=== PATIENT | female | born 1995 | race Caucasian/White ===

== ENCOUNTER → 2018-01-11 11:43 | Outpatient (CLI) | payer MEDICAID, SELFPAY ==
[2018-01-11 14:11] LABS: Absolute Lymphocyte Count 2.58 X10^3/ul (0.83-4.51); Absolute Neutrophil Count 6.5 X10^3/uL (2.0-7.7); Basophil# 0.07 X10^3/uL; Basophil% 0.7 % (0-1); Eosinophil# 0.19 X10^3/uL; Hematocrit 41.9 % (37-47); Lymphocyte # 2.58 X10^3/ul (4.0); Lymphocyte % 26.5 % (19-41); Mean Corp Hgb Conc 33.4 g/gl (32-36); Mean Corpuscular Hgb 27.6 pg (27.0-32.0); Mean Corpuscular Volume 82.6 fL (81-99); Monocyte# 0.42 X10^3/uL; Monocyte% 4.3 % (0-10); Neutrophil # 6.45 X10^3/uL (2.7-7.7); Neutrophil % 66.3 % (47-70); Platelet Count 297 K/mm3 (150-450); RBC Distribution Width CV 14.2 % (11.6-14.6); RBC Distribution Width SD 42.8 fl (35.1-43.9); Red Blood Count 5.07 M/mm3 (4.2-5.4); White Blood Count 9.7 K/mm3 (4.4-11.0)
[2018-01-11 14:12] LABS: POSITIVE COUNT NO; POSITIVE DIFFERENTIAL NO; POSITIVE MORPHOLOGY NO
[2018-01-11 14:37] LABS: AST(SGOT) 29 U/L (15-37); Alanine Aminotransfer ALT/SGPT 44 U/L (13-56); Albumin, Serum 4.5 g/dL (3.2-5.0); Alkaline Phosphatase 51 U/L (45-117); Anion Gap 9 (5-15); BUN 8 mg/dL (7-18); BUN/Creat Ratio 8.3 RATIO (10-20); Calcium,Total 10.4 mg/dL (8.5-10.1); Chloride 104 mmol/L (98-107); Creatinine, Serum 0.96 mg/dL (0.55-1.02); EST Glomerular Filtration Rate 75 mL/min (>60); Est Glom Filt Rate - Afr Amer 91 mL/min (>60); Globulin 4.3 g/dL (2.2-4.2); Glucose 101 mg/dL (74-106); Lipase 121 U/L (73-393); Potassium 4.3 mmol/L (3.5-5.1); Protein, Total 8.8 g/dL (6.4-8.2); Sodium Level 138 mmol/L (136-145); Thyroid Stim Hormone (TSH) 1.15 uIU/mL (0.358-3.74)
== END ==
PROVIDERS: Family Provider Family Medicine; PCP Family Medicine; Visit Provider Family Medicine
DX: R10.11 Right upper quadrant pain (principal)
CPT/HCPCS: 36415; 80053; 83690; 84443; 85025

== ENCOUNTER → 2018-01-12 08:57 | Outpatient (CLI) | payer MEDICAID, SELFPAY ==
--- NOTE | 2018-01-12 09:01 | US_ITS ---
STUDY: ABDOMINAL ULTRASOUND - RIGHT UPPER QUADRANT REASON FOR VISIT: Female, 22 years old. Right upper quadrant pain after cholecystectomy, October 21, 2017. Nausea and vomiting for 2 months. TECHNIQUE: Ultrasound evaluation of the right upper quadrant was performed with real-time and static dominique-scale imaging. TECHNICAL QUALITY: Adequate. COMPARISON: CT of the abdomen and pelvis, March 19, 2014. FINDINGS: Liver: The liver measures 16.1 cm. There is normal echogenicity of the liver. The bile ducts are within normal limits. There is hepatic color flow. The direction of portal flow is hepatopetal. There is no demonstrated mass lesion. Gallbladder: The patient is status post cholecystectomy. No evidence of fluid collection or mass in the gallbladder fossa. Common Bile Duct (C.B.D.): The common bile duct measures 4.7 mm. Pancreas: Normal size of the head, body and tail of the pancreas. There is normal echogenicity of the pancreas. There is no demonstrated pancreatic mass or cyst. Right Kidney: Normal size of the right kidney. The right kidney measures 10.3 cm. Normal renal cortex. The right cortex measures 1.8 cm. There is no demonstrated renal mass or cyst. There is no right hydronephrosis. US/Abdomen Limited IMPRESSION: Normal postcholecystectomy right upper quadrant ultrasound examination. There is no evidence of abnormal fluid collection or mass. Electronically Signed: Frank Haskins DO at 18:52 EDT Tel [phone], Service support ,
== END ==
PROVIDERS: Family Provider Family Medicine; PCP Family Medicine; Visit Provider Family Medicine
DX: R10.11 Right upper quadrant pain (principal)
CPT/HCPCS: 76705

== ENCOUNTER → 2018-06-19 16:08 | Outpatient (CLI) | payer MEDICAID, SELFPAY ==
[2018-06-27 08:58] LABS: HPV HC, High Risk Negative (Negative)
[2018-06-27 08:59] LABS: HPV Reflexed? YES, CHARGE PATIENT
== END ==
PROVIDERS: Visit Provider Obstetrics & Gynecology
DX: Z12.4 Encounter for screening for malignant neoplasm of cervix (principal)
CPT/HCPCS: 87624; 88175; G0145

== ENCOUNTER 2019-01-09 22:50 | Emergency (ER) | payer OTHER, MEDICAID, SELFPAY ==
[2019-01-09 22:50] VITALS: BP 151/88; PULSE 87; RESP 16; TEMP 36.5; O2SAT 98; BMI 37.2
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
== END 2019-01-09 23:22 | disposition home or self-care (01) ==
LOC: ED 23:17
PROVIDERS: Emergency Provider Emergency Medicine; Family Provider Family Medicine; PCP Family Medicine
DX: S09.90XA Unspecified injury of head, initial encounter (principal); S40.012A Contusion of left shoulder, initial encounter; Y08.09XA Assault by strike by other specified type of sport equipment, initial encounter; Y93.9 Activity, unspecified; Y92.199 Unspecified place in other specified residential institution as the place of occurrence of the external cause; Y99.0 Civilian activity done for income or pay; Z90.49 Acquired absence of other specified parts of digestive tract
CPT/HCPCS: 99282

== ENCOUNTER → 2019-01-30 09:55 | Outpatient (CLI) | payer BC, MEDICAID, SELFPAY ==
[2019-01-09 22:50] VITALS: BMI 37.2
[2019-09-26 12:33] VITALS: BMI 37.2
== END ==
PROVIDERS: Family Provider Family Medicine; PCP Family Medicine; Referring Provider Nurse Practitioner Family; Visit Provider Nurse Practitioner Family
DX: R10.813 Right lower quadrant abdominal tenderness (principal)

== ENCOUNTER → 2019-01-30 09:58 | Outpatient (CLI) | payer BC, MEDICAID, SELFPAY ==
[2019-01-09 22:50] VITALS: BMI 37.2
--- NOTE | 2019-01-30 10:02 | RAD_ITS ---
STUDY: X-RAY - ABDOMEN/PELVIS REASON FOR EXAM: Female, 23 years old. Right lower quadrant pain TECHNIQUE: 4 views COMPARISON: None. FINDINGS: Normal visualized lung bases. There is an unremarkable bowel gas pattern. There is no demonstrated free abdominal air. The visualized liver, spleen and kidneys are grossly normal in size and morphology. Normal soft tissue structures. Minimal scoliosis. RAD/Abd Inc Decub and/or Erect IMPRESSION: Normal x-ray examination of the abdomen and pelvis. Electronically Signed: Adalberto Lerma DO at 23:55 EDT Tel [phone], Service support ,
[2019-01-30 12:20] LABS: Anion Gap 5 (5-15); BUN 6 mg/dL (7-18); BUN/Creat Ratio 7.7 RATIO (10-20); Calcium,Total 9.8 mg/dL (8.5-10.1); Chloride 106 mmol/L (98-107); Creatinine, Serum 0.78 mg/dL (0.55-1.02); EST Glomerular Filtration Rate 96 mL/min (>60); Est Glom Filt Rate - Afr Amer 116 mL/min (>60); Glucose 101 mg/dL (74-106); Sodium Level 137 mmol/L (136-145)
[2019-01-30 12:45] LABS: Absolute Lymphocyte Count 2.57 X10^3/ul (0.83-4.51); Absolute Neutrophil Count 4.8 X10^3/uL (2.0-7.7); Basophil# 0.05 X10^3/uL; Basophil% 0.6 % (0-1); Eosinophil# 0.31 X10^3/uL; Eosinophils% 3.7 % (0-5); Hematocrit 41.1 % (37-47); Hemoglobin 13.4 g/dl (12.0-15.0); Lymphocyte # 2.57 X10^3/ul (4.0); Lymphocyte % 30.5 % (19-41); Mean Corp Hgb Conc 32.6 g/gl (32-36); Mean Corpuscular Hgb 26.3 pg (27.0-32.0); Mean Corpuscular Volume 80.7 fL (81-99); Mean Platelet Vol. 11.8 fl (6.2-12.0); Monocyte# 0.64 X10^3/uL; Monocyte% 7.6 % (0-10); Neutrophil # 4.83 X10^3/uL (2.7-7.7); Neutrophil % 57.4 % (47-70); Platelet Count 244 K/mm3 (150-450); RBC Distribution Width CV 14.3 % (11.6-14.6); RBC Distribution Width SD 41.7 fl (35.1-43.9); Red Blood Count 5.09 M/mm3 (4.2-5.4); White Blood Count 8.4 K/mm3 (4.4-11.0)
[2019-01-30 12:59] LABS: POSITIVE COUNT NO; POSITIVE DIFFERENTIAL NO; POSITIVE MORPHOLOGY NO
== END ==
PROVIDERS: Family Provider Family Medicine; PCP Family Medicine; Referring Provider Nurse Practitioner Family; Visit Provider Nurse Practitioner Family
DX: R10.813 Right lower quadrant abdominal tenderness (principal)
CPT/HCPCS: 36415; 74019; 80048; 85025

== ENCOUNTER → 2019-10-07 08:31 | Outpatient (CLI) | payer BC, SELFPAY ==
[2019-09-26 12:33] VITALS: BMI 37.2
--- NOTE | 2019-10-07 08:42 | US_ITS ---
STUDY: ULTRASOUND OF THE FEMALE PELVIS - COMPLETE REASON FOR EXAM: Female, 24 years old. DUB, ABN MENSES - SKIPPING PERIODS LMP: February 18, 2019 TECHNIQUE: Transabdominal and Transvaginal TECHNICAL QUALITY: Adequate. COMPARISON: None. FINDINGS: The uterus is anteverted and is in a midline position. The uterus measures 7.6 x 5.4 sign by 3.6 cm. There is a Nabothian cyst of the cervix. The endometrium measures 10 mm in thickness, and is hyperechoic. There is a 5 mm x 5 mm x 4 mm hypoechoic nodule within the endometrium. An endometrial polyp should be ruled out. There is no demonstrated myometrial mass. I.U.D. - The patient does not have an I.U.D. The right ovary is visualized. The right ovary measures 2.5 cm x 2.9 cm x 3.1 cm. There is no right ovarian cyst or ovarian mass. There is no visualized right adnexal mass or complex lesion. There is normal arterial and normal venous vascularity. The left ovary is visualized. The left ovary measures 3.2 cm x 3 cm x 2.9 cm. There is no left ovarian cyst or ovarian mass. There is no visualized left adnexal mass or complex lesion. There is normal arterial and normal venous vascularity. There is no fluid in the cul-de-sac. The pre void volume of the bladder was 73 ml. Polycystic ovary disease: No. US/Transvaginal Non- IMPRESSION: Findings suggestive of a 5 mm x 5 mm x 4 mm polyp in the endometrium. Electronically Signed: Valentino Tinoco, at 15:21 EST , Service support ,
--- NOTE | 2019-10-07 08:42 | US_ITS ---
STUDY: ULTRASOUND OF THE FEMALE PELVIS - COMPLETE REASON FOR EXAM: Female, 24 years old. DUB, ABN MENSES - SKIPPING PERIODS LMP: February 18, 2019 TECHNIQUE: Transabdominal and Transvaginal TECHNICAL QUALITY: Adequate. COMPARISON: None. FINDINGS: The uterus is anteverted and is in a midline position. The uterus measures 7.6 x 5.4 sign by 3.6 cm. There is a Nabothian cyst of the cervix. The endometrium measures 10 mm in thickness, and is hyperechoic. There is a 5 mm x 5 mm x 4 mm hypoechoic nodule within the endometrium. An endometrial polyp should be ruled out. There is no demonstrated myometrial mass. I.U.D. - The patient does not have an I.U.D. The right ovary is visualized. The right ovary measures 2.5 cm x 2.9 cm x 3.1 cm. There is no right ovarian cyst or ovarian mass. There is no visualized right adnexal mass or complex lesion. There is normal arterial and normal venous vascularity. The left ovary is visualized. The left ovary measures 3.2 cm x 3 cm x 2.9 cm. There is no left ovarian cyst or ovarian mass. There is no visualized left adnexal mass or complex lesion. There is normal arterial and normal venous vascularity. There is no fluid in the cul-de-sac. The pre void volume of the bladder was 73 ml. Polycystic ovary disease: No. US/Pelvic (Non ) IMPRESSION: Findings suggestive of a 5 mm x 5 mm x 4 mm polyp in the endometrium. Electronically Signed: Valentino Tinoco, at 15:21 EST , Service support ,
== END ==
PROVIDERS: Family Provider Family Medicine; PCP Family Medicine; Referring Provider Nurse Practitioner Women's Health; Visit Provider Nurse Practitioner Women's Health
DX: N91.2 Amenorrhea, unspecified (principal)
CPT/HCPCS: 76830; 76856

== ENCOUNTER → 2019-10-13 11:57 | Outpatient (CLI) | payer BC, SELFPAY ==
[2019-09-26 12:33] VITALS: BMI 37.2
[2019-10-13 12:33] LABS: Estradiol 41.7 pg/mL; Prolactin 5.5 ng/mL; Thyroid Stim Hormone (TSH) 0.71 uIU/mL (0.358-3.74)
[2019-10-15 20:07] LABS: DHEA Sulfate 206.1 ug/dL (84.8-378.0)
[2019-10-15 20:48] LABS: Testosterone Free 3.5 pg/mL (0.0-4.2)
== END ==
LOC: LAB 11:59
PROVIDERS: Family Provider Family Medicine; PCP Family Medicine; Referring Provider Nurse Practitioner Women's Health; Visit Provider Nurse Practitioner Women's Health
DX: N91.2 Amenorrhea, unspecified (principal)
CPT/HCPCS: 36415; 82627; 82670; 84146; 84402; 84443; 82626

== ENCOUNTER 2023-03-28 09:04 | Emergency (ER) | payer SELFPAY ==
[2023-03-28 09:05] VITALS: BP 135/74; PULSE 73; RESP 26; TEMP 36.6; O2SAT 99; BMI 32.3
[2023-03-28] MEDS: LORazepam 2 MG/ML Syringe IM (09:42)
--- NOTE | 2023-03-28 09:57 | ED.RN ---
Dr. James states pt. erika not need a sitter at this time.
[2023-03-28 10:10] LABS: Absolute Lymphocyte Count 2.99 X10^3/uL (0.83-4.51); Absolute Neutrophil Count 9.6 X10^3/uL (2.0-7.7); Basophil# 0.09 X10^3/uL; Basophil% 0.7 % (0-1); Eosinophil# 0.24 X10^3/uL; Eosinophils% 1.8 % (0-5); Hematocrit 45.1 % (37-47); Hemoglobin 15.2 g/dL (12.0-15.0); Lymphocyte # 2.99 X10^3/ul (0.83-4.51); Mean Corp Hgb Conc 33.7 g/dL (32-36); Mean Corpuscular Hgb 28.5 pg (27.0-32.0); Mean Corpuscular Volume 84.5 fL (81-99); Mean Platelet Vol. 11.6 fl (6.2-12.0); Monocyte# 0.58 X10^3/uL; Monocyte% 4.3 % (0-10); NRBC Flagged by Analyzer 0 % (0-5); Neutrophil # 9.56 X10^3/uL (2.7-7.7); Neutrophil % 70.3 % (47-70); Platelet Count 290 K/mm3 (150-450); RBC Distribution Width CV 13.3 % (11.6-14.6); RBC Distribution Width SD 40.6 fl (35.1-43.9); Red Blood Count 5.34 M/mm3 (4.2-5.4); White Blood Count 13.6 K/mm3 (4.4-11.0)
[2023-03-28 10:18] LABS: Internal QC Validated? YES +Cl - CLEAR BKGD; Pregnancy, Serum, hCG Quali. NEGATIVE Negative
[2023-03-28 10:21] LABS: Alcohol, Blood (Medical)-Serum < 3.0 mg/dL
[2023-03-28 10:23] LABS: Anion Gap 12 (5-15); BUN 11 mg/dL (7-18); BUN/Creat Ratio 10.2 RATIO (10-20); Calcium,Total 11.1 mg/dL (8.5-10.1); Chloride 106 mmol/L (98-107); Creatinine, Serum 1.08 mg/dL (0.55-1.02); EST Glomerular Filtration Rate 63 mL/min (>60); Est Glom Filt Rate - Afr Amer 77 mL/min (>60); Glucose 160 mg/dL (74-106); Potassium 3.4 mmol/L (3.5-5.1); Sodium Level 138 mmol/L (136-145)
--- NOTE | 2023-03-28 10:55 | EX.ED.VIS.PS ---
HPI HPI - Psych History of Present Illness Chief Complaint: Suicidal Informant: patient and spouse/S.O. Onset/Context/Timing Onset: Today Context: Sudden Onset Timing: Continuous Worsened by: - (Anxiety) Relieved by: Nothing Associated Symptoms Associated Symptoms - Psych: Positive for Depressed, Suicidal Thoughts and Increased activity; Negative for Paranoia, Visual Hallucinations or Auditory Hallucinations Specific plan (suicidal thought): Cutting her wrists Narrative Narrative: Patient presents with anxiety and suicidal ideations that began today. Patient states she woke up feeling very anxious today. Patient states that it has gotten progressively worse. Patient states it is to the point where she has thought of cutting her wrists. The patient denies any visual or auditory hallucinations. Patient states nothing makes her symptoms better nothing makes them worse. Patient denies any recent trauma or illness. Patient does admit to some subjective chills. Patient admits to some nausea and vomiting due to the anxiety. [facility] Medical History PCOS (polycystic ovarian syndrome) Home Medications metformin 1,000 mg tablet 1,000 mg PO BID 03/28/23 [History Last Taken Unknown] Allergy/AdvReac Type Severity Reaction Status Date / Time No Known Allergies Allergy Verified 09/26/19 12:27 Family History (Updated 06/26/19 @ 14:12 by Angelic Kowalski) Mother Cancer skin Surgical History FH: cholecystectomy right salpingectomy Social History number of children: 0 current occupational status: employed current occupation: [employer] Smoking Status: Never smoker Smokeless tobacco user: chewing tobacco alcohol intake: current alcohol intake frequency: holidays/special occasions only substance use type: marijuana seatbelt use: always do you feel safe at home: Yes additional social history: [employer] ROS ROS ED Constitutional Constitutional ED: Reports chills and subjective; Denies fever(s) Eyes Eyes: Denies blurry vision or change in vision ENT ENT ED: Denies rhinorrhea or sore throat Cardiovascular Cardiovascular: Denies chest pain or palpitations Respiratory/Chest Respiratory/Chest: Denies cough or dyspnea Gastrointestinal Gastrointestinal: Reports nausea and vomiting Genitourinary Genitourinary ED: Denies dysuria or hematuria Musculoskeletal Musculoskeletal: Denies back pain or neck pain Integumentary Denies abscess or rash Neurologic Neurologic: Denies headache(s) or weakness Psychiatric Psychiatric: Reports anxiety, suicidal ideation and suicidal thoughts Allergic/Immunologic Allergic/Immunologic ED: Denies mouth swelling or urticaria EXAM Physical Exam Const Vital Signs: 03/28/23 09:05 Temperature 97.9 F Temperature Source Temporal Pulse Rate 73 Respiratory Rate 26 H Blood Pressure 135/74 H Blood Pressure Mean 94 Pulse Ox 99 Oxygen Delivery Method Room Air Positive well nourished, well developed and obese General Appearance ED: well developed and NAD Nutritional Appearance: obese HEENT Reports moist mucous membranes Neck supple and no JVD Resp normal respiratory effort and clear to auscultation bilaterally Cardio regular rate, regular rhythm and no murmurs GI normal to inspection, nondistended, normoactive bowel sounds and non-tender Palpation: soft Extremity normal to inspection General Extremety ED: Negative for edema or tenderness General Extremity: Negative for edema Neuro oriented x3, CN's II-XII intact bilaterally and no sensory deficits noted Sensorium / Orientation: alert Motor Exam: strength 5/5 throughout Psych mental status grossly normal Appearance: grossly normal Activity / Motor Behavior: appropriate eye contact and restless Speech: normal speech Mood & Affect: anxious Thought Process: normal thought process Thought Content: normal thought content Memory / Cognition: memory grossly intact Skin no rashes or lesions noted MDM MDM MDM Narrative Medical decision making narrative: Basic medical labs will be obtained for medical clearance. CBC will be obtained to assess for leukocytosis and anemia. Basic metabolic profile will be obtained to assess for electrolyte abnormality and renal function. Serum hCG will be obtained to assess for . Urinalysis will be obtained to assess for urinary tract infection and hematuria. Urine tox screen will be obtained to assess for substance abuse. Serum alcohol level will be obtained to assess for alcohol intoxication. Lab Data Attestation: I reviewed the patient's lab results. Lab results narrative: CBC shows a slight leukocytosis of 13.6. Basic metabolic profile was essentially within normal limits. Serum alcohol level was less than 3. Serum hCG was negative. Urinalysis was reviewed. There is no evidence of hematuria or urinary tract infection. Urine tox screen was reviewed and was positive for opiates and cannabinoids. Labs: Laboratory Results - last 24 hr 03/28/23 03/28/23 03/28/23 10:00 10:00 10:00 WBC 13.6 H RBC 5.34 Hgb 15.2 H Hct 45.1 MCV 84.5 MCH 28.5 MCHC 33.7 RDW Std Deviation 40.6 RDW Coeff of Jennifer 13.3 Plt Count 290 MPV 11.6 Immature Gran % (Auto) 0.900 Neut % (Auto) 70.3 H Lymph % (Auto) 22.0 [place] % (Auto) 4.3 Eos % (Auto) 1.8 Baso % (Auto) 0.7 Absolute Neuts (auto) 9.6 H Absolute Lymphs (auto) 2.99 Nucleated RBC % 0 Sodium 138 Potassium 3.4 L Chloride 106 Carbon Dioxide 20.0 L Anion Gap 12 BUN 11 Creatinine 1.08 H Estim Creat Clear Calc 71.30 Est GFR (MDRD) Af Amer 77 Est GFR (MDRD) Non-Af 63 BUN/Creatinine Ratio 10.2 Glucose 160 H Calcium 11.1 H Serum , Qual Urine Color Urine Clarity Urine pH Ur Specific [employer] Mdl Urine Protein Urine Glucose (UA) Urine Ketones Urine Occult Blood Urine Nitrite Urine Bilirubin Urine Urobilinogen Ur Leukocyte Esterase Urine RBC Urine WBC Ur Squamous Epith Cells Urine Bacteria Urine Mucus Urine Opiates Screen Urine Methadone Screen Ur Barbiturates Screen Ur Phencyclidine Scrn Ur Amphetamines Screen MDMA (Ecstasy) Screen U Benzodiazepines Scrn Urine Cocaine Screen U Cannabinoids Screen Ur Drug Screen Comment Ethyl Alcohol < 3.0 03/28/23 03/28/23 03/28/23 10:00 14:15 14:15 WBC RBC Hgb Hct MCV MCH MCHC RDW Std Deviation RDW Coeff of Jennifer Plt Count MPV Immature Gran % (Auto) Neut % (Auto) Lymph % (Auto) [place] % (Auto) Eos % (Auto) Baso % (Auto) Absolute Neuts (auto) Absolute Lymphs (auto) Nucleated RBC % Sodium Potassium Chloride Carbon Dioxide Anion Gap BUN Creatinine Estim Creat Clear Calc Est GFR (MDRD) Af Amer Est GFR (MDRD) Non-Af BUN/Creatinine Ratio Glucose Calcium Serum , Qual NEGATIVE Urine Color Straw Urine Clarity Clear Urine pH 8.0 Ur Specific [employer] Mdl 1.015 Urine Protein 30 H Urine Glucose (UA) Normal Urine Ketones 150 A* Urine Occult Blood Negative Urine Nitrite Negative Urine Bilirubin Negative Urine Urobilinogen Normal Ur Leukocyte Esterase Negative Urine RBC 0 SEEN Urine WBC 0 SEEN Ur Squamous Epith Cells 0 SEEN Urine Bacteria 0 SEEN Urine Mucus 0 SEEN Urine Opiates Screen POSITIVE H Urine Methadone Screen NEGATIVE Ur Barbiturates Screen NEGATIVE Ur Phencyclidine Scrn NEGATIVE Ur Amphetamines Screen NEGATIVE MDMA (Ecstasy) Screen NEGATIVE U Benzodiazepines Scrn NEGATIVE Urine Cocaine Screen NEGATIVE U Cannabinoids Screen POSITIVE H Ur Drug Screen Comment Ethyl Alcohol Management Discussion w/another healthcare provider: production staff worker/Case management Treatment and Re-Evaluation Narrative: Patient was given a dose of Ativan initially. Patient was having more abdominal pain when crisis came to evaluate the patient. Patient was given a dose of morphine for this. Patient was feeling better after this. Crisis was able to evaluate the patient and felt patient would benefit from inpatient treatment for her suicidal ideations. Crisis will attempt to find placement. However, the patient is uninsured and will likely need to be transferred to [facility]. Care of the patient will be turned over to the oncoming physician pending psychiatric placement. Discharge Plan Triage Chief Complaint: Suicidal Other Complaint: Anxiety ED Provider: Omkar James Dx/Rx/DC Orders Clinical Impression: Suicidal ideations, Acute anxiety Prescriptions: No Action metformin 1,000 mg Tablet 1,000 mg PO BID Primary Care Provider: Care Physician,No Primary Referrals: Care Physician,No Primary [Primary Care Provider] - Disposition Disposition: Psychiatric Hospital or Unit
--- NOTE | 2023-03-28 11:33 | CM.ED ---
Social Work SW introduced self and role to patient and spouse. SW conducted a risk assessment which indicated patient has SI with a plan exacerbated by anxiety with current panic attack. Pt has multiple stressors and self-reports a history of untreated mental health concerns. Patient moved from [place] yesterday with spouse for family support and currently has no insurance. Pt believes a psych placement would be helpful and SW is in agreement, especially in light of high risk factors, no insurance and no established services currently. SW explained process to patient and contacted crisis for evaluation. SW faxed chart to crisis. Plan: Crisis to evaluate patient with likely placement that will require indigent funding. Glory Molina PRODUCT TECHNICIAN, ENGINEERING AID
[2023-03-28] MEDS: Morphine 4 MG/ML Syringe IM (13:01)
[2023-03-28 14:24] LABS: Bacteria 0 SEEN /hpf (None Seen); Mucous, Urine 0 SEEN /hpf (<or=2+); Red Blood Cells-Urine 0 SEEN /hpf (0-5); Squamous Epithelial Cells - UA 0 SEEN /hpf (5-10); White Blood Cells 0 SEEN /hpf (0-5)
[2023-03-28 14:33] LABS: Color, Urine Straw (Yellow); Glucose, Dipstick Normal (Normal); Leukocyte Esterase-Dipstick Negative /ul (Negative); Nitrite-Dipstick Negative (Negative); Occult Blood-Urine Negative /ul (Negative); Protein-Dipstick 30 mg/dl (Negative); Specific Gravity, Urine 1.015 (1.002-1.030); Urine Bilirubin Dipstick Negative (Negative); Urine Clarity Clear (Clear); Urine Urobilinogen Normal (Normal)
[2023-03-28 14:40] LABS: Ketone-Dipstick 150 mg/dl (Negative)
[2023-03-28 14:58] LABS: Amphetamine Urine VISTA NEGATIVE (<1000 ng/mL); Barbiturate Urine VISTA NEGATIVE (< 200 ng/mL); Benzodiazepine Urine VISTA NEGATIVE (< 200 ng/mL); Cocaine Urine VISTA NEGATIVE (< 300 ng/mL); Ecstacy Urine VISTA NEGATIVE (< 500 ng/mL); Methadone Urine VISTA NEGATIVE (< 300 ng/mL); PCP Urine VISTA NEGATIVE (< 25 ng/mL); THC Urine VISTA POSITIVE (< 50 ng/mL); Vista UDS pH Range 7
[2023-03-28 16:15] VITALS: BP 117/93; PULSE 90; RESP 18; TEMP 35.9; O2SAT 98
--- NOTE | 2023-03-28 16:26 | EKG12_ITS ---
Test Reason : Blood Pressure : / mmHG Vent. Rate : 063 BPM Atrial Rate : 063 BPM P-R Int : 162 ms QRS Dur : 090 ms QT Int : 416 ms P-R-T Axes : 034 -02 -02 degrees QTc Int : 425 ms Sinus rhythm with marked sinus arrhythmia Nonspecific T wave abnormality Abnormal ECG No previous ECGs available Confirmed by SOL BATISTA, JOANA ([id number]), assistant film editor ARNALDO VAZQUEZ ([id number]) on 03/31/2023 9:26:47 AM Referred By: Confirmed By:JOANA HORTON MD
--- NOTE | 2023-03-28 16:28 | NURSING ---
NO OLD EKGS
[2023-03-28] MEDS: Ondansetron ODT 4 MG Tablet PO (16:43)
--- NOTE | 2023-03-28 20:02 | CM.ED ---
Social Work Crisis called to report patient has been referred to [facility]. [place] CNO reports physician will review tomorrow. Glory Molina FUNDRAISING DIRECTOR, PSYCHIATRIC MENTAL HEALTH NURSE
[2023-03-28 21:36] VITALS: BP 137/84; PULSE 89; RESP 18; TEMP 36.8; O2SAT 98
[2023-03-28 23:00] VITALS: RESP 16
[2023-03-29] VITALS (7 sets, daily range): BP systolic 117–148; BP diastolic 60–83; PULSE 72–78; RESP 16–18; TEMP 36.2–36.4; O2SAT 98–99
[2023-03-29] MEDS: traZODone 100 MG Tablet PO (01:18)
--- NOTE | 2023-03-29 07:24 | ED.RN ---
see patient down time charting from [id number]
--- NOTE | 2023-03-29 07:25 | ED.RN ---
[facility] called for additional information faxed to them. information given to them and faxed to them per their request
[2023-03-29] MEDS: Ondansetron ODT 4 MG Tablet PO ×3 (09:30→21:44)
[2023-03-29] MEDS: LORazepam 1 MG Tablet PO (09:30)
--- NOTE | 2023-03-29 10:54 | CM.ED ---
Social Work SW spoke with [facility] and [place] CNO. [place] reports psychiatrist has medical concerns and is having their packaging design engineer review medical documentation. Requested [facility] to notify hospital if any further tests are needed. Glory Molina PANTS CLOSER, YARD STOCKER
[2023-03-29 12:30] LABS: Absolute Lymphocyte Count 4.08 X10^3/uL (0.83-4.51); Absolute Neutrophil Count 11.2 X10^3/uL (2.0-7.7); Basophil# 0.06 X10^3/uL; Basophil% 0.4 % (0-1); Eosinophil# 0.06 X10^3/uL; Eosinophils% 0.4 % (0-5); Hematocrit 39.9 % (37-47); Hemoglobin 13.7 g/dL (12.0-15.0); Lymphocyte # 4.08 X10^3/ul (0.83-4.51); Lymphocyte % 24.7 % (19-41); Mean Corp Hgb Conc 34.3 g/dL (32-36); Mean Corpuscular Hgb 28.8 pg (27.0-32.0); Mean Corpuscular Volume 83.8 fL (81-99); Mean Platelet Vol. 11.4 fl (6.2-12.0); Monocyte# 1.07 X10^3/uL; Monocyte% 6.5 % (0-10); NRBC Flagged by Analyzer 0 % (0-5); Neutrophil # 11.17 X10^3/uL (2.7-7.7); Neutrophil % 67.3 % (47-70); Platelet Count 308 K/mm3 (150-450); RBC Distribution Width CV 13.7 % (11.6-14.6); RBC Distribution Width SD 41.5 fl (35.1-43.9); Red Blood Count 4.76 M/mm3 (4.2-5.4); White Blood Count 16.6 K/mm3 (4.4-11.0)
--- NOTE | 2023-03-29 12:51 | ED.RN ---
gave patient a menu to look at for lunch order
--- NOTE | 2023-03-29 13:07 | CT_ITS ---
INDICATION: vomiting, leukocytosis EXAMINATION: CT ABDOMEN AND PELVIS WITHOUT CONTRAST - CT Abdomen And Pelvis W/O Contrast Injection TECHNIQUE: Helically acquired images were obtained of the abdomen and pelvis without oral or IV contrast. A radiation dose optimization technique was used for this scan. IV Contrast dosage and agent: None. Oral contrast: None. RADIATION DOSAGE (If Supplied By Facility): CTDIvol = ( 18.50 ) mGy, DLP = ( 1012.25 ) mGycm COMPARISON: Prior study dated: March 19, 2014 FINDINGS: LOWER CHEST: Lung bases are clear. No cardiomegaly or pericardial effusion. The lack of intravenous contrast limits evaluation of solid visceral organs. LIVER: Homogeneous. No focal mass. GALLBLADDER AND BILIARY TREE: There is nonvisualization of the gallbladder. No intra- or extrahepatic biliary ductal dilation. PANCREAS: No focal cystic or solid mass. SPLEEN: Normal size without focal cystic or solid mass. ADRENAL GLANDS: No nodules. KIDNEYS AND URETERS: Normal renal size and position. No hydronephrosis. PERITONEUM: No ascites or free air. No other fluid collection. BOWEL: No evidence of acute appendicitis. No stomach or bowel distension. There are scattered diverticula arising from the colon. No focal inflammatory change. LYMPH NODES: No enlarged mesenteric or retroperitoneal lymph nodes. VESSELS: Aorta is non-dilated. URINARY BLADDER: Unremarkable. REPRODUCTIVE ORGANS: No pelvic masses. There is a surgical clip within the pelvis and midline. ABDOMINAL WALL: There is a small fat-containing umbilical hernia. BONES: No lytic or blastic abnormality. CT/Abdomen/Pelvis without Cont IMPRESSION: No acute intra-abdominal process. Colonic diverticulosis. Small fat-containing umbilical hernia. Electronically Signed: Marjorie Toriibo MD at 13:35 EDT ,
[2023-03-29 13:15] LABS: Bacteria 0 SEEN /hpf (None Seen); Mucous, Urine 0 SEEN /hpf (<or=2+); Red Blood Cells-Urine 0 SEEN /hpf (0-5); Squamous Epithelial Cells - UA 0 SEEN /hpf (5-10); White Blood Cells 0 SEEN /hpf (0-5)
[2023-03-29 13:25] LABS: Color, Urine Yellow (Yellow); Glucose, Dipstick Normal (Normal); Ketone-Dipstick 15 mg/dl (Negative); Leukocyte Esterase-Dipstick 25 /ul (Negative); Nitrite-Dipstick Negative (Negative); Occult Blood-Urine 25 /ul (Negative); Protein-Dipstick 30 mg/dl (Negative); Specific Gravity, Urine 1.025 (1.002-1.030); Urine Bilirubin Dipstick Negative (Negative); Urine Clarity Sl. Cloudy (Clear); Urine Urobilinogen 1 mg/dl (Normal)
[2023-03-29 13:45] LABS: Amorphous Sediment 3+
--- NOTE | 2023-03-29 16:07 | CM.ED ---
Social Work SW notified by crisis that [facility] was requesting more medical clearance. SW spoke with [place] CNO twice and after ammonia still operator reviewed they requested a urinalysis and abd/pelvis CT. Tests completed and faxed to [facility] with updated H&P. Glory Molina MSW, BLACK ASH BURNER OPERATOR
--- NOTE | 2023-03-29 20:16 | NURSING ---
RAMONE FROM CRISIS CALLED STATING [facility] RECEIVED ALL THE INFO BUT WILL HAVE TO WAIT TILL TOMORROW TO REVIEW EVERYTHING.
[2023-03-30] VITALS (7 sets, daily range): BP systolic 141–150; BP diastolic 79–85; PULSE 79–81; RESP 14–18; O2SAT 95–96
[2023-03-30] MEDS: LORazepam 1 MG Tablet PO (05:24)
--- NOTE | 2023-03-30 08:15 | ED.RN ---
pt states that she has not been taking morning dose of Metformin to do lack of eating the last couple of months. pt states she is only taking evening dose.
[2023-03-30 09:26] LABS: Bedside Glucose 121 mg/dL (74-106)
== END 2023-03-30 11:25 ==
PROVIDERS: Emergency Medicine; Emergency Provider Emergency Medicine; Visit Provider Emergency Medicine
DX: F41.9 Anxiety disorder, unspecified (principal); Z59.7 Insufficient social insurance and welfare support; R45.851 Suicidal ideations; R11.2 Nausea with vomiting, unspecified; F32.A Depression, unspecified; E66.9 Obesity, unspecified; D72.829 Elevated white blood cell count, unspecified
CPT/HCPCS: 36415; 74176; 80048; 80307; 81001; 82077; 82962; 84703; 85025; 87428; 93005; 96372; 99281; J7030; A4216

== ENCOUNTER 2024-02-23 04:46 | Emergency (ER) | payer SELFPAY ==
[2024-02-23 04:47] VITALS: BP 131/88; PULSE 67; RESP 18; TEMP 36.3; O2SAT 99
--- NOTE | 2024-02-23 05:06 | EDS_ITS ---
HPI History of Present Illness Chief Complaint: Nausea/Vomiting/Diarrhea Informant: patient and spouse/S.O. Narrative Narrative: Patient is a 29-year-old female with past medical history of PCOS and previous cholelithiasis requiring cholecystectomy. She states beginning afternoon she developed generalized abdominal discomfort with bouts of nausea vomiting and diarrhea. She states she has had subjective fevers and chills with this. She denies any known sick contacts. She denies any travel outside the country or recent antibiotic use. She states has been no new medications. She denies any blood or discoloration in either the emesis or stool. However she has not been able to keep anything down for approximately 24 hours and secondary to his comes to the hospital for evaluation [facility] Medical History PCOS (polycystic ovarian syndrome) Home Medications ?Medication ?Instructions ?Recorded ?Last Taken ?Type metformin 1,000 mg tablet 1,000 mg PO BID 03/28/23 Unknown History duloxetine 30 mg capsule,delayed 30 mg PO DAILY 02/23/24 Unknown History release (Cymbalta) oxycodone-acetaminophen 5 mg-325 1 tab PO Q6H PRN pain 3 days #12 02/23/24 Unknown Rx mg tablet (Percocet) tabs progesterone micronized 200 mg 200 mg PO QHS 02/23/24 Unknown History capsule promethazine 25 mg tablet 25 mg PO TID PRN nausea and 02/23/24 Unknown Rx vomiting 7 days #21 tabs propranolol 80 mg capsule,24 20 mg PO BID PRN anxiety 02/23/24 Unknown History hr,extended release Allergy/AdvReac Type Severity Reaction Status Date / Time No Known Allergies Allergy Verified 02/23/24 04:50 Family History (Updated 06/26/19 @ 14:12 by Angelic Kowalski) Mother Cancer skin Surgical History FH: cholecystectomy right salpingectomy Social History number of children: 0 current occupational status: employed current occupation: [employer] Smoking Status: Current some day smoker tobacco type: cigarettes Smokeless tobacco user: chewing tobacco alcohol intake: current alcohol intake frequency: holidays/special occasions only substance use type: marijuana seatbelt use: always do you feel safe at home: Yes additional social history: [employer] ROS ROS ED Constitutional Constitutional ED: Reports chills, fever(s) and subjective ENT ENT ED: Denies sore throat Cardiovascular Cardiovascular: Denies chest pain, palpitations or racing heartbeat Respiratory/Chest Respiratory/Chest: Denies cough or dyspnea Gastrointestinal Gastrointestinal: Reports abdominal pain, diarrhea, nausea and vomiting; Denies melena Genitourinary Genitourinary ED: Denies dysuria or hematuria Musculoskeletal Musculoskeletal: Reports myalgias Integumentary Denies rash Neurologic Neurologic: Denies headache(s) Hematologic/Lymphatic Hematologic/Lymphatic: Denies easy bleeding or easy bruising EXAM Physical Exam Const Vital Signs: 02/23/24 04:47 Temperature 97.4 F L Temperature Source Temporal Pulse Rate 67 Respiratory Rate 18 Blood Pressure 131/88 H Blood Pressure Mean 102 Pulse Ox 99 Oxygen Delivery Method Room Air Positive well nourished, well developed and obese General Appearance ED: well developed; Negative for pallor Nutritional Appearance: obese HEENT Reports dry mucous membranes HEENT Narrative: Mucous membranes are dry and tacky No tongue or lip swelling no oral lesions no airway edema or compromise No signs of infection noted in the posterior pharynx Mouth ED: Yes dry mucous membranes Mouth: dry mucous membranes Eyes PERRL and EOMs intact bilaterally General Eye ED: Negative for scleral icterus Neck supple Resp normal respiratory effort and clear to auscultation bilaterally Cardio regular rate and regular rhythm Rate: other Other Details: Heart is regular rate and rhythm without murmurs rubs or gallops Radial and carotid pulses are equal and symmetric GI non-distended GI Narrative: Abdomen is soft and nondistended with hyperactive bowel sounds. There is mild diffuse pain on palpation without voluntary guarding or rigidity. No pulsatile mass or fluid wave. Auscultation: hyperactive bowel sounds Palpation: soft Back/Spine no CVA tenderness Extremity normal to inspection Neuro oriented x3, CN's II-XII intact bilaterally and no sensory deficits noted Sensorium / Orientation: alert Motor Exam: strength 5/5 throughout Psych mental status grossly normal Skin no rashes or lesions noted and no wounds Skin Narrative: Skin turgor is slightly increased General Skin Exam: Negative for jaundice or pallor MDM MDM MDM Narrative Medical decision making narrative: Patient arrived to the ER with stable vitals and a soft nonsurgical abdomen. Differential diagnosis for her reports of nausea vomiting diarrhea could be secondary to a viral gastroenteritis such as [place] virus or rotavirus. There is concern for pancreatitis versus diverticulitis versus colitis. With her bouts of vomiting and diarrhea and poor oral intake there is concern for acute kidney injury or electrolyte abnormality. Secondary to his basic labs were obtained. Patient's white count is elevated approximately 22 but otherwise labs revealed no clinically significant findings. I discussed with patient and significant other the potential for a abdominal CT secondary to the leukocytosis. However I do feel this is most likely stress response as her abdomen is soft and nonsurgical. The patient reports that after IV fluids as well as medication in the ER that she is pain-free. On reevaluation her abdomen remains soft and nonsurgical and therefore at this time the patient does not want imaging studies. The patient was given a oral challenge and can tolerate this without difficulty. Therefore at this time as patient's had resolution of symptoms and has been rehydrated and it appears that her leukocytosis is most likely stress response and not infectious related and she is not consenting to a CT scan she will be placed on oral medication to control for further bouts of nausea/vomiting/pain and is otherwise safe for discharge. History & Record Review Discussion w/independent historian: Patient and Significant other Lab Data Attestation: I reviewed the patient's lab results. Labs: Laboratory Results - last 24 hr 02/23/24 04:52 WBC 21.8 H RBC 4.74 Hgb 13.7 Hct 40.0 MCV 84.4 MCH 28.9 MCHC 34.3 RDW Std Deviation 39.8 RDW Coeff of Jennifer 13.0 Plt Count 283 MPV 11.9 Immature Gran % (Auto) 0.800 Neut % (Auto) 84.5 H Lymph % (Auto) 11.6 L [place] % (Auto) 2.7 Eos % (Auto) 0.1 Baso % (Auto) 0.3 Absolute Neuts (auto) 18.4 H Absolute Lymphs (auto) 2.52 Nucleated RBC % 0 Sodium 137 Potassium 4.1 Chloride 103 Carbon Dioxide 21.0 Anion Gap 13 BUN 12 Creatinine 1.03 H Est GFR (MDRD) Af Amer 80 Est GFR (MDRD) Non-Af 66 BUN/Creatinine Ratio 11.7 Glucose 174 H Calcium 11.0 H Magnesium 1.9 Total Bilirubin 1.40 H Direct Bilirubin 0.24 AST 44 H ALT 61 H Alkaline Phosphatase 55 Total Protein 8.4 H Albumin 4.3 Globulin 4.1 Lipase 29 Serum , Qual NEGATIVE Discharge Plan Triage Chief Complaint: Nausea/Vomiting/Diarrhea ED Provider: Nolan Cervantes Dx/Rx/DC Orders Clinical Impression: Nausea vomiting and diarrhea, Dehydration, PCOS (polycystic ovarian syndrome) Instructions: ED Dehydration (Adult), ED Gastroenteritis, Viral (Adult) Prescriptions: New promethazine 25 mg tablet 25 mg PO TID PRN (Reason: nausea and vomiting) 7 Days Qty: 21 0RF oxycodone-acetaminophen [Percocet] 5-325 mg tablet 1 tab PO Q6H PRN (Reason: pain) 3 Days Qty: 12 0RF No Action metformin 1,000 mg Tablet 1,000 mg PO BID progesterone micronized 200 mg capsule 200 mg PO QHS propranolol 80 mg capsule,extended release 24 hr 20 mg PO BID PRN (Reason: anxiety) Rx Instructions: half a tablet to 2 tablets up to twice a day duloxetine [Cymbalta] 30 mg capsule,delayed release(DR/EC) 30 mg PO DAILY Rx Instructions: one capsule for 14 days and then increase to 2capsule Primary Care Provider: Care Physician,No Primary Referrals: Mario Mills MD [Med Staff - Active Staff] - Care Physician,No Primary [Primary Care Provider] - Activity Restrictions/Additional Instructions: Your symptoms and workup is most consistent with a viral stomach infection known as gastroenteritis. This will last anywhere from 1 to 7 days with the average being 3 days. Take the medication as directed to help control symptoms and keep yourself well-hydrated. If you have worsening of symptoms or any further concerns please return to the ER for repeat evaluation Print Language: Bots[place]an Disposition Disposition: Home, Self Care
[2024-02-23] MEDS: DiphenhydrAMINE 50 MG/ML Syringe 12.5 MG IV (05:11)
[2024-02-23] MEDS: Morphine 4 MG/ML Syringe IV (05:12)
[2024-02-23] MEDS: proCHLORPERazine 10 MG/2 ML Vial IV (05:12)
[2024-02-23] MEDS: 0.9% Normal Saline (1000mL) 1,000 ML 999 ML IV ×2 (05:14→05:36)
[2024-02-23 05:20] LABS: Absolute Lymphocyte Count 2.52 X10^3/uL (0.83-4.51); Absolute Neutrophil Count 18.4 X10^3/uL (2.0-7.7); Basophil# 0.07 X10^3/uL; Basophil% 0.3 % (0-1); Eosinophil# 0.02 X10^3/uL; Eosinophils% 0.1 % (0-5); Hemoglobin 13.7 g/dL (12.0-15.0); Lymphocyte # 2.52 X10^3/ul (0.83-4.51); Lymphocyte % 11.6 % (19-41); Mean Corp Hgb Conc 34.3 g/dL (32-36); Mean Corpuscular Hgb 28.9 pg (27.0-32.0); Mean Corpuscular Volume 84.4 fL (81-99); Mean Platelet Vol. 11.9 fl (6.2-12.0); Monocyte# 0.59 X10^3/uL; Monocyte% 2.7 % (0-10); NRBC Flagged by Analyzer 0 % (0-5); Neutrophil # 18.43 X10^3/uL (2.7-7.7); Neutrophil % 84.5 % (47-70); Platelet Count 283 K/mm3 (150-450); RBC Distribution Width SD 39.8 fl (35.1-43.9); Red Blood Count 4.74 M/mm3 (4.2-5.4); White Blood Count 21.8 K/mm3 (4.4-11.0)
[2024-02-23 05:45] LABS: Internal QC Validated? YES +Cl - CLEAR BKGD; Pregnancy, Serum, hCG Quali. NEGATIVE Negative
[2024-02-23 05:53] LABS: AST(SGOT) 44 U/L (15-37); Alanine Aminotransfer ALT/SGPT 61 U/L (13-56); Albumin, Serum 4.3 g/dL (3.2-5.0); Alkaline Phosphatase 55 U/L (45-117); Anion Gap 13 (5-15); BUN 12 mg/dL (7-18); BUN/Creat Ratio 11.7 RATIO (10-20); Bilirubin, Direct 0.24 mg/dL (0.00-0.30); Chloride 103 mmol/L (98-107); Creatinine, Serum 1.03 mg/dL (0.55-1.02); EST Glomerular Filtration Rate 66 mL/min (>60); Est Glom Filt Rate - Afr Amer 80 mL/min (>60); Globulin 4.1 g/dL (2.2-4.2); Glucose 174 mg/dL (74-106); Lipase 29 U/L (13-75); Magnesium 1.9 mg/dL (1.6-2.6); Potassium 4.1 mmol/L (3.5-5.1); Protein, Total 8.4 g/dL (6.4-8.2); Sodium Level 137 mmol/L (136-145)
[2024-02-23 06:44] VITALS: BP 95/55; PULSE 85; RESP 16; TEMP 36.4; O2SAT 95
[2024-02-23 06:46] VITALS: BP 95/55; PULSE 62; RESP 16; O2SAT 97
== END 2024-02-23 06:50 | disposition home or self-care (01) ==
PROVIDERS: Emergency Provider Emergency Medicine; Visit Provider Emergency Medicine
DX: R11.2 Nausea with vomiting, unspecified (principal); E86.0 Dehydration; R19.7 Diarrhea, unspecified; E28.2 Polycystic ovarian syndrome; F17.210 Nicotine dependence, cigarettes, uncomplicated; F17.220 Nicotine dependence, chewing tobacco, uncomplicated; Z90.49 Acquired absence of other specified parts of digestive tract; Z79.84 Long term (current) use of oral hypoglycemic drugs; Z79.899 Other long term (current) drug therapy
CPT/HCPCS: 80048; 80076; 83690; 83735; 84703; 85025; 96361; 96374; 96375; 99282; J7030; A4216

== ENCOUNTER 2024-07-15 15:15 | Emergency (ER) | payer MEDICAID, SELFPAY ==
[2024-07-15 15:15] VITALS: BP 125/71; PULSE 67; RESP 15; TEMP 36; O2SAT 98; BMI 33.1
--- NOTE | 2024-07-15 16:29 | CT_ITS ---
STUDY: CT ABDOMEN AND PELVIS WITH CONTRAST REASON FOR EXAM: Female, 29 years old. abdominal pain RADIATION DOSAGE (If Supplied By Facility): CTDIvol = ( 16.16 ) mGy, DLP = ( 995.46 ) mGycm TECHNIQUE: Transaxial images were obtained from the dome of the diaphragm to the symphysis pubis without oral contrast. IV 100mL Isovue-370 was administered. Sagittal and coronal images were reconstructed. Individualized dose optimization techniques were used for this CT. COMPARISON: March 29, 2023 FINDINGS: The visualized lung bases are unremarkable. The visualized portions of the heart are within normal limits. Normal liver. Gallbladder has been removed surgically . Normal spleen. Normal pancreas. Normal bilateral adrenal glands. Normal right kidney. Normal left kidney. Normal visualized stomach. Normal small intestine. Minor diverticular changes of the colon without evidence for acute diverticulitis. The appendix is visualized and appears normal. Normal abdominal aorta. Normal inferior vena cava. Normal retroperitoneum. Normal urinary bladder. Normal abdominal wall. Normal osseous structures. CT/Abdomen/Pelvis W IV Cont ONLY IMPRESSION: Minor diverticular changes of the colon without evidence for acute diverticulitis. No evidence for small bowel obstruction or other acute abnormality status post cholecystectomy Electronically Signed: Braden Golden MD at 18:39 EDT ,
--- NOTE | 2024-07-15 16:33 | EX.ED.DYSGE1 ---
HPI History of Present Illness Chief Complaint: Nausea/Vomiting Detail of Chief Complaint: Nausea and vomiting Informant: patient Narrative Narrative: Patient presents to the emergency department with complaint of nausea and vomiting. Patient states that she traveled to [facility] 3 days ago and drank heavily that night. The following day she started vomiting and had vomited multiple times and had some bright red blood noted in the vomit. Patient states that she continues to vomit although it has lessened. She describes some upper abdomen discomfort as well. She was seen in urgent care and referred to the emergency department. Patient tells me she has had prior cholecystectomy. Patient tells me she started her menstrual period today but her periods are very irregular and that she has PCOS and sometimes she can go 6 months without a period. Patient also has not had a bowel movement in about 4 days which is unusual for her but she is not eating very much. Patient denies any fevers. Patient has taken Pepto-Bismol at some point she had some black emesis. Patient states that she is a daily marijuana smoker. [facility] Medical History PCOS (polycystic ovarian syndrome) Home Medications ?Medication ?Instructions ?Recorded ?Last Taken ?Type metformin 1,000 mg tablet 1,000 mg PO BID 03/28/23 Unknown History duloxetine 30 mg capsule,delayed 30 mg PO DAILY 02/23/24 Unknown History release (Cymbalta) oxycodone-acetaminophen 5 mg-325 1 tab PO Q6H PRN pain 3 days #12 02/23/24 Unknown Rx mg tablet (Percocet) tabs progesterone micronized 200 mg 200 mg PO QHS 02/23/24 Unknown History capsule promethazine 25 mg tablet 25 mg PO TID PRN nausea and 02/23/24 Unknown Rx vomiting 7 days #21 tabs propranolol 80 mg capsule,24 20 mg PO BID PRN anxiety 02/23/24 Unknown History hr,extended release lansoprazole 30 mg capsule,delayed 30 mg PO DAILY #14 caps 07/15/24 Unknown Rx release (Prevacid) ondansetron 4 mg disintegrating 4 mg PO Q8H PRN PRN Nausea #10 tabs 07/15/24 Unknown Rx tablet Allergy/AdvReac Type Severity Reaction Status Date / Time No Known Allergies Allergy Verified 07/15/24 15:15 Family History (Updated 06/26/19 @ 14:12 by Angelic Kowalski) Mother Cancer skin Surgical History FH: cholecystectomy right salpingectomy Social History number of children: 0 current occupational status: employed current occupation: [employer] Smoking Status: Never smoker Smokeless tobacco user: chewing tobacco alcohol intake: current alcohol intake frequency: holidays/special occasions only substance use type: marijuana seatbelt use: always do you feel safe at home: Yes additional social history: [employer] ROS ROS ED Review of Systems ROS Unobtainable: other Constitutional Constitutional ED: Reports lethargy; Denies chills, fever(s), sweats or weight loss Eyes Eyes: Denies blurry vision, change in vision or diplopia ENT ENT ED: Denies rhinorrhea or sore throat Cardiovascular Cardiovascular: Denies chest pain, orthopnea or racing heartbeat Respiratory/Chest Respiratory/Chest: Denies cough, dyspnea, dyspnea on exertion, orthopnea or sputum Gastrointestinal Gastrointestinal: Reports abdominal pain, constipation, nausea and vomiting; Denies diarrhea Genitourinary Genitourinary ED: Denies dysuria, hematuria or urinary frequency Musculoskeletal Musculoskeletal: Denies arthralgias, back pain, myalgias or neck pain Integumentary Denies abscess, Abrasions or rash Neurologic Neurologic: Denies headache(s) or weakness Psychiatric Psychiatric: Denies anxiety, depression or suicidal thoughts Endocrine Endocrinology: Denies polydipsia, polyphagia or polyuria Hematologic/Lymphatic Hematologic/Lymphatic: Denies easy bleeding, easy bruising or lymphadenopathy Allergic/Immunologic Allergic/Immunologic ED: Denies mouth swelling, tongue swelling or urticaria EXAM Physical Exam Const Vital Signs: 07/15/24 15:15 07/15/24 17:15 Temperature 96.8 F L Temperature Source Temporal Pulse Rate 67 63 Respiratory Rate 15 Blood Pressure 125/71 H 112/64 Blood Pressure Mean 89 80 Pulse Ox 98 Oxygen Delivery Method Room Air Room Air Positive well nourished and well developed General Appearance ED: well developed and NAD HEENT Reports TM's clear and moist mucous membranes normocephalic and atraumatic; Negative for trauma or tenderness Tympanic Membrane ED: Yes TM's clear Eyes PERRL and EOMs intact bilaterally General Eye ED: Negative for pale conjunctiva or scleral icterus Neck no lymphadenopathy, supple and no JVD General: Negative for tenderness Chest Wall inspection of chest normal and palpation of chest normal Chest: Negative for tenderness Resp normal respiratory effort and clear to auscultation bilaterally Effort and Inspection: Negative for respiratory distress or pain with movement Auscultation: Negative for rhonchi, wheezes or diminished lung sounds Cardio regular rate, regular rhythm, S1 normal heart sound, S2 normal heart sound and no murmurs Peripheral Pulses: pulses 2+ throughout GI normal to inspection, nondistended, normoactive bowel sounds, soft to palpation, non-distended and no masses GI Narrative: Patient with mild diffuse tenderness palpation over the epigastric region as well as the right upper quadrant. There are some mild guarding. There is no rebound, rigidity, or peritoneal signs Back/Spine no CVA tenderness and no thoracic nor lumbar tenderness Extremity normal to inspection General Extremety ED: Negative for edema General Extremity: Negative for edema Neuro oriented x3, CN's II-XII intact bilaterally, no sensory deficits noted and gait normal Sensorium / Orientation: awake, alert, oriented to person, oriented to place and oriented to time Motor Exam: strength 5/5 throughout and strength abnormal Psych mental status grossly normal Skin no rashes or lesions noted and no wounds MDM MDM MDM Narrative Medical decision making narrative: Patient presents to the emergency department abdominal pain vomiting related to heavy night of drinking 3 nights ago. Initially she had bright red blood in her emesis that has cleared up. In the differential would be alcoholic gastritis versus Glenna-Robertson tear. Patient has not had a bowel movement in 4 days and entertain possibility of a bowel obstruction. Patient also a chronic marijuana user and also entertain possibility of cannabis hyperemesis as well as pancreatitis. IV line established. CBC with differential obtained showed a white count of 23.5 with hemoglobin of 15.4 and platelet count of 279. Chemistries unremarkable other than a slightly depressed potassium at 3.0. BUN was 19 and creatinine 0.99. LFTs obtained were normal other than she had a slightly elevated bilirubin of 2.2. hCG was negative. Urinalysis normal. CT scan of the abdomen pelvis with IV contrast essentially unremarkable. Patient did not require anything for emesis. I did give her Protonix initially 80 mg IV bolus. At this point I suspect she may have had alcohol induced vomiting as well as a Glenna-Robertson tear. She does have an elevated WBC count which seems to be elevated over the last year and as recently as January of this year her WBC count was 21,000. Etiology of this is unclear. I will refer her to primary care physician for follow-up to have repeat blood work and if does not resolve may need further evaluation by hematology. Patient understands this as well as her significant other who is with her. Lab Data Attestation: I reviewed the patient's lab results. Labs: Laboratory Results - last 24 hr 07/15/24 07/15/24 16:33 17:30 WBC 23.5 H RBC 5.19 Hgb 15.4 H Hct 44.1 MCV 85.0 MCH 29.7 MCHC 34.9 RDW Std Deviation 40.6 RDW Coeff of [place] 13.2 Plt Count 279 MPV 11.9 Immature Gran % (Auto) 0.700 Neut % (Auto) 74.6 H Lymph % (Auto) 17.8 L [place] % (Auto) 6.3 Eos % (Auto) 0.2 Baso % (Auto) 0.4 Absolute Neuts (auto) 17.5 H Absolute Lymphs (auto) 4.18 Nucleated RBC % 0 Sodium 136 Potassium 3.0 L Chloride 101 Carbon Dioxide 29.0 Anion Gap 6 BUN 19 H Creatinine 0.99 Estim Creat Clear Calc 94.64 Est GFR (MDRD) Af Amer 84 Est GFR (MDRD) Non-Af 70 BUN/Creatinine Ratio 19.3 Glucose 119 H Lactic Acid 1.2 Calcium 10.9 H Total Bilirubin 2.20 H AST 31 ALT 47 Alkaline Phosphatase 56 Total Protein 8.2 Albumin 4.4 Globulin 3.8 Albumin/Globulin Ratio 1.2 Lipase 43 Serum , Qual NEGATIVE Urine Color Yellow Urine Clarity Sl. Cloudy Urine pH 6.0 Ur Specific [place] 1.015 Urine Protein 30 H Urine Glucose (UA) Normal Urine Ketones 50 H Urine Occult Blood 150 H Urine Nitrite Negative Urine Bilirubin 1 H Urine Urobilinogen 4 H Ur Leukocyte Esterase 25 H Urine RBC 5-10 SEEN Urine WBC 0-5 SEEN Ur Squamous Epith Cells 0-5 SEEN Amorphous Sediment 1+ URATE Urine Bacteria 0 SEEN Urine Mucus 0 SEEN Radiography Diagnostic Testing: Clinical Impression(s) from Imaging Studies Abdomen/Pelvis CT 07/15/24 16:29 IMPRESSION: Minor diverticular changes of the colon without evidence for acute diverticulitis. No evidence for small bowel obstruction or other acute abnormality status post cholecystectomy Electronically Signed: Braden Golden MD at 18:39 EDT , Discharge Plan Triage Chief Complaint: Nausea/Vomiting ED Provider: Oliver Marley Dx/Rx/DC Orders Clinical Impression: Vomiting, Abdominal pain, Leukocytosis Instructions: ED Abdominal Pain Unkn Cause Fem, ED Vomiting (Adult) Prescriptions: New ondansetron 4 mg tablet,disintegrating 4 mg PO Q8H PRN PRN (Reason: Nausea) Qty: 10 0RF lansoprazole [Prevacid] 30 mg capsule,delayed release(DR/EC) 30 mg PO DAILY Qty: 14 0RF No Action metformin 1,000 mg Tablet 1,000 mg PO BID progesterone micronized 200 mg capsule 200 mg PO QHS propranolol 80 mg capsule,extended release 24 hr 20 mg PO BID PRN (Reason: anxiety) Rx Instructions: half a tablet to 2 tablets up to twice a day duloxetine [Cymbalta] 30 mg capsule,delayed release(DR/EC) 30 mg PO DAILY Rx Instructions: one capsule for 14 days and then increase to 2capsule promethazine 25 mg tablet 25 mg PO TID PRN (Reason: nausea and vomiting) 7 Days Qty: 21 0RF oxycodone-acetaminophen [Percocet] 5-325 mg tablet 1 tab PO Q6H PRN (Reason: pain) 3 Days Qty: 12 0RF Primary Care Provider: Care Physician,No Primary Referrals: Mario Mills MD [Med Staff - Active Staff] - 5-7 Days Care Physician,No Primary [Primary Care Provider] - Print Language: Kinyarwanda Disposition Disposition: Home, Self Care
[2024-07-15] MEDS: 0.9% Normal Saline (1000mL) 1,000 ML 999 ML IV (16:39)
[2024-07-15 16:53] LABS: Absolute Lymphocyte Count 4.18 X10^3/uL (0.83-4.51); Absolute Neutrophil Count 17.5 X10^3/uL (2.0-7.7); Basophil# 0.09 X10^3/uL; Basophil% 0.4 % (0-1); Eosinophil# 0.05 X10^3/uL; Eosinophils% 0.2 % (0-5); Hematocrit 44.1 % (37-47); Hemoglobin 15.4 g/dL (12.0-15.0); Lymphocyte # 4.18 X10^3/ul (0.83-4.51); Lymphocyte % 17.8 % (19-41); Mean Corp Hgb Conc 34.9 g/dL (32-36); Mean Corpuscular Hgb 29.7 pg (27.0-32.0); Mean Platelet Vol. 11.9 fl (6.2-12.0); Monocyte# 1.49 X10^3/uL; Monocyte% 6.3 % (0-10); NRBC Flagged by Analyzer 0 % (0-5); Neutrophil % 74.6 % (47-70); Platelet Count 279 K/mm3 (150-450); RBC Distribution Width CV 13.2 % (11.6-14.6); RBC Distribution Width SD 40.6 fl (35.1-43.9); Red Blood Count 5.19 M/mm3 (4.2-5.4); White Blood Count 23.5 K/mm3 (4.4-11.0)
[2024-07-15 17:05] LABS: ALB/GLOB Ratio 1.2 RATIO (0.9-2.4); AST(SGOT) 31 U/L (15-37); Alanine Aminotransfer ALT/SGPT 47 U/L (13-56); Albumin, Serum 4.4 g/dL (3.2-5.0); Alkaline Phosphatase 56 U/L (45-117); Anion Gap 6 (5-15); BUN 19 mg/dL (7-18); BUN/Creat Ratio 19.3 RATIO (10-20); Calcium,Total 10.9 mg/dL (8.5-10.1); Chloride 101 mmol/L (98-107); Creatinine, Serum 0.99 mg/dL (0.55-1.02); EST Glomerular Filtration Rate 70 mL/min (>60); Est Glom Filt Rate - Afr Amer 84 mL/min (>60); Estimated Creatinine Clearance 94.64 ml/min; Globulin 3.8 g/dL (2.2-4.2); Glucose 119 mg/dL (74-106); Lipase 43 U/L (13-75); Protein, Total 8.2 g/dL (6.4-8.2); Sodium Level 136 mmol/L (136-145)
[2024-07-15 17:07] LABS: Internal QC Validated? YES +Cl - CLEAR BKGD; Pregnancy, Serum, hCG Quali. NEGATIVE Negative
[2024-07-15 17:15] VITALS: BP 112/64; PULSE 63
[2024-07-15 17:30] LABS: Lactic Acid 1.2 mmol/L (0.4-1.9)
[2024-07-15 17:42] LABS: Bacteria 0 SEEN /hpf (None Seen); Mucous, Urine 0 SEEN /hpf (<or=2+)
[2024-07-15 17:48] LABS: Color, Urine Yellow (Yellow); Glucose, Dipstick Normal (Normal); Ketone-Dipstick 50 mg/dl (Negative); Leukocyte Esterase-Dipstick 25 /ul (Negative); Nitrite-Dipstick Negative (Negative); Occult Blood-Urine 150 /ul (Negative); Protein-Dipstick 30 mg/dl (Negative); Specific Gravity, Urine 1.015 (1.002-1.030); Urine Clarity Sl. Cloudy (Clear); Urine Urobilinogen 4 mg/dl (Normal)
[2024-07-15 17:51] LABS: Urine Bilirubin Dipstick 1 mg/dL (Negative)
[2024-07-15] MEDS: Pantoprazole Sodium 80 MG in 0.9% Normal Saline (50mL Bag) 15 ML 420 MG IV BOLUS (17:55)
[2024-07-15 18:29] LABS: Red Blood Cells-Urine 5-10 SEEN /hpf (0-5); Squamous Epithelial Cells - UA 0-5 SEEN /hpf (5-10); White Blood Cells 0-5 SEEN /hpf (0-5)
[2024-07-15 18:30] LABS: Amorphous Sediment 1+ URATE
[2024-07-15] MEDS: Potassium Chloride Oral Tablet 20 MEQ 40 MEQ PO (18:57)
[2024-07-15 19:00] VITALS: BP 143/125; PULSE 56; O2SAT 97
[2024-07-15] MEDS: Ondansetron 4 MG/2 ML Vial IV (19:33)
[2024-07-15 19:34] VITALS: BP 143/125; PULSE 56; RESP 16; TEMP 36.5; O2SAT 95
== END 2024-07-15 19:37 | disposition home or self-care (01) ==
PROVIDERS: Emergency Provider Emergency Medicine; Visit Provider Emergency Medicine
DX: R11.2 Nausea with vomiting, unspecified (principal); D72.829 Elevated white blood cell count, unspecified; E28.2 Polycystic ovarian syndrome; R10.9 Unspecified abdominal pain; F17.220 Nicotine dependence, chewing tobacco, uncomplicated; Z79.82 Long term (current) use of aspirin; Z79.899 Other long term (current) drug therapy; Z90.49 Acquired absence of other specified parts of digestive tract
CPT/HCPCS: 74177; 80053; 81001; 83605; 83690; 84703; 85025; 96361; 96374; 96375; 99282; J7030; Q9967; A4216; J2405; J3490

== ENCOUNTER 2024-09-30 16:47 | Emergency (ER) | payer MEDICAID, SELFPAY ==
[2024-09-30 16:48] VITALS: BP 131/95; PULSE 75; RESP 16; TEMP 36.8; O2SAT 99; BMI 32.0
--- NOTE | 2024-09-30 19:20 | ED.RN ---
PT STATES I HAVE A PANIC DISORDER AND I AM OUT OF MY MEDICATION PATIENT STATE I HAVE BEEN IN PANIC MODE SINCE 0700 AND IS NAUSEOUS/VOMITING, SOB, AND C/O CHEST PAIN. CHEST PAIN STARTED AT THE SAME TIME PANIC ATTACK. DOES NOT RADIATE
[2024-09-30] MEDS: LORazepam 2 MG/ML Syringe 0.5 MG IV (19:50)
[2024-09-30] MEDS: 0.9% Normal Saline (1000mL) 1,000 ML 1000 ML IV (19:51)
[2024-09-30] MEDS: Ondansetron 4 MG/2 ML Vial IV (19:51)
[2024-09-30] MEDS: Famotidine 200 MG/20 ML MDV 20 MG in 0.9% Normal Saline (Pres. free 8 ML 300 MG IV (20:06)
[2024-09-30] MEDS: DiphenhydrAMINE 25 MG, ChlorproMAZINE IM 50 MG in 0.9% Normal Saline (250mL Bag) 250 ML 252.5 MG IV (20:06)
[2024-09-30 20:24] LABS: hCG Titer Quant., Serum < 1 mIU/mL (1-3)
[2024-09-30 20:28] LABS: Anion Gap 10 (5-15); BUN 9 mg/dL (7-18); BUN/Creat Ratio 8.9 RATIO (10-20); Calcium,Total 11.1 mg/dL (8.5-10.1); Chloride 109 mmol/L (98-107); Creatinine, Serum 1.01 mg/dL (0.55-1.02); EST Glomerular Filtration Rate 68 mL/min (>60); Est Glom Filt Rate - Afr Amer 82 mL/min (>60); Estimated Creatinine Clearance 91.22 ml/min; Glucose 167 mg/dL (74-106); Potassium 3.7 mmol/L (3.5-5.1); Sodium Level 140 mmol/L (136-145)
[2024-09-30 20:48] VITALS: BP 125/74; PULSE 85; RESP 16; O2SAT 98
--- NOTE | 2024-09-30 21:03 | EDS_ITS ---
HPI History of Present Illness Chief Complaint: Anxiety Detail of Chief Complaint: Patient believes she is having anxiety reaction with nausea vomiting. Informant: patient Onset/Context/Timing Onset: Today (Earlier this morning.) Context: Onset with activity, Gradual Onset and Sudden Onset Timing: Continuous and Waxes and wanes Quality: Colicky diffuse pain greater upper quadrants with nausea and vomiting Location: GI and patient reports being anxious. Current Severity: Severe Maximum Severity: Severe Worsened by: Patient believes is due to her anxiety. Relieved by: Nothing Associated Symptoms Associated Symptoms: Thirst, dry mouth, decreased urine output and lightheadedness Narrative Narrative: Patient is a 29-year-old woman. She has polycystic ovarian syndrome. She is uncertain when her last menses was. She is sexually active. She denies fever, chills night sweats. Denies headache, visual, ocular auditory symptoms. She denies cardiac or respiratory symptoms. She denies intolerance to greasy or fried foods. She denies diarrhea. She denies black or maroon-colored stool. She has not noted blood in her emesis or the emesis being coffee-ground in appearance. Patient does endorse daily marijuana use. She also has history of cyclic vomiting. Prior similar symptoms: Yes Recent Illness/Hospitalization: Yes (July 15 seen for abdominal pain by Dr. Mendez. January 2024 for dehydration ) [facility] Medical History Anxiety disorder Cannabis use disorder Cyclic vomiting syndrome PCOS (polycystic ovarian syndrome) Home Medications ?Medication ?Instructions ?Recorded ?Last Taken ?Type metformin 1,000 mg tablet 1,000 mg PO BID 03/28/23 Unknown History duloxetine 30 mg capsule,delayed 30 mg PO DAILY 02/23/24 Unknown History release (Cymbalta) oxycodone-acetaminophen 5 mg-325 1 tab PO Q6H PRN pain 3 days #12 02/23/24 Unknown Rx mg tablet (Percocet) tabs progesterone micronized 200 mg 200 mg PO QHS 02/23/24 Unknown History capsule promethazine 25 mg tablet 25 mg PO TID PRN nausea and 02/23/24 Unknown Rx vomiting 7 days #21 tabs propranolol 80 mg capsule,24 20 mg PO BID PRN anxiety 02/23/24 Unknown History hr,extended release lansoprazole 30 mg capsule,delayed 30 mg PO DAILY #14 caps 10/14/24 Unknown Rx release (Prevacid) ondansetron 4 mg disintegrating 4 mg PO Q8H PRN PRN Nausea #10 tabs 07/15/24 Unknown Rx tablet ondansetron 4 mg disintegrating 4 mg PO Q8H PRN PRN Nausea #10 tabs 09/30/24 Unknown Rx tablet Allergy/AdvReac Type Severity Reaction Status Date / Time No Known Allergies Allergy Verified 09/30/24 16:49 Family History Mother Cancer skin Surgical History right salpingectomy FH: cholecystectomy Social History number of children: 0 current occupational status: employed current occupation: [employer] Smoking Status: Never smoker Smokeless tobacco user: chewing tobacco alcohol intake: current alcohol intake frequency: holidays/special occasions only substance use type: marijuana seatbelt use: always do you feel safe at home: Yes additional social history: [employer] [facility] ED Constitutional Constitutional ED: Denies chills, fever(s), subjective or sweats Eyes Eyes: Denies blurry vision or change in vision ENT ENT ED: Denies ear pain or rhinorrhea Cardiovascular Cardiovascular: Denies chest pain or palpitations Respiratory/Chest Respiratory/Chest: Denies cough, dyspnea or dyspnea on exertion Gastrointestinal Gastrointestinal: Reports abdominal pain, nausea and vomiting; Denies constipation, diarrhea or melena Genitourinary Genitourinary ED: Denies dysuria, hematuria or urinary frequency Musculoskeletal Musculoskeletal: Denies arthralgias, back pain or myalgias Integumentary Denies rash Neurologic Neurologic: Reports weakness; Denies headache(s) or paresthesias Hematologic/Lymphatic Hematologic/Lymphatic: Reports systems reviewed and no addt'l complaints, except as documented EXAM Physical Exam Const Vital Signs: 09/30/24 16:48 09/30/24 20:48 Temperature 98.2 F Temperature Source Oral Pulse Rate 75 85 Respiratory Rate 16 16 Blood Pressure 131/95 H 125/74 H Blood Pressure Mean 107 91 Pulse Ox 99 98 Oxygen Delivery Method Room Air Room Air Positive well nourished and well developed Constitutional Narrative: Patient is rocking in the hallway. She is sitting in a chair. Patient became agitated when I attempted to examine her abdomen. Vital signs are remarkable for blood pressure 131/95. General Appearance ED: well developed and pallor; Negative for cyanotic, diaphoretic or NAD HEENT Reports dry mucous membranes HEENT Narrative: Head is atraumatic normocephalic. Ears normal. Nares patent. Posterior pharynx is normal. Mouth ED: Yes dry mucous membranes Mouth: dry mucous membranes Eyes PERRL and EOMs intact bilaterally General Eye ED: Negative for pale conjunctiva or scleral icterus Neck no lymphadenopathy, supple and no JVD General: Negative for tenderness Chest Wall inspection of chest normal and palpation of chest normal Resp normal respiratory effort and clear to auscultation bilaterally Cardio regular rate, regular rhythm, S1 normal heart sound, S2 normal heart sound and no murmurs GI normal to inspection, nondistended, normoactive bowel sounds, non-distended and no masses; Negative for non-tender or hepatosplenomegaly Auscultation: hypoactive bowel sounds Palpation: soft and tender other (Diffusely greater upper quadrant) Back/Spine no CVA tenderness Extremity normal to inspection General Extremety ED: Negative for edema or tenderness General Extremity: Negative for edema Neuro oriented x3 and CN's II-XII intact bilaterally Sensorium / Orientation: alert Psych Psych Narrative: Patient is agitated. She is rocking in the hallway on a chair. Skin no rashes or lesions noted, no wounds and skin turgor normal General Skin Exam: pallor; Negative for jaundice MDM MDM MDM Narrative Medical decision making narrative: Differential diagnosis is anxiety disorder, cannabis hyperemesis syndrome, cyclic vomiting. Patient does not have symptoms consistent with cholelithiasis or cholecystitis. Will obtain BMP to assess electrolytes, CO2 anion gap and renal function and light of the amount of vomiting she has had. She was treated with the cyclic vomiting order set. Since she is in the hallway did not have nurse apply capsaicin cream/ointment. Lab Data Attestation: I reviewed the patient's lab results. Lab results narrative: Electrolyte panel was elevated chloride of 109. CO2 anion gap are normal. BUN and creatinine are normal. Blood sugar slightly over 167. She does have type 2 diabetes on metformin. test was not detected. Labs: Laboratory Results - last 24 hr 09/30/24 19:45 Sodium 140 Potassium 3.7 Chloride 109 H Carbon Dioxide 22.0 Anion Gap 10 BUN 9 Creatinine 1.01 Estim Creat Clear Calc 91.22 Est GFR (MDRD) Af Amer 82 Est GFR (MDRD) Non-Af 68 BUN/Creatinine Ratio 8.9 L Glucose 167 H Calcium 11.1 H HCG, Quant < 1 Treatment and Re-Evaluation :: Patient was reassessed at approximately 2042. She states she felt better. She is no longer rocking back and forth on the chair. She has not vomited. She was reassessed at 2215. Patient states she like to go home. She no longer feels anxious. She Noller has nausea and vomiting. Discharge Plan Triage Chief Complaint: Anxiety ED Provider: Christos Esparza Dx/Rx/DC Orders Clinical Impression: Intractable nausea and vomiting, Cannabis use disorder, Anxiety disorder, Secondary amenorrhea, Acute generalized abdominal pain, Polycystic ovarian disease, BMI 32.0-32.9,adult, Acute dehydration Instructions: ED Vomiting (Adult) Prescriptions: New ondansetron 4 mg tablet,disintegrating 4 mg PO Q8H PRN PRN (Reason: Nausea) Qty: 10 0RF No Action metformin 1,000 mg Tablet 1,000 mg PO BID progesterone micronized 200 mg capsule 200 mg PO QHS propranolol 80 mg capsule,extended release 24 hr 20 mg PO BID PRN (Reason: anxiety) Rx Instructions: half a tablet to 2 tablets up to twice a day duloxetine [Cymbalta] 30 mg capsule,delayed release(DR/EC) 30 mg PO DAILY Rx Instructions: one capsule for 14 days and then increase to 2capsule promethazine 25 mg tablet 25 mg PO TID PRN (Reason: nausea and vomiting) 7 Days Qty: 21 0RF oxycodone-acetaminophen [Percocet] 5-325 mg tablet 1 tab PO Q6H PRN (Reason: pain) 3 Days Qty: 12 0RF ondansetron 4 mg tablet,disintegrating 4 mg PO Q8H PRN PRN (Reason: Nausea) Qty: 10 0RF lansoprazole [Prevacid] 30 mg capsule,delayed release(DR/EC) 30 mg PO DAILY Qty: 14 0RF Primary Care Provider: Joann Matamoros NP Referrals: Joann Matamoros NP, [facility] [Primary Care Provider] - As Needed Print Language: Icelandic Disposition Disposition: Home, Self Care
--- NOTE | 2024-09-30 22:50 | ED.RN ---
THIS RN WENT TO DISCHARGE PATIENT. PATIENT NO LONGER IN ROOM. ANA VALDOVINOS SAW PATIENT LEAVE, BUT WAS UNABLE TO VERIFY IF PATIENT HAD IV REMOVED. THIS RN CALLED PATIENT AND INFORMED PATIENT SHE WOULD NEED TO RETURN TO ER TO VERIFY IV HAS BEEN REMOVED. PT SAID ARE YOU KIDDING ME AND PHONE LINE WAS DISCONNECTED. THIS RN ATTEMPTED TO REACH PATIENT AGAIN VIA PHONE BUT CALL WAS SENT TO STRAIGHT TO [facility]. THIS RN CONTACTED DISPATCH AND OFFICER WILL BE SENT OUT TO RESIDENCE TO VERIFY THAT PATIENT DID REMOVE IV.
--- NOTE | 2024-09-30 23:34 | ED.RN ---
Alejandro Mcdowell with [facility] calls stating after multiple attempts he was unable to make contact with the patient but spoke to patients who stated he helped her take out the IV when she got home.
== END 2024-09-30 22:54 | disposition home or self-care (01) ==
PROVIDERS: Emergency Provider Emergency Medicine; PCP Nurse Practitioner Family; Visit Provider Emergency Medicine
DX: R11.2 Nausea with vomiting, unspecified (principal); E11.65 Type 2 diabetes mellitus with hyperglycemia; E86.0 Dehydration; E28.2 Polycystic ovarian syndrome; R10.84 Generalized abdominal pain; R45.1 Restlessness and agitation; F12.90 Cannabis use, unspecified, uncomplicated; F41.9 Anxiety disorder, unspecified; F17.220 Nicotine dependence, chewing tobacco, uncomplicated; Z79.84 Long term (current) use of oral hypoglycemic drugs; Z79.899 Other long term (current) drug therapy
CPT/HCPCS: 80048; 84702; 96365; 96375; 99282; A4216; J2405

== ENCOUNTER 2025-02-06 09:37 | Emergency (ER) | payer MEDICAID, SELFPAY ==
[2025-02-06 09:37] VITALS: BP 141/76; PULSE 115; PULSE 122; RESP 22; TEMP 36.1; O2SAT 98; BMI 29.4
--- NOTE | 2025-02-06 09:59 | EX.ED.DYSGE1 ---
HPI History of Present Illness Chief Complaint: Anxiety Narrative Narrative: 30-year-old female past medical history of anxiety disorder for which she takes Effexor and Abilify given to her by a psychiatrist presents with panic attack that started around 530 this morning, approximately 4-1/2 hours ago. She states that she feels overwhelmed and started feeling anxious. Her last panic attack was within the last year. She states she had to come to the emergency department for it previously. She states that it is associated with nausea and vomiting. However, this is similar to her previous panic attacks. She feels heart palpitations as well. She states she wants her panic to stop. [facility] Medical History Anxiety disorder Cannabis use disorder Cyclic vomiting syndrome PCOS (polycystic ovarian syndrome) Home Medications ?Medication ?Instructions ?Recorded ?Last Taken ?Type metformin 1,000 mg tablet 1,000 mg PO BID 03/28/23 Unknown History duloxetine 30 mg capsule,delayed 30 mg PO DAILY 02/23/24 Unknown History release (Cymbalta) oxycodone-acetaminophen 5 mg-325 1 tab PO Q6H PRN pain 3 days #12 02/23/24 Unknown Rx mg tablet (Percocet) tabs progesterone micronized 200 mg 200 mg PO QHS 02/23/24 Unknown History capsule promethazine 25 mg tablet 25 mg PO TID PRN nausea and 02/23/24 Unknown Rx vomiting 7 days #21 tabs propranolol 80 mg capsule,24 20 mg PO BID PRN anxiety 02/23/24 Unknown History hr,extended release lansoprazole 30 mg capsule,delayed 30 mg PO DAILY #14 caps 07/15/24 Unknown Rx release (Prevacid) ondansetron 4 mg disintegrating 4 mg PO Q8H PRN PRN Nausea #10 tabs 07/15/24 Unknown Rx tablet ondansetron 4 mg disintegrating 4 mg PO Q8H PRN PRN Nausea #10 tabs 09/30/24 Unknown Rx tablet Allergy/AdvReac Type Severity Reaction Status Date / Time No Known Allergies Allergy Verified 02/06/25 09:39 Family History Mother Cancer skin Surgical History right salpingectomy FH: cholecystectomy Social History housing: apartment number of children: 0 current occupational status: employed current occupation: [employer] Smoking Status: Never smoker Smokeless tobacco user: chewing tobacco alcohol intake: current alcohol intake frequency: holidays/special occasions only substance use type: marijuana seatbelt use: always do you feel safe at home: Yes additional social history: [employer] ED ROS Narrative Positive anxiety. Positive palpitations. Feels heart racing. Denies chest pain or shortness of breath. Positive nausea and vomiting which is associated with her panic attack. No exacerbating or alleviating factors. EXAM Physical Exam Narrative Exam Narrative: Afebrile. Vital signs noted. Nontoxic-appearing. Cardiovascular examination reveals mild tachycardia. Lungs clear to auscultation bilaterally. Abdomen soft and nontender without guarding or rebound. Neurological examination nonfocal nonlateralizing. Positive anxiety on psychiatric examination, no suicidal ideation. Const Vital Signs: 02/06/25 09:37 02/06/25 09:37 02/06/25 11:52 Temperature 97 F L Temperature Source Temporal Pulse Rate 122 H 115 H 119 H Respiratory Rate 22 H 20 H Blood Pressure 141/76 H 140/91 H Blood Pressure Mean 97 107 Pulse Ox 98 Oxygen Delivery Method Room Air 02/06/25 13:00 Temperature Temperature Source Pulse Rate 89 Respiratory Rate 14 Blood Pressure 141/76 H Blood Pressure Mean 97 Pulse Ox 98 Oxygen Delivery Method Room Air MDM MDM MDM Narrative Medical decision making narrative: I reviewed the patient's prior records. While the differential diagnosis does include nausea and vomiting from cannabis use disorder and she has a history of cyclic vomiting, I reviewed her prior ED visit and she did have medical clearance labs drawn previously but did receive Ativan for anxiety. Initially, in discussion with the patient she will be given Ativan 1 mg intramuscularly and reassessed. Should she become suicidal or still have nausea and vomiting, I do feel that laboratory work would be appropriate at that time, but she will be reassessed after Ativan to see if this breaks her anxiety. Upon repeat examination, she states her palpitation and anxiety has improved but she is still nauseated and has abdominal pain. I do not feel that she requires CT imaging currently. I did review her laboratory work she has a leukocytosis of 14.8 but when compared to prior it is much lower than previous. She seems to have a chronic leukocytosis. Hemoglobin 13.5 with hematocrit 40.4. Platelet count normal at 324. Sodium normal at 141 with potassium 4.7. Normal anion gap of 11. BUN normal at 8 with creatinine 0.82, no dehydration. LFTs are grossly unremarkable. Lipase normal at 20. Serum is negative. I did obtain ethyl alcohol level in the event that she would require evaluation by the crisis counselor but she denies any suicidal ideation. As her anxiety has improvded I feel she can be discharged to follow-up. I offered to write her something for nausea, but she declined and would like to be discharged and is motivated for discharge. She can follow-up with her primary care provider and her psychiatrist as needed. Return instructions to the emergency department were reviewed. Disposition is discharged home in stable condition. History & Record Review Discussion w/independent historian: Patient Lab Data Attestation: I reviewed the patient's lab results. Labs: Laboratory Results - last 24 hr 02/06/25 11:44 WBC 14.8 H RBC 4.71 Hgb 13.5 Hct 40.4 MCV 85.8 MCH 28.7 MCHC 33.4 RDW Std Deviation 41.2 RDW Coeff of Jennifer 13.2 Plt Count 324 MPV 11.3 Immature Gran % (Auto) 0.800 Neut % (Auto) 82.8 H Lymph % (Auto) 13.9 L [place] % (Auto) 2.3 Eos % (Auto) 0.0 Baso % (Auto) 0.2 Absolute Neuts (auto) 12.2 H Absolute Lymphs (auto) 2.06 Nucleated RBC % 0 Sodium 141 Potassium 4.7 Chloride 105 Carbon Dioxide 25.0 Anion Gap 11 BUN 8 Creatinine 0.82 Estim Creat Clear Calc 106.76 Est GFR (MDRD) Non-Af 97 BUN/Creatinine Ratio 9.7 L Glucose 177 H Calcium 11.2 H Total Bilirubin 0.41 AST 27 ALT 23 Alkaline Phosphatase 65 Total Protein 7.9 Albumin 4.7 Globulin 3.2 Albumin/Globulin Ratio 1.5 Lipase 20 Serum , Qual NEGATIVE Ethyl Alcohol < 10.1 Discharge Plan Triage Chief Complaint: Anxiety ED Provider: Juan Tapia Dx/Rx/DC Orders Clinical Impression: Anxiety disorder, Panic attack, Abdominal pain Instructions: ED Abdominal Pain Unkn Cause Fem, ED Panic Attack Prescriptions: No Action metformin 1,000 mg Tablet 1,000 mg PO BID ondansetron 4 mg tablet,disintegrating 4 mg PO Q8H PRN PRN (Reason: Nausea) Qty: 10 0RF progesterone micronized 200 mg capsule 200 mg PO QHS propranolol 80 mg capsule,extended release 24 hr 20 mg PO BID PRN (Reason: anxiety) Rx Instructions: half a tablet to 2 tablets up to twice a day duloxetine [Cymbalta] 30 mg capsule,delayed release(DR/EC) 30 mg PO DAILY Rx Instructions: one capsule for 14 days and then increase to 2capsule promethazine 25 mg tablet 25 mg PO TID PRN (Reason: nausea and vomiting) 7 Days Qty: 21 0RF oxycodone-acetaminophen [Percocet] 5-325 mg tablet 1 tab PO Q6H PRN (Reason: pain) 3 Days Qty: 12 0RF ondansetron 4 mg tablet,disintegrating 4 mg PO Q8H PRN PRN (Reason: Nausea) Qty: 10 0RF lansoprazole [Prevacid] 30 mg capsule,delayed release(DR/EC) 30 mg PO DAILY Qty: 14 0RF Primary Care Provider: Joann Matamoros NP Referrals: Joann Matamoros NP, [employer] [employer] [facility] [Primary Care Provider] - 3-5 Days if not improving Activity Restrictions/Additional Instructions: Follow-up with your psychiatrist as well. Return to the emergency department with new or worsening symptoms. Print Language: Slovak Disposition Disposition: Home, Self Care
[2025-02-06] MEDS: Lorazepam 2 MG/ML WCH Syringe 1 MG IM (10:24)
[2025-02-06] MEDS: Ondansetron 4 MG/2 ML Vial IV (11:50)
[2025-02-06] MEDS: 0.9% Normal Saline (1000mL) 1,000 ML 999 ML IV (11:50)
[2025-02-06 11:52] VITALS: BP 140/91; PULSE 119; RESP 20
[2025-02-06 12:03] LABS: Absolute Lymphocyte Count 2.06 X10^3/uL (0.83-4.51); Absolute Neutrophil Count 12.2 X10^3/uL (2.0-7.7); Basophil# 0.03 X10^3/uL; Basophil% 0.2 % (0-1); Hematocrit 40.4 % (37-47); Hemoglobin 13.5 g/dL (12.0-15.0); Lymphocyte # 2.06 X10^3/ul (0.83-4.51); Lymphocyte % 13.9 % (19-41); Mean Corp Hgb Conc 33.4 g/dL (32-36); Mean Corpuscular Hgb 28.7 pg (27.0-32.0); Mean Corpuscular Volume 85.8 fL (81-99); Mean Platelet Vol. 11.3 fl (6.2-12.0); Monocyte# 0.34 X10^3/uL; Monocyte% 2.3 % (0-10); NRBC Flagged by Analyzer 0 % (0-5); Neutrophil # 12.24 X10^3/uL (2.7-7.7); Neutrophil % 82.8 % (47-70); Platelet Count 324 K/mm3 (150-450); RBC Distribution Width CV 13.2 % (11.6-14.6); RBC Distribution Width SD 41.2 fl (35.1-43.9); Red Blood Count 4.71 M/mm3 (4.2-5.4); White Blood Count 14.8 K/mm3 (4.4-11.0)
[2025-02-06 12:29] LABS: Internal QC Validated? YES +Cl - CLEAR BKGD; Pregnancy, Serum, hCG Quali. NEGATIVE Negative
[2025-02-06 12:30] LABS: ALB/GLOB Ratio 1.5 RATIO (0.9-2.4); AST(SGOT) 27 U/L (<=31); Alanine Aminotransfer ALT/SGPT 23 U/L (<=34); Albumin, Serum 4.7 g/dL (3.5-5.0); Alkaline Phosphatase 65 U/L (35-104); Anion Gap 11 (5-15); BUN 8 mg/dL (4-19); BUN/Creat Ratio 9.7 RATIO (10-20); Calcium,Total 11.2 mg/dL (7.6-11.0); Chloride 105 mmol/L (98-108); Creatinine, Serum 0.82 mg/dL (0.70-1.20); EST Glomerular Filtration Rate 97 (>60); Estimated Creatinine Clearance 106.76 ml/min (50-250); Globulin 3.2 g/dL (2.2-4.2); Glucose 177 mg/dL (70-99); Lipase 20 U/L (13-75); Potassium 4.7 mmol/L (3.3-5.1); Protein, Total 7.9 g/dL (5.9-8.4); Sodium Level 141 mmol/L (133-145); Total Bilirubin 0.41 mg/dL (0.00-1.30)
[2025-02-06 12:38] LABS: Alcohol, Blood (Medical)-Serum < 10.1 mg/dL (<=10.0)
[2025-02-06 13:00] VITALS: BP 141/76; PULSE 89; RESP 14; O2SAT 98
[2025-02-06 14:17] LABS: Amphetamine Urine NEGATIVE (<1000 ng/mL); Barbiturate Urine NEGATIVE (< 200 ng/mL); Benzodiazepine Urine NEGATIVE (< 200 ng/mL); Buprenorphine Urine NEGATIVE (< 200 ng/mL); Cocaine Urine NEGATIVE (< 300 ng/mL); Fentanyl, Urine NEGATIVE; Methadone Urine NEGATIVE (< 300 ng/mL); Opiates Urine NEGATIVE (< 300 ng/mL); Oxycodone, Urine NEGATIVE (< 100 ng/mL); PCP Urine NEGATIVE (< 25 ng/mL); THC Urine PRESUMPTIVE POSITIVE (< 50 ng/mL)
[2025-02-06 15:24] VITALS: BP 127/62; PULSE 85; RESP 16; TEMP 36.8; O2SAT 97
== END 2025-02-06 15:31 | disposition home or self-care (01) ==
PROVIDERS: Emergency Provider Emergency Medicine; PCP Nurse Practitioner Family; Visit Provider Emergency Medicine
DX: F41.0 Panic disorder [episodic paroxysmal anxiety] (principal); R10.9 Unspecified abdominal pain; R11.2 Nausea with vomiting, unspecified; F17.220 Nicotine dependence, chewing tobacco, uncomplicated; Z79.84 Long term (current) use of oral hypoglycemic drugs; Z79.899 Other long term (current) drug therapy
CPT/HCPCS: 80053; 80307; 82077; 83690; 84703; 85025; 96361; 96374; 96375; 99283; A4216; J2405

== ENCOUNTER 2025-03-14 19:37 | Emergency (ER) | payer MEDICAID, SELFPAY ==
[2025-03-14 19:38] VITALS: BP 140/74; PULSE 99; RESP 16; TEMP 36.9; O2SAT 100; BMI 28.7
--- NOTE | 2025-03-14 20:26 | EX.ED.DYSGE1 ---
HPI History of Present Illness Chief Complaint: Anxiety Informant: patient Narrative Narrative: Increased anxiety today with vomiting x 6. Bile no hematemesis. No diarrhea. States going through her divorce. Denies suicidal homicidal ideations. Cyclic vomiting history with marijuana use last use this morning. She reports she quit using 1 time for 3 years still had symptoms therefore does not believe it is from marijuana. She reports hot showers does help her. She has been here previously for similar symptoms treated for symptoms with improvement. Last menstrual period a week ago. Denies any allergies. Prior similar symptoms: Yes PFSH PFSH Medical History Anxiety Anxiety disorder Cannabis use disorder Cyclic vomiting syndrome PCOS (polycystic ovarian syndrome) Home Medications ?Medication ?Instructions ?Recorded ?Last Taken ?Type metformin 1,000 mg tablet 1,000 mg PO BID 03/28/23 Unknown History duloxetine 30 mg capsule,delayed 30 mg PO DAILY 02/23/24 Unknown History release (Cymbalta) oxycodone-acetaminophen 5 mg-325 1 tab PO Q6H PRN pain 3 days #12 02/23/24 Unknown Rx mg tablet (Percocet) tabs progesterone micronized 200 mg 200 mg PO QHS 02/23/24 Unknown History capsule promethazine 25 mg tablet 25 mg PO TID PRN nausea and 02/23/24 Unknown Rx vomiting 7 days #21 tabs propranolol 80 mg capsule,24 20 mg PO BID PRN anxiety 02/23/24 Unknown History hr,extended release lansoprazole 30 mg capsule,delayed 30 mg PO DAILY #14 caps 07/15/24 Unknown Rx release (Prevacid) ondansetron 4 mg disintegrating 4 mg PO Q8H PRN PRN Nausea #10 tabs 07/15/24 Unknown Rx tablet ondansetron 4 mg disintegrating 4 mg PO Q8H PRN PRN Nausea #10 tabs 09/30/24 Unknown Rx tablet hydroxyzine pamoate 25 mg capsule 25 mg PO TID PRN PRN Anxiety #10 03/14/25 Unknown Rx CAPSULES ondansetron 4 mg disintegrating 4 mg PO Q8H PRN PRN Nausea #10 tabs 03/14/25 Unknown Rx tablet Allergy/AdvReac Type Severity Reaction Status Date / Time No Known Allergies Allergy Verified 03/14/25 19:40 Family History Mother Cancer skin Surgical History right salpingectomy FH: cholecystectomy Social History housing: apartment number of children: 0 current occupational status: employed current occupation: [employer] Smoking Status: Current every day smoker tobacco type: e-cigarettes Smokeless tobacco user: chewing tobacco alcohol intake: current alcohol intake frequency: holidays/special occasions only substance use type: marijuana seatbelt use: always do you feel safe at home: Yes additional social history: [employer] ROS ROS ED Constitutional Constitutional ED: Denies fever(s) Cardiovascular Cardiovascular: Denies chest pain Respiratory/Chest Respiratory/Chest: Denies cough Gastrointestinal Gastrointestinal: Reports vomiting; Denies abdominal pain or diarrhea Musculoskeletal Musculoskeletal: Denies none Integumentary Denies rash or wounds Neurologic Neurologic: Denies weakness Psychiatric Psychiatric: Reports anxiety; Denies suicidal ideation or suicidal thoughts EXAM Physical Exam Const Vital Signs: 03/14/25 19:38 03/14/25 21:01 03/14/25 22:25 Temperature 98.4 F 98.1 F Temperature Source Oral Pulse Rate 99 58 L 59 L Respiratory Rate 16 16 16 Blood Pressure 140/74 H 122/74 H 125/91 H Blood Pressure Mean 96 90 102 Pulse Ox 100 96 97 Oxygen Delivery Method Room Air Room Air Positive well nourished and well developed General Appearance ED: well developed and NAD HEENT Reports moist mucous membranes normocephalic and atraumatic Eyes General Eye ED: Yes normal appearance of both eyes Neck full ROM Chest Wall Chest: Negative for tenderness Resp normal respiratory effort and normal air movement Effort and Inspection: symmetric chest movement; Negative for respiratory distress Cardio regular rate, regular rhythm and no murmurs Peripheral Pulses: pulses 2+ throughout GI normal to inspection, nondistended, normoactive bowel sounds and non-tender Palpation: Negative for guarding or rebound tenderness present Extremity normal to inspection General Extremety ED: Negative for edema or tenderness General Extremity: Negative for edema Neuro oriented x3 and no sensory deficits noted Sensorium / Orientation: awake and alert Psych Psych Narrative: Denies suicidal or homicidal ideations. Skin no rashes or lesions noted and no wounds MDM MDM MDM Narrative Medical decision making narrative: Interventions / MDM: Differential diagnosis: Anxiety, cyclic vomiting, history of marijuana use Diagnosis considered but do not suspect: Denies suicidal or homicidal ideations. My EKG interpretation: N/A Imaging independently reviewed and interpreted by myself: N/A External documents reviewed: N/A Test considered but not ordered:N/A ED course: The patient declines capsaicin. She states the medicines would work. IV established cyclical vomiting order set Ativan Pepcid and Zofran fluids ordered. BMP and hCG. Will reevaluate. 2131: Electrolytes normal hCG negative. Reevaluation patient resting states symptoms are better. Will p.o. challenge. 2224: Patient tolerated p.o. challenge. She is out of her Zofran. This will be sent to her pharmacy. Hydroxyzine also sent for anxiety. Outpatient follow-up. All questions were answered. Re-evaluation: stable Disposition discussed with patient/family/significant other: Patient Case discussed with consulting clinician: N/A This note was generated with Me[employer] dictation software. It may contain incorrect words, spelling, and punctuation that were not noted in checking the note before signing. Lab Data Attestation: I reviewed the patient's lab results. Labs: Laboratory Results - last 24 hr 03/14/25 20:30 Sodium 140 Potassium 3.8 Chloride 103 Carbon Dioxide 25.3 Anion Gap 12 BUN 10 Creatinine 0.77 Estim Creat Clear Calc 112.39 Est GFR (MDRD) Non-Af 106 BUN/Creatinine Ratio 12.5 Glucose 147 H Calcium 11.1 H Serum , Qual NEGATIVE Discharge Plan Triage Chief Complaint: Anxiety Other Complaint: Nausea/Vomiting ED Provider: Andres Quiroga Dx/Rx/DC Orders Clinical Impression: Cyclic vomiting syndrome, Cannabis use disorder, Anxiety disorder Instructions: ED Cyclic Vomiting Syndrome, ED Anxiety Reaction Prescriptions: New hydroxyzine pamoate 25 mg capsule 25 mg PO TID PRN PRN (Reason: Anxiety) Qty: 10 0RF ondansetron 4 mg tablet,disintegrating 4 mg PO Q8H PRN PRN (Reason: Nausea) Qty: 10 0RF No Action metformin 1,000 mg Tablet 1,000 mg PO BID ondansetron 4 mg tablet,disintegrating 4 mg PO Q8H PRN PRN (Reason: Nausea) Qty: 10 0RF progesterone micronized 200 mg capsule 200 mg PO QHS propranolol 80 mg capsule,extended release 24 hr 20 mg PO BID PRN (Reason: anxiety) Rx Instructions: half a tablet to 2 tablets up to twice a day duloxetine [Cymbalta] 30 mg capsule,delayed release(DR/EC) 30 mg PO DAILY Rx Instructions: one capsule for 14 days and then increase to 2capsule promethazine 25 mg tablet 25 mg PO TID PRN (Reason: nausea and vomiting) 7 Days Qty: 21 0RF oxycodone-acetaminophen [Percocet] 5-325 mg tablet 1 tab PO Q6H PRN (Reason: pain) 3 Days Qty: 12 0RF ondansetron 4 mg tablet,disintegrating 4 mg PO Q8H PRN PRN (Reason: Nausea) Qty: 10 0RF lansoprazole [Prevacid] 30 mg capsule,delayed release(DR/EC) 30 mg PO DAILY Qty: 14 0RF Primary Care Provider: Joann Matamoros NP Referrals: Joann Matamoros NP, [employer] [Primary Care Provider] - 3-5 Days Activity Restrictions/Additional Instructions: test negative. Electrolytes normal. Continue oral fluids for hydration. Take medicines as prescribed. Follow-up with your doctor. Print Language: [place] Disposition Disposition: Home, Self Care Discharge Date/Time: 03/14/25 22:37
--- OUTSIDE RECORDS SUMMARY | 2025-03-14 20:30 | XMS RPT_ITS | CCD ---
Author Organization [facility] Care Team Providers Care Cabinet Installer Name Role Phone ANA Marshall RN, Joshua Jang Unavailable Unavailfranchesca Marshall RN RN, Joshua Jang Unavailable UnavailBASIM Denis Unavailable Unavailable BASIM PRINCE Unavailable Unavailable Veena BATISTA, Collette Hansen Unavailable [phone] Ry Adler MD Primary Care Provider [phone]PAOLA, Lesa C Primary Care Provider RYDER, LESA C Primary Care Unavailable GEMA SMALL Attending Unavailable MARIO MONIQUE Referring Unavailable TRILL, LESA C Primary Care Unavailable MARIO MONIQUE Attending Unavailable RY ADLER Primary Care Unavailable TRILL, LESA Katlyn Referring Unavailable TRILL, LESA C Primary Care Unavailable STACI GIVENS Attending Unavailable TRILL, LESA C Referring Unavailable TRILL, LESA C Primary Care Unavailable STACI GIVENS Attending Unavailable TRILL, LESA C Primary Care Unavailable Trill TIP PRINTER-C, Lesa Primary Care Provider Juan Tapia MD Emergency Provider Oliver Marley Attending Unavailable Care Physician, No Primary Primary Care Unava ilable Triisadora TIP PRINTER, Lesa Primary Care Unavailable Christos Esparza Attending Unavailable Care Physician, No Primary Primary Care Unava ilable Nolan Cervantes Attending Unavailable Triisadora TIP PRINTER, Lesa Primary Care Unavailable Juan Tapia Attending Unavailable NO, PHYSICIAN Primary Care Unavailable WU CRISOSTOMO Attending Unavailable TRILL, LESA C Attending Unavailable TRILL, LESA C Primary Care Unavailable TRILL, LESA C Referring Unavailable TRILL, LESA C Attending Unavailable TRILL, LESA C Primary Care Unavailable Medications Current Medications Medication Drug Class(es) Dates Sig (Normalized) Sig (Original) acetaminophen 325 mg / oxyCODONE hydrochloride 5 mg oral tablet (1 source) Opioid Agonist Start: 02-23-2024 take 1 tablet by mouth every six hours as needed for pain Oxycodone-Acetami nophen (Percocet) 5-325 mg tablet Active 1 {tbl} PO EVERY 6 HOURS as needed for pain 12 3 February 23, 2024 DULoxetine 30 mg delayed release oral capsule (1 source) Serotonin and Norepinephrine Reuptake Inhibitor Start: 02-23-2024 Duloxetine (Cymbalta) 30 mg capsule,delayed release(DR/EC) Active 30 mg PO DAILY February 23, 2024 12:00am one capsule for 14 days and then increase to 2capsule lansoprazole 30 mg delayed release oral capsule (1 source) Proton Pump Inhibitor Start: 07-15-2024 take 1 capsule by mouth once daily Lansoprazole (Prevacid) 30 mg capsule,delayed release(DR/EC) Active 30 mg PO DAILY July 15, 2024 12:00am metFORMIN hydrochloride 1000 mg oral tablet (2 sources) Biguanide Start: 03-28-2023 take 1 tablet by mouth twice daily Metformin 1,000 mg Tablet Active 1000 mg PO TWICE A DAY March 28, 2023 12:00am ondansetron 4 mg disintegrating oral tablet (5 sources) Serotonin-3 Receptor Antagonist Start: 07-15-2024 take 1 tablet by mouth every eight hours as needed for nausea Ondansetron 4 mg tablet,disintegra ting Active 4 mg PO EVERY 8 HOURS NEEDED as needed for Nausea September 30, 2024 1:00am Start: 02-28-2017 take 1 tablet by [facility] three times daily ZOFRAN 4 MG TABS One tablet by mouth three times daily ONDANSETRON HCL [id number] Collette Curiel MD Start: 02-28-2017 take 1 tablet by jluis three times daily ZOFRAN 4 MG TABS One tablet by mouth three times daily ONDANSETRON HCL [id number] Collette Curiel MD progesterone 200 mg oral capsule (1 source) Progesterone Start: 02-23-2024 take 1 capsule by mouth at bedtime Progesterone Micronized 200 mg capsule Active 200 mg PO AT BEDTIME February 23, 2024 12:00am promethazine hydrochloride 25 mg oral tablet (1 source) Phenothiazine Start: 02-23-2024 take 1 tablet by mouth three times daily as needed for nausea and vomiting Promethazine 25 mg tablet Active 25 mg PO THREE TIMES A DAY as needed for nausea and vomiting 21 7 February 23, 2024 6:36am 24 hr propranolol hydrochloride 80 mg extended release oral capsule (1 source) beta-Adrenergic Vasiliy Start: 02-23-2024 Propranolol 80 mg capsule,extended release 24 hr Active 20 mg PO TWICE A DAY as needed for anxiety February 23, 2024 12:00am half a tablet to 2 tablets up to twice a day venlafaxine 75 mg oral tablet (9 sources) Serotonin and Norepinephrine Reuptake Inhibitor venlafaxine (EFFEXOR) 75 mg tablet Take 75 mg by mouth once daily. Taking 112 mg a day Active Completed/Discontinued Medications Medication Drug Class(es) Dates Sig (Normalized) Sig (Original) B INFANTIS/B ANI/B CONSUELO/B BIFID (PROBIOTIC 4X ORAL) (2 sources) End: 09-03-2024 B INFANTIS/B ANI/B CONSUELO/B BIFID (PROBIOTIC 4X ORAL) Take by mouth. 09/03/2024 Discontinued B INFANTIS/B ANI /B CONSUELO/B BIFID (PROBIOTIC 4X ORAL) Take by mouth. Active benzonatate 100 mg oral capsule (2 sources) Non-narcotic Antitussive Start: 10-05-2018 End: 09-03-2024 benzonatate (TESSALON PERLE) 100 mg capsule Indications: URI, acute Take 1-2 capsules tid prn 30 capsule 10/05/2018 09/03/2024 Discontinued dicyclomine hydrochloride 10 mg oral capsule (2 sources) Anticholinergic Start: 06-27-2019 End: 09-03-2024 take 1 capsule by mouth at bedtime dicyclomine (BENTYL) 10 mg capsule Take 1 capsule by mouth before meals and at bedtime. 90 capsule 2 06/27/2019 09/03/2024 Discontinued doxycycline hyclate 100 mg oral capsule (3 sources) Tetracycline-class Drug take 1 tablet by mouth twice daily DOXYCYCLINE HYCLATE 100 MG CAPS One tablet by mouth twice daily DOXYCYCLINE HYCLATE [id number] Collette Curiel MD Norgestrel-Ethinyl Estradiol (4 sources) Estrogen Start: 09-23-2017 End: 09-26-2019 Norgestrel-Ethiny l Estradiol 1 EACH tablet Discontinued 1 {tbl} PO DAILY September 23, 2017 1:00am September 26, 2019 1:27pm Start: 09-23-2017 End: 09-26-2019 take 1 tablet by mouth once daily Norgestrel-Ethinyl Estradiol Discontinued 1 TABLET PO DAILY September 23, 2017 1:00am September 26, 2019 1:27pm Start: 07-13-2017 End: 09-03-2024 CRYSELLE 0.3-30 mg-mcg per t ablet 07/13/2017 09/03/2024 Discontinued Start: 07-13-2017 CRYSELLE 0.3-3 0 mg-mcg per tablet 07/13/2017 Active famotidine 20 mg oral tablet (2 sources) Histamine-2 Receptor Antagonist Start: 02-20-2017 End: 03-03-2017 take 1 tablet by mouth twice daily Famotidine 20 MG tablet Discontinued 20 mg PO TWICE A DAY February 20, 2017 12:00am March 03, 2017 12:16pm 12 hr guaiFENesin 600 mg extended release oral tablet (2 sources) Start: 10-05-2018 End: 09-03-2024 take 2 tablets by mouth twice daily guaiFENesin (MUCINEX) 600 mg 12 hr tablet Indications: URI, acute Take 2 tablets by mouth twice daily. 24 tablet 10/05/2018 09/03/2024 Discontinued metroNIDAZOLE 500 mg oral tablet (3 sources) Nitroimidazole Antimicrobial take 1 tablet by mouth three times daily FLAGYL 500 MG TABS One tablet by mouth three times daily METRONIDAZOLE [id number] Collette Curiel MD Drug Treatment Unknown - unknown (1 source) No information available. VIT/IRON FUM/FOLIC AC ( 10/02 ORAL) (2 sources) End: 09-03-2024 VIT/IRON FUM/FOLIC AC ( 10/02 ORAL) Take by mouth. 09/03/2024 Discontinued VIT/IRO N FUM/FOLIC AC ( 10/02 ORAL) Take by mouth. Active sucralfate 1000 mg oral tablet (3 sources) Aluminum Complex take 1 tablet by mouth four times daily CARAFATE 1 GM TABS One tablet by mouth four times daily SUCRALFATE [id number] Collette Curiel MD take 1 tablet by mouth four time s daily CARAFATE 1 GM TABS One tablet by mouth four times daily SUCRALFATE [id number] Collette Curiel MD Problems Active Problems Problem Classification Problem Date Documented Date Episodic/Chronic Administrative/socia l admission (7 sources) Patient encounter status; Translations: [Dietary counseling and surveillance] 09-11-2024 Episodic Anxiety disorders (16 sources) Anxiety; Translations: [Anxiety disorder, unspecified] Onset: 09-22-2024 03-28-2023 Chronic Diabetes mellitus without complication (17 sources) Type 2 diabetes mellitus without complication; Translations: [Type 2 diabetes mellitus without complications] Onset: 09-03-2024 09-11-2024 Chronic Diseases of white blood cells (1 source) Leukocytosis; Translations: [Elevated white blood cell count, unspecified] 07-23-2024 Chronic Disorders of lipid metabolism (7 sources) Dyslipidemia; Translations: [Hyperlipidemia, unspecified] Onset: 11-08-2024 11-08-2024 Chronic Esophageal disorders (4 sources) Gastroesophageal reflux disease; Translations: [Gastro-esophageal reflux disease without esophagitis] Onset: 02-28-2017 02-28-2017 Chronic Female infertility (3 sources) Primary female infertility; Translations: [Female infertility, unspecified] Onset: 11-18-2024 08-28-2024 Chronic Fluid and electrolyte disorders (2 sources) Dehydration; Translations: [Dehydration] 10-08-2024 Episodic Menstrual disorders (13 sources) Secondary amenorrhea; Translations: [Secondary amenorrhea] Onset: 09-22-2024 09-26-2019 Chronic Other disorders of stomach and duodenum (1 source) Cyclical vomiting syndrome; Translations: [Cyclical vomiting syndrome unrelated to migraine] 09-30-2024 Episodic Other endocrine disorders (3 sources) Polycystic ovaries; Translations: [Polycystic ovarian syndrome] Onset: 02-28-2017 02-28-2017 Chronic Other endocrine disorders (16 sources) Polycystic ovary syndrome; Translations: [Polycystic ovarian syndrome] Onset: 02-28-2017 08-28-2024 Chronic Other endocrine disorders (1 source) Polycystic ovarian syndrome; Translations: [PCOS (polycystic ovarian syndrome)] Onset: 11-18-2024 Chronic Other injuries and conditions due to external causes (2 sources) Closed injury of head; Translations: [Unspecified injury of head, initial encounter] 01-10-2019 Episodic Other nutritional; endocrine; and metabolic disorders (3 sources) Overweight; Translations: [Overweight] Onset: 02-28-2017 02-28-2017 Chronic Other nutritional; endocrine; and metabolic disorders (1 source) Obese class I; Translations: [Obesity, Class I, BMI 30-34.9] 10-30-2024 Chronic Other nutritional; endocrine; and metabolic disorders (1 source) Body mass index 30+ - obesity; Translations: [Body mass index (BMI) 32.0-32.9, adult] 10-08-2024 Chronic Other screening for suspected conditions (not mental disorders or infectious disease) (1 source) Cancer cervix screening status; Translations: [Encounter for screening for malignant neoplasm of cervix] 08-28-2024 Episodic Other skin disorders (4 sources) Hirsutism; Translations: [Hirsutism] Onset: 11-27-2024 11-27-2024 Episodic Other upper respiratory infections (1 source) Acute upper respiratory infection; Translations: [Acute upper respiratory infection, unspecified] 11-03-2024 Episodic Residual codes; unclassified (1 source) Early satiety; Translations: [Early satiety] 09-03-2024 Episodic Residual codes; unclassified (2 sources) H/O: major abdominal surgery; Translations: [Acquired absence of other genital organ(s)] 11-18-2024 Episodic Substance-related disorders (1 source) Cannabis use, unspecified, uncomplicated; Translations: [Cannabis use disorder] 09-30-2024 Episodic Past or Other Problems Problem Classification Problem Date Documented Date Episodic/Chronic Abdominal pain (20 sources) Right upper quadrant pain; Translations: [Epigastric pain] Onset: 05-16-2017 05-16-2017 Episodic Biliary tract disease (13 sources) Calculus of gallbladder without cholecystitis without obstruction; Translations: [Gallstone] Onset: 08-28-2017 08-28-2017 Episodic Inflammatory diseases of female pelvic organs (3 sources) Female pelvic inflammatory disease; Translations: [Female pelvic inflammatory disease, unspecified] Onset: 02-28-2017 03-01-2017 Episodic Nausea and vomiting (7 sources) Nausea; Translations: [Nausea] Onset: 08-07-2024 09-03-2024 Episodic Noninfectious gastroenteritis (11 sources) Chronic diarrhea; Translations: [Noninfective gastroenteritis and colitis, unspecified] Onset: 09-03-2024 09-03-2024 Episodic Other skin disorders (1 source) Hirsutism; Translations: [Hirsutism] Onset: 11-08-2024 Episodic Residual codes; unclassified (2 sources) Early satiety; Translations: [Early satiety] Onset: 09-03-2024 Episodic Suicide and intentional self-inflicted injury (11 sources) Suicidal thoughts; Translations: [Suicidal ideations] Onset: 09-22-2024 03-28-2023 Episodic Unclassified (2 sources) right salpingectomy 04-23-2022 Unclassified (2 sources) Contusion of left shoulder, initial encounter 01-10-2019 Unclassified (2 sources) Patient encounter status 11-18-2024 Results Test Name Value Interpretation Reference Range Facility ED Prov Noteon 02-08-2025 ED Prov Note HPI: 02/08/2025, Time: @MARLYN@ Joshuatd Choudhary is a 30 y.o. female presenting to the ED for panic attack, beginning since this morning ago. The complaint has been constant, moderate in severity, and worsened by nothing. Unsure what triggered it. No fever chills or fatigue and no chest pain or difficulty breathing but just feels very shaky and restless and history of anxiety ROS: Pertinent positives and negatives are stated within HPI, all other systems reviewed and are negative. PAST HISTORY Past Medical History: @[facility]@ Past Surgical History: has no past surgical history on file. Social History: reports that she has never smoked. She has never used smokeless tobacco. She reports current drug use. Drug: Marijuana. Family History: family history is not on file. The patient's home medications have been reviewed. Allergies: Patient has no known allergies. RESULTS All laboratory and radiology results have been personally reviewed by myself LABS: No results found for this or any previous visit. RADIOLOGY: Interpreted by Radiologist. No orders to display NURSING NOTES AND VITALS REVIEWED The nursing notes within the ED encounter and vital signs as below have been reviewed. BP (!) 159/121 (BP Location: Left arm, Patient Position: Sitting) Pulse 92 Temp 97.7 degrees F (36.5 degrees C) (Temporal) Resp 18 Ht 5' 6 Wt 81.6 kg (180 lb) LMP (LMP Unknown) SpO2 100% BMI 29.05 kg/m Oxygen Saturation Interpretation: Normal PHYSI YESSENIA EXAM Constitutional/General: Alert and oriented x3, very anxious but no respiratory distress Head: NC/AT Eyes: PERRL, EOMI Mouth: Oropharynx clear, handling secretions, no trismus Neck: Supple, full ROM, no meningeal signs Pulmonary: Lungs clear to auscultation bilaterally, no wheezes, rales, or rhonchi. Not in respiratory distress Cardiovascular: Regular rate and rhythm, no murmurs, gallops, or rubs. 2+ distal pulses Abdomen: Soft, non tender, non distended, Extremities: Moves all extremities x 4. Warm and well perfused Skin: warm and dry without rash Neurologic: GCS 15, Psych: Very anxious -- ED COURSE/MEDICAL DECISION MAKING Medications LORazepam (ATIVAN) tablet 1 mg (has no administration in time range) Medical Decision Making: Will treat with Ativan Counseling: The emergency provider has spoken with the patient and discussed today's results, in addition to providing specific details for the plan of care and counseling regarding the diagnosis and prognosis. Questions are answered at this time and they are agreeable with the plan. ----- IMPRESSION AND DISPOSITION ----- IMPRESSION 1. Panic attack DISPOSITION Disposition: discharged to home Patient condition is stable Summation Patient Course: Improved ED Medications administered this visit: Medications LORazepam (ATIVAN) tablet 1 mg (has no administration in time range) New Prescriptions from this visit: New Prescriptions hydrOXYzine (VISTARIL) 50 MG capsule Take 1 (one) capsule (50 mg total) by mouth 3 (three) times a day as needed for itching . [place]: [facility] [place] [address] [facility] [address] [facility] [id number] In 3 days Final Impression: 1. Panic attack (Please note that portions of this note were completed with a voice recognition program. Efforts were made to edit the dictations but occasionally words are mis-transcribed.) Wu Crisostomo MD 02/08/25 [id number] AUTHENTICATED BY WU CRISOSTOMO, ON 02/08/2025 08:54:48 [facility] Absolute lymphocyte countOrd ered By: Juan Tapia on 02-06-2025 Lymphocytes Auto (Unsp spec) [#/Vol] 2.06 10*3/uL 0.83-4.[address] [facility] Absolute neutrophil countOrd ered By: Juan Tapia on 02-06-2025 Neutrophils (Bld) [#/Vol] 12.2 10*3/uL High 2.0-7.[address] [facility] Alcohol, Blood (Medical)-Ser umon 02-06-2025 SERUM ETOH < 10.1 Normal <=10.[address] [facility] Comment on above: Result Comment: Hemo lysis Present, Results may be affected. This test is for medical purposes only. The legal definition of intoxication varies according to local law. Performed By: #### L 501.9100, L501.2450, L700.6800, L100.0100, L500.4050, L505.5000 ####[facility] [address] [place], [place], [id number] Amphetamine detection with 1 000 ng/mL as cutoffOrdered By: Juan Tapia on 02-06-2025 Amphetamines Screen method >1000 ng/mL Ql (U) Negative < 200 ng/mL [facility] Anion gap in Serum or Plasma Ordered By: Juan Tapia on 02-06-2025 Anion gap [Moles/Vol] 11 mmol/L 5-15 [facility] Automated lymphocyte count a s percentage of total leukocytesOrdered By: Juan Tapia on 02-06-2025 Lymphocytes/100 WBC Auto (Unsp spec) 13.9 % Low 19-[address] [facility] BUN/creatinine ratioOrdered By: Juan Tapia on 02-06-2025 Urea nitrogen/Creatinine [Mass ratio] 9.7 mg/mg Low 10-[address] [facility] Basophil percentageOrdered B y: Juan Tapia on 02-06-2025 Basophils/100 WBC (Bld) 0.2 % 0-[address] [facility] Bilirubin, totalOrdered By: Juan Tapia on 02-06-2025 Bilirubin [Mass/Vol] 0.41 mg/dL 0.00-1.30 [facility] CBC W/Diff, Automatedon Absolute Lymph 2.06 X10 3/uL Normal 0.83-4.[address] [facility] Comment on above: Performed By: #### L 501.9100, L501.2450, L700.6800, L100.0100, L500.4050, L505.5000 ####[facility] [address] [place], [address] Absolute Neut 12.2 X10 3/uL High 2.0-7.[address] [facility] Comment on above: Performed By: #### L 501.9100, L501.2450, L700.6800, L100.0100, L500.4050, L505.5000 ####[facility] [address] [place], [address] Basophils/100 WBC (Bld) 0.2 % Normal 0-[address] [facility] Comment on above: Performed By: #### L 501.9100, L501.2450, L700.6800, L100.0100, L500.4050, L505.5000 ####[facility] [address] [place], [address] Eosinophils/100 WBC (Bld) 0.0 % Normal 0-[address] [facility] Comment on above: Performed By: #### L 501.9100, L501.2450, L700.6800, L100.0100, L500.4050, L505.5000 ####[facility] [address] [place], [address] Erythrocyte distribution width (RBC) [Ratio] 13.2 % Normal 11.6-14.[address] [facility] Comment on above: Performed By: #### L 501.9100, L501.2450, L700.6800, L100.0100, L500.4050, L505.5000 ####[facility] [address] [place], [address] Hematocrit (Bld) [Volume fraction] 40.4 % Normal 37-[address] [facility] Comment on above: Performed By: #### L 501.9100, L501.2450, L700.6800, L100.0100, L500.4050, L505.5000 ####[facility] [address] [place], [address] Hemoglobin (Bld) [Mass/Vol] 13.5 g/dL Normal 12.0-15.[address] [facility] Comment on above: Performed By: #### L 501.9100, L501.2450, L700.6800, L100.0100, L500.4050, L505.5000 ####[facility] [address] [place], [address] IG% 0.800 Normal 0.0-0.[address] [facility] Comment on above: Result Comment: IG% - Immature Granulocytes (promyelocytes, myelocytes and metamyelocytes) > 1% indicates that a LEFT SHIFT is Present. Performed By: #### L 501.9100, L501.2450, L700.6800, L100.0100, L500.4050, L505.5000 ####[facility] [address] [place], [address] Lymphocytes/100 WBC (Bld) 13.9 % Low 19-[address] [facility] Comment on above: Performed By: #### L 501.9100, L501.2450, L700.6800, L100.0100, L500.4050, L505.5000 ####[facility] [address] [place], [address] MCH (RBC) [Entitic mass] 28.7 pg Normal 27.0-32.[address] [facility] Comment on above: Performed By: #### L 501.9100, L501.2450, L700.6800, L100.0100, L500.4050, L505.5000 ####[facility] [address] [place], [address] MCHC (RBC) [Mass/Vol] 33.4 g/dL Normal 32-36 [facility] Comment on above: Performed By: #### L 501.9100, L501.2450, L700.6800, L100.0100, L500.4050, L505.5000 ####[facility] [address] [place], [address] MCV (RBC) [Entitic vol] 85.8 fL Normal 81-[address] [facility] Comment on above: Performed By: #### L 501.9100, L501.2450, L700.6800, L100.0100, L500.4050, L505.5000 ####[facility] [address] [place], [address] Monocytes/100 WBC (Bld) 2.3 % Normal 0-[address] [facility] Comment on above: Performed By: #### L 501.9100, L501.2450, L700.6800, L100.0100, L500.4050, L505.5000 ####[facility] [address] [place], [address] Neutrophils/100 WBC (Bld) 82.8 % High 47-[address] [facility] Comment on above: Performed By: #### L 501.9100, L501.2450, L700.6800, L100.0100, L500.4050, L505.5000 ####[facility] [address] [place], [address] Nucleated RBC (Bld) [#/Vol] 0 10*3/uL Normal 0-[address] [facility] Comment on above: Performed By: #### L 501.9100, L501.2450, L700.6800, L100.0100, L500.4050, L505.5000 ####[facility] [address] [place], [address] Platelet mean volume (Bld) [Entitic vol] 11.3 fL Normal 6.2-12.[address] [facility] Comment on above: Performed By: #### L 501.9100, L501.2450, L700.6800, L100.0100, L500.4050, L505.5000 ####[facility] [address] [place], [address] Platelets (Bld) [#/Vol] 324 10*3/uL Normal 150-[address] [facility] Comment on above: Performed By: #### L 501.9100, L501.2450, L700.6800, L100.0100, L500.4050, L505.5000 ####[facility] [address] [place], [address] RBC (Bld) [#/Vol] 4.71 10*6/uL Normal 4.2-5.4 [facility] Comment on above: Performed By: #### L 501.9100, L501.2450, L700.6800, L100.0100, L500.4050, L505.5000 ####[facility] [address] [place], [address] RDW SD 41.2 fl Normal 35.1-43.[address] [facility] Comment on above: Performed By: #### L 501.9100, L501.2450, L700.6800, L100.0100, L500.4050, L505.5000 ####[facility] [address] [place], [address] WBC (Bld) [#/Vol] 14.8 10*3/uL High 4.4-11.0 [facility] Comment on above: Performed By: #### L 501.9100, L501.2450, L700.6800, L100.0100, L500.4050, L505.5000 ####[facility] [address] [place], [address] Carbon dioxide, total [Moles /volume] in Central venous bloodOrdered By: Juan Tapia on 02-06-2025 CO2 [Moles/Vol] 25.0 mmol/L 21.0-32.[address] [facility] Chloride assayOrdered By: Luisito Tapia on 02-06-2025 Chloride [Moles/Vol] 105 mmol/L 98-108 [facility] Comprehensive Metabolic Prof ilon 02-06-2025 Albumin [Mass/Vol] 4.7 g/dL Normal 3.5-5.0 [facility] Comment on above: Performed By: #### L 501.9100, L501.2450, L700.6800, L100.0100, L500.4050, L505.5000 ####[facility] [address] [place], [address] Albumin/Globulin [Mass ratio] 1.5 {ratio} Normal 0.9-2.[address] [facility] Comment on above: Performed By: #### L 501.9100, L501.2450, L700.6800, L100.0100, L500.4050, L505.5000 ####[facility] [address] [place], [address] ALK PHOS 65 U/L Normal 35-[address] [facility] Comment on above: Performed By: #### L 501.9100, L501.2450, L700.6800, L100.0100, L500.4050, L505.5000 ####[facility] [address] [place], [address] ALT [Catalytic activity/Vol] 23 U/L Normal <=[address] [facility] Comment on above: Performed By: #### L 501.9100, L501.2450, L700.6800, L100.0100, L500.4050, L505.5000 ####[facility] [address] [place], [address] AST [Catalytic activity/Vol] 27 U/L Normal <=[address] [facility] Comment on above: Performed By: #### L 501.9100, L501.2450, L700.6800, L100.0100, L500.4050, L505.5000 ####[facility] [address] [place], [address] Bilirubin [Mass/Vol] 0.41 mg/dL Normal 0.00-1.30 [facility] Comment on above: Performed By: #### L 501.9100, L501.2450, L700.6800, L100.0100, L500.4050, L505.5000 ####[facility] [address] [place], [address] BUN/CRE 9.7 RATIO Low 10-[address] [facility] Comment on above: Performed By: #### L 501.9100, L501.2450, L700.6800, L100.0100, L500.4050, L505.5000 ####[facility] [address] [place], [address] Calcium [Mass/Vol] 11.2 mg/dL High 7.6-11.0 [facility] Comment on above: Performed By: #### L 501.9100, L501.2450, L700.6800, L100.0100, L500.4050, L505.5000 ####[facility] [address] [place], [address] Chloride [Moles/Vol] 105 mmol/L Normal 98-108 [facility] Comment on above: Performed By: #### L 501.9100, L501.2450, L700.6800, L100.0100, L500.4050, L505.5000 ####[facility] [address] [place], [address] CO2 [Moles/Vol] 25.0 mmol/L Normal 21.0-32.[address] [facility] Comment on above: Performed By: #### L 501.9100, L501.2450, L700.6800, L100.0100, L500.4050, L505.5000 ####[facility] [address] [place], [address] Creatinine [Mass/Vol] 0.82 mg/dL Normal 0.70-1.20 [facility] Comment on above: Performed By: #### L 501.9100, L501.2450, L700.6800, L100.0100, L500.4050, L505.5000 ####[facility] [address] [place], [address] ECRCL 106.76 ml/min Normal 50-[address] [facility] Comment on above: Performed By: #### L 501.9100, L501.2450, L700.6800, L100.0100, L500.4050, L505.5000 ####[facility] [address] [place], [address] GAP 11 Normal 5-[address] [facility] Comment on above: Performed By: #### L 501.9100, L501.2450, L700.6800, L100.0100, L500.4050, L505.5000 ####[facility] [address] [place], [address] GFR/1.73 sq M.predicted among non-blacks MDRD (S/P/Bld) [Vol rate/Area] 97 mL/min/{1.73_m2} Normal >[address] [facility] Comment on above: Result Comment: mL/m in/1.73m2 CKD-EPI Creatinine Equation (2020) Performed By: #### L 501.9100, L501.2450, L700.6800, L100.0100, L500.4050, L505.5000 ####[facility] [address] [place], [address] Globulin (S) [Mass/Vol] 3.2 g/dL Normal 2.2-4.[address] [facility] Comment on above: Performed By: #### L 501.9100, L501.2450, L700.6800, L100.0100, L500.4050, L505.5000 ####[facility] [address] [place], [address] Glucose [Mass/Vol] 177 mg/dL High 70-99 [facility] Comment on above: Performed By: #### L 501.9100, L501.2450, L700.6800, L100.0100, L500.4050, L505.5000 ####[facility] [address] [place], [address] Potassium [Moles/Vol] 4.7 mmol/L Normal 3.3-5.1 [facility] Comment on above: Performed By: #### L 501.9100, L501.2450, L700.6800, L100.0100, L500.4050, L505.5000 ####[facility] [address] [place], [address] Sodium [Moles/Vol] 141 mmol/L Normal 133-145 [facility] Comment on above: Performed By: #### L 501.9100, L501.2450, L700.6800, L100.0100, L500.4050, L505.5000 ####[facility] [address] [place], [address] T PROT 7.9 g/dL Normal 5.9-8.[address] [facility] Comment on above: Performed By: #### L 501.9100, L501.2450, L700.6800, L100.0100, L500.4050, L505.5000 ####[facility] [address] [place], [address] Urea nitrogen [Mass/Vol] 8 mg/dL Normal 4-[address] [facility] Comment on above: Performed By: #### L 501.9100, L501.2450, L700.6800, L100.0100, L500.4050, L505.5000 ####[facility] [address] [place], [address] Emergency Department Summary on 02-06-2025 Emergency Department Summary [facility] Medical Records Department [address] [place] [address] Emergency Department Summary 02/06/25 MR#: [id number] Acct: [id number] Name: JOSHUA CHOUDHARY Rep #: [id number] : 1995 30 From: Juan Tapia MD PCP: Lesa Soler NP-C Status:REG ER Location: ED HPI History of Present Illness Chief Complaint: Anxiety Narrative Narrative: 30-year-old female past medical history of anxiety disorder for which she takes Effexor and Abilify given to her by a psychiatrist presents with panic attack that started around 530 this morning, approximately 4-1/2 hours ago. She states that she feels overwhelmed and started feeling anxious. Her last panic attack was within the last year. She states she had to come to the emergency department for it previously. She states that it is associated with nausea and vomiting. However, this is similar to her previous panic attacks. She feels heart palpitations as well. She states she wants her panic to stop. [facility] Medical History Anxiety disorder Cannabis use disorder Cyclic vomiting syndrome PCOS (polycystic ovarian syndrome) Home Medications ???Medication ???Instructions ???Recorded ???Last Taken ???Type metformin 1,000 mg tablet 1,000 mg PO BID 03/28/23 Unknown H istory duloxetine 30 mg capsule,delayed 30 mg PO DAILY 02/23/24 Unknown Hi story release (Cymbalta) oxycodone-acetaminophen 5 mg-325 1 tab PO Q6H PRN pain 3 days #12 0 02/23/24 Unknown Rx mg tablet (Percocet) tabs progesterone micronized 200 mg 200 mg PO QHS 02/23/24 Unknown His tory capsule promethazine 25 mg tablet 25 mg PO TID PRN nausea and Unknown Rx vomiting 7 days #21 tabs propranolol 80 mg capsule,24 20 mg PO BID PRN anxiety 02/23/24 Unknown History hr,extended release lansoprazole 30 mg capsule,delayed 30 mg PO DAILY #14 caps 07/15/24 Unknown Rx release (Prevacid) ondansetron 4 mg disintegrating 4 mg PO Q8H PRN PRN Nausea #10 tab s 07/15/24 Unknown Rx tablet ondansetron 4 mg disintegrating 4 mg PO Q8H PRN PRN Nausea #10 tab s 09/30/24 Unknown Rx tablet Allergy/AdvReac Type Severity Reaction Status Date / Time No Known Allergies Allergy Verified 02/06/25 09:39 Family History Mother Cancer skin Surgical History right salpingectomy FH: cholecystectomy Social History housing: apartment number of children: 0 current occupational status: employed current occupation: [employer] Smoking Status: Never smoker Smokeless tobacco user: chewing tobacco alcohol intake: current alcohol intake frequency: holidays/special occasions only substance use type: marijuana seatbelt use: always do you feel safe at home: Yes additional social history: [employer] ROS ROS ED ROS Narrative Positive anxiety. Positive palpitations. Feels heart racing. Denies chest pain or shortness of breath. Positive nausea and vomiting which is associated with her panic attack. No exacerbating or alleviating factors. EXAM Physical Exam Narrative Exam Narrative: Afebrile. Vital signs noted. Nontoxic-appearing. Cardiovascular examination reveals mild tachycardia. Lungs clear to auscultation bilaterally. Abdomen soft and nontender without guarding or rebound. Neurological examination nonfocal nonlateralizing. Positive anxiety on psychiatric examination, no suicidal ideation. Const Vital Signs: 02/06/25 09:37 02/06/25 09:37 02/06/25 11:52 Temperature 97 F L Temperature Source Temporal Pulse Rate 122 H 115 H 119 H Respiratory Rate 22 H 20 H Blood Pressure 141/76 H 140/91 H Blood Pressure Mean 97 107 Pulse Ox 98 Oxygen Delivery Method Room Air 02/06/25 13:00 Temperature Temperature Source Pulse Rate 89 Respiratory Rate 14 Blood Pressure 141/76 H Blood Pressure Mean 97 Pulse Ox 98 Oxygen Delivery Method Room Air MDM MDM MDM Narrative Medical decision making narrative: I reviewed the patient's prior records. While the differential diagnosis does include nausea and vomiting from cannabis use disorder and she has a history of cyclic vomiting, I reviewed her prior ED visit and she did have medical clearance labs drawn previously but did receive Ativan for anxiety. Initially, in discussion with the patient she will be given Ativan 1 mg intramuscularly and reassessed. Should she become suicidal or still have nausea and vomiting, I do feel that laboratory work would be appropriate at that time, but she will be reassessed after Ativan to see if this breaks her anxiety. Upon repea (more content not included)... Normal [facility] Eosinophil percentageOrdered By: Juan Tapia on 02-06-2025 Eosinophils/100 WBC (Bld) 0.0 % 0-[address] [facility] Erythrocyte distribution wid th ratioOrdered By: Juan Tapia on 02-06-2025 Erythrocyte distribution width (RBC) [Ratio] 13.2 % 11.6-14.[address] [facility] Erythrocyte distribution wid th standard deviationOrdered By: Juan Tapia on 02-06-2025 Erythrocyte distribution width (RBC) [Ratio] 41.2 fl 35.1-43.[address] [facility] Glomerular filtration rate ( GFR) estimation/1.73 sq m using serum, plasma, or whole bOrdered By: Juan Tapia on 02-06-2025 GFR/1.73 sq M.predicted among non-blacks MDRD (S/P/Bld) [Vol rate/Area] 97 mL/min/{1.73_m2} >[address] [facility] Comment on above: mL/min/1.73m2 CKD-EP I Creatinine Equation (2020) Hematocrit Auto (Bld) [Volum e fraction]Ordered By: Juan Tapia on 02-06-2025 Hematocrit (Bld) [Volume fraction] 40.4 % 37-[address] [facility] Hemoglobin measurementOrdere d By: Juan Tapia on 02-06-2025 Hemoglobin (Bld) [Mass/Vol] 13.5 g/dL 12.0-15.[address] [facility] Immature granulocytes/100 WB C Auto (Bld)Ordered By: Juan Tapia on 02-06-2025 Immature granulocytes/100 WBC (Bld) 0.800 % 0.0-0.[address] [facility] Comment on above: IG% - Immature Granu locytes (promyelocytes, myelocytes and metamyelocytes) > 1% indicates that a LEFT SHIFT is Present. Laboratory - Chemistry and C hemistry - challengeOrdered By: Juan Tapia on 02-06-2025 AST [Catalytic activity/Vol] 27 U/L <[address] [facility] Lipaseon 02-06-2025 Lipase [Catalytic activity/Vol] 20 U/L Normal 13-[address] [facility] Comment on above: Result Comment: Jose porter note: LIPASE revised reference range effective 23. New Lipase methodology. Expected to produce lower values than the previous assay method. NEW Reference Range: 13 - 75 U/L Performed By: #### L 501.9100, L501.2450, L700.6800, L100.0100, L500.4050, L505.5000 ####[facility] [address] [place], [address] Lipase measurementOrdered By : Juan Tapia on 02-06-2025 Lipase [Catalytic activity/Vol] 20 U/L 13-[address] [facility] Comment on above: Please note:LIPASE r evised reference range effective 23. New Lipase methodology. Expected to produce lower values than the previous assay method. NEW Reference Range: 13 - 75 U/L MCV (mean corpuscular volume ) determinationOrdered By: Juan Tapia on 02-06-2025 MCV (RBC) [Entitic vol] 85.8 fL 81-[address] [facility] Mean corpuscular hemoglobin (MCH) determinationOrdered By: Juan Tapia on 02-06-2025 MCH (RBC) [Entitic mass] 28.7 pg 27.0-32.[address] [facility] Mean corpuscular hemoglobin concentration (MCHC) determinationOrdered By: Juan Tapia on 02-06-2025 MCHC (RBC) [Mass/Vol] 33.4 g/dL 32-36 [facility] Mean platelet volume determi nationOrdered By: Juan Tapia on 02-06-2025 Platelet mean volume (Bld) [Entitic vol] 11.3 fL 6.2-12.[address] [facility] Monocyte percentageOrdered B y: Juan Tapia on 02-06-2025 Monocytes/100 WBC (Bld) 2.3 % 0-[address] [facility] Neutrophil percentageOrdered By: Juan Tapia on 02-06-2025 Neutrophils/100 WBC (Bld) 82.8 % High 47-[address] [facility] No Panel InformationOrdered By: Juan Tapia on 02-06-2025 Urine Buprenorphine Qualitative Negative < 200 ng/mL [facility] Urine Oxycodone Screen Negative < 100 ng/mL [facility] Nucleated red blood cell per centageOrdered By: Juan Tapia on 02-06-2025 Nucleated RBC/100 WBC (Bld) [Ratio] 0 % 0-[address] [facility] Platelet countOrdered By: Luisito Tapia on 02-06-2025 Platelets (Bld) [#/Vol] 324 10*3/uL 150-[address] [facility] Potassium measurement (mass/ volume)Ordered By: Juan Tapia on 02-06-2025 Potassium (Unsp spec) [Mass/Vol] 4.7 mmol/L 3.3-5.[address] [facility] ,Serum,hCG Quali.on 02-06-2025 HCG, SERUM QUAL Negative Normal [facility] Comment on above: Performed By: #### L 501.9100, L501.2450, L700.6800, L100.0100, L500.4050, L505.5000 ####[facility] [address] [place], [place], [id number] Quantitative urine opiates m easurementOrdered By: Juan Tapia on 02-06-2025 Opiates Ql (U) Negative < 300 ng/mL [facility] RBC Auto (Bld) [#/Vol]Ordere d By: Juan Tapia on 02-06-2025 RBC (Bld) [#/Vol] 4.71 10*6/uL 4.2-5.4 [facility] Screening urine fentanyl cally surementOrdered By: Juan Tapia on 02-06-2025 fentaNYL Screen Ql (U) Negative [facility] Serum beta-hCG test, qualita tiveOrdered By: Juan Tapia on 02-06-2025 Beta HCG ( test) Ql Negative [facility] Serum creatinine measurement (mass/volume)Ordered By: Juan Tapia on 02-06-2025 Creatinine [Mass/Vol] 0.82 mg/dL 0.70-1.20 [facility] Serum globulin measurementOr dered By: Juan Tapia on 02-06-2025 Globulin (S) [Mass/Vol] 3.2 g/dL 2.2-4.[address] [facility] Serum glucose measurement (m ass/volume)Ordered By: Juan Tapia on 02-06-2025 Glucose [Mass/Vol] 177 mg/dL High 70-99 [facility] Serum or plasma alanine peterson otransferase (ALT) measurementOrdered By: Juan Tapia on 02-06-2025 ALT [Catalytic activity/Vol] 23 U/L <[address] [facility] Serum or plasma albumin prakash urement (mass/volume)Ordered By: Juan Tapia on 02-06-2025 Albumin [Mass/Vol] 4.7 g/dL 3.5-5.0 [facility] Serum or plasma albumin/glob ulin mass ratioOrdered By: Juan Tapia on 02-06-2025 Albumin/Globulin [Mass ratio] 1.5 {ratio} 0.9-2.[address] [facility] Serum or plasma alkaline frandy sphatase measurementOrdered By: Juan Tapia on 02-06-2025 ALP [Catalytic activity/Vol] 65 U/L 35-[address] [facility] Serum or plasma calcium prakash urement (mass/volume)Ordered By: Juan Tapia on 02-06-2025 Calcium [Mass/Vol] 11.2 mg/dL High 7.6-11.0 [facility] Serum or plasma ethanol prakash urement (mass/volume)Ordered By: Juan Tapia on 02-06-2025 Ethanol [Mass/Vol] mg/dL <10.1 [facility] Comment on above: Hemolysis Present, R esults may be affected.This test is for medical purposes only. The legal definition of intoxication varies according to local law. Serum or plasma urea nitroge n measurement (mass/volume)Ordered By: Juan Tapia on 02-06-2025 Urea nitrogen [Mass/Vol] 8 mg/dL 4-[address] [facility] Sodium levelOrdered By: Juan Regina on 02-06-2025 Sodium [Moles/Vol] 141 mmol/L 133-145 [facility] Total proteinOrdered By: Tessy Tapia on 02-06-2025 Protein [Mass/Vol] 7.9 g/dL 5.9-8.4 [facility] Urine Drug Screen (VISTA)on 02-06-2025 AMPHETAMINES Negative Normal <1000 ng/mL [facility] Comment on above: Performed By: #### L 501.9100, L501.2450, L700.6800, L100.0100, L500.4050, L505.5000 ####[facility] [address] [place] [address] BARBITIURATES Negative Normal < 200 ng/mL [facility] Comment on above: Performed By: #### L 501.9100, L501.2450, L700.6800, L100.0100, L500.4050, L505.5000 ####[facility] [address] [place], [address] BENZODIAZIPINE Negative Normal < 200 ng/mL [facility] Comment on above: Performed By: #### L 501.9100, L501.2450, L700.6800, L100.0100, L500.4050, L505.5000 ####[facility] [address] [place], [place], [phone] BUP Ur Drug Scr Negative Normal < 200 ng/mL [facility] Comment on above: Performed By: #### L 501.9100, L501.2450, L700.6800, L100.0100, L500.4050, L505.5000 ####[facility] [address] [place], [address] COCAINE Negative Normal < 300 ng/mL [facility] Comment on above: Performed By: #### L 501.9100, L501.2450, L700.6800, L100.0100, L500.4050, L505.5000 ####[facility] [address] [place], [address] Fentanyl Negative Normal [facility] Comment on above: Performed By: #### L 501.9100, L501.2450, L700.6800, L100.0100, L500.4050, L505.5000 ####[facility] [address] [place], [address] METHADONE Negative Normal < 300 ng/mL [facility] Comment on above: Performed By: #### L 501.9100, L501.2450, L700.6800, L100.0100, L500.4050, L505.5000 ####[facility] [address] [place], [address] OPIATES Negative Normal < 300 ng/mL [facility] Comment on above: Performed By: #### L 501.9100, L501.2450, L700.6800, L100.0100, L500.4050, L505.5000 ####[facility] [address] [place], [address] OXYCODONE Negative Normal < 100 ng/mL [facility] Comment on above: Performed By: #### L 501.9100, L501.2450, L700.6800, L100.0100, L500.4050, L505.5000 ####[facility] [address] [place], [address] PCP Negative Normal < 25 ng/mL [facility] Comment on above: Performed By: #### L 501.9100, L501.2450, L700.6800, L100.0100, L500.4050, L505.5000 ####[facility] [address] [place], [address] THC Positive Normal < 50 ng/mL [facility] Comment on above: Result Comment: If c onfirmation testing is needed, a separate order will be required to send out testing to the reference laboratory. Performed By: #### L 501.9100, L501.2450, L700.6800, L100.0100, L500.4050, L505.5000 ####[facility] [address] [place], [address] Urine benzodiazepine levelOr dered By: Juan Tapia on 02-06-2025 Benzodiazepines Ql (U) Negative < 200 ng/mL [facility] Urine cocaine levelOrdered B y: Juan Tapia on 02-06-2025 Cocaine Ql (U) Negative < 300 ng/mL [facility] Urine wnpew-7-qhbypvrzwpxwlr abinol (THC) measurementOrdered By: Juan Tapia on 02-06-2025 Cannabinoids Screen Ql (U) Positive < 50 ng/mL [facility] Comment on above: If confirmation test ing is needed, a separate order will be required to send out testing to the reference laboratory. Urine phencyclidine (PCP) de tectionOrdered By: Juan Tapia on 02-06-2025 Phencyclidine Ql (U) Negative < 25 ng/mL [facility] White blood cell (WBC) count Ordered By: Juan Tapia on 02-06-2025 WBC (Bld) [#/Vol] 14.8 10*3/uL High 4.4-11.0 [facility] ALBUMIN/CREATININE RATIO, UR INEon 11-09-2024 Albumin Unsp time DL <= 20 mg/L (U) [Mass/Time] 16.8 mg/L [facility] Albumin/Creatinine (U) [Mass ratio] 4 mg/g NINF - 30 mg/g [facility] Comment on above: Adult Male and Femal e Nephrotic Criteria: <30 mg/g is considered normal to mildly increased 30-300 mg/g is considered moderately increased >300 mg/g is considered severely increased KDIGO. (2013). KDIGO 2012 Clinical Practice Guideline for the Evaluation and Management of Chronic Kidney Disease. Official Journal of the International Society of Nephrology, 3(1), 1-150. Creatinine (U) [Mass/Vol] 476.6 mg/dL High 42.2 - 237.9 mg/dL [facility] Interpretation and review of laboratory results Abnormal [facility] ALBUMIN/CREATININE RATIO, UR INEon 11-08-2024 Albumin Unsp time DL <= 20 mg/L (U) [Mass/Time] 16.8 mg/L Normal [facility] Comment on above: Order Comment: Speci men Type: URINE SPECIMEN Ordering Facility: [facility] Address: [address] [place] [address] Performed By: #### U ACR #### [facility] CLIA [id number] [address] Albumin/Creatinine (U) [Mass ratio] 4 mg/g Normal <30 [facility] Comment on above: Order Comment: Speci men Type: URINE SPECIMEN Ordering Facility: [facility] Address: [address] [place] [address] Result Comment: Adul t Male and Female Nephrotic Criteria: <30 mg/g is considered normal to mildly increased 30-300 mg/g is considered moderately increased >300 mg/g is considered severely increased KDIGO. (2013). KDIGO 2012 Clinical Practice Guideline for the Evaluation and Management of Chronic Kidney Disease. Official Journal of the International Society of Nephrology, 3(1), 1-150. Performed By: #### U ACR #### [facility] CLIA [id number] [address] Creatinine (U) [Mass/Vol] 476.6 mg/dL High 42.2-237.9 [facility] Comment on above: Order Comment: Speci men Type: URINE SPECIMEN Ordering Facility: [facility] Address: [address] [place] [address] Performed By: #### U ACR #### [facility] CLIA [id number] [address] [facility] CNOVon 11-08-2024 CNOV Office Visit (TJ LOYOLA) JOSHUA CHOUDHARY ([id number]) 1995 F Date Time Provider Department 11/08/24 1:40 PM LESA SOLER During your visit today, we recorded the following information about you: Temperature Pulse Blood pressure Weight 98.1 degrees 69/minute 112/70 88 kg Height 1.676 m Lesa Soler, ROAD[employer] 11/27/2024 1:47 PM Signed Subjective Joshua Choudhary is a 29 year old female here today for diabetes follow-up. I reviewed past medical, surgical, social, and family histories today and updated chart. Allergies, chronic medications, and supplements were also reviewed. 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 Was able to develop hunger again and more frequently Still losing weight No more diarrhea Increased movement Going to college - [employer] Walking a lot more Doing EMDR therapy around the vomiting Last bad vomiting episode was end of September Did gene testing with her psychiatrist - found out she has condition where body has trouble with folate She started taking methylfolate with methylated B12 After a month she got her first natural period It was a normal period PCOS - still having a lot of facial hair Has had a lot of electrolysis done - not permanent and it caused a lot of scarring PAST MEDICAL HISTORY Diagnosis Date Cholelithiases Depression Panic disorder PCOS (polycystic ovarian syndrome) Type 2 diabetes (HCC) PAST SURGICAL HISTORY Procedure Laterality Date COLONOSCOPY FLX DX W/COLLJ SPEC WHEN PFRMD 07/03/2018 Colonoscopy ESOPHAGOGASTRODUODENOSCOPY TRANSORAL DIAGNOSTIC 07/03/2018 EGD LAPAROSCOPY SURG CHOLECYSTECTOMY 10/04/2017 Cholecystectomy, lap Barbara PAST SURGICAL HISTORY OF Right 2014 rght salpingectomy REMOVAL GALLBLADDER ALLERGIES Patient has no known allergies. MEDICATIONS venlafaxine (EFFEXOR) 75 mg tablet Take 75 mg by mouth once daily. Taking 112 mg a day FAMILY HISTORY Problem Relation Age of Onset Diabetes Maternal Grandfather Social History Tobacco Use Smoking status: Never Smokeless tobacco: Never Vaping Use Vaping status: Never Used Substance Use Topics Alcohol use: Not Currently Drug use: Yes Types: Marijuana Comment: daily Review of Systems Constitutional: Negative for appetite change, chills, fatigue, fever and unexpected weight change. HENT: Negative for congestion, ear pain, rhinorrhea and sore throat. Eyes: Negative for pain, discharge, itching and visual disturbance. Respiratory: Negative for cough, shortness of breath and wheezing. Cardiovascular: Negative for chest pain, palpitations and leg swelling. Gastrointestinal: Negative for abdominal pain, constipation, diarrhea, nausea and vomiting. Genitourinary: Negative for difficulty urinating. Musculoskeletal: Negative for arthralgias. Skin: Negative for rash. Neurological: Negative for dizziness, tremors, weakness and headaches. Psychiatric/Behavioral: Negative for dysphoric mood and sleep disturbance. The patient is not nervous/anxious. Objective BP 112/70 Pulse 69 Temp 98.1 Ht 5' 6 (1.68m) Wt 194 lb (88.0kg) SpO2 98% LMP 06/28/2024 BMI 31.33 kg/(m2). Physical Exam Constitutional: General: She is not in acute distress. Appearance: Normal appearance. HENT: Head: Normocephalic and atraumatic. Mouth/Throat: Lips: [place]. Eyes: General: Lids are normal. Extraocular Movements: Extraocular movements intact. Conjunctiva/sclera: Conjunctivae normal. Pupils: Pupils are equal. Cardiovascular: Rate and Rhythm: Normal rate and regular rhythm. Heart sounds: Normal heart sounds. No murmur heard. Pulmonary: Effort: Pulmonary effort is normal. No respiratory distress. Breath sounds: Normal breath sounds. Musculoskeletal: Cervical back: Normal range of motion. Right lower leg: No edema. Left lower leg: No edema. Skin: General: Skin is warm and dry. Findings: No rash. Neurological: General: No focal deficit present. Mental Status: She is alert and oriented to person, place, and time. Cranial Nerves: No cranial nerve deficit. Motor: Motor function is intact. Coordination: Coordination normal. Gait: Gait is intact. Psychiatric: Attention and Perception: Attention and perception normal. Mood and Affect: Mood and affect normal. Behavior: Behavior normal. Behavior is cooperative. Latest Ref Rng 09/11/2024 Protein, Total 6.3 - 8.0 g/dL 7.2 Albumin 3.9 - 4.9 g/dL 4.5 Calcium 8.5 - 10.2 mg/dL 10.5 (H) Bilirubin, Total 0.2 - 1.3 mg/dL 0.3 Alkaline Phosphatase 34 - 123 U/L 62 AST 13 - 35 U/L 24 ALT 7 - 38 U/L 26 Glucose 74 - 99 mg/dL 86 BUN 7 - 21 mg/dL 5 (L) Creatinine 0.58 - 0.96 mg/dL 0.88 Sodium 136 - 144 mmol/L 142 Potassium 3.7 - 5.1 mmol/L 4.2 Chloride 98 - 107 mmo (more content not included)... Normal [facility] CNPNon 11-08-2024 CNPN Telephone (GIULIANA) JOSHUA CHOUDHARY ([id number]) 1995 F Date Time Provider Department 11/08/24 LESA SOLER During your visit today, we recorded the following information about you: Gloria Evans MA 11/08/2024 2:16 PM Signed Per pt. She is requesting number to apex sent to my chart. Gloria Evans MA Allergies As of Date: 11/08/2024 (No Known Allergies) Date Reviewed: 11/08/2024 Reviewed by: Gloria Evans MA - Fully Assessed Prescriptions as of 11/08/2024 - venlafaxine (EFFEXOR) 75 mg tablet Take 75 mg by mouth once daily. 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] 09/22/2024 Suicidal ideation [R45.851] 09/22/2024 Chronic diarrhea [K52.9] 09/22/2024 Dyslipidemia [E78.5] 11/08/2024 Encounter Status:Closed by GLORIA EVANS on 11/08/24 [facility] CNOVon 11-03-2024 CNOV Office Visit (UCWSTR ) MAHENDRAJOSHUA ALBERT ([id number]) 1995 F Date Time Provider Department 11/03/24 11:00 AM [facility] During your visit today, we recorded the following information about you: Temperature Pulse Respiration Blood pressure 99.6 degrees 77/minute 18/minute 105/71 Weight 90.7 kg Keely Reddy APRN.FRICTION WELDING MACHINE OPERATOR 11/03/2024 11:56 AM Signed This note was created using NoteWriter. Subjective Joshua Choudhary is a 29 year old female. 29 year old female with PMH PCOS and DM presents for illness Acute onset 2 to 3 days +sore throat +body aches +runny nose + congestion +headache +chills +low grade fever +cough Denies N/V/D Denies CP Denies dyspnea +cannabis usage Denies tobacco usage Has used Theraflu with relief of symptoms The history is provided by the patient. No assistant speech language pathologist was used. URI She complains of cough. There is no chest tightness, difficulty breathing, frequent throat clearing, hemoptysis, hoarse voice, shortness of breath, sputum production or wheezing. This is a new problem. Episode onset: 2 to 3 days ago. The problem occurs constantly. The problem has been unchanged. The cough is non-productive. Associated symptoms include a fever, headaches, malaise/fatigue, myalgias, nasal congestion, postnasal drip, rhinorrhea, sneezing and a sore throat. Pertinent negatives include no appetite change, chest pain, dyspnea on exertion, ear congestion, ear pain, heartburn, orthopnea, PND, sweats, trouble swallowing or weight loss. Her symptoms are aggravated by nothing. Her symptoms are alleviated by nothing. She reports no improvement on treatment. There are no known risk factors for lung disease. There is no history of asthma, bronchiectasis, bronchitis, COPD, emphysema or pneumonia. PAST MEDICAL HISTORY Diagnosis Date Cholelithiases Depression Panic disorder PCOS (polycystic ovarian syndrome) Type 2 diabetes (HCC) PAST SURGICAL HISTORY Procedure Laterality Date COLONOSCOPY FLX DX W/COLLJ SPEC WHEN PFRMD 07/03/2018 Colonoscopy ESOPHAGOGASTRODUODENOSCOPY TRANSORAL DIAGNOSTIC 07/03/2018 EGD LAPAROSCOPY SURG CHOLECYSTECTOMY 10/04/2017 Cholecystectomy, lap Jimenez PAST SURGICAL HISTORY OF Right 2014 rght salpingectomy REMOVAL GALLBLADDER ALLERGIES Patient has no known allergies. MEDICATIONS venlafaxine (EFFEXOR) 75 mg tablet Take 75 mg by mouth once daily. FAMILY HISTORY Problem Relation Age of Onset Diabetes Maternal Grandfather Social History Tobacco Use Smoking status: Never Smokeless tobacco: Never Vaping Use Vaping status: Never Used Substance Use Topics Alcohol use: Not Currently Drug use: Yes Types: Marijuana Comment: daily Review of Systems Constitutional: Positive for fever and malaise/fatigue. Negative for appetite change and weight loss. HENT: Positive for congestion, postnasal drip, rhinorrhea, sneezing and sore throat. Negative for ear pain, hoarse voice and trouble swallowing. Eyes: Negative for pain, discharge, redness and itching. Respiratory: Positive for cough. Negative for apnea, hemoptysis, sputum production, shortness of breath and wheezing. Cardiovascular: Negative for chest pain, dyspnea on exertion and PND. Gastrointestinal: Negative for abdominal pain, diarrhea, heartburn, nausea and vomiting. Musculoskeletal: Positive for myalgias. Negative for arthralgias and back pain. Skin: Negative for color change, pallor, rash and wound. Allergic/Immunologic: Negative for environmental allergies, food allergies and immunocompromised state. Neurological: Positive for headaches. Negative for dizziness and facial asymmetry. Hematological: Positive for adenopathy. Does not bruise/bleed easily. Psychiatric/Behavioral: Negative for agitation and behavioral problems. Objective BP 105/71 Pulse 77 Temp 37.6 ?C (99.6 ?F) Resp 18 Wt 90.7 kg (199 lb 15.3 oz) LMP 06/28/2024 SpO2 98% BMI 32.27 kg/m? Physical Exam Vitals and nursing note reviewed. Constitutional: General: She is not in acute distress. Appearance: Normal appearance. She is normal weight. She is not ill-appearing, toxic-appearing or diaphoretic. HENT: Head: Normocephalic and atraumatic. Right Ear: Ear canal and external ear normal. Left Ear: Ear canal and external ear normal. Nose: Congestion present. No rhinorrhea. Mouth/Throat: Mouth: Mucous membranes are moist. Pharynx: Posterior oropharyngeal erythema present. No oropharyngeal exudate. Eyes: General: Right eye: No discharge. Left eye: No discharge. Extraocular Movements: Extraocular movements intact. Conjunctiva/sclera: Conjunctivae normal. Pupils: Pupils are equal, round, and reactive to light. Cardiovascular: Rate and Rhythm: Normal rate and regular rhythm. Pulses: Normal pulses. Heart sounds: Normal heart sounds. No murmur he (more content not included)... Normal [facility] COVID AND INFLUENZA A/B AND RSV PCR, ROUTINEon 11-03-2024 SARS-CoV-2 (COVID-19) RNA MURALI+probe Ql (Unsp spec) SARS-COV-2 (AGENT OF COVID-19) RNA: Not detected INFLUENZA A RNA: Detected INFLUENZA B RNA: Not detected RESPIRATORY SYNCYTIAL VIRUS (RSV) RNA: Not detected Abnormal [facility] Comment on above: Performed By: #### 5 8410-2 #### [facility] CLIA [id number] [address] [place] [address] [place] STREP A MOLECULAR (POC)on Procedural Control Valid [facility] Strep A (POCT) Negative Negative [facility] Basic Metabolic Profile (BMP )on 09-30-2024 BUN/CRE 8.9 RATIO Low 10-[address] [facility] Comment on above: Performed By: #### L 700.8000, L500.2500 #### [facility] [address] [place], [address] CA,Total 11.1 mg/dL High 8.5-10.[address] [facility] Comment on above: Performed By: #### L 700.8000, L500.2500 #### [facility] [address] [place], [address] Chloride [Moles/Vol] 109 mmol/L High 98-107 [facility] Comment on above: Performed By: #### L 700.8000, L500.2500 #### [facility] [address] [place], [address] CO2 [Moles/Vol] 22.0 mmol/L Normal 21.0-32.[address] [facility] Comment on above: Performed By: #### L 700.8000, L500.2500 #### [facility] [address] [place], [address] Creatinine [Mass/Vol] 1.01 mg/dL Normal 0.55-1.02 [facility] Comment on above: Result Comment: The validity of the calculated GFR GFRAA in patients over 70 years has not been determined. Clinical correlation is essential. Performed By: #### L 700.8000, L500.2500 #### [facility] [address] [place], [address] ECRCL 91.22 ml/min Normal [facility] Comment on above: Performed By: #### L 700.8000, L500.2500 #### [facility] [address] [place], [address] EST GFR - AA 82 mL/min Normal >[address] [facility] Comment on above: Result Comment: Afri can [place] GFR Calc Performed By: #### L 700.8000, L500.2500 #### [facility] [address] [place], [address] GAP 10 Normal 5-[address] [facility] Comment on above: Performed By: #### L 700.8000, L500.2500 #### [facility] [address] [place], [address] GFR/1.73 sq M.predicted among non-blacks MDRD (S/P/Bld) [Vol rate/Area] 68 mL/min/{1.73_m2} Normal >[address] [facility] Comment on above: Result Comment: Non- GFR Calc Performed By: #### L 700.8000, L500.2500 #### [facility] [address] [place], [address] Glucose [Mass/Vol] 167 mg/dL High 74-106 [facility] Comment on above: Result Comment: Fast ing Glucose result greater than or equal to 126 mg/dL suggests DIABETES MELLITUS per A.D.A. criteria. Performed By: #### L 700.8000, L500.2500 #### [facility] [address] [place], [address] Potassium [Moles/Vol] 3.7 mmol/L Normal 3.5-5.1 [facility] Comment on above: Result Comment: Slig ht Hemolysis, Result may be falsely increased. Performed By: #### L 700.8000, L500.2500 #### [facility] [address] [place], [address] Sodium [Moles/Vol] 140 mmol/L Normal 136-145 [facility] Comment on above: Performed By: #### L 700.8000, L500.2500 #### [facility] [address] [place] [place], [address] Urea nitrogen [Mass/Vol] 9 mg/dL Normal 7-[address] [facility] Comment on above: Performed By: #### L 700.8000, L500.2500 #### [facility] [address] [place], [address] Emergency Department Summary on 09-30-2024 Emergency Department Summary [facility] Medical Records Department [address] [place] [address] Emergency Department Summary 09/30/24 MR#: [id number] Acct: [id number] Name: JOSHUA CHOUDHARY Rep #: [id number] : 1995 29 From: Christos Esparza MD PCP: Lesa Soler NP-C Status:REG ER Location: ED HPI History of Present Illness Chief Complaint: Anxiety Detail of Chief Complaint: Patient believes she is having anxiety reaction with nausea vomiting. Informant: patient Onset/Context/Timing Onset: Today (Earlier this morning.) Context: Onset with activity, Gradual Onset and Sudden Onset Timing: Continuous and Waxes and wanes Quality: Colicky diffuse pain greater upper quadrants with nausea and vomiting Location: GI and patient reports being anxious. Current Severity: Severe Maximum Severity: Severe Worsened by: Patient believes is due to her anxiety. Relieved by: Nothing Associated Symptoms Associated Symptoms: Thirst, dry mouth, decreased urine output and lightheadedness Narrative Narrative: Patient is a 29-year-old woman. She has polycystic ovarian syndrome. She is uncertain when her last menses was. She is sexually active. She denies fever, chills night sweats. Denies headache, visual, ocular auditory symptoms. She denies cardiac or respiratory symptoms. She denies intolerance to greasy or fried foods. She denies diarrhea. She denies black or maroon- colored stool. She has not noted blood in her emesis or the emesis being coffee-ground in appearance. Patient does endorse daily marijuana use. She also has history of cyclic vomiting. Prior similar symptoms: Yes Recent Illness/Hospitalization: Yes (July 15 seen for abdominal pain by Dr. Mendez. January 2024 for dehydration ) [facility] Medical History Anxiety disorder Cannabis use disorder Cyclic vomiting syndrome PCOS (polycystic ovarian syndrome) Home Medications ???Medication ???Instructions ???Recorded ???Last Taken ???Type metformin 1,000 mg tablet 1,000 mg PO BID 03/28/23 Unknown History duloxetine 30 mg capsule,delayed 30 mg PO DAILY 02/23/24 Unknown History release (Cymbalta) oxycodone-acetaminophen 5 mg-325 1 tab PO Q6H PRN pain 3 days #12 02/23/24 Unknown Rx mg tablet (Percocet) tabs progesterone micronized 200 mg 200 mg PO QHS 02/23/24 Unknown History capsule promethazine 25 mg tablet 25 mg PO TID PRN nausea and 02/23/24 Unknown Rx vomiting 7 days #21 tabs propranolol 80 mg capsule,24 20 mg PO BID PRN anxiety 02/23/24 Unknown History hr,extended release lansoprazole 30 mg capsule,delayed 30 mg PO DAILY #14 caps 07/15/24 Unknown Rx release (Prevacid) ondansetron 4 mg disintegrating 4 mg PO Q8H PRN PRN Nausea #10 tabs 07/15/24 Unknown Rx tablet ondansetron 4 mg disintegrating 4 mg PO Q8H PRN PRN Nausea #10 tabs 09/30/24 Unknown Rx tablet Allergy/AdvReac Type Severity Reaction Status Date / Time No Known Allergies Allergy Verified 09/30/24 16:49 Family History Mother Cancer skin Surgical History right salpingectomy FH: cholecystectomy Social History number of children: 0 current occupational status: employed current occupation: [employer] Smoking Status: Never smoker Smokeless tobacco user: chewing tobacco alcohol intake: current alcohol intake frequency: holidays/special occasions only substance use type: marijuana seatbelt use: always do you feel safe at home: Yes additional social history: [employer] ROS ROS ED Constitutional Constitutional ED: Denies chills, fever(s), subjective or sweats Eyes Eyes: Denies blurry vision or change in vision ENT ENT ED: Denies ear pain or rhinorrhea Cardiovascular Cardiovascular: Denies chest pain or palpitations Respiratory/Chest Respiratory/Chest: Denies cough, dyspnea or dyspnea on exertion Gastrointestinal Gastrointestinal: Reports abdominal pain, nausea and vomiting; Denies constipation, diarrhea or melena Genitourinary Genitourinary ED: Denies dysuria, hematuria or urinary frequency Musculoskeletal Musculoskeletal: Denies arthralgias, back pain or myalgias Integumentary Denies rash Neurologic Neurologic: Reports weakness; Denies headache(s) or paresthesias Hematologic/Lymphatic Hematologic/Lymphatic: Reports systems reviewed and no addt'l complaints, except as documented EXAM Physical Exam Const Vital Signs: 09/30/24 16:48 09/30/24 20:48 Temperature 98.2 F Temperature Source Oral Pulse Rate 75 85 Respiratory Rate 16 16 Blood Pressure 131/95 H 125/74 H Blood Pressure Mean 107 91 Pulse Ox 99 98 Oxygen Deli (more content not included)... Normal [facility] hCG Titer Quant., Serumon HCG QUANT. < 1 Normal 1-[address] [facility] Comment on above: Result Comment: hCG levels with Gestational Age Gestational Age hCG mIU/mL (IU/L) 0.2 - 1 week 5 - 50 1-2 weeks 50 - 500 2-3 weeks 100 - 5000 3-4 weeks 500 - 82234 4-5 weeks 1000 - 69010 5-6 weeks 72004 - 100,000 6-8 weeks 31625 - 200,000 2-3 months 50809 - 100,000 Performed By: #### L 700.8000, L500.2500 #### [facility] [address] [place], [address] [facility] 09-19-2024 [place] Telephone (GIULIANA) JOSHUA CHOUDHARY ([id number]) 1995 F Date Time Provider Department 09/19/24 LESA SOLER During your visit today, we recorded the following information about you: Lesa Soler APRN.CNP 09/19/2024 11:09 PM Signed Please notify patient of lab results. Liver, kidney, pancreas, and thyroid function normal. Blood sugar was normal - 86. A1C normal at 5.5 Blood counts were within normal limits - WBC just slightly high Calcium slightly high Recheck both in 1 month Cholesterol levels were elevated. Total cholesterol was 208. Triglycerides 307. HDL 27. LDL 120. Instruct patient to increase fiber and decrease carbs in their diet. Instruct patient to exercise I recommend walking for 30 minutes 5 days out of the week. No need for cholesterol medication at this time. Patient may choose to take fish oil [id number]. Recheck cholesterol in 6 months. 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 Allergies As of Date: 09/19/2024 (No Known Allergies) Date Reviewed: 09/11/2024 Reviewed by: Staci Givens RD - Fully Assessed Reason for Visit: Results [95] Cmt: labs Problem List As Of Date 09/19/2024 Noted Resolved Abdominal pain, epigastric [R10.13] 05/16/2017 Gallstones [K80.20] 08/28/2017 RUQ pain [R10.11] 09/28/2017 Type 2 diabetes mellitus without complication, *09/03/2024 Encounter Status:Closed by MADELYN DENT on 09/20/24 Normal [facility] CBC panel Auto (Bld)on 09-11 Erythrocyte distribution width (RBC) [Ratio] 13.8 % 11.5 - 15.0 % [facility] Hematocrit (Bld) [Volume fraction] 44.9 % 36.0 - 46.0 % [facility] Hemoglobin (Bld) [Mass/Vol] 14.8 g/dL 11.5 - 15.5 g/dL [facility] Interpretation and review of laboratory results Abnormal [facility] MCH (RBC) [Entitic mass] 29.4 pg 26.0 - 34.0 pg [facility] MCHC (RBC) [Mass/Vol] 33.0 g/dL 30.5 - 36.0 g/dL [facility] MCV (RBC) [Entitic vol] 89.1 fL 80.0 - 100.0 fL [facility] Nucleated RBC (Bld) [#/Vol] NINF [facility] Platelet mean volume (Bld) [Entitic vol] 11.8 fL 9.0 - 12.7 fL [facility] Platelets (Bld) [#/Vol] 243 10*3/uL [facility] RBC (Bld) [#/Vol] 5.04 10*6/uL 3.90 - 5.20 m/uL [facility] WBC (Bld) [#/Vol] 11.48 10*3/uL [facility] Erythrocyte distribution width (RBC) [Ratio] 13.8 % Normal 11.5-15.0 [facility] Comment on above: Order Comment: Speci men Type: BLOOD SPECIMEN Ordering Facility: [facility] Address: [address] [place] [address] Performed By: #### 5 8410-2 #### [facility] CLIA [id number] [address] [place] [address] [place] Hematocrit (Bld) [Volume fraction] 44.9 % Normal 36.0-46.0 [facility] Comment on above: Order Comment: Speci men Type: BLOOD SPECIMEN Ordering Facility: [facility] Address: [address] [place] [address] Performed By: #### 5 8410-2 #### [facility] CLIA [id number] [address] [place] [address] [place] Hemoglobin (Bld) [Mass/Vol] 14.8 g/dL Normal 11.5-15.5 [facility] Comment on above: Order Comment: Speci men Type: BLOOD SPECIMEN Ordering Facility: [facility] Address: [address] [place] [address] Performed By: #### 5 8410-2 #### [facility] CLIA [id number] [address] [place] [address] [place] MCH (RBC) [Entitic mass] 29.4 pg Normal 26.0-34.0 [facility] Comment on above: Order Comment: Speci men Type: BLOOD SPECIMEN Ordering Facility: [facility] Address: [address] [place] [address] Performed By: #### 5 8410-2 #### [facility] CLIA [id number] [address] [place] [address] [place] MCHC (RBC) [Mass/Vol] 33.0 g/dL Normal 30.5-36.0 [facility] Comment on above: Order Comment: Speci men Type: BLOOD SPECIMEN Ordering Facility: [facility] Address: [address] [place] [address] Performed By: #### 5 8410-2 #### [facility] CLIA [id number] [address] [place] [address] [place] MCV (RBC) [Entitic vol] 89.1 fL Normal 80.0-100.0 [facility] Comment on above: Order Comment: Speci men Type: BLOOD SPECIMEN Ordering Facility: [facility] Address: [address] [place] [address] Performed By: #### 5 8410-2 #### [facility] CLIA [id number] [address] [place] [address] [place] Nucleated RBC (Bld) [#/Vol] 10*3/uL Normal <0.01 [facility] Comment on above: Order Comment: Speci men Type: BLOOD SPECIMEN Ordering Facility: [facility] Address: [address] [place] [address] Performed By: #### 5 8410-2 #### [facility] CLIA [id number] [address] [place] [address] [place] Platelet mean volume (Bld) [Entitic vol] 11.8 fL Normal 9.0-12.7 [facility] Comment on above: Order Comment: Speci men Type: BLOOD SPECIMEN Ordering Facility: [facility] Address: [address] [place] [address] Performed By: #### 5 8410-2 #### [facility] CLIA [id number] [address] [place] [address] [place] Platelets (Bld) [#/Vol] 243 10*3/uL Normal 150-400 [facility] Comment on above: Order Comment: Speci men Type: BLOOD SPECIMEN Ordering Facility: [facility] Address: [address] [place] [address] Performed By: #### 5 8410-2 #### [facility] CLIA [id number] [address] [place] [address] [place] RBC (Bld) [#/Vol] 5.04 10*6/uL Normal 3.90-5.20 [facility] Comment on above: Order Comment: Speci men Type: BLOOD SPECIMEN Ordering Facility: [facility] Address: [address] [place] [address] Performed By: #### 5 8410-2 #### [facility] CLIA [id number] [address] [place] [address] [place] WBC (Bld) [#/Vol] 11.48 10*3/uL High 3.70-11.00 [facility] Comment on above: Order Comment: Speci men Type: BLOOD SPECIMEN Ordering Facility: [facility] Address: [address] [place] [address] Performed By: #### 5 8410-2 #### [facility] CLIA [id number] [address] [place] [address] [place] Comprehensive metabolic 2000 panelon 09-11-2024 Albumin [Mass/Vol] 4.5 g/dL 3.9 - 4.9 g/dL [facility] ALP [Catalytic activity/Vol] 62 U/L 34 - 123 U/L [facility] ALT [Catalytic activity/Vol] 26 U/L 7 - 38 U/L [facility] Anion gap [Moles/Vol] 11 mmol/L 8 - 15 mmol/L [facility] AST [Catalytic activity/Vol] 24 U/L 13 - 35 U/L [facility] Bilirubin [Mass/Vol] 0.3 mg/dL 0.2 - 1 .3 mg/dL [facility] Calcium [Mass/Vol] 10.5 mg/dL High 8.5 - 10. 2 mg/dL [facility] Chloride [Moles/Vol] 105 mmol/L 98 - 10 7 mmol/L [facility] CO2 [Moles/Vol] 26 mmol/L 22 - 30 mmol/L [facility] Creatinine [Mass/Vol] 0.88 mg/dL 0.58 - 0.96 mg/dL [facility] GFR/1.73 sq M.predicted among non-blacks MDRD (S/P/Bld) [Vol rate/Area] 90 mL/min/{1.73_m2} - PINF [facility] Comment on above: Estimated Glomerular Filtration Rate (eGFR) is calculated using the 2020 CKD-EPI creatinine equation. This equation utilizes serum creatinine, sex, and age as parameters. The creatinine assay has traceable calibration to isotope dilution-mass spectrometry. Refer to KDIGO guidelines for clinical interpretation. In patients with unstable renal function, e.g. those with acute kidney injury, the eGFR may not accurately reflect actual GFR. Glucose [Mass/Vol] 86 mg/dL 74 - 99 mg/dL [facility] Comment on above: The [place] Diabete s Association (ADA) provides guidance for cutoff values for fasting glucose and random glucose. The ADA defines fasting as no caloric intake for at least 8 hours. Fasting plasma glucose results between 100 to 125 mg/dL indicate increased risk for diabetes (prediabetes). Fasting plasma glucose results greater than or equal to 126 mg/dL meet the criteria for diagnosis of diabetes. In the absence of unequivocal hyperglycemia, results should be confirmed by repeat testing. In a patient with classic symptoms of hyperglycemia or hyperglycemic crisis, random plasma glucose results greater than or equal to 200 mg/dL meet the criteria for diagnosis of diabetes. Reference: Standards of Medical Care in Diabetes 2016, [place] Diabetes Association. Diabetes Care. 2016.39(Suppl 1). Potassium [Moles/Vol] 4.2 mmol/L 3.7 - 5.1 mmol/L [facility] Protein [Mass/Vol] 7.2 g/dL 6.3 - 8.0 g/dL [facility] Sodium [Moles/Vol] 142 mmol/L 136 - 144 mmol/L [facility] Urea nitrogen [Mass/Vol] 5 mg/dL Low 7 - 21 mg/dL [facility] Albumin [Mass/Vol] 4.5 g/dL Normal 3.9-4.9 [facility] Comment on above: Order Comment: Yelena collins Type: BLOOD SPECIMEN Ordering Facility: [facility] Address: [address] [place], [place] [address] Performed By: #### 2 4331-1, 60456-2, 3040-3, 3016-3 #### [facility] CLIA [id number] [address] [place] [address] [place] ALP [Catalytic activity/Vol] 62 U/L Normal 34-123 [facility] Comment on above: Order Comment: Speci men Type: BLOOD SPECIMEN Ordering Facility: [facility] Address: [address] [place] [address] Performed By: #### 2 4331-1, 58886-2, 0-3, 3016-3 #### [facility] CLIA [id number] [address] [place], [place] [address] [place] ALT [Catalytic activity/Vol] 26 U/L Normal 7-38 [facility] Comment on above: Order Comment: Speci men Type: BLOOD SPECIMEN Ordering Facility: [facility] Address: [address] [place] [address] Performed By: #### 2 4331-1, 99639-5, 0-3, 6-3 #### [facility] CLIA [id number] [address] [place], [place] [address] [place] Anion gap [Moles/Vol] 11 mmol/L Normal 8-15 [facility] Comment on above: Order Comment: Speci men Type: BLOOD SPECIMEN Ordering Facility: [facility] Address: [address] [place] [address] Performed By: #### 2 4331-1, 59685-3, 0-3, 3016-3 #### [facility] CLIA [id number] [address] [place] [address] [place] AST [Catalytic activity/Vol] 24 U/L Normal 13-35 [facility] Comment on above: Order Comment: Speci men Type: BLOOD SPECIMEN Ordering Facility: [facility] Address: [address] [place], [place] [address] Performed By: #### 2 4331-1, 34624-5, 3040-3, 3016-3 #### [facility] CLIA [id number] [address] [place], [place] [address] [place] Bilirubin [Mass/Vol] 0.3 mg/dL Normal 0.2-1.3 [facility] Comment on above: Order Comment: Speci men Type: BLOOD SPECIMEN Ordering Facility: [facility] Address: [address] [place] [address] Performed By: #### 2 4331-1, 97140-2, 0-3, 3016-3 #### [facility] CLIA [id number] [address] [place] [address] [place] Calcium [Mass/Vol] 10.5 mg/dL High 8.5-10.2 [facility] Comment on above: Order Comment: Speci men Type: BLOOD SPECIMEN Ordering Facility: [facility] Address: [address] [place] [address] Performed By: #### 2 4331-1, 04484-3, 0-3, 6-3 #### [facility] CLIA [id number] [address] [place] [address] [place] Chloride [Moles/Vol] 105 mmol/L Normal 98-107 [facility] Comment on above: Order Comment: Speci men Type: BLOOD SPECIMEN Ordering Facility: [facility] Address: [address] [place] [address] Performed By: #### 2 4331-1, 82794-1, 0-3, 6-3 #### [facility] CLIA [id number] [address] [place], [place] [address] [place] CO2 [Moles/Vol] 26 mmol/L Normal 22-30 [facility] Comment on above: Order Comment: Speci men Type: BLOOD SPECIMEN Ordering Facility: [facility] Address: [address] [place] [address] Performed By: #### 2 4331-1, 87213-9, 0-3, 3016-3 #### [facility] CLIA [id number] [address] [place] [address] [place] Creatinine [Mass/Vol] 0.88 mg/dL Normal 0.58-0.96 [facility] Comment on above: Order Comment: Yelena collins Type: BLOOD SPECIMEN Ordering Facility: [facility] Address: [address] [place] [address] Performed By: #### 2 4331-1, 89785-3, 3040-3, 3016-3 #### [facility] CLIA [id number] [address] [place] [address] [place] Creatinine and Glomerular filtration rate.predicted panel (S/P/Bld) 90 mL/min/1.73m??? Normal >=60 [facility] Comment on above: Order Comment: Yelena collins Type: BLOOD SPECIMEN Ordering Facility: [facility] Address: [address] [place] [address] Result Comment: Ely mated Glomerular Filtration Rate (eGFR) is calculated using the 2020 CKD-EPI creatinine equation. This equation utilizes serum creatinine, sex, and age as parameters. The creatinine assay has traceable calibration to isotope dilution-mass spectrometry. Refer to KDIGO guidelines for clinical interpretation. In patients with unstable renal function, e.g. those with acute kidney injury, the eGFR may not accurately reflect actual GFR. Performed By: #### 2 4331-1, 39662-7, 3040-3, 3016-3 #### [facility] CLIA [id number] [address] [place] [address] [place] Glucose [Mass/Vol] 86 mg/dL Normal 74-99 [facility] Comment on above: Order Comment: Yelena collins Type: BLOOD SPECIMEN Ordering Facility: [facility] Address: [address] [place] [address] Result Comment: The [place] Diabetes Association (ADA) provides guidance for cutoff values for fasting glucose and random glucose. The ADA defines fasting as no caloric intake for at least 8 hours. Fasting plasma glucose results between 100 to 125 mg/dL indicate increased risk for diabetes (prediabetes). Fasting plasma glucose results greater than or equal to 126 mg/dL meet the criteria for diagnosis of diabetes. In the absence of unequivocal hyperglycemia, results should be confirmed by repeat testing. In a patient with classic symptoms of hyperglycemia or hyperglycemic crisis, random plasma glucose results greater than or equal to 200 mg/dL meet the criteria for diagnosis of diabetes. Reference: Standards of Medical Care in Diabetes 2016, [place] Diabetes Association. Diabetes Care. 2016.39(Suppl 1). Performed By: #### 2 4331-1, 65876-6, 3040-3, 3016-3 #### [facility] CLIA [id number] [address] [place] [address] [place] Potassium [Moles/Vol] 4.2 mmol/L Normal 3.7-5.1 [facility] Comment on above: Order Comment: Speci men Type: BLOOD SPECIMEN Ordering Facility: [facility] Address: [address] [place] [address] Performed By: #### 2 4331-1, 54393-3, 0-3, 3015-3 #### [facility] CLIA [id number] [address] [place] [address] [place] Protein [Mass/Vol] 7.2 g/dL Normal 6.3-8.0 [facility] Comment on above: Order Comment: Speci men Type: BLOOD SPECIMEN Ordering Facility: [facility] Address: [address] [place] [address] Performed By: #### 2 4331-1, 23027-9, 0-3, 6-3 #### [facility] CLIA [id number] [address] [place], [place] [address] [place] Sodium [Moles/Vol] 142 mmol/L Normal 136-144 [facility] Comment on above: Order Comment: Speci men Type: BLOOD SPECIMEN Ordering Facility: [facility] Address: [address] [place] [address] Performed By: #### 2 4331-1, 39205-3, 3040-3, 3016-3 #### [facility] CLIA [id number] [address] [place] [address] [place] Urea nitrogen [Mass/Vol] 5 mg/dL Low 7-21 [facility] Comment on above: Order Comment: Speci men Type: BLOOD SPECIMEN Ordering Facility: [facility] Address: [address] [place] [address] Performed By: #### 2 4331-1, 85107-7, 3040-3, 3016-3 #### [facility] CLIA [id number] [address] [place] [address] [place] HbA1c (Bld)on 09-11-2024 Average glucose Estimated from glycated hemoglobin (Bld) [Mass/Vol] 111 mg/dL [facility] Comment on above: eAG: (Estimated aver age glucose) is a calculated value from HgbA1c and is call center support representative of the average blood glucose level in the last 2-3 month period. HbA1c (Bld) [Mass fraction] 5.5 % 4.3 - 5.6 % [facility] Comment on above: [place] Diabetes As sociation guidelines indicate that patients with HgbA1c in the range 5.7-6.4% are at increased risk for development of diabetes, and intervention by lifestyle modification may be beneficial. HgbA1c greater or equal to 6.5% is considered diagnostic of diabetes. [facility] Average glucose Estimated from glycated hemoglobin (Bld) [Mass/Vol] 111 mg/dL Normal [facility] Comment on above: Order Comment: Yelena men Type: BLOOD SPECIMEN Ordering Facility: [facility] Address: [address] [place] [address] Result Comment: eAG: (Estimated average glucose) is a calculated value from HgbA1c and is call center support representative of the average blood glucose level in the last 2-3 month period. Performed By: #### 5 5454-3 #### [facility] CLIA [id number] [address] [place] [address] [place] HbA1c (Bld) [Mass fraction] 5.5 % Normal 4.3-5.6 [facility] Comment on above: Order Comment: Speci men Type: BLOOD SPECIMEN Ordering Facility: [facility] Address: [address] [place] [address] Result Comment: [place] Diabetes Association guidelines indicate that patients with HgbA1c in the range 5.7-6.4% are at increased risk for development of diabetes, and intervention by lifestyle modification may be beneficial. HgbA1c greater or equal to 6.5% is considered diagnostic of diabetes. Performed By: #### 5 5454-3 #### [facility] CLIA [id number] [address] [place] [address] [place] LIPASEon 09-11-2024 Lipase [Catalytic activity/Vol] 33 U/L 16 - 61 U/L [facility] Lipase SerPl-cCncon 09-11-20 24 Lipase [Catalytic activity/Vol] 33 U/L Normal 16-61 [facility] Comment on above: Order Comment: Yelena dennis Type: BLOOD SPECIMEN Ordering Facility: [facility] Address: [address] [place] [address] Performed By: #### 2 4331-1, 75472-9, 3040-3, 3016-3 #### [facility] CLIA [id number] [address] [place] [address] [place] Lipase [Catalytic activity/V ol]on 09-11-2024 Interpretation and review of laboratory results Normal [facility] Lipid 1996 panelon 4 Cholesterol [Mass/Vol] 208 mg/dL High NINF - 200 mg/dL [facility] Comment on above: <200 mg/dL, Desirabl e 200-239 mg/dL, Borderline high >239 mg/dL, High Cholesterol in HDL [Mass/Vol] 27 mg/dL Low 39 - PINF mg/dL [facility] Comment on above: 40-59 mg/dL, Accepta ble >59 mg/dL, High: Negative risk factor for coronary heart disease <40 mg/dL, Low: Positive risk factor for coronary heart disease Cholesterol in LDL [Mass/Vol] 120 mg/dL High NINF - 100 mg/dL [facility] Comment on above: <100 mg/dL, Optimal 100-129 mg/dL, Near optimal/above optimal 130-159 mg/dL, Borderline high 160-189 mg/dL, High >189 mg/dL, Very high Secondary prevention optimal LDL Cholesterol levels are recommended to be < 70 mg/dL Cholesterol in LDL/Cholesterol in HDL [Mass ratio] 4.44 {ratio} High NINF - 2.54 [facility] Comment on above: Reference: 1. National Cholesterol Education Program ATP III Guideline At-A-Glance Quick Desk Reference: National Heart, Lung, and Blood [place]. National Institutes of Health. 2001: NIH Publication No. 01-3305. 2. An International Atherosclerosis Society position paper: global recommendations for the management of dyslipidemia: executive summary, Atherosclerosis. 2014: 232(2):410-413. Cholesterol in VLDL [Mass/Vol] 61 mg/dL High NINF - 30 mg/dL [facility] Cholesterol non HDL [Mass/Vol] 181 mg/dL High NINF - 130 mg/dL [facility] Comment on above: <130 mg/dL, Optimal 130-159 mg/dL, Near optimal/above optimal 160-189 mg/dL, Borderline high 190-219 mg/dL, High >219 mg/dL, Very high Secondary prevention optimal non HDL Cholesterol levels are recommended to be <100 mg/dL Cholesterol.total/Cho lesterol in HDL [Mass ratio] 7.70 {ratio} High NINF - 5.10 [facility] Fasting Time 12 hrs [facility] Triglyceride [Mass/Vol] 307 mg/dL High NINF - 150 mg/dL [facility] Comment on above: <150 mg/dL, Normal 150-199 mg/dL, Borderline high 200-499 mg/dL, High >499 mg/dL, Very high Cholesterol [Mass/Vol] 208 mg/dL High <200 [facility] Comment on above: Order Comment: Speci men Type: BLOOD SPECIMEN Ordering Facility: [facility] Address: [address] [place] [address] Result Comment: <200 mg/dL, Desirable 200-239 mg/dL, Borderline high >239 mg/dL, High Performed By: #### 2 4331-1, 93423-4, 3040-3, 3016-3 #### [facility] CLIA [id number] [address] [place], [place] [address] [id number], [place] [address] [place] Cholesterol in HDL [Mass/Vol] 27 mg/dL Low >39 [facility] Comment on above: Order Comment: Yelena collins Type: BLOOD SPECIMEN Ordering Facility: [facility] Address: [address] [place] [address] Result Comment: 40-5 9 mg/dL, Acceptable >59 mg/dL, High: Negative risk factor for coronary heart disease <40 mg/dL, Low: Positive risk factor for coronary heart disease Performed By: #### 2 4331-1, 13861-0, 3040-3, 3016-3 #### [facility] CLIA [id number] [address] [place], [place] [address] [address] [place] Cholesterol in LDL [Mass/Vol] 120 mg/dL High <100 [facility] Comment on above: Order Comment: Yelena collins Type: BLOOD SPECIMEN Ordering Facility: [facility] Address: [address] [place] [address] Result Comment: <100 mg/dL, Optimal 100-129 mg/dL, Near optimal/above optimal 130-159 mg/dL, Borderline high 160-189 mg/dL, High >189 mg/dL, Very high Secondary prevention optimal LDL Cholesterol levels are recommended to be < 70 mg/dL Performed By: #### 2 4331-1, 21659-7, 3040-3, 3016-3 #### [facility] CLIA [id number] [address] [place] [address] [place] Cholesterol in LDL/Cholesterol in HDL [Mass ratio] 4.44 {ratio} High <2.54 [facility] Comment on above: Order Comment: Yelena dennis Type: BLOOD SPECIMEN Ordering Facility: [facility] Address: [address] [place] [address] Result Comment: Chanel paulino: 1. National Cholesterol Education Program ATP III Guideline At-A-Glance Quick Desk Reference: National Heart, Lung, and Blood [place]. National Institutes of Health. 2001: NIH Publication No. 01-3305. 2. An International Atherosclerosis Society position paper: global recommendations for the management of dyslipidemia: executive summary, Atherosclerosis. 2014: 232(2):410-413. Performed By: #### 2 4331-1, 08503-4, 3040-3, 3016-3 #### [facility] CLIA [id number] [address] [place] [address] [place] Cholesterol in VLDL [Mass/Vol] 61 mg/dL High <30 [facility] Comment on above: Order Comment: Speci men Type: BLOOD SPECIMEN Ordering Facility: [facility] Address: [address] [place] [address] Performed By: #### 2 4331-1, 79890-8, 3040-3, 3016-3 #### [facility] CLIA [id number] [address] [place] [address] [place] Cholesterol non HDL [Mass/Vol] 181 mg/dL High <130 [facility] Comment on above: Order Comment: Speci men Type: BLOOD SPECIMEN Ordering Facility: [facility] Address: [address] [place] [address] Result Comment: <130 mg/dL, Optimal 130-159 mg/dL, Near optimal/above optimal 160-189 mg/dL, Borderline high 190-219 mg/dL, High >219 mg/dL, Very high Secondary prevention optimal non HDL Cholesterol levels are recommended to be <100 mg/dL Performed By: #### 2 4331-1, 21498-8, 3040-3, 3016-3 #### [facility] CLIA [id number] [address] [place] [address] [place] Cholesterol.total/Cho lesterol in HDL [Mass ratio] 7.70 {ratio} High <5.10 [facility] Comment on above: Order Comment: Speci men Type: BLOOD SPECIMEN Ordering Facility: [facility] Address: [address] [place] [address] Performed By: #### 2 4331-1, 20815-0, 3040-3, 3016-3 #### [facility] CLIA [id number] [address] [place] [address] [place] FASTING TIME 12 hrs Normal [facility] Comment on above: Order Comment: Speci men Type: BLOOD SPECIMEN [facility]ing Facility: [facility] Address: [address] [place] [address] Performed By: #### 2 4331-1, 67864-6, 3040-3, 3016-3 #### [facility] CLIA [id number] [address] [place] [address] [place] Triglyceride [Mass/Vol] 307 mg/dL High <150 [facility] Comment on above: Order Comment: Speci men Type: BLOOD SPECIMEN [facility]ing Facility: [facility] Address: [address] [place] [address] Result Comment: <150 mg/dL, Normal 150-199 mg/dL, Borderline high 200-499 mg/dL, High >499 mg/dL, Very high Performed By: #### 2 4331-1, 49172-3, 3040-3, 3016-3 #### [facility] CLIA [id number] [address] [place] [address] [place] No Panel Informationon 09-11 Interpretation and review of laboratory results Abnormal [facility] THYROID STIMULATING HORMONEo n 09-11-2024 TSH Qn 0.917 m[IU]/L [facility] Comment on above: If the patient is pr egnant, TSH reference range varies by gestational period: First Trimester (weeks 9-12): 0.180-2.990 mIU/L Second Trimester: 0.110-3.980 mIU/L Third Trimester: 0.480-4.710 mIU/L Amadeo Hansen et al. A Practical Approach for the Verifications and Determination of Site- and Trimester-Specific Reference Intervals for Thyroid Function tests in . Thyroid, 2019:29:3:412-420. Jose Antonio Molina, et al. 2017 Guidelines of the [place] Thyroid Association for the Diagnosis and Management of Thyroid Disease during and the . Thyroid, 2017:27:3:315-389. TSH Qnon 09-11-2024 Interpretation and review of laboratory results Normal [facility] TSH SerPl-aCncon 09-11-2024 TSH Qn 0.917 m[IU]/L Normal 0.270-4.20 0 [facility] Comment on above: Order Comment: Speci men Type: BLOOD SPECIMEN [facility]ing Facility: [facility] Address: [address] [place] [address] [place] [address] Result Comment: If t he patient is , TSH reference range varies by gestational period: First Trimester (weeks 9-12): 0.180-2.990 mIU/L Second Trimester: 0.110-3.980 mIU/L Third Trimester: 0.480-4.710 mIU/L Amadeo Hansen et al. A Practical Approach for the Verifications and Determination of Site- and Trimester-Specific Reference Intervals for Thyroid Function tests in . Thyroid, 2019:29:3:412-420. Jose Antonio Molina et al. 2017 Guidelines of the [place] Thyroid Association for the Diagnosis and Management of Thyroid Disease during and the . Thyroid, 2017:27:3:315-389. Performed By: #### 2 4331-1, 46083-1, 3040-3, 3016-3 #### [facility] CLIA [id number] [address] [place] [address] [place] CNOVon 09-03-2024 CNOV Office Visit (TJ LOYOLA) KENRICKJOSHUA ([id number]) 1995 F Date Time Provider Department 09/03/24 1:20 PM LESA SOLER During your visit today, we recorded the following information about you: Temperature Pulse Blood pressure Weight 98.1 degrees 78/minute 108/62 92.1 kg Height 1.676 m Lesa Soler, ROADMASTER.FRICTION WELDING MACHINE OPERATOR 09/22/2024 12:58 AM Signed Subjective Joshua Choudhary is a 29 year old female here today for establish care. I reviewed past medical, surgical, social, and family histories today and updated chart. Allergies, chronic medications, and supplements were also reviewed. HPI Moved back to [place] about 1 year ago Needs PCP Diagnosed with type 2 diabetes about 2-3 years ago Hx PCOS Took metformin for many years - stopped due to wasn't following up with doc Had some GI symptoms with metformin Irregular eating schedule so wasn't being consistent with taking it Got A1C from 9.6 to 6.3 with whole food keto diet Doesn't follow it strictly now but keeping up with it Has a glucometer at home She states she has felt highs and lows with sugars all through her childhood Insatiable hunger for sugar, craves candy Saw YOUTH MINISTER last week - Dr Monique Pap test completed Looking in to fertility treatment for 6 years - tried for good 2 years, still not using BC Right fallopian tube removed age 17 Depression - she is seeing counselor and psychiatrist, Dr Marybel Ortiz 419 Counselor Joshua Zazueta at [facility], will be starting EDMR Hx childhood trauma CPSD responses Having official testing for ADHD Panic disorder Has been focusing on mental health this whole past year Hasn't been able to work this past year She was hospitalized [facility] week Just started new medication 1 week ago - can't recall name of it No family history of thyroid cancer No hx pancreatitis Does not drink alcohol PAST MEDICAL HISTORY Diagnosis Date Cholelithiases PAST SURGICAL HISTORY Procedure Laterality Date COLONOSCOPY FLX DX W/COLLJ SPEC WHEN PFRMD 07/03/2018 Colonoscopy ESOPHAGOGASTRODUODENOSCOPY TRANSORAL DIAGNOSTIC 07/03/2018 EGD LAPAROSCOPY SURG CHOLECYSTECTOMY 10/04/2017 Cholecystectomy, lap Jimenez PAST SURGICAL HISTORY OF Right 2014 rght salpingectomy REMOVAL GALLBLADDER ALLERGIES Patient has no known allergies. MEDICATIONS dicyclomine (BENTYL) 10 mg capsule Take 1 capsule by mouth before meals and at bedtime. (Patient not taking: Reported on 09/03/2024) benzonatate (TESSALON PERLE) 100 mg capsule Take 1-2 capsules tid prn (Patient not taking: Reported on 09/03/2024) guaiFENesin (MUCINEX) 600 mg 12 hr tablet Take 2 tablets by mouth twice daily. (Patient not taking: Reported on 09/03/2024) CRYSELLE 0.3-30 mg-mcg per tablet (Patient not taking: Reported on 09/03/2024) B INFANTIS/B ANI/B CONSUELO/B BIFID (PROBIOTIC 4X ORAL) Take by mouth. (Patient not taking: Reported on 09/03/2024) VIT/IRON FUM/FOLIC AC ( 10/02 ORAL) Take by mouth. (Patient not taking: Reported on 09/03/2024) History reviewed. No pertinent family history. Social History Tobacco Use Smoking status: Never Smokeless tobacco: Never Vaping Use Vaping status: Never Used Substance Use Topics Alcohol use: Not Currently Drug use: Yes Types: Marijuana Comment: daily Review of Systems Constitutional: Positive for diaphoresis and fever. Negative for appetite change, chills, fatigue and unexpected weight change. Couple times over the past year - WBC really high at hospital and had fever Hot at night, sweats a lot at night HENT: Negative for congestion, ear pain, rhinorrhea and sore throat. Eyes: Negative for pain, discharge, itching and visual disturbance. Respiratory: Negative for cough, shortness of breath and wheezing. COPD in her family She does not use tobacco Cardiovascular: Negative for chest pain, palpitations and leg swelling. Gastrointestinal: Positive for diarrhea and nausea. Negative for abdominal pain, constipation and vomiting. Episodes would happen with extreme temperature changes - sudden nausea, red/sweating, hot, then pukes Had 2 severe episodes caused her to go to hospital Has had other more mild episodes Over the past 10 years - it would add up to years out of her life where it would happen every single morning Episodes worse with stress Had gallbladder removed but still having episodes Still felt severely sick/nausea for about 1-2 years after the gallbladder Had EGD in 2018 Stopped smoking cannabis for 3 years - still had symptoms during that time period Tried edibles but it doesn't work at all for her Chronic diarrhea Will see food in her stool Has always had Calibration bite - has to wait because she will get very nausea Genitourinary: Negative for difficulty urinating. Musculoskeletal: Negative for arthralgias. Skin: Negative (more content not included)... Normal [facility] CNOVon 08-28-2024 CNOV Office Visit (OBGYST ) JOSHUA CHOUDHARY ([id number]) 1995 F Date Time Provider Department 08/28/24 9:40 AM MARIO MONIQUE OBGY During your visit today, we recorded the following information about you: Pulse Blood pressure Weight Height 72/minute 108/71 94.3 kg 1.676 m Last Period 06/28/24 Mario Monique MD 08/28/2024 10:27 AM Signed PCOS Joshua is a 29 year old No obstetric history on file. who presents for an annual gynecologic exam without complaints. Patient has history of PCOS. Has been trying to conceive for years without success. Has a history of secondary amenorrhea. Patient is status post salpingectomy. Etiology unclear. OB History No obstetric history on file. PAST MEDICAL HISTORY Diagnosis Date Cholelithiases PAST SURGICAL HISTORY Procedure Laterality Date COLONOSCOPY FLX DX W/COLLJ SPEC WHEN PFRMD 07/03/2018 Colonoscopy ESOPHAGOGASTRODUODENOSCOPY TRANSORAL DIAGNOSTIC 07/03/2018 EGD LAPAROSCOPY SURG CHOLECYSTECTOMY 10/04/2017 Cholecystectomy, lap Jimenez PAST SURGICAL HISTORY OF Right 2014 rght salpingectomy History reviewed. No pertinent family history.SOCIAL HISTORY Social History Tobacco Use Smoking status: Never Smokeless tobacco: Never Vaping Use Vaping status: Never Used Substance Use Topics Alcohol use: Not Currently Drug use: Yes Types: Marijuana Comment: daily REVIEW OF SYSTEMS Abdomen: No bloating, early satiety, indigestion, or increased flatulence. No abdominal pain, nausea, vomiting, diarrhea, or constipation. Bladder: No dysuria, gross hematuria, urinary frequency, urinary urgency, or incontinence. Breast: No breast lumps, nipple d/c, overlying skin changes, redness or skin retraction. Allergies and current medication updated:Yes Field Installer present EXAM: BP 108/71 Pulse 72 Ht 5' 6 (1.68m) Wt 208 lb (94.3kg) LMP 06/28/2024 BMI 33.59 kg/(m2). GENERAL: In no apparent distress HEENT: Normocephalic, BREAST: soft, non-tender, symmetric, no dominant mass, normal nipple-areolar complex, no lymphadenopathy, and no nipple discharge CHEST: Normal inspiratory effort ABDOMEN: soft, non-tender, and no masses PELVIC: external genitalia normal, normal Bartholin's glands, urethra, Belville's glands, no vulvar lesions, no cervical lesions, good vaginal support, normal appearing perineal body and perianal region BIMANUAL: uterus normal size, shape and consistency, no adnexal masses, and non-tender NEURO: alert and oriented x3,exam grossly non-focal PSYCH: Normal mood and judgment ASSESSMENT/PLAN Normal gynecological exam Follow up yearly PCOS. Anovulatory cycles. Rule out tubal factor male factor. Consult placed to RICHELLE Monique MD The sensitive examination was discussed with the Patient or Patient's Authorized Contact Center Consultant. As applicable, any other physician, advance practice provider, medical student, or other health professional student that will be observing or involved in the sensitive examination for educational or training purposes was discussed with the Patient or Authorized Contact Center Consultant. The Patient or Authorized Contact Center Consultant has agreed to proceed with the sensitive examination. (Sensitive examination includes inspection and/or palpation of the breasts, pelvis, prostate and anorectal regions) Allergies As of Date: 08/28/2024 (No Known Allergies) Date Reviewed: 08/28/2024 Reviewed by: Mario Monique MD - Fully Assessed Reason for Visit: Fertility Preservation [4242] Cmt: Wants to talk about fertility Last pap 2 yrs ago, Unsure of period jun or July 2024, first one in a year Primary Visit Diagnosis:Encounter for gynecological examination (general) (routine) without abnormal findings [Z01.419] Other Visit Diagnoses:Screening for malignant neoplasm of cervix [Z12.4] PCOS (polycystic ovarian syndrome) [E28.2] Primary female infertility [N97.9] Order(s):PAP TEST [DNY8858] Order #: [id number]. #:[id number] CONSULT TO INFERTILITY CLINIC [[id number]] Order #: [id number]: 1 FUTURE Prescriptions as of 08/28/2024 - dicyclomine (BENTYL) 10 mg capsule Take 1 capsule by mouth before meals and at bedtime. - benzonatate (TESSALON PERLE) 100 mg capsule Take 1-2 capsules tid prn - guaiFENesin (MUCINEX) 600 mg 12 hr tablet Take 2 tablets by mouth twice daily. - CRYSELLE 0.3-30 mg-mcg per tablet - B INFANTIS/B ANI/B CONSUELO/B BIFID (PROBIOTIC 4X ORAL) Take by mouth. - VIT/IRON FUM/FOLIC AC ( 10/02 ORAL) Take by mouth. Problem List As Of Date 08/28/2024 Noted Resolved Abdominal pain, epigastric [R10.13] 05/16/2017 Gallstones [K80.20] 08/28/2017 RUQ pain [R10.11] 09/28/2017 Disposition: Return in 1 year (on 08/28/2025) for Annual Exam. Follow-up and Disposition History for Encounter Date Provider Department Center 08/28/2024 [id number] MONIQUE Formerly [facility] [place] (more content not included)... Normal [facility] HIGH RISK HUMAN PAPILLOMA WEN (HPV), PCR FOR DETECTION AND GENOTYPINGon 08-28-2024 HPV 16 Ag Ql (Unsp spec) Not detected Normal Not detected [facility] Comment on above: Order Comment: Speci men Type: BLOOD SPECIMEN Ordering Facility: [facility] Address: [address] [place] [address] Performed By: #### 5 8410-2 #### [facility] CLIA [id number] [address] [place] [address] [place] HPV 18 Ag Ql (Unsp spec) Not detected Normal Not detected [facility] Comment on above: Order Comment: Speci men Type: BLOOD SPECIMEN Ordering Facility: [facility] Address: [address] [place] [address] Performed By: #### 5 8410-2 #### [facility] CLIA [id number] [address] [place] [address] [place] HPV 31+33+35+39+45+51+52+ 56+58+59+66+68 DNA MURALI+probe Ql (Cvx) Not detected Normal Not detected [facility] Comment on above: Order Comment: Speci men Type: BLOOD SPECIMEN Ordering Facility: [facility] Address: [address] [place] [address] Result Comment: High Risk HPV Other Type includes HPV types 31, 33, 35, 39, 45, 51, 52, 56, 58, 59, 66 and 68. Performed By: #### 5 8410-2 #### [facility] CLIA [id number] [address] [place] [address] [place] PAP TESTon 08-28-2024 ADEQUACY Satisfactory for interpretation. Normal [facility] Comment on above: Order Comment: Speci men Type: FLUID SPECIMEN Ordering Facility: [facility] Address: [address] [place] [address] Performed By: #### L [id number] #### [facility] CLIA [id number] [address] [place] [address] [place] [facility] CLIA [id number] [address] [place] [address] [place] CASE REPORT Normal [facility] Comment on above: Order Comment: Speci men Type: FLUID SPECIMEN Ordering Facility: [facility] Address: [address] [place] [address] Result Comment: Gyne cologic Cytology Report Case: [id number] Authorizing Provider: Mario Monique MD Collected: 08/28/2024 10:22 AM Ordering Location: OB/Gynecology Received: 08/28/2024 12:10 PM First Screen: Keisha, Keely, CT, ASCP Specimen: Pap Test, ThinPrep, Cervix Performed By: #### L [id number] #### [facility] CLIA [id number] [address] [place] [address] [place] [facility] CLIA [id number] [address] [place] [address] [place] CLINICAL HISTORY, CYTOLOGY, YOUTH MINISTER Routine Exam Normal [facility] Comment on above: Order Comment: Speci men Type: FLUID SPECIMEN Ordering Facility: [facility] Address: [address] [place] [address] Performed By: #### L [id number] #### [facility] CLIA [id number] [address] [place] [address] [place] [facility] CLIA [id number] [address] [place] [address] [place] FINAL PERFORMING LAB Normal [facility] Comment on above: Order Comment: Speci men Type: FLUID SPECIMEN Ordering Facility: [facility] Address: [address] [place] [address] Result Comment: Tech nical component, precision jig grinder screening performed at [facility], [address] [place], [place] [id number] CLIA# [id number] Diagnostic interpretation performed at [facility], [address] [place] [address] CLIA# [id number] Automation Qa Tester: Wu Scott M.D. Performed By: #### L [id number] #### [facility] CLIA [id number] [address] [place] [address] [place] [facility] CLIA [id number] [address] [place] [address] [place] INTERPRETATION, CYTOLOGY, YOUTH MINISTER Normal [facility] Comment on above: Order Comment: Speci men Type: FLUID SPECIMEN Ordering Facility: [facility] Address: [address] [place] [address] Result Comment: Nega tive for intraepithelial lesion or malignancy. Performed By: #### L [id number] #### [facility] CLIA [id number] [address] [place] [address] [place] [facility] CLIA [id number] [address] [place] [address] [place] LMP 06/28/2024 Normal [facility] Comment on above: Order Comment: Speci men Type: FLUID SPECIMEN Ordering Facility: [facility] Address: [address] [place] [address] Performed By: #### L [id number] #### [facility] CLIA [id number] [address] [place] [address] LAB CLIA [id number] [address] [place] [address] [place] PAP DISCLAIMER COMMENT The Pap Smear is a screening test for cervical cancer. False negative results occur with all screening tests, emphasizing the need for rescreening at recommended intervals, and clinical correlation. Normal [facility] Comment on above: Order Comment: Speci men Type: FLUID SPECIMEN Ordering Facility: [facility] Address: [address] [place] [address] Performed By: #### L [id number] #### [facility] CLIA [id number] [address] [place] [address] [place] [facility] CLIA [id number] [address] [place] [address] [place] PAP TRANSPORTATION LEAD COMMENT This specimen has be en analyzed by the ThinPrep Imaging System, an automated imaging and review system, which assists the laboratory in evaluating cells on ThinPrep Pap tests. Following automated imaging, selected zelaya from every slide are reviewed by a precision jig grinder. Normal [facility] Comment on above: Order Comment: Speci men Type: FLUID SPECIMEN Ordering Facility: [facility] Address: [address] [place] [address] Performed By: #### L [id number] #### [facility] CLIA [id number] [address] [place] [address] LAB CLIA [id number] [address] [place] [address] [place] Abdomen/Pelvis W IV Cont ONL Yon 07-15-2024 Abdomen/Pelvis W IV Cont ONLY [facility] Imaging Services [address] [place] [address] Abdomen/Pelvis W IV Cont ONLY MR#: [id number] Acct: [id number] Name: JOSHUA CHOUDHARY Rep #: [id number] : 1995 F 29 From: Braden Golden MD PCP: Care Physician,No Primary Status: REG ER Study: Abdomen/Pelvis W IV Cont ONLY Date of Exam: Exam# [id number] Ordering Dr: Oliver Marley DO :[id number] STUDY: CT ABDOMEN AND PELVIS WITH CONTRAST REASON FOR EXAM: Female, 29 years old. abdominal pain RADIATION DOSAGE (If Supplied By Facility): CTDIvol = ( 16.16 ) mGy, DLP = ( 995.46 ) mGycm TECHNIQUE: Transaxial images were obtained from the dome of the diaphragm to the symphysis pubis without oral contrast. IV 100mL Isovue-370 was administered. Sagittal and coronal images were reconstructed. Individualized dose optimization techniques were used for this CT. COMPARISON: March 29, 2023 FINDINGS: The visualized lung bases are unremarkable. The visualized portions of the heart are within normal limits. Normal liver. Gallbladder has been removed surgically . Normal spleen. Normal pancreas. Normal bilateral adrenal glands. Normal right kidney. Normal left kidney. Normal visualized stomach. Normal small intestine. Minor diverticular changes of the colon without evidence for acute diverticulitis. The appendix is visualized and appears normal. Normal abdominal aorta. Normal inferior vena cava. Normal retroperitoneum. Normal urinary bladder. Normal abdominal wall. Normal osseous structures. CT/Abdomen/Pelvis W IV Cont ONLY IMPRESSION: Minor diverticular changes of the colon without evidence for acute diverticulitis. No evidence for small bowel obstruction or other acute abnormality status post cholecystectomy Electronically Signed: Braden Golden MD at 18:39 EDT , CC: Dr. Oliver Marley DO; No Primary Care Physician Compressor Mechanic Bus: Signed Normal [facility] CBC W/Diff, Automatedon 10-1 4-2024 Absolute Lymph 4.18 X10 3/uL Normal 0.83-4.[address] [facility] Comment on above: Performed By: #### L 100.0100, L503.6005, L700.6800, L501.2450, L500.4050 ####[facility] [address] [place], [address] Absolute Neut 17.5 X10 3/uL High 2.0-7.[address] [facility] Comment on above: Performed By: #### L 100.0100, L503.6005, L700.6800, L501.2450, L500.4050 ####[facility] [address] [place], [address] Basophils/100 WBC (Bld) 0.4 % Normal 0-[address] [facility] Comment on above: Performed By: #### L 100.0100, L503.6005, L700.6800, L501.2450, L500.4050 ####[facility] [address] [place], [address] Eosinophils/100 WBC (Bld) 0.2 % Normal 0-[address] [facility] Comment on above: Performed By: #### L 100.0100, L503.6005, L700.6800, L501.2450, L500.4050 ####[facility] [address] [place], [address] Erythrocyte distribution width (RBC) [Ratio] 13.2 % Normal 11.6-14.[address] [facility] Comment on above: Performed By: #### L 100.0100, L503.6005, L700.6800, L501.2450, L500.4050 ####[facility] [address] [place], [address] Hematocrit (Bld) [Volume fraction] 44.1 % Normal 37-[address] [facility] Comment on above: Performed By: #### L 100.0100, L503.6005, L700.6800, L501.2450, L500.4050 ####[facility] [address] [place], [address] Hemoglobin (Bld) [Mass/Vol] 15.4 g/dL High 12.0-15.[address] [facility] Comment on above: Performed By: #### L 100.0100, L503.6005, L700.6800, L501.2450, L500.4050 ####[facility] [address] [place], [address] IG% 0.700 Normal 0.0-0.[address] [facility] Comment on above: Result Comment: IG% - Immature Granulocytes (promyelocytes, myelocytes and metamyelocytes) > 1% indicates that a LEFT SHIFT is Present. Performed By: #### L 100.0100, L503.6005, L700.6800, L501.2450, L500.4050 ####[facility] [address] [place], [address] Lymphocytes/100 WBC (Bld) 17.8 % Low 19-[address] [facility] Comment on above: Performed By: #### L 100.0100, L503.6005, L700.6800, L501.2450, L500.4050 ####[facility] [address] [place], [address] MCH (RBC) [Entitic mass] 29.7 pg Normal 27.0-32.[address] [facility] Comment on above: Performed By: #### L 100.0100, L503.6005, L700.6800, L501.2450, L500.4050 ####[facility] [address] [place], [address] MCHC (RBC) [Mass/Vol] 34.9 g/dL Normal 32-36 [facility] Comment on above: Performed By: #### L 100.0100, L503.6005, L700.6800, L501.2450, L500.4050 ####[facility] [address] [place], [address] MCV (RBC) [Entitic vol] 85.0 fL Normal 81-[address] [facility] Comment on above: Performed By: #### L 100.0100, L503.6005, L700.6800, L501.2450, L500.4050 ####[facility] [address] [place], [address] Monocytes/100 WBC (Bld) 6.3 % Normal 0-[address] [facility] Comment on above: Performed By: #### L 100.0100, L503.6005, L700.6800, L501.2450, L500.4050 ####[facility] [address] [place], [address] Neutrophils/100 WBC (Bld) 74.6 % High 47-[address] [facility] Comment on above: Performed By: #### L 100.0100, L503.6005, L700.6800, L501.2450, L500.4050 ####[facility] [address] [place], [address] Nucleated RBC (Bld) [#/Vol] 0 10*3/uL Normal 0-[address] [facility] Comment on above: Performed By: #### L 100.0100, L503.6005, L700.6800, L501.2450, L500.4050 ####[facility] [address] [place], [address] Platelet mean volume (Bld) [Entitic vol] 11.9 fL Normal 6.2-12.[address] [facility] Comment on above: Performed By: #### L 100.0100, L503.6005, L700.6800, L501.2450, L500.4050 ####[facility] [address] [place], [address] Platelets (Bld) [#/Vol] 279 10*3/uL Normal 150-[address] [facility] Comment on above: Performed By: #### L 100.0100, L503.6005, L700.6800, L501.2450, L500.4050 ####[facility] [address] [place], [address] RBC (Bld) [#/Vol] 5.19 10*6/uL Normal 4.2-5.4 [facility] Comment on above: Performed By: #### L 100.0100, L503.6005, L700.6800, L501.2450, L500.4050 ####[facility] [address] [place], [address] RDW SD 40.6 fl Normal 35.1-43.[address] [facility] Comment on above: Performed By: #### L 100.0100, L503.6005, L700.6800, L501.2450, L500.4050 ####[facility] [address] [place], [address] WBC (Bld) [#/Vol] 23.5 10*3/uL High 4.4-11.0 [facility] Comment on above: Performed By: #### L 100.0100, L503.6005, L700.6800, L501.2450, L500.4050 ####[facility] [address] [place], [address] Comprehensive Metabolic Prof ilon 07-15-2024 Albumin [Mass/Vol] 4.4 g/dL Normal 3.2-5.0 [facility] Comment on above: Performed By: #### L 100.0100, L503.6005, L700.6800, L501.2450, L500.4050 ####[facility] [address] [place], [address] Albumin/Globulin [Mass ratio] 1.2 {ratio} Normal 0.9-2.[address] [facility] Comment on above: Performed By: #### L 100.0100, L503.6005, L700.6800, L501.2450, L500.4050 ####[facility] [address] [place], [address] ALK P 56 U/L Normal 45-[address] [facility] Comment on above: Performed By: #### L 100.0100, L503.6005, L700.6800, L501.2450, L500.4050 ####[facility] [address] [place], [address] ALT [Catalytic activity/Vol] 47 U/L Normal 13-[address] [facility] Comment on above: Performed By: #### L 100.0100, L503.6005, L700.6800, L501.2450, L500.4050 ####[facility] [address] [place], [address] AST [Catalytic activity/Vol] 31 U/L Normal 15-[address] [facility] Comment on above: Performed By: #### L 100.0100, L503.6005, L700.6800, L501.2450, L500.4050 ####[facility] [address] [place], [address] Bilirubin [Mass/Vol] 2.20 mg/dL High 0.20-1.00 [facility] Comment on above: Result Comment: For patients on eltrombopag therapy, use of Dimension [place] TBIL is not recommended. Performed By: #### L 100.0100, L503.6005, L700.6800, L501.2450, L500.4050 ####[facility] [address] [place], [address] BUN/CRE 19.3 RATIO Normal 10-[address] [facility] Comment on above: Performed By: #### L 100.0100, L503.6005, L700.6800, L501.2450, L500.4050 ####[facility] [address] [place], [address] CA,Total 10.9 mg/dL High 8.5-10.[address] [facility] Comment on above: Performed By: #### L 100.0100, L503.6005, L700.6800, L501.2450, L500.4050 ####[facility] [address] [place], [address] Chloride [Moles/Vol] 101 mmol/L Normal 98-107 [facility] Comment on above: Performed By: #### L 100.0100, L503.6005, L700.6800, L501.2450, L500.4050 ####[facility] [address] [place], [address] CO2 [Moles/Vol] 29.0 mmol/L Normal 21.0-32.[address] [facility] Comment on above: Performed By: #### L 100.0100, L503.6005, L700.6800, L501.2450, L500.4050 ####[facility] [address] [place], [address] Creatinine [Mass/Vol] 0.99 mg/dL Normal 0.55-1.02 [facility] Comment on above: Result Comment: The validity of the calculated GFR GFRAA in patients over 70 years has not been determined. Clinical correlation is essential. Performed By: #### L 100.0100, L503.6005, L700.6800, L501.2450, L500.4050 ####[facility] [address] [place], [address] ECRCL 94.64 ml/min Normal [facility] Comment on above: Performed By: #### L 100.0100, L503.6005, L700.6800, L501.2450, L500.4050 ####[facility] [address] [place], [address] EST GFR - AA 84 mL/min Normal >[address] [facility] Comment on above: Result Comment: Afri can [place] GFR Calc Performed By: #### L 100.0100, L503.6005, L700.6800, L501.2450, L500.4050 ####[facility] [address] [place], [address] GAP 6 Normal 5-[address] [facility] Comment on above: Performed By: #### L 100.0100, L503.6005, L700.6800, L501.2450, L500.4050 ####[facility] [address] [place], [address] GFR/1.73 sq M.predicted among non-blacks MDRD (S/P/Bld) [Vol rate/Area] 70 mL/min/{1.73_m2} Normal >[address] [facility] Comment on above: Result Comment: Non- GFR Calc Performed By: #### L 100.0100, L503.6005, L700.6800, L501.2450, L500.4050 ####[facility] [address] [place], [address] Globulin (S) [Mass/Vol] 3.8 g/dL Normal 2.2-4.[address] [facility] Comment on above: Performed By: #### L 100.0100, L503.6005, L700.6800, L501.2450, L500.4050 ####[facility] [address] [place], [address] Glucose [Mass/Vol] 119 mg/dL High 74-106 [facility] Comment on above: Result Comment: Fast ing Glucose result from 100 to 125 mg/dL suggests IMPAIRED HOMEOSTASIS per A.D.A. criteria. Performed By: #### L 100.0100, L503.6005, L700.6800, L501.2450, L500.4050 ####[facility] [address] [place], [address] Potassium [Moles/Vol] 3.0 mmol/L Low 3.5-5.1 [facility] Comment on above: Performed By: #### L 100.0100, L503.6005, L700.6800, L501.2450, L500.4050 ####[facility] [address] [place], [address] Sodium [Moles/Vol] 136 mmol/L Normal 136-145 [facility] Comment on above: Performed By: #### L 100.0100, L503.6005, L700.6800, L501.2450, L500.4050 ####[facility] [address] [place], [address] T PROT 8.2 g/dL Normal 6.4-8.[address] [facility] Comment on above: Performed By: #### L 100.0100, L503.6005, L700.6800, L501.2450, L500.4050 ####[facility] [address] [place], [address] Urea nitrogen [Mass/Vol] 19 mg/dL High 7-[address] [facility] Comment on above: Performed By: #### L 100.0100, L503.6005, L700.6800, L501.2450, L500.4050 ####[facility] [address] [place], [address] Emergency Department Summary on 07-15-[address] [facility] Medical Records Department [address] [place] [address] Emergency Department Summary 07/15/24 MR#: [id number] Acct: [id number] Name: JOSHUA CHOUDHARY Rep #: [id number] : 1995 29 From: Oliver Marley DO PCP: Care Physician,No Primary Status:DEP ER Location: ED HPI History of Present Illness Chief Complaint: Nausea/Vomiting Detail of Chief Complaint: Nausea and vomiting Informant: patient Narrative Narrative: Patient presents to the emergency department with complaint of nausea and vomiting. Patient states that she traveled to [facility] 3 days ago and drank heavily that night. The following day she started vomiting and had vomited multiple times and had some bright red blood noted in the vomit. Patient states that she continues to vomit although it has lessened. She describes some upper abdomen discomfort as well. She was seen in urgent care and referred to the emergency department. Patient tells me she has had prior cholecystectomy. Patient tells me she started her menstrual period today but her periods are very irregular and that she has PCOS and sometimes she can go 6 months without a period. Patient also has not had a bowel movement in about 4 days which is unusual for her but she is not eating very much. Patient denies any fevers. Patient has taken Pepto-Bismol at some point she had some black emesis. Patient states that she is a daily marijuana smoker. [facility] Medical History PCOS (polycystic ovarian syndrome) Home Medications ???Medication ???Instructions ???Recorded ???Last Taken ???Type metformin 1,000 mg tablet 1,000 mg PO BID 03/28/23 Unknown History duloxetine 30 mg capsule,delayed 30 mg PO DAILY 02/23/24 Unknown History release (Cymbalta) oxycodone-acetaminophen 5 mg-325 1 tab PO Q6H PRN pain 3 days #12 02/23/24 Unknown Rx mg tablet (Percocet) tabs progesterone micronized 200 mg 200 mg PO QHS 02/23/24 Unknown History capsule promethazine 25 mg tablet 25 mg PO TID PRN nausea and 02/23/24 Unknown Rx vomiting 7 days #21 tabs propranolol 80 mg capsule,24 20 mg PO BID PRN anxiety 02/23/24 Unknown History hr,extended release lansoprazole 30 mg capsule,delayed 30 mg PO DAILY #14 caps 07/15/24 Unknown Rx release (Prevacid) ondansetron 4 mg disintegrating 4 mg PO Q8H PRN PRN Nausea #10 tabs 07/15/24 Unknown Rx tablet Allergy/AdvReac Type Severity Reaction Status Date / Time No Known Allergies Allergy Verified 07/15/24 15:15 Family History (Updated 06/26/19 @ 14:12 by Angelic Kowalski) Mother Cancer skin Surgical History FH: cholecystectomy right salpingectomy Social History number of children: 0 current occupational status: employed current occupation: [employer] Smoking Status: Never smoker Smokeless tobacco user: chewing tobacco alcohol intake: current alcohol intake frequency: holidays/special occasions only substance use type: marijuana seatbelt use: always do you feel safe at home: Yes additional social history: [employer] ROS ROS ED Review of Systems ROS Unobtainable: other Constitutional Constitutional ED: Reports lethargy; Denies chills, fever(s), sweats or weight loss Eyes Eyes: Denies blurry vision, change in vision or diplopia ENT ENT ED: Denies rhinorrhea or sore throat Cardiovascular Cardiovascular: Denies chest pain, orthopnea or racing heartbeat Respiratory/Chest Respiratory/Chest: Denies cough, dyspnea, dyspnea on exertion, orthopnea or sputum Gastrointestinal Gastrointestinal: Reports abdominal pain, constipation, nausea and vomiting; Denies diarrhea Genitourinary Genitourinary ED: Denies dysuria, hematuria or urinary frequency Musculoskeletal Musculoskeletal: Denies arthralgias, back pain, myalgias or neck pain Integumentary Denies abscess, Abrasions or rash Neurologic Neurologic: Denies headache(s) or weakness Psychiatric Psychiatric: Denies anxiety, depression or suicidal thoughts Endocrine Endocrinology: Denies polydipsia, polyphagia or polyuria Hematologic/Lymphatic Hematologic/Lymphatic: Denies easy bleeding, easy bruising or lymphadenopathy Allergic/Immunologic Allergic/Immunologic ED: Denies mouth swelling, tongue swelling or urticaria EXAM Physical Exam Const Vital Signs: 07/15/24 15:15 07/15/24 17:15 Temperature 96.8 F L Temperature Source Temporal Pulse Rate 67 63 Respiratory Rate 15 Blood Pressure 125/71 H 112/64 Blood Pressure Mean 89 80 Pulse Ox 98 Oxygen Delivery Method Room Air Room Air Positive well nourished and well developed General Appearance ED: well d (more content not included)... Normal [facility] Lactic Acidon 07-15-2024 Lactate [Moles/Vol] 1.2 mmol/L Normal 0.4-1.9 [facility] Comment on above: Order Comment: Y Performed By: #### L 100.0100, L503.6005, L700.6800, L501.2450, L500.4050 ####[facility] [address] [place], [place], [id number] Lipaseon 07-15-2024 Lipase [Catalytic activity/Vol] 43 U/L Normal 13-[address] [facility] Comment on above: Result Comment: Jose porter note: LIPASE revised reference range effective 23. New Lipase methodology. Expected to produce lower values than the previous assay method. NEW Reference Range: 13 - 75 U/L Performed By: #### L 100.0100, L503.6005, L700.6800, L501.2450, L500.4050 ####[facility] [address] [place], [place], [id number] ,Serum,hCG Quali.on 07-15-2024 HCG, SERUM QUAL Negative Normal [facility] Comment on above: Performed By: #### L 100.0100, L503.6005, L700.6800, L501.2450, L500.4050 ####[facility] [address] [place], [place], [id number] Urinalysis, Completeon 07-15 AMORPHOUS 1+ URATE Normal [facility] Comment on above: Order Comment: COLLE CTOR TO SPECIFY Performed By: #### L 400.0001 ####[facility] [address] [place], [address] EPI,SQUAMOUS 0-5 SEEN Normal 5-[address] [facility] Comment on above: Order Comment: COLLE CTOR TO SPECIFY Performed By: #### L 400.0001 ####[facility] [address] [place], [address] RBC 5-10 SEEN Normal 0-[address] [facility] Comment on above: Order Comment: COLLE CTOR TO SPECIFY Performed By: #### L 400.0001 ####[facility] [address] [place], [address] WBC 0-5 SEEN Normal 0-[address] [facility] Comment on above: Order Comment: XI CTOR TO SPECIFY Performed By: #### L 400.0001 ####[facility] [address] [place], [address] BACTERIA 0 SEEN Normal None Seen [facility] Comment on above: Order Comment: XI CTOR TO SPECIFY Performed By: #### L 400.0001 ####[facility] [address] [place], [address] Mucus Ql (Urine sed) 0 SEEN Normal [facility] Comment on above: Order Comment: XI CTOR TO SPECIFY Performed By: #### L 400.0001 ####[facility] [address] [place], [address] Basic Metabolic Profile (BMP )on 02-23-2024 BUN/CRE 11.7 RATIO Normal 10-[address] [facility] Comment on above: Performed By: #### L 700.6800, L500.2500, L500.3400, L100.0100, L501.2450, L501.5200 #### [facility] [address] [place], [address] CA,Total 11.0 mg/dL High 8.5-10.[address] [facility] Comment on above: Performed By: #### L 700.6800, L500.2500, L500.3400, L100.0100, L501.2450, L501.5200 #### [facility] [address] [place], [address] Chloride [Moles/Vol] 103 mmol/L Normal 98-107 [facility] Comment on above: Performed By: #### L 700.6800, L500.2500, L500.3400, L100.0100, L501.2450, L501.5200 #### [facility] [address] [place], [address] CO2 [Moles/Vol] 21.0 mmol/L Normal 21.0-32.[address] [facility] Comment on above: Performed By: #### L 700.6800, L500.2500, L500.3400, L100.0100, L501.2450, L501.5200 #### [facility] [address] [place], [address] Creatinine [Mass/Vol] 1.03 mg/dL High 0.55-1.02 [facility] Comment on above: Result Comment: The validity of the calculated GFR GFRAA in patients over 70 years has not been determined. Clinical correlation is essential. Performed By: #### L 700.6800, L500.2500, L500.3400, L100.0100, L501.2450, L501.5200 #### [facility] [address] [place], [address] EST GFR - AA 80 mL/min Normal >[address] [facility] Comment on above: Result Comment: Afri can [place] GFR Calc Performed By: #### L 700.6800, L500.2500, L500.3400, L100.0100, L501.2450, L501.5200 #### [facility] [address] [place], [address] GAP 13 Normal 5-[address] [facility] Comment on above: Performed By: #### L 700.6800, L500.2500, L500.3400, L100.0100, L501.2450, L501.5200 #### [facility] [address] [place], [address] GFR/1.73 sq M.predicted among non-blacks MDRD (S/P/Bld) [Vol rate/Area] 66 mL/min/{1.73_m2} Normal >[address] [facility] Comment on above: Result Comment: Non- GFR Calc Performed By: #### L 700.6800, L500.2500, L500.3400, L100.0100, L501.2450, L501.5200 #### [facility] [address] [place], [address] Glucose [Mass/Vol] 174 mg/dL High 74-106 [facility] Comment on above: Result Comment: Fast ing Glucose result greater than or equal to 126 mg/dL suggests DIABETES MELLITUS per A.D.A. criteria. Performed By: #### L 700.6800, L500.2500, L500.3400, L100.0100, L501.2450, L501.5200 #### [facility] [address] [place], [address] Potassium [Moles/Vol] 4.1 mmol/L Normal 3.5-5.1 [facility] Comment on above: Result Comment: Slig ht Hemolysis, Result may be falsely increased. Performed By: #### L 700.6800, L500.2500, L500.3400, L100.0100, L501.2450, L501.5200 #### [facility] [address] [place], [address] Sodium [Moles/Vol] 137 mmol/L Normal 136-145 [facility] Comment on above: Performed By: #### L 700.6800, L500.2500, L500.3400, L100.0100, L501.2450, L501.5200 #### [facility] [address] [place], [address] Urea nitrogen [Mass/Vol] 12 mg/dL Normal 7-[address] [facility] Comment on above: Performed By: #### L 700.6800, L500.2500, L500.3400, L100.0100, L501.2450, L501.5200 #### [facility] [address] [place], [address] CBC W/Diff, Automatedon 05-2 -2023 Absolute Lymph 2.52 X10 3/uL Normal 0.83-4.[address] [facility] Comment on above: Performed By: #### L 700.6800, L500.2500, L500.3400, L100.0100, L501.2450, L501.5200 #### [facility] [address] [place], [address] Absolute Neut 18.4 X10 3/uL High 2.0-7.[address] [facility] Comment on above: Performed By: #### L 700.6800, L500.2500, L500.3400, L100.0100, L501.2450, L501.5200 #### [facility] [address] [place], [address] Basophils/100 WBC (Bld) 0.3 % Normal 0-[address] [facility] Comment on above: Performed By: #### L 700.6800, L500.2500, L500.3400, L100.0100, L501.2450, L501.5200 #### [facility] [address] [place], [address] Eosinophils/100 WBC (Bld) 0.1 % Normal 0-[address] [facility] Comment on above: Performed By: #### L 700.6800, L500.2500, L500.3400, L100.0100, L501.2450, L501.5200 #### [facility] [address] [place], [address] Erythrocyte distribution width (RBC) [Ratio] 13.0 % Normal 11.6-14.[address] [facility] Comment on above: Performed By: #### L 700.6800, L500.2500, L500.3400, L100.0100, L501.2450, L501.5200 #### [facility] [address] [place], [address] Hematocrit (Bld) [Volume fraction] 40.0 % Normal 37-[address] [facility] Comment on above: Performed By: #### L 700.6800, L500.2500, L500.3400, L100.0100, L501.2450, L501.5200 #### [facility] [address] [place], [address] Hemoglobin (Bld) [Mass/Vol] 13.7 g/dL Normal 12.0-15.[address] [facility] Comment on above: Performed By: #### L 700.6800, L500.2500, L500.3400, L100.0100, L501.2450, L501.5200 #### [facility] [address] [place], [address] IG% 0.800 Normal 0.0-0.[address] [facility] Comment on above: Result Comment: IG% - Immature Granulocytes (promyelocytes, myelocytes and metamyelocytes) > 1% indicates that a LEFT SHIFT is Present. Performed By: #### L 700.6800, L500.2500, L500.3400, L100.0100, L501.2450, L501.5200 #### [facility] [address] [place], [address] Lymphocytes/100 WBC (Bld) 11.6 % Low 19-[address] [facility] Comment on above: Performed By: #### L 700.6800, L500.2500, L500.3400, L100.0100, L501.2450, L501.5200 #### [facility] [address] [place], [address] MCH (RBC) [Entitic mass] 28.9 pg Normal 27.0-32.[address] [facility] Comment on above: Performed By: #### L 700.6800, L500.2500, L500.3400, L100.0100, L501.2450, L501.5200 #### [facility] [address] [place], [address] MCHC (RBC) [Mass/Vol] 34.3 g/dL Normal 32-36 [facility] Comment on above: Performed By: #### L 700.6800, L500.2500, L500.3400, L100.0100, L501.2450, L501.5200 #### [facility] [address] [place], [address] MCV (RBC) [Entitic vol] 84.4 fL Normal 81-[address] [facility] Comment on above: Performed By: #### L 700.6800, L500.2500, L500.3400, L100.0100, L501.2450, L501.5200 #### [facility] [address] [place], [address] Monocytes/100 WBC (Bld) 2.7 % Normal 0-[address] [facility] Comment on above: Performed By: #### L 700.6800, L500.2500, L500.3400, L100.0100, L501.2450, L501.5200 #### [facility] [address] [place], [address] Neutrophils/100 WBC (Bld) 84.5 % High 47-[address] [facility] Comment on above: Performed By: #### L 700.6800, L500.2500, L500.3400, L100.0100, L501.2450, L501.5200 #### [facility] [address] [place], [address] Nucleated RBC (Bld) [#/Vol] 0 10*3/uL Normal 0-[address] [facility] Comment on above: Performed By: #### L 700.6800, L500.2500, L500.3400, L100.0100, L501.2450, L501.5200 #### [facility] [address] [place], [address] Platelet mean volume (Bld) [Entitic vol] 11.9 fL Normal 6.2-12.[address] [facility] Comment on above: Performed By: #### L 700.6800, L500.2500, L500.3400, L100.0100, L501.2450, L501.5200 #### [facility] [address] [place], [address] Platelets (Bld) [#/Vol] 283 10*3/uL Normal 150-[address] [facility] Comment on above: Performed By: #### L 700.6800, L500.2500, L500.3400, L100.0100, L501.2450, L501.5200 #### [facility] [address] [place], [address] RBC (Bld) [#/Vol] 4.74 10*6/uL Normal 4.2-5.4 [facility] Comment on above: Performed By: #### L 700.6800, L500.2500, L500.3400, L100.0100, L501.2450, L501.5200 #### [facility] [address] [place], [address] RDW SD 39.8 fl Normal 35.1-43.[address] [facility] Comment on above: Performed By: #### L 700.6800, L500.2500, L500.3400, L100.0100, L501.2450, L501.5200 #### [facility] [address] [place], [address] WBC (Bld) [#/Vol] 21.8 10*3/uL High 4.4-11.0 [facility] Comment on above: Performed By: #### L 700.6800, L500.2500, L500.3400, L100.0100, L501.2450, L501.5200 #### [facility] [address] [place], [address] Emergency Department Summary on 02-23-[address] [facility] Medical Records Department [address] [place] [address] Emergency Department Summary 02/23/24 MR#: [id number] Acct: [id number] Name: JOSHUA CHOUDHARY Rep #: [id number] : 1995 29 From: Nolan Cervantes DO PCP: Care Physician,No Primary Status:REG ER Location: ED HPI History of Present Illness Chief Complaint: Nausea/Vomiting/Diarrhea Informant: patient and spouse/S.O. Narrative Narrative: Patient is a 29-year-old female with past medical history of PCOS and previous cholelithiasis requiring cholecystectomy. She states beginning afternoon she developed generalized abdominal discomfort with bouts of nausea vomiting and diarrhea. She states she has had subjective fevers and chills with this. She denies any known sick contacts. She denies any travel outside the country or recent antibiotic use. She states has been no new medications. She denies any blood or discoloration in either the emesis or stool. However she has not been able to keep anything down for approximately 24 hours and secondary to his comes to the hospital for evaluation [facility] Medical History PCOS (polycystic ovarian syndrome) Home Medications ???Medication ???Instructions ???Recorded ???Last Taken ???Type metformin 1,000 mg tablet 1,000 mg PO BID 03/28/23 Unknown History duloxetine 30 mg capsule,delayed 30 mg PO DAILY 02/23/24 Unknown History release (Cymbalta) oxycodone-acetaminophen 5 mg-325 1 tab PO Q6H PRN pain 3 days #12 02/23/24 Unknown Rx mg tablet (Percocet) tabs progesterone micronized 200 mg 200 mg PO QHS 02/23/24 Unknown History capsule promethazine 25 mg tablet 25 mg PO TID PRN nausea and 02/23/24 Unknown Rx vomiting 7 days #21 tabs propranolol 80 mg capsule,24 20 mg PO BID PRN anxiety 02/23/24 Unknown History hr,extended release Allergy/AdvReac Type Severity Reaction Status Date / Time No Known Allergies Allergy Verified 02/23/24 04:50 Family History (Updated 06/26/19 @ 14:12 by Angelic Kowalski) Mother Cancer skin Surgical History FH: cholecystectomy right salpingectomy Social History number of children: 0 current occupational status: employed current occupation: [employer] Smoking Status: Current some day smoker tobacco type: cigarettes Smokeless tobacco user: chewing tobacco alcohol intake: current alcohol intake frequency: holidays/special occasions only substance use type: marijuana seatbelt use: always do you feel safe at home: Yes additional social history: [employer] ROS ROS ED Constitutional Constitutional ED: Reports chills, fever(s) and subjective ENT ENT ED: Denies sore throat Cardiovascular Cardiovascular: Denies chest pain, palpitations or racing heartbeat Respiratory/Chest Respiratory/Chest: Denies cough or dyspnea Gastrointestinal Gastrointestinal: Reports abdominal pain, diarrhea, nausea and vomiting; Denies melena Genitourinary Genitourinary ED: Denies dysuria or hematuria Musculoskeletal Musculoskeletal: Reports myalgias Integumentary Denies rash Neurologic Neurologic: Denies headache(s) Hematologic/Lymphatic Hematologic/Lymphatic: Denies easy bleeding or easy bruising EXAM Physical Exam Const Vital Signs: 02/23/24 04:47 Temperature 97.4 F L Temperature Source Temporal Pulse Rate 67 Respiratory Rate 18 Blood Pressure 131/88 H Blood Pressure Mean 102 Pulse Ox 99 Oxygen Delivery Method Room Air Positive well nourished, well developed and obese General Appearance ED: well developed; Negative for pallor Nutritional Appearance: obese HEENT Reports dry mucous membranes HEENT Narrative: Mucous membranes are dry and tacky No tongue or lip swelling no oral lesions no airway edema or compromise No signs of infection noted in the posterior pharynx Mouth ED: Yes dry mucous membranes Mouth: dry mucous membranes Eyes PERRL and EOMs intact bilaterally General Eye ED: Negative for scleral icterus Neck supple Resp normal respiratory effort and clear to auscultation bilaterally Cardio regular rate and regular rhythm Rate: other Other Details: Heart is regular rate and rhythm without murmurs rubs or gallops Radial and carotid pulses are equal and symmetric GI non-distended GI Narrative: Abdomen is soft and nondistended with hyperactive bowel sounds. There is mild diffuse pain on palpation without voluntary guarding or rigidity. No pulsatile mass or fluid wave. Auscultation: hyperactive bowel sounds Palpation: soft Back/Spine no CVA tenderness Extremity normal to inspection Neuro oriented x3, CN' (more content not included)... Normal [facility] Lipaseon 02-23-2024 Lipase [Catalytic activity/Vol] 29 U/L Normal 13-[address] [facility] Comment on above: Result Comment: Jose porter note: LIPASE revised reference range effective 23. New Lipase methodology. Expected to produce lower values than the previous assay method. NEW Reference Range: 13 - 75 U/L Performed By: #### L 700.6800, L500.2500, L500.3400, L100.0100, L501.2450, L501.5200 ####[facility] [id number] [place], [place], [id number] Liver Profileon 02-23-2024 Albumin [Mass/Vol] 4.3 g/dL Normal 3.2-5.0 [facility] Comment on above: Performed By: #### L 700.6800, L500.2500, L500.3400, L100.0100, L501.2450, L501.5200 #### [facility] [address] [place], [place], [id number] ALK P 55 U/L Normal 45-[address] [facility] Comment on above: Performed By: #### L 700.6800, L500.2500, L500.3400, L100.0100, L501.2450, L501.5200 #### [facility] [address] [place], [address] ALT [Catalytic activity/Vol] 61 U/L High 13-[address] [facility] Comment on above: Performed By: #### L 700.6800, L500.2500, L500.3400, L100.0100, L501.2450, L501.5200 #### [facility] [address] [place], [address] AST [Catalytic activity/Vol] 44 U/L High 15-[address] [facility] Comment on above: Result Comment: Slig ht Hemolysis, Result may be falsely increased. Performed By: #### L 700.6800, L500.2500, L500.3400, L100.0100, L501.2450, L501.5200 #### [facility] [address] [place], [address] Bilirubin [Mass/Vol] 1.40 mg/dL High 0.20-1.00 [facility] Comment on above: Result Comment: For patients on eltrombopag therapy, use of Dimension [place] TBIL is not recommended. Performed By: #### L 700.6800, L500.2500, L500.3400, L100.0100, L501.2450, L501.5200 #### [facility] [address] [place], [address] Bilirubin.direct [Mass/Vol] 0.24 mg/dL Normal 0.00-0.[address] [facility] Comment on above: Performed By: #### L 700.6800, L500.2500, L500.3400, L100.0100, L501.2450, L501.5200 #### [facility] [address] [place], [address] Globulin (S) [Mass/Vol] 4.1 g/dL Normal 2.2-4.[address] [facility] Comment on above: Performed By: #### L 700.6800, L500.2500, L500.3400, L100.0100, L501.2450, L501.5200 #### [facility] [address] [place], [address] T PROT 8.4 g/dL High 6.4-8.[address] [facility] Comment on above: Performed By: #### L 700.6800, L500.2500, L500.3400, L100.0100, L501.2450, L501.5200 #### [facility] [address] [place], [address] Magnesiumon 02-23-2024 Magnesium [Mass/Vol] 1.9 mg/dL Normal 1.6-2.6 [facility] Comment on above: Result Comment: Slig ht Hemolysis, Result may be falsely increased. Performed By: #### L 700.6800, L500.2500, L500.3400, L100.0100, L501.2450, L501.5200 ####[facility] [address] [place], [address] ,Serum,hCG Quali.on 02-23-2024 HCG, SERUM QUAL Negative Normal [facility] Comment on above: Performed By: #### L 700.6800, L500.2500, L500.3400, L100.0100, L501.2450, L501.5200 #### [facility] [address] [place], [address] Glucose Glucometer (BldC) [M ass/Vol]Ordered By: Ry James on 03-30-2023 Glucose [Mass/Vol] 121 mg/dL 74-106 [facility] Comment on above: MANAGEMENT OF PATIEN T CARE PER NURSING PROTOCOL Absolute lymphocyte countOrd ered By: Andres Loyola on 03-29-2023 Lymphocytes Auto (Unsp spec) [#/Vol] 4.08 10*3/uL 0.83-4.[address] [facility] Amorphous sediment detection in urine sediment by light microscopyOrdered By: Andres Loyola on 03-29-2023 Amorphous sediment LM Ql (Urine sed) 3+ [facility] Basophil percentageOrdered B y: Andres Loyola on 03-29-2023 Basophil percentage 0 SEEN /hpf 0-5 [facility] Basophils/100 WBC (Bld) 0.4 % 0-[address] [facility] Eosinophils/100 WBC (Bld) 0.4 % 0-[address] [facility] Neutrophils (Bld) [#/Vol] 11.2 10*3/uL 2.0-7.[address] [facility] Neutrophils/100 WBC (Bld) 67.3 % 47-[address] [facility] WBC (Bld) [#/Vol] 16.6 10*3/uL 4.4-11.0 [facility] Bilirubin Test strip Ql (U)O rdered By: Andres Loyola on 03-29-2023 Bilirubin Ql (U) Negative Negative [facility] Blood erythrocytes count (nu mber/volume)Ordered By: Andres Loyola on 03-29-2023 RBC (Bld) [#/Vol] 4.76 10*6/uL 4.2-5.4 [facility] Blood hemoglobin measurement (mass/volume)Ordered By: Andres Loyola on 03-29-2023 Hemoglobin (Bld) [Mass/Vol] 13.7 g/dL 12.0-15.[address] [facility] Blood lymphocytes/100 leukoc ytesOrdered By: Andres Loyola on 03-29-2023 Lymphocytes/100 WBC (Bld) 24.7 % 19-[address] [facility] Blood monocytes/100 leukocyt esOrdered By: Andres Loyola on 03-29-2023 Monocytes/100 WBC (Bld) 6.5 % 0-[address] [facility] Blood platelet mean volumeOr dered By: Andres Loyola on 03-29-2023 Platelet mean volume (Bld) [Entitic vol] 11.4 fL 6.2-12.[address] [facility] Determination of erythrocyte mean corpuscular volume (MCV)Ordered By: Andres Loyola on 03-29-2023 MCV (RBC) [Entitic vol] 83.8 fL 81-[address] [facility] Hematocrit Auto (Bld) [Volum e fraction]Ordered By: Andres Loyola on 03-29-2023 Hematocrit (Bld) [Volume fraction] 39.9 % 37-[address] [facility] Ketones Test strip Ql (U)Ord ered By: Andres Loyola on 03-29-2023 Ketones Ql (U) 15 mg/dl Negative [facility] - Hematology and Cell countsOrdered By: Andres Loyola on 03-29-2023 Erythrocyte distribution width (RBC) [Entitic vol] 41.5 fL 35.1-43.[address] [facility] Erythrocyte distribution width (RBC) [Ratio] 13.7 % 11.6-14.[address] [facility] Immature granulocytes/100 WBC (Bld) 0.700 % 0.0-0.[address] [facility] Comment on above: IG% - Immature Granu locytes (promyelocytes, myelocytes and metamyelocytes) > 1% indicates that a LEFT SHIFT is Present. MCH (RBC) [Entitic mass] 28.8 pg 27.0-32.[address] [facility] Nucleated RBC/100 WBC (Bld) [Ratio] 0 % 0-[address] [facility] MCHC Auto (RBC) [Mass/Vol]Or dered By: Andres Loyola on 03-29-2023 MCHC (RBC) [Mass/Vol] 34.3 g/dL 32-36 [facility] Mucus LM Ql (Urine sed)Order ed By: Andres Loyola on 03-29-2023 Mucus Ql (Urine sed) 0 SEEN /hpf [facility] Nitrite Test strip Ql (U)Ord ered By: Andres Loyola on 03-29-2023 Nitrite Ql (U) Negative Negative [facility] Platelets bldOrdered By: Rufino Loyola on 03-29-2023 Platelets (Bld) [#/Vol] 308 10*3/uL 150-[address] [facility] Protein Test strip Ql (U)Ord ered By: Andres Loyola on 03-29-2023 Protein Ql (U) 30 mg/dl Negative [facility] Squamous epithelial cells de tection in urine sediment by light microscopyOrdered By: Andres Loyola on 03-29-2023 Epithelial cells.squamous LM Ql (Urine sed) 0 SEEN /hpf 5-[address] [facility] Urine blood detectionOrdered By: Andres Loyola on 03-29-2023 RBC Ql (U) 25 /ul Negative [facility] RBC Ql (U) 0 SEEN /hpf 0-[address] [facility] Urine clarityOrdered By: Rufino Loyola on 03-29-2023 Clarity (U) Sl. Cloudy Clear [facility] Urine color determinationOrd ered By: Andres Loyola on 03-29-2023 Color (U) Yellow Yellow [facility] Urine glucose detectionOrder ed By: Andres Loyola on 03-29-2023 Glucose Ql (U) Normal mg/dl Normal [facility] Urine leukocyte esterase det ection by dipstickOrdered By: Andres Loyola on 03-29-2023 Leukocyte esterase Test strip Ql (U) 25 /ul Negative [facility] Urine pHOrdered By: Andres Loyola on 03-29-2023 pH (U) 5.0 [pH] 5.0 - 8.[address] [facility] Urine sediment bacteria coun t by microscopy (number/high power field)Ordered By: Andres Loyola on 03-29-2023 Bacteria LM.HPF (Urine sed) [#/Area] 0 /[HPF] None Seen [facility] Urine specific gravity measu rementOrdered By: Andres Loyola on 03-29-2023 Specific gravity (U) [Rel density] 1.025 1.002-1.[address] [facility] Urobilinogen Auto test strip Ql (U)Ordered By: Andres Loyola on 03-29-2023 Urobilinogen Ql (U) 1 mg/dl Normal [facility] Basophil percentageOrdered B y: Rycarmina James on 03-28-2023 Chloride [Moles/Vol] 106 mmol/L 98-107 [facility] Glucose [Mass/Vol] 160 mg/dL 74-106 [facility] Comment on above: Fasting Glucose resu lt greater than or equal to 126 mg/dL suggests DIABETES MELLITUS per A.D.A. criteria. Potassium [Moles/Vol] 3.4 mmol/L 3.5-5.1 [facility] Sodium [Moles/Vol] 138 mmol/L 136-145 [facility] Beta hCG serum qualOrdered B y: Ry James on 03-28-2023 Beta HCG ( test) Ql Negative [facility] Influenza virus A and B and SARS-CoV-2 (COVID-19) Ag panel - Upper respiratory specimOrdered By: Ry James on 03-28-2023 SARS-CoV-2 (COVID-19) RNA MURALI+probe Ql (Resp) [facility] Laboratory - Chemistry and C hemistry - challengeOrdered By: Ry James on 03-28-2023 CO2 [Moles/Vol] 20.0 mmol/L 21.0-32.[address] [facility] Urea nitrogen/Creatinine [Mass ratio] 10.2 mg/mg 10-[address] [facility] - Drug toxicology Ordered By: Ry James on 03-28-2023 Amphetamines Ql (U) Negative <1000 ng/mL [facility] Benzodiazepines Ql (U) Negative < 200 ng/mL [facility] Cannabinoids Screen Ql (U) Positive < 50 ng/mL [facility] Cocaine Ql (U) Negative < 300 ng/mL [facility] Opiates Ql (U) Positive < 300 ng/mL [facility] No Panel InformationOrdered By: Ry James on 03-28-2023 MDMA (Ecstasy) Screen Negative < 500 ng/mL [facility] Urine Barbiturates Screen Negative < 200 ng/mL [facility] Urine Drug Screen Comment [facility] Comment on above: CONFIRMATORY TESTING FOR ALL POSITIVE URINE DRUG SCREENRESULTS WILL ONLY BE SENT OUT UPON PHYSICIAN ORDER. VISTA Urine Drug Screen methods provide only preliminaryanalytical test results. A more specific alternate chemicalmethod must be used in order to obtain a confirmedanalytical result. Gas chromatography/mass spectrometery(GC/MS) is the preferred confirmatory method. Clinicalconsideration and professional judgement should be appliedto any drug of abuse test result, particularly whenpreliminary positive results are used. URINE TCA TESTING MUST BE ORDERED SEPARATELY. USE TESTMNEMONIC: [facility] Urine Methadone Screen Negative < 300 ng/mL [facility] Estimated Creatinine Clearance Calc 71.30 ml/min [facility] Estimated GFR (MDRD) Amer 77 mL/min >[address] [facility] Comment on above: GFR Calc Estimated GFR (MDRD) Non-Af Amer 63 mL/min >[address] [facility] Comment on above: Non- GFR Calc Ethyl Alcohol Level < 3.0 mg/dL [facility] Comment on above: The serum:whole bloo d ethanol ratio is approximately 1.14and varies slightly with hematocrit. Medical Alcohol reference interval and critical value innon-tolerant individuals; 50 - 100 Impairment 100 Intoxication 100 - 250 Severe Poisoning 250 - 400 Deep/possible fatal coma Serum or plasma calcium prakash urement (mass/volume)Ordered By: Ry James on 03-28-2023 Calcium [Mass/Vol] 11.1 mg/dL 8.5-10.1 [facility] Serum or plasma creatinine m easurement (mass/volume)Ordered By: Ry James on 03-28-2023 Creatinine [Mass/Vol] 1.08 mg/dL 0.55-1.02 [facility] Comment on above: The validity of the calculated GFR & GFRAA in patients over 70 years has not been determined. Clinical correlation is essential. Serum or plasma urea nitroge n measurement (mass/volume)Ordered By: Ry James on 03-28-2023 Urea nitrogen [Mass/Vol] 11 mg/dL 7-[address] [facility] Thin prep Papanicolaou smear with manual screeningOrdered By: Ry James on 03-28-2023 Thin prep Papanicolaou smear with manual screening 12 5-[address] [facility] Urine phencyclidine (PCP) de tectionOrdered By: Ry James on 03-28-2023 Phencyclidine Ql (U) Negative < 25 ng/mL [facility] ANES Shey 10-04-2017 ANES POST HNO ID: [id number] thor: Miguel Andradeervice: AnesthesiologyAuthor Type: AnesthesiologistType: Anesthesia PostOpFiled: 10/04/2017 4:42 PMNote Text:POST ANESTHESIA EVALUATION NOTESERVICE DATE: 10/04/2017SERVICE TIME: 4.30DOB: 1995Vitals: 10/04/1813Temp: 36.6 ?C (97.9 ?F) 36.6 ?C (97.9 ?F) 01/03/10/04/1814P: 126/66 120/64 118/58 119/64 10/04/1814Pulse: 71 76 71 76 10/04/1814Resp: 16 16 16 16 10/04/1814SpO2: 95% 96% 96% 96%Validated Vital Signs: YesPOST ANES STATUS: No apparent anesthetic complications. The patient isappropriately hydrated with stable respiratory and cardiovascular status.Patient has safe and adequate airway control. The patient has appropriatepain relief and no significant post operative nausea or vomiting. Thepatient has achieved baseline mental status.Further assessment by Anesthesia Service: NoneOther Remarks:SIGNATURE: Miguel Dash MD PATIENT NAME: Joshua BassATE: October 04, 2017 : 4:42 PM PAGER/CONTACT #: anesthesia Normal [facility] ANES PREOPon 10-04-2017 ANES PREOP HNO ID: [id number] thor: Miguel Andradeervice: AnesthesiologyAuthor Type: AnesthesiologistType: Anesthesia PreOpFiled: 10/04/2017 12:21 PMNote Text: ANESTHESIOLOGY DAY OF SURGERY NOTESERVICE DATE: 10/04/2017SERVICE TIME:1221DOB: 1995Procedure(s) (LRB):LAPAROSCOPIC CHOLECYSTECTOMY (N/A)Surgeon(s):Basim SloananEstimcarlyle body mass index is 34.06 kg/(m2) as calculated from thefollowing: Height as of this encounter: 167.6 cm (5' 6). Weight as of this encounter: 95.7 kg (211 lb).Most recent hematocrit and potassium results:No results found for this basename: HCT,HEMATOCRIT,K,POTASSIUMAN ES DOS/PREOP NOTE:Vitals: BP: 116/70Pulse: 79Resp: 16Temp: 36.6 ?C (97.9 ?F)TempSrc: Temporal ArterySpO2: 98%Weight: 95.7 kg (211 lb)Height: 167.6 cm (5' 6)ACTIVE PROBLEM LISTAbdominal Pain, EpigastricGallstonesRuq PainPAST MEDICAL HISTORYDiagnosis Date- CholelithiasesPAST SURGICAL HISTORYProcedure Laterality Date- PAST SURGICAL HISTORY OF Right 2014 rght salpingectomyNo family history on file.Social History:Social HistorySubstance Use Topics- Smoking status: Never Smoker- Smokeless tobacco: Never Used- Alcohol use Not on fileNo current facility-administered medications on file prior to encounter.Current Outpatient Prescriptions on File Prior to Encounter:CRYSELLE 0.3-30 mg-mcg per tabletB INFANTIS/B ANI/B CONSUELO/B BIFID (PROBIOTIC 4X ORAL) Take by mouth. VIT/IRON FUM/FOLIC AC ( 10/02 ORAL) Take by mouth.omeprazole (PRILOSEC) 20 mg capsule Take 1 capsule by mouth twice daily.ondansetron orally disintegrating (ZOFRAN ODT) 4 mg disintegrating tabletCurrent Facility-Administered Medications:lactated ringers infusion 30 mL/hr INTRAVENOUS CONTINUOUS Basim TGutroman Last Rate: 30 mL/hr at 10/04/17 1023 30 mL/hr at 10/04/17 1023ceFAZolin 2 g in dextrose (iso-osmotic) 100 mL (ANCEF, KEFZOL) 2 gINTRAVENOUS Pre-Op Once Basim SloananAllergies: ALLERGIESNo Known AllergiesDOS EXAM: Adequate NPO status: YesAnesthetic risks, benefits, alternatives, personnel and consent discussed:YesPatient agrees to proceed: YesPrevious Anesthesia: No history of adverse event.Airway Assessment: MP 2; Neck ROM: Full ROM without neurologic symptoms;Airway Evaluation: No significant abnormalitiesSymptoms of Sleep Apnea: NoneDentition: Teeth intactAdditional Physical Exam:Lungs: Patient health status unchanged since recent history and physical.See history and physical for exam findings.Lungs clear to auscultation. Good diaphragmatic excursion.Cardiac: Patient health status unchanged since recent history andphysical. See history and physical for exam findings.normal S1 and S2; no rubs, no murmurs, and no gallopsAdditional Pertinent Findings: N/ABlood Products: Not anticipated for this procedure.Anesthetic Plan: General, Standard ASA MonitorsPain Management Plan: Parenteral or OralASA Class: 2Other Medical Problems: NoneChronic Beta Vasiliy medication administered within 24 hours: N/AI have interviewed and examined the patient. I have reviewed the medicalrecord and/or the pre-anesthesia evaluation, pertinent labs, and testresults.Significant changes in the patient's condition since the History andPhysical, not otherwise documented in primary service progress notes: NoThis contains updated information obtained within 48 hours ofSurgery/Procedure.SIGNATUR E: Miguel Dash MD PATIENT NAME: Joshua BassATE: October 04, 2017 : 12:21 PM CSN: [id number] [facility] BRIEF OP NOTon 10-04-2017 BRIEF OP NOT HNO ID: [id number] thor: Basim Sheridanervice: General SurgeryAuthor Type: PhysicianType: Brief Op NoteFiled: 10/04/2017 2:09 PMNote Text:BRIEF OPERATIVE NOTATION FOR SURGICAL PROCEDURE.Joshua Moscoso 1995 [id number] femaleLOG ID: [id number]/Procedure Date: 10/04/2017Incision/Procedure Start Time: 1:06 PMIncision Close/Procedure End Time: 2:02 PMSurgeon(s)/Proceduralist(s ) and Operations And Maintenance Technician(s):Surgeon(s) and Role: * Basim Prince - PrimaryPhysician Operations And Maintenance Technician: Pamela SanchezERRVIRGIE PHYSICIAN:OutpatientDEPT: JUDITH PROVIDER: [facility] POS:[id number] : GeneralASA CLASS: 2 - mildDIAGNOSIS: biliary colic, cholelithiasisPROCEDURE: LAPAROSCOPIC CHOLECYSTECTOMY WITH INTRAOPERATIVE CHOLEANGIOGRAM- 35549-326OCJ: 1000EBL: 10Specimens: gtallbladderADDITIONAL DIAGNOSES:FINDINGS: normal IOCCOMPLICATIONS: NonePMHx -PAST MEDICAL HISTORYDiagnosis Date- CholelithiasesCOMORBIDITIES - ObesityPost Op Occurrences - NoneWound Classification - Clean ContaminatedOperative note dictated in the dictation system. - [id number] Prince MD [facility] HISTORY PHYSICALon 201 8 HISTORY PHYSICAL HNO ID: [id number] thor: Basim T GuttmanService: General SurgeryAuthor Type: PhysicianType: HANDPFiled: 10/04/2017 9:57 AMNote Text:HISTORY AND PHYSICAL?Joshua Zavala Bess1995?REFERRING PHYSICIAN: Yousif Houser MD?CHIEF COMPLAINT: New Patient?HPI: Joshua is a 22 year old female with a complaint of right upperquadrant pain. The patient has had symptoms of nausea and vomiting withright upper quadrant pain for sometime. The symptoms have increased, overthe past few months. The pain does radiate to the back. Food doesaggravate her symptoms. Alleviating factors include: none.?The patient was seen by Dr. Houser 1 month ago. Joshua underwent anultrasound. These tests demonstrated cholelithiasis. She has hadendoscopy which demonstrated some gastritis but proton pump inhibitors andCarafate did not help her symptoms. She has had peptic ulcers in the pastand had different symptoms, then these current symptoms.?The patient is referred for evaluation and treatment.?The patient is being seen by me today at the request of Dr. Houser for myopinion and advice regarding symptomatic cholelithiasis.??SIGNIFICANT MEDICAL PROBLEMS: PAST?MEDICAL?HISTORY No past medical history on file.??OPERATIONS: PAST?SURGICAL?HISTORY No past surgical history on file.??CURRENT MEDICATIONS: CURRENT?MEDICATIONS Current Outpatient Prescriptions:CRYSELLE 0.3-30 mg-mcg per tablet ? Disp: Rfl:B INFANTIS/B ANI/B CONSUELO/B BIFID (PROBIOTIC 4X ORAL) Take by mouth. Disp:Rfl:omeprazole (PRILOSEC) 20 mg capsule Take 1 capsule by mouth twice daily.Disp: 200 capsule Rfl: 5ondansetron orally disintegrating (ZOFRAN ODT) 4 mg disintegrating tablet? Disp: Rfl: VIT/IRON FUM/FOLIC AC ( 10/02 ORAL) Take by mouth. Disp:Rfl:metroNIDAZOLE (FLAGYL) 500 mg tablet Take 1 tablet by mouth twice daily.Disp: 28 tablet Rfl: 2miconazole nitrate (MONISTAT) 200 mg vaginal suppository Use 1 Suppositoryvaginally daily at bedtime. Disp: 14 Suppository Rfl: 0JUNEL FE 10/21, 28, 1 mg-20 mcg (21)/75 mg (7) per tablet ? Disp: Rfl:pantoprazole DR (PROTONIX) 40 mg tablet ? Disp: Rfl:sucralfate (CARAFATE) 1 gram tablet ? Disp: Rfl:promethazine (PHENERGAN) 25 mg tablet ? Disp: Rfl:triamcinolone acetonide (KENALOG) 0.1 % ointment ? Disp: Rfl:?No current facility-administered medications for this visit.?ALLERGIES: Review of patient's allergies indicates no known allergies.?PERSONAL HISTORY: SOCIAL?HISTORY Social History Marital status: Single Spouse name: Years of education: Number of children:?Social History Main Topics Smoking status: Never Smoker? Smokeless status: Never Used?FAMILY HISTORY: FAMILY?HISTORY No family history on file.?REVIEW OF SYMPTOMS: The review of systems data was entered by the nurse and reviewed by me?Nursing Notes:Teresa Sorto MA 09/28/2017 3:21 PM SignedREVIEW OF SYSTEMS: General: The patient NOTES fatigue, denies weight loss, deniesweight gain, denies feeling hot, and denies feelings of cold. Eyes: The patient denies glaucoma, denies eye injury/surgery, wearsglasses or contacts. Ear/Nose/Throat: The patient denies allergies, denies hayfever,denies ear infections, and denies bloody noses. Cardiovascular: The patient denies chest pain, denies heart disease,denies high blood pressure,denies cardiac stent, denies prior heartattack, denies irregular heart beat, denies high cholesterol, denies poorcirculation, denies heart failure, other cardiac issues, deniesclaudication, denies cold feet, denies peripheral arterial stent. Respiratory: The patient denies tuberculosis, denies pneumonia,denies frequent cough, denies pulmonary embolism, denies shortness ofbreath, and denies coughing up blood. Gastrointestinal: The patient denies difficulty swallowing, NOTESacid reflux, NOTES ulcers, NOTES vomiting, denies jaundice/hepatitis,denies gallbladder problems, denies black or tarry stools, denieshemorrhoids, denies bleeding from rectum, denies diverticulitis, deniesconstipation, denies diarrhea, denies loss of stool control, and denieshernias. Kidney/Bladder: The patient denies kidney stones, denies urineinfections, and denies bloody urine. Skin: The patient denies a history of skin cancer, deniesbleeding/changing moles, and denies a history of skin rash. Neurologic: The patient denies a history of epilepsy/convulsions,denies headaches, denies head/spinal injuries, and denies stroke/TIA. Psychiatric: The patient denies psychiatric medications, deniesdepression, and denies voices, denies substance abuse. Endocrine: The patient denies thyroid disorders, denies diabetes,and denies hormonal problems. Hematologic: The patient denies a history of bruising, deniesbleeding, and denies anemia, denies blood clots. Infections: The patient denies a history of measles and mumps,denies rheumatic fever, and denies sexually transmitted diseases. Musculoskeletal: The patient denies back pain/injury, denies backproblems, denies sciatica, denies knee/foot trouble, denies arthritis, ordenies gout.??When was patient's last Mammogram screening? N/A? Last Colonoscopy: n/a?Teresa Sorto MA??PHYSICAL EXAMINATION:?General: The patient is 22 year old female, well nourished, well hydratedin no acute distress. The patient is oriented to time, place, and person.?VITALS: Blood pressure 120/72, pulse 76, height 167.6 cm (5' 6), jpeofp47.4 kg (206 lb). Body mass index is 33.25 kg/(m2).?HEENT: Normal cephalic, ataumatic, pupils are equally round, sclera areanicteric, mucous membranes are moist, oropharynx is clear. Neck has nomasses, asymmetry or lymphadenopathy. Thyroid is unremarkable.?Respiratory: Clear to auscultation and percussion. Normal respiratoryexcursion and pattern.?Cardiac: Examination is regular rate and rhythm.?Abdominal exam: Normoactive bowel sounds, Soft, tender in the right upperquadrantnegative Abrams's sign, with no palpable masses. No hepatosplenomegaly.No palpable hernias.?Rectal exam: exam deferred?Extremities: no clubbing, cyanosis or edema. No adenopathy.?Other:?LABORATOR Y VALUES: As Noted?RADIOLOGIC STUDIES: As Noted Above?AssessmentIMPRESSION: RUQ Pain, Cholelithiasis?PLAN: My plan is to perform a laparoscopic cholecystectomy withintraoperative choleangiogram. The planned surgical procedure wasdiscussed extensively with the patient. The risks, benefits, anticipatedoutcomes and possible complications were mentioned. My staff has alsoexplained the procedure in understandable terms and the patient was giventhe option to take printed material concerning the planned procedure. Thepatient had the opportunity to ask questions concerning the plannedprocedure. The patient freely consents to the planned procedure.?Planned Procedure: LAPAROSCOPIC CHOLECYSTECTOMY WITH INTRAOPERATIVECHOLEANGIOGRAM - [id number]?Planned antibiotic: Ancef 2gm IVPB operations representative to OR?SCDs needed - Yes?Operations And Maintenance Technician Needed - No?Diagnoses: (R10.11) RUQ pain (primary encounter diagnosis)? Basim Prince MD [facility] NURSING PROGon 10-04-2017 NURSING PROG HNO ID: [id number] thor: [place]) Katie, Dinaice: (none)Author Type: Registered NurseType: Nursing Progress NoteFiled: 10/04/2017 6:57 PMNote Text: Nursing Progress NotePatient Name: Joshua DiazRN: [id number] Location: [facility] Daily Note:Pt. States her nausea is gone and feels much better. Pain tolerable menezes/c home and wants to be d/c home.This note was completed by: Jennie Wilson RN [facility] NURSING PROG HNO ID: [id number] thor: [place]) Suzan Wilson: (none)Author Type: Registered NurseType: Nursing Progress NoteFiled: 10/04/2017 5:00 PMNote Text: Nursing Progress NotePatient Name: Joshua DiazRN: [id number] Location: [facility] Surgery/[facility] Surgery Daily Note:Pt up to BR with assist. Pt. Able to urinate without difficulty. Smallemesis prior to getting up. States nausea feels better.This note was completed by: Jennie Wilson RN [facility] [id number] thor: Yamilet (Rn) Dina Hortaice: (none)Author Type: Registered NurseType: Nursing Progress NoteFiled: 10/04/2017 2:05 PMNote Text: Nursing Progress NotePatient Name: Joshua TrotterSeunN: [id number] Location[facility] Report off to ANA Egan for lunch coverage. IV site withoutcomplications. Pt smiling, pleasant and in NAD. Care relinquished.This note was completed by: Yamilet Horta RN [facility] ID: [id number] thor: Yamilet (Rn) Dina Hortaice: (none)Author Type: Registered NurseType: Nursing Progress NoteFiled: 10/04/2017 11:08 AMNote Text: Nursing Progress NotePatient Name: Joshua TrotterSeunN: [id number] Location: [facility] OR notified RN of possible 30-40 minute delay. Pt/family aware. Ptcontinues to laugh and denies pain or concerns. IV site withoutcomplications, NPO maintained. Warm blanket applied.This note was completed by: Yamilet Horta RN [facility] NURSING PROG HNO ID: [id number] thor: Yamilet (Rn) DAYANA Hortaervice: (none)Author Type: Registered NurseType: Nursing Progress NoteFiled: 10/04/2017 10:36 AMNote Text: Nursing Progress NotePatient Name: Joshua TrotterRN: [id number] Location: [facility] Family at bedside. IV infusing and site without complications. Ptlaughing and refuses warm blanket. Ready for OR.This note was completed by: Yamilet Horta RN [facility] OPERATIVE NOon 10-04-2017 OPERATIVE NO HNO ID: [id number] thor: Basim Sheridanervice: General SurgeryAuthor Type: PhysicianType: Operative ReportFiled: 10/05/2017 8:02 AMNote Text:[facility]- Operative ReportBEJOSHUA DE LA GARZA MDOB: 1995 AGE: 22 SEX: FMRN: [id number] ACCTNUM: [id number] SVC: GEN LOCATION: [address] PHYSICIAN: BASIM BHANDARITE OF PROCEDURE: 10/04/2017SURGEON: Basim Prince M.D.SHEET METAL FABRICATOR: NONEANESTHESIA: General endotracheal.PREOPERATIVE DIAGNOSIS(ES): Symptomatic cholelithiasis, biliary colic.POSTOPERATIVE DIAGNOSIS(ES): Symptomatic cholelithiasis, biliary colic,normal cholangiogram.NAME OF OPERATION: Laparoscopic cholecystectomy with cholangiogram.INDICATIONS:ES TIMATED BLOOD LOSS: 10 mL.COMPLICATIONS: None.SPECIMENS: Gallbladder.DRAINS: None.URINE OUTPUT: No catheter.LOG ID: [id number].START TIME: 1:06 p.m.END TIME: 2:02 p.m.ASA: 2.IV FLUIDS: 1000 cc.DISPOSITION: The patient was taken to PACU in stable condition.FINDINGS: Normal cholangiogram.PROCEDURE: The patient was brought to the operating suite. Sign-in wasperformed verifying patient, site of procedure, position. She received 2g of Ancef and sequential compression device was placed. Upon inductionof general anesthetic, patient was prepped and draped in a standardfashion. Time-out was performed verifying patient, site, procedure,position. An elective incision was made dissecting the fascia. Theincision was made to fascia of the peritoneum under visualization.Simran trocar was inserted through a stay suture and pneumoperitoneum to15 mm was inflated through 5 mm ports placed in position. Visualinspection revealed a mildly edematous gallbladder, otherwise normalizedvisualized intraabdominal structures. Gallbladder was retracted upwardand outward. Dissection was carried out in Calot's triangle. Thisdissection was continued. A critical view of the neck of the gallbladderfinding the cystic duct with no signs of aberrant ductal structures wasseen. Cystic artery was also dissected and noted to have a normalanatomy. A clip was placed on the neck of the gallbladder and a partialductotomy was made. Percutaneous cholangiocath was inserted through theclip. Intraoperative cholangiogram showed filling of the cystic duct,filling of the common bile duct, filling of the secondary to radicals andemptying into the duodenum without obstruction. Clip and catheter wereremoved from the cystic duct. Cystic duct was divided. The cystic arterywas identified, doubly clipped proximally, singly clipped distally, anddivided.. Following this, the gallbladder was resected from thegallbladder fossa with electrocautery, placed in the Endobag and removedthrough the umbilical port site. 0 Maxon rudhsa-ez-xwbnz suture wasplaced into the defect. The gallbladder fossa was checked forhemostasis. With good hemostasis, the area was irrigated and aspiratedclear. Five ports were removed under direct visualization without signsof bleeding. The pneumoperitoneum was released. The umbilical trocar was removed. The umbilical fascia was secured. The skin was closed with 4-0Biosyn subcuticular sutures. Steri-Strips and dressing were applied.The patient tolerated the procedure well.I was present for the entire case. Pamela Welsh, physician'jeromesiselainet, provided skin closure.Basim Prince M.D.General SurgeryRG:[id number]: 10/04/2017 14:09:38T: 10/04/2017 22:16:14Job #: [id number] [facility] PLAN OF CAREon 10-04-2017 PLAN OF CARE HNO ID: [id number] thor: Kathrine Alarcon ([employer])Service: (none)Author Type: TechnicianType: Plan of CareFiled: 10/04/2017 3:36 PMNote Text:PATENT PROSECUTION PARALEGAL BEDSIDE DELIVERY SURVEY1. Patient to use [facility] Bedside Delivery - YES2. If fax, patient would like us to fax prescriptions to [facility]. Pharmacy: b. Location: c. Phone:3. Insurance card on file - YES4. Credit card for [facility] B[facility]IDE DELIVERY SERVICEPatient Name: Joshua DiazRN: [id number] marked outpatient medications were Filled at: [facility] and delivered tothe patient's bedside to pharm p/uMedication ListSTART taking these medicationsX * oxyCODONE-acetaminophen 5-325 mg tabletCommonly known as: PERCOCETTake 1 tablet by mouth one time only for 1 dose. * oxyCODONE-acetaminophen 5-325 mg tabletCommonly known as: PERCOCETTake 1 tablet by mouth every 6 hours as needed for Pain for up to 7 days. * Notice: This list has 2 medication(s) that are the same as othermedications prescribed for you. Read the directions carefully, and askyour doctor or other care provider to review them with you.CONTINUE taking these medications Cryselle 0.3-30 mg-mcg per tabletGeneric drug: Norgestrel-Ethinyl Estradiol omeprazole 20 mg capsuleCommonly known as: PriLOSECTake 1 capsule by mouth twice daily. ondansetron orally disintegrating 4 mg disintegrating tabletCommonly known as: ZOFRAN ODT 10/02 ORAL PROBIOTIC 4X ORALDigiuseppe Alarcon (Laundromat Worker)PAGER: [phone] 2017 3:36 PM [facility] PT EDon 10-04-2017 PT ED HNO ID: [id number] thor: Yamilet (Rn) DAYANA Hortaervice: (none)Author Type: Registered NurseType: Patient EducationFiled: 10/04/2017 10:35 AMNote Text:PRE OP LEARNING ASSESSMENTPROCEDURE/SURGERY: Lap cholecystectomyREADINESS TO LEARN eagerCOGNITIVE ABILITY: Alert and orientedMOTIVATION TO LEARN: EagerFAMILY SUPPORT: High - Very involved in pt carePATIENT LEARNS BEST BY: Individual InstructionFACTORS AFFECTING LEARNING: NonePHYSICAL LIMITATIONS AFFECTING LEARNING: NoneElectronically Signed By: Yamilet Horta RN In Department: [facility] SURGERY Normal [facility] SURGICAL PATHOLOGYon 018 SURGICAL PATHOLOGY [facility]: [id number] Physician: BASIM PRINCE MD FINAL DIAGNOSISGallbladder, cholecystectomy - Chronic cholecystitis with cholelithiasis. DTP/glw 10/06/2017 Jennifer Carr M.D.(Electronic Signature) SPECIME N SUBMITTEDA: GALLBLADDER CLINICAL DATARUQ PAIN, LMP: HCG NEGATIVELAPAROSCOPIC CHOLECYSTECTOMY WITH INTRAOPERATIVE CHOLANGIOGRAMS GROSS DESCRIPTIONA. Received in formalin labeled gallbladder is a specimen consisting of agallbladder measuring 11.9 x 3.4 x 2.6 cm. A perforation is not present.The lumen contains bile. The serosal surface is purple-espinosa, smooth andglistening. The wall of the specimen measures 0.1 cm in thickness. Multiplecalculi are present of the admixed nature and range in size from 1.9 to 3.5cm in greatest dimension. A calculus is not impacted in the cystic duct.The mucosal surface is henry-pink and displays normal mucosal ridges.Contact Center Consultant sections are submitted in formalin in one cassette.KVB/brice 10/05/2017Gross examination performed at [facility], [address] [place] [address].[place] [address] of Report: 10/06/2017Date of Procedure: 10/04/2017Date of Receipt: 10/04/2017Submitted by: BASIM PRINCE MDLocation: MEORDiagnostic interpretation performed at [facility], [address] [place], [place] [id number]. [facility] Comment on above: Performed By: #### P ATHS ####[facility] [address]CGraham, [place] [phone] XR CHOLANGIOGRAM INTRAOPon 0 10-04-2017 Cholesterol * * *Final Report* * *DATE OF EXAM: Oct 04 2017 1:35PM MDX 5421 - XR CHOLANGIOGRAM INTRAOP / REASON: EPIGASTRIC PAIN, CHOLELITHIASIS * * * * Physician Interpretation * * * * HISTORY: Cholelithiasis, epigastric painTECHNIQUE: Fluoroscopic intraoperative intensifier screen images were done.Fluoroscopic Radiation Summary:Plane A, Air Kerma: 2.5 mGyDose Area Product (DAP): 780.9 mGy*erR7Nezazy time: 0:12 min:secRESULT: Contrast is shown in the biliary tree and flowing into the duodenum. No dilatation or obvious filling defect is seen.IMPRESSION: As in results.Compressor Mechanic Bus: FRANK Transcribe Date/Time: Oct 04 2017 2:19PDictated by : CLOVER SHARMA MDThicynthia examination was interpreted and the report reviewed and electronically signed by: CLOVER SHARMA MD on Oct 04 2017 2:19PM [id number] [facility] NURSING PROGon 10-03-2017 NURSING PROG HNO ID: [id number] thor: Gloria Amado (Rn) DAYANA Mcdanielservice: (none)Author Type: Registered NurseType: Nursing Progress NoteFiled: 10/03/2017 3:45 PMNote Text:PACC Nurse Progress NoteHistory AND Physical:PACC Visit Date: 10/03/2017Labs Within Last 6 Months:N/AImaging Within Last 12 Months:See chartCardiac Testing:N/ALast Menstrual Period:LMP Date: 09/12/2017Risk Assessment:N/AAnesthesia Review:DOSNarrative:No new consults or testing ordered.Pre-op Considerations:N/AChart Check:Maurisio Mcdaniels, ANAJanuary 2017 3:44 PM [facility] HOSPon 09-28-2017 HOSP Patient:Joshua Moscoso MRN: Height:5' 6(1.676 m)Weight:211 lb 8 oz (95.936 kg)Outpatient Medications as of 10/04/17:CRYSELLE 0.3-30 mg-mcg per tabletB INFANTIS/B ANI/B CONSUELO/B BIFID (PROBIOTIC 4X ORAL) VIT/IRON FUM/FOLIC AC ( 10/02 ORAL)omeprazole (PRILOSEC) 20 mg capsuleondansetron orally disintegrating (ZOFRAN ODT) 4 mg disintegrating tabletAdmission/Clinic Administered Medications as of 10/04/17:lactated ringers infusionceFAZolin 2 g in dextrose (iso-osmotic) 100 mL (ANCKEISHA KECeciZOJade)Problem List:Abdominal pain, epigastric [R10.13]Gallstones [K80.20]RUQ pain [R10.11]Allergies:No Known AllergiesDate Verified:10/04/17Lab ValuesNo results within the last 30 days for the following basenames: K,HCTProgress Notes ([facility]):Teresa Sorto MA 09/28/2017 3:21 PM SignedREVIEW OF SYSTEMS: General: The patient NOTES fatigue, denies weight loss, denies weightgain, denies feeling hot, and denies feelings of cold. Eyes: The patient denies glaucoma, denies eye injury/surgery, wearsglasses or contacts. Ear/Nose/Throat: The patient denies allergies, denies hayfever, denies earinfections, and denies bloody noses. Cardiovascular: The patient denies chest pain, denies heart disease,denies high blood pressure,denies cardiac stent, denies prior heart attack,denies irregular heart beat, denies high cholesterol, denies poor circulation,denies heart failure, other cardiac issues, denies claudication, denies coldfeet, denies peripheral arterial stent. Respiratory: The patient denies tuberculosis, denies pneumonia, deniesfrequent cough, denies pulmonary embolism, denies shortness of breath, anddenies coughing up blood. Gastrointestinal: The patient denies difficulty swallowing, NOTES acidreflux, NOTES ulcers, NOTES vomiting, denies jaundice/hepatitis, deniesgallbladder problems, denies black or tarry stools, denies hemorrhoids, deniesbleeding from rectum, denies diverticulitis, denies constipation, deniesdiarrhea, denies loss of stool control, and denies hernias. Kidney/Bladder: The patient denies kidney stones, denies urine infections,and denies bloody urine. Skin: The patient denies a history of skin cancer, deniesbleeding/changing moles, and denies a history of skin rash. Neurologic: The patient denies a history of epilepsy/convulsions, deniesheadaches, denies head/spinal injuries, and denies stroke/TIA. Psychiatric: The patient denies psychiatric medications, deniesdepression, and denies voices, denies substance abuse. Endocrine: The patient denies thyroid disorders, denies diabetes, anddenies hormonal problems. Hematologic: The patient denies a history of bruising, denies bleeding,and denies anemia, denies blood clots. Infections: The patient denies a history of measles and mumps, deniesrheumatic fever, and denies sexually transmitted diseases. Musculoskeletal: The patient denies back pain/injury, denies backproblems, denies sciatica, denies knee/foot trouble, denies arthritis, or deniesgout.When was patient's last Mammogram screening? N/A Last Colonoscopy: n/aAAddie Narvaez MD 09/28/2017 3:39 PM SignedHISTORY AND PHYSICALEmtd Zavala Bess1995REFERRING PHYSICIAN: Yousif Houser, [facility] COMPLAINT: New PatientHPI: Joshua is a 22 year old female with a complaint of right upper quadrantpain. The patient has had symptoms of nausea and vomiting with right upperquadrant pain for sometime. The symptoms have increased, over the past fewmonths. The pain does radiate to the back. Food does aggravate her symptoms.Alleviating factors include: none.The patient was seen by Dr. Houser 1 month ago. Joshua underwent an ultrasound.These tests demonstrated cholelithiasis. She has had endoscopy whichdemonstrated some gastritis but proton pump inhibitors and Carafate did not helpher symptoms. She has had peptic ulcers in the past and had different symptoms,then these current symptoms.The patient is referred for evaluation and treatment.The patient is being seen by me today at the request of Dr. Houser for myopinion and advice regarding symptomatic cholelithiasis.SIGNIFICANT MEDICAL PROBLEMS: No past medical history on file.OPERATIONS: No past surgical history on file.CURRENT MEDICATIONS:Current Outpatient Prescriptions:CRYSELLE 0.3-30 mg-mcg per tablet Disp: Rfl:B INFANTIS/B ANI/B CONSUELO/B BIFID (PROBIOTIC 4X ORAL) Take by mouth. Disp: Rfl:omeprazole (PRILOSEC) 20 mg capsule Take 1 capsule by mouth twice daily. Disp:200 capsule Rfl: 5ondansetron orally disintegrating (ZOFRAN ODT) 4 mg disintegrating tablet Disp:Rfl: VIT/IRON FUM/FOLIC AC ( 10/02 ORAL) Take by mouth. Disp: Rfl:metroNIDAZOLE (FLAGYL) 500 mg tablet Take 1 tablet by mouth twice daily. Disp:28 tablet Rfl: 2miconazole nitrate (MONISTAT) 200 mg vaginal suppository Use 1 Suppositoryvaginally daily at bedtime. Disp: 14 Suppository Rfl: 0JUNEL FE 10/21, 28, 1 mg-20 mcg (21)/75 mg (7) per tablet Disp: Rfl:pantoprazole DR (PROTONIX) 40 mg tablet Disp: Rfl:sucralfate (CARAFATE) 1 gram tablet Disp: Rfl:promethazine (PHENERGAN) 25 mg tablet Disp: Rfl:triamcinolone acetonide (KENALOG) 0.1 % ointment Disp: Rfl:No current facility-administered medications for this visit.ALLERGIES: Review of patient's allergies indicates no known allergies.PERSONAL HISTORY: Social History Marital status: Single Spouse name: Years of education: Number of children:Social History Main Topics Smoking status: Never Smoker Smokeless status: Never UsedFAMILY HISTORY: No family history on file.REVIEW OF SYMPTOMS: The review of systems data was entered by the nurse and reviewed by Jessica Notes:Teresa Sorto MA 09/28/2017 3:21 PM SignedREVIEW OF SYSTEMS: General: The patient NOTES fatigue, denies weight loss, denies weightgain, denies feeling hot, and denies feelings of cold. Eyes: The patient denies glaucoma, denies eye injury/surgery, wearsglasses or contacts. Ear/Nose/Throat: The patient denies allergies, denies hayfever, denies earinfections, and denies bloody noses. Cardiovascular: The patient denies chest pain, denies heart disease,denies high blood pressure,denies cardiac stent, denies prior heart attack,denies irregular heart beat, denies high cholesterol, denies poor circulation,denies heart failure, other cardiac issues, denies claudication, denies coldfeet, denies peripheral arterial stent. Respiratory: The patient denies tuberculosis, denies pneumonia, deniesfrequent cough, denies pulmonary embolism, denies shortness of breath, anddenies coughing up blood. Gastrointestinal: The patient denies difficulty swallowing, NOTES acidreflux, NOTES ulcers, NOTES vomiting, denies jaundice/hepatitis, deniesgallbladder problems, denies black or tarry stools, denies hemorrhoids, deniesbleeding from rectum, denies diverticulitis, denies constipation, deniesdiarrhea, denies loss of stool control, and denies hernias. Kidney/Bladder: The patient denies kidney stones, denies urine infections,and denies bloody urine. Skin: The patient denies a history of skin cancer, deniesbleeding/changing moles, and denies a history of skin rash. Neurologic: The patient denies a history of epilepsy/convulsions, deniesheadaches, denies head/spinal injuries, and denies stroke/TIA. Psychiatric: The patient denies psychiatric medications, deniesdepression, and denies voices, denies substance abuse. Endocrine: The patient denies thyroid disorders, denies diabetes, anddenies hormonal problems. Hematologic: The patient denies a history of bruising, denies bleeding,and denies anemia, denies blood clots. Infections: The patient denies a history of measles and mumps, deniesrheumatic fever, and denies sexually transmitted diseases. Musculoskeletal: The patient denies back pain/injury, denies backproblems, denies sciatica, denies knee/foot trouble, denies arthritis, or deniesgout.When was patient's last Mammogram screening? N/A Last Colonoscopy: n/COURT MarceloHYBASSEM EXAMINATION:General: The patient is 22 year old female, well nourished, well hydrated in noacute distress. The patient is oriented to time, place, and person.VITALS: Blood pressure 120/72, pulse 76, height 167.6 cm (5' 6), weight 93.4kg (206 lb). Body mass index is 33.25 kg/(m2).HEENT: Normal cephalic, ataumatic, pupils are equally round, sclera areanicteric, mucous membranes are moist, oropharynx is clear. Neck has no masses,asymmetry or lymphadenopathy. Thyroid is unremarkable.Respiratory: Clear to auscultation and percussion. Normal respiratoryexcursion and pattern.Cardiac: Examination is regular rate and rhythm.Abdominal exam: Normoactive bowel sounds, Soft, tender in the right upperquadrantnegative Abrams's sign, with no palpable masses. No hepatosplenomegaly. Nopalpable hernias.Rectal exam: exam deferredExtremities: no clubbing, cyanosis or edema. No adenopathy.Other:LABORATORY VALUES: As NotedRADIOLOGIC STUDIES: As Noted AboveAssessmentIMPRESSION: RUQ Pain, CholelithiasisPLAN: My plan is to perform a laparoscopic cholecystectomy with intraoperativecholeangiogram . The planned surgical procedure was discussed extensively withthe patient. The risks, benefits, anticipated outcomes and possiblecomplications were mentioned. My staff has also explained the procedure inunderstandable terms and the patient was given the option to take printedmaterial concerning the planned procedure. The patient had the opportunity toask questions concerning the planned procedure. The patient freely consents tothe planned procedure.Planned Procedure: LAPAROSCOPIC CHOLECYSTECTOMY WITH INTRAOPERATIVECHOLEANGIOGRAM - [id number] antibiotic: Ancef 2gm IVPB operations representative to ORSCDs needed - YesAssistant Needed - NoDiagnoses: (R10.11) RUQ pain (primary encounter diagnosis) Basim Prince MD [facility] Lab Report: ,Urineo n 03-07-2017 Beta HCG ( test) Ql (U) Negative [facility] [employer] Work Phone: Office Visit: GERDon 017 Dietary management education, guidance, and counseling (procedure) yes Invalid Interpretation Code [facility] [employer] Work Phone: Documentation of current medications (procedure) Done Invalid Interpretation Code [facility] [employer] Work Phone: Fall risk assessment No [facility] [employer] Work Phone: Tobacco smoking status NHIS Never [facility] [employer] Work Phone: Tobacco smoking status NHIS Former smoker [facility] [employer] Work Phone: Tobacco use HS Former smoker Invalid Interpretation Code [facility] [employer] Work Phone: Office Visit: GERDon 017 General categories [interpretation] of Cervical or vaginal smear or scraping by Cyto stain Unknown [facility] [employer] Work Phone: Vital Signs Date Time Vital Sign Value Performing Clinician Facility 02-06-2025 15:24-0400 Body temperature 98.2 [degF] Lesa Trill TIP PRINTER-C Work Phone: [facility] 02-06-2025 15:24-0400 Diastolic blood pressure 62 mm[Hg] Lesa Trill TIP PRINTER-C Work Phone: [facility] 02-06-2025 15:24-0400 Heart rate 85 /min Lesa Trill TIP PRINTER-C Work Phone: [facility] 02-06-2025 15:24-0400 Respiratory rate 16 /min Lesa Trill TIP PRINTER-C Work Phone: [facility] 02-06-2025 15:24-0400 SaO2% (BldA) [Mass fraction] 97 % Lesa Trill TIP PRINTER-C Work Phone: [facility] 02-06-2025 15:24-0400 Systolic blood pressure 127 mm[Hg] Lesa Trill TIP PRINTER-C Work Phone: [facility] 02-06-2025 09:37-0400 Body height 167.64 cm Lesa Trill TIP PRINTER-C Work Phone: [facility] 02-06-2025 09:37-0400 Body mass index (BMI) [Ratio] 29.4 kg/m2 Lesa Trill TIP PRINTER-C Work Phone: [facility] 02-06-2025 09:37-0400 Body weight 82.7 kg Lesa Trill TIP PRINTER-C Work Phone: [facility] 11-08-2024 13:29-0500 Body height 167.6 cm [address]a Triisadora ROADMASTER.FRICTION WELDING MACHINE OPERATOR Work Phone: [facility] 11-08-2024 13:29-0500 Body mass index (BMI) [Ratio] 31.31 kg/m2 Lesa Triisadora ROADMASTER.FRICTION WELDING MACHINE OPERATOR Work Phone: [facility] 11-08-2024 13:29-0500 Body temperature 98.1 [degF] Lesa Triisadora ROADMASTER.FRICTION WELDING MACHINE OPERATOR Work Phone: [facility] 11-08-2024 13:29-0500 Body weight 88 kg Lesa Triisadora ROADMASTER.FRICTION WELDING MACHINE OPERATOR Work Phone: [facility] 11-08-2024 13:29-0500 Diastolic blood pressure 70 mm[Hg] Lesa Triisadora ROADMASTER.FRICTION WELDING MACHINE OPERATOR Work Phone: [facility] 11-08-2024 13:29-0500 Heart rate 69 /min Lesa Triisadora ROADMASTER.FRICTION WELDING MACHINE OPERATOR Work Phone: [facility] 11-08-2024 13:29-0500 SaO2% (BldA) [Mass fraction] 98 % Lesa Triisadora ROADMASTER.FRICTION WELDING MACHINE OPERATOR Work Phone: [facility] 11-08-2024 13:29-0500 Systolic blood pressure 112 mm[Hg] Lesa Triisadora ROADMASTER.FRICTION WELDING MACHINE OPERATOR Work Phone: [facility] 11-03-2024 10:57-0500 Body mass index (BMI) [Ratio] 32.27 kg/m2 Keely Reddy ROADMASTER.FRICTION WELDING MACHINE OPERATOR Work Phone: [facility] 11-03-2024 10:57-0500 Body temperature 99.61 [degF] Keely Reddy ROADMASTER.FRICTION WELDING MACHINE OPERATOR Work Phone: [facility] 11-03-2024 10:57-0500 Body weight 90.7 kg Keely Reddy ROADMASTER.FRICTION WELDING MACHINE OPERATOR Work Phone: [facility] 11-03-2024 10:57-0500 Diastolic blood pressure 71 mm[Hg] Keely Reddy ROADMASTER.FRICTION WELDING MACHINE OPERATOR Work Phone: [facility] 11-03-2024 10:57-0500 Heart rate 77 /min Keely Reddy ROADMASTER.FRICTION WELDING MACHINE OPERATOR Work Phone: [facility] 11-03-2024 10:57-0500 Respiratory rate 18 /min Keely Reddy ROADMASTER.FRICTION WELDING MACHINE OPERATOR Work Phone: [facility] 11-03-2024 10:57-0500 SaO2% (BldA) [Mass fraction] 98 % Keely Reddy ROADMASTER.FRICTION WELDING MACHINE OPERATOR Work Phone: [facility] 11-03-2024 10:57-0500 Systolic blood pressure 105 mm[Hg] Keely Reddy ROADMASTER.FRICTION WELDING MACHINE OPERATOR Work Phone: [facility] 10-30-2024 08:01-0500 Body height 167.[address] [facility] 10-30-2024 08:01-0500 Body mass index (BMI) [Ratio] 31.47 kg/m2 Staci Givens RD [facility] 10-30-2024 08:01-0500 Body weight 88.[address] [facility] Comment on above: 1 mo ago at last Dr dias 09-11-2024 13:44-0500 Body height 167.[address] [facility] 09-11-2024 13:44-0500 Body mass index (BMI) [Ratio] 32.77 kg/m2 Staci Givens RD [facility] 09-11-2024 13:44-0500 Body weight 92.08 kg Staci Givens [facility] 09-03-2024 13:25-0500 Body height 167.6 cm Lesa Soler APRN.FRICTION WELDING MACHINE OPERATOR Work Phone: [facility] 09-03-2024 13:25-0500 Body mass index (BMI) [Ratio] 32.77 kg/m2 Lesa Soler ROADMASTER.FRICTION WELDING MACHINE OPERATOR Work Phone: [facility] 09-03-2024 13:25-0500 Body temperature 98.1 [degF] Lesa Soler APRN.FRICTION WELDING MACHINE OPERATOR Work Phone: [facility] 09-03-2024 13:25-0500 Body weight 92.08 kg Lesa Soler APRN.FRICTION WELDING MACHINE OPERATOR Work Phone: [facility] 09-03-2024 13:25-0500 Diastolic blood pressure 62 mm[Hg] Lesa Soler APRN.FRICTION WELDING MACHINE OPERATOR Work Phone: [facility] 09-03-2024 13:25-0500 Heart rate 78 /min Lesa Soler APRN.FRICTION WELDING MACHINE OPERATOR Work Phone: [facility] 09-03-2024 13:25-0500 SaO2% (BldA) [Mass fraction] 97 % Lesa Soler APRN.FRICTION WELDING MACHINE OPERATOR Work Phone: [facility] 09-03-2024 13:25-0500 Systolic blood pressure 108 mm[Hg] Lesa Soler APRN.FRICTION WELDING MACHINE OPERATOR Work Phone: [facility] 08-28-2024 09:55-0500 Body height 167.6 cm Mario Monique MD Work Phone: [facility] 08-28-2024 09:55-0500 Body mass index (BMI) [Ratio] 33.57 kg/m2 Mario Monique MD Work Phone: [facility] 08-28-2024 09:55-0500 Body weight 94.35 kg Mario Monique MD Work Phone: [facility] 08-28-2024 09:55-0500 Diastolic blood pressure 71 mm[Hg] Mario Monique MD Work Phone: [facility] 08-28-2024 09:55-0500 Heart rate 72 /min Mario Monique MD Work Phone: [facility] 08-28-2024 09:55-0500 Systolic blood pressure 108 mm[Hg] Mario Monique MD Work Phone: [facility] 03-30-2023 09:14-0400 Respiratory rate 14 /min [facility] 03-30-2023 07:47-0400 Diastolic blood pressure 79 mm[Hg] [facility] 03-30-2023 07:47-0400 Heart rate 81 /min [facility] 03-30-2023 07:47-0400 SaO2% (BldA) [Mass fraction] 96 % [facility] 03-30-2023 07:47-0400 Systolic blood pressure 141 mm[Hg] [facility] 03-29-2023 21:44-0400 Body temperature 97.2 [degF] [facility] 03-28-2023 09:05-0400 Body height 167.64 cm [facility] 03-28-2023 09:05-0400 Body mass index (BMI) [Ratio] 32.3 kg/m2 [facility] 03-28-2023 09:05-0400 Body weight 90.71 kg [facility] 02-28-2017 14:13-0400 BMI (Body Mass Index) 31.79 kg/m2 Joshua Marshall RN RN [facility] Work Phone: 02-28-2017 14:13-0400 Body Temperature 98.1 [degF] Joshua Marshall RN RN [facility] Work Phone: 02-28-2017 14:13-0400 Body weight 89.36 kg Collette Curiel MD [facility] Work Phone: 02-28-2017 14:13-0400 BP Diastolic 88 mm[Hg] Joshua Marshall RN RN [facility] Work Phone: 02-28-2017 14:13-0400 BP Systolic 120 mm[Hg] Joshua Marshall RN RN [facility] Work Phone: 02-28-2017 14:13-0400 BSA (Body Surface Area) 1.99 m2 Joshua Marshall RN RN [facility] Work Phone: 02-28-2017 14:13-0400 Height 167.64 cm Joshua Marshall RN RN [facility] Work Phone: 02-28-2017 14:13-0400 Pulse (Heart Rate) 58 /min Joshua Marshall RN RN [facility] Work Phone: 02-28-2017 14:13-0400 Pulse Oximetry 98 % Joshua Marshall RN RN [facility] Work Phone: 02-28-2017 14:13-0400 Respiratory Rate 16 /min Joshua Marshall RN RN [facility] [employer] Work Phone: 02-28-2017 14:13-0400 Weight 89.36 kg Joshua Marshall RN RN [facility] Work Phone: Encounters Encounter Date Encounter Type Care Provider Facility Start: 02-14-2025 End: 02-14-2025 ambulatory Lesa Soler APRN.CNP Work Phone: [facility] Start: 02-14-2025 End: 02-14-2025 Follow-up encounter Lesa Soler APRN.CNP Work Phone: [facility] Comment on above: ED Follow-up ([facility] ED 02/06/2025 and [facility] ED 02/08/2025) Start: 02-08-2025 End: 02-08-2025 Emergency department patient visit PHYSICIAN [facility] Start: 02-06-2025 End: 02-06-2025 Emergency department patient visit Lesa DANIEL Work Phone: -Emergency Department Work Phone: Start: 11-18-2024 End: 11-18-2024 ambulatory GEMA GEOVANNY Facility:[facility] Comment on above: Procreative manageme nt (Primary Dx); PCOS (polycystic ovarian syndrome); Primary female infertility; Encounter for fertility testing; Screening examination for STD (sexually transmitted disease); Screen for STD (sexually transmitted disease); Screening for STD (sexually transmitted disease); Irregular bleeding; H/O unilateral salpingectomy Start: 11-18-2024 End: 11-18-2024 Telemedicine consultation with patient Gema Geovanny NICOLE Work Phone: [facility] Start: 11-12-2024 End: 11-12-2024 Follow-up encounter Lesa Soler APRN.FRICTION WELDING MACHINE OPERATOR Work Phone: [facility] Start: 11-08-2024 End: 11-08-2024 Telephone encounter Lesa Soler APRN.CNP Work Phone: [facility] Start: 11-08-2024 End: 11-08-2024 Patient encounter procedure Lesa Soler APRN.FRICTION WELDING MACHINE OPERATOR Work Phone: [facility] Comment on above: Type 2 diabetes kamlesh itus without complication, without long- term current use of insulin (HCC) (Primary Dx); Dyslipidemia; Hirsutism Start: 11-08-2024 End: 11-08-2024 ambulatory LESA SOLER [facility] Start: 11-03-2024 End: 11-03-2024 ambulatory LESA SOLER Facility:[facility] Start: 11-03-2024 End: 11-03-2024 Patient encounter procedure Keely Reddy APRN.FRICTION WELDING MACHINE OPERATOR Work Phone: [facility] Comment on above: URI, acute (Primary Dx) Start: 10-30-2024 End: 10-30-[address] [facility] Start: 10-30-2024 End: 10-30-2024 Nutrition therapy Staci Givens RD [facility] Comment on above: Reassessment; Patien t Education Start: 10-13-2024 End: 10-17-2024 ambulatory Mario Monique MD Work Phone: OB/Gynecology Comment on above: Menstruation questio n Start: 09-30-2024 End: 09-30-2024 Emergency department patient visit Lesa Soler NP Facility:[facility] Start: 09-19-2024 End: 09-20-2024 Telephone encounter Lesa Soler APRN.CNP Work Phone: [facility] Comment on above: Results (labs) Start: 09-11-2024 End: 09-11-2024 ambulatory STACI GIVENS Facility:[facility] Start: 09-11-2024 End: 09-11-2024 Nutrition therapy Staci Givens RD [facility] Comment on above: Dietary counseling ( Primary Dx); Type 2 diabetes mellitus without complication, without long-term current use of insulin (HCC); PCOS (polycystic ovarian syndrome) Start: 09-11-2024 End: 09-11-2024 Telemedicine consultation with patient Staci Givens RD [facility] Start: 09-11-2024 End: 09-11-2024 ambulatory LSEA SOLER Facility:[facility] Start: 09-03-2024 End: 09-03-2024 ambulatory LESA SOLER Facility[facility] Start: 09-03-2024 End: 09-03-2024 Patient encounter procedure Lesa Soler APRN.CNP Work Phone: [facility] Comment on above: Type 2 diabetes kamlesh itus without complication, without long- term current use of insulin (HCC) (Primary Dx); Chronic diarrhea; Early satiety; Chronic nausea Start: 08-28-2024 End: 08-28-2024 ambulatory MARIO MONIQUE Facility:[facility] Start: 08-28-2024 End: 08-28-2024 Patient encounter procedure Mario Monique MD Work Phone: OB/Gynecology Comment on above: Encounter for gyneco logical examination (general) (routine) without abnormal findings (Primary Dx); Screening for malignant neoplasm of cervix; PCOS (polycystic ovarian syndrome); Primary female infertility Start: 08-28-2024 End: 08-28-2024 Patient encounter status Mario Monique MD Work Phone: [facility] Work Phone: Start: 07-15-2024 End: 07-15-2024 Emergency department patient visit Oliver Marley Facility:[facility] Start: 02-23-2024 End: 02-23-2024 Emergency department patient visit No Primary Care Physician Facility:[facility] Start: 03-28-2023 End: 03-30-2023 Emergency department patient visit [facility]-Emergency Department Work Phone: Start: 10-04-2017 End: 10-04-2017 Ambulatory [facility] Procedures Date Procedure Procedure Detail Performing Clinician Start: 02-06-2025 Methadone measuremen t, urine Lesa Soler TIP PRINTER-C Work Phone: Start: 02-06-2025 Estimated creatinine clearance Lesa Soler TIP PRINTER-C Work Phone: Start: 11-08-2024 Urine albumin quantitative Lesa Soler ROADMASTER.FRICTION WELDING MACHINE OPERATOR Work Phone: Start: 11-03-2024 STREP A MOLECULAR (POC) Keely Reddy ROADMASTER.FRICTION WELDING MACHINE OPERATOR Work Phone: Start: 03-29-2023 CT of abdomen and pe lvis without contrast Start: 03-28-2023 SARS-CoV-2 & FLU Ant igen (Rapid) Start: 02-28-2017 End: 02-28-2017 Dietary management education, guidance, and counseling Collette Curiel MD Start: 02-28-2017 End: 02-28-2017 Documentation of current medications Collette Curiel MD Plan of Treatment Date Care Activity Detail Author Start: 08-28-2029 Screening for malignant neoplasm of cervix Cervical Cancer Screening [facility] Start: 11-08-2025 Annual PCP Team Chronic Disease Visit Annual PCP Team Chronic Disease Visit [facility] Start: 11-08-2025 Hepatitis B screening Urine Albumin:Creatinine Ratio [facility] Start: 11-08-2025 Pneumococcal vaccination Pneumococcal Vaccine (1 of 2 - PCV) [facility] Comment on above: Postponed from 02/06/2012 (Declined at t his time) Start: 09-11-2025 Hepatitis B surface antibody level LDL Cholesterol [facility] Start: 09-03-2025 Annual PCP Team Chronic Disease Visit Annual PCP Team Chronic Disease Visit [facility] Start: 09-03-2025 Anxiety Screening Anxiety Screening [facility] Comment on above: Postponed from 2011 (Declined at t his time) Start: 09-03-2025 Covid-19 Vaccine ( season) Covid-19 Vaccine ( season) [facility] Comment on above: Postponed from 06/02/2024 (Declined at t his time) Start: 09-03-2025 Urine microalbumin profile DTaP,Tdap,Td Vaccine (1 - Tdap) [facility] Comment on above: Postponed from 02/06/2012 (Declined at t his time) Start: 08-29-2025 End: 08-29-2025 Patient encounter procedure 08/29/2025 8:45 AM EST Office Visit OB/Gynecology [address] [place] [address] [place] [id number] [facility] [address] [place], [place] [id number] annual OB/Gynecology Comment on above: annual Start: 06-02-2025 Influenza vaccination Influenza Vaccine (Season Ended) [facility] Start: 03-31-2025 [facility] Comment on above: Postponed from 06/02/2024 (Declined at t his time) Start: 03-12-2025 Hemoglobin A1c measurement HbA1C [facility] Start: 02-06-[address] [facility] Start: 11-18-2024 End: 02-17-2025 25-hydroxyvitamin D3 [Mass/volume] in Serum or Plasma VITAMIN D 25 HYDROXY Lab Routine Procreative management Expected: 11/18/2024, Expires: 02/17/2025 [facility] Comment on above: Expected: 11/18/2024, Expires: Start: 11-18-2024 End: 02-17-2025 ANTI MULLERIAN HORMONE ANTI MULLERIAN HORMONE Lab Routine Encounter for fertility testing Expected: 11/18/2024, Expires: 02/17/2025 [facility] Comment on above: Expected: 11/18/2024, Expires: Start: 11-18-2024 End: 02-17-2025 CBC panel - Blood by Automated count COMPLETE BLOOD COUNT Lab Routine PCOS (polycystic ovarian syndrome) Irregular bleeding Expected: 11/18/2024, Expires: 02/17/2025 [facility] Comment on above: Expected: 11/18/2024, Expires: Start: 11-18-2024 End: 02-17-2025 Chlamydia trachomatis+Neisseria gonorrhoeae DNA [Presence] in Unspecified specimen by MURALI with probe detection GONORRHEA/CHLAMYDIA NAAT Lab Routine Screen for STD (sexually transmitted disease) Expected: 11/18/2024, Expires: 02/17/2025 [facility] Comment on above: Expected: 11/18/2024, Expires: Start: 11-18-2024 End: 02-17-2025 Choriogonadotropin.bet a subunit [Units/volume] in Serum or Plasma HCG QUANTITATIVE Lab Routine PCOS (polycystic ovarian syndrome) Expected: 11/18/2024, Expires: 02/17/2025 [facility] Comment on above: Expected: 11/18/2024, Expires: Start: 11-18-2024 End: 02-17-2025 DHEA-S BLD DHEA-S BLD Lab Routine Encounter for fertility testing Expected: 11/18/2024, Expires: 02/17/2025 [facility] Comment on above: Expected: 11/18/2024, Expires: Start: 11-18-2024 End: 02-17-2025 Estradiol (E2) [Mass/volume] in Serum or Plasma ESTRADIOL-17B BLD Lab Routine Encounter for fertility testing Expected: 11/18/2024, Expires: 02/17/2025 [facility] Comment on above: Expected: 11/18/2024, Expires: Start: 11-18-2024 End: 02-17-2025 Hemoglobin A1c in Blood HEMOGLOBIN A1C Lab Routine Procreative management Expected: 11/18/2024, Expires: 02/17/2025 [facility] Comment on above: Expected: 11/18/2024, Expires: Start: 11-18-2024 End: 02-17-2025 Hepatitis B virus core Ab [Presence] in Serum HEPATITIS B CORE ANTIBODY TOTAL Lab Routine Screening for STD (sexually transmitted disease) Expected: 11/18/2024, Expires: 02/17/2025 [facility] Comment on above: Expected: 11/18/2024, Expires: Start: 11-18-2024 End: 02-17-2025 Hepatitis B virus surface Ag [Presence] in Serum HEPATITIS B SURFACE ANTIGEN Lab Routine Screening examination for STD (sexually transmitted disease) Expected: 11/18/2024, Expires: 02/17/2025 [facility] Comment on above: Expected: 11/18/2024, Expires: Start: 11-18-2024 End: 02-17-2025 Hepatitis C virus Ab [Presence] in Serum HEPATITIS C ANTIBODY IA WITH CONFIRMATION Lab Routine Screening examination for STD (sexually transmitted disease) Expected: 11/18/2024, Expires: 02/17/2025 [facility] Comment on above: Expected: 11/18/2024, Expires: Start: 11-18-2024 End: 02-17-2025 HIV 1+2 Ab [Presence] in Serum or Plasma by Immunoassay HIV 1/2 COMBO WITH REFLEX TO DIFFERENTIATION Lab Routine Screening examination for STD (sexually transmitted disease) Expected: 11/18/2024, Expires: 02/17/2025 [facility] Comment on above: Expected: 11/18/2024, Expires: Start: 11-18-2024 End: 02-17-2025 Progesterone [Mass/volume] in Serum or Plasma PROGESTERONE Lab Routine Encounter for fertility testing Expected: 11/18/2024, Expires: 02/17/2025 [facility] Comment on above: Expected: 11/18/2024, Expires: Start: 11-18-2024 End: 02-17-2025 Prolactin [Mass/volume] in Serum or Plasma PROLACTIN Lab Routine Encounter for fertility testing Expected: 11/18/2024, Expires: 02/17/2025 [facility] Comment on above: Expected: 11/18/2024, Expires: Start: 11-18-2024 End: 02-17-2025 RUBELLA IGG ANTIBODY RUBELLA IGG ANTIBODY Lab Routine Procreative management Expected: 11/18/2024, Expires: 02/17/2025 [facility] Comment on above: Expected: 11/18/2024, Expires: Start: 11-18-2024 End: 02-17-2025 SYPHILIS TREPONEMAL W/REFLEX SYPHILIS TREPONEMAL W/REFLEX Lab Routine Screening examination for STD (sexually transmitted disease) Expected: 11/18/2024, Expires: 02/17/2025 [facility] Comment on above: Expected: 11/18/2024, Expires: Start: 11-18-2024 End: 02-17-2025 Testosterone [Mass/volume] in Serum or Plasma TESTOSTERONE, TOTAL BY IMMUNOASSAY (ADULT MALES, OR INDIVIDUALS ON TESTOSTERONE THERAPY) Lab Routine Encounter for fertility testing Expected: 11/18/2024, Expires: 02/17/2025 [facility] Comment on above: Expected: 11/18/2024, Expires: Start: 11-18-2024 End: 02-17-2025 Thyrotropin [Units/volume] in Serum or Plasma THYROID STIMULATING HORMONE Lab Routine Encounter for fertility testing Expected: 11/18/2024, Expires: 02/17/2025 [facility] Comment on above: Expected: 11/18/2024, Expires: Start: 11-18-2024 End: 02-17-2025 TYPE + SCREEN TYPE + SCREEN Blood Bank Routine Procreative management Expected: 11/18/2024, Expires: 02/17/2025 [facility] Work Phone: Comment on above: Expected: 11/18/2024, Expires: Start: 11-18-2024 End: 11-18-2025 US Uterus and Fallopian tubes W saline IU SONOHYSTEROGRAPHY (SIS) US [facility] Imaging Routine PCOS (polycystic ovarian syndrome) Encounter for fertility testing Irregular bleeding Expected: 11/18/2024, Expires: 11/18/2025 [facility] Comment on above: Expected: 11/18/2024, Expires: Start: 11-18-2024 End: 02-17-2025 VARICELLA ZOSTER IGG VARICELLA ZOSTER IGG Lab Routine Procreative management Expected: 11/18/2024, Expires: 02/17/2025 [facility] Comment on above: Expected: 11/18/2024, Expires: Start: 11-18-2024 End: 11-18-2024 Patient encounter procedure 11/18/2024 1:00 PM EST Office Visit [facility] [address] [place] [address] Gema Small PA-C [address] [place] [address] PCOS (polycystic ovarian syndrome) [E28.2] [facility] Comment on above: PCOS (polycystic ovarian syndrome) [E28. 2] Start: 11-08-2024 Depression Screening Depression Screening [facility] Comment on above: Postponed from 2011 (Declined at t his time) Start: 11-08-2024 End: 11-08-2024 Patient encounter procedure 11/08/2024 1:40 PM EST Office Visit [facility] [address] [place] [address] Lesa Soler APRN.FRICTION WELDING MACHINE OPERATOR [address] [place] [address] 6-8 WK F/U DM [facility] Comment on above: 6-8 WK F/U DM Start: 10-30-2024 End: 10-30-2024 Follow-up encounter 10/30/2024 8:00 AM EST [facility] [address] [address] Staci Givens, CARLOS [address] [place] [address] follow up [facility] Comment on above: follow up Start: 10-22-2024 End: 10-22-2024 Patient encounter procedure 10/22/2024 1:00 PM EST Office Visit [facility] [address] [place], [place] [id number] Lesa Soler, ROADMASTER.FRICTION WELDING MACHINE OPERATOR [address] [place] [address] 6-8 WK F/U DM [facility] Comment on above: 6-8 WK F/U DM Start: 10-22-2024 End: 10-22-2024 Follow-up encounter 10/22/2024 8:00 AM EST [facility] [address] [address] Staci Givens, RD [address] [place] [address] follow up [facility] Comment on above: follow up Start: 09-03-2024 End: 09-03-2024 Patient encounter procedure 09/03/2024 1:20 PM EST Office Visit [facility] [address] [place] [address] Lesa Soler APRN.FRICTION WELDING MACHINE OPERATOR [address] [place] [address] WebAppointment Request #[id number] [facility] Comment on above: WebAppointment Request #[id number] Start: 06-02-2024 Covid-19 Vaccine ( season) Covid-19 Vaccine ( season) [facility] Start: 06-02-2024 Influenza vaccination Influenza Vaccine (#1) [facility] Start: 03-28-2023 Referral to service [facility] Start: 03-28-2023 End: 03-28-2023 Suicide precautions [facility] Start: 03-07-2017 End: 03-07-2017 Appointment Appointment [facility] [employer] Work Phone: Start: 02-28-2017 End: 02-28-2017 Appointment Appointment [facility] [employer] Work Phone: Start: 02-28-2017 End: 03-01-2017 Follow Up Appt Other Follow Up Appt Other [facility] [employer] Work Phone: Start: 02-28-2017 End: 02-28-2017 Uppr gi endoscopy, diagnosis Upper gastrointestinal endoscopy [facility] [employer] Work Phone: Start: 2014 Screening for malignant neoplasm of cervix Cervical Cancer Screening [facility] Start: 02-06-2012 Hepatitis B Vaccine (1 of 3 - 19+ 3-dose series) Hepatitis B Vaccine (1 of 3 - 19+ 3-dose series) [facility] Start: 02-06-2012 Pneumococcal vaccination Pneumococcal Vaccine (1 of 2 - PCV) [facility] Start: 02-06-2012 Urine microalbumin profile DTaP,Tdap,Td Vaccine (1 - Tdap) [facility] Start: 2011 Anxiety Screening Anxiety Screening [facility] Start: 2011 Depression Screening Depression Screening [facility] Start: 2011 Hepatitis C screening Hepatitis C Screening [facility] Start: 2011 HIV screening HIV Screening [facility] Start: 2003 Diabetic foot examination Diabetic Foot Exam [facility] Start: 2003 Glaucoma screening Dilated Retinal Exam [facility] Start: 2003 Hepatitis B screening Urine Albumin:Creatinine Ratio [facility] Start: 1999 Pneumococcal vaccination Pneumococcal Vaccine (1 of 2 - PCV) [facility] COVID & INFLUENZA A/ B & RSV PCR, ROUTINE COVID & INFLUENZA A/B & RSV PCR, ROUTINE Microbiology Routine URI, acute Ordered: 11/03/2024 [facility] Work Phone: Comment on above: Ordered: 11/03/2024 PAP TEST PAP TEST Lab Rou vi Screening for malignant neoplasm of cervix 08/28/2024 10:22 AM EST [facility] Work Phone: Patient Education [facility] Work Phone: Patient referral [facility] Work Phone: End: 12-16-2025 RF Uterus and Fallopian tubes Views W contrast IU XR HYSTEROSALPINGOGRAM Radiology Routine Encounter for fertility testing H/O unilateral salpingectomy 1 Occurrences starting 11/18/2024 until 12/16/2025 [facility] Comment on above: 1 Occurrences starting 11/18/2024 until 12/16/2025 Payers Date Payer Category Payer Medicaid [employer] Member [place] bscriber Plan / Payer (Effective 2024-Present) Name: Joshua Choudhary Relation to Subscriber: Self Name: Joshua Choudhary Payer ID: [id number] (NAIC) Group ID: Not on file Type: Medicaid Address: [address] [place] [address] [id number] 2024 Private Health Insurance [employer]NA HU[employer]NA MEDICAID [facility] [id number] 2024-Present [address] [place] [address] Medicaid [id number] 2024 Medicaid [id number] 2024 Self-pay [id number] 2016 Unknown [facility] COMM[employer] [facility]AN [id number] 1993 Unknown [id number] Unknown KURT [id number] Unknown [facility] [id number] Unknown [id number] Unknown [id number] Unknown [id number] Unknown [id number] Social History Date Type Detail Facility Start: 03-28-2023 Tobacco smoking status NHIS Unknown if ever smoked [facility] Start: 01-09-2019 Alone [facility] Start: 1995 Sex Assigned At Female W [facility] Start: 08-28-2024 End: 02-06-2025 Tobacco smoking status NHIS Never smoked tobacco [facility] Start: 08-28-2024 Tobacco use and exposure Smokeless tobacco non-user [facility] Start: 08-28-2024 End: 11-27-2024 Alcoholic beverage intake Ex-drinker (finding) [facility] Start: 08-28-2024 End: 09-11-2024 History of Social function [facility] Start: 08-28-2024 End: 09-11-2024 Tobacco use panel [facility] National Score (1-100), lower number is lower risk 66 [facility] Start: 1995 Sex assigned at Not on file [facility] NEGATED: Highlighted row [facility] Functional Status Date Assessment Result Facility 11-08-2014 Are you deaf, or do you have serious difficulty hearing No 11/08/2014 11:42 AM Charlene Rodas MA No [facility] 11-08-2014 Are you blind, or do you have serious difficulty seeing, even when wearing glasses No 11/08/2014 11:42 AM Charlene Rodas MA No [facility] 11-08-2014 Do you have serious difficulty walking or climbing stairs No 11/08/2014 11:42 AM Charlene Rodas MA No [facility] 11-08-2014 Do you have difficul ty dressing or bathing No 11/08/2014 11:42 AM Charlene Rodas MA No [facility] 11-08-2014 Because of a physica l, mental, or emotional condition, do you have difficulty doing errands alone such as visiting a physician's office or shopping No 11/08/2014 11:42 AM Charlene Rodas MA [facility] Mental Status Date Assessment Result Facility 11-08-2014 Because of a physica l, mental, or emotional condition, do you have serious difficulty concentrating, remembering, or making decisions No 11/08/2014 11:42 AM Charlene Rodas MA No [facility] Clinical Notes 03-28-2023 to 02-14-2025 Naomie Mcguire LPN - 02/14/2025 10:59 AM EDT Note Date & Type Note Facility 02-14-2025 Note HNO ID: [id number] Author: NAOMIE MCGUIRE LPN Service: ? Author Type: LICENSED NURSE Type: Progress Notes Filed: 02/14/2025 11:01 Note Text: ED Follow-Up Note Provider Action / FYI: Call completed by: SHAISTA Patient seen in ED: Out of Network ED Contact made with Patient: No, left message. Naomie Mcguire LPN February 14, 2025 11:00 AM [facility] 02-14-2025 History of Present illness Narrative ED Follow-Up Note Provider Action / FYI: Call completed by: SHAISTA Patient seen in ED: Out of Network ED Contact made with Patient: No, left message. Naomie Mcguire LPN February 14, 2025 11:00 AM documented in this encounter [facility] 02-14-2025 Note Patient Outreach (AG FAMPLE) JOSHUA CHOUDHARY ([id number]) 1995 F Date Time Provider Department 02/14/25 LESA SOLER During your visit today, we recorded the following information about you: Naomie Mcguire LPN 02/14/2025 11:01 AM Signed ED Follow-Up Note Provider Action / FYI: Call completed by: SHAISTA Patient seen in ED: Out of Network ED Contact made with Patient: No, left message. Naomie Mcguire LPN February 14, 2025 11:00 AM Allergies As of Date: 02/14/2025 (No Known Allergies) Date Reviewed: 11/27/2024 Reviewed by: Lesa Soler APRN.FRICTION WELDING MACHINE OPERATOR - Fully Assessed Reason for Visit: ED Follow-up [821] Cmt: [place] [facility] 02/06/2025 and [facility] ED 02/08/2025 Prescriptions as of 02/14/2025 - venlafaxine (EFFEXOR) 75 mg tablet Take 75 mg by mouth once daily. Taking 112 mg a day Problem List As Of Date 02/14/2025 Noted Resolved Abdominal pain, epigastric [R10.13] 05/16/2017 Gallstones [K80.20] 08/28/2017 RUQ pain [R10.11] 09/28/2017 Type 2 diabetes mellitus without complication, *09/03/2024 Anxiety [F41.9] 09/22/2024 Polycystic ovarian syndrome [E28.2] 02/28/2017 Secondary amenorrhea [N91.1] 09/22/2024 Suicidal ideation [R45.851] 09/22/2024 Chronic diarrhea [K52.9] 09/22/2024 Dyslipidemia [E78.5] 11/08/2024 Hirsutism [L68.0] 11/27/2024 Encounter Status:Closed by NAOMIE MCGUIRE on 02/14/25 [facility] 02-06-2025 Discharge summary Note Date/Time February 06, 2025 1:47pm [facility] Medical Records Department [address] [place] [address] Emergency Department Summary 02/06/25 MR#: [id number] Acct: [id number] Name: JOSHUA CHOUDHARY Rep #:[id number] : 1995 30 From: Juan Tapia MD PCP: Lesa Soler NP-Katlyn Status:REG ER Location: ED HPI History of Present Illness Chief Complaint: Anxiety Narrative Narrative: 30-year-old female past medical history of anxiety disorder for which she takes Effexor and Abilify given to her by a psychiatrist presents with panic attack that started around 530 this morning, approximately 4-1/2 hours ago. She statesthat she feels overwhelmed and started feeling anxious. Her last panic attack was within the last year. She states she had to come to the emergency department for it previously. She states that it is associated with nausea and vomiting. However, this is similar to her previous panic attacks. She feels heart palpitations as well. She states she wants her panic to stop. [facility] Medical History Anxiety disorder Cannabis use disorder Cyclic vomiting syndrome PCOS (polycystic ovarian syndrome) Home Medications ?Medication ?Instructions ?Recorded ?Last Taken ?Type metformin 1,000 mg tablet 1,000 mg PO BID 03/28/23 Unk nown History duloxetine 30 mg capsule,delayed 30 mg PO DAILY Unknown History release (Cymbalta) oxycodone-acetaminophen 5 mg-325 1 tab PO Q6H PRN pain 3 days #12 02/23/24 Unknown Rx mg tablet (Percocet) tabs progesterone micronized 200 mg 200 mg PO QHS 02/23/24 Unknown History capsule promethazine 25 mg tablet 25 mg PO TID PRN nausea and 02/23/24 Unknown Rx vomiting 7 days #21 tabs propranolol 80 mg capsule,24 20 mg PO BID PRN anxiety 02/23/24 Unknown History hr,extended release lansoprazole 30 mg capsule,delayed 30 mg PO DAILY #14 caps 07/15/24 Unknown Rx release (Prevacid) ondansetron 4 mg disintegrating 4 mg PO Q8H PRN PRN Na usea #10 tabs 07/15/24 Unknown Rx tablet ondansetron 4 mg disintegrating 4 mg PO Q8H PRN PRN Na usea #10 tabs 09/30/24 Unknown Rx tablet Allergy/AdvReac Type Severity Reaction Status Date / Time No Known Allergies Allergy Verified 02/06/25 09:39 Family History Mother Cancer skin Surgical History right salpingectomy FH: cholecystectomy Social History housing: apartment number of children: 0 current occupational status: employed current occupation: [employer] Smoking Status: Never smoker Smokeless tobacco user: chewing tobacco alcohol intake: current alcohol intake frequency: holidays/special occasions only substance use type: marijuana seatbelt use: always do you feel safe at home: Yes additional social history: [employer] ROS ROS ED ROS Narrative Positive anxiety. Positive palpitations. Feels heart racing. Denies chest pain or shortness of breath. Positive nausea and vomiting which is associated with her panic attack. No exacerbating or alleviating factors. EXAM Physical Exam Narrative Exam Narrative: Afebrile. Vital signs noted. Nontoxic-appearing. Cardiovascular examination reveals mild tachycardia. Lungs clear to auscultation bilaterally. Abdomen soft and nontender without guarding or rebound. Neurological examination nonfocal nonlateralizing. Positive anxiety on psychiatric examination, no suicidal ideation. Const Vital Signs: 02/06/25 09:37 02/06/25 09:37 02/06/25 11:52 Temperature 97 F L Temperature Source Temporal Pulse Rate 122 H 115 H 119 H Respiratory Rate 22 H 20 H Blood Pressure 141/76 H 140/91 H Blood Pressure Mean 97 107 Pulse Ox 98 Oxygen Delivery Method Room Air 02/06/25 13:00 Temperature Temperature Source Pulse Rate 89 Respiratory Rate 14 Blood Pressure 141/76 H Blood Pressure Mean 97 Pulse Ox 98 Oxygen Delivery Method Room Air MDM MDM MDM Narrative Medical decision making narrative: I reviewed the patient's prior records. While the differential diagnosis does include nausea and vomiting from cannabis use disorder and she has a history of cyclic vomiting, I reviewed her prior ED visit and she did have medical clearance labs drawn previously but did receive Ativan for anxiety. Initially, in discussion with the patient she will be given Ativan 1 mg intramuscularly andreassessed. Should she become suicidal or still have nausea and vomiting, I do feel that laboratory work would be appropriate at that time, but she will be reassessed after Ativan to see if this breaks her anxiety. Upon repeat examination, she states her palpitation and anxiety has improved butshe is still nauseated and has abdominal pain. I do not feel that she requires CT imaging currently. I did review her laboratory work she has a leukocytosis of 14.8 but when compared to prior it is much lower than previous. She seems tohave a chronic leukocytosis. Hemoglobin 13.5 with hematocrit 40.4. Platelet count normal at 324. Sodium normal at 141 with potassium 4.7. Normal anion gapof 11. BUN normal at 8 with creatinine 0.82, no dehydration. LFTs are grossly unremarkable. Lipase normal at 20. Serum is negative. I did obtain ethyl alcohol level in the event that she would require evaluation by the crisiscounselor but she denies any suicidal ideation. As her anxiety has improvded I feel she can be discharged to follow-up. I offered to write her something for nausea, but she declined and would like to be discharged and is motivated for discharge. She can follow-up with her primary care provider and her psychiatrist as needed. Return instructions to the emergency department were reviewed. Disposition is discharged home in stable condition. History & Record Review Discussion w/independent historian: Patient Lab Data Attestation: I reviewed the patient's lab results. Labs: Laboratory Results - last 24 hr 02/06/25 11:44 WBC 14.8 H RBC 4.71 Hgb 13.5 Hct 40.4 MCV 85.8 MCH 28.7 MCHC 33.4 RDW Std Deviation 41.2 RDW Coeff of Jennifer 13.2 Plt Count 324 MPV 11.3 Immature Gran % (Auto) 0.800 Neut % (Auto) 82.8 H Lymph % (Auto) 13.9 L [place] % (Auto) 2.3 Eos % (Auto) 0.0 Baso % (Auto) 0.2 Absolute Neuts (auto) 12.2 H Absolute Lymphs (auto) 2.06 Nucleated RBC % 0 Sodium 141 Potassium 4.7 Chloride 105 Carbon Dioxide 25.0 Anion Gap 11 BUN 8 Creatinine 0.82 Estim Creat Clear Calc 106.76 Est GFR (MDRD) Non-Af 97 BUN/Creatinine Ratio 9.7 L Glucose 177 H Calcium 11.2 H Total Bilirubin 0.41 AST 27 ALT 23 Alkaline Phosphatase 65 Total Protein 7.9 Albumin 4.7 Globulin 3.2 Albumin/Globulin Ratio 1.5 Lipase 20 Serum , Qual NEGATIVE Ethyl Alcohol < 10.1 Discharge Plan Triage Chief Complaint: Anxiety ED Provider: Juan Tapia Dx/Rx/DC Orders Clinical Impression: Anxiety disorder, Panic attack, Abdominal pain Instructions: ED Abdominal Pain Unkn Cause Fem, ED Panic Attack Prescriptions: No Action metformin 1,000 mg Tablet 1,000 mg PO BID ondansetron 4 mg tablet,disintegrating 4 mg PO Q8H PRN PRN (Reason: Nausea) Qty: 10 0RF progesterone micronized 200 mg capsule 200 mg PO QHS propranolol 80 mg capsule,extended release 24 hr 20 mg PO BID PRN (Reason: anxiety) Rx Instructions: half a tablet to 2 tablets up to twice a day duloxetine [Cymbalta] 30 mg capsule,delayed release(DR/EC) 30 mg PO DAILY Rx Instructions: one capsule for 14 days and then increase to 2capsule promethazine 25 mg tablet 25 mg PO TID PRN (Reason: nausea and vomiting) 7 Days Qty: 21 0RF oxycodone-acetaminophen [Percocet] 5-325 mg tablet 1 tab PO Q6H PRN (Reason: pain) 3 Days Qty: 12 0RF ondansetron 4 mg tablet,disintegrating 4 mg PO Q8H PRN PRN (Reason: Nausea) Qty: 10 0RF lansoprazole [Prevacid] 30 mg capsule,delayed release(DR/EC) 30 mg PO DAILY Qty: 14 0RF Primary Care Provider: Lesa Soler NP Referrals: Lesa Soler NP, [employer]C [Primary Care Provider] - 3-5 Days if not improving Activity Restrictions/Additional Instructions: Follow-up with your psychiatrist as well. Return to the emergency department with new or worsening symptoms. Print Language: Tongan Disposition Disposition: Home, Self Care What to do if you have Problems For any increased pain, shortness of breath, bleeding, nausea or vomiting, chestpain, or any unexpected problems, contact your Primary Care Provider. Call [facility] ([phone]) or report to the closest Emergency Room. Call 911 if necessary. 02/06/25 1347 <Electronically signed by Juan Tapia MD> Cosigner Signature (if applicable): CC: FREDY Soler ~ Signed [facility] Work Phone: [phone]) 207-948205-08-2025 Discharge summary [facility] Medical Records Department [address] [place] [address] Emergency Department Summary 02/06/25 MR#: [id number] Acct: [id number] Name: JOSHUA CHOUDHARY Rep #:[id number] : 1995 30 From: Juan Tapia MD PCP: FREDY Darden Status:REG ER Location: ED HPI History of Present Illness Chief Complaint: Anxiety Narrative Narrative: 30-year-old female past medical history of anxiety disorder for which she takes Effexor and Abilifygiven to her by a psychiatrist presents with panic attack that started around 530 this morning, approximately 4-1/2 hours ago. She statesthat she feels overwhelmed and started feeling anxious. Her last panic attack was within the last year. She states she had to come to the emergency department forit previously. She states that it is associated with nausea and vomiting. However, this is similar to her previous panic attacks. She feels heart palpitations as well. She states she wants her panic to stop. [facility] Medical History Anxiety disorder Cannabis use disorder Cyclic vomiting syndrome PCOS (polycystic ovarian syndrome) Home Medications ?Medication ?Instructions ?Recorded ?Last Taken ?Type metformin 1,000 mg tablet 1,000 mg PO BID 03/28/23 Unk nown History duloxetine 30 mg capsule,delayed 30 mg PO DAILY Unknown History release (Cymbalta) oxycodone-acetaminophen 5 mg-325 1 tab PO Q6H PRN pain 3 days #12 02/23/24 Unknown Rx mg tablet (Percocet) tabs progesterone micronized 200 mg 200 mg PO QHS 02/23/24 Unknown History capsule promethazine 25 mg tablet 25 mg PO TID PRN nausea and 02/23/24 Unknown Rx vomiting 7 days #21 tabs propranolol 80 mg capsule,24 20 mg PO BID PRN anxiety 02/23/24 Unknown History hr,extended release lansoprazole 30 mg capsule,delayed 30 mg PO DAILY #14 caps 07/15/24 Unknown Rx release (Prevacid) ondansetron 4 mg disintegrating 4 mg PO Q8H PRN PRN Na usea #10 tabs 07/15/24 Unknown Rx tablet ondansetron 4 mg disintegrating 4 mg PO Q8H PRN PRN Na usea #10 tabs 09/30/24 Unknown Rx tablet Allergy/AdvReac Type Severity Reaction Status Date / Time No Known Allergies Allergy Verified 02/06/25 09:39 Family History Mother Cancer skin Surgical History right salpingectomy FH: cholecystectomy Social History housing: apartment number of children: 0 current occupational status: employed current occupation: [employer] Smoking Status: Never smoker Smokeless tobacco user: chewing tobacco alcohol intake: current alcohol intake frequency: holidays/special occasions only substance use type: marijuana seatbelt use: always do you feel safe at home: Yes additional social history: [employer] ROS ROS ED ROS Narrative Positive anxiety. Positive palpitations. Feels heart racing. Denies chest pain or shortness of breath. Positive nausea and vomiting which is associated with her panic attack. No exacerbating or alleviating factors. EXAM Physical Exam Narrative Exam Narrative: Afebrile. Vital signs noted. Nontoxic-appearing. Cardiovascular examination reveals mild tachycardia. Lungs clear to auscultation bilaterally. Abdomen soft and nontender without guarding or rebound. Neurological examination nonfocal nonlateralizing. Positive anxiety on psychiatric examination, no suicidal ideation. Const Vital Signs: 02/06/25 09:37 02/06/25 09:37 02/06/25 11:52 Temperature 97 F L Temperature Source Temporal Pulse Rate 122 H 115 H 119 H Respiratory Rate 22 H 20 H Blood Pressure 141/76 H 140/91 H Blood Pressure Mean 97 107 Pulse Ox 98 Oxygen Delivery Method Room Air 02/06/25 13:00 Temperature Temperature Source Pulse Rate 89 Respiratory Rate 14 Blood Pressure 141/76 H Blood Pressure Mean 97 Pulse Ox 98 Oxygen Delivery Method Room Air MDM MDM MDM Narrative Medical decision making narrative: I reviewed the patient's prior records. While the differential diagnosis does include nausea and vomiting from cannabis use disorder and she has a history of cyclic vomiting, I reviewed her prior ED visit and she did have medical clearance labs drawn previously but did receive Ativan for anxiety. Initially, in discussion with the patient she will be given Ativan 1 mg intramuscularly andreassessed. Should she become suicidal or still have nausea and vomiting, I do feel that laboratory work wouldbe appropriate at that time, but she will be reassessed after Ativan to see if this breaks her anxiety. Upon repeat examination, she states her palpitation and anxiety has improved butshe is still nauseated and has abdominal pain. I do not feel that she requires CT imaging currently. I did review her laboratory work she has a leukocytosis of 14.8 but when compared to prior it is much lower than previous. She seems tohave a chronic leukocytosis. Hemoglobin 13.5 with hematocrit 40.4. Platelet count normal at 324. Sodium normal at 141 with potassium 4.7. Normal anion gapof 11. BUN normal at 8 with creatinine 0.82, no dehydration. LFTs are grossly unremarkable. Lipase normal at 20. Serum is negative. I did obtain ethyl alcohol level in the event that she would require evaluation by the crisiscounselor but she denies any suicidal ideation. As her anxiety has improvded I feel she can bedischarged to follow-up. I offered to write her something for nausea, but she declined and would like to be discharged and is motivated for discharge. She can follow-up with her primary care providerand her psychiatrist as needed. Return instructions to the emergency department were reviewed. Disposition is discharged home in stable condition. History & Record Review Discussion w/independent historian: Patient Lab Data Attestation: I reviewed the patient's lab results. Labs: Laboratory Results - last 24 hr 02/06/25 11:44 WBC 14.8 H RBC 4.71 Hgb 13.5 Hct 40.4 MCV 85.8 MCH 28.7 MCHC 33.4 RDW Std Deviation 41.2 RDW Coeff of Jennifer 13.2 Plt Count 324 MPV 11.3 Immature Gran % (Auto) 0.800 Neut % (Auto) 82.8 H Lymph % (Auto) 13.9 L [place] % (Auto) 2.3 Eos % (Auto) 0.0 Baso % (Auto) 0.2 Absolute Neuts (auto) 12.2 H Absolute Lymphs (auto) 2.06 Nucleated RBC % 0 Sodium 141 Potassium 4.7 Chloride 105 Carbon Dioxide 25.0 Anion Gap 11 BUN 8 Creatinine 0.82 Estim Creat Clear Calc 106.76 Est GFR (MDRD) Non-Af 97 BUN/Creatinine Ratio 9.7 L Glucose 177 H Calcium 11.2 H Total Bilirubin 0.41 AST 27 ALT 23 Alkaline Phosphatase 65 Total Protein 7.9 Albumin 4.7 Globulin 3.2 Albumin/Globulin Ratio 1.5 Lipase 20 Serum , Qual NEGATIVE Ethyl Alcohol < 10.1 Discharge Plan Triage Chief Complaint: Anxiety ED Provider: Juan Tapia Dx/Rx/DC Orders Clinical Impression: Anxiety disorder, Panic attack, Abdominal pain Instructions: ED Abdominal Pain Unkn Cause Fem, ED Panic Attack Prescriptions: No Action metformin 1,000 mg Tablet 1,000 mg PO BID ondansetron 4 mg tablet,disintegrating 4 mg PO Q8H PRN PRN (Reason: Nausea) Qty: 10 0RF progesterone micronized 200 mg capsule 200 mg PO QHS propranolol 80 mg capsule,extended release 24 hr 20 mg PO BID PRN (Reason: anxiety) Rx Instructions: half a tablet to 2 tablets up to twice a day duloxetine [Cymbalta] 30 mg capsule,delayed release(DR/EC) 30 mg PO DAILY Rx Instructions: one capsule for 14 days and then increase to 2capsule promethazine 25 mg tablet 25 mg PO TID PRN (Reason: nausea and vomiting) 7 Days Qty: 21 0RF oxycodone-acetaminophen [Percocet] 5-325 mg tablet 1 tab PO Q6H PRN (Reason: pain) 3 Days Qty: 12 0RF ondansetron 4 mg tablet,disintegrating 4 mg PO Q8H PRN PRN (Reason: Nausea) Qty: 10 0RF lansoprazole [Prevacid] 30 mg capsule,delayed release(DR/EC) 30 mg PO DAILY Qty: 14 0RF Primary Care Provider: Lesa Soler NP Referrals: Lesa Soler NP, TIP PRINTER-C [Primary Care Provider] - 3-5 Days if not improving Activity Restrictions/Additional Instructions: Follow-up with your psychiatrist as well. Return to the emergency department with new or worsening symptoms. Print Language: Tongan Disposition Disposition: Home, Self Care What to do if you have Problems For any increased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 Psychiatric: Attention and Perception: Attention and perception normal. Mood and Affect: Mood and affect normal. Behavior: Behavior normal. Behavior is cooperative. Latest Ref [facility] 09/11/2024 Protein, Total 6.3 - 8.0 g/dL 7.2 Albumin 3.9 - 4.9 g/dL 4.5 Calcium 8.5 - 10.2 mg/dL 10.5 (H) Bilirubin, Total 0.2 - 1.3 mg/dL 0.3 Alkaline Phosphatase 34 - 123 U/L 62 AST 13 - 35 U/L 24 ALT 7 - 38 U/L 26 Glucose 74 - 99 mg/dL 86 BUN 7 - 21 mg/dL 5 (L) Creatinine 0.58 - 0.96 mg/dL 0.88 Sodium 136 - 144 mmol/L 142 Potassium 3.7 - 5.1 mmol/L 4.2 Chloride 98 - 107 mmol/L 105 CO2 22 - 30 mmol/L 26 Anion Gap 8 - 15 mmol/L 11 eGFR >=60 mL/min/1.73m 90 WBC 3.70 - 11.00 k/uL 11.48 (H) RBC 3.90 - 5.20 m/uL 5.04 Hemoglobin 11.5 - 15.5 g/dL 14.8 Hematocrit 36.0 - 46.0 % 44.9 MCV 80.0 - 100.0 fL 89.1 MCH 26.0 - 34.0 pg 29.4 MCHC 30.5 - 36.0 g/dL 33.0 RDW-CV 11.5 - 15.0 % 13.8 Platelet Count 150 - 400 k/uL 243 MPV 9.0 - 12.7 fL 11.8 Absolute nRBC <0.01 k/uL <0.01 Cholesterol, Total <200 mg/dL 208 (H) Triglyceride <150 mg/dL 307 (H) HDL Cholesterol >39 mg/dL 27 (L) Non HDL Cholesterol <130 mg/dL 181 (H) Fasting Time hrs 12 VLDL Cholesterol <30 mg/dL 61 (H) TC:HDL Ratio <5.10 7.70 (H) LDL Cholesterol <100 mg/dL 120 (H) LDL:HDL Ratio <2.54 4.44 (H) Hemoglobin A1C 4.3 - 5.6 % 5.5 Estimated Average Glucose mg/dL 111 TSH 0.270 - 4.200 mIU/L 0.917 Lipase 16 - 61 U/L 33 ASSESSMENT/PLAN: 1. Type 2 diabetes mellitus without complication, without long-term current use of insulin (HCC) - ICD9: 250.00, ICD10: E11.9 (primary diagnosis) - Controlled - Counseled on healthy diet and regular exercise - Follow up in March sooner should any other issues arise. - ALBUMIN/CREATININE RATIO, URINE 2. Dyslipidemia - ICD9: 272.4, ICD10: E78.5 - Controlled - Counseled on healthy diet and regular exercise 3. Hirsutism - ICD9: 704.1, ICD10: L68.0 Wants to avoid oral medications if possible Referral placed to dermatology - CONSULT TO DERMATOLOGY Lesa Soler APRN.CNP [facility] History of Present illness Narrative* Keely Reddy APRN.CNP - 11/03/2024 11:03 AM EST This note was created using NoteWriter. Subjective Joshua Choudhary is a 29 year old female. 29 year old female with PMH PCOS and DM presents for illness Acute onset 2 to 3 days +sore throat +body aches +runny nose + congestion +headache +chills +low grade fever +cough Denies N/V/D Denies CP Denies dyspnea +cannabis usage Denies tobacco usage Has used Theraflu with relief of symptoms The history is provided by the patient. No assistant speech language pathologist was used. URI She complains of cough. There is no chest tightness, difficulty breathing, frequent throat clearing, hemoptysis, hoarse voice, shortness of breath, sputum production or wheezing. This is a new problem. Episode onset: 2 to 3 days ago. The problem occurs constantly. The problem has been unchanged. The cough is non- productive. Associated symptoms include a fever, headaches, malaise/fatigue, myalgias, nasal congestion, postnasal drip, rhinorrhea, sneezing and a sore throat. Pertinent negatives include no appetite change, chest pain, dyspnea on exertion, ear congestion, ear pain, heartburn, orthopnea, PND, sweats, trouble swallowing or weight loss. Her symptoms are aggravated by nothing. Her symptoms are alleviated by nothing. She reports no improvement on treatment. There are no known risk factors for lung disease. There is no history of asthma, bronchiectasis, bronchitis, COPD, emphysema or pneumonia. PAST MEDICAL HISTORY Diagnosis Date Cholelithiases Depression Panic disorder PCOS (polycystic ovarian syndrome) Type 2 diabetes (HCC) PAST SURGICAL HISTORY Procedure Laterality Date COLONOSCOPY FLX DX W/COLLJ SPEC WHEN PFRMD 07/03/2018 Colonoscopy ESOPHAGOGASTRODUODENOSCOPY TRANSORAL DIAGNOSTIC 07/03/2018 EGD LAPAROSCOPY SURG CHOLECYSTECTOMY 10/04/2017 Cholecystectomy, lap Jimenez PAST SURGICAL HISTORY OF Right 2014 rght salpingectomy REMOVAL GALLBLADDER ALLERGIES Patient has no known allergies. MEDICATIONS venlafaxine (EFFEXOR) 75 mg tablet Take 75 mg by mouth once daily. FAMILY HISTORY Problem Relation Age of Onset Diabetes Maternal Grandfather Social History Tobacco Use Smoking status: Never Smokeless tobacco: Never Vaping Use Vaping status: Never Used Substance Use Topics Alcohol use: Not Currently Drug use: Yes Types: Marijuana Comment: daily Review of Systems Constitutional: Positive for fever and malaise/fatigue. Negative for appetite change and weight loss. HENT: Positive for congestion, postnasal drip, rhinorrhea, sneezing and sore throat. Negative for ear pain, hoarse voice and trouble swallowing. Eyes: Negative for pain, discharge, redness and itching. Respiratory: Positive for cough. Negative for apnea, hemoptysis, sputum production, shortness of breath and wheezing. Cardiovascular: Negative for chest pain, dyspnea on exertion and PND. Gastrointestinal: Negative for abdominal pain, diarrhea, heartburn, nausea and vomiting. Musculoskeletal: Positive for myalgias. Negative for arthralgias and back pain. Skin: Negative for color change, pallor, rash and wound. Allergic/Immunologic: Negative for environmental allergies, food allergies and immunocompromised state. Neurological: Positive for headaches. Negative for dizziness and facial asymmetry. Hematological: Positive for adenopathy. Does not bruise/bleed easily. Psychiatric/Behavioral: Negative for agitation and behavioral problems. Objective BP 105/71 Pulse 77 Temp 37.6 C (99.6 F) Resp 18 Wt 90.7 kg (199 lb 15.3 oz) LMP 06/28/2024 SpO2 98% BMI 32.27 kg/m Physical Exam Vitals and nursing note reviewed. Constitutional: General: She is not in acute distress. Appearance: Normal appearance. She is normal weight. She is not ill-appearing, toxic-appearing or diaphoretic. HENT: Head: Normocephalic and atraumatic. Right Ear: Ear canal and external ear normal. Left Ear: Ear canal and external ear normal. Nose: Congestion present. No rhinorrhea. Mouth/Throat: Mouth: Mucous membranes are moist. Pharynx: Posterior oropharyngeal erythema present. No oropharyngeal exudate. Eyes: General: Right eye: No discharge. Left eye: No discharge. Extraocular Movements: Extraocular movements intact. Conjunctiva/sclera: Conjunctivae normal. Pupils: Pupils are equal, round, and reactive to light. Cardiovascular: Rate and Rhythm: Normal rate and regular rhythm. Pulses: Normal pulses. Heart sounds: Normal heart sounds. No murmur heard. No friction rub. Pulmonary: Effort: Pulmonary effort is normal. No respiratory distress. Breath sounds: Normal breath sounds. No stridor. No wheezing, rhonchi or rales. Chest: Chest wall: No tenderness. Abdominal: General: Abdomen is flat. There is no distension. Palpations: Abdomen is soft. There is no mass. Tenderness: There is no abdominal tenderness. There is no right CVA tenderness, left CVA tenderness, guarding or rebound. Hernia: No hernia is present. Musculoskeletal: General: No swelling, tenderness, deformity or signs of injury. Normal range of motion. Cervical back: Normal range of motion and neck supple. No rigidity. Right lower leg: No edema. Left lower leg: No edema. Lymphadenopathy: Cervical: Cervical adenopathy present. Skin: General: Skin is warm and dry. Coloration: Skin is not jaundiced or pale. Findings: No bruising, erythema, lesion or rash. Neurological: General: No focal deficit present. Mental Status: She is alert and oriented to person, place, and time. Cranial Nerves: No cranial nerve deficit. Sensory: No sensory deficit. Motor: No weakness. Coordination: Coordination normal. Gait: Gait normal. Psychiatric: Mood and Affect: Mood normal. Behavior: Behavior normal. Thought Content: Thought content normal. Judgment: Judgment normal. Assessment and Plan ASSESSMENT/PLAN: 1. URI, acute - ICD9: 465.9, ICD10: J06.9 X 3 days - Discussed viral etiology and rationale for treatment. - Group A strep molecular testing negative - Symptomatic treatment with prn analgesia - Supportive care with fluids and rest - The patient may also use OTC cough and cold meds as needed and warm salt water gargles, throat lozenges and/or OTC throat spray as needed. - Follow up in 3-5 days if symptoms persist or sooner if worsening of symptoms - STREP A MOLECULAR (POC) - COVID & INFLUENZA A/B & RSV PCR, ROUTINE Keely Reddy APRN.FRICTION WELDING MACHINE OPERATOR documented [facility] NoteHNO ID: [id number] Author: KEELY REDDY APRN.FRICTION WELDING MACHINE OPERATOR Service: ? Author Type: Nurse Practitioner Type: Progress Notes Filed: 11/03/2024 11:56 Note Text: This note was created using NoteWriter. Subjective Joshua Choudhary is a 29 year old female. 29 year old female with PMH PCOS and DM presents for illness Acute onset 2 to 3 days +sore throat +body aches +runny nose + congestion +headache +chills +low grade fever +cough Denies N/V/D Denies CP Denies dyspnea +cannabis usage Denies tobacco usage Has used Theraflu with relief of symptoms The history is provided by the patient. No assistant speech language pathologist was used. URI She complains of cough. There is no chest tightness, difficulty breathing, frequent throat clearing, hemoptysis, hoarse voice, shortness of breath, sputum production or wheezing. This is a new problem. Episode onset: 2 to 3 days ago. The problem occurs constantly. The problem has been unchanged. The cough is non-productive. Associated symptoms include a fever, headaches, malaise/fatigue, myalgias, nasal congestion, postnasal drip, rhinorrhea, sneezing and a sore throat. Pertinent negatives include no appetite change, chest pain, dyspnea on exertion, ear congestion, ear pain, heartburn, orthopnea, PND, sweats, trouble swallowing or weight loss. Her symptoms are aggravated by nothing. Her symptoms are alleviated by nothing. She reports no improvement on treatment. There are no known risk factors for lung disease. There is no history of asthma, bronchiectasis, bronchitis, COPD, emphysema or pneumonia. PAST MEDICAL HISTORY Diagnosis Date Cholelithiases Depression Panic disorder PCOS (polycystic ovarian syndrome) Type 2 diabetes (HCC) PAST SURGICAL HISTORY Procedure Laterality Date COLONOSCOPY FLX DX W/COLLJ SPEC WHEN PFRMD 07/03/2018 Colonoscopy ESOPHAGOGASTRODUODENOSCOPY TRANSORAL DIAGNOSTIC 07/03/2018 EGD LAPAROSCOPY SURG CHOLECYSTECTOMY 10/04/2017 Cholecystectomy, lap Jimenez PAST SURGICAL HISTORY OF Right 2014 rght salpingectomy REMOVAL GALLBLADDER ALLERGIES Patient has no known allergies. MEDICATIONS venlafaxine (EFFEXOR) 75 mg tablet Take 75 mg by mouth once daily. FAMILY HISTORY Problem Relation Age of Onset Diabetes Maternal Grandfather Social History Tobacco Use Smoking status: Never Smokeless tobacco: Never Vaping Use Vaping status: Never Used Substance Use Topics Alcohol use: Not Currently Drug use: Yes Types: Marijuana Comment: daily Review of Systems Constitutional: Positive for fever and malaise/fatigue. Negative for appetite change and weight loss. HENT: Positive for congestion, postnasal drip, rhinorrhea, sneezing and sore throat. Negative for ear pain, hoarse voice and trouble swallowing. Eyes: Negative for pain, discharge, redness and itching. Respiratory: Positive for cough. Negative for apnea, hemoptysis, sputum production, shortness of breath and wheezing. Cardiovascular: Negative for chest pain, dyspnea on exertion and PND. Gastrointestinal: Negative for abdominal pain, diarrhea, heartburn, nausea and vomiting. Musculoskeletal: Positive for myalgias. Negative for arthralgias and back pain. Skin: Negative for color change, pallor, rash and wound. Allergic/Immunologic: Negative for environmental allergies, food allergies and immunocompromised state. Neurological: Positive for headaches. Negative for dizziness and facial asymmetry. Hematological: Positive for adenopathy. Does not bruise/bleed easily. Psychiatric/Behavioral: Negative for agitation and behavioral problems. Objective BP 105/71 Pulse 77 Temp 37.6 ?C (99.6 ?F) Resp 18 Wt 90.7 kg (199 lb 15.3 oz) LMP 06/28/2024 SpO2 98% BMI 32.27 kg/m? Physical Exam Vitals and nursing note reviewed. Constitutional: General: She is not in acute distress. Appearance: Normal appearance. She is normal weight. She is not ill-appearing, toxic-appearing or diaphoretic. HENT: Head: Normocephalic and atraumatic. Right Ear: Ear canal and external ear normal. Left Ear: Ear canal and external ear normal. Nose: Congestion present. No rhinorrhea. Mouth/Throat: Mouth: Mucous membranes are moist. Pharynx: Posterior oropharyngeal erythema present. No oropharyngeal exudate. Eyes: General: Right eye: No discharge. Left eye: No discharge. Extraocular Movements: Extraocular movements intact. Conjunctiva/sclera: Conjunctivae normal. Pupils: Pupils are equal, round, and reactive to light. Cardiovascular: Rate and Rhythm: Normal rate and regular rhythm. Pulses: Normal pulses. Heart sounds: Normal heart sounds. No murmur heard. No friction rub. Pulmonary: Effort: Pulmonary effort is normal. No respiratory distress. Breath sounds: Normal breath sounds. No stridor. No wheezing, rhonchi or rales. Chest: Chest wall: No tenderness. Abdominal: General: Abdomen is flat. There is no distension. Palpatio (more content not included)...[facility] Instructions* Patient Instructions* Staci Givens RD - 10/30/2024 8:21 AM EST Continuous previous recommendations AND Ensure protein at breakfast Try sliced chicken breast instead of wings, don't eat chicken skin Add in regular exercise, add 30 min 4 days per week documented in [facility] encounterThe [facility]25 NoteHNO ID: [id number] Author: STACI GIVENS RD Service: ? Author Type: Registered Dietitian Type: Progress Notes Filed: 10/30/2024 08:26 Note Text: [facility]: Virtual Consult - Re-assessment I have communicated my name and active licensure. The patient?s identity and physical location were verified at the time of this visit. Either the patient or their legal call center support representative has been informed of the risks and benefits of -- and alternatives to -- treatment through a remote evaluation and consents to proceed with the evaluation remotely. Nutrition Diagnosis: Behavioral-Environmental: Food and nutrition related knowledge deficit, related to, lack of prior exposure to information , as evidenced by change in existing diagnosis or condition RECOMMENDED MALNUTRITION DIAGNOSIS: NO MALNUTRITION IDENTIFIED NUTRITION CARE PLAN: Nutrition Intervention 10/30/2024: modify type and amount of food or beverage Continuous previous recommendations AND Ensure protein at breakfast Try sliced chicken breast instead of wings, don't eat chicken skin Add in regular exercise, add 30 min 4 days per week Nutrition Monitoring AND Evaluation: balanced diet and meal patterns Need for Follow up: 6-8 weeks PROGRESS: Interval History: following as relates to diabetes , PCOS. Diabetes well controlled, last HgA1c 5.5. Is now eating regular meals throughout the day, better choices, less fast foods and sweets. Focusing on whole grains and produce. Beverages appropriate. Has been more active now that is in school but no regular exercise. . Nutrition Intervention 09/11/24 Actions to implement interventions: More fresh fruits, and veg Packing at school Better Less beef Diet History: Breakfast - smoothie with greens, may have coconut yogurt; avocado toast Snack - occ may have slim jims, nut bar Lunch - WG bread with pnb and a seed blend and honey and fruit and veg; cheese and meats Snack - as above Dinner - chicken wings in air fryer or chicken nuggets; rice pockets with fish like sushi; tacos; veg Snack - less candy, less often, may have fruit Beverages - water, zero vitamin water, Alcohol - no Vitamins/Supplements - no change Activity: Activities of Daily Living: varies Additional Activity: Sedentary (Little or no exercise: <1x/week) More active, walking around campus yoga Anthropometrics: Height: Last Ht 10/30/24 : 167.6 cm (5' 6) Current weight: Last Wt 10/30/24 : 88.5 kg (195 lb) Body mass index is 31.47 kg/m?. Resting Metabolic Rate: 1617 Malnutrition Screening Significant unintentional weight loss? No Eating less than 75% of usual intake for more than 2 weeks? No Potential Signs of Inflammation: no identifiable sources Nutritional status: Education Materials Provided: None this visit READINESS TO LEARN Cognitive ability: Alert and oriented Motivation to learn: Interested Family support: Unable to assess - Family not present Instruction provided to: Patient Patient learns best by: Individual Instruction Factors affecting learning: None Physical limitations affecting learning: None Likelihood of Adherence: High Referred by: Ryder FERMIN Billing Type: Re-assess/15 min 2 units SIGNATURE: Staci Givens RD PATIENT NAME: Joshua Choudhary DATE: October 30, 2024 TIME: 8:00 [facility]01-29-2025 History of Present illness Narrative* Staci Givens RD - 10/30/2024 8:01 AM EST [facility] Nutrition Therapy: Virtual Consult - Re-assessment I have communicated my name and active licensure. The patient s identity and physical location wereverified at the time of this visit. Either the patient or their legal call center support representative has been informed of the risks and benefits of -- and alternatives to -- treatment through a remote evaluation andconsents to proceed with the evaluation remotely. Nutrition Diagnosis: Behavioral-Environmental: Food and nutrition related knowledge deficit, related to, lack of prior exposure to information , as evidenced by change in existing diagnosis or condition RECOMMENDED MALNUTRITION DIAGNOSIS: NO MALNUTRITION IDENTIFIED NUTRITION CARE PLAN: Nutrition Intervention 10/30/2024: modify type and amount of food or beverage Continuous previous recommendations AND Ensure protein at breakfast Try sliced chicken breast instead of wings, don't eat chicken skin Add in regular exercise, add 30 min 4 days per week Nutrition Monitoring & Evaluation: balanced diet and meal patterns Need for Follow up: 6-8 weeks PROGRESS: Interval History: following as relates to diabetes , PCOS. Diabetes well controlled, last HgA1c 5.5. Is now eating regular meals throughout the day, better choices, less fast foods and sweets. Focusing on whole grains and produce. Beverages appropriate. Has been more active now that is in school but no regular exercise. . Nutrition Intervention 09/11/24 Actions to implement interventions: More fresh fruits, and veg Packing at school Better Less beef Diet History: Breakfast - smoothie with greens, may have coconut yogurt; avocado toast Snack - occ may have slim jims, nut bar Lunch - WG bread with pnb and a seed blend and honey and fruit and veg; cheese and meats Snack - as above Dinner - chicken wings in air fryer or chicken nuggets; rice pockets with fish like sushi; tacos; veg Snack - less candy, less often, may have fruit Beverages - water, zero vitamin water, Alcohol - no Vitamins/Supplements - no change Activity: Activities of Daily Living: varies Additional Activity: Sedentary (Little or no exercise: <1x/week) More active, walking around campus yoga Anthropometrics: Height: Last Ht 10/30/24 : 167.6 cm (5' 6) Current weight: Last Wt 10/30/24 : 88.5 kg (195 lb) Body mass index is 31.47 kg/m . Resting Metabolic Rate: 1617 Malnutrition Screening Significant unintentional weight loss? No Eating less than 75% of usual intake for more than 2 weeks? No Potential Signs of Inflammation: no identifiable sources Nutritional status: Education Materials Provided: None this visit READINESS TO LEARN Cognitive ability: Alert and oriented Motivation to learn: Interested Family support: Unable to assess - Family not present Instruction provided to: Patient Patient learns best by: Individual Instruction Factors affecting learning: None Physical limitations affecting learning: None Likelihood of Adherence: High Referred by: Ryder FERMIN Billing Type: Re-assess/15 min 2 units SIGNATURE: Staci Givens RD PATIENT NAME: Joshua Choudhary DATE: October 30, 2024 TIME: 8:00 AM documented [facility]The [facility] NoteEducation (NUTRMM) JOSHUA CHOUDHARY ([id number]) 1995 F Date Time Provider Department 10/30/24 8:00 AM STACI GIVENS NUTRMM Reason for Visit: Reassessment [674] Patient Education [91] Primary Visit Diagnosis:Type 2 diabetes mellitus without complication, without long-term current use of insulin (HCC) [E11.9] Other Visit Diagnoses:Dietary counseling [Z71.3] PCOS (polycystic ovarian syndrome) [E28.2] Obesity, Class I, BMI 30-34.9 [E66.811] During your visit today, we recorded the following information about you: Weight Height 88.5 kg 1.676 m Allergies As of Date: 10/30/2024 (No Known Allergies) Date Reviewed: 10/30/2024 Reviewed by: Staci Givens RD - Fully Assessed Prescriptions as of 10/30/2024 - venlafaxine (EFFEXOR) 75 mg tablet Take 75 mg by mouth once daily. Encounter Status:Closed by STACI GIVENS on 10/30/24[facility] Telephone encounter Note* Telephone Encounter - Lesa Soler APRN.CNP - 09/19/2024 11:06 PM EST Please notify patient of lab results. Liver, kidney, pancreas, and thyroid function normal. Blood sugar was normal - 86. A1C normal at 5.5 Blood counts were within normal limits - WBC just slightly high Calcium slightly high Recheck both in 1 month Cholesterol levels were elevated. Total cholesterol was 208. Triglycerides 307. HDL 27. LDL 120. Instruct patient to increase fiber and decrease carbs in their diet. Instruct patient to exercise Irecommend walking for 30 minutes 5 days out of the week. No need for cholesterol medication at this time. Patient may choose to take fish oil [id number]. Recheck cholesterol in 6 months. 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 [facility]12-19-2024 Miscellaneous Notes* Telephone Encounter - Lesa Soler APRN.CNP - 09/19/2024 11:06 PM EST Please notify patient of lab results. Liver, kidney, pancreas, and thyroid function normal. Blood sugar was normal - 86. A1C normal at 5.5 Blood counts were within normal limits - WBC just slightly high Calcium slightly high Recheck both in 1 month Cholesterol levels were elevated. Total cholesterol was 208. Triglycerides 307. HDL 27. LDL 120. Instruct patient to increase fiber and decrease carbs in their diet. Instruct patient to exercise Irecommend walking for 30 minutes 5 days out of the week. No need for cholesterol medication at this time. Patient may choose to take fish oil [id number]. Recheck cholesterol in 6 months. 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 [facility] Instructions* Patient Instructions* Staci Givens RD - 09/11/2024 2:16 PM EST 1. Follow partial liquid protein diet; have a nutrition drink 160-250 calories and 20-30 grams protein for breakfast and supper and a fresh fruit 2. Have healthy balance dinner of 4 oz lean protein, 2 whole grain starches such as brown rice, whole grain pasta, beans/lesgumes; vegetables as desired and one fresh fruit; add one 100 yessenia snack, look for protein and fiber; use the plate method as a guide Add in a healthy snack around 1-2 p.m of healthy carb and lean protein - snacks should be 100-150 calories 2. Keep protein lean, 93% lean ground beef, chicken, turkey, fish. Bake broil roast and grill 4. Try a whey protein shake mixed with skim milk or 1% milk; can use frozen fruit to make a smoothie, if desired add in daphne/flax seeds, spinach or kale 5. Non starchy vegetables unlimited, veggie soups 6. Calorie free beverages only such as Crystal Light , flavored water, Ecptv3Y , Minute Maid light lemonade, Propel ) 5. Increase exercise to at least 30 min cardio 5 days per week or as tolerated; add in weight resistance exercise, preferably 2-3 days per week Consider a B complex and a vit D supplement [facility]The [facility] NoteHNO ID: [id number] Author: STACI GIVENS RD Service: ? Author Type: Registered Dietitian Type: Progress Notes Filed: 09/11/2024 14:22 Note Text: [facility] Nutrition Therapy: Virtual Consult - Initial Assessment I have communicated my name and active licensure. The patient?s identity and physical location were verified at the time of this visit. Either the patient or their legal call center support representative has been informed of the risks and benefits of -- and alternatives to -- treatment through a remote evaluation and consents to proceed with the evaluation remotely. Nutrition Diagnosis: Behavioral-Environmental: Food and nutrition related knowledge deficit, related to, lack of prior exposure to information , as evidenced by change in existing diagnosis or condition. RECOMMENDED MALNUTRITION DIAGNOSIS: NO MALNUTRITION IDENTIFIED NUTRITION CARE PLAN Nutrition Intervention 09/11/2024: modify type and amount of food or beverage 1. Follow partial liquid protein diet; have a nutrition drink 160-250 calories and 20-30 grams protein for breakfast and supper and a fresh fruit 2. Have healthy balance dinner of 4 oz lean protein, 2 whole grain starches such as brown rice, whole grain pasta, beans/lesgumes; vegetables as desired and one fresh fruit; add one 100 yessenia snack, look for protein and fiber; use the plate method as a guide Add in a healthy snack around 1-2 p.m of healthy carb and lean protein - snacks should be 100-150 calories 2. Keep protein lean, 93% lean ground beef, chicken, turkey, fish. Bake broil roast and grill 4. Try a whey protein shake mixed with skim milk or 1% milk; can use frozen fruit to make a smoothie, if desired add in daphne/flax seeds, spinach or kale 5. Non starchy vegetables unlimited, veggie soups 6. Calorie free beverages only such as Crystal Light?, flavored water, [id number]?, Minute Maid? light lemonade, Propel?) 5. Increase exercise to at least 30 min cardio 5 days per week or as tolerated; add in weight resistance exercise, preferably 2-3 days per week Consider a B complex and a vit D supplement Nutrition Monitoring AND Evaluation: balanced nutrition and healthy meal patterns Need for Follow up: - weeks Patient presents for initial MNT as relates to diabetes, has and for about 2 years ago, limited MNT as time of daignosis, had controlled with keto diet and Metformin for PCOS for a while but stopped when prescription , off now for about 9 months ago. Other rmedical issues PCOS. Limited appetite with current medication, tends to skip meals, take small portions. Usuallyi eats one main mael later in the day followed by snacking on candy/sweets through the evening. Beverages mostly appropriate. No regular exercise and tends to be sedentary during the day. 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 Resting Metabolic Rate: 1653 Malnutrition Screening Significant unintentional weight loss? No Eating less than 75% of usual intake for more than 2 weeks? No Potential Signs of Inflammation: no identifiable sources Education Materials Provided: Healthy Lunch/Dinner Plate and 2355-4621 Calorie Partial Liquid Protein Diet READINESS TO LEARN Cognitive ability: Alert and oriented Motivation to learn: Interested Family support: Unable to assess - Family not present Instruction provided to: Patient Patient learns best by: Individual Instruction Factors affecting learning: None Physical limitations affecting learning: None Referred by: Ryder FERMIN Billing Type: Initial Assess/15 min 2 units SIGNATURE: Staci Givens RD PATIENT NAME: Johsua Choudhary DATE: September 11, 2024 TIME: 1:46 [facility]12-11-2024 History of Present illness Narrative* Staci Givens RD - 09/11/2024 1:43 PM EST [facility] Nutrition Therapy: Virtual Consult - Initial Assessment I have communicated my name and active licensure. The patient s identity and physical location wereverified at the time of this visit. Either the patient or their legal call center support representative has been informed of the risks and benefits of -- and alternatives to -- treatment through a remote evaluation andconsents to proceed with the evaluation remotely. Nutrition Diagnosis: Behavioral-Environmental: Food and nutrition related knowledge deficit, related to, lack of prior exposure to information , as evidenced by change in existing diagnosis or condition. RECOMMENDED MALNUTRITION DIAGNOSIS: NO MALNUTRITION IDENTIFIED NUTRITION CARE PLAN Nutrition Intervention 09/11/2024: modify type and amount of food or beverage 1. Follow partial liquid protein diet; have a nutrition drink 160-250 calories and 20-30 grams protein for breakfast and supper and a fresh fruit 2. Have healthy balance dinner of 4 oz lean protein, 2 whole grain starches such as brown rice, whole grain pasta, beans/lesgumes; vegetables as desired and one fresh fruit; add one 100 yessenia snack, look for protein and fiber; use the plate method as a guide Add in a healthy snack around 1-2 p.m of healthy carb and lean protein - snacks should be 100-150 calories 2. Keep protein lean, 93% lean ground beef, chicken, turkey, fish. Bake broil roast and grill 4. Try a whey protein shake mixed with skim milk or 1% milk; can use frozen fruit to make a smoothie, if desired add in daphne/flax seeds, spinach or kale 5. Non starchy vegetables unlimited, veggie soups 6. Calorie free beverages only such as Crystal Light , flavored water, Hqzgh3M , Minute Maid light lemonade, Propel ) 5. Increase exercise to at least 30 min cardio 5 days per week or as tolerated; add in weight resistance exercise, preferably 2-3 days per week Consider a B complex and a vit D supplement Nutrition Monitoring & Evaluation: balanced nutrition and healthy meal patterns Need for Follow up: - weeks Patient presents for initial MNT as relates to diabetes, has and for about 2 years ago, limited MNTas time of daignosis, had controlled with keto diet and Metformin for PCOS for a while but stopped when prescription , off now for about 9 months ago. Other rmedical issues PCOS. Limited appetite with current medication, tends to skip meals, take small portions. Usuallyi eats one main mael later in the day followed by snacking on candy/sweets through the evening. Beverages mostly appropriate. No regular exercise and tends to be sedentary during the day. 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 Resting Metabolic Rate: 1653 Malnutrition Screening Significant unintentional weight loss? No Eating less than 75% of usual intake for more than 2 weeks? No Potential Signs of Inflammation: no identifiable sources Education Materials Provided: Healthy Lunch/Dinner Plate and 8350-0167 Calorie Partial Liquid Protein Diet READINESS TO LEARN Cognitive ability: Alert and oriented Motivation to learn: Interested Family support: Unable to assess - Family not present Instruction provided to: Patient Patient learns best by: Individual Instruction Factors affecting learning: None Physical limitations affecting learning: None Referred by: Trill MNT Billing Type: Initial Assess/15 min 2 units SIGNATURE: Staci Givens RD PATIENT NAME: Joshua Choudhary DATE: September 11, 2024 TIME: 1:46 PM [facility]The [facility]12-[facility]24 NoteHNO ID: [id number] Author: LESA SOLER APRN.PAOLA Service: ? Author Type: Nurse Practitioner Type: Progress Notes Filed: 09/22/2024 00:58 Note Text: Subjective Joshua Choudhary is a 29 year old female here today for establish care. I reviewed past medical, surgical, social, and family histories today and updated chart. Allergies, chronic medications, and supplements were also reviewed. HPI Moved back to [place] about 1 year ago Needs PCP Diagnosed with type 2 diabetes about 2-3 years ago Hx PCOS Took metformin for many years - stopped due to wasn't following up with doc Had some GI symptoms with metformin Irregular eating schedule so wasn't being consistent with taking it Got A1C from 9.6 to 6.3 with whole food keto diet Doesn't follow it strictly now but keeping up with it Has a glucometer at home She states she has felt highs and lows with sugars all through her childhood Insatiable hunger for sugar, craves candy Saw [facility] last week - Dr Monique Pap test completed Looking in to fertility treatment for 6 years - tried for good 2 years, still not using BC Right fallopian tube removed age 17 Depression - she is seeing counselor and psychiatrist, Dr Marybel Ortiz [facility] Counselor Joshua Zazueta at [facility], will be starting EDMR Hx childhood trauma CPSD responses Having official testing for ADHD Panic disorder Has been focusing on mental health this whole past year Hasn't been able to work this past year She was hospitalized - [facility] x 1 week Just started new medication 1 week ago - can't recall name of it No family history of thyroid cancer No hx pancreatitis Does not drink alcohol PAST MEDICAL HISTORY Diagnosis Date Cholelithiases PAST SURGICAL HISTORY Procedure Laterality Date COLONOSCOPY FLX DX W/COLLJ SPEC WHEN PFRMD 07/03/2018 Colonoscopy ESOPHAGOGASTRODUODENOSCOPY TRANSORAL DIAGNOSTIC 07/03/2018 EGD LAPAROSCOPY SURG CHOLECYSTECTOMY 10/04/2017 Cholecystectomy, lap Jimenez PAST SURGICAL HISTORY OF Right 2014 rght salpingectomy REMOVAL GALLBLADDER ALLERGIES Patient has no known allergies. MEDICATIONS dicyclomine (BENTYL) 10 mg capsule Take 1 capsule by mouth before meals and at bedtime. (Patient not taking: Reported on 09/03/2024) benzonatate (TESSALON PERLE) 100 mg capsule Take 1-2 capsules tid prn (Patient not taking: Reported on 09/03/2024) guaiFENesin (MUCINEX) 600 mg 12 hr tablet Take 2 tablets by mouth twice daily. (Patient not taking: Reported on 09/03/2024) CRYSELLE 0.3-30 mg-mcg per tablet (Patient not taking: Reported on 09/03/2024) B INFANTIS/B ANI/B CONSUELO/B BIFID (PROBIOTIC 4X ORAL) Take by mouth. (Patient not taking: Reported on 09/03/2024) VIT/IRON FUM/FOLIC AC ( 10/02 ORAL) Take by mouth. (Patient not taking: Reported on 09/03/2024) History reviewed. No pertinent family history. Social History Tobacco Use Smoking status: Never Smokeless tobacco: Never Vaping Use Vaping status: Never Used Substance Use Topics Alcohol use: Not Currently Drug use: Yes Types: Marijuana Comment: daily Review of Systems Constitutional: Positive for diaphoresis and fever. Negative for appetite change, chills, fatigue and unexpected weight change. Couple times over the past year - WBC really high at hospital and had fever Hot at night, sweats a lot at night HENT: Negative for congestion, ear pain, rhinorrhea and sore throat. Eyes: Negative for pain, discharge, itching and visual disturbance. Respiratory: Negative for cough, shortness of breath and wheezing. COPD in her family She does not use tobacco Cardiovascular: Negative for chest pain, palpitations and leg swelling. Gastrointestinal: Positive for diarrhea and nausea. Negative for abdominal pain, constipation and vomiting. Episodes would happen with extreme temperature changes - sudden nausea, red/sweating, hot, then pukes Had 2 severe episodes caused her to go to hospital Has had other more mild episodes Over the past 10 years - it would add up to years out of her life where it would happen every single morning Episodes worse with stress Had gallbladder removed but still having episodes Still felt severely sick/nausea for about 1-2 years after the gallbladder Had EGD in 2018 Stopped smoking cannabis for 3 years - still had symptoms during that time period Tried edibles but it doesn't work at all for her Chronic diarrhea Will see food in her stool Has always had Calibration bite - has to wait because she will get very nausea Genitourinary: Negative for difficulty urinating. Musculoskeletal: Negative for arthralgias. Skin: Negative for rash. Allergic/Immunologic: Negative for environmental allergies. Neurological: Negative for dizziness, tremors, weakness and headaches. Psychiatric/Behavioral: Positive for dysphoric mood. Negative for sleep disturbance. The patient is not nervous/anxious. Objective BP 108/62 Pu (more content not included)...[facility] 09-03-2024 History of Present illness Narrative* Lesa Soler, TRINI.FRICTION WELDING MACHINE OPERATOR - 09/03/2024 1:41 PM EST Subjective Joshua Choudhary is a 29 year old female here today for establish care. I reviewed past medical, surgical, social, and family histories today and updated chart. Allergies, chronic medications, and supplements were also reviewed. HPI Moved back to [place] about 1 year ago Needs PCP Diagnosed with type 2 diabetes about 2-3 years ago Hx PCOS Took metformin for many years - stopped due to wasn't following up with doc Had some GI symptoms with metformin Irregular eating schedule so wasn't being consistent with taking it Got A1C from 9.6 to 6.3 with whole food keto diet Doesn't follow it strictly now but keeping up with it Has a glucometer at home She states she has felt highs and lows with sugars all through her childhood Insatiable hunger for sugar, craves candy Saw [facility] [facility] last week - Dr Monique Pap test completed Looking in to fertility treatment for 6 years - tried for good 2 years, still not using BC Right fallopian tube removed age 17 Depression - she is seeing counselor and psychiatrist, Dr Marybel Ortiz [facility] Counselor Joshua Zazueta at [facility], will be starting EDMR Hx childhood trauma CPSD responses Having official testing for ADHD Panic disorder Has been focusing on mental health this whole past year Hasn't been able to work this past year She was hospitalized - [facility] x 1 week Just started new medication 1 week ago - can't recall name of it No family history of thyroid cancer No hx pancreatitis Does not drink alcohol PAST MEDICAL HISTORY Diagnosis Date Cholelithiases PAST SURGICAL HISTORY Procedure Laterality Date COLONOSCOPY FLX DX W/COLLJ SPEC WHEN PFRMD 07/03/2018 Colonoscopy ESOPHAGOGASTRODUODENOSCOPY TRANSORAL DIAGNOSTIC 07/03/2018 EGD LAPAROSCOPY SURG CHOLECYSTECTOMY 10/04/2017 Cholecystectomy, lap Jimenez PAST SURGICAL HISTORY OF Right 2014 rght salpingectomy REMOVAL GALLBLADDER ALLERGIES Patient has no known allergies. MEDICATIONS dicyclomine (BENTYL) 10 mg capsule Take 1 capsule by mouth before meals and at bedtime. (Patient not taking: Reported on 09/03/2024) benzonatate (TESSALON PERLE) 100 mg capsule Take 1-2 capsules tid prn (Patient not taking: Reportedon 09/03/2024) guaiFENesin (MUCINEX) 600 mg 12 hr tablet Take 2 tablets by mouth twice daily. (Patient not taking:Reported on 09/03/2024) CRYSELLE 0.3-30 mg-mcg per tablet (Patient not taking: Reported on 09/03/2024) B INFANTIS/B ANI/B CONSUELO/B BIFID (PROBIOTIC 4X ORAL) Take by mouth. (Patient not taking: Reported on 09/03/2024) VIT/IRON FUM/FOLIC AC ( 10/02 ORAL) Take by mouth. (Patient not taking: Reported on 09/03/2024) History reviewed. No pertinent family history. Social History Tobacco Use Smoking status: Never Smokeless tobacco: Never Vaping Use Vaping status: Never Used Substance Use Topics Alcohol use: Not Currently Drug use: Yes Types: Marijuana Comment: daily Review of Systems Constitutional: Positive for diaphoresis and fever. Negative for appetite change, chills, fatigue and unexpected weight change. Couple times over the past year - WBC really high at hospital and had fever Hot at night, sweats a lot at night HENT: Negative for congestion, ear pain, rhinorrhea and sore throat. Eyes: Negative for pain, discharge, itching and visual disturbance. Respiratory: Negative for cough, shortness of breath and wheezing. COPD in her family She does not use tobacco Cardiovascular: Negative for chest pain, palpitations and leg swelling. Gastrointestinal: Positive for diarrhea and nausea. Negative for abdominal pain, constipation and vomiting. Episodes would happen with extreme temperature changes - sudden nausea, red/sweating, hot, then pukes Had 2 severe episodes caused her to go to hospital Has had other more mild episodes Over the past 10 years - it would add up to years out of her life where it would happen every single morning Episodes worse with stress Had gallbladder removed but still having episodes Still felt severely sick/nausea for about 1-2 years after the gallbladder Had EGD in 2018 Stopped smoking cannabis for 3 years - still had symptoms during that time period Tried edibles but it doesn't work at all for her Chronic diarrhea Will see food in her stool Has always had Calibration bite - has to wait because she will get very nausea Genitourinary: Negative for difficulty urinating. Musculoskeletal: Negative for arthralgias. Skin: Negative for rash. Allergic/Immunologic: Negative for environmental allergies. Neurological: Negative for dizziness, tremors, weakness and headaches. Psychiatric/Behavioral: Positive for dysphoric mood. Negative for sleep disturbance. The patient isnot nervous/anxious. Objective BP 108/62 Pulse 78 Temp 98.1 Ht 5' 6 (1.68m) Wt 203 lb (92.1kg) SpO2 97% LMP 06/28/2024 BMI 32.78 kg/(m^2). Physical Exam Constitutional: General: She is not in acute distress. Appearance: Normal appearance. HENT: Head: Normocephalic and atraumatic. Mouth/Throat: Lips: [place]. Eyes: General: Lids are normal. Extraocular Movements: Extraocular movements intact. Conjunctiva/sclera: Conjunctivae normal. Pupils: Pupils are equal. Cardiovascular: Rate and Rhythm: Normal rate and regular rhythm. Heart sounds: Normal heart sounds. No murmur heard. Pulmonary: Effort: Pulmonary effort is normal. No respiratory distress. Breath sounds: Normal breath sounds. Musculoskeletal: Cervical back: Normal range of motion. Right lower leg: No edema. Left lower leg: No edema. Skin: General: Skin is warm and dry. Findings: No rash. Neurological: General: No focal deficit present. Mental Status: She is alert and oriented to person, place, and time. Cranial Nerves: No cranial nerve deficit. Motor: Motor function is intact. Coordination: Coordination normal. Gait: Gait is intact. Psychiatric: Attention and Perception: Attention and perception normal. Mood and Affect: Mood and affect normal. Behavior: Behavior normal. Behavior is cooperative. ASSESSMENT/PLAN: 1. Type 2 diabetes mellitus without complication, without long-term current use of insulin (HCC) - ICD9: 250.00, ICD10: E11.9 (primary diagnosis) - Control undetermined, due for labs - Counseled on healthy diet and regular exercise - Follow up in 6-8 weeks sooner should any other issues arise. - LIPID PANEL BASIC - COMPLETE BLOOD COUNT - COMPREHENSIVE METABOLIC PANEL - HEMOGLOBIN A1C - THYROID STIMULATING HORMONE - CONSULT TO NUTRITION THERAPY 2. Chronic diarrhea - ICD9: 787.91, ICD10: K52.9 - CONSULT TO GASTROENTEROLOGY 3. Early satiety - ICD9: 780.94, ICD10: R68.81 - LIPASE 4. Chronic nausea - ICD9: 787.02, ICD10: R11.0 - LIPASE Lesa Soler APRN.FRICTION WELDING MACHINE OPERATOR [facility] NoteHNO ID: [id number] Author: MARIO MONIQUE MD Service: ? Author Type: Physician Type: Progress Notes Filed: 08/28/2024 10:27 Note Text: PCOS Joshua is a 29 year old No obstetric history on file. who presents for an annual gynecologic exam without complaints. Patient has history of PCOS. Has been trying to conceive for years without success. Has a history of secondary amenorrhea. Patient is status post salpingectomy. Etiology unclear. OB History No obstetric history on file. PAST MEDICAL HISTORY Diagnosis Date Cholelithiases PAST SURGICAL HISTORY Procedure Laterality Date COLONOSCOPY FLX DX W/COLLJ SPEC WHEN PFRMD 07/03/2018 Colonoscopy ESOPHAGOGASTRODUODENOSCOPY TRANSORAL DIAGNOSTIC 07/03/2018 EGD LAPAROSCOPY SURG CHOLECYSTECTOMY 10/04/2017 Cholecystectomy, lap Jimenez PAST SURGICAL HISTORY OF Right 2014 rght salpingectomy History reviewed. No pertinent family history.SOCIAL HISTORY Social History Tobacco Use Smoking status: Never Smokeless tobacco: Never Vaping Use Vaping status: Never Used Substance Use Topics Alcohol use: Not Currently Drug use: Yes Types: Marijuana Comment: daily REVIEW OF SYSTEMS Abdomen: No bloating, early satiety, indigestion, or increased flatulence. No abdominal pain, nausea, vomiting, diarrhea, or constipation. Bladder: No dysuria, gross hematuria, urinary frequency, urinary urgency, or incontinence. Breast: No breast lumps, nipple d/c, overlying skin changes, redness or skin retraction. Allergies and current medication updated:Yes Field Installer present EXAM: BP 108/71 Pulse 72 Ht 5' 6 (1.68m) Wt 208 lb (94.3kg) LMP 06/28/2024 BMI 33.59 kg/(m2). GENERAL: In no apparent distress HEENT: Normocephalic, BREAST: soft, non-tender, symmetric, no dominant mass, normal nipple-areolar complex, no lymphadenopathy, and no nipple discharge CHEST: Normal inspiratory effort ABDOMEN: soft, non-tender, and no masses PELVIC: external genitalia normal, normal Bartholin's glands, urethra, [place]'s glands, no vulvar lesions, no cervical lesions, good vaginal support, normal appearing perineal body and perianal region BIMANUAL: uterus normal size, shape and consistency, no adnexal masses, and non-tender NEURO: alert and oriented x3,exam grossly non-focal PSYCH: Normal mood and judgment ASSESSMENT/PLAN Normal gynecological exam Follow up yearly PCOS. Anovulatory cycles. Rule out tubal factor male factor. Consult placed to RICHELLE Monique MD The sensitive examination was discussed with the Patient or Patient's Authorized Contact Center Consultant. As applicable, any other physician, advance practice provider, medical student, or other health professional student that will be observing or involved in the sensitive examination for educational or training purposes was discussed with the Patient or Authorized Contact Center Consultant. The Patient or Authorized Contact Center Consultant has agreed to proceed with the sensitive examination. (Sensitive examination includes inspection and/or palpation of the breasts, pelvis, prostate and anorectal regions)[facility] History of Present illness Narrative* Mario Monique MD - 08/28/2024 10:03 AM EST PCOS Joshua is a 29 year old No obstetric history on file. who presents for an annual gynecologic exam without complaints. Patient has history of PCOS. Has been trying to conceive for years without success. Has a history of secondary amenorrhea. Patient is status post salpingectomy. Etiology unclear. OB History No obstetric history on file. PAST MEDICAL HISTORY Diagnosis Date Cholelithiases PAST SURGICAL HISTORY Procedure Laterality Date COLONOSCOPY FLX DX W/COLLJ SPEC WHEN PFRMD 07/03/2018 Colonoscopy ESOPHAGOGASTRODUODENOSCOPY TRANSORAL DIAGNOSTIC 07/03/2018 EGD LAPAROSCOPY SURG CHOLECYSTECTOMY 10/04/2017 Cholecystectomy, lap Jimenez PAST SURGICAL HISTORY OF Right 2014 rght salpingectomy History reviewed. No pertinent family history.SOCIAL HISTORY Social History Tobacco Use Smoking status: Never Smokeless tobacco: Never Vaping Use Vaping status: Never Used Substance Use Topics Alcohol use: Not Currently Drug use: Yes Types: Marijuana Comment: daily REVIEW OF SYSTEMS Abdomen: No bloating, early satiety, indigestion, or increased flatulence. No abdominal pain, nausea, vomiting, diarrhea, or constipation. Bladder: No dysuria, gross hematuria, urinary frequency, urinary urgency, or incontinence. Breast: No breast lumps, nipple d/c, overlying skin changes, redness or skin retraction. Allergies and current medication updated:Yes Field Installer present EXAM: BP 108/71 Pulse 72 Ht 5' 6 (1.68m) Wt 208 lb (94.3kg) LMP 06/28/2024 BMI 33.59 kg/(m^2). GENERAL: In no apparent distress HEENT: Normocephalic, BREAST: soft, non-tender, symmetric, no dominant mass, normal nipple-areolar complex, no lymphadenopathy, and no nipple discharge CHEST: Normal inspiratory effort ABDOMEN: soft, non-tender, and no masses PELVIC: external genitalia normal, normal Bartholin's glands, urethra, Belville's glands, no vulvar lesions, no cervical lesions, good vaginal support, normal appearing perineal body and perianal region BIMANUAL: uterus normal size, shape and consistency, no adnexal masses, and non-tender NEURO: alert and oriented x3,exam grossly non-focal PSYCH: Normal mood and judgment ASSESSMENT/PLAN Normal gynecological exam Follow up yearly PCOS. Anovulatory cycles. Rule out tubal factor male factor. Consult placed to RICHELLE Monique MD The sensitive examination was discussed with the Patient or Patient's Authorized Contact Center Consultant. Asapplicable, any other physician, advance practice provider, medical student, or other health professional student that will be observing or involved in the sensitive examination for educational or training purposes was discussed with the Patient or Authorized Contact Center Consultant. The Patient or Authorized Contact Center Consultant has agreed to proceed with the sensitive examination. (Sensitive examination includes inspection and/or palpation of the breasts, pelvis, prostate and anorectal regions) [facility] Dis[facility] summary Author Andres Loyola [facility] March 30, 2023 10:03am Note Date/Time March 28, 2023 11:0 1am [facility] Medical Records Department [address] [place] [address] Emergency Department Summary 03/28/23 MR#: [id number] Acct: [id number] Name: JOSHUA CHOUDHARY Rep #:[id number] : 1995 28 From: Ry Hernandez PCP: Care Physician,No Primary Status :REG ER Location: ED ADDENDUM by Dr. Andres Loyola DO on 03/30/23 at 1003 Patient accepted to [facility] under service Dr. Price. Awaiting transfer. Noissues on morning shift. [facility] from a crying baby in the department. 03/30/23 1003<Electronically signed by Andres Pedroza> Cosigner Signature (if applicable): cc: No Primary Care Physician ~* Signed ADDENDUM by Dr. Corky Bowman MD on 03/30/23 at 0601 28-year-old female awaiting psychiatric placement. She has been in the emergency department now 44+ hours. She is resting comfortably all evening. There was a baby crying which made our patient nervous and she was given a dose of p.o. Ativan. On repeat exam she is doing well at 5:56 AM. Sitting upright in bed resting comfortably. 03/30/23 0601<Electronically signed by Corky Bowman MD> Cosigner Signature (if applicable): cc: No Primary Care Physician ~* Signed ADDENDUM by Dr. Christos Esparza MD on 03/29/23 at 2307 Patient care was transferred to ms at the beginning of my shift, 1400. Patient is awaiting bed assignment at [facility]. There was concern because of leukocytosis. The care management coordinator at [facility] demanded a CAT scan of the abdomen. CAT scan of the abdomen was performed and was negative. Patient's history and physicals consistent with a viral illness. Patient received multiple doses of Zofran for recurrent nausea. She has had no recurrent vomiting. Patient was moved from room 4 to room 5 for comfort. Patient required no intervention regarding her psychiatric illness during my shift. [facility] 03/29/23 2307<Electronically signed by Christos Esparza MD> Cosigner Signature (if applicable): cc: No Primary Care Physician ~* Signed ADDENDUM by Dr. Andres Loyola DO on 03/29/23 at 1527 He received callback from psychiatric facility who requested a CT scan abdomen pelvis after discussing with her care management coordinator due to her leukocytosis. Also requested urinary analysis again. She denies any urine symptoms she denies any cough. She has soft abdomen. With her concerns CT scan was obtained, shows no acute process. Urine negative for infection. She is clinically stable and medically cleared. Will send results to psychiatric facility for reevaluation. 03/29/23 1527<Electronically signed by Andres Pedroza> Cosigner Signature (if applicable): cc: No Primary Care Physician ~* Signed ADDENDUM by Dr. Andres Loyola DO on 03/29/23 at 1105 Patient signed out to me, she had increasing anxiety was given 1 mg p.o. Ativan and Zofran. She required reported 2 mg IM Ativan yesterday due to pacing around. She is more calm per nursing. She has been medically cleared. [place] slip was filled out by myself as requested by evaluating facility. Awaiting disposition. 03/29/23 1105<Electronically signed by Andres Pedroza> Cosigner Signature (if applicable): cc: No Primary Care Physician ~* Signed ADDENDUM by Dr. Ry James DO on 03/28/23 at 1640 EKG was ordered to assess for QT prolongation. On my independent interpretation, it shows a normal sinus rhythm with a rate of 63. ND interval was 162 ms. QRS interval was 90 ms. QTc interval was normal at 425 ms. [place] was normal. There are no acute ST or T wave changes noted. 03/28/23 1640<Electronically signed by Ry James DO> Cosigner Signature (if applicable): cc: No Primary Care Physician ~* Signed HPI HPI - Psych History of Present Illness Chief Complaint: Suicidal Informant: patient and spouse/S.O. Onset/Context/Timing Onset: Today Context: Sudden Onset Timing: Continuous Worsened by: - (Anxiety) Relieved by: Nothing Associated Symptoms Associated Symptoms - Psych: Positive for Depressed, Suicidal Thoughts and Increased activity; Negative for Paranoia, Visual Hallucinations or Auditory Hallucinations Specific plan (suicidal thought): Cutting her wrists Narrative Narrative: Patient presents with anxiety and suicidal ideations that began today. Patient states she woke up feeling very anxious today. Patient states that it has gotten progressively worse. Patient states it is to the point where she has thought of cutting her wrists. The patient denies any visual or auditory hallucinations. Patient states nothing makes her symptoms better nothing makes them worse. Patient denies any recent trauma or illness. Patient does admit tosome subjective chills. Patient admits to some nausea and vomiting due to the anxiety. [facility] Medical History PCOS (polycystic ovarian syndrome) Home Medications metformin 1,000 mg tablet 1,000 mg PO BID 03/28/23 [History Last Taken Unknown] Allergy/AdvReac Type Severity Reaction Status Date / Time No Known Allergies Allergy Verified 09/26/19 12:27 Family History (Updated 06/26/19 @ 14:12 by Angelic Kowalski) Mother Cancer skin Surgical History FH: cholecystectomy right salpingectomy Social History number of children: 0 current occupational status: employed current occupation: [employer] Smoking Status: Never smoker Smokeless tobacco user: chewing tobacco alcohol intake: current alcohol intake frequency: holidays/special occasions only substance use type: marijuana seatbelt use: always do you feel safe at home: Yes additional social history: [employer] ROS ROS ED Constitutional Constitutional ED: Reports chills and subjective; Denies fever(s) Eyes Eyes: Denies blurry vision or change in vision ENT ENT ED: Denies rhinorrhea or sore throat Cardiovascular Cardiovascular: Denies chest pain or palpitations Respiratory/Chest Respiratory/Chest: Denies cough or dyspnea Gastrointestinal Gastrointestinal: Reports nausea and vomiting Genitourinary Genitourinary ED: Denies dysuria or hematuria Musculoskeletal Musculoskeletal: Denies back pain or neck pain Integumentary Denies abscess or rash Neurologic Neurologic: Denies headache(s) or weakness Psychiatric Psychiatric: Reports anxiety, suicidal ideation and suicidal thoughts Allergic/Immunologic Allergic/Immunologic ED: Denies mouth swelling or urticaria EXAM Physical Exam Const Vital Signs: 03/28/23 09:05 Temperature 97.9 F Temperature Source Temporal Pulse Rate 73 Respiratory Rate 26 H Blood Pressure 135/74 H Blood Pressure Mean 94 Pulse Ox 99 Oxygen Delivery Method Room Air Positive well nourished, well developed and obese General Appearance ED: well developed and NAD Nutritional Appearance: obese HEENT Reports moist mucous membranes Neck supple and no JVD Resp normal respiratory effort and clear to auscultation bilaterally Cardio regular rate, regular rhythm and no murmurs GI normal to inspection, nondistended, normoactive bowel sounds and non-tender Palpation: soft Extremity normal to inspection General Extremety ED: Negative for edema or tenderness General Extremity: Negative for edema Neuro oriented x3, CN's II-XII intact bilaterally and no sensory deficits noted Sensorium / Orientation: alert Motor Exam: strength 5/5 throughout Psych mental status grossly normal Appearance: grossly normal Activity / Motor Behavior: appropriate eye contact and restless Speech: normal speech Mood & Affect: anxious Thought Process: normal thought process Thought Content: normal thought content Memory / Cognition: memory grossly intact Skin no rashes or lesions noted MDM MDM MDM Narrative Medical decision making narrative: Basic medical labs will be obtained for medical clearance. CBC will be obtainedto assess for leukocytosis and anemia. Basic metabolic profile will be obtainedto assess for electrolyte abnormality and renal function. Serum hCG will be obtained to assess for . Urinalysis will be obtained to assess for urinary tract infection and hematuria. Urine tox screen will be obtained to assess for substance abuse. Serum alcohol level will be obtained to assess for alcohol intoxication. Lab Data Attestation: I reviewed the patient's lab results. Lab results narrative: CBC shows a slight leukocytosis of 13.6. Basic metabolic profile was essentially within normal limits. Serum alcohol level was less than 3. Serum hCG was negative. Urinalysis was reviewed. There is no evidence of hematuria or urinary tract infection. Urine tox screen was reviewed and was positive for opiates and cannabinoids. Labs: Laboratory Results - last 24 hr 03/28/23 03/28/23 03/28/23 10:00 10:00 10:00 WBC 13.6 H RBC 5.34 Hgb 15.2 H Hct 45.1 MCV 84.5 MCH 28.5 MCHC 33.7 RDW Std Deviation 40.6 RDW Coeff of Jennifer 13.3 Plt Count 290 MPV 11.6 Immature Gran % (Auto) 0.900 Neut % (Auto) 70.3 H Lymph % (Auto) 22.0 [place] % (Auto) 4.3 Eos % (Auto) 1.8 Baso % (Auto) 0.7 Absolute Neuts (auto) 9.6 H Absolute Lymphs (auto) 2.99 Nucleated RBC % 0 Sodium 138 Potassium 3.4 L Chloride 106 Carbon Dioxide 20.0 L Anion Gap 12 BUN 11 Creatinine 1.08 H Estim Creat Clear Calc 71.30 Est GFR (MDRD) Af Amer 77 Est GFR (MDRD) Non-Af 63 BUN/Creatinine Ratio 10.2 Glucose 160 H Calcium 11.1 H Serum , Qual Urine Color Urine Clarity Urine pH Ur Specific [place] Urine Protein Urine Glucose (UA) Urine Ketones Urine Occult Blood Urine Nitrite Urine Bilirubin Urine Urobilinogen Ur Leukocyte Esterase Urine RBC Urine WBC Ur Squamous Epith Cells Urine Bacteria Urine Mucus Urine Opiates Screen Urine Methadone Screen Ur Barbiturates Screen Ur Phencyclidine Scrn Ur Amphetamines Screen MDMA (Ecstasy) Screen U Benzodiazepines Scrn Urine Cocaine Screen U Cannabinoids Screen Ur Drug Screen Comment Ethyl Alcohol < 3.0 03/28/23 03/28/23 03/28/23 10:00 14:15 14:15 WBC RBC Hgb Hct MCV MCH MCHC RDW Std Deviation RDW Coeff of Jennifer Plt Count MPV Immature Gran % (Auto) Neut % (Auto) Lymph % (Auto) [place] % (Auto) Eos % (Auto) Baso % (Auto) Absolute Neuts (auto) Absolute Lymphs (auto) Nucleated RBC % Sodium Potassium Chloride Carbon Dioxide Anion Gap BUN Creatinine Estim Creat Clear Calc Est GFR (MDRD) Af Amer Est GFR (MDRD) Non-Af BUN/Creatinine Ratio Glucose Calcium Serum , Qual NEGATIVE Urine Color Straw Urine Clarity Clear Urine pH 8.0 Ur Specific [place] 1.015 Urine Protein 30 H Urine Glucose (UA) Normal Urine Ketones 150 A* Urine Occult Blood Negative Urine Nitrite Negative Urine Bilirubin Negative Urine Urobilinogen Normal Ur Leukocyte Esterase Negative Urine RBC 0 SEEN Urine WBC 0 SEEN Ur Squamous Epith Cells 0 SEEN Urine Bacteria 0 SEEN Urine Mucus 0 SEEN Urine Opiates Screen POSITIVE H Urine Methadone Screen NEGATIVE Ur Barbiturates Screen NEGATIVE Ur Phencyclidine Scrn NEGATIVE Ur Amphetamines Screen NEGATIVE MDMA (Ecstasy) Screen NEGATIVE U Benzodiazepines Scrn NEGATIVE Urine Cocaine Screen NEGATIVE U Cannabinoids Screen POSITIVE H Ur Drug Screen Comment Ethyl Alcohol Management Discussion w/another healthcare provider: dock worker/Case management Treatment and Re-Evaluation Narrative: Patient was given a dose of Ativan initially. Patient was having more abdominalpain when crisis came to evaluate the patient. Patient was given a dose of morphine for this. Patient was feeling better after this. Crisis was able to evaluate the patient and felt patient would benefit from inpatient treatment forher suicidal ideations. Crisis will attempt to find placement. However, the patient is uninsured and will likely need to be transferred to [facility]. Care of the patient will be turned over to the oncoming physician pending psychiatric placement. Discharge Plan Triage Chief Complaint: Suicidal Other Complaint: Anxiety ED Provider: Ry James Dx/Rx/DC Orders Clinical Impression: Suicidal ideations, Acute anxiety Prescriptions: No Action metformin 1,000 mg Tablet 1,000 mg PO BID Primary Care Provider: Care Physician,No Primary Referrals: Care Physician,No Primary [Primary Care Provider] - Disposition Disposition: Psychiatric Hospital or Unit What to do if you have Problems For any increased pain, shortness of breath, bleeding, nausea or vomiting, chestpain, or any unexpected problems, contact your Primary Care Provider. Call [facility] ([phone]) or report to the closest Emergency Room. Call 911 if necessary. 03/28/23 5660 <Electronically signed by Ry James DO> Cosigner Signature (if applicable): CC: No Primary Care Physician ~ Signed [facility] Work Phone: Evaluation noteNo assessment information available [facility] Work Phone: Evaluation note* Diagnosis Encounter for gynecological examination (general) (routine) without abnormal findings- Primary Screening for malignant neoplasm of cervix Screening for malignant neoplasm of the cervix PCOS (polycystic ovarian syndrome) Polycystic ovaries Primary female infertility Female infertility of unspecified origin [facility] Diagnosis Dietary counseling- Primary Dietary surveillance and counseling Type 2 diabetes mellitus without complication, without long-term current use of insulin (HCC) PCOS (polycystic ovarian syndrome) Polycystic ovaries [facility]* Diagnosis Type 2 diabetes mellitus without complication, without long-term current use of insulin (HCC)- Primary Chronic diarrhea Diarrhea Early satiety Chronic nausea Nausea alone documented in this encounter [facility] note* Diagnosis Type 2 diabetes mellitus without complication, without long-term current use of insulin (HCC)- Primary Dietary counseling Dietary surveillance and counseling PCOS (polycystic ovarian syndrome) Polycystic ovaries Obesity, Class I, BMI 30-34.9 Obesity, unspecified documented in this encounter [facility] note* Diagnosis URI, acute- Primary Acute upper respiratory infections of unspecified site documented in this encounter [facility] note* Diagnosis Procreative management- Primary Unspecified procreative management PCOS (polycystic ovarian syndrome) Polycystic ovaries Primary female infertility Female infertility of unspecified origin Encounter for fertility testing Fertility testing Screening examination for STD (sexually transmitted disease) Screening examination for venereal disease Screen for STD (sexually transmitted disease) Screening examination for venereal disease Screening for STD (sexually transmitted disease) Screening examination for venereal disease Irregular bleeding Irregular menstrual cycle H/O unilateral salpingectomy Personal history of surgery to other organs documented in this encounter [facility] note* Diagnosis Type 2 diabetes mellitus without complication, without long-term current use of insulin ([facility])- Primary Dyslipidemia Other and unspecified hyperlipidemia Hirsutism [facility] Discharge instructions Additional Instructions Follow-up with your psychiatrist as well. Return to the emergency department with new or worsening symptoms.[facility] Work Phone: Reason for referral (narrative)No reason for referral information availableWMercy Health [facility] Work Phone: Summary Purpose Family History No Family History Records Found Relationship Condition Age at Onset Recorded Date/T tegan mother Malignant neoplasm Unknown Advance Directives No Advanced Directives Records Found Advance Directive Response Recorded Date/ Time Advance Directives No March 20 14 11:23am Living Will No March 28, 2023 9:13am Power of Director [employer] No March 28 9:13am Advance Directive Response Recorded Date/ Time Do you have a Healthcare Power of Director [employer]? No February 06, 2025 9:45am Advance Directives No March 20 11:23am Chief Complaint and Reason for Visit Chief Complaint PANIC ATTACK Chief Complaint Admit Date panic attack May 8th, 2025 9:37am Reason for Referral Specialty Diagnoses / Procedures Referred By Contac t Referred To Contact Diagnoses PCOS (polycystic ovarian syndrome) Primary female infertility Procedures CONSULT TO INFERTILITY CLINIC OFFICE/OUTPATIENT [facility] [address] [place] [address] [place] [address] Referral ID Status Reason Start Date Expiration Date Visits Requested Visits Authorized [id number] Authorized PCP Requested Referral Auto-Generate d Referral 08/28/2025 1 1 Specialty Diagnoses / Procedures Referred By Contact Referred To Contact Gastroenterology / [facility] DEPARTMENT Diagnoses Chronic diarrhea Procedures CONSULT TO GASTROENTEROLOGY OFFICE/OUTPATIENT [facility] 60 MINUTES Lesa Soler, ROADMASTER.FRICTION WELDING MACHINE OPERATOR [address] [place] [address] [facility] GASTROENTEROLOGY [address] [place] [address] Referral ID Status Reason Start Date Expiration Date Visits Requested Visits Authorized [id number] Authorized PCP Requested Referral 09/03/2024 09/03/2025 1 1 Specialty Diagnoses / Procedures Referred By Contac t Referred To Contact Nutrition / [facility] [place] [facility] Diagnoses Type 2 diabetes mellitus without complication, without long-term current use of insulin (HCC) Procedures CONSULT TO NUTRITION THERAPY MEDICAL NUTRITION ASSMT&IVNTJ INDIV EACH 15 CO Lesa Soler, ROADMASTER.FRICTION WELDING MACHINE OPERATOR [address] [place] [address] [facility] [place] [address] [place] [address] Referral ID Status Reason Start Date Expiration Date Visits Requested Visits Authorized [id number] Authorized PCP Requested Referral 09/03/2024 09/03/2025 1 4 Additional Source Comments INFORMATION SOURCE (unrecogn ized section and content) DATE CREATED AUTHOR 03/27/2018 [facility] DATE CREATED AUTHOR AUTHOR'S ORGANIZ ATION 11/19/2024 [facility] DATE CREATED AUTHOR AUTHOR'S ORGANIZ ATION 02/12/2025 [facility] DATE CREATED AUTHOR AUTHOR'S ORGANIZ ATION 02/15/2025 [facility] DATE CREATED AUTHOR AUTHOR'S ORGANIZ ATION 02/15/2025 [facility] Care Teams (unrecognized sec tion and content) Team Status: Active Member Role Status Dates Dr. Ry Adler MD Family Provider Active No Primary Care Physician Primary Care Provider Active Team Status: Inactive Member Role Status Dates Dr. Ry James , DO Emergency Provider Active No Primary Care Physician Primary Care Provider Active Cabinet Installer Relationship Specialty Start Date End Date Ry Adler MD [address] [place] [address], [place] [address] PCP - General Family Medicine 07/03/18 Cabinet Installer Relationship Specialty Start Date End Date Lesa Soler ROADMASTER.FRICTION WELDING MACHINE OPERATOR [address] [place] [address] PCP - General Family Medicine 09/03/24 Cabinet Installer Relationship Specialty Start Date End Date Lesa Soler, ROADMASTER.FRICTION WELDING MACHINE OPERATOR [address] [place] [address] PCP - General Family Medicine 09/03/24 Cabinet Installer Relationship Specialty Start Date End Date Lesa Soler, ROADMASTER.FRICTION WELDING MACHINE OPERATOR [address] [place] [address] PCP - General Family Medicine 09/03/24 Cabinet Installer Relationship Specialty Start Date End Date Lesa Soler, ROADMASTER.FRICTION WELDING MACHINE OPERATOR [address] [place] [address] PCP - General Family Medicine 09/03/24 Cabinet Installer Relationship Specialty Start Date End Date Lesa Soler, ROADMASTER.FRICTION WELDING MACHINE OPERATOR [address] [place] [address] PCP - General Family Medicine 09/03/24 Cabinet Installer Relationship Specialty Start Date End Date Lesa Soler, ROADMASTER.FRICTION WELDING MACHINE OPERATOR [address] [place], [place] [id number] PCP - General Family Medicine 09/03/24 Cabinet Installer Relationship Specialty Start Date End Date Lesa Soler ROADMASTER.FRICTION WELDING MACHINE OPERATOR [address] [place], [place] [phone] PCP - General Family Medicine 09/03/24 Cabinet Installer Relationship Specialty Start Date End Date eLsa Soler ROADMASTER.FRICTION WELDING MACHINE OPERATOR [address] [place], [place] [phone] PCP - General Family Medicine 09/03/24 Cabinet Installer Relationship Specialty Start Date End Date Lesa Soler ROADMASTER.FRICTION WELDING MACHINE OPERATOR [address] [place], [place] [phone] PCP - General Family Medicine 09/03/24 Team Status: Active Member Role Status Dates Lesa Soler NP TIP PRINTER-C Primary Care Provider Active Team Status: Inactive Member Role Status Dates Lesa Soler NP TIP PRINTER-C Primary Care Provider Active Start: February 06, 2025 End: February 06, 2025 Juan Tapia MD Emergency Provider Active Star t: February 06, 2025 End: February 06, 2025 Cabinet Installer Relationship Specialty Start Date End Date Lesa Soler, ROADMASTER.FRICTION WELDING MACHINE OPERATOR [address] [facility] [address] [place], [place] [phone] PCP - General Family Medicine 09/03/24 Goals (unrecognized section and content) Goals may be documented in a n alternate sectionGoals may be documented in an alternate section Source Comments (unrecognize d section and content) In the event this informatio n is protected by the Federal Confidentiality of Alcohol and Drug Abuse Patient Records regulations: The Federal rules restrict any use of the information to criminally investigate or prosecute any alcohol or drug abuse patient.[facility] the event this information is protected by the Federal Confidentiality of Alcohol and Drug Abuse Patient Records regulations: The Federal rules restrict any use of the information to criminally investigate or prosecute any alcohol or drug abuse patient.[facility] the event this information is protected by the Federal Confidentiality of Alcohol and Drug Abuse Patient Records regulations: The Federal rules restrict any use of the information to criminally investigate or prosecute any alcohol or drug abuse patient.[facility] the event this information is protected by the Federal Confidentiality of Alcohol and Drug Abuse Patient Records regulations: The Federal rules restrict any use of the information to criminally investigate or prosecute any alcohol or drug abuse patient.[facility] the event this information is protected by the Federal Confidentiality of Alcohol and Drug Abuse Patient Records regulations: The Federal rules restrict any use of the information to criminally investigate or prosecute any alcohol or drug abuse patient.[facility] the event this information is protected by the Federal Confidentiality of Alcohol and Drug Abuse Patient Records regulations: The Federal rules restrict any use of the information to criminally investigate or prosecute any alcohol or drug abuse patient.[facility] the event this information is protected by the Federal Confidentiality of Alcohol and Drug Abuse Patient Records regulations: The Federal rules restrict any use of the information to criminally investigate or prosecute any alcohol or drug abuse patient.[facility] the event this information is protected by the Federal Confidentiality of Alcohol and Drug Abuse Patient Records regulations: The Federal rules restrict any use of the information to criminally investigate or prosecute any alcohol or drug abuse patient.[facility] the event this information is protected by the Federal Confidentiality of Alcohol and Drug Abuse Patient Records regulations: The Federal rules restrict any use of the information to criminally investigate or prosecute any alcohol or drug abuse patient.[facility] the event this information is protected by the Federal Confidentiality of Alcohol and Drug Abuse Patient Records regulations: The Federal rules restrict any use of the information to criminally investigate or prosecute any alcohol or drug abuse patient.[facility] the event this information is protected by the Federal Confidentiality of Alcohol and Drug Abuse Patient Records regulations: The Federal rules restrict any use of the information to criminally investigate or prosecute any alcohol or drug abuse patient.[facility] the event this information is protected by the Federal Confidentiality of Alcohol and Drug Abuse Patient Records regulations: The Federal rules restrict any use of the information to criminally investigate or prosecute any alcohol or drug abuse patient.[facility] Reason for Visit (unrecogniz ed section and content) Reason Comments Fertility Preservation Wants to talk abo ut fertility Last pap 2 yrs ago,Unsure of period jun or July 2024, first one in a year Reason Comments Assessment Patient Education Specialty Diagnoses / Procedures Referred By Contac t Referred To Contact Nutrition / [facility] [place] [facility] Diagnoses Type 2 diabetes mellitus without complication, without long-term current use of insulin (HCC) Procedures CONSULT TO NUTRITION THERAPY MEDICAL NUTRITION ASSMT&IVNTJ INDIV EACH 15 CO Lesa Soler, ROADMASTER.FRICTION WELDING MACHINE OPERATOR [address] [place] [address] [facility] [place] [address] [place] [address] Referral ID Status Reason Start Date Expiration Date Visits Requested Visits Authorized [id number] Authorized PCP Requested Referral 09/03/2024 09/03/2025 1 4 Reason Comments Results labs Reason Comments Establish Care No concerns on depre ssion meds, does not remember the name of medication Sees psychiatrist Dr. Tamia No.for this medication. [facility] Reason Comments Reassessment Patient Education Reason Comments Head Congestion ST, [place], cough, sinus congestion x2 days Reason Onset Date Comments Results 11/12/2024 Reason Comments Infertility Specialty Diagnoses / Procedures Referred By Contac t Referred To Contact Diagnoses PCOS (polycystic ovarian syndrome) Primary female infertility Procedures CONSULT TO INFERTILITY CLINIC OFFICE/OUTPATIENT [facility] [address] [place] [address] [place] [address] Phone: tel: Referral ID Status Reason Start Date Expiration Date V isits Requested Visits Authorized [id number] Closed PCP Requested Referral Auto-Generated Referral 08/28/2024 08/28/2025 1 1 Reason Comments Diabetes Patient is going to make appointment to see eye doctor Reason Onset Date Comments ED Follow-up 02/06/2025 [place] [facility] 025 and [facility] ED 02/08/2025 FOR RECORDS PERTAINING TO PATIENTS WHO ARE OR HAVE BEEN ENROLLED IN A CHEMICAL DEPENDENCY/SUBSTANCEABUSE PROGRAM, SOME INFORMATION MAY BE OMITTED. This clinical summary was aggregated from multiple sources. Caution should be exercised in using it in the provision of clinical care. This summary normalizes information from multiple sources, and as a consequence, information in this document may materially change the coding, format and clinical context of patient data. In addition, data may be omitted in some cases. CLINICAL DECISIONS SHOULD BE BASED ON THE PRIMARY CLINICAL RECORDS. [facility] provides no warranty or guarantee of the accuracy or completeness of information in this document.
[2025-03-14] MEDS: Ondansetron 4 MG/2 ML Vial IV (20:54)
[2025-03-14] MEDS: Famotidine 200 MG/20 ML MDV 20 MG in 0.9% Normal Saline (Pres. free 8 ML 300 MG IV (20:55)
[2025-03-14] MEDS: Lorazepam 2 MG/ML WCH Syringe 1 MG IV (20:55)
[2025-03-14 21:01] VITALS: BP 122/74; PULSE 58; RESP 16; O2SAT 96
[2025-03-14 21:13] LABS: Internal QC Validated? YES +Cl - CLEAR BKGD; Pregnancy, Serum, hCG Quali. NEGATIVE Negative
[2025-03-14 21:20] LABS: Anion Gap 12 (5-15); BUN 10 mg/dL (4-19); BUN/Creat Ratio 12.5 RATIO (10-20); Calcium,Total 11.1 mg/dL (7.6-11.0); Carbon Dioxide 25.3 mmol/L (21.0-32.0); Chloride 103 mmol/L (98-108); Creatinine, Serum 0.77 mg/dL (0.70-1.20); EST Glomerular Filtration Rate 106 (>60); Estimated Creatinine Clearance 112.39 ml/min (50-250); Glucose 147 mg/dL (70-99); Potassium 3.8 mmol/L (3.3-5.1); Sodium Level 140 mmol/L (133-145)
[2025-03-14 22:25] VITALS: BP 125/91; PULSE 59; RESP 16; TEMP 36.7; O2SAT 97
== END 2025-03-14 22:37 | disposition home or self-care (01) ==
PROVIDERS: Emergency Provider Emergency Medicine; PCP Nurse Practitioner Family; Visit Provider Emergency Medicine
DX: R11.15 Cyclical vomiting syndrome unrelated to migraine (principal); F12.90 Cannabis use, unspecified, uncomplicated; F41.9 Anxiety disorder, unspecified; F17.220 Nicotine dependence, chewing tobacco, uncomplicated; F17.290 Nicotine dependence, other tobacco product, uncomplicated
CPT/HCPCS: 80048; 84703; 96374; 96375; 99285; J2405

== ENCOUNTER 2025-03-30 09:50 | Emergency (ER) | payer MEDICAID, SELFPAY ==
[2025-03-30 09:52] VITALS: BP 122/73; PULSE 70; RESP 20; TEMP 36.6; O2SAT 100; BMI 29.6
--- NOTE | 2025-03-30 10:01 | EDS_ITS ---
HPI HPI - GI History of Present Illness Chief Complaint: Nausea/Vomiting Informant: patient Abdominal Pain/Flank Pain Onset: Today Context: Sudden Onset Timing: Intermittent Quality: - (Vibrating) Location: Diffuse Worsened by: - (Certain positions) Relieved by: - (Certain positions) Nausea/Vomiting/Emesis GI Symptom: Positive for Nausea and Vomiting Quality: Positive for Nonbilious; Negative for Blood streaks, Coffee ground or H ematemesis Diarrhea/Melena/Hematochezia GI Symptom: Negative for Diarrhea, Melena or Hematochezia Associated Symptoms Associated Symptoms: Negative for Dysuria, Frequency or Hematuria Narrative Narrative: Patient presents with nausea and vomiting that began today. Patient states she woke up and felt like she was having a panic attack. Patient states that her panic attacks usually triggered nausea and vomiting. Patient states she has had multiple episodes of vomiting this morning. Patient states that it is mostly stomach contents. Patient denies any hematemesis or coffee-ground emesis. Patient admits to some diffuse abdominal pain. Patient describes it as vibrating in her abdomen. Patient states that it is worse with certain positions and better with other positions. Patient states it comes and goes. Patient denies any diarrhea, melena, or hematochezia. Patient denies any urinary complaints. Prior similar symptoms: Yes PFSH PFSH Medical History Anxiety Anxiety disorder Cannabis use disorder Cyclic vomiting syndrome PCOS (polycystic ovarian syndrome) Home Medications ?Medication ?Instructions ?Recorded ?Last Taken ?Type propranolol 80 mg capsule,24 20 mg PO BID PRN anxiety 02/23/24 Unknown History hr,extended release hydroxyzine pamoate 25 mg capsule 25 mg PO TID PRN PRN Anxiety #10 03/14/25 Unknown Rx CAPSULES ondansetron 4 mg disintegrating 4 mg PO Q8H PRN PRN Na usea #10 tabs 03/30/25 Unknown Rx tablet venlafaxine 150 mg 150 mg PO DAILY 03/30/25 Unk nown History capsule,extended release 24 hr (Effexor XR) Allergy/AdvReac Type Severity Reaction Status Date / Time No Known Allergies Allergy Verified 03/30/25 09:53 Family History Mother Cancer skin Surgical History right salpingectomy FH: cholecystectomy Social History housing: apartment number of children: 0 current occupational status: employed current occupation: [employer] Smoking Status: Current every day smoker tobacco type: e-cigarettes Smokeless tobacco user: chewing tobacco alcohol intake: current alcohol intake frequency: holidays/special occasions only substance use type: marijuana seatbelt use: always do you feel safe at home: Yes additional social history: [employer] ROS ROS ED Constitutional Constitutional ED: Reports chills, subjective and sweats; Denies fever(s) Eyes Eyes: Denies blurry vision or change in vision ENT ENT ED: Denies rhinorrhea or sore throat Cardiovascular Cardiovascular: Denies chest pain or palpitations Respiratory/Chest Respiratory/Chest: Denies cough or dyspnea Gastrointestinal Gastrointestinal: Reports abdominal pain, nausea and vomiting; Denies diarrhea or melena Genitourinary Genitourinary ED: Denies dysuria or hematuria Musculoskeletal Musculoskeletal: Denies back pain or neck pain Integumentary Denies abscess or rash Neurologic Neurologic: Denies headache(s) or weakness Psychiatric Psychiatric: Reports anxiety; Denies suicidal thoughts Allergic/Immunologic Allergic/Immunologic ED: Denies mouth swelling or urticaria EXAM Physical Exam Const Vital Signs: 03/30/25 09:52 Temperature 97.8 F Temperature Source Temporal Pulse Rate 70 Respiratory Rate 20 H Blood Pressure 122/73 H Blood Pressure Mean 89 Pulse Ox 100 Oxygen Delivery Method Room Air Positive well nourished and well developed General Appearance ED: well developed and NAD HEENT Reports moist mucous membranes Neck supple and no JVD Resp normal respiratory effort and clear to auscultation bilaterally Cardio regular rate and regular rhythm GI non-distended Palpation: soft and tender epigastric, LLQ, RLQ, LUQ, RUQ, periumbilical and suprapubic; Negative for guarding or rebound tenderness present Neuro CN's II-XII intact bilaterally, moves all extremities and no sensory deficits noted Sensorium / Orientation: alert Motor Exam: strength 5/5 throughout Psych mental status grossly normal MDM MDM MDM Narrative Medical decision making narrative: Differential diagnosis includes gastroenteritis, gastritis, peptic ulcer disease, duodenal ulcer, pancreatitis, urinary tract infection, and dehydration. CBC will be obtained to assess for leukocytosis and anemia. Comprehensive metabolic profile will be obtained to assess for hepatic function, renal function, and electrolyte abnormality. Lipase will be obtained to assess for pancreatitis. Urinalysis will be obtained to assess for urinary tract infection. Lab Data Attestation: I reviewed the patient's lab results. Lab results narrative: CBC was reviewed and was within normal limits. Comprehensive metabolic profile was reviewed and was essentially within normal limits. Lipase was reviewed and was normal at 32. Urinalysis was reviewed. There is no evidence of urinary tract infection or hematuria. Serum hCG was reviewed and was negative. Labs: Laboratory Results - last 24 hr 03/30/25 10:27 WBC 10.7 RBC 4.74 Hgb 13.0 Hct 40.3 MCV 85.0 MCH 27.4 MCHC 32.3 RDW Std Deviation 42.8 RDW Coeff of Jennifer 13.8 Plt Count 259 MPV 10.8 Immature Gran % (Auto) 0.400 Neut % (Auto) 84.0 H Lymph % (Auto) 12.9 L Warrick % (Auto) 2.3 Eos % (Auto) 0.0 Baso % (Auto) 0.4 Absolute Neuts (auto) 9.0 H Absolute Lymphs (auto) 1.38 Nucleated RBC % 0 Sodium 139 Potassium 4.1 Chloride 104 Carbon Dioxide 25.4 Anion Gap 10 BUN 7 Creatinine 0.80 Estim Creat Clear Calc 109.80 Est GFR (MDRD) Non-Af 101 BUN/Creatinine Ratio 9.3 L Glucose 129 H Calcium 10.7 Total Bilirubin 0.44 AST 26 ALT 29 Alkaline Phosphatase 63 Total Protein 7.7 Albumin 4.6 Globulin 3.1 Albumin/Globulin Ratio 1.5 Lipase 32 Serum , Qual NEGATIVE Urine Color Yellow Urine Clarity Clear Urine pH 6.5 Ur Specific Humphreys 1.015 Urine Protein 15 H Urine Glucose (UA) Normal Urine Ketones Negative Urine Occult Blood Negative Urine Nitrite Negative Urine Bilirubin Negative Urine Urobilinogen Normal Ur Leukocyte Esterase 25 H Urine RBC 0 SEEN Urine WBC 0-5 SEEN Ur Squamous Epith Cells 0-5 SEEN Urine Bacteria RARE Urine Mucus 1+ Treatment and Re-Evaluation :: Patient was given IV fluids, Ativan, and Zofran. Patient was sleeping and resting comfortably on reevaluation. Patient was feeling better. Patient was given a prescription for Zofran. Patient was instructed to follow-up with her primary care physician in 5 to 7 days. Patient was instructed to return if worse in any way. Patient understood and was agreeable with the plan. All questions were answered. Discharge Plan Triage Chief Complaint: Nausea/Vomiting Other Complaint: Anxiety ED Provider: Omkar James Dx/Rx/DC Orders Clinical Impression: Nausea and vomiting, Anxiety disorder Instructions: ED Panic Attack, ED Vomiting (Adult) Prescriptions: New ondansetron 4 mg tablet,disintegrating 4 mg PO Q8H PRN PRN (Reason: Nausea) Qty: 10 0RF No Action venlafaxine [Effexor XR] 150 mg capsule,extended release 24hr 150 mg PO DAILY propranolol 80 mg capsule,extended release 24 hr 20 mg PO BID PRN (Reason: anxiety) Rx Instructions: half a tablet to 2 tablets up to twice a day hydroxyzine pamoate 25 mg capsule 25 mg PO TID PRN PRN (Reason: Anxiety) Qty: 10 0RF Primary Care Provider: Joann Matamoros NP Referrals: Joann Matamoros NP, MEDICAL RESEARCH SCIENTIST-C [Primary Care Provider] - 5-7 Days Print Language: Upper Sorbian Disposition Disposition: Home, Self Care
--- OUTSIDE RECORDS SUMMARY | 2025-03-30 10:19 | XMS RPT_ITS | CCD ---
Author Organization [facility] Care Team Providers Care Liner Checker Name Role Phone ANA Marshall RN, Joshua Jang Unavailable Unavailfranchesca Marshall RN RN, Joshua Jang Unavailable UnavailBASIM Denis Unavailable Unavailable BASIM PRINCE Unavailable Unavailable Veena BATISTA, Collette Hansen Unavailable [phone] Ry Adler MD Primary Care Provider Ryder MAGNETIC GRINDER OPERATOR.Lesa GUEVARA Primary Care Provider LESA SOLER Primary Care Unavailable GEMA SMALL Attending Unavailable MARIO MONIQUE Referring Unavailable RYDER LESA Katlyn Primary Care Unavailable MARIO MONIQUE Attending Unavailable RY ADLER Primary Care Unavailable LESA SOLER Referring Unavailable RYDER LESA C Primary Care Unavailable STACI GIVENS Attending Unavailable RYDER, LESA Katlyn Referring Unavailable RYDER LESA C Primary Care Unavailable STACI GIVENS Attending Unavailable LESA SOLER Primary Care Unavailable [place] REGIONAL ACCOUNT DIRECTOR-CLesa Primary Care Provider Juan Tapia MD Emergency Provider [phone] NO, PHYSICIAN Primary Care Unavailable WU CRISOSTOMO Attending Unavailable Juan Tapia MD Attending Provider Dr. Andres Loyola DO Emergency Provider [facility] REGIONAL ACCOUNT DIRECTOR, Lesa Primary Care Unavailable Juan Tapia Attending Unavailable Christos Esparza Attending Unavailable [facility] REGIONAL ACCOUNT DIRECTOR, Lesa Primary Care Unavailable Care Physician, No Primary Primary Care Unava ilable Donell, Remus Attending Unavailable [facility] REGIONAL ACCOUNT DIRECTOR, Lesa Primary Care Unavailable Andres Loyola Attending Unavailable LESA SOLER Attending Unavailable TRIISADORA LESA C Primary Care Unavailable TRILL LESA C Referring Unavailable TRIISADORA, LESA C Attending Unavailable LESA SOLER Primary Care Unavailable Medications Current Medications Medication Drug Class(es) Dates Sig (Normalized) Sig (Original) acetaminophen 325 mg / oxyCODONE hydrochloride 5 mg oral tablet (2 sources) Opioid Agonist Start: 02-23-2024 take 1 tablet by mouth every six hours as needed for pain Oxycodone-Acetami nophen (Percocet) 5-325 mg tablet Active 1 {tbl} PO EVERY 6 HOURS as needed for pain 12 February 23, 2024 DULoxetine 30 mg delayed release oral capsule (2 sources) Serotonin and Norepinephrine Reuptake Inhibitor Start: 02-23-2024 Duloxetine (Cymbalta) 30 mg capsule,delayed release(DR/EC) Active 30 mg PO DAILY February 23, 2024 12:00am one capsule for 14 days and then increase to 2capsule hydrOXYzine pamoate 25 mg oral capsule (1 source) Antihistamine Start: 03-14-2025 take 1 capsule by mouth three times daily as needed for anxiety Hydroxyzine Pamoate 25 mg capsule Active 25 mg PO 3 TIMES DAILY NEEDED as needed for Anxiety March 14, 2025 12:00am lansoprazole 30 mg delayed release oral capsule (2 sources) Proton Pump Inhibitor Start: 07-15-2024 take 1 capsule by mouth once daily Lansoprazole (Prevacid) 30 mg capsule,delayed release(DR/EC) Active 30 mg PO DAILY July 15, 2024 12:00am metFORMIN hydrochloride 1000 mg oral tablet (3 sources) Biguanide Start: 03-28-2023 take 1 tablet by mouth twice daily Metformin 1,000 mg Tablet Active 1000 mg PO TWICE A DAY March 28, 2023 12:00am ondansetron 4 mg disintegrating oral tablet (8 sources) Serotonin-3 Receptor Antagonist Start: 07-15-2024 take 1 tablet by mouth every eight hours as needed for nausea Ondansetron 4 mg tablet,disintegra ting Active 4 mg PO EVERY 8 HOURS NEEDED as needed for Nausea March 14, 2025 12:00am Start: 02-28-2017 take 1 tablet by jluis three times daily ZOFRAN 4 MG TABS One tablet by mouth three times daily ONDANSETRON HCL [id number] Collette Curiel MD Start: 02-28-2017 take 1 tablet by jluis three times daily ZOFRAN 4 MG TABS One tablet by mouth three times daily ONDANSETRON HCL [id number] Collette Curiel MD progesterone 200 mg oral capsule (2 sources) Progesterone Start: 02-23-2024 take 1 capsule by mouth at bedtime Progesterone Micronized 200 mg capsule Active 200 mg PO AT BEDTIME February 23, 2024 12:00am promethazine hydrochloride 25 mg oral tablet (2 sources) Phenothiazine Start: 02-23-2024 take 1 tablet by mouth three times daily as needed for nausea and vomiting Promethazine 25 mg tablet Active 25 mg PO THREE TIMES A DAY as needed for nausea and vomiting 7 February 23, 2024 6:36am 24 hr propranolol hydrochloride 80 mg extended release oral capsule (2 sources) beta-Adrenergic Vasiliy Start: 02-23-2024 Propranolol 80 mg capsule,extended release 24 hr Active 20 mg PO TWICE A DAY as needed for anxiety February 23, 2024 12:00am half a tablet to 2 tablets up to twice a day venlafaxine 75 mg oral tablet (11 sources) Serotonin and Norepinephrine Reuptake Inhibitor venlafaxine [...] tablet by mouth twice daily DOXYCYCLINE HYCLATE [id number] Collette Curiel MD Norgestrel-Ethinyl Estradiol (5 sources) Estrogen Start: 09-23-2017 End: 09-26-2019 Norgestrel-Ethiny [...] 07/13/2017 Active famotidine 20 mg oral tablet (3 sources) Histamine-2 Receptor Antagonist Start: 02-20-2017 End: [...] tablet by mouth three times daily METRONIDAZOLE [id number] Collette Curiel MD Drug Treatment Unknown - [...] tablet by mouth four times daily SUCRALFATE [id number] Collette Curiel MD take 1 tablet by mouth four time s daily CARAFATE 1 GM TABS One tablet by mouth four times daily SUCRALFATE [id number] Collette Curiel MD Problems Active Problems Problem Classification Problem Date Documented Date Episodic/Chronic Administrative/socia l admission (7 sources) Patient encounter status; Translations: [Dietary counseling and surveillance] 09-11-2024 Episodic Anxiety disorders (20 sources) Anxiety; Translations: [Anxiety disorder, unspecified] Onset: 09-22-2024 03-28-2023 Chronic Diabetes mellitus without complication (19 sources) Type 2 diabetes mellitus without complication; Translations: [Type 2 diabetes mellitus without complications] Onset: 09-03-2024 09-11-2024 Chronic Diseases of white blood cells (2 sources) Leukocytosis; Translations: [Elevated white blood cell count, unspecified] 07-23-2024 Chronic Disorders of lipid metabolism (10 sources) Dyslipidemia; Translations: [Hyperlipidemia, unspecified] Onset: 11-08-2024 11-08-2024 Chronic Esophageal disorders (4 sources) Gastroesophageal reflux disease; Translations: [Gastro-esophageal reflux disease without esophagitis] Onset: 02-28-2017 02-28-2017 Chronic Female infertility (3 sources) Primary female infertility; Translations: [Female infertility, unspecified] Onset: 11-18-2024 08-28-2024 Chronic Fluid and electrolyte disorders (4 sources) Dehydration; Translations: [Dehydration] 10-08-2024 Episodic Menstrual disorders (16 sources) Secondary amenorrhea; Translations: [Secondary amenorrhea] Onset: 09-22-2024 09-26-2019 Chronic Other disorders of stomach and duodenum (2 sources) Cyclical vomiting syndrome; Translations: [Cyclical vomiting syndrome unrelated to migraine] 09-30-2024 Episodic Other endocrine disorders (3 sources) Polycystic ovaries; Translations: [Polycystic ovarian syndrome] Onset: 02-28-2017 02-28-2017 Chronic Other endocrine disorders (20 sources) Polycystic ovary syndrome; Translations: [Polycystic ovarian syndrome] Onset: 02-28-2017 08-28-2024 Chronic Other endocrine disorders (1 source) Polycystic ovarian syndrome; Translations: [PCOS (polycystic ovarian syndrome)] Onset: 11-18-2024 Chronic Other injuries and conditions due to external causes (3 sources) Closed injury of head; Translations: [Unspecified injury of head, initial encounter] 01-10-2019 Episodic Other nutritional; endocrine; and metabolic disorders (3 sources) Overweight; Translations: [Overweight] Onset: 02-28-2017 02-28-2017 Chronic Other nutritional; endocrine; and metabolic disorders (1 source) Obese class I; Translations: [Obesity, Class I, BMI 30-34.9] 10-30-2024 Chronic Other nutritional; endocrine; and metabolic disorders (2 sources) Body mass index 30+ - obesity; Translations: [Body mass index (BMI) 32.0-32.9, adult] 10-08-2024 Chronic Other screening for suspected conditions (not mental disorders or infectious disease) (1 source) Cancer cervix screening status; Translations: [Encounter for screening for malignant neoplasm of cervix] 08-28-2024 Episodic Other upper respiratory infections (1 source) Acute upper respiratory infection; Translations: [Acute upper respiratory infection, unspecified] 11-03-2024 Episodic Residual codes; unclassified (1 source) Early satiety; Translations: [Early satiety] 09-03-2024 Episodic Residual codes; unclassified (2 sources) H/O: major abdominal surgery; Translations: [Acquired absence of other genital organ(s)] 11-18-2024 Episodic Substance-related disorders (2 sources) Cannabis use, unspecified, uncomplicated; Translations: [Cannabis use disorder] 09-30-2024 Episodic Past or Other Problems Problem Classification Problem Date Documented Date Episodic/Chronic Abdominal pain (20 sources) Right upper quadrant pain; Translations: [Epigastric pain] Onset: 05-16-2017 05-16-2017 Episodic Biliary tract disease (15 sources) Calculus of gallbladder without cholecystitis without obstruction; Translations: [Gallstone] Onset: 08-28-2017 08-28-2017 Episodic Inflammatory diseases of female pelvic organs (3 sources) Female pelvic inflammatory disease; Translations: [Female pelvic inflammatory disease, unspecified] Onset: 02-28-2017 03-01-2017 Episodic Nausea and vomiting (10 sources) Nausea; Translations: [Nausea] Onset: 09-03-2024 09-03-2024 Episodic Noninfectious gastroenteritis (13 sources) Chronic diarrhea; Translations: [Noninfective gastroenteritis and colitis, unspecified] Onset: 09-03-2024 09-03-2024 Episodic Other skin disorders (6 sources) Hirsutism; Translations: [Hirsutism] Onset: 11-27-2024 11-27-2024 Episodic Other skin disorders (1 source) Hirsutism; Translations: [Hirsutism] Onset: 11-08-2024 Episodic Residual codes; unclassified (2 sources) Early satiety; Translations: [Early satiety] Onset: 09-03-2024 Episodic Suicide and intentional self-inflicted injury (14 sources) Suicidal thoughts; Translations: [Suicidal ideations] Onset: 09-22-2024 03-28-2023 Episodic Unclassified (3 sources) right salpingectomy 04-23-2022 Unclassified (3 sources) Contusion of left shoulder, initial encounter 01-10-2019 Unclassified (2 sources) Patient encounter status 11-18-2024 Results Test Name Value Interpretation Reference Range Facility [facility] 03-21-2025 CONNOR Telephone (GIULIANA) JOSHUA CHOUDHARY ([id number]) 1995 F Date Time Provider Department 03/21/25 LESA SOLER During your visit today, we recorded the following information about you: Myra Duran MA 03/21/2025 8:32 AM Signed MARIBELL Ruiz Kristin C, APRN.CNP 03/21/2025 10:13 AM Signed Thank you. Please see orders. Lesa Soler APRN.Lesa Priest APRN.PAOLA 03/21/2025 10:13 AM Signed Addended by: LESA SOLER on: 03/21/2025 10:13 AM Modules accepted: Myra Carr MA 03/21/2025 11:06 AM Signed Left message informing patient, phone number to reach the office was left for any questions or concerns. Myra Duran MA Allergies As of Date: 03/21/2025 (No Known Allergies) Date Reviewed: 11/27/2024 Reviewed by: Lesa Soler APRN.DE ICER KIT ASSEMBLER - Fully Assessed Reason for Visit: Lab Orders [1688] Primary Visit Diagnosis:Dyslipidemia [E78.5] Order(s):COMPLETE BLOOD COUNT [SQCBC] Order #: [id number] FUTURE COMPREHENSIVE METABOLIC PANEL [SQCMP] Order #: [id number] FUTURE LIPID PANEL, FASTING [SQLIPB] Order #: [id number] FUTURE Prescriptions as of 03/21/2025 - venlafaxine (EFFEXOR) 75 mg tablet Take 75 mg by mouth once daily. Taking 112 mg a day Problem List As Of Date 03/21/2025 Noted Resolved Abdominal pain, epigastric [R10.13] 05/16/2017 Gallstones [K80.20] 08/28/2017 RUQ pain [R10.11] 09/28/2017 Type 2 diabetes mellitus without complication, *09/03/2024 Anxiety [F41.9] 09/22/2024 Polycystic ovarian syndrome [E28.2] 02/28/2017 Secondary amenorrhea [N91.1] 09/22/2024 Suicidal ideation [R45.851] 09/22/2024 Chronic diarrhea [K52.9] 09/22/2024 Dyslipidemia [E78.5] 11/08/2024 Hirsutism [L68.0] 11/27/2024 Encounter Status:Closed by MYRA DURAN on 03/21/25 [facility] Anion gap in Serum or Plasma Ordered By: Andres Loyola on 03-14-2025 Anion gap [Moles/Vol] 12 mmol/L 5-15 [facility] BUN/creatinine ratioOrdered By: Andres Loyola on 03-14-2025 Urea nitrogen/Creatinine [Mass ratio] 12.5 mg/mg 10- [facility] Basic Metabolic Profile (BMP )on 03-14-2025 BUN/CRE 12.5 RATIO Normal - [facility] Comment on above: Performed By: #### L 700.6800, L500.2500 #### [facility] [address] [place], [address] Calcium [Mass/Vol] 11.1 mg/dL High 7.6-11.0 [facility] Comment on above: Performed By: #### L 700.6800, L500.2500 #### [facility] [address] [place], [address] Chloride [Moles/Vol] 103 mmol/L Normal 98-108 [facility] Comment on above: Performed By: #### L 700.6800, L500.2500 #### [facility] [address] [place], [address] CO2 [Moles/Vol] 25.3 mmol/L Normal 21.0-32.0 [facility] Comment on above: Performed By: #### L 700.6800, L500.2500 #### [facility] [address] [place], [address] Creatinine [Mass/Vol] 0.77 mg/dL Normal 0.70-1.20 [facility] Comment on above: Performed By: #### L 700.6800, L500.2500 #### [facility] [address] [place], [address] ECRCL 112.39 ml/min Normal 50-250 [facility] Comment on above: Performed By: #### L 700.6800, L500.2500 #### [facility] [address] [place], [address] GAP 12 Normal 5-15 [facility] Comment on above: Performed By: #### L 700.6800, L500.2500 #### [facility] [address] [place], [address] GFR/1.73 sq M.predicted among non-blacks MDRD (S/P/Bld) [Vol rate/Area] 106 mL/min/{1.73_m2} Normal >60 [facility] Comment on above: Result Comment: mL/m in/1.73m2 CKD-EPI Creatinine Equation (2020) Performed By: #### L 700.6800, L500.2500 #### [facility] [address] [place], [address] Glucose [Mass/Vol] 147 mg/dL High 70-99 [facility] Comment on above: Performed By: #### L 700.6800, L500.2500 #### [facility] [address] [place], [address] Potassium [Moles/Vol] 3.8 mmol/L Normal 3.3-5.1 [facility] Comment on above: Performed By: #### L 700.6800, L500.2500 #### [facility] [address] [place], [address] Sodium [Moles/Vol] 140 mmol/L Normal 133-145 [facility] Comment on above: Performed By: #### L 700.6800, L500.2500 #### [facility] [address] [place], [address] Urea nitrogen [Mass/Vol] 10 mg/dL Normal 4-19 [facility] Comment on above: Performed By: #### L 700.6800, L500.2500 #### [facility] [address] [place], [address] Carbon dioxide, total [Moles /volume] in Central venous bloodOrdered By: Andres Mcmahon 03-14-2025 CO2 [Moles/Vol] 25.3 mmol/L 21.0-32.0 [facility] Chloride assayOrdered By: Jonathon Loyola on 03-14-2025 Chloride [Moles/Vol] 103 mmol/L 98-108 [facility] Emergency Department Summary on 03-14-2025 Emergency Department Summary [facility] Medical Records Department [address] [place] [address] Emergency Department Summary 03/14/25 MR#: [id number] Acct: [id number] Name: JOSHUA CHOUDHARY Rep #: [id number] : 1995 30 From: Andres Pedroza PCP: Lesa Soler NP-C Status:DEP ER Location: ED HPI History of Present Illness Chief Complaint: Anxiety Informant: patient Narrative Narrative: Increased anxiety today with vomiting x 6. Bile no hematemesis. No diarrhea. States going through her divorce. Denies suicidal homicidal ideations. Cyclic vomiting history with marijuana use last use this morning. She reports she quit using 1 time for 3 years still had symptoms therefore does not believe it is from marijuana. She reports hot showers does help her. She has been here previously for similar symptoms treated for symptoms with improvement. Last menstrual period a week ago. Denies any allergies. Prior similar symptoms: Yes PFSH PFSH Medical History Anxiety Anxiety disorder Cannabis use disorder Cyclic vomiting [...] #10 tab s 09/30/24 Unknown Rx tablet hydroxyzine pamoate 25 mg capsule 25 mg PO TID PRN PRN Anxiety #10 03/14/25 Unknown Rx CAPSULES ondansetron 4 mg disintegrating 4 mg PO Q8H PRN PRN Nausea #10 tab s 03/14/25 Unknown Rx tablet Allergy/AdvReac Type Severity Reaction Status Date / Time No Known Allergies Allergy Verified 03/14/25 19:40 Family History Mother Cancer skin Surgical History right salpingectomy FH: cholecystectomy Social History housing: apartment number of children: 0 current occupational status: employed current occupation: [employer] Smoking Status: Current every day smoker tobacco type: e-cigarettes Smokeless tobacco user: chewing tobacco alcohol intake: current alcohol intake frequency: holidays/special occasions only substance use type: marijuana seatbelt use: always do you feel safe at home: Yes additional social history: [employer] ROS ROS ED Constitutional Constitutional ED: Denies fever(s) Cardiovascular Cardiovascular: Denies chest pain Respiratory/Chest Respiratory/Chest: Denies cough Gastrointestinal Gastrointestinal: Reports vomiting; Denies abdominal pain or diarrhea Musculoskeletal Musculoskeletal: Denies none Integumentary Denies rash or wounds Neurologic Neurologic: Denies weakness Psychiatric Psychiatric: Reports anxiety; Denies suicidal ideation or suicidal thoughts EXAM Physical Exam Const Vital Signs: 03/14/25 19:38 03/14/25 21:01 03/14/25 22:25 Temperature 98.4 F 98.1 F Temperature Source Oral Pulse Rate 99 58 L 59 L Respiratory Rate 16 16 16 Blood Pressure 140/74 H 122/74 H 125/91 H Blood Pressure Mean 96 90 102 Pulse Ox 100 96 97 Oxygen Delivery Method Room Air Room Air Positive well nourished and well developed General Appearance ED: well developed and NAD HEENT Reports moist mucous membranes normocephalic and atraumatic Eyes General Eye ED: Yes normal appearance of both eyes Neck full ROM Chest Wall Chest: Negative for tenderness Resp normal respiratory effort and normal air movement Effort and Inspection: symmetric chest movement; Negative for respiratory distress Cardio regular rate, regular rhythm and no murmurs Peripheral Pulses: pulses 2+ throughout GI normal to inspection, nondistended, normoactive bowel sounds and non-tender Palpation: Negative for guarding or rebound tenderness present Extremity normal to inspection General Extremety ED: Negative for edema or tenderness General Extremity: Negative fo (more content not included)... Normal [facility] Glomerular filtration rate ( GFR) estimation/1.73 sq m using serum, plasma, or whole bOrdered By: Andres Loyola on 03-14-2025 GFR/1.73 sq M.predicted among non-blacks MDRD (S/P/Bld) [Vol rate/Area] 106 mL/min/{1.73_m2} >60 [facility] Comment on above: mL/min/1.73m2 CKD-EP I Creatinine Equation (2020) Potassium measurement (mass/ volume)Ordered By: Andres Loyola on 03-14-2025 Potassium (Unsp spec) [Mass/Vol] 3.8 mmol/L 3.3-5.1 [facility] ,Serum,hCG Quali.on 03-14-2025 HCG, SERUM QUAL Negative Normal [facility] Comment on above: Performed By: #### L 700.6800, L500.2500 #### [facility] [address] [place] [address], [address] Serum beta-hCG test, qualita tiveOrdered By: Andres Loyola on 03-14-2025 Beta HCG ( test) Ql Negative [facility] Serum creatinine measurement (mass/volume)Ordered By: Andres Loyola on 03-14-2025 Creatinine [Mass/Vol] 0.77 mg/dL 0.70-1.20 [facility] Serum glucose measurement (m ass/volume)Ordered By: Andres Loyola on 03-14-2025 Glucose [Mass/Vol] 147 mg/dL High 70-99 [facility] Serum or plasma calcium prakash urement (mass/volume)Ordered By: Andres Loyola on 03-14-2025 Calcium [Mass/Vol] 11.1 mg/dL High 7.6-11.0 [facility] Serum or plasma urea nitroge n measurement (mass/volume)Ordered By: Andres Loyola on 03-14-2025 Urea nitrogen [Mass/Vol] 10 mg/dL 4-19 [facility] Sodium levelOrdered By: Andres Loyola on 03-14-2025 Sodium [Moles/Vol] 140 mmol/L 133-145 [facility] ED Prov Noteon 02-08-2025 ED Prov Note HPI: 02/08/2025, Time: @NOWNR@ Joshuatd Choudhary is a 30 y.o. female [...] are negative. PAST HISTORY Past Medical History: @[facility] Past Surgical History: has no past [...] day as needed for itching . Follow-up: [facility] [address] [facility] [address] [facility] [id number] In 3 days Final Impression: 1. Panic attack (Please note that portions of this note were completed with a voice recognition program. Efforts were made to edit the dictations but occasionally words are mis-transcribed.) Wu Crisostomo MD 02/08/25 0854 AUTHENTICATED BY WU CRISOSTOMO, ON 02/08/2025 08:54:[address] [facility] Absolute lymphocyte countOrd ered By: Juan Tapia on 02-06-2025 Lymphocytes Auto (Unsp spec) [#/Vol] 2.06 10*3/uL 0.83-4.51 [facility] Absolute neutrophil countOrd ered By: Juan Tapia on 02-06-2025 Neutrophils (Bld) [#/Vol] 12.2 10*3/uL High 2.0-7.7 [facility] Alcohol, Blood (Medical)-Ser umon 02-06-2025 SERUM ETOH < 10.1 Normal <=10.0 [facility] Comment on above: Result Comment: Hemo lysis Present, Results may be affected. This test is for medical purposes only. The legal definition of intoxication varies according to local law. Performed By: #### L 501.2450, L700.6800, L100.0100, L500.4050, L505.5000, L501.9100 ####[facility] [id number] [place], [address] Amphetamine detection with 1 000 ng/mL as cutoffOrdered By: Juan Tapia on 02-06-2025 Amphetamines Screen method >1000 ng/mL Ql (U) Negative < 200 ng/mL [facility] Anion gap in Serum or Plasma Ordered By: Juan Tapia on 02-06-2025 Anion gap [Moles/Vol] 11 mmol/L 5-15 [facility] Automated lymphocyte count a s percentage of total leukocytesOrdered By: Juan Tapia on 02-06-2025 Lymphocytes/100 WBC Auto (Unsp spec) 13.9 % Low 19-41 [facility] BUN/creatinine ratioOrdered By: Juan Tapia on 02-06-2025 Urea nitrogen/Creatinine [Mass ratio] 9.7 mg/mg Low 10-20 [facility] Basophil percentageOrdered B y: Juan Tapia on 02-06-2025 Basophils/100 WBC (Bld) 0.2 % 0-1 [facility] Bilirubin, totalOrdered By: Juan Tapia on 02-06-2025 Bilirubin [Mass/Vol] 0.41 mg/dL 0.00-1.30 [facility] CBC W/Diff, Automatedon Absolute Lymph 2.06 X10 3/uL Normal 0.83-4.51 [facility] Comment on above: Performed By: #### L 501.2450, L700.6800, L100.0100, L500.4050, L505.5000, L501.9100 #### [facility] [address] [place], [place], [address] Absolute Neut 12.2 X10 3/uL High 2.0-7.7 [facility] Comment on above: Performed By: #### L 501.2450, L700.6800, L100.0100, L500.4050, L505.5000, L501.9100 #### [facility] [address] [place], [address] Basophils/100 WBC (Bld) 0.2 % Normal 0-1 [facility] Comment on above: Performed By: #### L 501.2450, L700.6800, L100.0100, L500.4050, L505.5000, L501.9100 #### [facility] [address] [place], [address] Eosinophils/100 WBC (Bld) 0.0 % Normal 0-5 [facility] Comment on above: Performed By: #### L 501.2450, L700.6800, L100.0100, L500.4050, L505.5000, L501.9100 #### [facility] [address] [place], [address] Erythrocyte distribution width (RBC) [Ratio] 13.2 % Normal 11.6-14.6 [facility] Comment on above: Performed By: #### L 501.2450, L700.6800, L100.0100, L500.4050, L505.5000, L501.9100 #### [facility] [address] [place], [address] Hematocrit (Bld) [Volume fraction] 40.4 % Normal 37-47 [facility] Comment on above: Performed By: #### L 501.2450, L700.6800, L100.0100, L500.4050, L505.5000, L501.9100 #### [facility] [address] [place], [address] Hemoglobin (Bld) [Mass/Vol] 13.5 g/dL Normal 12.0-15.0 [facility] Comment on above: Performed By: #### L 501.2450, L700.6800, L100.0100, L500.4050, L505.5000, L501.9100 #### [facility] [address] [place], [address] IG% 0.800 Normal 0.0-0.9 [facility] Comment on above: Result Comment: IG% - Immature Granulocytes (promyelocytes, myelocytes and metamyelocytes) > 1% indicates that a LEFT SHIFT is Present. Performed By: #### L 501.2450, L700.6800, L100.0100, L500.4050, L505.5000, L501.9100 #### [facility] [address] [place], [address] Lymphocytes/100 WBC (Bld) 13.9 % Low 19-41 [facility] Comment on above: Performed By: #### L 501.2450, L700.6800, L100.0100, L500.4050, L505.5000, L501.9100 #### [facility] [address] [place], [address] MCH (RBC) [Entitic mass] 28.7 pg Normal 27.0-32.0 [facility] Comment on above: Performed By: #### L 501.2450, L700.6800, L100.0100, L500.4050, L505.5000, L501.9100 #### [facility] [address] [place], [address] MCHC (RBC) [Mass/Vol] 33.4 g/dL Normal 32-36 [facility] Comment on above: Performed By: #### L 501.2450, L700.6800, L100.0100, L500.4050, L505.5000, L501.9100 #### [facility] [address] [place], [address] MCV (RBC) [Entitic vol] 85.8 fL Normal 81-99 [facility] Comment on above: Performed By: #### L 501.2450, L700.6800, L100.0100, L500.4050, L505.5000, L501.9100 #### [facility] [address] [place], [address] Monocytes/100 WBC (Bld) 2.3 % Normal 0-10 [facility] Comment on above: Performed By: #### L 501.2450, L700.6800, L100.0100, L500.4050, L505.5000, L501.9100 #### [facility] [address] [place], [address] Neutrophils/100 WBC (Bld) 82.8 % High 47-70 [facility] Comment on above: Performed By: #### L 501.2450, L700.6800, L100.0100, L500.4050, L505.5000, L501.9100 #### [facility] [address] [place], [address] Nucleated RBC (Bld) [#/Vol] 0 10*3/uL Normal 0-5 [facility] Comment on above: Performed By: #### L 501.2450, L700.6800, L100.0100, L500.4050, L505.5000, L501.9100 #### [facility] [address] [place], [address] Platelet mean volume (Bld) [Entitic vol] 11.3 fL Normal 6.2-12.0 [facility] Comment on above: Performed By: #### L 501.2450, L700.6800, L100.0100, L500.4050, L505.5000, L501.9100 #### [facility] [address] [place], [address] Platelets (Bld) [#/Vol] 324 10*3/uL Normal 150-450 [facility] Comment on above: Performed By: #### L 501.2450, L700.6800, L100.0100, L500.4050, L505.5000, L501.9100 #### [facility] [address] [place], [address] RBC (Bld) [#/Vol] 4.71 10*6/uL Normal 4.2-5.4 [facility] Comment on above: Performed By: #### L 501.2450, L700.6800, L100.0100, L500.4050, L505.5000, L501.9100 #### [facility] [address] [place], [place], [id number] ([address] RDW SD 41.2 fl Normal 35.1-43.9 [facility] Comment on above: Performed By: #### L 501.2450, L700.6800, L100.0100, L500.4050, L505.5000, L501.9100 #### [facility] [address] [place], [place], [id number] ([address] WBC (Bld) [#/Vol] 14.8 10*3/uL High 4.4-11.0 [facility] Comment on above: Performed By: #### L 501.2450, L700.6800, L100.0100, L500.4050, L505.5000, L501.9100 #### [facility] [address] [place], [place], [id number] Carbon dioxide, total [Moles /volume] in Central venous bloodOrdered By: Juan Tapia on 02-06-2025 CO2 [Moles/Vol] 25.0 mmol/L 21.0-32.0 [facility] Chloride assayOrdered By: Luisito Tapia on 02-06-2025 Chloride [Moles/Vol] 105 mmol/L 98-108 [facility] Comprehensive Metabolic Prof ilon 02-06-2025 Albumin [Mass/Vol] 4.7 g/dL Normal 3.5-5.0 [facility] Comment on above: Performed By: #### L 501.2450, L700.6800, L100.0100, L500.4050, L505.5000, L501.9100 ####[facility] [address] [place], [address] Albumin/Globulin [Mass ratio] 1.5 {ratio} Normal 0.9-2.4 [facility] Comment on above: Performed By: #### L 501.2450, L700.6800, L100.0100, L500.4050, L505.5000, L501.9100 ####[facility] [address] [place], [address] ALK PHOS 65 U/L Normal 35-104 [facility] Comment on above: Performed By: #### L 501.2450, L700.6800, L100.0100, L500.4050, L505.5000, L501.9100 ####[facility] [address] [place], [address] ALT [Catalytic activity/Vol] 23 U/L Normal <=34 [facility] Comment on above: Performed By: #### L 501.2450, L700.6800, L100.0100, L500.4050, L505.5000, L501.9100 ####[facility] [address] [place], [address] AST [Catalytic activity/Vol] 27 U/L Normal <=31 [facility] Comment on above: Performed By: #### L 501.2450, L700.6800, L100.0100, L500.4050, L505.5000, L501.9100 ####[facility] [address] [place], [address] Bilirubin [Mass/Vol] 0.41 mg/dL Normal 0.00-1.30 [facility] Comment on above: Performed By: #### L 501.2450, L700.6800, L100.0100, L500.4050, L505.5000, L501.9100 ####[facility] [address] [place], [address] BUN/CRE 9.7 RATIO Low 10-20 [facility] Comment on above: Performed By: #### L 501.2450, L700.6800, L100.0100, L500.4050, L505.5000, L501.9100 ####[facility] [address] [place], [address] Calcium [Mass/Vol] 11.2 mg/dL High 7.6-11.0 [facility] Comment on above: Performed By: #### L 501.2450, L700.6800, L100.0100, L500.4050, L505.5000, L501.9100 ####[facility] [address] [place], [address] Chloride [Moles/Vol] 105 mmol/L Normal 98-108 [facility] Comment on above: Performed By: #### L 501.2450, L700.6800, L100.0100, L500.4050, L505.5000, L501.9100 ####[facility] [address] [place], [address] CO2 [Moles/Vol] 25.0 mmol/L Normal 21.0-32.0 [facility] Comment on above: Performed By: #### L 501.2450, L700.6800, L100.0100, L500.4050, L505.5000, L501.9100 ####[facility] [address] [place], [address] Creatinine [Mass/Vol] 0.82 mg/dL Normal 0.70-1.20 [facility] Comment on above: Performed By: #### L 501.2450, L700.6800, L100.0100, L500.4050, L505.5000, L501.9100 ####[facility] [address] [place], [address] ECRCL 106.76 ml/min Normal 50-250 [facility] Comment on above: Performed By: #### L 501.2450, L700.6800, L100.0100, L500.4050, L505.5000, L501.9100 ####[facility] [address] [place], [address] GAP 11 Normal 5-15 [facility] Comment on above: Performed By: #### L 501.2450, L700.6800, L100.0100, L500.4050, L505.5000, L501.9100 ####[facility] [address] [place], [address] GFR/1.73 sq M.predicted among non-blacks MDRD (S/P/Bld) [Vol rate/Area] 97 mL/min/{1.73_m2} Normal >60 [facility] Comment on above: Result Comment: mL/m in/1.73m2 CKD-EPI Creatinine Equation (2020) Performed By: #### L 501.2450, L700.6800, L100.0100, L500.4050, L505.5000, L501.9100 ####[facility] [address] [place], [address] Globulin (S) [Mass/Vol] 3.2 g/dL Normal 2.2-4.2 [facility] Comment on above: Performed By: #### L 501.2450, L700.6800, L100.0100, L500.4050, L505.5000, L501.9100 ####[facility] [address] [place], [address] Glucose [Mass/Vol] 177 mg/dL High 70-99 [facility] Comment on above: Performed By: #### L 501.2450, L700.6800, L100.0100, L500.4050, L505.5000, L501.9100 ####[facility] [address] [place], [address] Potassium [Moles/Vol] 4.7 mmol/L Normal 3.3-5.1 [facility] Comment on above: Performed By: #### L 501.2450, L700.6800, L100.0100, L500.4050, L505.5000, L501.9100 ####[facility] [address] [place], [address] Sodium [Moles/Vol] 141 mmol/L Normal 133-145 [facility] Comment on above: Performed By: #### L 501.2450, L700.6800, L100.0100, L500.4050, L505.5000, L501.9100 ####[facility] [address] [place], [address] T PROT 7.9 g/dL Normal 5.9-8.4 [facility] Comment on above: Performed By: #### L 501.2450, L700.6800, L100.0100, L500.4050, L505.5000, L501.9100 ####[facility] [address] [place], [address] Urea nitrogen [Mass/Vol] 8 mg/dL Normal 4-19 [facility] Comment on above: Performed By: #### L 501.2450, L700.6800, L100.0100, L500.4050, L505.5000, L501.9100 ####[facility] [address] [place], [address] Emergency Department Summary on 02-06-2025 Emergency Department Summary [facility] Medical Records Department [address] [place] [address] Emergency Department Summary 02/06/25 MR#: [id number] Acct: [id number] Name: JOSHUA CHOUDHARY Rep #: [id number] : 1995 30 From: Juan Tapia MD [...] states she wants her panic to stop. [facility] Medical History Anxiety disorder Cannabis use disorder [...] 0 current occupational status: employed current occupation: [employer] Smoking Status: Never smoker Smokeless tobacco [...] Upon repea (more content not included)... Normal [facility] Eosinophil percentageOrdered By: Juan Tapia on 02-06-2025 Eosinophils/100 WBC (Bld) 0.0 % 0-5 [facility] Erythrocyte distribution wid th ratioOrdered By: Juan Tapia on 02-06-2025 Erythrocyte distribution width (RBC) [Ratio] 13.2 % 11.6-14.6 [facility] Erythrocyte distribution wid th standard deviationOrdered By: Juan Tapia on 02-06-2025 Erythrocyte distribution width (RBC) [Ratio] 41.2 fl 35.1-43.9 [facility] Glomerular filtration rate ( GFR) estimation/1.73 sq m using serum, plasma, or whole bOrdered By: Juan Tapia on 02-06-2025 GFR/1.73 sq M.predicted among non-blacks MDRD (S/P/Bld) [Vol rate/Area] 97 mL/min/{1.73_m2} >60 [facility] Comment on above: mL/min/1.73m2 CKD-EP I Creatinine Equation (2020) Hematocrit Auto (Bld) [Volum e fraction]Ordered By: Juan Tapia on 02-06-2025 Hematocrit (Bld) [Volume fraction] 40.4 % 37-47 [facility] Hemoglobin measurementOrdere d By: Juan Tapia on 02-06-2025 Hemoglobin (Bld) [Mass/Vol] 13.5 g/dL 12.0-15.0 [facility] Immature granulocytes/100 WB C Auto (Bld)Ordered By: Juan Tapia on 02-06-2025 Immature granulocytes/100 WBC (Bld) 0.800 % 0.0-0.9 [facility] Comment on above: IG% - Immature Granu locytes (promyelocytes, myelocytes and metamyelocytes) > 1% indicates that a LEFT SHIFT is Present. Laboratory - Chemistry and C hemistry - challengeOrdered By: Juan Tapia on 02-06-2025 AST [Catalytic activity/Vol] 27 U/L <32 [facility] Lipaseon 02-06-2025 Lipase [Catalytic activity/Vol] 20 U/L Normal 13-75 [facility] Comment on above: Result Comment: Jose porter note: LIPASE revised reference range effective 23. New Lipase methodology. Expected to produce lower values than the previous assay method. NEW Reference Range: 13 - 75 U/L Performed By: #### L 501.2450, L700.6800, L100.0100, L500.4050, L505.5000, L501.9100 ####[facility] [address] [place], [address] Lipase measurementOrdered By : Juan Tapia on 02-06-2025 Lipase [Catalytic activity/Vol] 20 U/L 13-75 [facility] Comment on above: Please note:LIPASE r evised reference range effective 23. New Lipase methodology. Expected to produce lower values than the previous assay method. NEW Reference Range: 13 - 75 U/L MCV (mean corpuscular volume ) determinationOrdered By: Juan Tapia on 02-06-2025 MCV (RBC) [Entitic vol] 85.8 fL 81-99 [facility] Mean corpuscular hemoglobin (MCH) determinationOrdered By: Juan Tapia on 02-06-2025 MCH (RBC) [Entitic mass] 28.7 pg 27.0-32.0 [facility] Mean corpuscular hemoglobin concentration (MCHC) determinationOrdered By: Juan Tapia on 02-06-2025 MCHC (RBC) [Mass/Vol] 33.4 g/dL 32-36 [facility] Mean platelet volume determi nationOrdered By: Juan Tapia on 02-06-2025 Platelet mean volume (Bld) [Entitic vol] 11.3 fL 6.2-12.0 [facility] Monocyte percentageOrdered B y: Juan Tapia on 02-06-2025 Monocytes/100 WBC (Bld) 2.3 % 0-10 [facility] Neutrophil percentageOrdered By: Juan Tapia on 02-06-2025 Neutrophils/100 WBC (Bld) 82.8 % High 47-70 [facility] No Panel InformationOrdered By: Juan Tapia on 02-06-2025 Urine Buprenorphine Qualitative Negative < 200 ng/mL [facility] Urine Oxycodone Screen Negative < 100 ng/mL [facility] Nucleated red blood cell per centageOrdered By: Juan Tpaia on 02-06-2025 Nucleated RBC/100 WBC (Bld) [Ratio] 0 % 0-5 [facility] Platelet countOrdered By: Luisito Tapia on 02-06-2025 Platelets (Bld) [#/Vol] 324 10*3/uL 150-450 [facility] Potassium measurement (mass/ volume)Ordered By: Juan Tapia on 02-06-2025 Potassium (Unsp spec) [Mass/Vol] 4.7 mmol/L 3.3-5.1 [facility] ,Serum,hCG Quali.on 02-06-2025 HCG, SERUM QUAL Negative Normal [facility] Comment on above: Performed By: #### L 501.2450, L700.6800, L100.0100, L500.4050, L505.5000, L501.9100 ####[facility] [address] [place], [place], [id number] Quantitative urine opiates m easurementOrdered By: Juan Tapia on 02-06-2025 Opiates Ql (U) Negative < 300 ng/mL [facility] RBC Auto (Bld) [#/Vol]Ordere d By: Juan Tapia on 02-06-2025 RBC (Bld) [#/Vol] 4.71 10*6/uL 4.2-5.4 [facility] Screening urine fentanyl cally surementOrdered By: Juan Tapia on 02-06-2025 fentaNYL Screen Ql (U) Negative [facility] Serum beta-hCG test, qualita tiveOrdered By: Juan Tapia on 02-06-2025 Beta HCG ( test) Ql Negative [facility] Serum creatinine measurement (mass/volume)Ordered By: Juan Tapia on 02-06-2025 Creatinine [Mass/Vol] 0.82 mg/dL 0.70-1.20 [facility] Serum globulin measurementOr dered By: Juan Tapia on 02-06-2025 Globulin (S) [Mass/Vol] 3.2 g/dL 2.2-4.2 [facility] Serum glucose measurement (m ass/volume)Ordered By: Juan Tapia on 02-06-2025 Glucose [Mass/Vol] 177 mg/dL High 70-99 [facility] Serum or plasma alanine peterson otransferase (ALT) measurementOrdered By: Juan Tapia on 02-06-2025 ALT [Catalytic activity/Vol] 23 U/L <35 [facility] Serum or plasma albumin prakash urement (mass/volume)Ordered By: Juan Tapia on 02-06-2025 Albumin [Mass/Vol] 4.7 g/dL 3.5-5.0 [facility] Serum or plasma albumin/glob ulin mass ratioOrdered By: Juan Tapia on 02-06-2025 Albumin/Globulin [Mass ratio] 1.5 {ratio} 0.9-2.4 [facility] Serum or plasma alkaline frandy sphatase measurementOrdered By: Juan Tapia on 02-06-2025 ALP [Catalytic activity/Vol] 65 U/L 35-104 [facility] Serum or plasma calcium prakash urement (mass/volume)Ordered By: Juan Tapia on 02-06-2025 Calcium [Mass/Vol] 11.2 mg/dL High 7.6-11.0 [facility] Serum or plasma ethanol prakash urement (mass/volume)Ordered By: Juan Tapia on 02-06-2025 Ethanol [Mass/Vol] mg/dL <10.1 [facility] Comment on above: Hemolysis Present, R esults may be affected.This test is for medical purposes only. The legal definition of intoxication varies according to local law. Serum or plasma urea nitroge n measurement (mass/volume)Ordered By: Juan Tapia on 02-06-2025 Urea nitrogen [Mass/Vol] 8 mg/dL 4-19 [facility] Sodium levelOrdered By: Juan Tapia on 02-06-2025 Sodium [Moles/Vol] 141 mmol/L 133-145 [facility] Total proteinOrdered By: Tessy Tapia on 02-06-2025 Protein [Mass/Vol] 7.9 g/dL 5.9-8.4 [facility] Urine Drug Screen (VISTA)on 02-06-2025 AMPHETAMINES Negative Normal <1000 ng/mL [facility] Comment on above: Performed By: #### L 501.2450, L700.6800, L100.0100, L500.4050, L505.5000, L501.9100 ####[facility] [address] [place], [address] BARBITIURATES Negative Normal < 200 ng/mL [facility] Comment on above: Performed By: #### L 501.2450, L700.6800, L100.0100, L500.4050, L505.5000, L501.9100 ####[facility] [address] [place], [address] BENZODIAZIPINE Negative Normal < 200 ng/mL [facility] Comment on above: Performed By: #### L 501.2450, L700.6800, L100.0100, L500.4050, L505.5000, L501.9100 ####[facility] [address] [place], [address] BUP Ur Drug Scr Negative Normal < 200 ng/mL [facility] Comment on above: Performed By: #### L 501.2450, L700.6800, L100.0100, L500.4050, L505.5000, L501.9100 ####[facility] [address] [place], [place], [id number] COCAINE Negative Normal < 300 ng/mL [facility] Comment on above: Performed By: #### L 501.2450, L700.6800, L100.0100, L500.4050, L505.5000, L501.9100 ####[facility] [address] [place], [address] Fentanyl Negative Normal [facility] Comment on above: Performed By: #### L 501.2450, L700.6800, L100.0100, L500.4050, L505.5000, L501.9100 ####[facility] [address] [place], [address] METHADONE Negative Normal < 300 ng/mL [facility] Comment on above: Performed By: #### L 501.2450, L700.6800, L100.0100, L500.4050, L505.5000, L501.9100 ####[facility] [address] [place], [place], [phone] OPIATES Negative Normal < 300 ng/mL [facility] Comment on above: Performed By: #### L 501.2450, L700.6800, L100.0100, L500.4050, L505.5000, L501.9100 ####[facility] [address] [place], [address] OXYCODONE Negative Normal < 100 ng/mL [facility] Comment on above: Performed By: #### L 501.2450, L700.6800, L100.0100, L500.4050, L505.5000, L501.9100 ####[facility] [address] [place], [place], [phone] PCP Negative Normal < 25 ng/mL [facility] Comment on above: Performed By: #### L 501.2450, L700.6800, L100.0100, L500.4050, L505.5000, L501.9100 ####[facility] [address] [place], [address] THC Positive Normal < 50 ng/mL [facility] Comment on above: Result Comment: If c onfirmation testing is needed, a separate order will be required to send out testing to the reference laboratory. Performed By: #### L 501.2450, L700.6800, L100.0100, L500.4050, L505.5000, L501.9100 ####[facility] [address] [place], [address] Urine benzodiazepine levelOr dered By: Juan Tapia on 02-06-2025 Benzodiazepines Ql (U) Negative < 200 ng/mL [facility] Urine cocaine levelOrdered B y: Juan Tapia on 02-06-2025 Cocaine Ql (U) Negative < 300 ng/mL [facility] Urine azrbf-1-ivnmlwcgutqyfo abinol (THC) measurementOrdered By: Juan Tapia on 02-06-2025 Cannabinoids Screen Ql (U) Positive < 50 ng/mL [facility] Comment on above: If confirmation test ing is needed, a separate order will be required to send out testing to the reference laboratory. Urine phencyclidine (PCP) de tectionOrdered By: Juan Tapia on 02-06-2025 Phencyclidine Ql (U) Negative < 25 ng/mL [facility] White blood cell (WBC) count Ordered By: Juan Tapia on 02-06-2025 WBC (Bld) [#/Vol] 14.8 10*3/uL High 4.4-11.0 [facility] ALBUMIN/CREATININE RATIO, UR INEon 11-09-2024 Albumin Unsp time DL <= 20 mg/L (U) [Mass/Time] 16.8 mg/L [facility] Albumin/Creatinine (U) [Mass ratio] 4 mg/g NINF - 30 mg/g [facility] Comment on above: Adult Male and [...] 476.6 mg/dL High 42.2 - 237.9 mg/dL [facility] Interpretation and review of laboratory results Abnormal [facility] ALBUMIN/CREATININE RATIO, UR INEon 11-08-2024 Albumin Unsp time DL <= 20 mg/L (U) [Mass/Time] 16.8 mg/L Normal [facility] Comment on above: Order Comment: Speci men Type: URINE SPECIMENOrdering Facility: [facility] Address: [address] [place] [address] Performed By: #### U ACR ####[facility] [id number] [address] Albumin/Creatinine (U) [Mass ratio] 4 mg/g Normal <30 [facility] Comment on above: Order Comment: Speci men Type: URINE SPECIMENOrdering Facility: [facility] Address: [address] [place] [address] Result Comment: Adul t Male and Female Nephrotic Criteria: <30 mg/g is considered normal to mildly increased 30-300 mg/g is considered moderately increased >300 mg/g is considered severely increased KDIGO. (2013). KDIGO 2012 Clinical Practice Guideline for the Evaluation and Management of Chronic Kidney Disease. Official Journal of the International Society of Nephrology, 3(1), 1-150. Performed By: #### U ACR ####[facility]ORYCLIA [id number] [address] STATES OF [facility] Creatinine (U) [Mass/Vol] 476.6 mg/dL High 42.2-237.9 [facility] Comment on above: Order Comment: Speci men Type: URINE SPECIMENOrdering Facility: [facility] Address: [address] [place] [address] Performed By: #### U ACR ####[facility]ATORYCLIA [id number] [address] OF [facility] CNOVon 11-08-2024 CNOV Office Visit (TJ LOYOLA) JOSHUA CHOUDHARY ([id number]) 1995 F Date Time Provider Department 11/08/24 1:40 PM LESA SOLER During your visit today, we recorded the following information about you: Temperature Pulse Blood pressure Weight 98.1 degrees 69/minute 112/70 88 kg Height 1.676 m Lesa Soler, TRINI.DE ICER KIT ASSEMBLER 11/27/2024 1:47 PM Signed Subjective Joshua Choudhary is a 29 year old female here today for diabetes follow-up. I reviewed past medical, surgical, social, and family histories today and updated chart. Allergies, chronic medications, and supplements were also reviewed. HPI Patient has type 2 diabetes, well controlled with diet She has changed her diet a lot Saw the grips Made a big difference Was able to develop hunger again and more frequently Still losing weight No more diarrhea Increased movement Going to college - [employer] Walking a lot more Doing EMDR therapy [...] EGD LAPAROSCOPY SURG CHOLECYSTECTOMY 10/04/2017 Cholecystectomy, lap Mckenzie PAST SURGICAL HISTORY OF Right 2014 rght [...] HENT: Head: Normocephalic and atraumatic. Mouth/Throat: Lips: [place]. Eyes: General: Lids are normal. Extraocular Movements: [...] 107 mmo (more content not included)... Normal [facility] CNPNon 11-08-2024 CNPN Telephone (GIULIANA) JOSHUA CHOUDHARY ([id number]) 1995 F Date Time Provider Department 11/08/24 [...] Encounter Status:Closed by GLORIA EVANS on 11/08/24 [facility] KULDEEPOVon 11-03-2024 CN Office Visit (UCWSTR ) JOSHUA CHOUDHARY ([id number]) 1995 F Date Time Provider Department 11/03/24 11:00 AM [facility] REDDY [facility] During your visit today, we recorded the following information about you: Temperature Pulse Respiration Blood pressure 99.6 degrees 77/minute 18/minute 105/71 Weight 90.7 kg Keely Reddy APRN.DE ICER KIT ASSEMBLER 11/03/2024 11:56 AM Signed This note was [...] history is provided by the patient. No full time staff interpreter was used. URI She complains of cough. [...] EGD LAPAROSCOPY SURG CHOLECYSTECTOMY 10/04/2017 Cholecystectomy, lap Mckenzie PAST SURGICAL HISTORY OF Right 2014 rght [...] murmur he (more content not included)... Normal [facility] COVID AND INFLUENZA A/B AND RSV PCR, ROUTINEon 11-03-2024 SARS-CoV-2 (COVID-19) RNA MURALI+probe Ql (Unsp spec) SARS-COV-2 (AGENT OF COVID-19) RNA: Not detected INFLUENZA A RNA: Detected INFLUENZA B RNA: Not detected RESPIRATORY SYNCYTIAL VIRUS (RSV) RNA: Not detected Abnormal [facility] Comment on above: Performed By: #### 5 8410-2 #### [facility] CLIA [id number] [address] [place] [address] [place] STREP A MOLECULAR (POC)on Procedural Control Valid [facility] Strep A (POCT) Negative Negative [facility] Basic Metabolic Profile (BMP )on 09-30-2024 BUN/CRE 8.9 RATIO Low 10-20 [facility] Comment on above: Performed By: #### L 700.8000, L500.2500 #### [facility] [address] [place], [address] CA,Total 11.1 mg/dL High 8.5-10.1 [facility] Comment on above: Performed By: #### L 700.8000, L500.2500 #### [facility] [address] [place], [address] Chloride [Moles/Vol] 109 mmol/L High 98-107 [facility] Comment on above: Performed By: #### L 700.8000, L500.2500 #### [facility] [address] [place], [address] CO2 [Moles/Vol] 22.0 mmol/L Normal 21.0-32.0 [facility] Comment on above: Performed By: #### L 700.8000, L500.2500 #### [facility] [address] [place], [address] Creatinine [Mass/Vol] 1.01 mg/dL Normal 0.55-1.02 [facility] Comment on above: Result Comment: The validity of the calculated GFR GFRAA in patients over 70 years has not been determined. Clinical correlation is essential. Performed By: #### L 700.8000, L500.2500 #### [facility] [address] [place], [address] ECRCL 91.22 ml/min Normal [facility] Comment on above: Performed By: #### L 700.8000, L500.2500 #### [facility] [address] [place], [address] EST GFR - AA 82 mL/min Normal >60 [facility] Comment on above: Result Comment: Afri can Dominican GFR Calc Performed By: #### L 700.8000, L500.2500 #### [facility] [address] [place], [address] GAP 10 Normal 5-15 [facility] Comment on above: Performed By: #### L 700.8000, L500.2500 #### [facility] [address] [place], [address] GFR/1.73 sq M.predicted among non-blacks MDRD (S/P/Bld) [Vol rate/Area] 68 mL/min/{1.73_m2} Normal >60 [facility] Comment on above: Result Comment: Non- GFR Calc Performed By: #### L 700.8000, L500.2500 #### [facility] [address] [place], [address] Glucose [Mass/Vol] 167 mg/dL High 74-106 [facility] Comment on above: Result Comment: Fast ing Glucose result greater than or equal to 126 mg/dL suggests DIABETES MELLITUS per A.D.A. criteria. Performed By: #### L 700.8000, L500.2500 #### [facility] [address] [place], [address] Potassium [Moles/Vol] 3.7 mmol/L Normal 3.5-5.1 [facility] Comment on above: Result Comment: Slig ht Hemolysis, Result may be falsely increased. Performed By: #### L 700.8000, L500.2500 #### [facility] [address] [place], [address] Sodium [Moles/Vol] 140 mmol/L Normal 136-145 [facility] Comment on above: Performed By: #### L 700.8000, L500.2500 #### [facility] [address] [place], [address] Urea nitrogen [Mass/Vol] 9 mg/dL Normal 7-18 [facility] Comment on above: Performed By: #### L 700.8000, L500.2500 #### [facility] [address] [place], [address] Emergency Department Summary on 09-30-2024 Emergency Department Summary [facility] Medical Records Department [address] [place] [address] Emergency Department Summary 09/30/24 MR#: [id number] Acct: [id number] Name: JOSHUA CHOUDHARY Rep #: [id number] : 1995 29 From: Christos Esparza MD PCP: Lesa Trill, REGIONAL ACCOUNT DIRECTOR-C Status:REG ER Location: ED HPI History of [...] Dr. Mendez. 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 Normal [facility] hCG Titer Quant., Serumon HCG QUANT. < 1 Normal 1-3 [facility] Comment on above: Result Comment: hCG levels with Gestational Age Gestational Age hCG mIU/mL (IU/L) 0.2 - 1 week 5 - 50 1-2 weeks 50 - 500 2-3 weeks 100 - 5000 3-4 weeks 500 - 35636 4-5 weeks 1000 - 49276 5-6 weeks 76932 - 100,000 6-8 weeks 40312 - 200,000 2-3 months 44658 - 100,000 Performed By: #### L 700.8000, L500.2500 #### [facility] [address] [place], [address] CNPZhane 09-19-2024 CONNOR Telephone (AGFAMPLE) JOSHUA CHOUDHARY ([id number]) 1995 F Date Time Provider Department 09/19/24 [...] Patient may choose to take fish oil uijz-aiz-gakenoy. Recheck cholesterol in 6 months. 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 As of Date: 09/19/2024 (No Known Allergies) Date Reviewed: 09/11/2024 Reviewed by: Staci Givens RD - Fully Assessed Reason for Visit: Results [95] Cmt: labs Problem List As Of Date 09/19/2024 Noted Resolved Abdominal pain, epigastric [R10.13] 05/16/2017 Gallstones [K80.20] 08/28/2017 RUQ pain [R10.11] 09/28/2017 Type 2 diabetes mellitus without complication, *09/03/2024 Encounter Status:Closed by MADELYN DENT on 09/20/24 Normal [facility] CBC panel Auto (Bld)on 09-11 Erythrocyte distribution width (RBC) [Ratio] 13.8 % 11.5 - 15.0 % [facility] Hematocrit (Bld) [Volume fraction] 44.9 % 36.0 - 46.0 % [facility] Hemoglobin (Bld) [Mass/Vol] 14.8 g/dL 11.5 - 15.5 g/dL [facility] Interpretation and review of laboratory results Abnormal [facility] MCH (RBC) [Entitic mass] 29.4 pg 26.0 - 34.0 pg [facility] MCHC (RBC) [Mass/Vol] 33.0 g/dL 30.5 - 36.0 g/dL [facility] MCV (RBC) [Entitic vol] 89.1 fL 80.0 - 100.0 fL [facility] Nucleated RBC (Bld) [#/Vol] NINF [facility] Platelet mean volume (Bld) [Entitic vol] 11.8 fL 9.0 - 12.7 fL [facility] Platelets (Bld) [#/Vol] 243 10*3/uL [facility] RBC (Bld) [#/Vol] 5.04 10*6/uL 3.90 - 5.20 m/uL [facility] WBC (Bld) [#/Vol] 11.48 10*3/uL High [facility] Erythrocyte distribution width (RBC) [Ratio] 13.8 % Normal 11.5-15.0 [facility] Comment on above: Order Comment: Speci men Type: BLOOD SPECIMEN [facility] Address: [address] [place] [address] Performed By: #### 5 8410-2 #### [facility] CLIA [id number] [address] [place] [address] [place] Hematocrit (Bld) [Volume fraction] 44.9 % Normal 36.0-46.0 [facility] Comment on above: Order Comment: Speci men Type: BLOOD SPECIMEN [facility] Address: [address] [place] [address] Performed By: #### 5 8410-2 #### [facility] CLIA [id number] [address] [place] [address] [place] Hemoglobin (Bld) [Mass/Vol] 14.8 g/dL Normal 11.5-15.5 [facility] Comment on above: Order Comment: Speci men Type: BLOOD SPECIMEN [facility] Address: [address] [place] [address] Performed By: #### 5 8410-2 #### [facility] CLIA [id number] [address] [place] [address] [place] MCH (RBC) [Entitic mass] 29.4 pg Normal 26.0-34.0 [facility] Comment on above: Order Comment: Speci men Type: BLOOD SPECIMEN [facility] Address: [address] [place] [address] Performed By: #### 5 8410-2 #### [facility] CLIA [id number] [address] [place] [address] [place] MCHC (RBC) [Mass/Vol] 33.0 g/dL Normal 30.5-36.0 [facility] Comment on above: Order Comment: Speci men Type: BLOOD SPECIMEN [facility] Address: [address] [place] [address] Performed By: #### 5 8410-2 #### [facility] CLIA [id number] [address] [place] [address] [place] MCV (RBC) [Entitic vol] 89.1 fL Normal 80.0-100.0 [facility] Comment on above: Order Comment: Speci men Type: BLOOD SPECIMEN [facility] Address: [address] [place] [address] Performed By: #### 5 8410-2 #### [facility] CLIA [id number] [address] [place] [address] [place] Nucleated RBC (Bld) [#/Vol] 10*3/uL Normal <0.01 [facility] Comment on above: Order Comment: Speci men Type: BLOOD SPECIMEN [facility] Address: [address] [place] [address] Performed By: #### 5 8410-2 #### [facility] CLIA [id number] [address] [place] [address] [place] Platelet mean volume (Bld) [Entitic vol] 11.8 fL Normal 9.0-12.7 [facility] Comment on above: Order Comment: Speci men Type: BLOOD SPECIMEN [facility] Address: [address] [place] [address] Performed By: #### 5 8410-2 #### [facility] CLIA [id number] [address] [place] [address] [place] Platelets (Bld) [#/Vol] 243 10*3/uL Normal 150-400 [facility] Comment on above: Order Comment: Speci men Type: BLOOD SPECIMEN [facility] Address: [address] [place] [address] Performed By: #### 5 8410-2 #### [facility] CLIA [id number] [address] [place] [address] [place] RBC (Bld) [#/Vol] 5.04 10*6/uL Normal 3.90-5.20 [facility] Comment on above: Order Comment: Speci men Type: BLOOD SPECIMEN [facility] Address: [address] [place] [address] Performed By: #### 5 8410-2 #### [facility] CLIA [id number] [address] [place] [address] [place] WBC (Bld) [#/Vol] 11.48 10*3/uL High 3.70-11.00 [facility] Comment on above: Order Comment: Speci men Type: BLOOD SPECIMEN [facility] Address: [address] [place] [address] Performed By: #### 5 8410-2 #### [facility] CLIA [id number] [address] [place] [address] [place] Comprehensive metabolic 2000 panelon 09-11-2024 Albumin [Mass/Vol] 4.5 g/dL 3.9 - 4.9 g/dL [facility] ALP [Catalytic activity/Vol] 62 U/L 34 - 123 U/L [facility] ALT [Catalytic activity/Vol] 26 U/L 7 - 38 U/L [facility] Anion gap [Moles/Vol] 11 mmol/L 8 - 15 mmol/L [facility] AST [Catalytic activity/Vol] 24 U/L 13 - 35 U/L [facility] Bilirubin [Mass/Vol] 0.3 mg/dL 0.2 - 1 .3 mg/dL [facility] Calcium [Mass/Vol] 10.5 mg/dL High 8.5 - 10. 2 mg/dL [facility] Chloride [Moles/Vol] 105 mmol/L 98 - 10 7 mmol/L [facility] CO2 [Moles/Vol] 26 mmol/L 22 - 30 mmol/L [facility] Creatinine [Mass/Vol] 0.88 mg/dL 0.58 - 0.96 mg/dL [facility] GFR/1.73 sq M.predicted among non-blacks MDRD (S/P/Bld) [Vol rate/Area] 90 mL/min/{1.73_m2} - PINF [facility] Comment on above: Estimated Glomerular Filtration [...] [Mass/Vol] 86 mg/dL 74 - 99 mg/dL [facility] Comment on above: The [place] Diabete s Association (ADA) provides guidance for [...] Standards of Medical Care in Diabetes 2016, [place] Diabetes Association. Diabetes Care. 2016.39(Suppl 1). Potassium [Moles/Vol] 4.2 mmol/L 3.7 - 5.1 mmol/L [facility] Protein [Mass/Vol] 7.2 g/dL 6.3 - 8.0 g/dL [facility] Sodium [Moles/Vol] 142 mmol/L 136 - 144 mmol/L [facility] Urea nitrogen [Mass/Vol] 5 mg/dL Low 7 - 21 mg/dL [facility] Albumin [Mass/Vol] 4.5 g/dL Normal 3.9-4.9 [facility] Comment on above: Order Comment: Speci men Type: BLOOD SPECIMEN [facility] Address: [address] [place] [address] Performed By: #### 2 4331-1, 65382-2, 3040-3, 3016-3 #### [facility] CLIA [id number] [address] [place] [address] [place] ALP [Catalytic activity/Vol] 62 U/L Normal 34-123 [facility] Comment on above: Order Comment: Speci men Type: BLOOD SPECIMEN [facility] Address: [address] [place] [address] Performed By: #### 2 4331-1, 93084-0, 3040-3, 3016-3 #### [facility] CLIA [id number] [address] [place] [address] [place] ALT [Catalytic activity/Vol] 26 U/L Normal 7-38 [facility] Comment on above: Order Comment: Speci men Type: BLOOD SPECIMEN [facility] Address: [address] [place] [address] Performed By: #### 2 4331-1, 31944-1, 0-3, 3016-3 #### [facility] CLIA [id number] [address] [place] [address] [place] Anion gap [Moles/Vol] 11 mmol/L Normal 8-15 [facility] Comment on above: Order Comment: Speci men Type: BLOOD SPECIMEN [facility] Address: [address] [place] [address] Performed By: #### 2 4331-1, 21226-4, 0-3, 3016-3 #### [facility] CLIA [id number] [address] [place] [address] [place] AST [Catalytic activity/Vol] 24 U/L Normal 13-35 [facility] Comment on above: Order Comment: Speci men Type: BLOOD SPECIMEN [facility] Address: [address] [place] [address] Performed By: #### 2 4331-1, 69960-6, 3040-3, 3016-3 #### [facility] CLIA [id number] [address] [place], [place] [address] [place] Bilirubin [Mass/Vol] 0.3 mg/dL Normal 0.2-1.3 [facility] Comment on above: Order Comment: Speci men Type: BLOOD SPECIMEN [facility] Address: [address] [place], [place] [address] Performed By: #### 2 4331-1, 51417-9, 3040-3, 3016-3 #### [facility] CLIA [id number] [address] [place], [place] [address] [place] Calcium [Mass/Vol] 10.5 mg/dL High 8.5-10.2 [facility] Comment on above: Order Comment: Speci men Type: BLOOD SPECIMEN [facility] Address: [address] [place] [address] Performed By: #### 2 4331-1, 29344-9, 0-3, 6-3 #### [facility] CLIA [id number] [address] [place] [address] [place] Chloride [Moles/Vol] 105 mmol/L Normal 98-107 [facility] Comment on above: Order Comment: Speci men Type: BLOOD SPECIMEN [facility] Address: [address] [place] [address] Performed By: #### 2 4331-1, 50059-3, 0-3, 6-3 #### [facility] CLIA [id number] [address] [place], [place] [address] [place] CO2 [Moles/Vol] 26 mmol/L Normal 22-30 [facility] Comment on above: Order Comment: Speci men Type: BLOOD SPECIMEN [facility] Address: [address] [place], [place] [address] Performed By: #### 2 4331-1, 34426-0, 3040-3, 3016-3 #### [facility] CLIA [id number] [address] [place], [place] [address] [place] Creatinine [Mass/Vol] 0.88 mg/dL Normal 0.58-0.96 [facility] Comment on above: Order Comment: Speci men Type: BLOOD SPECIMEN [facility] Address: [address] [place] [address] Performed By: #### 2 4331-1, 19776-5, 3040-3, 3016-3 #### [facility] CLIA [id number] [address] [place] [address] [place] Creatinine and Glomerular filtration rate.predicted panel (S/P/Bld) 90 mL/min/1.73m??? Normal >=60 [facility] Comment on above: Order Comment: Yelena collins Type: BLOOD SPECIMEN [facility] Address: [address] [place] [address] Result Comment: Ely mated Glomerular Filtration Rate [...] actual GFR. Performed By: #### 2 4331-1, 03658-2, 3040-3, 3016-3 #### [facility] CLIA [id number] [address] [place] [address] [place] Glucose [Mass/Vol] 86 mg/dL Normal 74-99 [facility] Comment on above: Order Comment: Yelena collnis Type: BLOOD SPECIMEN [facility] Address: [address] [place] [address] Result Comment: The [place] Diabetes Association (ADA) provides guidance for cutoff [...] Standards of Medical Care in Diabetes 2016, [place] Diabetes Association. Diabetes Care. 2016.39(Suppl 1). Performed By: #### 2 4331-1, 31979-2, 0-3, 6-3 #### [facility] CLIA [id number] [address] [place] [address] [place] Potassium [Moles/Vol] 4.2 mmol/L Normal 3.7-5.1 [facility] Comment on above: Order Comment: Speci men Type: BLOOD SPECIMEN [facility] Address: [address] [place] [address] Performed By: #### 2 4331-1, 91536-9, 0-3, 3015-3 #### [facility] CLIA [id number] [address] [place] [address] [place] Protein [Mass/Vol] 7.2 g/dL Normal 6.3-8.0 [facility] Comment on above: Order Comment: Speci men Type: BLOOD SPECIMEN [facility] Address: [address] [place] [address] Performed By: #### 2 4331-1, 53797-7, 0-3, 3015-3 #### [facility] CLIA [id number] [address] [place], [place] [address] [place] Sodium [Moles/Vol] 142 mmol/L Normal 136-144 [facility] Comment on above: Order Comment: Speci men Type: BLOOD SPECIMEN [facility] Address: [address] [place] [address] Performed By: #### 2 4331-1, 70962-8, 0-3, 6-3 #### [facility] CLIA [id number] [address] [place] [address] [place] Urea nitrogen [Mass/Vol] 5 mg/dL Low 7-21 [facility] Comment on above: Order Comment: Speci men Type: BLOOD SPECIMEN [facility] Address: [address] [place] [address] Performed By: #### 2 4331-1, 57624-3, 3040-3, 3016-3 #### [facility] CLIA [id number] [address] [place] [address] [place] HbA1c (Bld)on 09-11-2024 Average glucose Estimated from glycated hemoglobin (Bld) [Mass/Vol] 111 mg/dL [facility] Comment on above: eAG: (Estimated aver age glucose) is a calculated value from HgbA1c and is treasury representative of the average blood glucose level in the last 2-3 month period. HbA1c (Bld) [Mass fraction] 5.5 % 4.3 - 5.6 % [facility] Comment on above: [place] Diabetes As sociation guidelines indicate that patients with HgbA1c in the range 5.7-6.4% are at increased risk for development of diabetes, and intervention by lifestyle modification may be beneficial. HgbA1c greater or equal to 6.5% is considered diagnostic of diabetes. [facility] Average glucose Estimated from glycated hemoglobin (Bld) [Mass/Vol] 111 mg/dL Normal [facility] Comment on above: Order Comment: Yelena collins Type: BLOOD SPECIMEN Ordering Facility: [facility] Address: [address] [place] [address] Result Comment: eAG: (Estimated average glucose) is a calculated value from HgbA1c and is treasury representative of the average blood glucose level in the last 2-3 month period. Performed By: #### 5 5454-3 #### [facility] CLIA [id number] [address] [place] [address] [place] HbA1c (Bld) [Mass fraction] 5.5 % Normal 4.3-5.6 [facility] Comment on above: Order Comment: Yelena collins Type: BLOOD SPECIMEN Ordering Facility: [facility] Address: [address] [place] [address] Result Comment: Amer [place] Diabetes Association guidelines indicate that patients with HgbA1c in the range 5.7-6.4% are at increased risk for development of diabetes, and intervention by lifestyle modification may be beneficial. HgbA1c greater or equal to 6.5% is considered diagnostic of diabetes. Performed By: #### 5 5454-3 #### [facility] CLIA [id number] [address] [place] [address] [place] LIPASEon 09-11-2024 Lipase [Catalytic activity/Vol] 33 U/L 16 - 61 U/L [facility] Lipase SerPl-cCncon 09-11-20 24 Lipase [Catalytic activity/Vol] 33 U/L Normal 16-61 [facility] Comment on above: Order Comment: Speci men Type: BLOOD SPECIMEN Ordering Facility: [facility] Address: [address] [place] [address] Performed By: #### 2 4331-1, 01823-9, 3040-3, 3016-3 #### [facility] CLIA [id number] [address] [place] [address] [place] Lipase [Catalytic activity/V ol]on 09-11-2024 Interpretation and review of laboratory results Normal [facility] Lipid 1996 panelon 4 Cholesterol [Mass/Vol] 208 mg/dL High NINF - 200 mg/dL [facility] Comment on above: <200 mg/dL, Desirabl e 200-239 mg/dL, Borderline high >239 mg/dL, High Cholesterol in HDL [Mass/Vol] 27 mg/dL Low 39 - PINF mg/dL [facility] Comment on above: 40-59 mg/dL, Accepta ble >59 mg/dL, High: Negative risk factor for coronary heart disease <40 mg/dL, Low: Positive risk factor for coronary heart disease Cholesterol in LDL [Mass/Vol] 120 mg/dL High NINF - 100 mg/dL [facility] Comment on above: <100 mg/dL, Optimal 100-129 mg/dL, Near optimal/above optimal 130-159 mg/dL, Borderline high 160-189 mg/dL, High >189 mg/dL, Very high Secondary prevention optimal LDL Cholesterol levels are recommended to be < 70 mg/dL Cholesterol in LDL/Cholesterol in HDL [Mass ratio] 4.44 {ratio} High NINF - 2.54 [facility] Comment on above: Reference: 1. National Cholesterol Education Program ATP III Guideline At-A-Glance Quick Desk Reference: National Heart, Lung, and Blood [place]. National Institutes of Health. 2001: NIH Publication No. 01-3305. 2. An International Atherosclerosis Society position paper: global recommendations for the management of dyslipidemia: executive summary, Atherosclerosis. 2014: 232(2):410-413. Cholesterol in VLDL [Mass/Vol] 61 mg/dL High NINF - 30 mg/dL [facility] Cholesterol non HDL [Mass/Vol] 181 mg/dL High NINF - 130 mg/dL [facility] Comment on above: <130 mg/dL, Optimal 130-159 mg/dL, Near optimal/above optimal 160-189 mg/dL, Borderline high 190-219 mg/dL, High >219 mg/dL, Very high Secondary prevention optimal non HDL Cholesterol levels are recommended to be <100 mg/dL Cholesterol.total/Cho lesterol in HDL [Mass ratio] 7.70 {ratio} High NINF - 5.10 [facility] Fasting Time 12 hrs [facility] Triglyceride [Mass/Vol] 307 mg/dL High NINF - 150 mg/dL [facility] Comment on above: <150 mg/dL, Normal 150-199 mg/dL, Borderline high 200-499 mg/dL, High >499 mg/dL, Very high Cholesterol [Mass/Vol] 208 mg/dL High <200 [facility] Comment on above: Order Comment: Yelena collins Type: BLOOD SPECIMEN Ordering Facility: [facility] Address: [address] [place] [address] Result Comment: <200 mg/dL, Desirable 200-239 mg/dL, Borderline high >239 mg/dL, High Performed By: #### 2 4331-1, 87048-4, 3040-3, 3016-3 #### [facility] CLIA [id number] [address] [place] [address] [place] Cholesterol in HDL [Mass/Vol] 27 mg/dL Low >39 [facility] Comment on above: Order Comment: Yelena collins Type: BLOOD SPECIMEN Ordering Facility: [facility] Address: [address] [place] [address] Result Comment: 40-5 9 mg/dL, Acceptable >59 mg/dL, High: Negative risk factor for coronary heart disease <40 mg/dL, Low: Positive risk factor for coronary heart disease Performed By: #### 2 4331-1, 70959-2, 3040-3, 3016-3 #### [facility] CLIA [id number] [address] [facility] [place] [address] [place] Cholesterol in LDL [Mass/Vol] 120 mg/dL High <100 [facility] Comment on above: Order Comment: Speci men Type: BLOOD SPECIMEN Ordering Facility: [facility] Address: [address] [place] [address] Result Comment: <100 mg/dL, Optimal 100-129 mg/dL, Near optimal/above optimal 130-159 mg/dL, Borderline high 160-189 mg/dL, High >189 mg/dL, Very high Secondary prevention optimal LDL Cholesterol levels are recommended to be < 70 mg/dL Performed By: #### 2 4331-1, 02224-1, 0-3, 6-3 #### [facility] CLIA [id number] [address] [place] [address] [place] Cholesterol in LDL/Cholesterol in HDL [Mass ratio] 4.44 {ratio} High <2.54 [facility] Comment on above: Order Comment: Speci men Type: BLOOD SPECIMEN Ordering Facility: [facility] Address: [address] [place] [address] Result Comment: Refe rence: 1. National Cholesterol Education Program ATP III Guideline At-A-Glance Quick Desk Reference: National Heart, Lung, and Blood [place]. National Institutes of Health. 2001: NIH Publication No. 01-3305. 2. An International Atherosclerosis Society position paper: global recommendations for the management of dyslipidemia: executive summary, Atherosclerosis. 2014: 232(2):410-413. Performed By: #### 2 4331-1, 57306-6, 3040-3, 6-3 #### [facility] CLIA [id number] [address] [place], [place] [address] [place] [address] [place] Cholesterol in VLDL [Mass/Vol] 61 mg/dL High <30 [facility] Comment on above: Order Comment: Speci men Type: BLOOD SPECIMEN Ordering Facility: [facility] Address: [address] [place] [address] Performed By: #### 2 4331-1, 79138-7, 3040-3, 3016-3 #### [facility] CLIA [id number] [address] [place] [address] [place] Cholesterol non HDL [Mass/Vol] 181 mg/dL High <130 [facility] Comment on above: Order Comment: Speci men Type: BLOOD SPECIMEN Ordering Facility: [facility] Address: [address] [place] [address] Result Comment: <130 mg/dL, Optimal 130-159 mg/dL, Near optimal/above optimal 160-189 mg/dL, Borderline high 190-219 mg/dL, High >219 mg/dL, Very high Secondary prevention optimal non HDL Cholesterol levels are recommended to be <100 mg/dL Performed By: #### 2 4331-1, 82985-1, 3040-3, 3016-3 #### [facility] CLIA [id number] [address] [place] [address] [place] Cholesterol.total/Cho lesterol in HDL [Mass ratio] 7.70 {ratio} High <5.10 [facility] Comment on above: Order Comment: Speci men Type: BLOOD SPECIMEN Ordering Facility: [facility] Address: [address] [place] [address] Performed By: #### 2 4331-1, 00838-9, 3040-3, 3016-3 #### [facility] CLIA [id number] [address] [place] [address] [place] FASTING TIME [address] [facility] Comment on above: Order Comment: Speci men Type: BLOOD SPECIMEN Ordering Facility: [facility] Address: [address] [place] [address] Performed By: #### 2 4331-1, 95120-1, 3040-3, 3016-3 #### [facility] CLIA [id number] [address] [place] [address] [place] Triglyceride [Mass/Vol] 307 mg/dL High <150 [facility] Comment on above: Order Comment: Speci men Type: BLOOD SPECIMEN Ordering Facility: [facility] Address: [address] [place] [address] Result Comment: <150 mg/dL, Normal 150-199 mg/dL, Borderline high 200-499 mg/dL, High >499 mg/dL, Very high Performed By: #### 2 4331-1, 41541-7, 3040-3, 3016-3 #### [facility] CLIA [id number] [address] [place] [address] [place] No Panel Informationon 09-11 Interpretation and review of laboratory results Abnormal [facility] THYROID STIMULATING HORMONEo n 09-11-2024 TSH Qn 0.917 m[IU]/L [facility] Comment on above: If the patient [...] Molina, et al. 2017 Guidelines of the [place] Thyroid Association for the Diagnosis and Management of Thyroid Disease during and the . Thyroid, 2017:27:3:315-389. TSH Qnon 09-11-2024 Interpretation and review of laboratory results Normal [facility] TSH SerPl-aCncon 09-11-2024 TSH Qn 0.917 m[IU]/L Normal 0.270-4.[address] [facility] Comment on above: Order Comment: Speci men Type: BLOOD SPECIMEN Ordering Facility: [facility] Address: [address] [place] [address] Result Comment: If t he patient is [...] Molina, et al. 2017 Guidelines of the [place] Thyroid Association for the Diagnosis and Management of Thyroid Disease during and the . Thyroid, 2017:27:3:315-389. Performed By: #### 2 4331-1, 96507-3, 3040-3, 3016-3 #### [facility] CLIA [id number] [address] [place] [address] OF [facility] CNOVon 09-03-2024 CNOV Office Visit (TJ LOYOLA) KENRICKJOSHUA ([id number]) 1995 F Date Time Provider Department 09/03/24 1:20 PM LESA SOLER During your visit today, we recorded the following information about you: Temperature Pulse Blood pressure Weight 98.1 degrees 78/minute 108/62 92.1 kg Height 1.676 m Lesa Soler, TRINI.DE ICER KIT ASSEMBLER 09/22/2024 12:58 AM Signed Subjective Joshua Choudhary is a 29 year old female here today for establish care. I reviewed past medical, surgical, social, and family histories today and updated chart. Allergies, chronic medications, and supplements were also reviewed. 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 - Dr Monique Pap test completed Looking in to fertility treatment for 6 years - tried for good 2 years, still not using BC Right fallopian tube removed age 17 Depression - she is seeing counselor and psychiatrist, Dr Marybel Ortiz 419 Counselor Joshua Zazueta at [facility], will be starting EDMR Hx childhood trauma CPSD responses Having official testing for ADHD Panic disorder Has been focusing on mental health this whole past year Hasn't been able to work this past year She was hospitalized - [facility] x 1 week Just started new medication 1 week ago - can't recall name of it No family history of thyroid cancer No hx pancreatitis Does not drink alcohol PAST MEDICAL HISTORY Diagnosis Date Cholelithiases PAST SURGICAL HISTORY Procedure Laterality Date COLONOSCOPY FLX DX W/COLLJ SPEC WHEN PFRMD 07/03/2018 Colonoscopy ESOPHAGOGASTRODUODENOSCOPY TRANSORAL DIAGNOSTIC 07/03/2018 EGD LAPAROSCOPY SURG CHOLECYSTECTOMY 10/04/2017 Cholecystectomy, lap Mckenzie PAST SURGICAL HISTORY OF Right 2014 rght [...] Skin: Negative (more content not included)... Normal [facility] CNOVon 08-28-2024 CNOV Office Visit (OBGYST ) JOSHUA CHOUDHARY ([id number]) 1995 F Date Time Provider Department 08/28/24 [...] EGD LAPAROSCOPY SURG CHOLECYSTECTOMY 10/04/2017 Cholecystectomy, lap Mckenzie PAST SURGICAL HISTORY OF Right 2014 rght [...] skin retraction. Allergies and current medication updated:Yes Routeman present EXAM: BP 108/71 Pulse 72 Ht 5' 6 (1.68m) Wt 208 lb (94.3kg) LMP 06/28/2024 BMI 33.59 kg/(m2). GENERAL: In no apparent distress HEENT: Normocephalic, BREAST: soft, non-tender, symmetric, no dominant mass, normal nipple-areolar complex, no lymphadenopathy, and no nipple discharge CHEST: Normal inspiratory effort ABDOMEN: soft, non-tender, and no masses PELVIC: external genitalia normal, normal Bartholin's glands, urethra, Thayne's glands, no vulvar lesions, no cervical lesions, [...] discussed with the Patient or Patient's Authorized Electronic Scale Tester. As applicable, any other physician, advance practice provider, medical student, or other health professional student that will be observing or involved in the sensitive examination for educational or training purposes was discussed with the Patient or Authorized Electronic Scale Tester. The Patient or Authorized Electronic Scale Tester has agreed to proceed with the sensitive [...] [E28.2] Primary female infertility [N97.9] Order(s):PAP TEST [BVF5644] Order #: [id number]. #:[id number] CONSULT TO INFERTILITY CLINIC [[id number]] Order #: [id number]: 1 FUTURE Prescriptions as of 08/28/2024 - [...] for Encounter Date Provider Department Center 08/28/2024 [id number] MONIQUE [facility] Shaggy Apple (more content not included)... Normal [facility] HIGH RISK HUMAN PAPILLOMA WEN (HPV), PCR FOR DETECTION AND GENOTYPINGon 08-28-2024 HPV 16 Ag Ql (Unsp spec) Not detected Normal Not detected [facility] Comment on above: Order Comment: Speci men Type: BLOOD SPECIMEN [facility] Facility: [facility] Address: [address] [place] [address] Performed By: #### 5 8410-2 #### [facility] CLIA [id number] [address] [place] [address] [place] HPV 18 Ag Ql (Unsp spec) Not detected Normal Not detected [facility] Comment on above: Order Comment: Speci men Type: BLOOD SPECIMEN Ordering Facility: [facility] Address: [address] [place] [address] Performed By: #### 5 8410-2 #### [facility] CLIA [id number] [address] [place] [address] [place] HPV 31+33+35+39+45+51+52+ 56+58+59+66+68 DNA MURALI+probe Ql (Cvx) Not detected Normal Not detected [facility] Comment on above: Order Comment: Speci men Type: BLOOD SPECIMEN Ordering Facility: [facility] Address: [address] [place] [address] Result Comment: High Risk HPV Other Type includes HPV types 31, 33, 35, 39, 45, 51, 52, 56, 58, 59, 66 and 68. Performed By: #### 5 8410-2 #### [facility] CLIA [id number] [address] [place] [id number] [place] PAP TESTon 08-28-2024 ADEQUACY Satisfactory for interpretation. Normal [facility] Comment on above: Order Comment: Speci men Type: FLUID SPECIMEN Ordering Facility: [facility] Address: [address] [place] [address] Performed By: #### L [id number] #### [facility] CLIA [id number] [address] [place] [address] [place] [facility] CLIA [id number] [address] [place] [address] [place] CASE REPORT Normal [facility] Comment on above: Order Comment: Speci men Type: FLUID SPECIMEN Ordering Facility: [facility] Address: [address] [place] [address] Result Comment: Gyne cologic Cytology Report Case: [id number] Authorizing Provider: Mario Monique MD Collected: 08/28/2024 10:22 AM Ordering Location: OB/Gynecology Received: 08/28/2024 12:10 PM First Screen: Keisha, Keely, CT, ASCP Specimen: Pap Test, ThinPrep, Cervix Performed By: #### L [id number] #### [facility] CLIA [id number] [address] [place] [address] [place] [facility] CLIA [id number] [address] [place] [address] [place] CLINICAL HISTORY, CYTOLOGY, FILLER SHREDDER HELPER Routine Exam Normal [facility] Comment on above: Order Comment: Speci men Type: FLUID SPECIMEN Ordering Facility: [facility] Address: [address] [place] [address] Performed By: #### L [id number] #### [facility] CLIA [id number] [address] [place], [place] [id number] [place] [facility] CLIA [id number] [address] [place] [address] [place] FINAL PERFORMING LAB Normal [facility] Comment on above: Order Comment: Speci men Type: FLUID SPECIMEN Ordering Facility: [facility] Address: [address] [place], [place] [address] Result Comment: Tech nical component, child welfare assistant screening performed at [facility], [address] [place] [address] CLIA# [id number] Diagnostic interpretation performed at [facility], [address] [place] [address] CLIA# [id number] Quirk Sander: Wu Scott M.D. Performed By: #### L [id number] #### [facility] CLIA [id number] [address] [place] [address] [place] [facility] CLIA [id number] [address] [place] [address] [place] INTERPRETATION, CYTOLOGY, FILLER SHREDDER HELPER Normal [facility] Comment on above: Order Comment: Speci men Type: FLUID SPECIMEN Ordering Facility: [facility] Address: [address] [place] [address] Result Comment: Nega tive for intraepithelial lesion or malignancy. Performed By: #### L [id number] #### [facility] CLIA [id number] [address] [place] [address] [place] [facility] CLIA [id number] [address] [place], [place] [address] [place] LMP 06/28/[address] [facility] Comment on above: Order Comment: Speci men Type: FLUID SPECIMEN Ordering Facility: [facility] Address: [address] [place] [address] Performed By: #### L [id number] #### [facility] CLIA [id number] [address] [place], [place] [id number] [place] [facility] CLIA [id number] [address] [place], [place] [id number] [place] PAP DISCLAIMER COMMENT The Pap Smear is a screening test for cervical cancer. False negative results occur with all screening tests, emphasizing the need for rescreening at recommended intervals, and clinical correlation. Normal [facility] Comment on above: Order Comment: Speci men Type: FLUID SPECIMEN Ordering Facility: [facility] Address: [address] [place] [address] Performed By: #### L [id number] #### [facility] CLIA [id number] [address] [place] [address] STATES [facility] CLIA [id number] [address] [place] [address] [place] PAP FIELD MARKETING DIRECTOR COMMENT This specimen has be en analyzed by the ThinPrep Imaging System, an automated imaging and review system, which assists the laboratory in evaluating cells on ThinPrep Pap tests. Following automated imaging, selected zelaya from every slide are reviewed by a child welfare assistant. Normal [facility] Comment on above: Order Comment: Speci men Type: FLUID SPECIMEN Ordering Facility: [facility] Address: [address] [place] [address] Performed By: #### L [id number] #### [facility] CLIA [id number] [address] [place] [address] LAB CLIA [id number] [address] [place] [address] [place] Abdomen/Pelvis W IV Cont ONL Yon 07-15-2024 Abdomen/Pelvis W IV Cont ONLY [facility] Imaging Services [address] [place], [place] [address] Abdomen/Pelvis W IV Cont ONLY MR#: [id number] Acct: [id number] Name: JOSHUA CHOUDHARY Rep #: [id number] : 1995 F 29 From: Braden Golden MD PCP: Care Physician,No Primary Status: REG ER Study: Abdomen/Pelvis W IV Cont ONLY Date of Exam: Exam# [id number] Ordering Dr: Oliver Marley DO :[id number] STUDY: CT ABDOMEN AND PELVIS WITH CONTRAST [...] at 18:39 EDT , CC: Dr. Oliver Marley, DO; No Primary Care Physician Senior Instructional Designer: Signed Normal [facility] CBC W/Diff, Automatedon 07-02 Absolute Lymph 4.18 X10 3/uL Normal 0.83-4.51 [facility] Comment on above: Performed By: #### L 100.0100, L503.6005, L700.6800, L501.2450, L500.4050 ####[facility] [address] [place], [address] Absolute Neut 17.5 X10 3/uL High 2.0-7.7 [facility] Comment on above: Performed By: #### L 100.0100, L503.6005, L700.6800, L501.2450, L500.4050 ####[facility] [address] [place], [address] Basophils/100 WBC (Bld) 0.4 % Normal 0-1 [facility] Comment on above: Performed By: #### L 100.0100, L503.6005, L700.6800, L501.2450, L500.4050 ####[facility] [address] [place], [address] Eosinophils/100 WBC (Bld) 0.2 % Normal 0-5 [facility] Comment on above: Performed By: #### L 100.0100, L503.6005, L700.6800, L501.2450, L500.4050 ####[facility] [address] [place], [address] Erythrocyte distribution width (RBC) [Ratio] 13.2 % Normal 11.6-14.6 [facility] Comment on above: Performed By: #### L 100.0100, L503.6005, L700.6800, L501.2450, L500.4050 ####[facility] [address] [place], [address] Hematocrit (Bld) [Volume fraction] 44.1 % Normal 37-47 [facility] Comment on above: Performed By: #### L 100.0100, L503.6005, L700.6800, L501.2450, L500.4050 ####[facility] [address] [place], [address] Hemoglobin (Bld) [Mass/Vol] 15.4 g/dL High 12.0-15.0 [facility] Comment on above: Performed By: #### L 100.0100, L503.6005, L700.6800, L501.2450, L500.4050 ####[facility] [address] [place], [address] IG% 0.700 Normal 0.0-0.9 [facility] Comment on above: Result Comment: IG% - Immature Granulocytes (promyelocytes, myelocytes and metamyelocytes) > 1% indicates that a LEFT SHIFT is Present. Performed By: #### L 100.0100, L503.6005, L700.6800, L501.2450, L500.4050 ####[facility] [address] [place], [address] Lymphocytes/100 WBC (Bld) 17.8 % Low 19-41 [facility] Comment on above: Performed By: #### L 100.0100, L503.6005, L700.6800, L501.2450, L500.4050 ####[facility] [address] [place], [address] MCH (RBC) [Entitic mass] 29.7 pg Normal 27.0-32.0 [facility] Comment on above: Performed By: #### L 100.0100, L503.6005, L700.6800, L501.2450, L500.4050 ####[facility] [address] [place], [address] MCHC (RBC) [Mass/Vol] 34.9 g/dL Normal 32-36 [facility] Comment on above: Performed By: #### L 100.0100, L503.6005, L700.6800, L501.2450, L500.4050 ####[facility] [address] [place], [address] MCV (RBC) [Entitic vol] 85.0 fL Normal 81-99 [facility] Comment on above: Performed By: #### L 100.0100, L503.6005, L700.6800, L501.2450, L500.4050 ####[facility] [address] [place], [address] Monocytes/100 WBC (Bld) 6.3 % Normal 0-10 [facility] Comment on above: Performed By: #### L 100.0100, L503.6005, L700.6800, L501.2450, L500.4050 ####[facility] [address] [place], [address] Neutrophils/100 WBC (Bld) 74.6 % High 47-70 [facility] Comment on above: Performed By: #### L 100.0100, L503.6005, L700.6800, L501.2450, L500.4050 ####[facility] [address] [place], [address] Nucleated RBC (Bld) [#/Vol] 0 10*3/uL Normal 0-5 [facility] Comment on above: Performed By: #### L 100.0100, L503.6005, L700.6800, L501.2450, L500.4050 ####[facility] [address] [place], [address] Platelet mean volume (Bld) [Entitic vol] 11.9 fL Normal 6.2-12.0 [facility] Comment on above: Performed By: #### L 100.0100, L503.6005, L700.6800, L501.2450, L500.4050 ####[facility] [address] [place], [address] Platelets (Bld) [#/Vol] 279 10*3/uL Normal 150-450 [facility] Comment on above: Performed By: #### L 100.0100, L503.6005, L700.6800, L501.2450, L500.4050 ####[facility] [address] [place], [address] RBC (Bld) [#/Vol] 5.19 10*6/uL Normal 4.2-5.4 [facility] Comment on above: Performed By: #### L 100.0100, L503.6005, L700.6800, L501.2450, L500.4050 ####[facility] [address] [place], [address] RDW SD 40.6 fl Normal 35.1-43.9 [facility] Comment on above: Performed By: #### L 100.0100, L503.6005, L700.6800, L501.2450, L500.4050 ####[facility] [address] [place], [address] WBC (Bld) [#/Vol] 23.5 10*3/uL High 4.4-11.0 [facility] Comment on above: Performed By: #### L 100.0100, L503.6005, L700.6800, L501.2450, L500.4050 ####[facility] [address] [place], [address] Comprehensive [facility] 07-15-2024 Albumin [Mass/Vol] 4.4 g/dL Normal 3.2-5.0 [facility] Comment on above: Performed By: #### L 100.0100, L503.6005, L700.6800, L501.2450, L500.4050 ####[facility] [address] [place], [address] Albumin/Globulin [Mass ratio] 1.2 {ratio} Normal 0.9-2.4 [facility] Comment on above: Performed By: #### L 100.0100, L503.6005, L700.6800, L501.2450, L500.4050 ####[facility] [address] [place], [address] ALK P 56 U/L Normal 45-117 [facility] Comment on above: Performed By: #### L 100.0100, L503.6005, L700.6800, L501.2450, L500.4050 ####[facility] [address] [place], [address] ALT [Catalytic activity/Vol] 47 U/L Normal 13-56 [facility] Comment on above: Performed By: #### L 100.0100, L503.6005, L700.6800, L501.2450, L500.4050 ####[facility] [address] [place], [address] AST [Catalytic activity/Vol] 31 U/L Normal 15-37 [facility] Comment on above: Performed By: #### L 100.0100, L503.6005, L700.6800, L501.2450, L500.4050 ####[facility] [address] [place], [address] Bilirubin [Mass/Vol] 2.20 mg/dL High 0.20-1.00 [facility] Comment on above: Result Comment: For patients on eltrombopag therapy, use of Dimension [place] TBIL is not recommended. Performed By: #### L 100.0100, L503.6005, L700.6800, L501.2450, L500.4050 ####[facility] [address] [place], [address] BUN/CRE 19.3 RATIO Normal 10-20 [facility] Comment on above: Performed By: #### L 100.0100, L503.6005, L700.6800, L501.2450, L500.4050 ####[facility] [address] [place], [address] CA,Total 10.9 mg/dL High 8.5-10.1 [facility] Comment on above: Performed By: #### L 100.0100, L503.6005, L700.6800, L501.2450, L500.4050 ####[facility] [address] [place], [address] Chloride [Moles/Vol] 101 mmol/L Normal 98-107 [facility] Comment on above: Performed By: #### L 100.0100, L503.6005, L700.6800, L501.2450, L500.4050 ####[facility] [address] [place], [address] CO2 [Moles/Vol] 29.0 mmol/L Normal 21.0-32.0 [facility] Comment on above: Performed By: #### L 100.0100, L503.6005, L700.6800, L501.2450, L500.4050 ####[facility] [address] [place], [address] Creatinine [Mass/Vol] 0.99 mg/dL Normal 0.55-1.02 [facility] Comment on above: Result Comment: The validity of the calculated GFR GFRAA in patients over 70 years has not been determined. Clinical correlation is essential. Performed By: #### L 100.0100, L503.6005, L700.6800, L501.2450, L500.4050 ####[facility] [address] [place], [address] ECRCL 94.64 ml/min Normal [facility] Comment on above: Performed By: #### L 100.0100, L503.6005, L700.6800, L501.2450, L500.4050 ####[facility] [address] [place], [address] EST GFR - AA 84 mL/min Normal >60 [facility] Comment on above: Result Comment: Afri can Dominican GFR Calc Performed By: #### L 100.0100, L503.6005, L700.6800, L501.2450, L500.4050 ####[facility] [address] [place], [address] GAP 6 Normal 5-15 [facility] Comment on above: Performed By: #### L 100.0100, L503.6005, L700.6800, L501.2450, L500.4050 ####[facility] [address] [place], [address] GFR/1.73 sq M.predicted among non-blacks MDRD (S/P/Bld) [Vol rate/Area] 70 mL/min/{1.73_m2} Normal >60 [facility] Comment on above: Result Comment: Non- GFR Calc Performed By: #### L 100.0100, L503.6005, L700.6800, L501.2450, L500.4050 ####[facility] [address] [place], [address] Globulin (S) [Mass/Vol] 3.8 g/dL Normal 2.2-4.2 [facility] Comment on above: Performed By: #### L 100.0100, L503.6005, L700.6800, L501.2450, L500.4050 ####[facility] [address] [place], [address] Glucose [Mass/Vol] 119 mg/dL High 74-106 [facility] Comment on above: Result Comment: Fast ing Glucose result from 100 to 125 mg/dL suggests IMPAIRED HOMEOSTASIS per A.D.A. criteria. Performed By: #### L 100.0100, L503.6005, L700.6800, L501.2450, L500.4050 ####[facility] [address] [place], [address] Potassium [Moles/Vol] 3.0 mmol/L Low 3.5-5.1 [facility] Comment on above: Performed By: #### L 100.0100, L503.6005, L700.6800, L501.2450, L500.4050 ####[facility] [address] [place], [address] Sodium [Moles/Vol] 136 mmol/L Normal 136-145 [facility] Comment on above: Performed By: #### L 100.0100, L503.6005, L700.6800, L501.2450, L500.4050 ####[facility] [address] [place], [address] T PROT 8.2 g/dL Normal 6.4-8.2 [facility] Comment on above: Performed By: #### L 100.0100, L503.6005, L700.6800, L501.2450, L500.4050 ####[facility] [address] [place], [address] Urea nitrogen [Mass/Vol] 19 mg/dL High 7-18 [facility] Comment on above: Performed By: #### L 100.0100, L503.6005, L700.6800, L501.2450, L500.4050 ####[facility] [address] [place], [address] Emergency Department Summary on 07-15-2024 Emergency Department Summary [facility] Medical Records Department [address] [place] [address] Emergency Department Summary 07/15/24 MR#: [id number] Acct: [id number] Name: JOSHUA CHOUDHARY Rep #: [id number] : 1995 29 From: Oliver Marley DO PCP: Care Physician,No Primary Status:DEP ER Location: ED HPI History of Present Illness Chief Complaint: Nausea/Vomiting Detail of Chief Complaint: Nausea and vomiting Informant: patient Narrative Narrative: Patient presents to the emergency department with complaint of nausea and vomiting. Patient states that she traveled to [facility] 3 days ago and drank heavily [...] that she is a daily marijuana smoker. [facility] Medical History PCOS (polycystic ovarian syndrome) Home [...] 0 current occupational status: employed current occupation: [employer] Smoking Status: Never smoker Smokeless [...] well d (more content not included)... Normal [facility] Lactic Acidon 07-15-2024 Lactate [Moles/Vol] 1.2 mmol/L Normal 0.4-1.9 [facility] Comment on above: Order Comment: Y Performed By: #### L 100.0100, L503.6005, L700.6800, L501.2450, L500.4050 ####[facility] [address] [place], [address] Lipaseon 07-15-2024 Lipase [Catalytic activity/Vol] 43 U/L Normal 13-75 [facility] Comment on above: Result Comment: Jose porter note: LIPASE revised reference range effective 23. New Lipase methodology. Expected to produce lower values than the previous assay method. NEW Reference Range: 13 - 75 U/L Performed By: #### L 100.0100, L503.6005, L700.6800, L501.2450, L500.4050 ####[facility] [address] [place], [place], [id number] ,Serum,hCG Quali.on 07-15-2024 HCG, SERUM QUAL Negative Normal [facility] Comment on above: Performed By: #### L 100.0100, L503.6005, L700.6800, L501.2450, L500.4050 ####[facility] [address] [place], [address] Urinalysis, Completeon 07-15 AMORPHOUS 1+ URATE Normal [facility] Comment on above: Order Comment: COLLE CTOR TO SPECIFY Performed By: #### L 400.0001 #### [facility] [address] [place], [address] EPI,SQUAMOUS 0-5 SEEN Normal 5-10 [facility] Comment on above: Order Comment: COLLE CTOR TO SPECIFY Performed By: #### L 400.0001 #### [facility] [address] [place], [address] RBC 5-10 SEEN Normal 0-5 [facility] Comment on above: Order Comment: COLLE CTOR TO SPECIFY Performed By: #### L 400.0001 #### [facility] [address] [place], [address] WBC 0-5 SEEN Normal 0-5 [facility] Comment on above: Order Comment: COLLE CTOR TO SPECIFY Performed By: #### L 400.0001 #### [facility] [address] [place], [address] BACTERIA 0 SEEN Normal None Seen [facility] Comment on above: Order Comment: COLLE CTOR TO SPECIFY Performed By: #### L 400.0001 #### [facility] [address] [place], [address] Mucus Ql (Urine sed) 0 SEEN Normal [facility] Comment on above: Order Comment: XI CTOR TO SPECIFY Performed By: #### L 400.0001 #### [facility] [address] [place], [address] Glucose Glucometer (BldC) [M ass/Vol]Ordered By: Ry James on 03-30-2023 Glucose [Mass/Vol] 121 mg/dL 74-106 [facility] Comment on above: MANAGEMENT OF PATIEN T CARE PER NURSING PROTOCOL Absolute lymphocyte countOrd ered By: Andres Loyola on 03-29-2023 Lymphocytes Auto (Unsp spec) [#/Vol] 4.08 10*3/uL 0.83-4.51 [facility] Amorphous sediment detection in urine sediment by light microscopyOrdered By: Andres Loyola on 03-29-2023 Amorphous sediment LM Ql (Urine sed) 3+ [facility] Basophil percentageOrdered B y: Andres Loyola on 03-29-2023 Basophil percentage 0 SEEN /hpf 0-5 [facility] Basophils/100 WBC (Bld) 0.4 % 0-1 [facility] Eosinophils/100 WBC (Bld) 0.4 % 0-5 [facility] Neutrophils (Bld) [#/Vol] 11.2 10*3/uL 2.0-7.7 [facility] Neutrophils/100 WBC (Bld) 67.3 % 47-70 [facility] WBC (Bld) [#/Vol] 16.6 10*3/uL 4.4-11.0 [facility] Bilirubin Test strip Ql (U)O rdered By: Andres Loyola on 03-29-2023 Bilirubin Ql (U) Negative Negative [facility] Blood erythrocytes count (nu mber/volume)Ordered By: Andres Loyola on 03-29-2023 RBC (Bld) [#/Vol] 4.76 10*6/uL 4.2-5.4 [facility] Blood hemoglobin measurement (mass/volume)Ordered By: Andres Loyola on 03-29-2023 Hemoglobin (Bld) [Mass/Vol] 13.7 g/dL 12.0-15.0 [facility] Blood lymphocytes/100 leukoc ytesOrdered By: Andres Loyola on 03-29-2023 Lymphocytes/100 WBC (Bld) 24.7 % 19-41 [facility] Blood monocytes/100 leukocyt esOrdered By: Andres Loyola on 03-29-2023 Monocytes/100 WBC (Bld) 6.5 % 0-10 [facility] Blood platelet mean volumeOr dered By: nAdres Loyola on 03-29-2023 Platelet mean volume (Bld) [Entitic vol] 11.4 fL 6.2-12.0 [facility] Determination of erythrocyte mean corpuscular volume (MCV)Ordered By: Andres Loyola on 03-29-2023 MCV (RBC) [Entitic vol] 83.8 fL 81-99 [facility] Hematocrit Auto (Bld) [Volum e fraction]Ordered By: Andres Loyola on 03-29-2023 Hematocrit (Bld) [Volume fraction] 39.9 % 37-47 [facility] Ketones Test strip Ql (U)Ord ered By: Andres Loyola on 03-29-2023 Ketones Ql (U) 15 mg/dl Negative [facility] Laboratory - Hematology and Cell countsOrdered By: Andres Loyola on 03-29-2023 Erythrocyte distribution width (RBC) [Entitic vol] 41.5 fL 35.1-43.9 [facility] Erythrocyte distribution width (RBC) [Ratio] 13.7 % 11.6-14.6 [facility] Immature granulocytes/100 WBC (Bld) 0.700 % 0.0-0.9 [facility] Comment on above: IG% - Immature Granu locytes (promyelocytes, myelocytes and metamyelocytes) > 1% indicates that a LEFT SHIFT is Present. MCH (RBC) [Entitic mass] 28.8 pg 27.0-32.0 [facility] Nucleated RBC/100 WBC (Bld) [Ratio] 0 % 0-5 [facility] MCHC Auto (RBC) [Mass/Vol]Or dered By: Andres Loyola on 03-29-2023 MCHC (RBC) [Mass/Vol] 34.3 g/dL 32-36 [facility] Mucus LM Ql (Urine sed)Order ed By: Andres Loyola on 03-29-2023 Mucus Ql (Urine sed) 0 SEEN /hpf [facility] Nitrite Test strip Ql (U)Ord ered By: Andres Loyola on 03-29-2023 Nitrite Ql (U) Negative Negative [facility] Platelets bldOrdered By: Rufino Lyoola on 03-29-2023 Platelets (Bld) [#/Vol] 308 10*3/uL 150-450 [facility] Protein Test strip Ql (U)Ord ered By: Andres Loyola on 03-29-2023 Protein Ql (U) 30 mg/dl Negative [facility] Squamous epithelial cells de tection in urine sediment by light microscopyOrdered By: Andres Loyola on 03-29-2023 Epithelial cells.squamous LM Ql (Urine sed) 0 SEEN /hpf 5-10 [facility] Urine blood detectionOrdered By: Andres Loyola on 03-29-2023 RBC Ql (U) 25 /ul Negative [facility] RBC Ql (U) 0 SEEN /hpf 0-5 [facility] Urine clarityOrdered By: Rufino Loyola on 03-29-2023 Clarity (U) Sl. Cloudy Clear [facility] Urine color determinationOrd ered By: Andres Loyola on 03-29-2023 Color (U) Yellow Yellow [facility] Urine glucose detectionOrder ed By: Andres Loyola on 03-29-2023 Glucose Ql (U) Normal mg/dl Normal [facility] Urine leukocyte esterase det ection by dipstickOrdered By: Andres Loyola on 03-29-2023 Leukocyte esterase Test strip Ql (U) 25 /ul Negative [facility] Urine pHOrdered By: Andres Loyola on 03-29-2023 pH (U) 5.0 [pH] 5.0 - 8.0 [facility] Urine sediment bacteria coun t by microscopy (number/high power field)Ordered By: Andres Loyola on 03-29-2023 Bacteria LM.HPF (Urine sed) [#/Area] 0 /[HPF] None Seen [facility] Urine specific gravity measu rementOrdered By: Andres Loyola on 03-29-2023 Specific gravity (U) [Rel density] 1.025 1.002-1.03 0 [facility] Urobilinogen Auto test strip Ql (U)Ordered By: Andres Loyola on 03-29-2023 Urobilinogen Ql (U) 1 mg/dl Normal [facility] Basophil percentageOrdered B y: Ry James on 03-28-2023 Chloride [Moles/Vol] 106 mmol/L 98-107 [facility] Glucose [Mass/Vol] 160 mg/dL 74-106 [facility] Comment on above: Fasting Glucose resu lt greater than or equal to 126 mg/dL suggests DIABETES MELLITUS per A.D.A. criteria. Potassium [Moles/Vol] 3.4 mmol/L 3.5-5.1 [facility] Sodium [Moles/Vol] 138 mmol/L 136-145 [facility] Beta hCG serum qualOrdered B y: Ry James on 03-28-2023 Beta HCG ( test) Ql Negative [facility] Influenza virus A and B and SARS-CoV-2 (COVID-19) Ag panel - Upper respiratory specimOrdered By: Ry James on 03-28-2023 SARS-CoV-2 (COVID-19) RNA MURALI+probe Ql (Resp) [facility] Laboratory - Chemistry and C hemistry - challengeOrdered By: Ry James on 03-28-2023 CO2 [Moles/Vol] 20.0 mmol/L 21.0-32.0 [facility] Urea nitrogen/Creatinine [Mass ratio] 10.2 mg/mg 10-20 [facility] Laboratory - Drug toxicology Ordered By: Ry James on 03-28-2023 Amphetamines Ql (U) Negative <1000 ng/mL [facility] Benzodiazepines Ql (U) Negative < 200 ng/mL [facility] Cannabinoids Screen Ql (U) Positive < 50 ng/mL [facility] Cocaine Ql (U) Negative < 300 ng/mL [facility] Opiates Ql (U) Positive < 300 ng/mL [facility] No Panel InformationOrdered By: Ry James on 03-28-2023 MDMA (Ecstasy) Screen Negative < 500 ng/mL [facility] Urine Barbiturates Screen Negative < 200 ng/mL [facility] Urine Drug Screen Comment [facility] Comment on above: CONFIRMATORY TESTING FOR ALL [...] Urine Methadone Screen Negative < 300 ng/mL [facility] Estimated Creatinine Clearance Calc 71.30 ml/min [facility] Estimated GFR (MDRD) Amer 77 mL/min >60 [facility] Comment on above: GFR Calc Estimated GFR (MDRD) Non-Af Amer 63 mL/min >60 [facility] Comment on above: Non- GFR Calc Ethyl Alcohol Level < 3.0 mg/dL [facility] Comment on above: The serum:whole bloo d ethanol ratio is approximately 1.14and varies slightly with hematocrit. Medical Alcohol reference interval and critical value innon-tolerant individuals; 50 - 100 Impairment 100 Intoxication 100 - 250 Severe Poisoning 250 - 400 Deep/possible fatal coma Serum or plasma calcium prakash urement (mass/volume)Ordered By: Ry James on 03-28-2023 Calcium [Mass/Vol] 11.1 mg/dL 8.5-10.1 [facility] Serum or plasma creatinine m easurement (mass/volume)Ordered By: Ry James on 03-28-2023 Creatinine [Mass/Vol] 1.08 mg/dL 0.55-1.02 [facility] Comment on above: The validity of the calculated GFR & GFRAA in patients over 70 years has not been determined. Clinical correlation is essential. Serum or plasma urea nitroge n measurement (mass/volume)Ordered By: Ry James on 03-28-2023 Urea nitrogen [Mass/Vol] 11 mg/dL 7-18 [facility] Thin prep Papanicolaou smear with manual screeningOrdered By: Ry James on 03-28-2023 Thin prep Papanicolaou smear with manual screening 12 5-15 [facility] Urine phencyclidine (PCP) de tectionOrdered By: Ry James on 03-28-2023 Phencyclidine Ql (U) Negative < 25 ng/mL [facility] ANES Shey 10-04-2017 ANES POST HNO ID: [id number] thor: Miguel Andradeervice: AnesthesiologyAuthor Type: AnesthesiologistType: Anesthesia PostOpFiled: 10/04/2017 4:42 PMNote Text:POST ANESTHESIA EVALUATION NOTESERVICE DATE: 10/04/2017SERVICE TIME: 4.30DOB: 1995Vitals: 10/04/1813Temp: 36.6 ?C (97.9 ?F) 36.6 ?C (97.9 ?F) 10/04/1814P: 126/66 120/64 118/58 119/64 10/04/1814Pulse: 71 76 71 76 10/04/1814Resp: 16 16 16 16 01/03/264932 01/03/104445 01/03/385285 01/03/717218FnA5: 95% 96% 96% 96%Validated Vital Signs: YesPOST [...] : 4:42 PM PAGER/CONTACT #: anesthesia Normal [facility] ANES PREOPon 10-04-2017 ANES PREOP HNO ID: [id number] thor: Miguel Andradeervice: AnesthesiologyAuthor Type: AnesthesiologistType: Anesthesia PreOpFiled: 10/04/2017 12:21 PMNote Text: ANESTHESIOLOGY DAY OF SURGERY NOTESERVICE DATE: 10/04/2017SERVICE TIME:1221DOB: 1995Procedure(s) (LRB):LAPAROSCOPIC CHOLECYSTECTOMY (N/A)Surgeon(s):Basim SloananEstimated body mass index is 34.06 kg/(m2) as calculated from thefollowing: Height as of this encounter: 167.6 cm (5' 6). Weight as of this encounter: 95.7 kg (211 lb).Most recent hematocrit and potassium results:No results found for this basename: HCT,HEMATOCRIT,K,POTASSIUMAN ES DOS/PREOP NOTE:Vitals: 019BP: 116/70Pulse: 79Resp: 16Temp: 36.6 ?C (97.9 ?F)TempSrc: [...] October 04, 2017 : 12:21 PM CSN: [id number] [facility] BRIEF OP NOTon 10-04-2017 BRIEF OP NOT HNO ID: [id number] thor: Basim Vargheseice: General SurgeryAuthor Type: PhysicianType: Brief Op NoteFiled: 10/04/2017 2:09 PMNote Text:BRIEF OPERATIVE NOTATION FOR SURGICAL PROCEDURE.Joshua Zavala Blanka 1995 [id number] femaleLOG ID: [id number]/Procedure Date: 10/04/2017Incision/Procedure Start Time: 1:06 PMIncision Close/Procedure End Time: 2:02 PMSurgeon(s)/Proceduralist(s ) and Desktop Publisher(s):Surgeon(s) and Role: * Basim Prince - PrimaryPhysician Desktop Publisher: Pamela SanchezERRVIRGIE PHYSICIAN:OutpatientDEPT: JUDITH PROVIDER: [facility] POS:[id number] : GeneralASA CLASS: 2 - mildDIAGNOSIS: biliary colic, cholelithiasisPROCEDURE: LAPAROSCOPIC CHOLECYSTECTOMY WITH INTRAOPERATIVE CHOLEANGIOGRAM- 16618-017CPU: 1000EBL: 10Specimens: gtallbladderADDITIONAL DIAGNOSES:FINDINGS: normal IOCCOMPLICATIONS: NonePMHx -PAST MEDICAL HISTORYDiagnosis Date- CholelithiasesCOMORBIDITIES - ObesityPost Op Occurrences - NoneWound Classification - Clean ContaminatedOperative note dictated in the dictation system. - [id number] Prince MD [facility] HISTORY PHYSICALon 201 8 HISTORY PHYSICAL HNO ID: [id number] thor: Basim Vargheseice: General SurgeryAuthor Type: PhysicianType: HANDPFiled: 10/04/2017 9:57 AMNote Text:HISTORY AND PHYSICAL?Joshua Moscoso1995?REFERRING PHYSICIAN: Yousif Houser MD?CHIEF COMPLAINT: New Patient?HPI: [...] pulse 76, height 167.6 cm (5' 6), dkwnxo90.4 kg (206 lb). Body mass index is [...] procedure.?Planned Procedure: LAPAROSCOPIC CHOLECYSTECTOMY WITH INTRAOPERATIVECHOLEANGIOGRAM - 22704-327?Planned antibiotic: Ancef 2gm IVPB outreach liaison to OR?SCDs needed - Yes?Desktop Publisher Needed - No?Diagnoses: (R10.11) RUQ pain (primary encounter diagnosis)? Basim Prince MD [facility] NURSING PROGon 10-04-2017 NURSING PROG HNO ID: [id number] thor: [place]) Dina Wilsonice: (none)Author Type: Registered NurseType: Nursing Progress NoteFiled: 10/04/2017 6:57 PMNote Text: Nursing Progress NotePatient Name: Joshua DiazRN: [id number] Location: MA Surgery/MA Surgery Daily Note:Pt. States her nausea is gone and feels much better. Pain tolerable menezes/c home and wants to be d/c home.This note was completed by: Jennie Wilson RN [facility] NURSING PROG HNO ID: [id number] thor: [place]) DAYANA Wilsonervice: (none)Author Type: Registered NurseType: Nursing Progress NoteFiled: 10/04/2017 5:00 PMNote Text: Nursing Progress NotePatient Name: Joshua DiazRN: [id number] Location: MA Surgery/ME Surgery Daily Note:Pt up to BR with assist. Pt. Able to urinate without difficulty. Smallemesis prior to getting up. States nausea feels better.This note was completed by: Jennie Wilson RN [facility] NURSING PROG HNO ID: [id number] thor: Yamilet LuqueRn) Suzan Horta: (none)Author Type: Registered NurseType: Nursing Progress NoteFiled: 10/04/2017 2:05 PMNote Text: Nursing Progress NotePatient Name: Joshua DiazRN: [id number] Location: ME Surgery/ME Surgery Report off to ANA Egan for lunch coverage. IV site withoutcomplications. Pt smiling, pleasant and in NAD. Care relinquished.This note was completed by: Yamilet Horta RN [facility] NURSING PROG HNO ID: [id number] thor: Yamilet LuqueRn) Suzan Horta: (none)Author Type: Registered NurseType: Nursing Progress NoteFiled: 10/04/2017 11:08 AMNote Text: Nursing Progress NotePatient Name: Joshua DiazRN: [id number] Location: ME Surgery/ME Surgery OR notified RN of possible 30-40 minute delay. Pt/family aware. Ptcontinues to laugh and denies pain or concerns. IV site withoutcomplications, NPO maintained. Warm blanket applied.This note was completed by: Yamilet Horta RN [facility] NURSING PROG HNO ID: [id number] thor: Yamilet (Rn) Suzan Horta: (none)Author Type: Registered NurseType: Nursing Progress NoteFiled: 10/04/2017 10:36 AMNote Text: Nursing Progress NotePatient Name: Joshua DiazRN: [id number] Location: ME Surgery/ME Surgery Family at bedside. IV infusing and site without complications. Ptlaughing and refuses warm blanket. Ready for OR.This note was completed by: Yamilet Horta RN Normal [facility] OPERATIVE NOon 10-04-2017 OPERATIVE NO HNO ID: [id number] thor: Basim Sheridanervice: General SurgeryAuthor Type: PhysicianType: Operative ReportFiled: 10/05/2017 8:02 AMNote Text:[facility]- Operative ReportBESSJOSHUA MDOB: 1995 AGE: 22 SEX: FMRN: [id number] ACCTNUM: [id number] SVC: GEN LOCATION: [address] PHYSICIAN: BASIM SLOANANDATE OF PROCEDURE: 10/04/2017SURGEON: Basim Prince M.D.JOB CHECKER: NONEANESTHESIA: General endotracheal.PREOPERATIVE DIAGNOSIS(ES): Symptomatic cholelithiasis, biliary colic.POSTOPERATIVE DIAGNOSIS(ES): Symptomatic cholelithiasis, biliary colic,normal cholangiogram.NAME OF OPERATION: Laparoscopic cholecystectomy with cholangiogram.INDICATIONS:ES TIMATED BLOOD LOSS: 10 mL.COMPLICATIONS: None.SPECIMENS: Gallbladder.DRAINS: None.URINE OUTPUT: No catheter.LOG ID: [id number].START TIME: 1:06 p.m.END TIME: 2:02 p.m.ASA: 2.IV [...] removedthrough the umbilical port site. 0 Maxon ebluux-ig-zkqst suture wasplaced into the defect. The gallbladder [...] present for the entire case. Pamela Welsh, physicianmaxt, provided skin closure.Basim Prince M.D.General SurgeryRG:[id number]: 10/04/2017 14:09:38T: 10/04/2017 22:16:14Job #: [id number] [facility] PLAN OF CAREon 10-04-2017 PLAN OF CARE HNO ID: [id number] thor: Kathrine Alarcon (Heat Treater)Service: (none)Author Type: TechnicianType: Plan of CareFiled: 10/04/2017 3:36 PMNote Text:[employer]OMIST BEDSIDE DELIVERY SURVEY1. Patient to use [facility] Bedside Delivery - YES2. If fax, patient would like us to fax prescriptions to [facility]. Pharmacy: b. Location: c. Phone:3. Insurance card on file - YES4. Credit card for payment - [employer] B[facility] DELIV[facility] SERVICEPatient Name: Joshua DiazRN: [id number] marked outpatient medications were Filled at: [place] and delivered tothe patient's bedside to pharm [...] as: ZOFRAN ODT 10/02 ORAL PROBIOTIC 4X ORALDiana Dorian (Heat Treater)PAGER: [id number] 2017 3:36 PM [facility] PT EDon 10-04-2017 PT ED HNO ID: [id number] thor: Yamilet (Rn) DAYANA Hortaervice: (none)Author Type: Registered NurseType: Patient EducationFiled: 10/04/2017 10:35 AMNote Text:PRE OP LEARNING ASSESSMENTPROCEDURE/SURGERY: Lap cholecystectomyREADINESS TO LEARN eagerCOGNITIVE ABILITY: Alert and orientedMOTIVATION TO LEARN: EagerFAMILY SUPPORT: High - Very involved in pt carePATIENT LEARNS BEST BY: Individual InstructionFACTORS AFFECTING LEARNING: NonePHYSICAL LIMITATIONS AFFECTING LEARNING: NoneElectronically Signed By: Yamilet Horta RN [facility] SURGICAL PATHOLOGYon 018 SURGICAL PATHOLOGY [facility]: [id number] Physician: BASIM PRINCE MD FINAL DIAGNOSISGallbladder, cholecystectomy [...] surface is henry-pink and displays normal mucosal ridges.Electronic Scale Tester sections are submitted in formalin in one cassette.KVB/dss 10/05/2017Gross examination performed at [facility], [facility] [place] [address] of Report: 10/06/2017Date of Procedure: 10/04/2017Date of Receipt: 10/04/2017Submitted by: BASIM PRINCE MDLocation: MEORDiagnostic interpretation performed at [facility], [facility] [place] [address]. [facility] Comment on above: Performed By: #### P ATHS ####[facility] [place] [address] [place], [place] [phone] XR CHOLANGIOGRAM INTRAOPon 0 10-04-2017 Cholesterol * * *Final Report* * *DATE OF EXAM: Oct 04 2017 1:35PM MDX 5421 - XR CHOLANGIOGRAM INTRAOP / REASON: EPIGASTRIC PAIN, CHOLELITHIASIS * * * * Physician Interpretation * * * * HISTORY: Cholelithiasis, epigastric painTECHNIQUE: Fluoroscopic intraoperative intensifier screen images were done.Fluoroscopic Radiation Summary:Plane A, Air Kerma: 2.5 mGyDose Area Product (DAP): 780.9 mGy*tgA9Inqpjr time: 0:12 min:secRESULT: Contrast is shown in the biliary tree and flowing into the duodenum. No dilatation or obvious filling defect is seen.IMPRESSION: As in results.Senior Instructional Designer: FRANK Transcribe Date/Time: Oct 04 2017 2:19PDictated by : CLOVER SHARMA MDThicynthia examination was interpreted and the report reviewed and electronically signed by: CLOVER SHARMA MD on Oct 04 2017 2:19PM [id number] [facility] NURSING PROGon 10-03-2017 NURSING PROG HNO ID: [id number] thor: Gloria Amado (Rn) DAYANA Mcdanielservice: (none)Author Type: Registered NurseType: Nursing Progress NoteFiled: 10/03/2017 3:45 PMNote Text:PACC Nurse Progress NoteHistory AND Physical:PACC Visit Date: 10/03/2017Labs Within Last 6 Months:N/AImaging Within Last 12 Months:See chartCardiac Testing:N/ALast Menstrual Period:LMP Date: 09/12/2017Risk Assessment:N/AAnesthesia Review:DOSNarrative:No new consults or testing ordered.Pre-op Considerations:N/AChart Check:Maurisio Mcdaniels RNJanuary 2017 3:44 PM [facility] HOSPon 09-28-2017 HOSP Patient:Joshua Moscoso MRN: Height:5' 6(1.676 m)Weight:211 lb 8 oz (95.936 kg)Outpatient Medications as of 10/04/17:CRYSELLE 0.3-30 mg-mcg per tabletB INFANTIS/B ANI/B CONSUELO/B BIFID (PROBIOTIC 4X ORAL) VIT/IRON FUM/FOLIC AC ( 10/02 ORAL)omeprazole (PRILOSEC) 20 mg capsuleondansetron orally disintegrating (ZOFRAN ODT) 4 mg disintegrating tabletAdmission/Clinic Administered Medications as of 10/04/17:lactated ringers infusionceFAZolin 2 g in dextrose (iso-osmotic) 100 mL (ANCEF, KEFZOL)Problem List:Abdominal pain, epigastric [R10.13]Gallstones [K80.20]RUQ pain [R10.11]Allergies:No Known AllergiesDate Verified:10/04/17Lab ValuesNo results within the last 30 days for the following basenames: K,HCTProgress Notes ([facility]):Teresa Sorto MA 09/28/2017 3:21 PM SignedREVIEW [...] MD 09/28/2017 3:39 PM SignedHISTORY AND PHYSICALEmtd Lucas [facility]1995REFERRING PHYSICIAN: Yousif Houser [facility] COMPLAINT: New PatientHPI: Joshua is a 22 [...] procedure.Planned Procedure: LAPAROSCOPIC CHOLECYSTECTOMY WITH INTRAOPERATIVECHOLEANGIOGRAM - 57110-323Arhijgk antibiotic: Ancef 2gm IVPB outreach liaison to ORSCDs needed - YesAssistant Needed - NoDiagnoses: (R10.11) RUQ pain (primary encounter diagnosis) Basim Prince MD [facility] Lab Report: ,Urineo n 03-07-2017 Beta HCG ( test) Ql (U) Negative [employer] Work Phone: Office Visit: Mar[place]ruz Dietary management education, guidance, and counseling (procedure) yes Invalid Interpretation Code [facility] [employer] [employer] Work Phone: Documentation of current medications (procedure) Done Invalid Interpretation Code [facility] [employer] [employer] Work Phone: Fall risk assessment No [employer] [employer] Work Phone: Tobacco smoking status NHIS Never [facility] Work Phone: Tobacco smoking status NHIS Former smoker [facility] Work Phone: Tobacco use [facility] Former smoker Invalid Interpretation Code [facility] Work Phone: Office Visit: GERDon General categories [interpretation] of Cervical or vaginal smear or scraping by Cyto stain Unknown [facility] Work Phone: Vital Signs Date Time Vital Sign Value Performing Clinician Facility 03-14-2025 22:25-0400 Body temperature 98.1 [degF] Lesa Trill REGIONAL ACCOUNT DIRECTOR-C Work Phone: [facility] 03-14-2025 22:25-0400 Diastolic blood pressure 91 mm[Hg] Lesa Trill REGIONAL ACCOUNT DIRECTOR-C Work Phone: [facility] 03-14-2025 22:25-0400 Heart rate 59 /min Lesa Trill REGIONAL ACCOUNT DIRECTOR-C Work Phone: [facility] 03-14-2025 22:25-0400 Respiratory rate 16 /min Lesa Trill REGIONAL ACCOUNT DIRECTOR-C Work Phone: [facility] 03-14-2025 22:25-0400 SaO2% (BldA) [Mass fraction] 97 % Lesa Trill REGIONAL ACCOUNT DIRECTOR-C Work Phone: [facility] 03-14-2025 22:25-0400 Systolic blood pressure 125 mm[Hg] Lesa Trill REGIONAL ACCOUNT DIRECTOR-C Work Phone: [facility] 03-14-2025 19:38-0400 Body height 167.64 cm Lesa Trill REGIONAL ACCOUNT DIRECTOR-C Work Phone: [facility] 03-14-2025 19:38-0400 Body mass index (BMI) [Ratio] 28.7 kg/m2 Lesa Trill REGIONAL ACCOUNT DIRECTOR-C Work Phone: [facility] 03-14-2025 19:38-0400 Body weight 80.73 kg Lesa Trill REGIONAL ACCOUNT DIRECTOR-C Work Phone: [facility] 02-06-2025 15:24-0400 Body temperature 98.2 [degF] Lesa Trill REGIONAL ACCOUNT DIRECTOR-C Work Phone: [facility] 02-06-2025 15:24-0400 Diastolic blood pressure 62 mm[Hg] Lesa Trill REGIONAL ACCOUNT DIRECTOR-C Work Phone: [facility] 02-06-2025 15:24-0400 Heart rate 85 /min Lesa Trill REGIONAL ACCOUNT DIRECTOR-C Work Phone: [facility] 02-06-2025 15:24-0400 Respiratory rate 16 /min Lesa Trill REGIONAL ACCOUNT DIRECTOR-C Work Phone: [facility] 02-06-2025 15:24-0400 SaO2% (BldA) [Mass fraction] 97 % Lesa Trill REGIONAL ACCOUNT DIRECTOR-C Work Phone: [facility] 02-06-2025 15:24-0400 Systolic blood pressure 127 mm[Hg] Lesa Trill REGIONAL ACCOUNT DIRECTOR-C Work Phone: [facility] 02-06-2025 09:37-0400 Body height 167.64 cm Lesa Trill REGIONAL ACCOUNT DIRECTOR-C Work Phone: [facility] 02-06-2025 09:37-0400 Body mass index (BMI) [Ratio] 29.4 kg/m2 Lesa Trill REGIONAL ACCOUNT DIRECTOR-C Work Phone: [facility] 02-06-2025 09:37-0400 Body weight 82.7 kg Lesa Trill REGIONAL ACCOUNT DIRECTOR-C Work Phone: [facility] 11-08-2024 13:29-0500 Body height 167.6 cm Lesa Soler MAGNETIC GRINDER OPERATOR.DE ICER KIT ASSEMBLER Work Phone: [facility] 11-08-2024 13:29-0500 Body mass index (BMI) [Ratio] 31.31 kg/m2 Lesa Soler MAGNETIC GRINDER OPERATOR.DE ICER KIT ASSEMBLER Work Phone: [facility] 11-08-2024 13:29-0500 Body temperature 98.1 [degF] Lesa Soler MAGNETIC GRINDER OPERATOR.DE ICER KIT ASSEMBLER Work Phone: [facility] 11-08-2024 13:29-0500 Body weight 88 kg Lesa Soler MAGNETIC GRINDER OPERATOR.DE ICER KIT ASSEMBLER Work Phone: [facility] 11-08-2024 13:29-0500 Diastolic blood pressure 70 mm[Hg] Lesa Soler MAGNETIC GRINDER OPERATOR.DE ICER KIT ASSEMBLER Work Phone: [facility] 11-08-2024 13:29-0500 Heart rate 69 /min Lesa Soler MAGNETIC GRINDER OPERATOR.DE ICER KIT ASSEMBLER Work Phone: [facility] 11-08-2024 13:29-0500 SaO2% (BldA) [Mass fraction] 98 % Lesa Soler MAGNETIC GRINDER OPERATOR.DE ICER KIT ASSEMBLER Work Phone: [facility] 11-08-2024 13:29-0500 Systolic blood pressure 112 mm[Hg] Lesa Soler MAGNETIC GRINDER OPERATOR.DE ICER KIT ASSEMBLER Work Phone: [facility] 11-03-2024 10:57-0500 Body mass index (BMI) [Ratio] 32.27 kg/m2 Keely Reddy MAGNETIC GRINDER OPERATOR.DE ICER KIT ASSEMBLER Work Phone: [facility] 11-03-2024 10:57-0500 Body temperature 99.61 [degF] Keely Reddy MAGNETIC GRINDER OPERATOR.DE ICER KIT ASSEMBLER Work Phone: [facility] 11-03-2024 10:57-0500 Body weight 90.7 kg Keely Reddy MAGNETIC GRINDER OPERATOR.DE ICER KIT ASSEMBLER Work Phone: [facility] 11-03-2024 10:57-0500 Diastolic blood pressure 71 mm[Hg] Keely Reddy MAGNETIC GRINDER OPERATOR.DE ICER KIT ASSEMBLER Work Phone: [facility] 11-03-2024 10:57-0500 Heart rate 77 /min Keely Reddy MAGNETIC GRINDER OPERATOR.DE ICER KIT ASSEMBLER Work Phone: [facility] 11-03-2024 10:57-0500 Respiratory rate 18 /min Keely Reddy MAGNETIC GRINDER OPERATOR.DE ICER KIT ASSEMBLER Work Phone: [facility] 11-03-2024 10:57-0500 SaO2% (BldA) [Mass fraction] 98 % Keely Reddy APRN.DE ICER KIT ASSEMBLER Work Phone: [facility] 11-03-2024 10:57-0500 Systolic blood pressure 105 mm[Hg] Keely Reddy APRN.DE ICER KIT ASSEMBLER Work Phone: [facility] 10-30-2024 08:01-0500 Body height 167.[address] [facility] 10-30-2024 08:01-0500 Body mass index (BMI) [Ratio] 31.47 kg/m2 Staci Givens RD [facility] 10-30-2024 08:01-0500 Body weight 88.[address] [facility] Comment on above: 1 mo ago at last Dr dias 09-11-2024 13:44-0500 Body height 167.[address] [facility] 09-11-2024 13:44-0500 Body mass index (BMI) [Ratio] 32.77 kg/m2 Staci Givens RD [facility] 09-11-2024 13:44-0500 Body weight 92.[address] [facility] 09-03-2024 13:25-0500 Body height 167.6 cm Lesa Soler APRN.DE ICER KIT ASSEMBLER Work Phone: [facility] 09-03-2024 13:25-0500 Body mass index (BMI) [Ratio] 32.77 kg/m2 Lesa Soler MAGNETIC GRINDER OPERATOR.DE ICER KIT ASSEMBLER Work Phone: [facility] 09-03-2024 13:25-0500 Body temperature 98.1 [degF] Lesa Soler APRN.DE ICER KIT ASSEMBLER Work Phone: [facility] 09-03-2024 13:25-0500 Body weight 92.08 kg Lesa Soler MAGNETIC GRINDER OPERATOR.DE ICER KIT ASSEMBLER Work Phone: [facility] 09-03-2024 13:25-0500 Diastolic blood pressure 62 mm[Hg] Lesa Soler APRN.DE ICER KIT ASSEMBLER Work Phone: [facility] 09-03-2024 13:25-0500 Heart rate 78 /min Lesa Soler APRN.DE ICER KIT ASSEMBLER Work Phone: [facility] 09-03-2024 13:25-0500 SaO2% (BldA) [Mass fraction] 97 % Lesa Soler APRN.DE ICER KIT ASSEMBLER Work Phone: [facility] 09-03-2024 13:25-0500 Systolic blood pressure 108 mm[Hg] Lesa Soler APRN.DE ICER KIT ASSEMBLER Work Phone: [facility] 08-28-2024 09:55-0500 Body height 167.6 cm Mario Monique MD Work Phone: [facility] 08-28-2024 09:55-0500 Body mass index (BMI) [Ratio] 33.57 kg/m2 Mario Monique MD Work Phone: [facility] 08-28-2024 09:55-0500 Body weight 94.35 kg Mario Monique MD Work Phone: [facility] 08-28-2024 09:55-0500 Diastolic blood pressure 71 mm[Hg] Mario Monique MD Work Phone: [facility] 08-28-2024 09:55-0500 Heart rate 72 /min Mario Monique MD Work Phone: [facility] 08-28-2024 09:55-0500 Systolic blood pressure 108 mm[Hg] Mario Monique MD Work Phone: [facility] 03-30-2023 09:14-0400 Respiratory rate 14 /min [facility] 03-30-2023 07:47-0400 Diastolic blood pressure 79 mm[Hg] [facility] 03-30-2023 07:47-0400 Heart rate 81 /min [facility] 03-30-2023 07:47-0400 SaO2% (BldA) [Mass fraction] 96 % [facility] 03-30-2023 07:47-0400 Systolic blood pressure 141 mm[Hg] [facility] 03-29-2023 21:44-0400 Body temperature 97.2 [degF] [facility] 03-28-2023 09:050400 Body height 167.64 cm [facility] 03-28-2023 09:050400 Body mass index (BMI) [Ratio] 32.3 kg/m2 [facility] 03-28-2023 09:050400 Body weight 90.71 kg [facility] 02-28-2017 14:13-0400 BMI (Body Mass Index) 31.79 kg/m2 Joshua Marshall RN RN [facility] Work Phone: 02-28-2017 14:13-0400 Body Temperature 98.1 [degF] Joshua Marshall RN RN [facility] Work Phone: 02-28-2017 14:13-0400 Body weight 89.36 kg Collette Curiel MD [facility] Work Phone: 02-28-2017 14:13-0400 BP Diastolic 88 mm[Hg] Joshua Marshall RN RN [facility] Work Phone: 02-28-2017 14:13-0400 BP Systolic 120 mm[Hg] Joshua Marshall RN RN [facility] Work Phone: 02-28-2017 14:13-0400 BSA (Body Surface Area) 1.99 m2 Joshua Marshall RN RN [facility] Work Phone: 02-28-2017 14:130400 Height 167.64 cm Joshua Marshall RN RN [facility] Work Phone: 02-28-2017 14:13-0400 Pulse (Heart Rate) 58 /min Joshua Marshall RN RN [facility] Work Phone: 02-28-2017 14:13-0400 Pulse Oximetry 98 % Joshua Marshall RN RN [facility] Work Phone: 02-28-2017 14:13-0400 Respiratory Rate 16 /min Joshua Marshall RN RN [facility] Work Phone: 02-28-2017 14:13-0400 Weight 89.36 kg Joshua Marshall RN RN [facility] Work Phone: Encounters Encounter Date Encounter Type Care Provider Facility Start: 03-21-2025 End: 03-21-2025 Telephone encounter Lesa Soler APRN.DE ICER KIT ASSEMBLER Work Phone: [facility] Comment on above: Lab Orders Start: 03-18-2025 End: 03-18-2025 ambulatory Lesa Soler MAGNETIC GRINDER OPERATOR.DE ICER KIT ASSEMBLER Work Phone: [facility] Start: 03-18-2025 End: 03-18-2025 Follow-up encounter Lesa Soler APRN.DE ICER KIT ASSEMBLER Work Phone: [facility] Comment on above: ED Follow-up ([place] [facility] 03/14/2025) Start: 03-14-2025 End: 03-14-2025 Emergency department patient visit Lesa Soler NP-Katlyn Work Phone: -Emergency Department Work Phone: Start: 02-14-2025 End: 02-14-2025 ambulatory Lesa Soler MAGNETIC GRINDER OPERATOR.DE ICER KIT ASSEMBLER Work Phone: [facility] Start: 02-14-2025 End: 02-14-2025 Follow-up encounter Lesa Soler APRN.DE ICER KIT ASSEMBLER Work Phone: [facility] Comment on above: ED Follow-up ([place] [facility] 02/06/2025 and [facility] ED 02/08/2025) Start: 02-08-2025 End: 02-08-2025 Emergency department patient visit PHYSICIAN [facility] Start: 02-06-2025 End: 02-06-2025 Emergency department patient visit Lesa Soler NP-C Work Phone: -Emergency Department Work Phone: Start: 11-18-2024 End: 11-18-2024 ambulatory GEMA SMALL Facility:[facility] Comment on above: Procreative manageme nt (Primary [...] 11-12-2024 End: 11-12-2024 Follow-up encounter Lesa Soler APRN.CNP Work Phone: [facility] Start: 11-08-2024 End: 11-08-2024 Telephone encounter Lesa Soler APRN.CNP Work Phone: [facility] Start: 11-08-2024 End: 11-08-2024 Patient encounter procedure Lesa Soler APRN.DE ICER KIT ASSEMBLER Work Phone: [facility] Comment on above: Type 2 diabetes kamlesh itus without complication, without long- term current use of insulin (HCC) (Primary Dx); Dyslipidemia; Hirsutism Start: 11-08-2024 End: 11-08-2024 ambulatory LESA SOLER Facility:[facility] Start: 11-03-2024 End: 11-03-2024 ambulatory LESA SOLER Facility:[facility] Start: 11-03-2024 End: 11-03-2024 Patient encounter procedure Keely Reddy APRN.DE ICER KIT ASSEMBLER Work Phone: [facility] Comment on above: URI, acute (Primary Dx) Start: 10-30-2024 End: 10-30-2024 ambulatory Staci Givens RD Nutrition Therapy Start: 10-30-2024 End: 10-30-2024 Nutrition therapy Staci Givens RD Nutrition Therapy Comment on above: Reassessment; Patien t Education Start: 10-13-2024 End: 10-17-2024 ambulatory Mario Monique MD Work Phone: OB/Gynecology Comment on above: Menstruation questio n Start: 09-30-2024 End: 09-30-2024 Emergency department patient visit Christos Esparza Facility:[facility] Start: 09-19-2024 End: 09-20-2024 Telephone encounter Lesa Soler APRN.CNP Work Phone: [facility] Comment on above: Results (labs) Start: 09-11-2024 End: 09-11-2024 ambulatory STACI GIVENS Facility:[facility] Start: 09-11-2024 End: 09-11-2024 Nutrition therapy Staci Givens RD Nutrition Therapy Comment on above: Dietary counseling ( Primary Dx); Type 2 diabetes mellitus without complication, without long-term current use of insulin (HCC); PCOS (polycystic ovarian syndrome) Start: 09-11-2024 End: 09-11-2024 Telemedicine consultation with patient Staci Tosha RD Nutrition Therapy Start: 09-11-2024 End: 09-11-2024 ambulatory LESA SOLER Facility:[facility] Start: 09-03-2024 End: 09-03-2024 ambulatory LESA SOLER Facility:[facility] Start: 09-03-2024 End: 09-03-2024 Patient encounter procedure Lesa Soler APRN.CNP Work Phone: [facility] Comment on above: Type 2 diabetes kamlesh itus without complication, without long- term current use of insulin (HCC) (Primary Dx); Chronic diarrhea; Early satiety; Chronic nausea Start: 08-28-2024 End: 08-28-2024 ambulatory MARIO MONIQUE Facility:[facility] Start: 08-28-2024 End: 08-28-2024 Patient encounter procedure Mario Monique MD Work Phone: OB/Gynecology Comment on above: Encounter for gyneco logical examination (general) (routine) without abnormal findings (Primary Dx); Screening for malignant neoplasm of cervix; PCOS (polycystic ovarian syndrome); Primary female infertility Start: 08-28-2024 End: 08-28-2024 Patient encounter status Mario Monique MD Work Phone: [facility] Work Phone: Start: 07-15-2024 End: 07-15-2024 Emergency department patient visit No Primary Care Physician Facility:[facility] Start: 03-28-2023 End: 03-30-2023 Emergency department patient visit [facility] Work Phone: Start: 10-04-2017 End: 10-04-2017 Ambulatory [facility] Procedures Date Procedure Procedure Detail Performing Clinician Start: 03-14-2025 Estimated creatinine clearance Lesa Soler REGIONAL ACCOUNT DIRECTOR-C Work Phone: Start: 02-06-2025 Methadone measuremen t, urine Lesa Trill REGIONAL ACCOUNT DIRECTOR-C Work Phone: Start: 02-06-2025 Estimated creatinine clearance Lesa Soler REGIONAL ACCOUNT DIRECTOR-C Work Phone: Start: 11-08-2024 Urine albumin quantitative Lesa Soler MAGNETIC GRINDER OPERATOR.DE ICER KIT ASSEMBLER Work Phone: Start: 11-03-2024 STREP A MOLECULAR (POC) Keely Reddy MAGNETIC GRINDER OPERATOR.DE ICER KIT ASSEMBLER Work Phone: Start: 03-29-2023 CT of abdomen and pe lvis without contrast Start: 03-28-2023 SARS-CoV-2 & FLU Ant igen (Rapid) Start: 02-28-2017 End: 02-28-2017 Dietary management education, guidance, and counseling Collette Curiel MD Start: 02-28-2017 End: 02-28-2017 Documentation of current medications Collette Curiel MD Plan of Treatment Date Care Activity Detail Author Start: 08-28-2029 Screening for malignant neoplasm of cervix Cervical Cancer Screening [facility] Start: 11-08-2025 Annual PCP Team Chronic Disease Visit Annual PCP Team Chronic Disease Visit [facility] Start: 11-08-2025 Hepatitis B screening Urine Albumin:Creatinine Ratio [facility] Start: 11-08-2025 Pneumococcal vaccination Pneumococcal Vaccine (1 of 2 - PCV) [facility] Comment on above: Postponed from 02/06/2012 (Declined at t his time) Start: 09-11-2025 Hepatitis B surface antibody level LDL Cholesterol [facility] Start: 09-03-2025 Annual PCP Team Chronic Disease Visit Annual PCP Team Chronic Disease Visit [facility] Start: 09-03-2025 Anxiety Screening Anxiety Screening [facility] Comment on above: Postponed from 2011 (Declined at t his time) Start: 09-03-2025 Covid-19 Vaccine ( season) Covid-19 Vaccine ( season) [facility] Comment on above: Postponed from 06/02/2024 (Declined at t his time) Start: 09-03-2025 Urine microalbumin profile DTaP,Tdap,Td Vaccine (1 - Tdap) [facility] Comment on above: Postponed from 02/06/2012 (Declined at t his time) Start: 08-29-2025 End: 08-29-2025 Patient encounter procedure 08/29/2025 8:45 AM EST Office Visit OB/Gynecology [address] [place], [place] [id number] [place] [address] [facility] [address] [place], [place] [id number] annual OB/Gynecology Comment on above: annual Start: 06-02-2025 Influenza vaccination Influenza Vaccine (Season Ended) [facility] Start: 03-31-2025 Influ[facility] Comment on above: Postponed from 06/02/2024 (Declined at t his time) Start: 03-21-2025 End: 10-17-2025 CBC panel - Blood by Automated count COMPLETE BLOOD COUNT Lab Routine Dyslipidemia Expected: 03/21/2025, Expires: 10/17/2025 [facility] Work Phone: Comment on above: Expected: 03/21/2025, Expires: Start: 03-21-2025 End: 10-17-2025 Comprehensive metabolic 2000 panel - Serum or Plasma COMPREHENSIVE METABOLIC PANEL Lab Routine Dyslipidemia Expected: 03/21/2025, Expires: 10/17/2025 [facility] Comment on above: Expected: 03/21/2025, Expires: Start: 03-21-2025 End: 06-20-2025 Lipid 1996 panel - Serum or Plasma LIPID PANEL, FASTING Lab Routine Dyslipidemia Expected: 03/21/2025, Expires: 06/20/2025 [facility] Comment on above: Expected: 03/21/2025, Expires: Start: 03-14-2025 [facility] Start: 03-12-2025 Hemoglobin A1c measurement HbA1C [facility] Start: 02-06-2025 [facility] Start: 11-18-2024 End: 02-17-2025 25-hydroxyvitamin D3 [Mass/volume] in Serum or Plasma VITAMIN D 25 HYDROXY Lab Routine Procreative management Expected: 11/18/2024, Expires: 02/17/2025 [facility] Comment on above: Expected: 11/18/2024, Expires: Start: 11-18-2024 End: 02-17-2025 ANTI MULLERIAN HORMONE ANTI MULLERIAN HORMONE Lab Routine Encounter for fertility testing Expected: 11/18/2024, Expires: 02/17/2025 [facility] Comment on above: Expected: 11/18/2024, Expires: Start: 11-18-2024 End: 02-17-2025 CBC panel - Blood by Automated count COMPLETE BLOOD COUNT Lab Routine PCOS (polycystic ovarian syndrome) Irregular bleeding Expected: 11/18/2024, Expires: 02/17/2025 [facility] Comment on above: Expected: 11/18/2024, Expires: Start: 11-18-2024 End: 02-17-2025 Chlamydia trachomatis+Neisseria gonorrhoeae DNA [Presence] in Unspecified specimen by MURALI with probe detection GONORRHEA/CHLAMYDIA NAAT Lab Routine Screen for STD (sexually transmitted disease) Expected: 11/18/2024, Expires: 02/17/2025 [facility] Comment on above: Expected: 11/18/2024, Expires: Start: 11-18-2024 End: 02-17-2025 Choriogonadotropin.bet a subunit [Units/volume] in Serum or Plasma HCG QUANTITATIVE Lab Routine PCOS (polycystic ovarian syndrome) Expected: 11/18/2024, Expires: 02/17/2025 [facility] Comment on above: Expected: 11/18/2024, Expires: Start: 11-18-2024 End: 02-17-2025 DHEA-S BLD DHEA-S BLD Lab Routine Encounter for fertility testing Expected: 11/18/2024, Expires: 02/17/2025 [facility] Comment on above: Expected: 11/18/2024, Expires: Start: 11-18-2024 End: 02-17-2025 Estradiol (E2) [Mass/volume] in Serum or Plasma ESTRADIOL-17B BLD Lab Routine Encounter for fertility testing Expected: 11/18/2024, Expires: 02/17/2025 [facility] Comment on above: Expected: 11/18/2024, Expires: Start: 11-18-2024 End: 02-17-2025 Hemoglobin A1c in Blood HEMOGLOBIN A1C Lab Routine Procreative management Expected: 11/18/2024, Expires: 02/17/2025 [facility] Comment on above: Expected: 11/18/2024, Expires: Start: 11-18-2024 End: 02-17-2025 Hepatitis B virus core Ab [Presence] in Serum HEPATITIS B CORE ANTIBODY TOTAL Lab Routine Screening for STD (sexually transmitted disease) Expected: 11/18/2024, Expires: 02/17/2025 [facility] Comment on above: Expected: 11/18/2024, Expires: Start: 11-18-2024 End: 02-17-2025 Hepatitis B virus surface Ag [Presence] in Serum HEPATITIS B SURFACE ANTIGEN Lab Routine Screening examination for STD (sexually transmitted disease) Expected: 11/18/2024, Expires: 02/17/2025 [facility] Comment on above: Expected: 11/18/2024, Expires: Start: 11-18-2024 End: 02-17-2025 Hepatitis C virus Ab [Presence] in Serum HEPATITIS C ANTIBODY IA WITH CONFIRMATION Lab Routine Screening examination for STD (sexually transmitted disease) Expected: 11/18/2024, Expires: 02/17/2025 [facility] Comment on above: Expected: 11/18/2024, Expires: Start: 11-18-2024 End: 02-17-2025 HIV 1+2 Ab [Presence] in Serum or Plasma by Immunoassay HIV 1/2 COMBO WITH REFLEX TO DIFFERENTIATION Lab Routine Screening examination for STD (sexually transmitted disease) Expected: 11/18/2024, Expires: 02/17/2025 [facility] Comment on above: Expected: 11/18/2024, Expires: Start: 11-18-2024 End: 02-17-2025 Progesterone [Mass/volume] in Serum or Plasma PROGESTERONE Lab Routine Encounter for fertility testing Expected: 11/18/2024, Expires: 02/17/2025 [facility] Comment on above: Expected: 11/18/2024, Expires: Start: 11-18-2024 End: 02-17-2025 Prolactin [Mass/volume] in Serum or Plasma PROLACTIN Lab Routine Encounter for fertility testing Expected: 11/18/2024, Expires: 02/17/2025 [facility] Comment on above: Expected: 11/18/2024, Expires: Start: 11-18-2024 End: 02-17-2025 RUBELLA IGG ANTIBODY RUBELLA IGG ANTIBODY Lab Routine Procreative management Expected: 11/18/2024, Expires: 02/17/2025 [facility] Comment on above: Expected: 11/18/2024, Expires: Start: 11-18-2024 End: 02-17-2025 SYPHILIS TREPONEMAL W/REFLEX SYPHILIS TREPONEMAL W/REFLEX Lab Routine Screening examination for STD (sexually transmitted disease) Expected: 11/18/2024, Expires: 02/17/2025 [facility] Comment on above: Expected: 11/18/2024, Expires: Start: 11-18-2024 End: 02-17-2025 Testosterone [Mass/volume] in Serum or Plasma TESTOSTERONE, TOTAL BY IMMUNOASSAY (ADULT MALES, OR INDIVIDUALS ON TESTOSTERONE THERAPY) Lab Routine Encounter for fertility testing Expected: 11/18/2024, Expires: 02/17/2025 [facility] Comment on above: Expected: 11/18/2024, Expires: Start: 11-18-2024 End: 02-17-2025 Thyrotropin [Units/volume] in Serum or Plasma THYROID STIMULATING HORMONE Lab Routine Encounter for fertility testing Expected: 11/18/2024, Expires: 02/17/2025 [facility] Comment on above: Expected: 11/18/2024, Expires: 5 Start: 11-18-2024 End: 02-17-2025 TYPE + SCREEN TYPE + SCREEN Blood Bank Routine Procreative management Expected: 11/18/2024, Expires: 02/17/2025 [facility] Work Phone: Comment on above: Expected: 11/18/2024, Expires: 5 Start: 11-18-2024 End: 11-18-2025 US Uterus and Fallopian tubes W saline IU SONOHYSTEROGRAPHY (SIS) US [facility] Anc Imaging Routine PCOS (polycystic ovarian syndrome) Encounter for fertility testing Irregular bleeding Expected: 11/18/2024, Expires: 11/18/2025 [facility] Comment on above: Expected: 11/18/2024, Expires: Start: 11-18-2024 End: 02-17-2025 VARICELLA ZOSTER IGG VARICELLA ZOSTER IGG Lab Routine Procreative management Expected: 11/18/2024, Expires: 02/17/2025 [facility] Comment on above: Expected: 11/18/2024, Expires: Start: 11-18-2024 End: 11-18-2024 Patient encounter procedure 11/18/2024 1:00 PM EST Office Visit [facility] [address] [place] [address] Gema Small PA-C [address] [place], [place] [id number] PCOS (polycystic ovarian syndrome) [E28.2] [facility] Comment on above: PCOS (polycystic ovarian syndrome) [E28. 2] Start: 11-08-2024 Depression Screening Depression Screening [facility] Comment on above: Postponed from 2011 (Declined at t his time) Start: 11-08-2024 End: 11-08-2024 Patient encounter procedure 11/08/2024 1:40 PM EST Office Visit [address] [address] Lesa Soler MAGNETIC GRINDER OPERATOR.DE ICER KIT ASSEMBLER [address] [place] [address] 6-8 WK F/U DM [facility] Comment on above: 6-8 WK F/U DM Start: 10-30-2024 End: 10-30-2024 Follow-up encounter 10/30/2024 8:00 AM EST Education Nutrition Therapy [address] [address] Staci Givens, RD [address] [place] [address] follow up Nutrition Therapy Comment on above: follow up Start: 10-22-2024 End: 10-22-2024 Patient encounter procedure 10/22/2024 1:00 PM EST Office Visit [facility] [address] [place] [address] Lesa Soler, MAGNETIC GRINDER OPERATOR.DE ICER KIT ASSEMBLER [address] [place] [address] 6-8 WK F/U DM [facility] Comment on above: 6-8 WK F/U DM Start: 10-22-2024 End: 10-22-2024 Follow-up encounter 10/22/2024 8:00 AM EST Education Nutrition Therapy [address] [address] Staci Givens, RD [address] [place] [address] follow up Nutrition Therapy Comment on above: follow up Start: 09-03-2024 End: 09-03-2024 Patient encounter procedure 09/03/2024 1:20 PM EST Office Visit [facility] [address] [place] [address] Lesa Soler, MAGNETIC GRINDER OPERATOR.DE ICER KIT ASSEMBLER [address] [place] [address] WebAppointment Request #[id number] [facility] Comment on above: WebAppointment Request #[id number] Start: 06-02-2024 Covid-19 Vaccine ( season) Covid-19 Vaccine ( season) [facility] Start: 06-02-2024 [facility]enza [facility] Start: 03-28-2023 Referral to service [facility] Start: 03-28-2023 End: 03-28-2023 Suicide precautions [facility] Start: 03-07-2017 End: 03-07-2017 Appointment Appointment [facility] [employer] Work Phone: Start: 02-28-2017 End: 02-28-2017 Appointment Appointment [facility] Work Phone: Start: 02-28-2017 End: 03-01-2017 Follow Up Appt Other Follow Up Appt Other [facility] Work Phone: Start: 02-28-2017 End: 02-28-2017 Uppr gi endoscopy, diagnosis Upper gastrointestinal endoscopy [facility] Work Phone: Start: 2014 Screening for malignant neoplasm of cervix Cervical Cancer Screening [facility] Start: 02-06-2012 Hepatitis B Vaccine (1 of 3 - 19+ 3-dose series) Hepatitis B Vaccine (1 of 3 - 19+ 3-dose series) [facility] Start: 02-06-2012 Pneumococcal vaccination Pneumococcal Vaccine (1 of 2 - PCV) [facility] Start: 02-06-2012 Urine microalbumin profile DTaP,Tdap,Td Vaccine (1 - Tdap) [facility] Start: 2011 Anxiety Screening Anxiety Screening [facility] Start: 2011 Depression Screening Depression Screening [facility] Start: 2011 Hepatitis C screening Hepatitis C Screening [facility] Start: 2011 HIV screening HIV Screening [facility] Start: 2003 Diabetic foot examination Diabetic Foot Exam [facility] Start: 2003 Glaucoma screening Dilated Retinal Exam [facility] Start: 2003 Hepatitis B screening Urine Albumin:Creatinine Ratio [facility] Start: 1999 Pneumococcal vaccination Pneumococcal Vaccine (1 of 2 - PCV) [facility] COVID & INFLUENZA A/ B & RSV PCR, ROUTINE COVID & INFLUENZA A/B & RSV PCR, ROUTINE Microbiology Routine URI, acute Ordered: 11/03/2024 [facility] Work Phone: Comment on above: Ordered: 11/03/2024 PAP TEST PAP TEST Lab Rou vi Screening for malignant neoplasm of cervix 08/28/2024 10:22 AM EST [facility] Work Phone: Patient Education [facility] Eddie Faulkner Work Phone: Patient referral [facility] Work Phone: End: 12-16-2025 RF Uterus and Fallopian tubes Views W contrast IU XR HYSTEROSALPINGOGRAM Radiology Routine Encounter for fertility testing H/O unilateral salpingectomy 1 Occurrences starting 11/18/2024 until 12/16/2025 [facility] Comment on above: 1 Occurrences starting 11/18/2024 until 12/16/2025 Payers Date Payer Category Payer Self-pay [id number] 2024 Medicaid [employer] Member [place] bscriber Plan / Payer (Effective 2024-Present) Name: Joshua Choudhary Relation to Subscriber: Self Name: Joshua Choudhary Payer ID: [id number] (NAIC) Group ID: Not on file Type: Medicaid Address: [address] [place] [address] [id number] 2024 Private Health Insurance [employer] MEDICAID [facility] [id number] 2024-Present [address] [place] [address] Medicaid [id number] 2024 Medicaid [id number] 2016 Unknown [facility] [id number] 1993 Unknown [id number] Unknown [facility] [id number] Unknown [facility] [id number] Unknown [id number] Unknown [id number] Unknown [id number] Unknown [id number] Social History Date Type Detail Facility Start: 03-28-2023 Tobacco smoking status TNIS Unknown if ever smoked [facility] Start: 01-09-2019 Alone [facility] Start: 1995 Sex Assigned At Female W [facility] Start: 08-28-2024 End: 02-06-2025 Tobacco smoking status NHIS Never smoked tobacco [facility] Start: 08-28-2024 Tobacco use and exposure Smokeless tobacco non-user [facility] Start: 08-28-2024 End: 11-27-2024 Alcoholic beverage intake Ex-drinker (finding) [facility] Start: 08-28-2024 End: 09-11-2024 History of Social function [facility] Start: 08-28-2024 End: 09-11-2024 Tobacco use panel [facility] National Score (1-100), lower number is lower risk 66 [facility] Start: 1995 Sex assigned at Not on file C [facility] Start: 03-14-2025 Tobacco smoking status TNIS Smokes tobacco daily (finding) [facility] NEGATED: Highlighted row [facility] Functional Status Date Assessment Result Facility 11-08-2014 Are you deaf, or do you have serious difficulty hearing No 11/08/2014 11:42 AM Charlene Rodas MA No [facility] 11-08-2014 Are you blind, or do you have serious difficulty seeing, even when wearing glasses No 11/08/2014 11:42 AM Charlene Rodas MA No [facility] 11-08-2014 Do you have serious difficulty walking or climbing stairs No 11/08/2014 11:42 AM Charlene Rodas MA No [facility] 11-08-2014 Do you have difficul ty dressing or bathing No 11/08/2014 11:42 AM Charlene Rodas MA No [facility] 11-08-2014 Because of a physica l, mental, or emotional condition, do you have difficulty doing errands alone such as visiting a physician's office or shopping No 11/08/2014 11:42 AM Charlene Rodas MA No [facility] Mental Status Date Assessment Result Facility 11-08-2014 Because of a physica l, mental, or emotional condition, do you have serious difficulty concentrating, remembering, or making decisions No 11/08/2014 11:42 AM Charlene Rodas MA No [facility] Clinical Notes 03-28-2023 to 03-21-2025 Telephone Encounter - Myra Duran MA - 03/21/2025 11:06 AM EDTTelephone Encounter - Myra Duran MA - 03/21/2025 11:06 AM EDTTelephone Encounter - Myra Duran MA - 03/21/2025 8:32 AM EDT Note Date & Type Note Facility 03-21-2025 Telephone encount er Note Left message informing patient, phone number to reach the office was left for any questions or concerns. Myra Duran MA [facility] 03-21-2025 Miscellaneous Notes Formattin g of this note might be different from the original. Left message informing patient, phone number to reach the office was left for any questions or concerns. Myra Duran MA Addended by: LESA SOLER on: 03/21/2025 10:13 AM Modules accepted: Orders Thank you. Please see orders. Lesa Soler APRN.PAOLA Nitza Duran MA documented in this encounter [facility] 03-21-2025 Note Addended by: LESA SOLER on: 03/21/2025 10:13 AM Modules accepted: Orders [facility] 03-21-2025 Telephone encount er Note Thank you. Please see orders. Lesa Soler APRN.DE ICER KIT ASSEMBLER [facility] 03-21-2025 Telephone encount er Note Nitza Duran MA [facility] 03-18-2025 Note HNO ID: [id number] Author: NAMOIE MCGUIRE LPN Service: ? Author Type: LICENSED NURSE Type: Progress Notes Filed: 03/18/2025 10:35 Note Text: ED Follow-Up Note Provider Action / FYI: Call completed by: SHAISTA Patient seen in ED: Out of Network ED Contact made with Patient: No, left message. Naomie Mcguire LPN March 18, 2025 10:35 AM [facility] 03-18-2025 History of Presen t illness Narrative ED Follow-Up Note Provider Action / FYI: Call completed by: SHAISTA Patient seen in ED: Out of Network ED Contact made with Patient: No, left message. Naomie Mcguire LPN March 18, 2025 10:35 AM documented in this encounter [facility] 03-18-2025 Note Patient Outreach (AG FAMPLE) KENRICKJOSHUA Zavala ([id number]) 1995 F Date Time Provider Department 03/18/25 LESA SOLER During your visit today, we recorded the following information about you: Naomie Mcguire LPN 03/18/2025 10:35 AM Signed ED Follow-Up Note Provider Action / FYI: Call completed by: SHAISTA Patient seen in ED: Out of Network ED Contact made with Patient: No, left message. Naomie Mcguire LPN March 18, 2025 10:35 AM Allergies As of Date: 03/18/2025 (No Known Allergies) Date Reviewed: 11/27/2024 Reviewed by: Lesa Soler APRN.DE ICER KIT ASSEMBLER - Fully Assessed Reason for Visit: ED Follow-up [821] Cmt: [facility] 03/14/2025 Prescriptions as of 03/18/2025 - venlafaxine (EFFEXOR) 75 mg tablet Take 75 mg by mouth once daily. Taking 112 mg a day Problem List As Of Date 03/18/2025 Noted Resolved Abdominal pain, epigastric [R10.13] 05/16/2017 Gallstones [K80.20] 08/28/2017 RUQ pain [R10.11] 09/28/2017 Type 2 diabetes mellitus without complication, *09/03/2024 Anxiety [F41.9] 09/22/2024 Polycystic ovarian syndrome [E28.2] 02/28/2017 Secondary amenorrhea [N91.1] 09/22/2024 Suicidal ideation [R45.851] 09/22/2024 Chronic diarrhea [K52.9] 09/22/2024 Dyslipidemia [E78.5] 11/08/2024 Hirsutism [L68.0] 11/27/2024 Encounter Status:Closed by NAOMIE MCGUIRE on 03/18/25 [facility] 02-14-2025 Note HNO ID: [id number] Author: NAOMIE MCGUIRE LPN Service: ? Author Type: LICENSED NURSE Type: Progress Notes Filed: 02/14/2025 11:01 Note Text: ED Follow-Up Note Provider Action / FYI: Call completed by: SHAISTA Patient seen in ED: Out of Network ED Contact made with Patient: No, left message. Naomie Mcguire LPN February 14, 2025 11:00 AM [facility] 02-14-2025 History of Presen t illness Narrative ED Follow-Up Note Provider Action / FYI: Call completed by: SHAISTA Patient seen in ED: Out of Network ED Contact made with Patient: No, left message. Naomie Mcguire LPN February 14, 2025 11:00 AM documented in this encounter [facility] 02-14-2025 Note Patient Outreach (AG FAMPLE) JOSHUA CHOUDHARY ([id number]) 1995 F Date Time Provider Department 02/14/25 [...] Allergies) Date Reviewed: 11/27/2024 Reviewed by: Lesa Soler, MAGNETIC GRINDER OPERATOR.DE ICER KIT ASSEMBLER - Fully Assessed Reason for Visit: ED Follow-up [821] Cmt: [facility] 02/06/2025 and [facility] ED 02/08/2025 Prescriptions as of 02/14/2025 [...] Encounter Status:Closed by NAOMIE MCGUIRE on 02/14/25 [facility] 02-06-2025 Discharge summary Note Date/Time February 06, 2025 1:47pm [facility] Medical Records Department [address] [place] [address] Emergency Department Summary 02/06/25 MR#: [id number] Acct: [id number] Name: JOSHUA CHOUDHARY Rep #:[id number] : 1995 30 From: Juan Tapia MD [...] states she wants her panic to stop. [facility] Medical History Anxiety disorder Cannabis use disorder [...] 0 current occupational status: employed current occupation: [employer] Smoking Status: Never smoker Smokeless [...] 82.8 H Lymph % (Auto) 13.9 L [place] % (Auto) 2.3 Eos % (Auto) 0.0 [...] Lesa Soler NP Referrals: Lesa Soler NP, REGIONAL ACCOUNT DIRECTOR-C [Primary Care Provider] - 3-5 Days if not improving Activity Restrictions/Additional Instructions: Follow-up with your psychiatrist as well. Return to the emergency department with new or worsening symptoms. Print Language: Bahamian Disposition Disposition: Home, Self Care What to do if you have Problems For any increased pain, shortness of breath, bleeding, nausea or vomiting, chestpain, or any unexpected problems, contact your Primary Care Provider. Call [facility] ([phone]) or report to the closest Emergency Room. Call 911 if necessary. 02/06/25 1347 <Electronically signed by Juan Tapia MD> Cosigner Signature (if applicable): CC: FREDY Soler ~ Signed [facility] Work Phone: 1(496) 442-897505-08-2025 Discharge summary [facility] Medical Records Department [address] [place] [address] Emergency Department Summary 02/06/25 MR#: [id number] Acct: [id number] Name: JOSHUA CHOUDHARY Rep #:[id number] : 1995 30 From: Juan Tapia MD [...] states she wants her panic to stop. [facility] Medical History Anxiety disorder Cannabis use disorder [...] 0 current occupational status: employed current occupation: [employer] Smoking Status: Never smoker Smokeless [...] 82.8 H Lymph % (Auto) 13.9 L [place] % (Auto) 2.3 Eos % (Auto) 0.0 [...] Lesa Soler NP Referrals: Lesa Soler NP, REGIONAL ACCOUNT DIRECTOR-C [Primary Care Provider] - 3-5 Days if not improving Activity Restrictions/Additional Instructions: Follow-up with your psychiatrist as well. Return to the emergency department with new or worsening symptoms. Print Language: Bahamian Disposition Disposition: Home, Self Care What to do if you have Problems For any increased pain, shortness of breath, bleeding, nausea or vomiting, chestpain, or any unexpected problems, contact your Primary Care Provider. Call [facility] ([phone]) or report tothe closest Emergency Room. Call 911 if necessary. 02/06/25 5632 Cosigner Signature (if applicable): CC: FREDY Soler ~ Signed [facility]02-17-2025 NoteHNO ID: [id number] Author: GEMA SMALL PA-C Service: ? Author Type: Physician Desktop Publisher Type: Progress Notes Filed: 11/18/2024 14:42 Note [...] visit. Either the patient or their legal treasury representative has been informed of the risks [...] requesting physician via US mail. Mario Monique [id number] [facility] [id number] CHIEF COMPLAINT: Procreative management and counseling HISTORY OF PRESENT ILLNESS Joshua Choudhary is a 29 year old female for 5-6 years.Together for 10. Little protection for 10 years, actively TTC for 2-3 years. Not sure if she wants a child at this time. Would like to conceive in 2 years. 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 Mainly wishes to investigate the PCOS [...] methods. Would like to have one child. 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 11-18-2024 History of Present illness Narrative* [...] requesting physician via US mail. Mario Monique [id number] [facility] [address] CHIEF COMPLAINT: Procreative management and counseling HISTORY OF PRESENT ILLNESS Joshua Choudhary is a 29 year old female for 5-6 years.Together for 10. Little protection for 10 years, actively TTC for 2-3 years. Not sure if she wants a child at this time. Would like to conceive in 2 years. 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 Mainly wishes to investigate the PCOS [...] methods. Would like to have one child. 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 documented [facility] encounter[facility] Telephone encounter Note * Telephone Encounter - Gloria Evans MA - 11/12/2024 10:27 AM EST Lm on pt. Vm with results. Gloria Evans MA [facility]02-11-2025 Telephone encounter Note* Telephone Encounter - Gloria Evans MA - 11/12/2024 10:27 AM EST ----- Message from Lesa Soler APRN.DE ICER KIT ASSEMBLER sent at 11/12/2024 8:57 AM EST ----- Please notify patient results are normal. Thank you. Lesa Soler APRN.DE ICER KIT ASSEMBLER [facility]02-11-2025 Miscellaneous Notes* Telephone Encounter - Gloria Evans MA - 11/12/2024 10:27 AM EST Lm on pt. Vm with results. Gloria Evans MA * Telephone Encounter - Gloria Evans MA - 11/12/2024 10:27 AM EST ----- Message from Lesa Soler APRN.DE ICER KIT ASSEMBLER sent at 11/12/2024 8:57 AM EST ----- Please notify patient results are normal. Thank you. Lesa Soler APRN.DE ICER KIT ASSEMBLER documented in this encounterC[facility] Telephone encounter Note * Telephone Encounter - Gloria Evans MA - 11/08/2024 2:15 PM EST Per pt. She is requesting number to glenmora sent to my chart. Gloira Evans MA [facility]02-07-2025 Miscellaneous Notes* Telephone Encounter - Gloria Evans MA - 11/08/2024 2:15 PM EST Per pt. She is requesting number to apex sent to my chart. Gloria Evans MA documented in this encounterCleveland [facility]02-[facility]-2025 NoteHNO ID: [id number] Author: LESA SOLER APRN.DE ICER KIT ASSEMBLER Service: ? Author Type: Nurse Practitioner Type: [...] changed her diet a lot Saw the grips Made a big difference Was able to develop hunger again and more frequently Still losing weight No more diarrhea Increased movement Going to college - [employer] Walking a lot more Doing EMDR therapy [...] EGD LAPAROSCOPY SURG CHOLECYSTECTOMY 10/04/2017 Cholecystectomy, lap Mckenzie PAST SURGICAL HISTORY OF Right 2014 rght [...] HENT: Head: Normocephalic and atraumatic. Mouth/Throat: Lips: [place]. Eyes: General: Lids are normal. Extraocular Movements: [...] 30.5 - 36.0 g/d (more content not included)...[facility] 11-08-2024 History of Present illness Narrative* Lesa Soler APRN.DE ICER KIT ASSEMBLER - 11/08/2024 1:41 PM EST Subjective Joshua Choudhary is a 29 year old female here today for diabetes follow-up. I reviewed past medical, surgical, social, and family histories today and updated chart. Allergies, chronic medications, and supplements were also reviewed. HPI Patient has type 2 diabetes, well controlled with diet She has changed her diet a lot Saw the grips Made a big difference Was able to develop hunger again and more frequently Still losing weight No more diarrhea Increased movement Going to college - [employer] Walking a lot more Doing EMDR therapy [...] EGD LAPAROSCOPY SURG CHOLECYSTECTOMY 10/04/2017 Cholecystectomy, lap Mckenzie PAST SURGICAL HISTORY OF Right 2014 rght [...] HENT: Head: Normocephalic and atraumatic. Mouth/Throat: Lips: [place]. Eyes: General: Lids are normal. Extraocular Movements: [...] dermatology - CONSULT TO DERMATOLOGY Lesa Soler APRN.PAOLA documented in this encounterC[facility] History of Present illness Narrative* Keely [...] history is provided by the patient. No full time staff interpreter was used. URI She complains of cough. [...] EGD LAPAROSCOPY SURG CHOLECYSTECTOMY 10/04/2017 Cholecystectomy, lap Mckenzie PAST SURGICAL HISTORY OF Right 2014 rght [...] A/B & RSV PCR, ROUTINE Keely Reddy APRN.DE ICER KIT ASSEMBLER documented in this encounterCleveland [facility]02-02-2025 NoteHNO ID: [id number] Author: KEELY REDDY APRN.PAOLA Service: ? Author Type: Nurse Practitioner [...] history is provided by the patient. No full time staff interpreter was used. URI She complains of cough. [...] EGD LAPAROSCOPY SURG CHOLECYSTECTOMY 10/04/2017 Cholecystectomy, lap Mckenzie PAST SURGICAL HISTORY OF Right 2014 rght [...] is no distension. Palpatio (more content not included)...[facility]01-29-2025 Instructions* Patient Instructions* Staci Givens RD - 10/30/2024 8:21 AM EST Continuous previous recommendations AND Ensure protein at breakfast Try sliced chicken breast instead of wings, don't eat chicken skin Add in regular exercise, add 30 min 4 days per week documented in this encounterCleveland Clinic [facility]01-29-2025 NoteHNO ID: [id number] Author: STACI GIVENS RD Service: ? Author Type: Registered Dietitian Type: Progress Notes Filed: 10/30/2024 08:26 Note Text: [facility] Nutrition Therapy: Virtual Consult - Re-assessment I have communicated my name and active licensure. The patient?s identity and physical location were verified at the time of this visit. Either the patient or their legal treasury representative has been informed of the risks [...] Choudhary DATE: October 30, 2024 TIME: 8:00 [facility]01-29-2025 History of Present illness Narrative* Staci Givens RD - 10/30/2024 8:01 AM EST [facility] Nutrition Therapy: Virtual Consult - Re-assessment I have communicated my name and active licensure. The patient s identity and physical location wereverified at the time of this visit. Either the patient or their legal treasury representative has been informed of the risks [...] 2024 TIME: 8:00 AM documented in this encounterCleveland [facility]01-29-[facility]25 NoteEducation (NUTRMM) KENRICKJOSHUA ([id number]) 1995 F Date Time Provider Department 10/30/24 [...] Allergies) Date Reviewed: 10/30/2024 Reviewed by: Staci Givens, RD - Fully Assessed Prescriptions as of 10/30/2024 - venlafaxine (EFFEXOR) 75 mg tablet Take 75 mg by mouth once daily. Encounter Status:Closed by STACI GIVENS on 10/30/24[facility]12-19-2024 Telephone encounter Note* Telephone Encounter - Lesa Soler APRN.DE ICER KIT ASSEMBLER - 09/19/2024 11:06 PM EST Please notify [...] Patient may choose to take fish oil [id number]. Recheck cholesterol in 6 months. Thank you Lesa Soler APRN.DE ICER KIT ASSEMBLER [facility]12-19-2024 Miscellaneous Notes* Telephone Encounter - Lesa [...] Patient may choose to take fish oil [id number]-[id number]. Recheck cholesterol in 6 months. Thank you Lesa Soler APRN.PAOLA documented in this encounterCleveland Clinic [facility]12-11-2024 Instructions* Patient Instructions* Staci Givens, CARLOS - 09/11/2024 2:16 PM EST 1. Follow [...] such as Crystal Light , flavored water, Ghmep4X , Minute [place]id light lemonade, Propel ) 5. Increase exercise to at least 30 min cardio 5 days per week or as tolerated; add in weight resistance exercise, preferably 2-3 days per week Consider a B complex and a vit D supplement documented in this encounterCleveland Clinic [facility]12-11-2024 NoteHNO ID: [id number] Author: STACI GIVENS RD Service: ? Author Type: Registered Dietitian Type: Progress Notes Filed: 09/11/2024 14:22 Note Text: [facility] Nutrition Therapy: Virtual Consult - Initial Assessment I have communicated my name and active licensure. The patient?s identity and physical location were verified at the time of this visit. Either the patient or their legal treasury representative has been informed of the risks [...] only such as Crystal Light?, flavored water, Ylbqe1F?, Minute Maid? light lemonade, Propel?) 5. Increase [...] Education Materials Provided: Healthy Lunch/Dinner Plate and 5423-8291 Calorie Partial Liquid Protein Diet READINESS TO [...] Choudhary DATE: September 11, 2024 TIME: 1:46 [facility]12-11-2024 History of Present illness Narrative* Staci Givens RD - 09/11/2024 1:43 PM EST [facility] Nutrition Therapy: Virtual Consult - Initial Assessment I have communicated my name and active licensure. The patient s identity and physical location wereverified at the time of this visit. Either the patient or their legal treasury representative has been informed of the risks [...] such as Crystal Light , flavored water, Clxxb3N , [place] light lemonade, Propel ) [...] Education Materials Provided: Healthy Lunch/Dinner Plate and 7604-9804 Calorie Partial Liquid Protein Diet READINESS TO [...] 2024 TIME: 1:46 PM documented in this encounterCleveland [facility]12-03-2024 NoteHNO ID: [id number] Author: LESA SOLER APRN.DE ICER KIT ASSEMBLER Service: ? Author Type: Nurse Practitioner Type: Progress Notes Filed: 09/22/2024 00:58 Note Text: Subjective Joshua Choudhary is a 29 year old female here today for establish care. I reviewed past medical, surgical, social, and family histories today and updated chart. Allergies, chronic medications, and supplements were also reviewed. 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 - Dr Monique Pap test completed Looking in to fertility treatment for 6 years - tried for good 2 years, still not using BC Right fallopian tube removed age 17 Depression - she is seeing counselor and psychiatrist, Dr Marybel Ortiz [facility] Counselor Joshua Zazueta at [facility], will be starting EDMR Hx childhood trauma [...] EGD LAPAROSCOPY SURG CHOLECYSTECTOMY 10/04/2017 Cholecystectomy, lap Mckenzie PAST SURGICAL HISTORY OF Right 2014 rght [...] Objective BP 108/62 Pu (more content not included)...[facility] 09-03-2024 History of Present illness Narrative* Lesa Soler, [facility] - 09/03/2024 1:41 PM EST Subjective Joshua Choudhary is a 29 year old female here today for establish care. I reviewed past medical, surgical, social, and family histories today and updated chart. Allergies, chronic medications, and supplements were also reviewed. 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 - Dr Monique Pap test completed Looking in to fertility treatment for 6 years - tried for good 2 years, still not using BC Right fallopian tube removed age 17 Depression - she is seeing counselor and psychiatrist, Dr Marybel Ortiz [address] Counselor Joshua Zazueta at [facility], will be starting EDMR Hx childhood trauma CPSD responses Having official testing for ADHD Panic disorder Has been focusing on mental health this whole past year Hasn't been able to work this past year She was hospitalized - [facility] x 1 week Just started new medication 1 week ago - can't recall name of it No family history of thyroid cancer No hx pancreatitis Does not drink alcohol PAST MEDICAL HISTORY Diagnosis Date Cholelithiases PAST SURGICAL HISTORY Procedure Laterality Date COLONOSCOPY FLX DX W/COLLJ SPEC WHEN PFRMD 07/03/2018 Colonoscopy ESOPHAGOGASTRODUODENOSCOPY TRANSORAL DIAGNOSTIC 07/03/2018 EGD LAPAROSCOPY SURG CHOLECYSTECTOMY 10/04/2017 Cholecystectomy, lap Mckenzie PAST SURGICAL HISTORY OF Right 2014 rght [...] HENT: Head: Normocephalic and atraumatic. Mouth/Throat: Lips: [place]. Eyes: General: Lids are normal. Extraocular Movements: [...] 787.02, ICD10: R11.0 - LIPASE Lesa Soler APRN.DE ICER KIT ASSEMBLER documented in this encounterCleveland Clinic [facility]11-27-2024 NoteHNO ID: [id number] Author: MARIO MONIQUE MD Service: ? Author [...] EGD LAPAROSCOPY SURG CHOLECYSTECTOMY 10/04/2017 Cholecystectomy, lap Mckenzie PAST SURGICAL HISTORY OF Right 2014 rght [...] skin retraction. Allergies and current medication updated:Yes Routeman present EXAM: BP 108/71 Pulse 72 Ht 5' 6 (1.68m) Wt 208 lb (94.3kg) LMP 06/28/2024 BMI 33.59 kg/(m2). GENERAL: In no apparent distress HEENT: Normocephalic, BREAST: soft, non-tender, symmetric, no dominant mass, normal nipple-areolar complex, no lymphadenopathy, and no nipple discharge CHEST: Normal inspiratory effort ABDOMEN: soft, non-tender, and no masses PELVIC: external genitalia normal, normal Bartholin's glands, urethra, Thayne's glands, no vulvar lesions, no cervical lesions, [...] discussed with the Patient or Patient's Authorized Electronic Scale Tester. As applicable, any other physician, advance practice provider, medical student, or other health professional student that will be observing or involved in the sensitive examination for educational or training purposes was discussed with the Patient or Authorized Electronic Scale Tester. The Patient or Authorized Electronic Scale Tester has agreed to proceed with the sensitive examination. (Sensitive examination includes inspection and/or palpation of the breasts, pelvis, prostate and anorectal regions)[facility]11-27-2024 History of Present illness Narrative* Mario [...] EGD LAPAROSCOPY SURG CHOLECYSTECTOMY 10/04/2017 Cholecystectomy, lap Mckenzie PAST SURGICAL HISTORY OF Right 2014 rght [...] skin retraction. Allergies and current medication updated:Yes Routeman present EXAM: BP 108/71 Pulse 72 Ht 5' 6 (1.68m) Wt 208 lb (94.3kg) LMP 06/28/2024 BMI 33.59 kg/(m^2). GENERAL: In no apparent distress HEENT: Normocephalic, BREAST: soft, non-tender, symmetric, no dominant mass, normal nipple-areolar complex, no lymphadenopathy, and no nipple discharge CHEST: Normal inspiratory effort ABDOMEN: soft, non-tender, and no masses PELVIC: external genitalia normal, normal Bartholin's glands, urethra, Thayne's glands, no vulvar lesions, no cervical lesions, [...] discussed with the Patient or Patient's Authorized Electronic Scale Tester. Asapplicable, any other physician, advance practice provider, medical student, or other health professional student that will be observing or involved in the sensitive examination for educational or training purposes was discussed with the Patient or Authorized Electronic Scale Tester. The Patient or Authorized Electronic Scale Tester has agreed to proceed with the sensitive examination. (Sensitive examination includes inspection and/or palpation of the breasts, pelvis, prostate and anorectal regions) documented in this encounterCleveland Clinic [facility]06-27-2023 Discharge summary Author Andres Loyola [facility] March 30, 2023 10:03am Note Date/Time March 28, 2023 11:0 1am [facility] Medical Records Department [address] [place] [address] Emergency Department Summary 03/28/23 MR#: [id number] Acct: [id number] Name: JOSHUA CHOUDHARY Rep #:[id number] : 1995 28 From: Ry Hernandez PCP: Care Physician,No Primary Status :REG ER Location: ED ADDENDUM by Dr. Andres Loyola DO on 03/30/23 at 1003 Patient accepted to [facility] under service Dr. Price. Awaiting transfer. Noissues on morning shift. Patient was status post Ativan early this morning due to anxiety from [...] at 2307 Patient care was transferred to ne at the beginning of my shift, 1400. Patient is awaiting bed assignment at [facility]. There was concern because of leukocytosis. The experimental flight test mechanic at [facility] demanded a CAT scan of the abdomen. [...] [facility] shift. [facility] 03/29/23 2307<Electronically signed by Christos Esparza MD> Cosigner Signature (if applicable): cc: No Primary Care Physician ~* Signed ADDENDUM by Dr. Andres Loyola DO on 03/29/23 at 1527 He received callback from psychiatric facility who requested a CT scan abdomen pelvis after discussing with her experimental flight test mechanic due to her leukocytosis. Also requested urinary [...] per nursing. She has been medically cleared. [place] slip was filled out by myself as requested by evaluating facility. Awaiting disposition. 03/29/23 1105<Electronically signed by Andres Pedroza> Cosigner Signature (if applicable): cc: No Primary Care Physician ~* Signed ADDENDUM by Dr. Ry James DO on 03/28/23 at 1640 EKG was ordered to assess for QT prolongation. On my independent interpretation, it shows a normal sinus rhythm with a rate of 63. [place] interval was 162 ms. QRS interval was 90 ms. QTc interval was normal at 425 ms. [place] was normal. There are no acute ST [...] nausea and vomiting due to the anxiety. [facility] Medical History PCOS (polycystic ovarian syndrome) Home [...] 0 current occupational status: employed current occupation: [employer] Smoking Status: Never smoker Smokeless [...] (Auto) 70.3 H Lymph % (Auto) 22.0 [place] % (Auto) 4.3 Eos % (Auto) 1.8 [...] Color Urine Clarity Urine pH Ur Specific [place] Urine Protein Urine Glucose (UA) Urine Ketones [...] (Auto) Neut % (Auto) Lymph % (Auto) [place] % (Auto) Eos % (Auto) Baso % (Auto) Absolute Neuts (auto) Absolute Lymphs (auto) Nucleated RBC % Sodium Potassium Chloride Carbon Dioxide Anion Gap BUN Creatinine Estim Creat Clear Calc Est GFR (MDRD) Af Amer Est GFR (MDRD) Non-Af BUN/Creatinine Ratio Glucose Calcium Serum , Qual NEGATIVE Urine Color Straw Urine Clarity Clear Urine pH 8.0 Ur Specific [place] 1.015 Urine Protein 30 H Urine Glucose [...] Ethyl Alcohol Management Discussion w/another healthcare provider: derrick worker/Case management Treatment and Re-Evaluation Narrative: Patient [...] will likely need to be transferred to [facility]. Care of the patient will be turned [...] your Primary Care Provider. Call [facility] ([phone]) or report to the closest Emergency Room. Call 911 if necessary. 03/28/23 9462 <Electronically signed by Ry James DO> Cosigner Signature (if applicable): CC: No Primary Care Physician ~ Signed [facility] Work Phone: Evaluation noteNo assessment information available [facility] Work Phone: Evaluation note* Diagnosis Encounter for gynecological examination (general) (routine) without abnormal findings- Primary Screening for malignant neoplasm of cervix Screening for malignant neoplasm of the cervix PCOS (polycystic ovarian syndrome) Polycystic ovaries Primary female infertility Female infertility of unspecified origin [facility] Diagnosis Dietary counseling- Primary Dietary surveillance and counseling Type 2 diabetes mellitus without complication, without long-term current use of insulin (HCC) PCOS (polycystic ovarian syndrome) Polycystic ovaries documented in this encounter [facility] note* Diagnosis Type 2 diabetes mellitus without complication, without long-term current use of insulin (HCC)- Primary Chronic diarrhea Diarrhea Early satiety Chronic nausea Nausea alone documented in this encounter [facility] note* Diagnosis Type 2 diabetes mellitus without complication, without long-term current use of insulin ([facility])- Primary Dietary counseling Dietary surveillance and counseling PCOS (polycystic ovarian syndrome) Polycystic ovaries Obesity, Class I, BMI 30-34.9 Obesity, unspecified documented in this encounter [facility] note* Diagnosis URI, acute- Primary Acute upper respiratory infections of unspecified site documented in this encounter [facility] note* Diagnosis Procreative management- Primary Unspecified procreative [...] to other organs documented in this encounter [facility] note* Diagnosis Type 2 diabetes mellitus without complication, without long-term current use of insulin ([facility])- Primary Dyslipidemia Other and unspecified hyperlipidemia Hirsutism documented in this encounter [facility] note* Diagnosis Dyslipidemia- Primary Other and unspecified hyperlipidemia [facility] Additional Instructions Follow-up with your psychiatrist as well. Return to the emergency department with new or worsening symptoms.[facility] Work Phone: Hospital Discharge instructions Additional Instructions test negative. Electrolytes normal. Continue oral fluids for hydration. Take medicines as prescribed. Follow-up with your doctor.[facility] Work Phone: Reason for referral (narrative)No reason for referral information availableWMercy Health St. [facility] Work Phone: Summary Purpose Family History No Family History Records Found Relationship Condition Age at Onset Recorded Date/T tegan mother Malignant neoplasm Unknown Advance Directives No Advanced Directives Records Found Advance Directive Response Recorded Date/ Time Advance Directives No March 20 14 11:23am Living Will No March 28, 2023 9:13am Power of Accounts Payable Specialist No March 28 9:13am Advance Directive Response Recorded Date/ Time Do you have a Healthcare Power of Accounts Payable Specialist? No February 06, 2025 9:45am Advance Directives No March 20 14 11:23am Advance Directive Response Recorded Date/ Time Do you have a Healthcare Power of Accounts Payable Specialist? No February 06, 2025 9:45am Do you have a Healthcare Power of Accounts Payable Specialist? No March 14, 2025 8:06pm Advance Directives No March 20 11:23am Chief Complaint and Reason for Visit Chief Complaint PANIC ATTACK Chief Complaint Admit Date panic attack February 06, 2025 9:37am Chief Complaint Admit Date panic attack February 06, 2025 9:37am anxiety March 14, 2025 7:37 pm Reason for Referral Specialty Diagnoses / Procedures Referred By Contac t Referred To Contact Diagnoses PCOS (polycystic ovarian syndrome) Primary female infertility Procedures CONSULT TO INFERTILITY CLINIC OFFICE/OUTPATIENT [facility] [address] [place] [address] [place] [address] Referral ID Status Reason Start Date Expiration Date Visits Requested Visits Authorized [id number] Authorized PCP Requested Referral Auto-Generate d Referral 08/28/2025 1 1 Specialty Diagnoses / Procedures Referred By Contact Referred To Contact Gastroenterology / [facility] DEPARTMENT Diagnoses Chronic diarrhea Procedures CONSULT TO GASTROENTEROLOGY OFFICE/OUTPATIENT [facility] 60 MINUTES Lesa Soler, MAGNETIC GRINDER OPERATOR.DE ICER KIT ASSEMBLER [address] [place] [address] [facility] [address] [place] [address] Referral ID Status Reason Start Date Expiration Date Visits Requested Visits Authorized [id number] Authorized PCP Requested Referral 09/03/2024 09/03/2025 1 1 Specialty Diagnoses / Procedures Referred By Contac t Referred To Contact [facility] / [facility] [place] [facility] Diagnoses Type 2 diabetes mellitus without complication, without long-term current use of insulin (HCC) Procedures CONSULT TO NUTRITION THERAPY MEDICAL NUTRITION ASSMT&IVNTJ INDIV EACH 15 HI Lesa Soler APRN.DE ICER KIT ASSEMBLER [address] [place] [address] [facility] [address] [place] [address] Referral ID Status Reason Start Date Expiration Date Visits Requested Visits Authorized [id number] Authorized PCP Requested Referral 09/03/2024 09/03/2025 1 4 Additional Source Comments INFORMATION SOURCE (unrecogn ized section and content) DATE CREATED AUTHOR 03/27/2018 [facility] DATE CREATED AUTHOR AUTHOR'S ORGANIZ ATION 11/19/2024 [facility] DATE CREATED AUTHOR AUTHOR'S ORGANIZ ATION 02/15/2025 [facility] DATE CREATED AUTHOR AUTHOR'S ORGANIZ ATION 03/23/2025 [facility] DATE CREATED AUTHOR AUTHOR'S ORGANIZ ATION 03/24/2025 [facility] Care Teams (unrecognized sec tion and content) Team Status: Active Member Role Status Dates Dr. Ry Adler MD Family Provider Active No Primary Care Physician Primary Care Provider Active Team Status: Inactive Member Role Status Dates Dr. Ry James DO Emergency Provider Active No Primary Care Physician Primary Care Provider Active Liner Checker Relationship Specialty Start Date End Date Ry Adler MD [address] [place] [id number] PCP - General Family Medicine 07/03/18 Liner Checker Relationship Specialty Start Date End Date Lesa Soler APRN.DE ICER KIT ASSEMBLER [address] [place] [id number] PCP - General Family Medicine 09/03/24 Liner Checker Relationship Specialty Start Date End Date Lesa Soler APRN.DE ICER KIT ASSEMBLER [address] [place] [address] PCP - General Family Medicine 09/03/24 Liner Checker Relationship Specialty Start Date End Date Lesa Soler MAGNETIC GRINDER OPERATOR.DE ICER KIT ASSEMBLER [address] [place] [address] PCP - General Family Medicine 09/03/24 Liner Checker Relationship Specialty Start Date End Date Lesa Soler MAGNETIC GRINDER OPERATOR.DE ICER KIT ASSEMBLER [address] [place] [address] PCP - General Family Medicine 09/03/24 Liner Checker Relationship Specialty Start Date End Date Lesa Soler MAGNETIC GRINDER OPERATOR.DE ICER KIT ASSEMBLER [address] [place] [address] PCP - General Family Medicine 09/03/24 Liner Checker Relationship Specialty Start Date End Date Lesa Soler MAGNETIC GRINDER OPERATOR.DE ICER KIT ASSEMBLER [address] [place] [address] PCP - General Family Medicine 09/03/24 Liner Checker Relationship Specialty Start Date End Date Lesa Soler APRN.DE ICER KIT ASSEMBLER [address] [place] [address] PCP - General Family Medicine 09/03/24 Liner Checker Relationship Specialty Start Date End Date Lesa Soler MAGNETIC GRINDER OPERATOR.DE ICER KIT ASSEMBLER [address] [place] [address] PCP - General Family Medicine 09/03/24 Liner Checker Relationship Specialty Start Date End Date Lesa Soler MAGNETIC GRINDER OPERATOR.DE ICER KIT ASSEMBLER [address] [place] [address] PCP - General Family Medicine 09/03/24 Team Status: Active Member Role Status Dates Lesa Soler REGIONAL ACCOUNT DIRECTOR, REGIONAL ACCOUNT DIRECTOR-C Primary Care Provider Active Team Status: Inactive Member Role Status Dates Lesa Soler NP, TAMIE-C Primary Care Provider Active Start: February 06, 2025 End: February 06, 2025 Juan Tapia MD Emergency Provider Active Star t: February 06, 2025 End: February 06, 2025 Liner Checker Relationship Specialty Start Date End Date Lesa Soler, MAGNETIC GRINDER OPERATOR.DE ICER KIT ASSEMBLER [address] [place] [address] PCP - General Family Medicine 09/03/24 Team Status: Inactive Member Role Status Dates Lesa Soler NP, TAMIE-C Primary Care Provider Active Start: February 06, 2025 End: February 06, 2025 Juan Tapia MD Attending Provider Active Star t: February 06, 2025 End: February 06, 2025 Juan Tapia MD Emergency Provider Active Star t: February 06, 2025 End: February 06, 2025 Team Status: Inactive Member Role Status Dates Lesa Soler NP, NP-Katlyn Primary Care Provider Active Start: March 14, 2025 End: March 14, 2025 Dr. Andres Loyola , Emergency Provider Active Start : March 14, 2025 End: March 14, 2025 Goals (unrecognized section and content) Goals may be documented in a n alternate sectionGoals may be documented in an alternate sectionGoals may be documented in an alternate section Source Comments (unrecognize d section and content) In the event this informatio n is protected by the Federal Confidentiality of Alcohol and Drug Abuse Patient Records regulations: The Federal rules restrict any use of the information to criminally investigate or prosecute any alcohol or drug abuse patient.[facility] the event this information is protected by the Federal Confidentiality of Alcohol and Drug Abuse Patient Records regulations: The Federal rules restrict any use of the information to criminally investigate or prosecute any alcohol or drug abuse patient.[facility] the event this information is protected by the Federal Confidentiality of Alcohol and Drug Abuse Patient Records regulations: The Federal rules restrict any use of the information to criminally investigate or prosecute any alcohol or drug abuse patient.[facility] the event this information is protected by the Federal Confidentiality of Alcohol and Drug Abuse Patient Records regulations: The Federal rules restrict any use of the information to criminally investigate or prosecute any alcohol or drug abuse patient.[facility] Hospital[facility] the event this information is protected by the Federal Confidentiality of Alcohol and Drug Abuse Patient Records regulations: The Federal rules restrict any use of the information to criminally investigate or prosecute any alcohol or drug abuse patient.[facility] Hospital[facility] the event this information is protected by the Federal Confidentiality of Alcohol and Drug Abuse Patient Records regulations: The Federal rules restrict any use of the information to criminally investigate or prosecute any alcohol or drug abuse patient.[facility] Hospital[facility] the event this information is protected by the Federal Confidentiality of Alcohol and Drug Abuse Patient Records regulations: The Federal rules restrict any use of the information to criminally investigate or prosecute any alcohol or drug abuse patient.[facility] Hospital[facility] the event this information is protected by the Federal Confidentiality of Alcohol and Drug Abuse Patient Records regulations: The Federal rules restrict any use of the information to criminally investigate or prosecute any alcohol or drug abuse patient.[facility] Hospital[facility] the event this information is protected by the Federal Confidentiality of Alcohol and Drug Abuse Patient Records regulations: The Federal rules restrict any use of the information to criminally investigate or prosecute any alcohol or drug abuse patient.[facility] Hospital[facility] the event this information is protected by the Federal Confidentiality of Alcohol and Drug Abuse Patient Records regulations: The Federal rules restrict any use of the information to criminally investigate or prosecute any alcohol or drug abuse patient.[facility] Hospital[facility] the event this information is protected by the Federal Confidentiality of Alcohol and Drug Abuse Patient Records regulations: The Federal rules restrict any use of the information to criminally investigate or prosecute any alcohol or drug abuse patient.[facility] Hospital[facility] the event this information is protected by the Federal Confidentiality of Alcohol and Drug Abuse Patient Records regulations: The Federal rules restrict any use of the information to criminally investigate or prosecute any alcohol or drug abuse patient.[facility] Hospital[facility] the event this information is protected by the Federal Confidentiality of Alcohol and Drug Abuse Patient Records regulations: The Federal rules restrict any use of the information to criminally investigate or prosecute any alcohol or drug abuse patient.[facility] Hospital[facility] the event this information is protected by the Federal Confidentiality of Alcohol and Drug Abuse Patient Records regulations: The Federal rules restrict any use of the information to criminally investigate or prosecute any alcohol or drug abuse patient.[facility] Reason for Visit (unrecogniz ed section and content) Reason Comments Fertility Preservation Wants to talk abo ut fertility Last pap 2 yrs ago,Unsure of period jun or July 2024, first one in a year Reason Comments Assessment Patient Education Specialty Diagnoses / Procedures Referred By Megan dumont Referred To Contact [facility] [place] [facility] Diagnoses Type 2 diabetes mellitus without complication, without long-term current use of insulin (HCC) Procedures CONSULT TO NUTRITION THERAPY MEDICAL NUTRITION ASSMT&IVNTJ INDIV EACH 15 HI Lesa Soler, TRINI.DE ICER KIT ASSEMBLER [address] [place] [address] [facility] [address] [place] [address] Referral ID Status Reason Start Date Expiration Date Visits Requested Visits Authorized [id number] Authorized PCP Requested Referral 09/03/2024 09/03/2025 1 4 Reason Comments Results labs Reason Comments Establish Care No concerns on depre ssion meds, does not remember the name of medication Sees psychiatrist Dr. Tamia No.for this medication. Moved her from [facility] Reason Comments Reassessment Patient Education Reason Comments Head Congestion ST, [place], cough, sinus congestion x2 days Reason Onset Date Comments Results 11/12/2024 Reason Comments Infertility Specialty Diagnoses / Procedures Referred By Megan dumont Referred To Contact Diagnoses PCOS (polycystic ovarian syndrome) Primary female infertility Procedures CONSULT TO INFERTILITY CLINIC OFFICE/OUTPATIENT [facility] [address] [place] [address] [place] [address] Phone: tel: Referral ID Status Reason Start Date Expiration Date V isits Requested Visits Authorized [id number] Closed PCP Requested Referral Auto-Generated Referral 08/28/2024 08/28/2025 1 1 Reason Comments Diabetes Patient is going to make appointment to see eye doctor Reason Onset Date Comments ED Follow-up 02/06/2025 [facility] 025 and [facility] ED 02/08/2025 Reason Onset Date Comments ED Follow-up 03/14/2025 [facility] 2024 Reason Comments Lab Orders FOR RECORDS PERTAINING TO PATIENTS WHO ARE [...] BE BASED ON THE PRIMARY CLINICAL RECORDS. [employer] [facility]. provides no warranty or guarantee of the accuracy or completeness of information in this document.
[2025-03-30] MEDS: 0.9% Normal Saline (1000mL) 1,000 ML 999 ML IV (10:30)
[2025-03-30] MEDS: Ondansetron 4 MG/2 ML Vial IV (10:30)
[2025-03-30] MEDS: Lorazepam 2 MG/ML WCH Syringe 1 MG IV (10:31)
[2025-03-30 10:34] LABS: Red Blood Cells-Urine 0 SEEN /hpf (0-5)
[2025-03-30 10:37] LABS: Absolute Lymphocyte Count 1.38 X10^3/uL (0.83-4.51); Basophil# 0.04 X10^3/uL; Basophil% 0.4 % (0-1); Color, Urine Yellow (Yellow); Glucose, Dipstick Normal (Normal); Hematocrit 40.3 % (37-47); Ketone-Dipstick Negative (Negative); Leukocyte Esterase-Dipstick 25 /ul (Negative); Lymphocyte # 1.38 X10^3/ul (0.83-4.51); Lymphocyte % 12.9 % (19-41); Mean Corp Hgb Conc 32.3 g/dL (32-36); Mean Corpuscular Hgb 27.4 pg (27.0-32.0); Mean Platelet Vol. 10.8 fl (6.2-12.0); Monocyte# 0.25 X10^3/uL; Monocyte% 2.3 % (0-10); NRBC Flagged by Analyzer 0 % (0-5); Neutrophil # 9.01 X10^3/uL (2.7-7.7); Nitrite-Dipstick Negative (Negative); Occult Blood-Urine Negative /ul (Negative); Platelet Count 259 K/mm3 (150-450); Protein-Dipstick 15 mg/dl (Negative); RBC Distribution Width CV 13.8 % (11.6-14.6); RBC Distribution Width SD 42.8 fl (35.1-43.9); Red Blood Count 4.74 M/mm3 (4.2-5.4); Specific Gravity, Urine 1.015 (1.002-1.030); Urine Bilirubin Dipstick Negative (Negative); Urine Clarity Clear (Clear); Urine Urobilinogen Normal (Normal); Urine pH 6.5 (5.0 - 8.0); White Blood Count 10.7 K/mm3 (4.4-11.0)
[2025-03-30 10:54] LABS: White Blood Cells 0-5 SEEN /hpf (0-5)
[2025-03-30 10:55] LABS: Bacteria RARE /hpf (None Seen); Mucous, Urine 1+ /hpf (<or=2+); Squamous Epithelial Cells - UA 0-5 SEEN /hpf (5-10)
[2025-03-30 11:05] LABS: Internal QC Validated? YES +Cl - CLEAR BKGD; Pregnancy, Serum, hCG Quali. NEGATIVE Negative
[2025-03-30 11:10] LABS: ALB/GLOB Ratio 1.5 RATIO (0.9-2.4); AST(SGOT) 26 U/L (<=31); Alanine Aminotransfer ALT/SGPT 29 U/L (<=34); Albumin, Serum 4.6 g/dL (3.5-5.0); Alkaline Phosphatase 63 U/L (35-104); Anion Gap 10 (5-15); BUN 7 mg/dL (4-19); BUN/Creat Ratio 9.3 RATIO (10-20); Calcium,Total 10.7 mg/dL (7.6-11.0); Carbon Dioxide 25.4 mmol/L (21.0-32.0); Chloride 104 mmol/L (98-108); EST Glomerular Filtration Rate 101 (>60); Globulin 3.1 g/dL (2.2-4.2); Glucose 129 mg/dL (70-99); Lipase 32 U/L (13-75); Potassium 4.1 mmol/L (3.3-5.1); Protein, Total 7.7 g/dL (5.9-8.4); Sodium Level 139 mmol/L (133-145); Total Bilirubin 0.44 mg/dL (0.00-1.30)
[2025-03-30 11:51] VITALS: BP 120/74; PULSE 70; RESP 14; O2SAT 100
[2025-03-30 11:56] VITALS: BP 120/74; PULSE 70; RESP 14; TEMP 36.6; O2SAT 100
== END 2025-03-30 11:56 | disposition home or self-care (01) ==
PROVIDERS: Emergency Provider Emergency Medicine; PCP Nurse Practitioner Family; Visit Provider Emergency Medicine
DX: R11.2 Nausea with vomiting, unspecified (principal); R10.84 Generalized abdominal pain; F41.9 Anxiety disorder, unspecified; F17.290 Nicotine dependence, other tobacco product, uncomplicated
CPT/HCPCS: 80053; 81001; 83690; 84703; 85025; 96361; 96374; 96375; 99284; A4216; J2405

== ENCOUNTER 2025-03-30 18:15 | Emergency (ER) | payer SELFPAY ==
[2025-03-30 18:15] VITALS: BP 155/67; PULSE 112; RESP 20; TEMP 36.6; O2SAT 99; BMI 29.4
--- NOTE | 2025-03-30 18:29 | EDS_ITS ---
HPI History of Present Illness Chief Complaint: Anxiety Informant: patient Onset/Context/Timing Onset: Today Context: Gradual Onset Timing: Continuous Quality: Anxiety Location: Generalized Worsened by: Nothing Relieved by: Nothing Narrative Narrative: Patient presents with nausea and vomiting, sweats, and shortness of breath that became worse again today. Patient was seen here earlier today. Patient states she was feeling better when she was discharged. Patient states she has a history of panic disorder and states this feels similar to prior panic attacks. Patient states she is unable to keep anything down. Patient admits to some sweats. Patient admits to subjective fevers and chills. Patient denies any chest pain. Patient admits to some shortness of breath. Patient denies any neck or back pain. [facility] Medical History Anxiety Anxiety disorder Cannabis use disorder Cyclic vomiting syndrome PCOS (polycystic ovarian syndrome) Home Medications ?Medication ?Instructions ?Recorded ?Last Taken ?Type propranolol 80 mg capsule,24 20 mg PO BID PRN anxiety 02/23/24 Unknown History hr,extended release hydroxyzine pamoate 25 mg capsule 25 mg PO TID PRN PRN Anxiety #10 03/30/25 Unknown Rx CAPSULES ondansetron 4 mg disintegrating 4 mg PO Q8H PRN PRN Na usea #10 tabs 03/30/25 Unknown Rx tablet venlafaxine 150 mg 150 mg PO DAILY 03/30/25 Unk nown History capsule,extended release 24 hr (Effexor XR) Allergy/AdvReac Type Severity Reaction Status Date / Time No Known Allergies Allergy Verified 03/30/25 18:16 Family History Mother Cancer skin Surgical History right salpingectomy FH: cholecystectomy Social History housing: apartment number of children: 0 current occupational status: employed current occupation: [employer] Smoking Status: Current every day smoker tobacco type: e-cigarettes Smokeless tobacco user: chewing tobacco alcohol intake: current alcohol intake frequency: holidays/special occasions only substance use type: marijuana seatbelt use: always do you feel safe at home: Yes additional social history: [employer] ROS ROS ED Constitutional Constitutional ED: Reports chills, fever(s), subjective and sweats Eyes Eyes: Denies blurry vision or change in vision ENT ENT ED: Denies rhinorrhea or sore throat Cardiovascular Cardiovascular: Denies chest pain or palpitations Respiratory/Chest Respiratory/Chest: Reports dyspnea; Denies cough Gastrointestinal Gastrointestinal: Reports abdominal pain, nausea and vomiting Genitourinary Genitourinary ED: Denies dysuria or hematuria Musculoskeletal Musculoskeletal: Denies back pain or neck pain Integumentary Denies abscess or rash Neurologic Neurologic: Denies headache(s) or weakness Psychiatric Psychiatric: Reports anxiety Allergic/Immunologic Allergic/Immunologic ED: Denies mouth swelling or urticaria EXAM Physical Exam Const Vital Signs: 03/30/25 18:15 03/30/25 20:15 Temperature 97.8 F Temperature Source Oral Pulse Rate 112 H Respiratory Rate 20 H Blood Pressure 155/67 H 138/88 H Blood Pressure Mean 96 104 Pulse Ox 99 Oxygen Delivery Method Room Air Positive well nourished and well developed Constitutional Narrative: BMI is 29.4. General Appearance ED: well developed and NAD HEENT Reports moist mucous membranes Neck supple and no JVD Resp normal respiratory effort and clear to auscultation bilaterally Cardio regular rhythm Rate: tachycardic GI non-distended Palpation: soft Neuro oriented x3, CN's II-XII intact bilaterally and no sensory deficits noted Sensorium / Orientation: alert Motor Exam: strength 5/5 throughout Psych Mood & Affect: anxious MDM MDM MDM Narrative Medical decision making narrative: Differential diagnosis includes gastroenteritis, cannabis hyperemesis syndrome, gastritis, anxiety, and dehydration. Patient will be given IV fluids. Cyclic vomiting orders will be placed. History & Record Review Additional record(s) reviewed:: Prior ED visit and Prior labs Treatment and Re-Evaluation :: Patient is an IV fluids, Ativan, Zofran, and Pepcid. Patient was also given capsaicin cream. Patient had minimal relief with this. Patient was given a dose of Compazine and Benadryl. Patient was sleeping on reevaluation. Patient stated she was feeling better. Patient was instructed to continue her Zofran as previously prescribed. Patient was instructed to start with liquids and advance her diet as tolerated. Patient was given a prescription for hydroxyzine. Patient was instructed to follow-up with her primary care physician in 3 to 5 days. Instructed to return if worse in any way. Patient understood and was agreeable with plan. All questions were answered. Discharge Plan Triage Chief Complaint: Anxiety ED Provider: Omkar James Dx/Rx/DC Orders Clinical Impression: Anxiety disorder, Cyclic vomiting syndrome Instructions: ED Cyclic Vomiting Syndrome, ED Anxiety Reaction Prescriptions: Continued hydroxyzine pamoate 25 mg capsule 25 mg PO TID PRN PRN (Reason: Anxiety) Qty: 10 0RF No Action venlafaxine [Effexor XR] 150 mg capsule,extended release 24hr 150 mg PO DAILY ondansetron 4 mg tablet,disintegrating 4 mg PO Q8H PRN PRN (Reason: Nausea) Qty: 10 0RF propranolol 80 mg capsule,extended release 24 hr 20 mg PO BID PRN (Reason: anxiety) Rx Instructions: half a tablet to 2 tablets up to twice a day Primary Care Provider: Joann Matamoros NP Referrals: Joann Matamoros NP, ELIGIBILITY CONSULTANT-C [Primary Care Provider] - 3-5 Days Print Language: Palauan Disposition Disposition: Home, Self Care
--- OUTSIDE RECORDS SUMMARY | 2025-03-30 18:37 | XMS RPT_ITS | CCD ---
Author Organization [facility] Care Team Providers Care Operations Advisor Name Role Phone ANA Marshall RN, Joshua Jang Unavailable Unavailfranchesca Marshall RN RN, Joshua Jang Unavailable Unavailabl e PAGE, BASIM T Unavailable Unavailable APGE, BASIM T Unavailable Unavailable Veena BATISTA, Collette Hansen Unavailable [phone] Ry Adler MD Primary Care Provider Triisadora BAGGAGE PORTER HEAD.PAOLA, Lesa C Primary Care Provider TRILL, LESA C Primary Care Unavailable GEMA SMALL Attending Unavailable MARIO MONIQUE Referring Unavailable TRILL, LESA C Primary Care Unavailable MARIO MONIQUE Attending Unavailable RY ADLER Primary Care Unavailable TRILL, LESA C Referring Unavailable TRILL, LESA C Primary Care Unavailable STACI GIVENS Attending Unavailable TRILL, LESA C Referring Unavailable TRILL, LESA C Primary Care Unavailable STACI GIVENS Attending Unavailable TRILL, LESA C Primary Care Unavailable Trill UPSTREAM BIOMANUFACTURING TECHNICIAN-C, Lesa Primary Care Provider Juan Tapia MD Emergency Provider NO, PHYSICIAN Primary Care Unavailable WU CRISOSTOMO Attending Unavailable Juan Tapia MD Attending Provider [phone] Andres Loyola DO Emergency Provider TRILL LESA C Attending Unavailable TRILL, LESA C Primary Care Unavailable TRILL, LESA C Referring Unavailable TRILL, LESA C Attending Unavailable TRILL, LESA C Primary Care Unavailable Dr. Andres Loyola DO Attending Provider Dr. Ry James DO Emergency Provider Ry James Attending Unavailable Trill UPSTREAM BIOMANUFACTURING TECHNICIAN, Lesa Primary Care Unavailable Oliver Marley Attending Unavailable Care Physician, No Primary Primary Care Unava ilable Saturnino UPSTREAM BIOMANUFACTURING TECHNICIAN, Lesa Primary Care Unavailable Christos Esparza Attending Unavailable Saturnino UPSTREAM BIOMANUFACTURING TECHNICIAN, Lesa Primary Care Unavailable Juan Tapia Attending Unavailable Saturnino UPSTREAM BIOMANUFACTURING TECHNICIAN, Lesa Primary Care Unavailable Andres Loyola Attending Unavailable Medications Current Medications Medication Drug Class(es) Dates Sig (Normalized) Sig (Original) hydrOXYzine pamoate 25 mg oral capsule (2 sources) Antihistamine Start: 03-14-2025 take 1 capsule by mouth three times daily as needed for anxiety Hydroxyzine Pamoate 25 mg capsule Active 25 mg PO 3 TIMES DAILY NEEDED as needed for Anxiety 10 0 March 14, 2025 12:00am 24 hr propranolol hydrochloride 80 mg extended release oral capsule (3 sources) beta-Adrenergic Vasiliy Start: 02-23-2024 Propranolol 80 mg capsule,extended release 24 hr Active 20 mg PO TWICE A DAY as needed for anxiety February 23, 2024 12:00am half a tablet to 2 tablets up to twice a day 24 hr venlafaxine 150 mg extended release oral capsule (12 sources) Serotonin and Norepinephrine Reuptake Inhibitor Start: 03-30-2025 take 1 capsule by mouth once daily Venlafaxine (Effexor Xr) 150 mg capsule,extended release 24hr Active 150 mg PO DAILY March 30, 2025 12:00am venlafaxine (EFF EXOR) 75 mg tablet Take 75 mg by mouth once daily. Taking 112 mg a day Active Completed/Discontinued Medications Medication Drug Class(es) Dates Sig (Normalized) Sig (Original) acetaminophen 325 mg / oxyCODONE hydrochloride 5 mg oral tablet (3 sources) Opioid Agonist Start: 02-23-2024 End: 03-30-2025 Oxycodone-Acetamino phen (Percocet) 5-325 mg tablet Discontinued 1 {tbl} PO EVERY 6 HOURS as needed for pain 12 3 0 February 23, 2024 March 30, 2025 10:35am Abdominal pain Unspecified abdominal pain B INFANTIS/B ANI/B CONSUELO/B BIFID (PROBIOTIC 4X [...] tablet by mouth twice daily DOXYCYCLINE HYCLATE [id number] Collette Curiel MD DULoxetine 30 mg delayed release oral capsule (3 sources) Serotonin and Norepinephrine Reuptake Inhibitor Start: 02-23-2024 End: 03-30-2025 Duloxetine (Cymbalta) 30 mg capsule,delayed release(DR/EC) Discontinued 30 mg PO DAILY February 23, 2024 12:00am March 30, 2025 10:36am one capsule for 14 days and then increase to 2capsule Norgestrel-Ethinyl Estradiol (6 sources) Estrogen Start: 09-23-2017 End: 09-26-2019 Norgestrel-Ethiny [...] 07/13/2017 Active famotidine 20 mg oral tablet (4 sources) Histamine-2 Receptor Antagonist Start: 02-20-2017 End: [...] twice daily. 24 tablet 10/05/2018 09/03/2024 Discontinued lansoprazole 30 mg delayed release oral capsule (3 sources) Proton Pump Inhibitor Start: 07-15-2024 End: 03-30-2025 take 1 capsule by mouth once daily Lansoprazole (Prevacid) 30 mg capsule,delayed release(DR/EC) Discontinued 30 mg PO DAILY 14 July 15, 2024 12:00am March 30, 2025 10:35am metFORMIN hydrochloride 1000 mg oral tablet (4 sources) Biguanide Start: 03-28-2023 End: 03-30-2025 take 1 tablet by mouth twice daily Metformin 1,000 mg Tablet Discontinued 1000 mg PO TWICE A DAY March 28, 2023 12:00am March 30, 2025 10:35am metroNIDAZOLE 500 mg oral tablet (3 sources) Nitroimidazole Antimicrobial take 1 tablet by mouth three times daily FLAGYL 500 MG TABS One tablet by mouth three times daily METRONIDAZOLE [id number] Collette Curiel MD Drug Treatment Unknown - unknown (1 source) No information available. ondansetron 4 mg disintegrating oral tablet (12 sources) Serotonin-3 Receptor Antagonist Start: 07-15-2024 End: 03-30-2025 take 1 tablet by mouth every eight hours as needed for nausea Ondansetron 4 mg tablet,disintegrat ing Discontinued 4 mg PO EVERY 8 HOURS NEEDED as needed for Nausea March 14, 2025 12:00am March 30, 2025 10:35am Start: 02-28-2017 take 1 tablet by jluis three times daily ZOFRAN 4 MG TABS One tablet by mouth three times daily ONDANSETRON HCL [id number] Collette Curiel MD Start: 02-28-2017 take 1 tablet by jluis th three times daily ZOFRAN 4 MG TABS One tablet by mouth three times daily ONDANSETRON HCL [id number] Collette Curiel MD VIT/IRON FUM/FOLIC AC ( 10/02 ORAL) (2 sources) End: 09-03-2024 VIT/IRON FUM/FOLIC AC ( 10/02 ORAL) Take by mouth. 09/03/2024 Discontinued VIT/IRO N FUM/FOLIC AC ( 10/02 ORAL) Take by mouth. Active progesterone 200 mg oral capsule (3 sources) Progesterone Start: 02-23-2024 End: 03-30-2025 take 1 capsule by mouth at bedtime Progesterone Micronized 200 mg capsule Discontinued 200 mg PO AT BEDTIME February 23, 2024 12:00am March 30, 2025 10:35am promethazine hydrochloride 25 mg oral tablet (3 sources) Phenothiazine Start: 02-23-2024 End: 03-30-2025 take 1 tablet by mouth three times daily as needed for nausea and vomiting Promethazine 25 mg tablet Discontinued 25 mg PO THREE TIMES A DAY as needed for nausea and vomiting 21 7 0 February 23, 2024 6:36am March 30, 2025 10:35am sucralfate 1000 mg oral tablet (3 sources) Aluminum Complex take 1 tablet by mouth four times daily CARAFATE 1 GM TABS One tablet by mouth four times daily SUCRALFATE [id number] Collette Curiel MD take 1 tablet by mouth four time s daily CARAFATE 1 GM TABS One tablet by mouth four times daily DATRALFATE [id number] Collette Curiel MD Problems Active Problems Problem Classification Problem Date Documented Date Episodic/Chronic Abdominal pain (20 sources) Right upper quadrant pain; Translations: [Epigastric pain] Onset: 05-16-2017 05-16-2017 Episodic Administrative/socia l admission (7 sources) Patient encounter status; Translations: [Dietary counseling and surveillance] 09-11-2024 Episodic Anxiety disorders (20 sources) Anxiety; Translations: [Anxiety disorder, unspecified] Onset: 09-22-2024 03-28-2023 Chronic Diabetes mellitus without complication (19 sources) Type 2 diabetes mellitus without complication; Translations: [Type 2 diabetes mellitus without complications] Onset: 09-03-2024 09-11-2024 Chronic Diseases of white blood cells (3 sources) Leukocytosis; Translations: [Elevated white blood cell count, unspecified] 07-23-2024 Chronic Disorders of lipid metabolism (10 sources) Dyslipidemia; Translations: [Hyperlipidemia, unspecified] Onset: 11-08-2024 11-08-2024 Chronic Esophageal disorders (4 sources) Gastroesophageal reflux disease; Translations: [Gastro-esophageal reflux disease without esophagitis] Onset: 02-28-2017 02-28-2017 Chronic Female infertility (3 sources) Primary female infertility; Translations: [Female infertility, unspecified] Onset: 11-18-2024 08-28-2024 Chronic Fluid and electrolyte disorders (6 sources) Dehydration; Translations: [Dehydration] 10-08-2024 Episodic Menstrual disorders (17 sources) Secondary amenorrhea; Translations: [Secondary amenorrhea] Onset: 09-22-2024 09-26-2019 Chronic Nausea and vomiting (14 sources) Nausea; Translations: [Nausea] Onset: 09-03-2024 09-03-2024 Episodic Other disorders of stomach and duodenum (3 sources) Cyclical vomiting syndrome; Translations: [Cyclical vomiting [...] injuries and conditions due to external causes (4 sources) Closed injury of head; Translations: [Unspecified injury of head, initial encounter] 01-10-2019 Episodic Other nutritional; endocrine; and metabolic disorders (3 sources) Overweight; Translations: [Overweight] Onset: 02-28-2017 02-28-2017 Chronic Other nutritional; endocrine; and metabolic disorders (1 source) Obese class I; Translations: [Obesity, Class I, BMI 30-34.9] 10-30-2024 Chronic Other nutritional; endocrine; and metabolic disorders (3 sources) Body mass index 30+ - obesity; [...] other genital organ(s)] 11-18-2024 Episodic Substance-related disorders (3 sources) Cannabis use, unspecified, uncomplicated; Translations: [Cannabis use disorder] 09-30-2024 Episodic Suicide and intentional self-inflicted injury (15 sources) Suicidal thoughts; Translations: [Suicidal ideations] Onset: 09-22-2024 03-28-2023 Episodic Past or Other Problems Problem Classification Problem Date Documented Date Episodic/Chronic Biliary tract disease (15 sources) Calculus of gallbladder without cholecystitis without obstruction; Translations: [Gallstone] Onset: 08-28-2017 08-28-2017 Episodic Inflammatory diseases of female pelvic organs (3 sources) Female pelvic inflammatory disease; Translations: [Female pelvic inflammatory disease, unspecified] Onset: 02-28-2017 03-01-2017 Episodic Noninfectious gastroenteritis (13 sources) Chronic diarrhea; Translations: [Noninfective gastroenteritis and colitis, unspecified] Onset: 09-03-2024 09-03-2024 Episodic Other skin disorders (6 sources) Hirsutism; Translations: [Hirsutism] Onset: 11-27-2024 11-27-2024 Episodic Other skin disorders (1 source) Hirsutism; Translations: [Hirsutism] Onset: 11-08-2024 Episodic Residual codes; unclassified (2 sources) Early satiety; Translations: [Early satiety] Onset: 09-03-2024 Episodic Unclassified (4 sources) right salpingectomy 04-23-2022 Unclassified (4 sources) Contusion of left shoulder, initial encounter 01-10-2019 Unclassified (2 sources) Patient encounter status 11-18-2024 Results Test Name Value Interpretation Reference Range Facility Absolute lymphocyte countOrd ered By: Ry James on 03-30-2025 Lymphocytes Auto (Unsp spec) [#/Vol] 1.38 10*3/uL 0.83-4.51 [facility] Absolute neutrophil countOrd ered By: Ry James on 03-30-2025 Neutrophils (Bld) [#/Vol] 9.0 10*3/uL High 2.0-7.7 [facility] Anion gap in Serum or Plasma Ordered By: Ry James on 03-30-2025 Anion gap [Moles/Vol] 10 mmol/L 5-15 [facility] Automated lymphocyte count a s percentage of total leukocytesOrdered By: Ry James on 03-30-2025 Lymphocytes/100 WBC Auto (Unsp spec) 12.9 % Low 19-41 [facility] BUN/creatinine ratioOrdered By: Ry James on 03-30-2025 Urea nitrogen/Creatinine [Mass ratio] 9.3 mg/mg Low 10-20 [facility] Basophil percentageOrdered B y: Ry James on 03-30-2025 Basophils/100 WBC (Bld) 0.4 % 0-1 [facility] Bilirubin Test strip Ql (U)O rdered By: Ry James on 03-30-2025 Bilirubin Ql (U) Negative Negative [facility] Bilirubin, totalOrdered By: Ry James on 03-30-2025 Bilirubin [Mass/Vol] 0.44 mg/dL 0.00-1.30 [facility] CBC W/Diff, Automatedon 03-03 Absolute Lymph 1.38 X10 3/uL Normal 0.83-4.51 [facility] Comment on above: Performed By: #### L 501.2450, L700.6800, L100.0100, L500.4050 ####[facility] [address] [place], [place], [id number] Absolute Neut 9.0 X10 3/uL High 2.0-7.7 [facility] Comment on above: Performed By: #### L 501.2450, L700.6800, L100.0100, L500.4050 ####[facility] [address] [place], [address] Basophils/100 WBC (Bld) 0.4 % Normal 0-1 [facility] Comment on above: Performed By: #### L 501.2450, L700.6800, L100.0100, L500.4050 ####[facility] [address] [place], [address] Eosinophils/100 WBC (Bld) 0.0 % Normal 0-5 [facility] Comment on above: Performed By: #### L 501.2450, L700.6800, L100.0100, L500.4050 ####[facility] [address] [place], [address] Erythrocyte distribution width (RBC) [Ratio] 13.8 % Normal 11.6-14.6 [facility] Comment on above: Performed By: #### L 501.2450, L700.6800, L100.0100, L500.4050 ####[facility] [address] [place], [address] Hematocrit (Bld) [Volume fraction] 40.3 % Normal 37-47 [facility] Comment on above: Performed By: #### L 501.2450, L700.6800, L100.0100, L500.4050 ####[facility] [address] [place], [address] Hemoglobin (Bld) [Mass/Vol] 13.0 g/dL Normal 12.0-15.0 [facility] Comment on above: Performed By: #### L 501.2450, L700.6800, L100.0100, L500.4050 ####[facility] [address] [place], [address] IG% 0.400 Normal 0.0-0.9 [facility] Comment on above: Result Comment: IG% - Immature Granulocytes (promyelocytes, myelocytes and metamyelocytes) > 1% indicates that a LEFT SHIFT is Present. Performed By: #### L 501.2450, L700.6800, L100.0100, L500.4050 ####[facility] [address] [place], [address] Lymphocytes/100 WBC (Bld) 12.9 % Low 19-41 [facility] Comment on above: Performed By: #### L 501.2450, L700.6800, L100.0100, L500.4050 ####[facility] [address] [place], [address] MCH (RBC) [Entitic mass] 27.4 pg Normal 27.0-32.0 [facility] Comment on above: Performed By: #### L 501.2450, L700.6800, L100.0100, L500.4050 ####[facility] [address] [place], [address] MCHC (RBC) [Mass/Vol] 32.3 g/dL Normal 32-36 [facility] Comment on above: Performed By: #### L 501.2450, L700.6800, L100.0100, L500.4050 ####[facility] [address] [place], [address] MCV (RBC) [Entitic vol] 85.0 fL Normal 81-99 [facility] Comment on above: Performed By: #### L 501.2450, L700.6800, L100.0100, L500.4050 ####[facility] [address] [place], [address] Monocytes/100 WBC (Bld) 2.3 % Normal 0-10 [facility] Comment on above: Performed By: #### L 501.2450, L700.6800, L100.0100, L500.4050 ####[facility] [address] [place], [address] Neutrophils/100 WBC (Bld) 84.0 % High 47-70 [facility] Comment on above: Performed By: #### L 501.2450, L700.6800, L100.0100, L500.4050 ####[facility] [address] [place], [address] Nucleated RBC (Bld) [#/Vol] 0 10*3/uL Normal 0-5 [facility] Comment on above: Performed By: #### L 501.2450, L700.6800, L100.0100, L500.4050 ####[facility] [address] [place], [address] Platelet mean volume (Bld) [Entitic vol] 10.8 fL Normal 6.2-12.0 [facility] Comment on above: Performed By: #### L 501.2450, L700.6800, L100.0100, L500.4050 ####[facility] [address] [place], [address] Platelets (Bld) [#/Vol] 259 10*3/uL Normal 150-450 [facility] Comment on above: Performed By: #### L 501.2450, L700.6800, L100.0100, L500.4050 ####[facility] [address] [place], [address] RBC (Bld) [#/Vol] 4.74 10*6/uL Normal 4.2-5.4 [facility] Comment on above: Performed By: #### L 501.2450, L700.6800, L100.0100, L500.4050 ####[facility] [address] [place], [address] RDW SD 42.8 fl Normal 35.1-43.9 [facility] Comment on above: Performed By: #### L 501.2450, L700.6800, L100.0100, L500.4050 ####[facility] [address] [place], [address] WBC (Bld) [#/Vol] 10.7 10*3/uL Normal 4.4-11.0 [facility] Comment on above: Performed By: #### L 501.2450, L700.6800, L100.0100, L500.4050 ####[facility] [address] [place], [address] Carbon dioxide, total [Moles /volume] in Central venous bloodOrdered By: Ry James on 03-30-2025 CO2 [Moles/Vol] 25.4 mmol/L 21.0-32.0 [facility] Chloride assayOrdered By: Damian James on 03-30-2025 Chloride [Moles/Vol] 104 mmol/L 98-108 [facility] Comprehensive Metabolic Prof ilon 03-30-2025 Albumin [Mass/Vol] 4.6 g/dL Normal 3.5-5.0 [facility] Comment on above: Performed By: #### L 501.2450, L700.6800, L100.0100, L500.4050 ####[facility] [address] [place], [address] Albumin/Globulin [Mass ratio] 1.5 {ratio} Normal 0.9-2.4 [facility] Comment on above: Performed By: #### L 501.2450, L700.6800, L100.0100, L500.4050 ####[facility] [address] [place], [address] ALK PHOS 63 U/L Normal 35-104 [facility] Comment on above: Performed By: #### L 501.2450, L700.6800, L100.0100, L500.4050 ####[facility] [address] [place], [address] ALT [Catalytic activity/Vol] 29 U/L Normal <=34 [facility] Comment on above: Performed By: #### L 501.2450, L700.6800, L100.0100, L500.4050 ####[facility] [address] [place], [address] AST [Catalytic activity/Vol] 26 U/L Normal <=31 [facility] Comment on above: Performed By: #### L 501.2450, L700.6800, L100.0100, L500.4050 ####[facility] [address] [place], [address] Bilirubin [Mass/Vol] 0.44 mg/dL Normal 0.00-1.30 [facility] Comment on above: Performed By: #### L 501.2450, L700.6800, L100.0100, L500.4050 ####[facility] [address] [place], [address] BUN/CRE 9.3 RATIO Low 10-20 [facility] Comment on above: Performed By: #### L 501.2450, L700.6800, L100.0100, L500.4050 ####[facility] [address] [place], [address] Calcium [Mass/Vol] 10.7 mg/dL Normal 7.6-11.0 [facility] Comment on above: Performed By: #### L 501.2450, L700.6800, L100.0100, L500.4050 ####[facility] [address] [place], [address] Chloride [Moles/Vol] 104 mmol/L Normal 98-108 [facility] Comment on above: Performed By: #### L 501.2450, L700.6800, L100.0100, L500.4050 ####[facility] [address] [place], [address] CO2 [Moles/Vol] 25.4 mmol/L Normal 21.0-32.0 [facility] Comment on above: Performed By: #### L 501.2450, L700.6800, L100.0100, L500.4050 ####[facility] [address] [place], [address] Creatinine [Mass/Vol] 0.80 mg/dL Normal 0.70-1.20 [facility] Comment on above: Performed By: #### L 501.2450, L700.6800, L100.0100, L500.4050 ####[facility] [address] [place], [address] ECRCL 109.80 ml/min Normal 50-250 [facility] Comment on above: Performed By: #### L 501.2450, L700.6800, L100.0100, L500.4050 ####[facility] [address] [place], [address] GAP 10 Normal 5-15 [facility] Comment on above: Performed By: #### L 501.2450, L700.6800, L100.0100, L500.4050 ####[facility] [address] [place], [address] GFR/1.73 sq M.predicted among non-blacks MDRD (S/P/Bld) [Vol rate/Area] 101 mL/min/{1.73_m2} Normal >60 [facility] Comment on above: Result Comment: mL/m in/1.73m2 CKD-EPI Creatinine Equation (2020) Performed By: #### L 501.2450, L700.6800, L100.0100, L500.4050 ####[facility] [address] [place], [address] Globulin (S) [Mass/Vol] 3.1 g/dL Normal 2.2-4.2 [facility] Comment on above: Performed By: #### L 501.2450, L700.6800, L100.0100, L500.4050 ####[facility] [address] [place], [address] Glucose [Mass/Vol] 129 mg/dL High 70-99 [facility] Comment on above: Performed By: #### L 501.2450, L700.6800, L100.0100, L500.4050 ####[facility] [address] [place], [address] Potassium [Moles/Vol] 4.1 mmol/L Normal 3.3-5.1 [facility] Comment on above: Performed By: #### L 501.2450, L700.6800, L100.0100, L500.4050 ####[facility] [address] [place], [address] Sodium [Moles/Vol] 139 mmol/L Normal 133-145 [facility] Comment on above: Performed By: #### L 501.2450, L700.6800, L100.0100, L500.4050 ####[facility] [address] [place], [address] T PROT 7.7 g/dL Normal 5.9-8.4 [facility] Comment on above: Performed By: #### L 501.2450, L700.6800, L100.0100, L500.4050 ####[facility] [address] [place], [address] Urea nitrogen [Mass/Vol] 7 mg/dL Normal 4-19 [facility] Comment on above: Performed By: #### L 501.2450, L700.6800, L100.0100, L500.4050 ####[facility] [address] [place], [address] Eosinophil percentageOrdered By: Ry James on 03-30-2025 Eosinophils/100 WBC (Bld) 0.0 % 0-5 [facility] Erythrocyte distribution wid th ratioOrdered By: Ry James on 03-30-2025 Erythrocyte distribution width (RBC) [Ratio] 13.8 % 11.6-14.6 [facility] Erythrocyte distribution wid th standard deviationOrdered By: Ry James on 03-30-2025 Erythrocyte distribution width (RBC) [Ratio] 42.8 fl 35.1-43.9 [facility] Glomerular filtration rate ( GFR) estimation/1.73 sq m using serum, plasma, or whole bOrdered By: Ry James on 03-30-2025 GFR/1.73 sq M.predicted among non-blacks MDRD (S/P/Bld) [Vol rate/Area] 101 mL/min/{1.73_m2} >60 [facility] Comment on above: mL/min/1.73m2 CKD-EP I Creatinine Equation (2020) Hematocrit Auto (Bld) [Volum e fraction]Ordered By: Ry James on 03-30-2025 Hematocrit (Bld) [Volume fraction] 40.3 % 37-47 [facility] Hemoglobin measurementOrdere d By: Ry James on 03-30-2025 Hemoglobin (Bld) [Mass/Vol] 13.0 g/dL 12.0-15.0 [facility] Immature granulocytes/100 WB C Auto (Bld)Ordered By: Ry James on 03-30-2025 Immature granulocytes/100 WBC (Bld) 0.400 % 0.0-0.9 [facility] Comment on above: IG% - Immature Granu locytes (promyelocytes, myelocytes and metamyelocytes) > 1% indicates that a LEFT SHIFT is Present. Ketones Test strip Ql (U)Ord ered By: Ry James on 03-30-2025 Ketones Ql (U) Negative Negative [facility] Laboratory - Chemistry and C hemistry - challengeOrdered By: Ry James on 03-30-2025 AST [Catalytic activity/Vol] 26 U/L <32 [facility] Lipaseon 03-30-2025 Lipase [Catalytic activity/Vol] 32 U/L Normal 13-75 [facility] Comment on above: Result Comment: oJse porter note: LIPASE revised reference range effective 23. New Lipase methodology. Expected to produce lower values than the previous assay method. NEW Reference Range: 13 - 75 U/L Performed By: #### L 501.2450, L700.6800, L100.0100, L500.4050 ####[facility] [address] [place], [address] Lipase measurementOrdered By : Ry James on 03-30-2025 Lipase [Catalytic activity/Vol] 32 U/L 13-75 [facility] Comment on above: Please note:LIPASE r evised reference range effective 23. New Lipase methodology. Expected to produce lower values than the previous assay method. NEW Reference Range: 13 - 75 U/L MCV (mean corpuscular volume ) determinationOrdered By: Ry James on 03-30-2025 MCV (RBC) [Entitic vol] 85.0 fL 81-99 [facility] Mean corpuscular hemoglobin (MCH) determinationOrdered By: Ry James on 03-30-2025 MCH (RBC) [Entitic mass] 27.4 pg 27.0-32.0 [facility] Mean corpuscular hemoglobin concentration (MCHC) determinationOrdered By: Ry James on 03-30-2025 MCHC (RBC) [Mass/Vol] 32.3 g/dL 32-36 [facility] Mean platelet volume determi nationOrdered By: Ry James on 03-30-2025 Platelet mean volume (Bld) [Entitic vol] 10.8 fL 6.2-12.0 [facility] Microscopic analysis of urin e for red blood cells (RBC)Ordered By: Ry James on 03-30-2025 Microscopic analysis of urine for red blood cells (RBC) 0 SEEN /hpf 0-5 [facility] Monocyte percentageOrdered B y: Ry James on 03-30-2025 Monocytes/100 WBC (Bld) 2.3 % 0-10 [facility] Mucus LM Ql (Urine sed)Order ed By: Ry James on 03-30-2025 Mucus Ql (Urine sed) 1+ /hpf [facility] Neutrophil percentageOrdered By: Ry James on 03-30-2025 Neutrophils/100 WBC (Bld) 84.0 % High 47-70 [facility] Nitrite Test strip Ql (U)Ord ered By: Ry James on 03-30-2025 Nitrite Ql (U) Negative Negative [facility] Nucleated red blood cell per centageOrdered By: Ry James on 03-30-2025 Nucleated RBC/100 WBC (Bld) [Ratio] 0 % 0-5 [facility] Platelet countOrdered By: Damian James on 03-30-2025 Platelets (Bld) [#/Vol] 259 10*3/uL 150-450 [facility] Potassium measurement (mass/ volume)Ordered By: Ry James on 03-30-2025 Potassium (Unsp spec) [Mass/Vol] 4.1 mmol/L 3.3-5.1 [facility] ,Serum,hCG Quali.on 03-30-2025 HCG, SERUM QUAL Negative Normal [facility] Comment on above: Performed By: #### L 501.2450, L700.6800, L100.0100, L500.4050 ####[facility] [address] [place], [address] Protein Test strip Ql (U)Ord ered By: Ry James on 03-30-2025 Protein Ql (U) 15 mg/dl High Negative [facility] RBC Auto (Bld) [#/Vol]Ordere d By: Ry James on 03-30-2025 RBC (Bld) [#/Vol] 4.74 10*6/uL 4.2-5.4 [facility] Serum beta-hCG test, qualita tiveOrdered By: Ry James on 03-30-2025 Beta HCG ( test) Ql Negative [facility] Serum creatinine measurement (mass/volume)Ordered By: Ry James on 03-30-2025 Creatinine [Mass/Vol] 0.80 mg/dL 0.70-1.20 [facility] Serum globulin measurementOr dered By: Ry James on 03-30-2025 Globulin (S) [Mass/Vol] 3.1 g/dL 2.2-4.2 [facility] Serum glucose measurement (m ass/volume)Ordered By: Ry James on 03-30-2025 Glucose [Mass/Vol] 129 mg/dL High 70-99 [facility] Serum or plasma alanine peterson otransferase (ALT) measurementOrdered By: Ry James on 03-30-2025 ALT [Catalytic activity/Vol] 29 U/L <35 [facility] Serum or plasma albumin prakash urement (mass/volume)Ordered By: Ry James on 03-30-2025 Albumin [Mass/Vol] 4.6 g/dL 3.5-5.0 [facility] Serum or plasma albumin/glob ulin mass ratioOrdered By: Ry James on 03-30-2025 Albumin/Globulin [Mass ratio] 1.5 {ratio} 0.9-2.4 [facility] Serum or plasma alkaline frandy sphatase measurementOrdered By: Ry James on 03-30-2025 ALP [Catalytic activity/Vol] 63 U/L 35-104 [facility] Serum or plasma calcium prakash urement (mass/volume)Ordered By: Ry James on 03-30-2025 Calcium [Mass/Vol] 10.7 mg/dL 7.6-11.0 [facility] Serum or plasma urea nitroge n measurement (mass/volume)Ordered By: Ry James on 03-30-2025 Urea nitrogen [Mass/Vol] 7 mg/dL 4-19 [facility] Sodium levelOrdered By: Ry James on 03-30-2025 Sodium [Moles/Vol] 139 mmol/L 133-145 [facility] Squamous epithelial cells de tection in urine sediment by light microscopyOrdered By: Ry James on 03-30-2025 Epithelial cells.squamous LM Ql (Urine sed) 0-5 SEEN /hpf 5-10 [facility] Total proteinOrdered By: Marina James on 03-30-2025 Protein [Mass/Vol] 7.7 g/dL 5.9-8.4 [facility] Urinalysis, Completeon 03-30 BACTERIA RARE Normal None Seen [facility] Comment on above: Order Comment: CLEAN CATCH Performed By: #### L 400.0001 ####[facility] [address] [place], [address] EPI,SQUAMOUS 0-5 SEEN Normal 5-10 [facility] Comment on above: Order Comment: CLEAN CATCH Performed By: #### L 400.0001 ####[facility] [address] [place], [address] Mucus Ql (Urine sed) 1+ /hpf Normal [facility] Comment on above: Order Comment: CLEAN CATCH Performed By: #### L 400.0001 ####[facility] [address] [place], [address] WBC 0-5 SEEN Normal 0-5 [facility] Comment on above: Order Comment: CLEAN CATCH Performed By: #### L 400.0001 ####[facility] [address] [place], [address] RBC 0 SEEN Normal 0-5 [facility] Comment on above: Order Comment: CLEAN CATCH Performed By: #### L 400.0001 ####[facility] [address] [place], [address] Urine clarityOrdered By: Marina James on 03-30-2025 Clarity (U) Clear Clear [facility] Urine color determinationOrd ered By: Ry James on 03-30-2025 Color (U) Yellow Yellow [facility] Urine glucose detectionOrder ed By: Ry James on 03-30-2025 Glucose Ql (U) Normal mg/dl Normal [facility] Urine leukocyte esterase det ection by dipstickOrdered By: Ry James on 03-30-2025 Leukocyte esterase Test strip Ql (U) 25 /ul High Negative [facility] Urine pHOrdered By: Ry giraldo on 03-30-2025 pH (U) 6.5 [pH] 5.0 - 8.0 [facility] Urine sediment bacteria coun t by microscopy (number/high power field)Ordered By: Ry James on 03-30-2025 Bacteria LM.HPF (Urine sed) [#/Area] RARE /hpf None Seen [facility] Urine specific gravity measu rementOrdered By: Ry James on 03-30-2025 Specific gravity (U) [Rel density] 1.015 1.002-1.03 0 [facility] Urine urobilinogen measureme ntOrdered By: Ry James on 03-30-2025 Urobilinogen Ql (U) Normal mg/dl Normal [facility] White blood cell (WBC) count Ordered By: Ry James on 03-30-2025 WBC (Bld) [#/Vol] 10.7 10*3/uL 4.4-11.0 [facility] White blood cell countOrdere d By: Ry James on 03-30-2025 White blood cell count 0-5 SEEN /hpf 0-5 [facility] CNPNon 03-21-2025 CNPN Telephone (YULYFAMPLE) JOSHUA CHOUDHARY ([id number]) 1995 F Date Time Provider Department 03/21/25 LESA SOLER During your visit today, we recorded the following information about you: Myra Duran MA 03/21/2025 8:32 AM Signed MARIBELL Ruiz Kristin C, APRN.CNP 03/21/2025 10:13 AM Signed Thank you. Please see orders. JAMILA Kwok Kristin C, APRN.CNP 03/21/2025 10:13 AM Signed Addended by: LESA SOLER on: 03/21/2025 10:13 AM Modules accepted: Orders Myra Duran MA 03/21/2025 11:06 AM Signed Left message informing patient, phone number to reach the office was left for any questions or concerns. Myra Duran MA Allergies As of Date: 03/21/2025 (No Known Allergies) Date Reviewed: 11/27/2024 Reviewed by: Lesa Soler APRN.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 - Fully Assessed Reason for Visit: Lab Orders [1688] Primary Visit Diagnosis:Dyslipidemia [E78.5] Order(s):COMPLETE BLOOD COUNT [SQCBC] Order #: [id number] FUTURE COMPREHENSIVE METABOLIC PANEL [SQCMP] Order #: [id number] FUTURE LIPID PANEL, FASTING [SQLIPB] Order #: [id number] FUTURE Prescriptions as of 03/21/2025 - venlafaxine [...] Encounter Status:Closed by MYRA DURAN on 03/21/25 Normal [facility] Anion gap in Serum or Plasma Ordered By: Andres Loyola on 03-14-2025 Anion gap [Moles/Vol] 12 mmol/L 02-13 [facility] BUN/creatinine ratioOrdered By: Andres Loyola on 03-14-2025 Urea nitrogen/Creatinine [Mass ratio] 12.5 mg/mg 07-21 [facility] Basic Metabolic Profile (BMP )on 03-14-2025 BUN/CRE 12.5 RATIO Normal 10-20 [facility] Comment on above: Performed By: #### L 700.6800, L500.2500 ####[facility] [address] [place], [address] Calcium [Mass/Vol] 11.1 mg/dL High 7.6-11.0 [facility] Comment on above: Performed By: #### L 700.6800, L500.2500 ####[facility] [address] [place], [address] Chloride [Moles/Vol] 103 mmol/L Normal 98-108 [facility] Comment on above: Performed By: #### L 700.6800, L500.2500 ####[facility] [address] [place], [address] CO2 [Moles/Vol] 25.3 mmol/L Normal 21.0-32.0 [facility] Comment on above: Performed By: #### L 700.6800, L500.2500 ####[facility] [address] [place], [address] Creatinine [Mass/Vol] 0.77 mg/dL Normal 0.70-1.20 [facility] Comment on above: Performed By: #### L 700.6800, L500.2500 ####[facility] [address] [place], [address] ECRCL 112.39 ml/min Normal 50-250 [facility] Comment on above: Performed By: #### L 700.6800, L500.2500 ####[facility] [address] [place], [address] GAP 12 Normal 5-15 [facility] Comment on above: Performed By: #### L 700.6800, L500.2500 ####[facility] [address] [place], [address] GFR/1.73 sq M.predicted among non-blacks MDRD (S/P/Bld) [Vol rate/Area] 106 mL/min/{1.73_m2} Normal >60 [facility] Comment on above: Result Comment: mL/m in/1.73m2 CKD-EPI Creatinine Equation (2020) Performed By: #### L 700.6800, L500.2500 ####[facility] [address] [place], [address] Glucose [Mass/Vol] 147 mg/dL High 70-99 [facility] Comment on above: Performed By: #### L 700.6800, L500.2500 ####[facility] [address] [place], [address] Potassium [Moles/Vol] 3.8 mmol/L Normal 3.3-5.1 [facility] Comment on above: Performed By: #### L 700.6800, L500.2500 ####[facility] [address] [place], [address] Sodium [Moles/Vol] 140 mmol/L Normal 133-145 [facility] Comment on above: Performed By: #### L 700.6800, L500.2500 ####[facility] [address] [place], [address] Urea nitrogen [Mass/Vol] 10 mg/dL Normal 4-19 [facility] Comment on above: Performed By: #### L 700.6800, L500.2500 ####[facility] [address] [place], [address] Carbon dioxide, total [Moles /volume] in Central venous bloodOrdered By: Andres Loyola on 03-14-2025 CO2 [Moles/Vol] 25.3 mmol/L 21.0-32.0 [facility] Chloride assayOrdered By: Jonathon Loyola on 03-14-2025 Chloride [Moles/Vol] 103 mmol/L 98-108 [facility] Emergency Department Summary on 03-14-2025 Emergency Department Summary [facility] Medical Records Department [address] [place] [address] Emergency Department Summary 03/14/25 MR#: [id number] Acct: [id number] Name: JOSHUA CHOUDHARY Rep #: [id number] : 1995 30 From: Andres Pedroza PCP: [...] 0 current occupational status: employed current occupation: [employer] Smoking Status: Current every day smoker tobacco [...] Negative fo (more content not included)... Normal [facility] Glomerular filtration rate ( GFR) estimation/1.73 sq m using serum, plasma, or whole bOrdered By: Andres Loyola on 03-14-2025 GFR/1.73 sq M.predicted among non-blacks MDRD (S/P/Bld) [Vol rate/Area] 106 mL/min/{1.73_m2} >60 [facility] Comment on above: mL/min/1.73m2 CKD-EP I Creatinine Equation (2020) Potassium measurement (mass/ volume)Ordered By: Andres Loyola on 03-14-2025 Potassium (Unsp spec) [Mass/Vol] 3.8 mmol/L 3.3-5.1 [facility] ,Serum,hCG Quali.on 03-14-2025 HCG, SERUM QUAL Negative Normal [facility] Comment on above: Performed By: #### L 700.6800, L500.2500 ####[facility] [address] [place], [place], [address] Serum beta-hCG test, qualita tiveOrdered By: Andres Loyola on 03-14-2025 Beta HCG ( test) Ql Negative [facility] Serum creatinine measurement (mass/volume)Ordered By: Andres Loyola on 03-14-2025 Creatinine [Mass/Vol] 0.77 mg/dL 0.70-1.20 [facility] Serum glucose measurement (m ass/volume)Ordered By: Andres Loyola on 03-14-2025 Glucose [Mass/Vol] 147 mg/dL High 70-99 [facility] Serum or plasma calcium prakash urement (mass/volume)Ordered By: Andres Loyola on 03-14-2025 Calcium [Mass/Vol] 11.1 mg/dL High 7.6-11.0 [facility] Serum or plasma urea nitroge n measurement (mass/volume)Ordered By: Andres Loyola on 03-14-2025 Urea nitrogen [Mass/Vol] 10 mg/dL 4-19 [facility] Sodium levelOrdered By: Andres Loyola on 03-14-2025 Sodium [Moles/Vol] 140 mmol/L 133-145 [facility] ED Prov Noteon 02-08-2025 ED Prov [...] are negative. PAST HISTORY Past Medical History: @[facility] Past Surgical History: has no past surgical [...] day as needed for itching . Follow-up: [facility] [address] [facility] [address] [facility] [id number] In 3 days Final Impression: 1. Panic attack (Please note that portions of this note were completed with a voice recognition program. Efforts were made to edit the dictations but occasionally words are mis-transcribed.) Wu Crisostomo MD 02/08/25 0854 AUTHENTICATED BY WU CRISOSTOMO, ON 02/08/2025 08:54:48 Normal [facility] Absolute lymphocyte countOrd ered By: Juan Tapia on 02-06-2025 Lymphocytes Auto (Unsp spec) [#/Vol] 2.06 10*3/uL 0.83-4.51 [facility] Absolute neutrophil countOrd ered By: Juan Tapia on 02-06-2025 Neutrophils (Bld) [#/Vol] 12.2 10*3/uL High 2.0-7.7 [facility] Alcohol, Blood (Medical)-Ser umon 02-06-2025 SERUM ETOH < 10.1 Normal <=10.0 [facility] Comment on above: Result Comment: Hemo lysis Present, Results may be affected. This test is for medical purposes only. The legal definition of intoxication varies according to local law. Performed By: #### L 505.5000, L501.9100, L501.2450, L700.6800, L100.0100, L500.4050 #### [facility] [address] [place], [place], [address] Amphetamine detection with 1 000 ng/mL as cutoffOrdered By: Juan Tapia on 02-06-2025 Amphetamines Screen method >1000 ng/mL Ql (U) Negative < 200 ng/mL [facility] Anion gap in Serum or Plasma Ordered By: Juan Tapia on 02-06-2025 Anion gap [Moles/Vol] 11 mmol/L 5-15 [facility] Automated lymphocyte count a s percentage of total leukocytesOrdered By: Juan Tapia on 02-06-2025 Lymphocytes/100 WBC Auto (Unsp spec) 13.9 % Low 19-41 [facility] BUN/creatinine ratioOrdered By: Juan Tapia on 02-06-2025 Urea nitrogen/Creatinine [Mass ratio] 9.7 mg/mg Low 10-20 [facility] Basophil percentageOrdered B y: Juan Tapia on 02-06-2025 Basophils/100 WBC (Bld) 0.2 % 0-1 [facility] Bilirubin, totalOrdered By: Juan Tapia on 02-06-2025 Bilirubin [Mass/Vol] 0.41 mg/dL 0.00-1.30 [facility] CBC W/Diff, Automatedon Absolute Lymph 2.06 X10 3/uL Normal 0.83-4.51 [facility] Comment on above: Performed By: #### L 505.5000, L501.9100, L501.2450, L700.6800, L100.0100, L500.4050 #### [facility] [address] [place], [address] Absolute Neut 12.2 X10 3/uL High 2.0-7.7 [facility] Comment on above: Performed By: #### L 505.5000, L501.9100, L501.2450, L700.6800, L100.0100, L500.4050 #### [facility] [address] [place], [address] Basophils/100 WBC (Bld) 0.2 % Normal 0-1 [facility] Comment on above: Performed By: #### L 505.5000, L501.9100, L501.2450, L700.6800, L100.0100, L500.4050 #### [facility] [address] [place], [address] Eosinophils/100 WBC (Bld) 0.0 % Normal 0-5 [facility] Comment on above: Performed By: #### L 505.5000, L501.9100, L501.2450, L700.6800, L100.0100, L500.4050 #### [facility] [address] [place], [address] Erythrocyte distribution width (RBC) [Ratio] 13.2 % Normal 11.6-14.6 [facility] Comment on above: Performed By: #### L 505.5000, L501.9100, L501.2450, L700.6800, L100.0100, L500.4050 #### [facility] [address] [place], [address] Hematocrit (Bld) [Volume fraction] 40.4 % Normal 37-47 [facility] Comment on above: Performed By: #### L 505.5000, L501.9100, L501.2450, L700.6800, L100.0100, L500.4050 #### [facility] [address] [place], [address] Hemoglobin (Bld) [Mass/Vol] 13.5 g/dL Normal 12.0-15.0 [facility] Comment on above: Performed By: #### L 505.5000, L501.9100, L501.2450, L700.6800, L100.0100, L500.4050 #### [facility] [address] [place], [address] IG% 0.800 Normal 0.0-0.9 [facility] Comment on above: Result Comment: IG% - Immature Granulocytes (promyelocytes, myelocytes and metamyelocytes) > 1% indicates that a LEFT SHIFT is Present. Performed By: #### L 505.5000, L501.9100, L501.2450, L700.6800, L100.0100, L500.4050 #### [facility] [address] [place], [address] Lymphocytes/100 WBC (Bld) 13.9 % Low 19-41 [facility] Comment on above: Performed By: #### L 505.5000, L501.9100, L501.2450, L700.6800, L100.0100, L500.4050 #### [facility] [address] [place], [address] MCH (RBC) [Entitic mass] 28.7 pg Normal 27.0-32.0 [facility] Comment on above: Performed By: #### L 505.5000, L501.9100, L501.2450, L700.6800, L100.0100, L500.4050 #### [facility] [address] [place], [address] MCHC (RBC) [Mass/Vol] 33.4 g/dL Normal 32-36 [facility] Comment on above: Performed By: #### L 505.5000, L501.9100, L501.2450, L700.6800, L100.0100, L500.4050 #### [facility] [address] [place], [address] MCV (RBC) [Entitic vol] 85.8 fL Normal 81-99 [facility] Comment on above: Performed By: #### L 505.5000, L501.9100, L501.2450, L700.6800, L100.0100, L500.4050 #### [facility] [address] [place], [address] Monocytes/100 WBC (Bld) 2.3 % Normal 0-10 [facility] Comment on above: Performed By: #### L 505.5000, L501.9100, L501.2450, L700.6800, L100.0100, L500.4050 #### [facility] [address] [place], [address] Neutrophils/100 WBC (Bld) 82.8 % High 47-70 [facility] Comment on above: Performed By: #### L 505.5000, L501.9100, L501.2450, L700.6800, L100.0100, L500.4050 #### [facility] [address] [place], [address] Nucleated RBC (Bld) [#/Vol] 0 10*3/uL Normal 0-5 [facility] Comment on above: Performed By: #### L 505.5000, L501.9100, L501.2450, L700.6800, L100.0100, L500.4050 #### [facility] [address] [place], [address] Platelet mean volume (Bld) [Entitic vol] 11.3 fL Normal 6.2-12.0 [facility] Comment on above: Performed By: #### L 505.5000, L501.9100, L501.2450, L700.6800, L100.0100, L500.4050 #### [facility] [address] [place], [address] Platelets (Bld) [#/Vol] 324 10*3/uL Normal 150-450 [facility] Comment on above: Performed By: #### L 505.5000, L501.9100, L501.2450, L700.6800, L100.0100, L500.4050 #### [facility] [address] [place], [address] RBC (Bld) [#/Vol] 4.71 10*6/uL Normal 4.2-5.4 [facility] Comment on above: Performed By: #### L 505.5000, L501.9100, L501.2450, L700.6800, L100.0100, L500.4050 #### [facility] [address] [place], [address] RDW SD 41.2 fl Normal 35.1-43.9 [facility] Comment on above: Performed By: #### L 505.5000, L501.9100, L501.2450, L700.6800, L100.0100, L500.4050 #### [facility] [address] [place], [address] WBC (Bld) [#/Vol] 14.8 10*3/uL High 4.4-11.0 [facility] Comment on above: Performed By: #### L 505.5000, L501.9100, L501.2450, L700.6800, L100.0100, L500.4050 #### [facility] [address] [place], [address] Carbon dioxide, total [Moles /volume] in Central venous bloodOrdered By: Juan Tapia on 02-06-2025 CO2 [Moles/Vol] 25.0 mmol/L 21.0-32.0 [facility] Chloride assayOrdered By: Luisito Tapia on 02-06-2025 Chloride [Moles/Vol] 105 mmol/L 98-108 [facility] Comprehensive Metabolic Prof ilon 02-06-2025 Albumin [Mass/Vol] 4.7 g/dL Normal 3.5-5.0 [facility] Comment on above: Performed By: #### L 505.5000, L501.9100, L501.2450, L700.6800, L100.0100, L500.4050 #### [facility] [address] [place], [address] Albumin/Globulin [Mass ratio] 1.5 {ratio} Normal 0.9-2.4 [facility] Comment on above: Performed By: #### L 505.5000, L501.9100, L501.2450, L700.6800, L100.0100, L500.4050 #### [facility] [address] [place], [address] ALK PHOS 65 U/L Normal 35-104 [facility] Comment on above: Performed By: #### L 505.5000, L501.9100, L501.2450, L700.6800, L100.0100, L500.4050 #### [facility] [address] [place], [address] ALT [Catalytic activity/Vol] 23 U/L Normal <=34 [facility] Comment on above: Performed By: #### L 505.5000, L501.9100, L501.2450, L700.6800, L100.0100, L500.4050 #### [facility] [address] [place], [address] AST [Catalytic activity/Vol] 27 U/L Normal <=31 [facility] Comment on above: Performed By: #### L 505.5000, L501.9100, L501.2450, L700.6800, L100.0100, L500.4050 #### [facility] [address] [place], [address] Bilirubin [Mass/Vol] 0.41 mg/dL Normal 0.00-1.30 [facility] Comment on above: Performed By: #### L 505.5000, L501.9100, L501.2450, L700.6800, L100.0100, L500.4050 #### [facility] [address] [place], [address] BUN/CRE 9.7 RATIO Low 10-20 [facility] Comment on above: Performed By: #### L 505.5000, L501.9100, L501.2450, L700.6800, L100.0100, L500.4050 #### [facility] [address] [place], [address] Calcium [Mass/Vol] 11.2 mg/dL High 7.6-11.0 [facility] Comment on above: Performed By: #### L 505.5000, L501.9100, L501.2450, L700.6800, L100.0100, L500.4050 #### [facility] [address] [place], [address] Chloride [Moles/Vol] 105 mmol/L Normal 98-108 [facility] Comment on above: Performed By: #### L 505.5000, L501.9100, L501.2450, L700.6800, L100.0100, L500.4050 #### [facility] [address] [place], [address] CO2 [Moles/Vol] 25.0 mmol/L Normal 21.0-32.0 [facility] Comment on above: Performed By: #### L 505.5000, L501.9100, L501.2450, L700.6800, L100.0100, L500.4050 #### [facility] [address] [place], [address] Creatinine [Mass/Vol] 0.82 mg/dL Normal 0.70-1.20 [facility] Comment on above: Performed By: #### L 505.5000, L501.9100, L501.2450, L700.6800, L100.0100, L500.4050 #### [facility] [address] [place], [address] ECRCL 106.76 ml/min Normal 50-250 [facility] Comment on above: Performed By: #### L 505.5000, L501.9100, L501.2450, L700.6800, L100.0100, L500.4050 #### [facility] [address] [place], [address] GAP 11 Normal 5-15 [facility] Comment on above: Performed By: #### L 505.5000, L501.9100, L501.2450, L700.6800, L100.0100, L500.4050 #### [facility] [address] [place], [address] GFR/1.73 sq M.predicted among non-blacks MDRD (S/P/Bld) [Vol rate/Area] 97 mL/min/{1.73_m2} Normal >60 [facility] Comment on above: Result Comment: mL/m in/1.73m2 CKD-EPI Creatinine Equation (2020) Performed By: #### L 505.5000, L501.9100, L501.2450, L700.6800, L100.0100, L500.4050 #### [facility] [address] [place], [address] Globulin (S) [Mass/Vol] 3.2 g/dL Normal 2.2-4.2 [facility] Comment on above: Performed By: #### L 505.5000, L501.9100, L501.2450, L700.6800, L100.0100, L500.4050 #### [facility] [address] [place], [address] Glucose [Mass/Vol] 177 mg/dL High 70-99 [facility] Comment on above: Performed By: #### L 505.5000, L501.9100, L501.2450, L700.6800, L100.0100, L500.4050 #### [facility] [address] [place], [address] Potassium [Moles/Vol] 4.7 mmol/L Normal 3.3-5.1 [facility] Comment on above: Performed By: #### L 505.5000, L501.9100, L501.2450, L700.6800, L100.0100, L500.4050 #### [facility] [address] [place] [place], [address] Sodium [Moles/Vol] 141 mmol/L Normal 133-145 [facility] Comment on above: Performed By: #### L 505.5000, L501.9100, L501.2450, L700.6800, L100.0100, L500.4050 #### [facility] [address] [place], [address] T PROT 7.9 g/dL Normal 5.9-8.4 [facility] Comment on above: Performed By: #### L 505.5000, L501.9100, L501.2450, L700.6800, L100.0100, L500.4050 #### [facility] [address] [place] [place], [address] Urea nitrogen [Mass/Vol] 8 mg/dL Normal 4-19 [facility] Comment on above: Performed By: #### L 505.5000, L501.9100, L501.2450, L700.6800, L100.0100, L500.4050 #### [facility] [address] [place], [address] Emergency Department Summary on 02-06-2025 Emergency Department Summary [facility] Medical Records Department [address] [place] [address] Emergency Department Summary 02/06/25 MR#: [id number] Acct: [id number] Name: JOSHUA CHOUDHARY Rep #: [id number] : 1995 30 From: Juan Tapia MD [...] states she wants her panic to stop. [facility] Medical History Anxiety disorder [...] 0 current occupational status: employed current occupation: [employer] Smoking Status: Never smoker Smokeless tobacco [...] Upon repea (more content not included)... Normal [facility] Eosinophil percentageOrdered By: Juan Tapia on 02-06-2025 Eosinophils/100 WBC (Bld) 0.0 % 0-5 [facility] Erythrocyte distribution wid th ratioOrdered By: Juan Tapia on 02-06-2025 Erythrocyte distribution width (RBC) [Ratio] 13.2 % 11.6-14.6 [facility] Erythrocyte distribution wid th standard deviationOrdered By: Juan Tapia on 02-06-2025 Erythrocyte distribution width (RBC) [Ratio] 41.2 fl 35.1-43.9 [facility] Glomerular filtration rate ( GFR) estimation/1.73 sq m using serum, plasma, or whole bOrdered By: Juan Tapia on 02-06-2025 GFR/1.73 sq M.predicted among non-blacks MDRD (S/P/Bld) [Vol rate/Area] 97 mL/min/{1.73_m2} >60 [facility] Comment on above: mL/min/1.73m2 CKD-EP I Creatinine Equation (2020) Hematocrit Auto (Bld) [Volum e fraction]Ordered By: Juan Tapia on 02-06-2025 Hematocrit (Bld) [Volume fraction] 40.4 % 37-47 [facility] Hemoglobin measurementOrdere d By: Juan Tapia on 02-06-2025 Hemoglobin (Bld) [Mass/Vol] 13.5 g/dL 12.0-15.0 [facility] Immature granulocytes/100 WB C Auto (Bld)Ordered By: Juan Tapia on 02-06-2025 Immature granulocytes/100 WBC (Bld) 0.800 % 0.0-0.9 [facility] Comment on above: IG% - Immature Granu locytes (promyelocytes, myelocytes and metamyelocytes) > 1% indicates that a LEFT SHIFT is Present. Laboratory - Chemistry and C hemistry - challengeOrdered By: Juan Tapia on 02-06-2025 AST [Catalytic activity/Vol] 27 U/L <32 [facility] Lipaseon 05-08-2025 Lipase [Catalytic activity/Vol] 20 U/L Normal 13-75 [facility] Comment on above: Result Comment: Jose porter note: LIPASE revised reference range effective 23. New Lipase methodology. Expected to produce lower values than the previous assay method. NEW Reference Range: 13 - 75 U/L Performed By: #### L 505.5000, L501.9100, L501.2450, L700.6800, L100.0100, L500.4050 #### [facility] [address] [place], [address] Lipase measurementOrdered By : Juan Tapia on 02-06-2025 Lipase [Catalytic activity/Vol] 20 U/L 13-75 [facility] Comment on above: Please note:LIPASE r evised reference range effective 23. New Lipase methodology. Expected to produce lower values than the previous assay method. NEW Reference Range: 13 - 75 U/L MCV (mean corpuscular volume ) determinationOrdered By: Juan Tapia on 02-06-2025 MCV (RBC) [Entitic vol] 85.8 fL 81-99 [facility] Mean corpuscular hemoglobin (MCH) determinationOrdered By: Juan Tapia on 02-06-2025 MCH (RBC) [Entitic mass] 28.7 pg 27.0-32.0 [facility] Mean corpuscular hemoglobin concentration (MCHC) determinationOrdered By: Juan Tapia on 02-06-2025 MCHC (RBC) [Mass/Vol] 33.4 g/dL 32-36 [facility] Mean platelet volume determi nationOrdered By: Juan Tapia on 02-06-2025 Platelet mean volume (Bld) [Entitic vol] 11.3 fL 6.2-12.0 [facility] Monocyte percentageOrdered B y: Juan Tapia on 02-06-2025 Monocytes/100 WBC (Bld) 2.3 % 0-10 [facility] Neutrophil percentageOrdered By: Juan Tapia on 02-06-2025 Neutrophils/100 WBC (Bld) 82.8 % High 47-70 [facility] No Panel InformationOrdered By: Juan Tapia on 02-06-2025 Urine Buprenorphine Qualitative Negative < 200 ng/mL [facility] Urine Oxycodone Screen Negative < 100 ng/mL [facility] Nucleated red blood cell per centageOrdered By: Juan Tapia on 02-06-2025 Nucleated RBC/100 WBC (Bld) [Ratio] 0 % 0-5 [facility] Platelet countOrdered By: Luisito Tapia on 02-06-2025 Platelets (Bld) [#/Vol] 324 10*3/uL 150-450 [facility] Potassium measurement (mass/ volume)Ordered By: Juan Tapia on 02-06-2025 Potassium (Unsp spec) [Mass/Vol] 4.7 mmol/L 3.3-5.1 [facility] ,Serum,hCG Quali.on 02-06-2025 HCG, SERUM QUAL Negative Normal [facility] Comment on above: Performed By: #### L 505.5000, L501.9100, L501.2450, L700.6800, L100.0100, L500.4050 #### [facility] [address] [place], [place], [id number] Quantitative urine opiates m easurementOrdered By: Juan Tapia on 02-06-2025 Opiates Ql (U) Negative < 300 ng/mL [facility] RBC Auto (Bld) [#/Vol]Ordere d By: Juan Tapia on 02-06-2025 RBC (Bld) [#/Vol] 4.71 10*6/uL 4.2-5.4 [facility] Screening urine fentanyl cally surementOrdered By: Juan Tapia on 02-06-2025 fentaNYL Screen Ql (U) Negative [facility] Serum beta-hCG test, qualita tiveOrdered By: Juan Tapia on 02-06-2025 Beta HCG ( test) Ql Negative [facility] Serum creatinine measurement (mass/volume)Ordered By: Juan Tapia on 02-06-2025 Creatinine [Mass/Vol] 0.82 mg/dL 0.70-1.20 [facility] Serum globulin measurementOr dered By: Juan Tapia on 02-06-2025 Globulin (S) [Mass/Vol] 3.2 g/dL 2.2-4.2 [facility] Serum glucose measurement (m ass/volume)Ordered By: Juan Tapia on 02-06-2025 Glucose [Mass/Vol] 177 mg/dL High 70-99 [facility] Serum or plasma alanine peterson otransferase (ALT) measurementOrdered By: Juan Tapia on 02-06-2025 ALT [Catalytic activity/Vol] 23 U/L <35 [facility] Serum or plasma albumin prakash urement (mass/volume)Ordered By: Juan Tapia on 02-06-2025 Albumin [Mass/Vol] 4.7 g/dL 3.5-5.0 [facility] Serum or plasma albumin/glob ulin mass ratioOrdered By: Juan Tapia on 02-06-2025 Albumin/Globulin [Mass ratio] 1.5 {ratio} 0.9-2.4 [facility] Serum or plasma alkaline frandy sphatase measurementOrdered By: Juan Tapia on 02-06-2025 ALP [Catalytic activity/Vol] 65 U/L 35-104 [facility] Serum or plasma calcium prakash urement (mass/volume)Ordered By: Juan Tapia on 02-06-2025 Calcium [Mass/Vol] 11.2 mg/dL High 7.6-11.0 [facility] Serum or plasma ethanol prakash urement (mass/volume)Ordered By: Juan Tapia on 02-06-2025 Ethanol [Mass/Vol] mg/dL <10.1 [facility] Comment on above: Hemolysis Present, R esults may be affected.This test is for medical purposes only. The legal definition of intoxication varies according to local law. Serum or plasma urea nitroge n measurement (mass/volume)Ordered By: Juan Tapia on 02-06-2025 Urea nitrogen [Mass/Vol] 8 mg/dL 4-19 [facility] Sodium levelOrdered By: Juan Tapia on 02-06-2025 Sodium [Moles/Vol] 141 mmol/L 133-145 [facility] Total proteinOrdered By: Tessy Tapia on 02-06-2025 Protein [Mass/Vol] 7.9 g/dL 5.9-8.4 [facility] Urine Drug Screen (VISTA)on 02-06-2025 AMPHETAMINES Negative Normal <1000 ng/mL [facility] Comment on above: Performed By: #### L 505.5000, L501.9100, L501.2450, L700.6800, L100.0100, L500.4050 ####[facility] [address] [place], [address] BARBITIURATES Negative Normal < 200 ng/mL [facility] Comment on above: Performed By: #### L 505.5000, L501.9100, L501.2450, L700.6800, L100.0100, L500.4050 ####[facility] [address] [place], [address] BENZODIAZIPINE Negative Normal < 200 ng/mL [facility] Comment on above: Performed By: #### L 505.5000, L501.9100, L501.2450, L700.6800, L100.0100, L500.4050 ####[facility] [address] [place], [address] BUP Ur Drug Scr Negative Normal < 200 ng/mL [facility] Comment on above: Performed By: #### L 505.5000, L501.9100, L501.2450, L700.6800, L100.0100, L500.4050 ####[facility] [address] [place], [address] COCAINE Negative Normal < 300 ng/mL [facility] Comment on above: Performed By: #### L 505.5000, L501.9100, L501.2450, L700.6800, L100.0100, L500.4050 ####[facility] [address] [place], [address] Fentanyl Negative Normal [facility] Comment on above: Performed By: #### L 505.5000, L501.9100, L501.2450, L700.6800, L100.0100, L500.4050 ####[facility] [address] [place], [place], [phone] METHADONE Negative Normal < 300 ng/mL [facility] Comment on above: Performed By: #### L 505.5000, L501.9100, L501.2450, L700.6800, L100.0100, L500.4050 ####[facility] [address] [place], [address] OPIATES Negative Normal < 300 ng/mL [facility] Comment on above: Performed By: #### L 505.5000, L501.9100, L501.2450, L700.6800, L100.0100, L500.4050 ####[facility] [address] [place], [place], [phone] OXYCODONE Negative Normal < 100 ng/mL [facility] Comment on above: Performed By: #### L 505.5000, L501.9100, L501.2450, L700.6800, L100.0100, L500.4050 ####[facility] [address] [place], [place], [phone] PCP Negative Normal < 25 ng/mL [facility] Comment on above: Performed By: #### L 505.5000, L501.9100, L501.2450, L700.6800, L100.0100, L500.4050 ####[facility] [address] [place], [place], [phone] THC Positive Normal < 50 ng/mL [facility] Comment on above: Result Comment: If c onfirmation testing is needed, a separate order will be required to send out testing to the reference laboratory. Performed By: #### L 505.5000, L501.9100, L501.2450, L700.6800, L100.0100, L500.4050 ####[facility] [address] [place], [address] Urine benzodiazepine levelOr dered By: Juan Tapia on 02-06-2025 Benzodiazepines Ql (U) Negative < 200 ng/mL [facility] Urine cocaine levelOrdered B y: Juan Tapia on 02-06-2025 Cocaine Ql (U) Negative < 300 ng/mL [facility] Urine hzzuh-9-wiorjphfkguold abinol (THC) measurementOrdered By: Juan Tapia on 02-06-2025 Cannabinoids Screen Ql (U) Positive < 50 ng/mL [facility] Comment on above: If confirmation test ing is needed, a separate order will be required to send out testing to the reference laboratory. Urine phencyclidine (PCP) de tectionOrdered By: Juan Tapia on 02-06-2025 Phencyclidine Ql (U) Negative < 25 ng/mL [facility] White blood cell (WBC) count Ordered By: Juan Tapia on 02-06-2025 WBC (Bld) [#/Vol] 14.8 10*3/uL High 4.4-11.0 [facility] ALBUMIN/CREATININE RATIO, UR INEon 11-09-2024 Albumin Unsp time DL <= 20 mg/L (U) [Mass/Time] 16.8 mg/L [facility] Albumin/Creatinine (U) [Mass ratio] 4 mg/g NINF - 30 mg/g [facility] Comment on above: Adult Male and [...] 476.6 mg/dL High 42.2 - 237.9 mg/dL [facility] Interpretation and review of laboratory results Abnormal [facility] ALBUMIN/CREATININE RATIO, UR INEon 11-08-2024 Albumin Unsp time DL <= 20 mg/L (U) [Mass/Time] 16.8 mg/L Normal [facility] Comment on above: Order Comment: Speci men Type: URINE SPECIMENOrdering Facility: [facility] Address: [address] [place] [address] Performed By: #### U ACR ####[facility] LABORATORYCLIA [id number] [address] [place] Albumin/Creatinine (U) [Mass ratio] 4 mg/g Normal <30 [facility] Comment on above: Order Comment: Speci men Type: URINE SPECIMENOrdering Facility: [facility] Address: [address] [place] [address] Result Comment: Adul t Male and Female Nephrotic Criteria: <30 mg/g is considered normal to mildly increased 30-300 mg/g is considered moderately increased >300 mg/g is considered severely increased KDIGO. (2013). KDIGO 2012 Clinical Practice Guideline for the Evaluation and Management of Chronic Kidney Disease. Official Journal of the International Society of Nephrology, 3(1), 1-150. Performed By: #### U ACR ####[facility] LABORATORYCLIA [id number] [address] [place] Creatinine (U) [Mass/Vol] 476.6 mg/dL High 42.2-237.9 [facility] Comment on above: Order Comment: Speci men Type: URINE SPECIMENOrdering Facility: [facility] Address: [address] [id number] Performed By: #### U ACR ####[facility] LABORATORYCLIA [id number] [address] [place] CNOVon 11-08-2024 CNOV Office Visit (AGEDGARDO LOYOLA) JOSHUA CHOUDHARY ([id number]) 1995 F Date Time Provider Department 2/7/25 1:40 PM LESA SOLER During your visit today, we recorded the following information about you: Temperature Pulse Blood pressure Weight 98.1 degrees 69/minute 112/70 88 kg Height 1.676 m Lesa Soler, [employer].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 11/27/2024 1:47 PM Signed Subjective Joshua Choudhary is a 29 year old female here today for diabetes follow-up. I reviewed past medical, surgical, social, and family histories today and updated chart. Allergies, chronic medications, and supplements were also reviewed. 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 Mouth/Throat: Lips: [place]. Eyes: General: Lids are normal. Extraocular Movements: [...] 107 mmo (more content not included)... Normal [facility] CNPNon 11-08-2024 CNPN Telephone (AGFAMPLE) JOSHUA CHOUDHARY ([id number]) 1995 F Date Time Provider Department 11/08/24 [...] Encounter Status:Closed by GLORIA EVANS on 11/08/24 [facility] CNOVon 11-03-2024 CNOV Office Visit (UCWSTR ) JOSHUA CHOUDHARY ([id number]) 1995 F Date Time Provider Department 11/03/24 11:00 AM KEELY REDDY [facility] During your visit today, we recorded the following information about you: Temperature Pulse Respiration Blood pressure 99.6 degrees 77/minute 18/minute 105/71 Weight 90.7 kg Keely Reddy APRN.CNP 11/03/2024 11:56 AM Signed This note was [...] history is provided by the patient. No high school foreign language tutor was used. URI She complains of cough. [...] murmur he (more content not included)... Normal [facility] COVID AND INFLUENZA A/B AND RSV PCR, ROUTINEon 11-03-2024 SARS-CoV-2 (COVID-19) RNA MURALI+probe Ql (Unsp spec) SARS-COV-2 (AGENT OF COVID-19) RNA: Not detected INFLUENZA A RNA: Detected INFLUENZA B RNA: Not detected RESPIRATORY SYNCYTIAL VIRUS (RSV) RNA: Not detected Abnormal [facility] Comment on above: Performed By: #### 5 8410-2 #### [facility] CLIA [id number] [address] [place] [address] [place] STREP A MOLECULAR (POC)on Procedural Control Valid [facility] Strep A (POCT) Negative Negative [facility] Basic Metabolic Profile (BMP )on 09-30-2024 BUN/CRE 8.9 RATIO Low 10-20 [facility] Comment on above: Performed By: #### L 700.8000, L500.2500 ####[facility] [address] [place], [address] CA,Total 11.1 mg/dL High 8.5-10.1 [facility] Comment on above: Performed By: #### L 700.8000, L500.2500 ####[facility] [address] [place], [address] Chloride [Moles/Vol] 109 mmol/L High 98-107 [facility] Comment on above: Performed By: #### L 700.8000, L500.2500 ####[facility] [address] [place], [address] CO2 [Moles/Vol] 22.0 mmol/L Normal 21.0-32.0 [facility] Comment on above: Performed By: #### L 700.8000, L500.2500 ####[facility] [address] [place], [address] Creatinine [Mass/Vol] 1.01 mg/dL Normal 0.55-1.02 [facility] Comment on above: Result Comment: The validity of the calculated GFR GFRAA in patients over 70 years has not been determined. Clinical correlation is essential. Performed By: #### L 700.8000, L500.2500 ####[facility] [address] [place], [address] ECRCL 91.22 ml/min Normal [facility] Comment on above: Performed By: #### L 700.8000, L500.2500 ####[facility] [address] [place], [address] EST GFR - AA 82 mL/min Normal >60 [facility] Comment on above: Result Comment: Afri can Stateless GFR Calc Performed By: #### L 700.8000, L500.2500 ####[facility] [address] [place], [address] GAP 10 Normal 5-15 [facility] Comment on above: Performed By: #### L 700.8000, L500.2500 ####[facility] [address] [place], [address] GFR/1.73 sq M.predicted among non-blacks MDRD (S/P/Bld) [Vol rate/Area] 68 mL/min/{1.73_m2} Normal >60 [facility] Comment on above: Result Comment: Non- GFR Calc Performed By: #### L 700.8000, L500.2500 ####[facility] [address] [place], [address] Glucose [Mass/Vol] 167 mg/dL High 74-106 [facility] Comment on above: Result Comment: Fast ing Glucose result greater than or equal to 126 mg/dL suggests DIABETES MELLITUS per A.D.A. criteria. Performed By: #### L 700.8000, L500.2500 ####[facility] [address] [place], [address] Potassium [Moles/Vol] 3.7 mmol/L Normal 3.5-5.1 [facility] Comment on above: Result Comment: Slig ht Hemolysis, Result may be falsely increased. Performed By: #### L 700.8000, L500.2500 ####[facility] [address] [place], [address] Sodium [Moles/Vol] 140 mmol/L Normal 136-145 [facility] Comment on above: Performed By: #### L 700.8000, L500.2500 ####[facility] [address] [place], [address] Urea nitrogen [Mass/Vol] 9 mg/dL Normal 7-18 [facility] Comment on above: Performed By: #### L 700.8000, L500.2500 ####[facility] [address] [place], [address] Emergency Department Summary on 09-30-2024 Emergency Department Summary [facility] Medical Records Department [address] [place] [address] Emergency Department Summary 09/30/24 MR#: [id number] Acct: [id number] Name: JOSHUA CHOUDHARY Rep #: [id number] : 1995 29 From: Christos Esparza MD PCP: MONICA DardenC Status:REG ER Location: ED HPI History of [...] Dr. Mendez. January 2024 for dehydration ) [facility] Medical History Anxiety disorder [...] capsule,delayed 30 mg PO DAILY #14 caps 10/14/24 Unknown Rx release (Prevacid) ondansetron 4 mg [...] 0 current occupational status: employed current occupation: [employer] Smoking Status: Never smoker Smokeless [...] [employer] (more content not included)... Normal [facility] hCG Titer Quant., Serumon HCG QUANT. < 1 Normal 1-3 [facility] Comment on above: Result Comment: hCG levels with Gestational Age Gestational Age hCG mIU/mL (IU/L) 0.2 - 1 week 5 - 50 1-2 weeks 50 - 500 2-3 weeks 100 - 5000 3-4 weeks 500 - 96440 4-5 weeks 1000 - 20414 5-6 weeks 32802 - 100,000 6-8 weeks 66674 - 200,000 2-3 months 36327 - 100,000 Performed By: #### L 700.8000, L500.2500 ####[facility] [address] [place], [address] Brooks 09-19-2024 [place] Telephone (GIULIANA) JOSHUA CHOUDHARY ([id number]) 1995 F Date Time Provider Department 09/19/24 [...] Patient may choose to take fish oil rnfc-drp-apmdcyj. Recheck cholesterol in 6 months. Thank you Lesa Soler APRN.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 Allergies As of Date: 09/19/2024 (No Known Allergies) Date Reviewed: 09/11/2024 Reviewed by: Staci Givens RD - Fully Assessed Reason for Visit: Results [95] Cmt: labs Problem List As Of Date 09/19/2024 Noted Resolved Abdominal pain, epigastric [R10.13] 05/16/2017 Gallstones [K80.20] 08/28/2017 RUQ pain [R10.11] 09/28/2017 Type 2 diabetes mellitus without complication, *09/03/2024 Encounter Status:Closed by MADELYN DENT on 09/20/24 Normal [facility] CBC panel Auto (Bld)on 09-11 Erythrocyte distribution width (RBC) [Ratio] 13.8 % 11.5 - 15.0 % [facility] Hematocrit (Bld) [Volume fraction] 44.9 % 36.0 - 46.0 % [facility] Hemoglobin (Bld) [Mass/Vol] 14.8 g/dL 11.5 - 15.5 g/dL [facility] Interpretation and review of laboratory results Abnormal [facility] MCH (RBC) [Entitic mass] 29.4 pg 26.0 - 34.0 pg [facility] MCHC (RBC) [Mass/Vol] 33.0 g/dL 30.5 - 36.0 g/dL [facility] MCV (RBC) [Entitic vol] 89.1 fL 80.0 - 100.0 fL [facility] Nucleated RBC (Bld) [#/Vol] NINF [facility] Platelet mean volume (Bld) [Entitic vol] 11.8 fL 9.0 - 12.7 fL [facility] Platelets (Bld) [#/Vol] 243 10*3/uL [facility] RBC (Bld) [#/Vol] 5.04 10*6/uL 3.90 - 5.20 m/uL [facility] WBC (Bld) [#/Vol] 11.48 10*3/uL [facility] Erythrocyte distribution width (RBC) [Ratio] 13.8 % Normal 11.5-15.0 [facility] Comment on above: Order Comment: Speci men Type: BLOOD SPECIMEN [facility] Address: [address] [place], [place] [id number] Performed By: #### 5 8410-2 #### [facility] CLIA [id number] [address] [place], [place] [address] [place] Hematocrit (Bld) [Volume fraction] 44.9 % Normal 36.0-46.0 [facility] Comment on above: Order Comment: Speci men Type: BLOOD SPECIMEN Ordering Facility: [facility] Address: [address] [place] [address] Performed By: #### 5 8410-2 #### [facility] CLIA [id number] [address] [place] [address] [place] Hemoglobin (Bld) [Mass/Vol] 14.8 g/dL Normal 11.5-15.5 [facility] Comment on above: Order Comment: Speci men Type: BLOOD SPECIMEN Ordering Facility: [facility] Address: [address] [place] [address] Performed By: #### 5 8410-2 #### [facility] CLIA [id number] [address] [place] [address] [place] MCH (RBC) [Entitic mass] 29.4 pg Normal 26.0-34.0 [facility] Comment on above: Order Comment: Speci men Type: BLOOD SPECIMEN Ordering Facility: [facility] Address: [address] [place] [address] Performed By: #### 5 8410-2 #### [facility] CLIA [id number] [address] [place] [address] [place] MCHC (RBC) [Mass/Vol] 33.0 g/dL Normal 30.5-36.0 [facility] Comment on above: Order Comment: Speci men Type: BLOOD SPECIMEN Ordering Facility: [facility] Address: [address] [place] [address] Performed By: #### 5 8410-2 #### [facility] CLIA [id number] [address] [place] [address] [place] MCV (RBC) [Entitic vol] 89.1 fL Normal 80.0-100.0 [facility] Comment on above: Order Comment: Speci men Type: BLOOD SPECIMEN Ordering Facility: [facility] Address: [address] [place] [address] Performed By: #### 5 8410-2 #### [facility] CLIA [id number] [address] [place] [address] [place] Nucleated RBC (Bld) [#/Vol] 10*3/uL Normal <0.01 [facility] Comment on above: Order Comment: Speci men Type: BLOOD SPECIMEN Ordering Facility: [facility] Address: [address] [place] [address] Performed By: #### 5 8410-2 #### [facility] CLIA [id number] [address] [place] [address] [place] Platelet mean volume (Bld) [Entitic vol] 11.8 fL Normal 9.0-12.7 [facility] Comment on above: Order Comment: Speci men Type: BLOOD SPECIMEN Ordering Facility: [facility] Address: [address] [place] [address] Performed By: #### 5 8410-2 #### [facility] CLIA [id number] [address] [place] [address] [place] Platelets (Bld) [#/Vol] 243 10*3/uL Normal 150-400 [facility] Comment on above: Order Comment: Speci men Type: BLOOD SPECIMEN Ordering Facility: [facility] Address: [address] [place] [address] Performed By: #### 5 8410-2 #### [facility] CLIA [id number] [address] [place] [address] [place] RBC (Bld) [#/Vol] 5.04 10*6/uL Normal 3.90-5.20 [facility] Comment on above: Order Comment: Speci men Type: BLOOD SPECIMEN Ordering Facility: [facility] Address: [address] [place] [address] Performed By: #### 5 8410-2 #### [facility] CLIA [id number] [address] [place] [address] [place] WBC (Bld) [#/Vol] 11.48 10*3/uL High 3.70-11.00 [facility] Comment on above: Order Comment: Speci men Type: BLOOD SPECIMEN Ordering Facility: [facility] Address: [address] [place] [address] Performed By: #### 5 8410-2 #### [facility] CLIA [id number] [address] [place] [address] [place] Comprehensive metabolic 2000 panelon 09-11-2024 Albumin [Mass/Vol] 4.5 g/dL 3.9 - 4.9 g/dL [facility] ALP [Catalytic activity/Vol] 62 U/L 34 - 123 U/L [facility] ALT [Catalytic activity/Vol] 26 U/L 7 - 38 U/L [facility] Anion gap [Moles/Vol] 11 mmol/L 8 - 15 mmol/L [facility] AST [Catalytic activity/Vol] 24 U/L 13 - 35 U/L [facility] Bilirubin [Mass/Vol] 0.3 mg/dL 0.2 - 1 .3 mg/dL [facility] Calcium [Mass/Vol] 10.5 mg/dL High 8.5 - 10. 2 mg/dL [facility] Chloride [Moles/Vol] 105 mmol/L 98 - 10 7 mmol/L [facility] CO2 [Moles/Vol] 26 mmol/L 22 - 30 mmol/L [facility] Creatinine [Mass/Vol] 0.88 mg/dL 0.58 - 0.96 mg/dL [facility] GFR/1.73 sq M.predicted among non-blacks MDRD (S/P/Bld) [Vol rate/Area] 90 mL/min/{1.73_m2} - PINF [facility] Comment on above: Estimated Glomerular Filtration [...] [Mass/Vol] 86 mg/dL 74 - 99 mg/dL [facility] Comment on above: The Stateless Diabete s Association (ADA) provides guidance for [...] Standards of Medical Care in Diabetes 2016, Stateless Diabetes Association. Diabetes Care. 2016.39(Suppl 1). Potassium [Moles/Vol] 4.2 mmol/L 3.7 - 5.1 mmol/L [facility] Protein [Mass/Vol] 7.2 g/dL 6.3 - 8.0 g/dL [facility] Sodium [Moles/Vol] 142 mmol/L 136 - 144 mmol/L [facility] Urea nitrogen [Mass/Vol] 5 mg/dL Low 7 - 21 mg/dL [facility] Albumin [Mass/Vol] 4.5 g/dL Normal 3.9-4.9 [facility] Comment on above: Order Comment: Yelena collins Type: BLOOD SPECIMEN Ordering Facility: [facility] Address: [address] [place] [address] Performed By: #### 2 4331-1, 28946-9, 3040-3, 3016-3 #### [facility] CLIA [id number] [address] [place] [address] [place] ALP [Catalytic activity/Vol] 62 U/L Normal 34-123 [facility] Comment on above: Order Comment: Yelena collins Type: BLOOD SPECIMEN Ordering Facility: [facility] Address: [address] [place] [address] Performed By: #### 2 4331-1, 38057-6, 3040-3, 3016-3 #### [facility] CLIA [id number] [address] [place] [address] [place] ALT [Catalytic activity/Vol] 26 U/L Normal 7-38 [facility] Comment on above: Order Comment: Speci men Type: BLOOD SPECIMEN Ordering Facility: [facility] Address: [address] [place] [address] Performed By: #### 2 4331-1, 31304-1, 3040-3, 3016-3 #### [facility] CLIA [id number] [address] [place] [address] [place] Anion gap [Moles/Vol] 11 mmol/L Normal 8-15 [facility] Comment on above: Order Comment: Speci men Type: BLOOD SPECIMEN Ordering Facility: [facility] Address: [address] [place] [address] Performed By: #### 2 4331-1, 85322-4, 3040-3, 3016-3 #### [facility] CLIA [id number] [address] [place] [address] [place] AST [Catalytic activity/Vol] 24 U/L Normal 13-35 [facility] Comment on above: Order Comment: Speci men Type: BLOOD SPECIMEN Ordering Facility: [facility] Address: [address] [place] [address] Performed By: #### 2 4331-1, 10526-5, 3040-3, 3016-3 #### [facility] CLIA [id number] [address] [place] [address] [place] Bilirubin [Mass/Vol] 0.3 mg/dL Normal 0.2-1.3 [facility] Comment on above: Order Comment: Speci men Type: BLOOD SPECIMEN Ordering Facility: [facility] Address: [address] [place] [address] Performed By: #### 2 4331-1, 47856-5, 3040-3, 3016-3 #### [facility] CLIA [id number] [address] [place] [address] [place] Calcium [Mass/Vol] 10.5 mg/dL High 8.5-10.2 [facility] Comment on above: Order Comment: Speci men Type: BLOOD SPECIMEN Ordering Facility: [facility] Address: [address] [place] [address] Performed By: #### 2 4331-1, 27938-1, 3040-3, 3016-3 #### [facility] CLIA [id number] [address] [place] [address] [place] Chloride [Moles/Vol] 105 mmol/L Normal 98-107 [facility] Comment on above: Order Comment: Speci men Type: BLOOD SPECIMEN Ordering Facility: [facility] Address: [address] [place] [address] Performed By: #### 2 4331-1, 16804-4, 3040-3, 3016-3 #### [facility] CLIA [id number] [address] [place] [address] [place] CO2 [Moles/Vol] 26 mmol/L Normal 22-30 [facility] Comment on above: Order Comment: Speci men Type: BLOOD SPECIMEN Ordering Facility: [facility] Address: [address] [place] [address] Performed By: #### 2 4331-1, 05844-8, 3040-3, 3016-3 #### [facility] CLIA [id number] [address] [place] [address] [place] Creatinine [Mass/Vol] 0.88 mg/dL Normal 0.58-0.96 [facility] Comment on above: Order Comment: Speci men Type: BLOOD SPECIMEN Ordering Facility: [facility] Address: [address] [place] [address] Performed By: #### 2 4331-1, 64080-8, 3040-3, 3016-3 #### [facility] CLIA [id number] [address] [place] [address] [place] Creatinine and Glomerular filtration rate.predicted panel (S/P/Bld) 90 mL/min/1.73m??? Normal >=60 [facility] Comment on above: Order Comment: Yelena collins Type: BLOOD SPECIMEN Ordering Facility: [facility] Address: [address] [place] [address] Result Comment: Ely mated Glomerular Filtration Rate [...] actual GFR. Performed By: #### 2 4331-1, 08570-1, 3040-3, 3016-3 #### [facility] CLIA [id number] [address] [place] [address] [place] Glucose [Mass/Vol] 86 mg/dL Normal 74-99 [facility] Comment on above: Order Comment: Yelena collins Type: BLOOD SPECIMEN Ordering Facility: [facility] Address: [address] [place] [address] Result Comment: The Stateless Diabetes Association (ADA) provides guidance for cutoff [...] Standards of Medical Care in Diabetes 2016, Stateless Diabetes Association. Diabetes Care. 2016.39(Suppl 1). Performed By: #### 2 4331-1, 30962-8, 3040-3, 3016-3 #### [facility] CLIA [id number] [address] [place] [address] [place] Potassium [Moles/Vol] 4.2 mmol/L Normal 3.7-5.1 [facility] Comment on above: Order Comment: Speci men Type: BLOOD SPECIMEN Ordering Facility: [facility] Address: [address] [place] [address] Performed By: #### 2 4331-1, 29959-9, 3040-3, 3016-3 #### [facility] CLIA [id number] [address] [place] [address] [place] Protein [Mass/Vol] 7.2 g/dL Normal 6.3-8.0 [facility] Comment on above: Order Comment: Speci men Type: BLOOD SPECIMEN Ordering Facility: [facility] Address: [address] [place] [address] Performed By: #### 2 4331-1, 26700-1, 3040-3, 3016-3 #### [facility] CLIA [id number] [address] [place] [address] [place] Sodium [Moles/Vol] 142 mmol/L Normal 136-144 [facility] Comment on above: Order Comment: Speci men Type: BLOOD SPECIMEN Ordering Facility: [facility] Address: [address] [place], [place] [address] Performed By: #### 2 4331-1, 18245-0, 3040-3, 3016-3 #### [facility] CLIA [id number] [address] [place] [address] [place] Urea nitrogen [Mass/Vol] 5 mg/dL Low 7-21 [facility] Comment on above: Order Comment: Speci men Type: BLOOD SPECIMEN Ordering Facility: [facility] Address: [address] [place] [address] Performed By: #### 2 4331-1, 52442-5, 3040-3, 3016-3 #### [facility] CLIA [id number] [address] [place] [address] [place] HbA1c (Bld)on 09-11-2024 Average glucose Estimated from glycated hemoglobin (Bld) [Mass/Vol] 111 mg/dL [facility] Comment on above: eAG: (Estimated aver age glucose) is a calculated value from HgbA1c and is charter representative of the average blood glucose level in the last 2-3 month period. HbA1c (Bld) [Mass fraction] 5.5 % 4.3 - 5.6 % [facility] Comment on above: Stateless Diabetes As sociation guidelines indicate that patients with HgbA1c in the range 5.7-6.4% are at increased risk for development of diabetes, and intervention by lifestyle modification may be beneficial. HgbA1c greater or equal to 6.5% is considered diagnostic of diabetes. [facility] Average glucose Estimated from glycated hemoglobin (Bld) [Mass/Vol] 111 mg/dL Normal [facility] Comment on above: Order Comment: Yelena collins Type: BLOOD SPECIMEN Ordering Facility: [facility] Address: [address] [place] [address] Result Comment: eAG: (Estimated average glucose) is a calculated value from HgbA1c and is charter representative of the average blood glucose level in the last 2-3 month period. Performed By: #### 5 5454-3 #### [facility] CLIA [id number] [address] [place] [address] [place] HbA1c (Bld) [Mass fraction] 5.5 % Normal 4.3-5.6 [facility] Comment on above: Order Comment: Yelena collins Type: BLOOD SPECIMEN Ordering Facility: [facility] Address: [address] [place] [address] Result Comment: Amer ican Diabetes Association guidelines indicate that patients with HgbA1c in the range 5.7-6.4% are at increased risk for development of diabetes, and intervention by lifestyle modification may be beneficial. HgbA1c greater or equal to 6.5% is considered diagnostic of diabetes. Performed By: #### 5 5454-3 #### [facility] CLIA [id number] [address] [place], [place] [id number] [place] LIPASEon 09-11-2024 Lipase [Catalytic activity/Vol] 33 U/L 16 - 61 U/L [facility] Lipase SerPl-cCncon 09-11-20 24 Lipase [Catalytic activity/Vol] 33 U/L Normal 16-61 [facility] Comment on above: Order Comment: Speci men Type: BLOOD SPECIMEN Ordering Facility: [facility] Address: [address] [place] [address] Performed By: #### 2 4331-1, 91667-8, 3040-3, 3016-3 #### [facility] CLIA [id number] [address] [place] [address] [place] Lipase [Catalytic activity/V ol]on 09-11-2024 Interpretation and review of laboratory results Normal [facility] Lipid 1996 panelon 4 Cholesterol [Mass/Vol] 208 mg/dL High NINF - 200 mg/dL [facility] Comment on above: <200 mg/dL, Desirabl e 200-239 mg/dL, Borderline high >239 mg/dL, High Cholesterol in HDL [Mass/Vol] 27 mg/dL Low 39 - PINF mg/dL [facility] Comment on above: 40-59 mg/dL, Accepta ble >59 mg/dL, High: Negative risk factor for coronary heart disease <40 mg/dL, Low: Positive risk factor for coronary heart disease Cholesterol in LDL [Mass/Vol] 120 mg/dL High NINF - 100 mg/dL [facility] Comment on above: <100 mg/dL, Optimal 100-129 mg/dL, Near optimal/above optimal 130-159 mg/dL, Borderline high 160-189 mg/dL, High >189 mg/dL, Very high Secondary prevention optimal LDL Cholesterol levels are recommended to be < 70 mg/dL Cholesterol in LDL/Cholesterol in HDL [Mass ratio] 4.44 {ratio} High NINF - 2.54 [facility] Comment on above: Reference: 1. National Cholesterol Education Program ATP III Guideline At-A-Glance Quick Desk Reference: National Heart, Lung, and Blood [place]. National Institutes of Health. 2001: NIH Publication No. 01-3305. 2. An International Atherosclerosis Society position paper: global recommendations for the management of dyslipidemia: executive summary, Atherosclerosis. 2014: 232(2):410-413. Cholesterol in VLDL [Mass/Vol] 61 mg/dL High NINF - 30 mg/dL [facility] Cholesterol non HDL [Mass/Vol] 181 mg/dL High NINF - 130 mg/dL [facility] Comment on above: <130 mg/dL, Optimal 130-159 mg/dL, Near optimal/above optimal 160-189 mg/dL, Borderline high 190-219 mg/dL, High >219 mg/dL, Very high Secondary prevention optimal non HDL Cholesterol levels are recommended to be <100 mg/dL Cholesterol.total/Cho lesterol in HDL [Mass ratio] 7.70 {ratio} High NINF - 5.10 [facility] Fasting Time 12 hrs [facility] Triglyceride [Mass/Vol] 307 mg/dL High NINF - 150 mg/dL [facility] Comment on above: <150 mg/dL, Normal 150-199 mg/dL, Borderline high 200-499 mg/dL, High >499 mg/dL, Very high Cholesterol [Mass/Vol] 208 mg/dL High <200 [facility] Comment on above: Order Comment: Yelena collins Type: BLOOD SPECIMEN Ordering Facility: [facility] Address: [address] [place] [address] Result Comment: <200 mg/dL, Desirable 200-239 mg/dL, Borderline high >239 mg/dL, High Performed By: #### 2 4331-1, 60317-9, 3040-3, 3016-3 #### [facility] CLIA [id number] [address] [place], [place] [address] [id number] [address] [place] Cholesterol in HDL [Mass/Vol] 27 mg/dL Low >39 [facility] Comment on above: Order Comment: Yelena collins Type: BLOOD SPECIMEN Ordering Facility: [facility] Address: [address] [place] [address] Result Comment: 40-5 9 mg/dL, Acceptable >59 mg/dL, High: Negative risk factor for coronary heart disease <40 mg/dL, Low: Positive risk factor for coronary heart disease Performed By: #### 2 4331-1, 25542-1, 0-3, 6-3 #### [facility] CLIA [id number] [address] [place], [place] [address] [place] [address] [place] Cholesterol in LDL [Mass/Vol] 120 mg/dL High <100 [facility] Comment on above: Order Comment: Jarethi men Type: BLOOD SPECIMEN Ordering Facility: [facility] Address: [address] [place] [address] Result Comment: <100 mg/dL, Optimal 100-129 mg/dL, Near optimal/above optimal 130-159 mg/dL, Borderline high 160-189 mg/dL, High >189 mg/dL, Very high Secondary prevention optimal LDL Cholesterol levels are recommended to be < 70 mg/dL Performed By: #### 2 4331-1, 10916-4, 3039-3, 3015-3 #### [facility] CLIA [id number] [address] [place] [address] [place] Cholesterol in LDL/Cholesterol in HDL [Mass ratio] 4.44 {ratio} High <2.54 [facility] Comment on above: Order Comment: Yelena dennis Type: BLOOD SPECIMEN Ordering Facility: [facility] Address: [address] [place] [address] Result Comment: Refe rence: 1. National Cholesterol Education Program ATP III Guideline At-A-Glance Quick Desk Reference: National Heart, Lung, and Blood [place]. National Institutes of Health. 2001: NIH Publication No. 01-3305. 2. An International Atherosclerosis Society position paper: global recommendations for the management of dyslipidemia: executive summary, Atherosclerosis. 2014: 232(2):410-413. Performed By: #### 2 4331-1, 99965-2, 0-3, 6-3 #### [facility] CLIA [id number] [facility] [place] [id number] [place] Cholesterol in VLDL [Mass/Vol] 61 mg/dL High <30 [facility] Comment on above: Order Comment: Speci men Type: BLOOD SPECIMEN Ordering Facility: [facility] Address: [address] [place] [address] Performed By: #### 2 4331-1, 54160-0, 0-3, 6-3 #### [facility] CLIA [id number] [address] [place] [address] [place] Cholesterol non HDL [Mass/Vol] 181 mg/dL High <130 [facility] Comment on above: Order Comment: Speci men Type: BLOOD SPECIMEN Ordering Facility: [facility] Address: [address] [place] [address] Result Comment: <130 mg/dL, Optimal 130-159 mg/dL, Near optimal/above optimal 160-189 mg/dL, Borderline high 190-219 mg/dL, High >219 mg/dL, Very high Secondary prevention optimal non HDL Cholesterol levels are recommended to be <100 mg/dL Performed By: #### 2 4331-1, 65439-8, 3039-3, 3015-3 #### [facility] CLIA [id number] [address] [place] [address] [place] Cholesterol.total/Cho lesterol in HDL [Mass ratio] 7.70 {ratio} High <5.10 [facility] Comment on above: Order Comment: Speci men Type: BLOOD SPECIMEN Ordering Facility: [facility] Address: [address] [place] [address] Performed By: #### 2 4331-1, 18785-5, 0-3, 3015-3 #### [facility] CLIA [id number] [address] [place], [place] [id number] [place] FASTING TIME 12 hrs Normal [facility] Comment on above: Order Comment: Speci men Type: BLOOD SPECIMEN Ordering Facility: [facility] Address: [address] [place] [address] Performed By: #### 2 4331-1, 76239-4, 0-3, 3015-3 #### [facility] CLIA [id number] [address] [place] [address] [place] Triglyceride [Mass/Vol] 307 mg/dL High <150 [facility] Comment on above: Order Comment: Speci men Type: BLOOD SPECIMEN Ordering Facility: [facility] Address: [address] [place] [address] Result Comment: <150 mg/dL, Normal 150-199 mg/dL, Borderline high 200-499 mg/dL, High >499 mg/dL, Very high Performed By: #### 2 4331-1, 99448-4, 3040-3, 3016-3 #### [facility] CLIA [id number] [address] [place] [address] [place] No Panel Informationon 09-11 Interpretation and review of laboratory results Abnormal [facility] THYROID STIMULATING HORMONEo n 09-11-2024 TSH Qn 0.917 m[IU]/L [facility] Comment on above: If the patient [...] Molina, et al. 2017 Guidelines of the Stateless Thyroid Association for the Diagnosis and Management of Thyroid Disease during and the . Thyroid, 2017:27:3:315-389. TSH Qnon 09-11-2024 Interpretation and review of laboratory results Normal [facility] TSH SerPl-aCncon 09-11-2024 TSH Qn 0.917 m[IU]/L Normal 0.270-4.20 0 [facility] Comment on above: Order Comment: Speci men Type: BLOOD SPECIMEN Ordering Facility: [facility] Address: [address] [place] [address] Result Comment: If t he patient is [...] Molina, et al. 2017 Guidelines of the Stateless Thyroid Association for the Diagnosis and Management of Thyroid Disease during and the . Thyroid, 2017:27:3:315-389. Performed By: #### 2 4331-1, 39516-8, 3040-3, 3016-3 #### [facility] CLIA [id number] [address] [place] [address] [facility] CNOVon 09-03-2024 CNOV Office Visit (TJ LOYOLA) JOSHUA CHOUDHARY ([id number]) 1995 F Date Time Provider Department 09/03/24 1:20 PM LESA SOLER During your visit today, we recorded the following information about you: Temperature Pulse Blood pressure Weight 98.1 degrees 78/minute 108/62 92.1 kg Height 1.676 m Lesa Soler, 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 09/22/2024 12:58 AM Signed Subjective Joshuatd Choudhary is a 29 year old female here today for establish care. I reviewed past medical, surgical, social, and family histories today and updated chart. Allergies, chronic medications, and supplements were also reviewed. HPI Moved back to [place] about 1 year ago Needs PCP Diagnosed [...] Insatiable hunger for sugar, craves candy Saw [facility] last week - Dr Monique Pap test completed Looking in to fertility treatment for 6 years - tried for good 2 years, still not using BC Right fallopian tube removed age 17 Depression - she is seeing counselor and psychiatrist, Dr Marybel Ortiz [address] Counselor Joshua Zazueta at [facility], will be starting EDMR Hx childhood trauma CPSD responses Having official testing for ADHD Panic disorder Has been focusing on mental health this whole past year Hasn't been able to work this past year She was hospitalized - [facility] x 1 week Just started new medication [...] Skin: Negative (more content not included)... Normal [facility] CNOVon 08-28-2024 CNOV Office Visit (OBGYST ) JOSHUA CHOUDHARY ([id number]) 1995 F Date Time Provider Department 08/28/24 9:40 AM HUDOCK, MARIO OBGYST During your visit today, we recorded the [...] skin retraction. Allergies and current medication updated:Yes Public Health Service Officer present EXAM: BP 108/71 Pulse 72 Ht 5' 6 (1.68m) Wt 208 lb (94.3kg) LMP 06/28/2024 BMI 33.59 kg/(m2). GENERAL: In no apparent distress HEENT: Normocephalic, BREAST: soft, non-tender, symmetric, no dominant mass, normal nipple-areolar complex, no lymphadenopathy, and no nipple discharge CHEST: Normal inspiratory effort ABDOMEN: soft, non-tender, and no masses PELVIC: external genitalia normal, normal Bartholin's glands, urethra, Pepeekeo's glands, no vulvar lesions, no cervical lesions, [...] discussed with the Patient or Patient's Authorized Job Honer. As applicable, any other physician, advance practice provider, medical student, or other health professional student that will be observing or involved in the sensitive examination for educational or training purposes was discussed with the Patient or Authorized Job Honer. The Patient or Authorized Job Honer has agreed to proceed with the sensitive [...] [E28.2] Primary female infertility [N97.9] Order(s):PAP TEST [WEV3279] Order #: [id number]. #:[id number] CONSULT TO INFERTILITY CLINIC [2476505] Order #: [id number]: 1 FUTURE Prescriptions as of 08/28/2024 - [...] for Encounter Date Provider Department Center 08/28/2024 [id number] MONIQUE [facility] Shaggy Apple (more content not included)... Normal [facility] HIGH RISK HUMAN PAPILLOMA WEN (HPV), PCR FOR DETECTION AND GENOTYPINGon 08-28-2024 HPV 16 Ag Ql (Unsp spec) Not detected Normal Not detected [facility] Comment on above: Order Comment: Speci men Type: BLOOD SPECIMEN Ordering Facility: [facility] Address: [address] [place] [address] Performed By: #### 5 8410-2 #### [facility] CLIA [id number] [address] [place] [address] [place] HPV 18 Ag Ql (Unsp spec) Not detected Normal Not detected [facility] Comment on above: Order Comment: Speci men Type: BLOOD SPECIMEN Ordering Facility: [facility] Address: [address] [place] [address] Performed By: #### 5 8410-2 #### [facility] CLIA [id number] [address] [place] [address] [place] HPV 31+33+35+39+45+51+52+ 56+58+59+66+68 DNA MURALI+probe Ql (Cvx) Not detected Normal Not detected [facility] Comment on above: Order Comment: Speci men Type: BLOOD SPECIMEN Ordering Facility: [facility] Address: [address] [place] [address] Result Comment: High Risk HPV Other Type includes HPV types 31, 33, 35, 39, 45, 51, 52, 56, 58, 59, 66 and 68. Performed By: #### 5 8410-2 #### [facility] CLIA [id number] [address] [place], [place] [id number] [place] PAP TESTon 08-28-2024 ADEQUACY Satisfactory for interpretation. Normal [facility] Comment on above: Order Comment: Speci men Type: FLUID SPECIMEN Ordering Facility: [facility] Address: [address] [place] [address] Performed By: #### L [id number] #### [facility] CLIA [id number] [address] [place] [address] [place] [facility] CLIA [id number] [address] [place] [address] [place] CASE REPORT Normal [facility] Comment on above: Order Comment: Speci men Type: FLUID SPECIMEN Ordering Facility: [facility] Address: [address] [place] [address] Result Comment: Gyne cologic Cytology Report Case: [id number] Authorizing Provider: Mario Monique MD Collected: 08/28/2024 10:22 AM Ordering Location: OB/Gynecology Received: 08/28/2024 12:10 PM First Screen: Keisha, Keely, CT, ASCP Specimen: Pap Test, ThinPrep, Cervix Performed By: #### L [id number] #### [facility] CLIA [id number] [address] [place] [address] [place] [facility] CLIA [id number] [address] [place] [address] [place] CLINICAL HISTORY, CYTOLOGY, SYSTEMS SPEC Routine Exam Normal [facility] Comment on above: Order Comment: Speci men Type: FLUID SPECIMEN Ordering Facility: [facility] Address: [address] [place] [address] Performed By: #### L [id number] #### [facility] CLIA [id number] [address] [place] [address] [place] [facility] CLIA [id number] [address] [place] [address] [place] FIN[facility]FORMING LAB Normal [facility] Comment on above: Order Comment: Speci men Type: FLUID SPECIMEN Ordering Facility: [facility] Address: [address] [place] [address] Result Comment: Tech nical component, winch derrick operator screening performed at [facility], [address] [place] [address] CLIA# [id number] Diagnostic interpretation performed at [facility], [address] [place] [address] CLIA# [id number] Tele Grout Sewer Line Repairer: Wu Scott M.D. Performed By: #### L [id number] #### [facility] CLIA [id number] [address] [place] [address] [place] [facility] CLIA [id number] [address] [place] [address] [place] INTERPRETATION, CYTOLOGY, SYSTEMS SPEC Normal [facility] Comment on above: Order Comment: Speci men Type: FLUID SPECIMEN Ordering Facility: [facility] Address: [address] [place] [address] Result Comment: Nega tive for intraepithelial lesion or malignancy. Performed By: #### L [id number] #### [facility] CLIA [id number] [address] [place] [address] [place] [facility] CLIA [id number] [address] [place] [address] [place] LMP 06/28/2024 Normal [facility] Comment on above: Order Comment: Speci men Type: FLUID SPECIMEN Ordering Facility: [facility] Address: [address] [place] [address] Performed By: #### L [id number] #### [facility] CLIA [id number] [address] [place], [place] [address] [place] [facility] CLIA [id number] [address] [place], [place] [address] [place] PAP DISCLAIMER COMMENT The Pap Smear is a screening test for cervical cancer. False negative results occur with all screening tests, emphasizing the need for rescreening at recommended intervals, and clinical correlation. Normal [facility] Comment on above: Order Comment: Speci men Type: FLUID SPECIMEN Ordering Facility: [facility] Address: [address] [place] [address] Performed By: #### L [id number] #### [facility] CLIA [id number] [address] [place] [address] LAB CLIA [id number] [address] [place] [address] OF [facility] PAP WASTE SPECIALIST COMMENT This specimen has be en analyzed by the ThinPrep Imaging System, an automated imaging and review system, which assists the laboratory in evaluating cells on ThinPrep Pap tests. Following automated imaging, selected zelaya from every slide are reviewed by a winch derrick operator. Normal [facility] Comment on above: Order Comment: Speci men Type: FLUID SPECIMEN Ordering Facility: [facility] Address: [address] [place] [address] Performed By: #### L [id number] #### [facility] CLIA [id number] [address] [place] [address] LAB CLIA [id number] [address] [place] [address] [place] Abdomen/Pelvis W IV Cont ONL Yon 07-15-2024 Abdomen/Pelvis W IV Cont ONLY [facility] [address] [place] [id number] Abdomen/Pelvis W IV Cont ONLY MR#: [id number] Acct: [id number] Name: JOSHUA CHOUDHARY Rep #: [id number] : 1995 F 29 From: Braden Golden MD PCP: Care Physician,No Primary Status: REG ER Study: Abdomen/Pelvis W IV Cont ONLY Date of Exam: Exam# [id number] Ordering Dr: Oliver Marley DO :[id number] STUDY: CT ABDOMEN AND PELVIS WITH CONTRAST [...] Signed: Braden Golden MD at 18:39 EDT Reading Location ID and State: [place] / [place] Tel , Service support , CC: Dr. Oliver Marley, DO; No Primary Care Physician Referral Nurse: Signed Normal [facility] CBC W/Diff, Automatedon - Absolute Lymph 4.18 X10 3/uL Normal 0.83-4.51 [facility] Comment on above: Performed By: #### L 100.0100, L503.6005, L700.6800, L501.2450, L500.4050 ####[facility] [address] [place], [address] Absolute Neut 17.5 X10 3/uL High 2.0-7.7 [facility] Comment on above: Performed By: #### L 100.0100, L503.6005, L700.6800, L501.2450, L500.4050 ####[facility] [address] [place], [address] Basophils/100 WBC (Bld) 0.4 % Normal 0-1 [facility] Comment on above: Performed By: #### L 100.0100, L503.6005, L700.6800, L501.2450, L500.4050 ####[facility] [address] [place], [address] Eosinophils/100 WBC (Bld) 0.2 % Normal 0-5 [facility] Comment on above: Performed By: #### L 100.0100, L503.6005, L700.6800, L501.2450, L500.4050 ####[facility] [address] [place], [address] Erythrocyte distribution width (RBC) [Ratio] 13.2 % Normal 11.6-14.6 [facility] Comment on above: Performed By: #### L 100.0100, L503.6005, L700.6800, L501.2450, L500.4050 ####[facility] [address] [place], [address] Hematocrit (Bld) [Volume fraction] 44.1 % Normal 37-47 [facility] Comment on above: Performed By: #### L 100.0100, L503.6005, L700.6800, L501.2450, L500.4050 ####[facility] [address] [place], [address] Hemoglobin (Bld) [Mass/Vol] 15.4 g/dL High 12.0-15.0 [facility] Comment on above: Performed By: #### L 100.0100, L503.6005, L700.6800, L501.2450, L500.4050 ####[facility] [address] [place], [address] IG% 0.700 Normal 0.0-0.9 [facility] Comment on above: Result Comment: IG% - Immature Granulocytes (promyelocytes, myelocytes and metamyelocytes) > 1% indicates that a LEFT SHIFT is Present. Performed By: #### L 100.0100, L503.6005, L700.6800, L501.2450, L500.4050 ####[facility] [address] [place], [address] Lymphocytes/100 WBC (Bld) 17.8 % Low 19-41 [facility] Comment on above: Performed By: #### L 100.0100, L503.6005, L700.6800, L501.2450, L500.4050 ####[facility] [address] [place], [address] MCH (RBC) [Entitic mass] 29.7 pg Normal 27.0-32.0 [facility] Comment on above: Performed By: #### L 100.0100, L503.6005, L700.6800, L501.2450, L500.4050 ####[facility] [address] [place], [address] MCHC (RBC) [Mass/Vol] 34.9 g/dL Normal 32-36 [facility] Comment on above: Performed By: #### L 100.0100, L503.6005, L700.6800, L501.2450, L500.4050 ####[facility] [address] [place], [address] MCV (RBC) [Entitic vol] 85.0 fL Normal 81-99 [facility] Comment on above: Performed By: #### L 100.0100, L503.6005, L700.6800, L501.2450, L500.4050 ####[facility] [address] [place], [address] Monocytes/100 WBC (Bld) 6.3 % Normal 0-10 [facility] Comment on above: Performed By: #### L 100.0100, L503.6005, L700.6800, L501.2450, L500.4050 ####[facility] [address] [place], [address] Neutrophils/100 WBC (Bld) 74.6 % High 47-70 [facility] Comment on above: Performed By: #### L 100.0100, L503.6005, L700.6800, L501.2450, L500.4050 ####[facility] [address] [place], [address] Nucleated RBC (Bld) [#/Vol] 0 10*3/uL Normal 0-5 [facility] Comment on above: Performed By: #### L 100.0100, L503.6005, L700.6800, L501.2450, L500.4050 ####[facility] [address] [place], [address] Platelet mean volume (Bld) [Entitic vol] 11.9 fL Normal 6.2-12.0 [facility] Comment on above: Performed By: #### L 100.0100, L503.6005, L700.6800, L501.2450, L500.4050 ####[facility] [address] [place], [address] Platelets (Bld) [#/Vol] 279 10*3/uL Normal 150-450 [facility] Comment on above: Performed By: #### L 100.0100, L503.6005, L700.6800, L501.2450, L500.4050 ####[facility] [address] [place], [address] RBC (Bld) [#/Vol] 5.19 10*6/uL Normal 4.2-5.4 [facility] Comment on above: Performed By: #### L 100.0100, L503.6005, L700.6800, L501.2450, L500.4050 ####[facility] [address] [place], [address] RDW SD 40.6 fl Normal 35.1-43.9 [facility] Comment on above: Performed By: #### L 100.0100, L503.6005, L700.6800, L501.2450, L500.4050 ####[facility] [address] [place], [address] WBC (Bld) [#/Vol] 23.5 10*3/uL High 4.4-11.0 [facility] Comment on above: Performed By: #### L 100.0100, L503.6005, L700.6800, L501.2450, L500.4050 ####[facility] [address] [place], [address] Comprehensive Metabolic Prof [facility] 07-15-2024 Albumin [Mass/Vol] 4.4 g/dL Normal 3.2-5.0 [facility] Comment on above: Performed By: #### L 100.0100, L503.6005, L700.6800, L501.2450, L500.4050 ####[facility] [address] [place], [address] Albumin/Globulin [Mass ratio] 1.2 {ratio} Normal 0.9-2.4 [facility] Comment on above: Performed By: #### L 100.0100, L503.6005, L700.6800, L501.2450, L500.4050 ####[facility] [address] [place], [address] ALK P 56 U/L Normal 45-117 [facility] Comment on above: Performed By: #### L 100.0100, L503.6005, L700.6800, L501.2450, L500.4050 ####[facility] [address] [place], [address] ALT [Catalytic activity/Vol] 47 U/L Normal 13-56 [facility] Comment on above: Performed By: #### L 100.0100, L503.6005, L700.6800, L501.2450, L500.4050 ####[facility] [address] [place], [address] AST [Catalytic activity/Vol] 31 U/L Normal 15-37 [facility] Comment on above: Performed By: #### L 100.0100, L503.6005, L700.6800, L501.2450, L500.4050 ####[facility] [address] [place], [address] Bilirubin [Mass/Vol] 2.20 mg/dL High 0.20-1.00 [facility] Comment on above: Result Comment: For patients on eltrombopag therapy, use of Dimension Dyer TBIL is not recommended. Performed By: #### L 100.0100, L503.6005, L700.6800, L501.2450, L500.4050 ####[facility] [address] [place], [address] BUN/CRE 19.3 RATIO Normal 10-20 [facility] Comment on above: Performed By: #### L 100.0100, L503.6005, L700.6800, L501.2450, L500.4050 ####[facility] [address] [place], [address] CA,Total 10.9 mg/dL High 8.5-10.1 [facility] Comment on above: Performed By: #### L 100.0100, L503.6005, L700.6800, L501.2450, L500.4050 ####[facility] [address] [place], [address] Chloride [Moles/Vol] 101 mmol/L Normal 98-107 [facility] Comment on above: Performed By: #### L 100.0100, L503.6005, L700.6800, L501.2450, L500.4050 ####[facility] [address] [place], [address] CO2 [Moles/Vol] 29.0 mmol/L Normal 21.0-32.0 [facility] Comment on above: Performed By: #### L 100.0100, L503.6005, L700.6800, L501.2450, L500.4050 ####[facility] [address] [place], [address] Creatinine [Mass/Vol] 0.99 mg/dL Normal 0.55-1.02 [facility] Comment on above: Result Comment: The validity of the calculated GFR GFRAA in patients over 70 years has not been determined. Clinical correlation is essential. Performed By: #### L 100.0100, L503.6005, L700.6800, L501.2450, L500.4050 ####[facility] [address] [place], [address] ECRCL 94.64 ml/min Normal [facility] Comment on above: Performed By: #### L 100.0100, L503.6005, L700.6800, L501.2450, L500.4050 ####[facility] [address] [place], [address] EST GFR - AA 84 mL/min Normal >60 [facility] Comment on above: Result Comment: Afri can Stateless GFR Calc Performed By: #### L 100.0100, L503.6005, L700.6800, L501.2450, L500.4050 ####[facility] [address] [place], [address] GAP 6 Normal 5-15 [facility] Comment on above: Performed By: #### L 100.0100, L503.6005, L700.6800, L501.2450, L500.4050 ####[facility] [address] [place], [address] GFR/1.73 sq M.predicted among non-blacks MDRD (S/P/Bld) [Vol rate/Area] 70 mL/min/{1.73_m2} Normal >60 [facility] Comment on above: Result Comment: Non- GFR Calc Performed By: #### L 100.0100, L503.6005, L700.6800, L501.2450, L500.4050 ####[facility] [address] [place], [address] Globulin (S) [Mass/Vol] 3.8 g/dL Normal 2.2-4.2 [facility] Comment on above: Performed By: #### L 100.0100, L503.6005, L700.6800, L501.2450, L500.4050 ####[facility] [address] [place], [address] Glucose [Mass/Vol] 119 mg/dL High 74-106 [facility] Comment on above: Result Comment: Fast ing Glucose result from 100 to 125 mg/dL suggests IMPAIRED HOMEOSTASIS per A.D.A. criteria. Performed By: #### L 100.0100, L503.6005, L700.6800, L501.2450, L500.4050 ####[facility] [address] [place], [address] Potassium [Moles/Vol] 3.0 mmol/L Low 3.5-5.1 [facility] Comment on above: Performed By: #### L 100.0100, L503.6005, L700.6800, L501.2450, L500.4050 ####[facility] [address] [place], [address] Sodium [Moles/Vol] 136 mmol/L Normal 136-145 [facility] Comment on above: Performed By: #### L 100.0100, L503.6005, L700.6800, L501.2450, L500.4050 ####[facility] [address] [place], [address] T PROT 8.2 g/dL Normal 6.4-8.2 [facility] Comment on above: Performed By: #### L 100.0100, L503.6005, L700.6800, L501.2450, L500.4050 ####[facility] [address] [place], [address] Urea nitrogen [Mass/Vol] 19 mg/dL High 7-18 [facility] Comment on above: Performed By: #### L 100.0100, L503.6005, L700.6800, L501.2450, L500.4050 ####[facility] [address] [place], [address] Emergency Department Summary on 07-15-2024 Emergency Department Summary [facility] Medical Records Department [address] [place] [address] Emergency Department Summary 07/15/24 MR#: [id number] Acct: [id number] Name: JOSHUA CHOUDHARY Rep #: [id number] : 1995 29 From: Oliver Marley DO PCP: Care Physician,No Primary Status:DEP ER Location: ED HPI History of Present Illness Chief Complaint: Nausea/Vomiting Detail of Chief Complaint: Nausea and vomiting Informant: patient Narrative Narrative: Patient presents to the emergency department with complaint of nausea and vomiting. Patient states that she traveled to [facility] 3 days ago and drank heavily that [...] that she is a daily marijuana smoker. [facility] Medical History PCOS (polycystic [...] 0 current occupational status: employed current occupation: [employer] Smoking Status: Never smoker Smokeless tobacco user: [...] well d (more content not included)... Normal [facility] Lactic Acidon 07-15-2024 Lactate [Moles/Vol] 1.2 mmol/L Normal 0.4-1.9 [facility] Comment on above: Order Comment: Y Performed By: #### L 100.0100, L503.6005, L700.6800, L501.2450, L500.4050 ####[facility] [address] [place], [address] Lipaseon 07-15-2024 Lipase [Catalytic activity/Vol] 43 U/L Normal 13-75 [facility] Comment on above: Result Comment: Jose porter note: LIPASE revised reference range effective 23. New Lipase methodology. Expected to produce lower values than the previous assay method. NEW Reference Range: 13 - 75 U/L Performed By: #### L 100.0100, L503.6005, L700.6800, L501.2450, L500.4050 ####[facility] [address] [place], [address] ,Serum,hCG Quali.on 07-15-2024 HCG, SERUM QUAL Negative Normal [facility] Comment on above: Performed By: #### L 100.0100, L503.6005, L700.6800, L501.2450, L500.4050 ####[facility] [address] [place], [address] Urinalysis, Completeon 07-15 AMORPHOUS 1+ URATE Normal [facility] Comment on above: Order Comment: COLLE CTOR TO SPECIFY Performed By: #### L 400.0001 ####[facility] [address] [place], [address] EPI,SQUAMOUS 0-5 SEEN Normal 5-10 [facility] Comment on above: Order Comment: COLLE CTOR TO SPECIFY Performed By: #### L 400.0001 ####[facility] [address] [place], [address] RBC 5-10 SEEN Normal 0-5 [facility] Comment on above: Order Comment: XI CTOR TO SPECIFY Performed By: #### L 400.0001 ####[facility] [address] [place], [address] WBC 0-5 SEEN Normal 0-5 [facility] Comment on above: Order Comment: XI CTOR TO SPECIFY Performed By: #### L 400.0001 ####[facility] [address] [place], [address] BACTERIA 0 SEEN Normal None Seen [facility] Comment on above: Order Comment: XI CTOR TO SPECIFY Performed By: #### L 400.0001 ####[facility] [address] [place], [address] Mucus Ql (Urine sed) 0 SEEN Normal [facility] Comment on above: Order Comment: XI CTOR TO SPECIFY Performed By: #### L 400.0001 ####[facility] [address] [place], [address] Glucose Glucometer (dC) [M ass/Vol]Ordered By: Ry James on 03-30-2023 Glucose [Mass/Vol] 121 mg/dL 74-106 [facility] Comment on above: MANAGEMENT OF PATIEN T CARE PER NURSING PROTOCOL Absolute lymphocyte countOrd ered By: Andres Loyola on 03-29-2023 Lymphocytes Auto (Unsp spec) [#/Vol] 4.08 10*3/uL 0.83-4.51 [facility] Amorphous sediment detection in urine sediment by light microscopyOrdered By: Andres Loyola on 03-29-2023 Amorphous sediment LM Ql (Urine sed) 3+ [facility] Basophil percentageOrdered B y: Andres Loyola on 03-29-2023 Basophil percentage 0 SEEN /hpf 0-5 [facility] Basophils/100 WBC (Bld) 0.4 % 0-1 [facility] Eosinophils/100 WBC (Bld) 0.4 % 0-5 [facility] Neutrophils (Bld) [#/Vol] 11.2 10*3/uL 2.0-7.7 [facility] Neutrophils/100 WBC (Bld) 67.3 % 47-70 [facility] WBC (Bld) [#/Vol] 16.6 10*3/uL 4.4-11.0 [facility] Bilirubin Test strip Ql (U)O rdered By: Andres Loyola on 03-29-2023 Bilirubin Ql (U) Negative Negative [facility] Blood erythrocytes count (nu mber/volume)Ordered By: Andres Loyola on 03-29-2023 RBC (Bld) [#/Vol] 4.76 10*6/uL 4.2-5.4 [facility] Blood hemoglobin measurement (mass/volume)Ordered By: Andres Loyola on 03-29-2023 Hemoglobin (Bld) [Mass/Vol] 13.7 g/dL 12.0-15.0 [facility] Blood lymphocytes/100 leukoc ytesOrdered By: Andres Loyola on 03-29-2023 Lymphocytes/100 WBC (Bld) 24.7 % 19-41 [facility] Blood monocytes/100 leukocyt esOrdered By: Andres Loyola on 03-29-2023 Monocytes/100 WBC (Bld) 6.5 % 0-10 [facility] Blood platelet mean volumeOr dered By: Andres Loyola on 03-29-2023 Platelet mean volume (Bld) [Entitic vol] 11.4 fL 6.2-12.0 [facility] Determination of erythrocyte mean corpuscular volume (MCV)Ordered By: Andres Loyola on 03-29-2023 MCV (RBC) [Entitic vol] 83.8 fL 81-99 [facility] Hematocrit Auto (Bld) [Volum e fraction]Ordered By: Andres Loyola on 03-29-2023 Hematocrit (Bld) [Volume fraction] 39.9 % 37-47 [facility] Ketones Test strip Ql (U)Ord ered By: Andres Loyola on 03-29-2023 Ketones Ql (U) 15 mg/dl Negative [facility] Laboratory - Hematology and Cell countsOrdered By: Andres Loyola on 03-29-2023 Erythrocyte distribution width (RBC) [Entitic vol] 41.5 fL 35.1-43.9 [facility] Erythrocyte distribution width (RBC) [Ratio] 13.7 % 11.6-14.6 [facility] Immature granulocytes/100 WBC (Bld) 0.700 % 0.0-0.9 [facility] Comment on above: IG% - Immature Granu locytes (promyelocytes, myelocytes and metamyelocytes) > 1% indicates that a LEFT SHIFT is Present. MCH (RBC) [Entitic mass] 28.8 pg 27.0-32.0 [facility] Nucleated RBC/100 WBC (Bld) [Ratio] 0 % 0-5 [facility] MCHC Auto (RBC) [Mass/Vol]Or dered By: Andres Loyola on 03-29-2023 MCHC (RBC) [Mass/Vol] 34.3 g/dL 32-36 [facility] Mucus LM Ql (Urine sed)Order ed By: Andres Loyola on 03-29-2023 Mucus Ql (Urine sed) 0 SEEN /hpf [facility] Nitrite Test strip Ql (U)Ord ered By: Andres Loyola on 03-29-2023 Nitrite Ql (U) Negative Negative [facility] Platelets bldOrdered By: Rufino Loyola on 03-29-2023 Platelets (Bld) [#/Vol] 308 10*3/uL 150-450 [facility] Protein Test strip Ql (U)Ord ered By: Andres Loyola on 03-29-2023 Protein Ql (U) 30 mg/dl Negative [facility] Squamous epithelial cells de tection in urine sediment by light microscopyOrdered By: Andres Loyola on 03-29-2023 Epithelial cells.squamous LM Ql (Urine sed) 0 SEEN /hpf 5-10 [facility] Urine blood detectionOrdered By: Andres Loyola on 03-29-2023 RBC Ql (U) 25 /ul Negative [facility] RBC Ql (U) 0 SEEN /hpf 0-5 [facility] Urine clarityOrdered By: Rufino Loyola on 03-29-2023 Clarity (U) Sl. Cloudy Clear [facility] Urine color determinationOrd ered By: Andres Loyola on 03-29-2023 Color (U) Yellow Yellow [facility] Urine glucose detectionOrder ed By: Andres Loyola on 03-29-2023 Glucose Ql (U) Normal mg/dl Normal [facility] Urine leukocyte esterase det ection by dipstickOrdered By: Andres Loyola on 03-29-2023 Leukocyte esterase Test strip Ql (U) 25 /ul Negative [facility] Urine pHOrdered By: Andres Loyola on 03-29-2023 pH (U) 5.0 [pH] 5.0 - 8.0 [facility] Urine sediment bacteria coun t by microscopy (number/high power field)Ordered By: Andres Loyola on 03-29-2023 Bacteria LM.HPF (Urine sed) [#/Area] 0 /[HPF] None Seen [facility] Urine specific gravity measu rementOrdered By: Andres Loyola on 03-29-2023 Specific gravity (U) [Rel density] 1.025 1.002-1.03 0 [facility] Urobilinogen Auto test strip Ql (U)Ordered By: Andres Loyola on 03-29-2023 Urobilinogen Ql (U) 1 mg/dl Normal [facility] Basophil percentageOrdered B y: Ry James on 03-28-2023 Chloride [Moles/Vol] 106 mmol/L 98-107 [facility] Glucose [Mass/Vol] 160 mg/dL 74-106 [facility] Comment on above: Fasting Glucose resu lt greater than or equal to 126 mg/dL suggests DIABETES MELLITUS per A.D.A. criteria. Potassium [Moles/Vol] 3.4 mmol/L 3.5-5.1 [facility] Sodium [Moles/Vol] 138 mmol/L 136-145 [facility] Beta hCG serum qualOrdered B y: Ry James on 03-28-2023 Beta HCG ( test) Ql Negative [facility] Influenza virus A and B and SARS-CoV-2 (COVID-19) Ag panel - Upper respiratory specimOrdered By: Ry James on 03-28-2023 SARS-CoV-2 (COVID-19) RNA MURALI+probe Ql (Resp) [facility] Laboratory - Chemistry and C hemistry - challengeOrdered By: Ry James on 03-28-2023 CO2 [Moles/Vol] 20.0 mmol/L 21.0-32.0 [facility] Urea nitrogen/Creatinine [Mass ratio] 10.2 mg/mg 10-20 [facility] Laboratory - Drug toxicology Ordered By: Ry James on 03-28-2023 Amphetamines Ql (U) Negative <1000 ng/mL [facility] Benzodiazepines Ql (U) Negative < 200 ng/mL [facility] Cannabinoids Screen Ql (U) Positive < 50 ng/mL [facility] Cocaine Ql (U) Negative < 300 ng/mL [facility] Opiates Ql (U) Positive < 300 ng/mL [facility] No Panel InformationOrdered By: Ry James on 03-28-2023 MDMA (Ecstasy) Screen Negative < 500 ng/mL [facility] Urine Barbiturates Screen Negative < 200 ng/mL [facility] Urine Drug Screen Comment [facility] Comment on above: CONFIRMATORY TESTING FOR [...] Urine Methadone Screen Negative < 300 ng/mL [facility] Estimated Creatinine Clearance Calc 71.30 ml/min [facility] Estimated GFR (MDRD) Amer 77 mL/min >60 [facility] Comment on above: GFR Calc Estimated GFR (MDRD) Non-Af Amer 63 mL/min >60 [facility] Comment on above: Non- GFR Calc Ethyl Alcohol Level < 3.0 mg/dL [facility] Comment on above: The serum:whole bloo d ethanol ratio is approximately 1.14and varies slightly with hematocrit. Medical Alcohol reference interval and critical value innon-tolerant individuals; 50 - 100 Impairment 100 Intoxication 100 - 250 Severe Poisoning 250 - 400 Deep/possible fatal coma Serum or plasma calcium prakash urement (mass/volume)Ordered By: yR James on 03-28-2023 Calcium [Mass/Vol] 11.1 mg/dL 8.5-10.1 [facility] Serum or plasma creatinine m easurement (mass/volume)Ordered By: Ry James on 03-28-2023 Creatinine [Mass/Vol] 1.08 mg/dL 0.55-1.02 [facility] Comment on above: The validity of the calculated GFR & GFRAA in patients over 70 years has not been determined. Clinical correlation is essential. Serum or plasma urea nitroge n measurement (mass/volume)Ordered By: Ry James on 03-28-2023 Urea nitrogen [Mass/Vol] 11 mg/dL 7-18 [facility] Thin prep Papanicolaou smear with manual screeningOrdered By: Ry James on 03-28-2023 Thin prep Papanicolaou smear with manual screening 12 5-15 [facility] Urine phencyclidine (PCP) de tectionOrdered By: Ry aJmes on 03-28-2023 Phencyclidine Ql (U) Negative < 25 ng/mL [facility] ANES Shey 10-04-2017 ANES POST HNO ID: [id number] thor: Miguel Andradeervice: AnesthesiologyAuthor Type: AnesthesiologistType: Anesthesia PostOpFiled: 10/04/2017 4:42 PMNote Text:POST ANESTHESIA EVALUATION NOTESERVICE DATE: 10/04/2017SERVICE TIME: 4.30DOB: 1995Vitals: 10/04/1813Temp: 36.6 ?C (97.9 ?F) 36.6 ?C (97.9 ?F) 10/04/18145BP: 126/66 120/64 118/58 119/64 10/04/1814Pulse: 71 76 [...] : 4:42 PM PAGER/CONTACT #: anesthesia [facility] ANES PREOPon 10-04-2017 ANES PREOP HNO ID: [id number] thor: Miguel Andradeervice: AnesthesiologyAuthor Type: AnesthesiologistType: Anesthesia PreOpFiled: 10/04/2017 12:21 PMNote Text: ANESTHESIOLOGY DAY OF SURGERY NOTESERVICE DATE: 10/04/2017SERVICE TIME:09.21DOB: 1995Procedure(s) (LRB):LAPAROSCOPIC CHOLECYSTECTOMY (N/A)Surgeon(s):Basim KayetmanEstimated body mass index is 34.06 kg/(m2) as calculated from thefollowing: Height as of this encounter: 167.6 cm (5' 6). Weight as of this encounter: 95.7 kg (211 lb).Most recent hematocrit and potassium results:No results found for this basename: HCT,HEMATOCRIT,K,POTASSIUMAN ES DOS/PREOP NOTE:Vitals: 9BP: 116/70Pulse: 79Resp: 16Temp: 36.6 ?C (97.9 ?F)TempSrc: [...] ringers infusion 30 mL/hr INTRAVENOUS CONTINUOUS Basim Hanson Last Rate: 30 mL/hr at 10/04/17 1023 [...] E: Miguel Dash MD PATIENT NAME: Joshua TrottersDATE: October 04, 2017 : 12:21 PM CSN: [id number] [facility] BRIEF OP NOTon 10-04-2017 BRIEF OP NOT HNO ID: [id number] thor: Basim Vargheseice: General SurgeryAuthor Type: PhysicianType: Brief Op NoteFiled: 10/04/2017 2:09 PMNote Text:BRIEF OPERATIVE NOTATION FOR SURGICAL PROCEDURE.Joshua Moscoso 1995 [id number] femaleLOG ID: [id number]/Procedure Date: 10/04/2017Incision/Procedure Start Time: 1:06 PMIncision Close/Procedure End Time: 2:02 PMSurgeon(s)/Proceduralist(s ) and Chain Saw Driver(s):Surgeon(s) and Role: * Basim Prince - PrimaryPhysician Chain Saw Driver: Pamela SanchezERRVIRGIE PHYSICIAN:OutpatientDEPT: JUDITH PROVIDER: James POS:[id number] : GeneralASA CLASS: 2 - mildDIAGNOSIS: biliary colic, cholelithiasisPROCEDURE: LAPAROSCOPIC CHOLECYSTECTOMY WITH INTRAOPERATIVE CHOLEANGIOGRAM- 88372-262TGF: 1000EBL: 10Specimens: gtallbladderADDITIONAL DIAGNOSES:FINDINGS: normal IOCCOMPLICATIONS: NonePMHx -PAST MEDICAL HISTORYDiagnosis Date- CholelithiasesCOMORBIDITIES - ObesityPost Op Occurrences - NoneWound Classification - Clean ContaminatedOperative note dictated in the dictation system. - [id number] Prince MD [facility] HISTORY PHYSICALon 201 8 HISTORY PHYSICAL HNO ID: [id number] thor: Basim Vargheseice: General SurgeryAuthor Type: PhysicianType: [...] pulse 76, height 167.6 cm (5' 6), dlndip91.4 kg (206 lb). Body mass index is [...] procedure.?Planned Procedure: LAPAROSCOPIC CHOLECYSTECTOMY WITH INTRAOPERATIVECHOLEANGIOGRAM - 18244-900?Planned antibiotic: Ancef 2gm IVPB online producer to OR?SCDs needed - Yes?Chain Saw Driver Needed - No?Diagnoses: (R10.11) RUQ pain (primary encounter diagnosis)? Basim Prince MD [facility] NURSING PROGon 10-04-2017 NURSING PROG HNO ID: [id number] thor: [place]) Suzan Wilson: (none)Author Type: Registered NurseType: Nursing Progress NoteFiled: 10/04/2017 6:57 PMNote Text: Nursing Progress NotePatient Name: Joshua DiazRN: [id number] Location: [place] Surgery/[place] Surgery Daily Note:Pt. States her nausea is gone and feels much better. Pain tolerable menezes/c home and wants to be d/c home.This note was completed by: Jennie Wilson RN [facility] NURSING PROG HNO ID: [id number] thor: [place]) Suzan Wilson: (none)Author Type: Registered NurseType: Nursing Progress NoteFiled: 10/04/2017 5:00 PMNote Text: Nursing Progress NotePatient Name: Joshua DiazRN: [id number] Location: [place] Surgery/ME Surgery Daily Note:Pt up to BR with assist. Pt. Able to urinate without difficulty. Smallemesis prior to getting up. States nausea feels better.This note was completed by: Jennie Wilson RN [facility] NURSING PROG HNO ID: [id number] thor: Yamilet (Rn) Horta, RNService: (none)Author Type: Registered NurseType: Nursing Progress NoteFiled: 10/04/2017 2:05 PMNote Text: Nursing Progress NotePatient Name: Joshua DiazRN: [id number] Location: [place] Surgery/ME Surgery Report off to ANA Egan for lunch coverage. IV site withoutcomplications. Pt smiling, pleasant and in NAD. Care relinquished.This note was completed by: Yamilet Horta RN [facility] NURSING PROG HNO ID: [id number] thor: Yamilet (Rn) Dina Hortaice: (none)Author Type: Registered NurseType: Nursing Progress NoteFiled: 10/04/2017 11:08 AMNote Text: Nursing Progress NotePatient Name: Joshua DiazRN: [id number] Location: [place] Surgery/[place] Surgery OR notified RN of possible 30-40 minute delay. Pt/family aware. Ptcontinues to laugh and denies pain or concerns. IV site withoutcomplications, NPO maintained. Warm blanket applied.This note was completed by: Yamilet Horta RN [facility] NURSING PROG HNO ID: [id number] thor: Yamilet (Rn) Dina Hortaice: (none)Author Type: Registered NurseType: Nursing Progress NoteFiled: 10/04/2017 10:36 AMNote Text: Nursing Progress NotePatient Name: Joshua RodriguezN: [id number] Location: [place] Surgery/[place] Surgery Family at bedside. IV infusing and site without complications. Ptlaughing and refuses warm blanket. Ready for OR.This note was completed by: Yamilet Horta RN [facility] OPERATIVE NOon 10-04-2017 OPERATIVE NO HNO ID: [id number] thor: Basim Sheridanervice: General SurgeryAuthor Type: PhysicianType: Operative ReportFiled: 10/05/2017 8:02 AMNote Text:[facility]- Operative ReportBESSJOSHUA MDOB: 1995 AGE: 22 SEX: FMRN: [id number] ACCTNUM: [id number] SVC: GENS LOCATION: [address] PHYSICIAN: BASIM SLOANANDATE OF PROCEDURE: 10/04/2017SURGEON: Basim Prince M.D.DRUM REEL CUTTER: NONEANESTHESIA: General endotracheal.PREOPERATIVE DIAGNOSIS(ES): Symptomatic cholelithiasis, biliary colic.POSTOPERATIVE DIAGNOSIS(ES): Symptomatic cholelithiasis, biliary colic,normal cholangiogram.NAME OF OPERATION: Laparoscopic cholecystectomy with cholangiogram.INDICATIONS:ES TIMATED BLOOD LOSS: 10 mL.COMPLICATIONS: None.SPECIMENS: Gallbladder.DRAINS: None.URINE OUTPUT: No catheter.LOG ID: [id number].START TIME: 1:06 p.m.END TIME: 2:02 p.m.ASA: 2.IV [...] removedthrough the umbilical port site. 0 Maxon slttdb-uy-[id number] suture wasplaced into the defect. The gallbladder [...] present for the entire case. Pamela Welsh, physician'travist, provided skin closure.Basim Prince M.D.General SurgeryRG:[id number]: 10/04/2017 14:09:38T: 10/04/2017 22:16:14Job #: [id number] [facility] PLAN OF CAREon 10-04-2017 PLAN OF CARE HNO ID: [id number] thor: Kathrine Alarcon ([employer])Service: (none)Author Type: TechnicianType: Plan of CareFiled: 10/04/2017 3:36 PMNote Text:[employer] BEDSIDE DELIVERY SURVEY1. Patient to use [facility] Bedside Delivery - YES2. If fax, patient would like us to fax prescriptions to [facility] a. Pharmacy: b. Location: c. Phone:3. Insurance card on file - YES4. Credit card for payment - YESPHARMWASHINGTON [facility] BEDSIDE DELIVERY SERVICEPatient Name: Joshua DiazRN: [id number] marked outpatient medications were Filled at: [place] and delivered tothe patient's bedside to pharm [...] ODT 10/02 ORAL PROBIOTIC 4X ORALDiana Dorian ([employer])PAGER: [phone] 3, 2018 3:36 PM [facility] PT EDon 10-04-2017 PT ED HNO ID: [id number] thor: Yamilet (Rn) DAYANA Hortaervice: (none)Author Type: Registered NurseType: Patient EducationFiled: 10/04/2017 10:35 AMNote Text:PRE OP LEARNING ASSESSMENTPROCEDURE/SURGERY: Lap cholecystectomyREADINESS TO LEARN eagerCOGNITIVE ABILITY: Alert and orientedMOTIVATION TO LEARN: EagerFAMILY SUPPORT: High - Very involved in pt carePATIENT LEARNS BEST BY: Individual InstructionFACTORS AFFECTING LEARNING: NonePHYSICAL LIMITATIONS AFFECTING LEARNING: NoneElectronically Signed By: Yamilet Horta RN [facility] SURGICAL PATHOLOGYon 018 SURGICAL PATHOLOGY [facility]: [id number] Physician: BASIM PRINCE MD FINAL DIAGNOSISGallbladder, cholecystectomy [...] surface is henry-pink and displays normal mucosal ridges.Job Honer sections are submitted in formalin in one cassette.KVB/dss 10/05/2017Gross examination performed at [facility], [address] [place], [place] [id number] of Report: 10/06/2017Date of Procedure: 10/04/2017Date of Receipt: 10/04/2017Submitted by: BASIM PRINCE MDLocation: MEORDiagnostic interpretation performed at [facility], [address] [place] [address]. [facility] Comment on above: Performed By: #### P ATHS ####[facility] [id number] [place], [place] [phone] XR CHOLANGIOGRAM INTRAOPon 0 10-04-2017 Cholesterol * * *Final Report* * *DATE OF EXAM: Oct 04 2017 1:35PM MDX 5421 - XR CHOLANGIOGRAM INTRAOP / REASON: EPIGASTRIC PAIN, CHOLELITHIASIS * * * * Physician Interpretation * * * * HISTORY: Cholelithiasis, epigastric painTECHNIQUE: Fluoroscopic intraoperative intensifier screen images were done.Fluoroscopic Radiation Summary:Plane A, Air Kerma: 2.5 mGyDose Area Product (DAP): 780.9 mGy*wqM1Bkkgrz time: 0:12 min:secRESULT: Contrast is shown in the biliary tree and flowing into the duodenum. No dilatation or obvious filling defect is seen.IMPRESSION: As in results.Referral Nurse: FRANK Transcribe Date/Time: Oct 04 2017 2:19PDictated by : CLOVER SHARMA MDThicynthia examination was interpreted and the report reviewed and electronically signed by: CLOVER SHARMA MD on Oct 04 2017 2:19PM [id number] [facility] NURSING PROGon 10-03-2017 NURSING PROG HNO ID: [id number] thor: Gloria Amado (Rn) Enedelia, DAYANAervice: (none)Author Type: Registered NurseType: Nursing Progress NoteFiled: 10/03/2017 3:45 PMNote Text:PACC Nurse Progress NoteHistory AND Physical:PACC Visit Date: 10/03/2017Labs Within Last 6 Months:N/AImaging Within Last 12 Months:See chartCardiac Testing:N/ALast Menstrual Period:LMP Date: 09/12/2017Risk Assessment:N/AAnesthesia Review:DOSNarrative:No new consults or testing ordered.Pre-op Considerations:N/AChart Check:Maurisio Mcdaniels RNJanuary 2017 3:44 PM [facility] HOSPon 09-28-2017 HOSP Patient:Joshua Moscoso MRN: Height:5' [...] days for the following basenames: K,HCTProgress Notes ([facility]):Teresa Sorto MA 09/28/2017 3:21 PM SignedREVIEW [...] 09/28/2017 3:39 PM SignedHISTORY AND PHYSICALEmtd [facility]1995REFERRING PHYSICIAN: Yousif Houser [facility] COMPLAINT: New PatientHPI: Joshua is a [...] patient's last Mammogram screening? N/A Last Colonoscopy: n/aACOURT NarvaezHYSICAL EXAMINATION:General: The patient is 22 year old [...] procedure.Planned Procedure: LAPAROSCOPIC CHOLECYSTECTOMY WITH INTRAOPERATIVECHOLEANGIOGRAM - 44669-015Hnhubao antibiotic: Ancef 2gm IVPB online producer to ORSCDs needed - YesAssistant Needed - NoDiagnoses: (R10.11) RUQ pain (primary encounter diagnosis) Basim Prince MD [facility] Lab Report: ,Urineo n 03-07-2017 Beta HCG ( test) Ql (U) Negative [employer] Work Phone: Office Visit: GERDon Dietary management education, guidance, and counseling (procedure) yes Invalid Interpretation Code [employer] Work Phone: Documentation of current medications (procedure) Done Invalid Interpretation Code [employer] Work Phone: Fall risk assessment No [employer] Work Phone: Tobacco smoking status NHIS Never [employer] Work Phone: Tobacco smoking status NHIS Former smoker [facility] Work Phone: Tobacco use [facility] Former smoker Invalid Interpretation Code [facility] Work Phone: Office Visit: GERDon 017 General categories [interpretation] of Cervical or vaginal smear or scraping by Cyto stain Unknown [facility] Work Phone: Vital Signs Date Time Vital Sign Value Performing Clinician Facility 03-30-2025 11:56-0400 Body temperature 97.9 [degF] Lesa Trill [employer]UR[employer] TECHNICIAN[employer]C Work Phone: [facility] 03-30-2025 11:56-0400 Diastolic blood pressure 74 mm[Hg] Lesa Trill [employer]URING TECHNICIAN-C Work Phone: [facility] 03-30-2025 11:56-0400 Heart rate 70 /min Lesa Trill [employer]ING TECHNICIAN-C Work Phone: [facility] 03-30-2025 11:56-0400 Respiratory rate 14 /min Lesa Trill [employer]URING TECHNICIAN-C Work Phone: [facility] 03-30-2025 11:56-0400 SaO2% (BldA) [Mass fraction] 100 % Lesa Trill [employer]URING TECHNICIAN-C Work Phone: [facility] 03-30-2025 11:56-0400 Systolic blood pressure 120 mm[Hg] Lesa Trill [employer]URING TECHNICIAN-C Work Phone: [facility] 03-30-2025 09:52-0400 Body height 167.64 cm Lesa Trill [employer]FA[employer]URING TECHNICIAN-C Work Phone: [facility] 03-30-2025 09:52-0400 Body mass index (BMI) [Ratio] 29.6 kg/m2 Lesa Trill [employer]URING TECHNICIAN-C Work Phone: [facility] 03-30-2025 09:52-0400 Body weight 83.27 kg Lesa Trill [employer]URING TECHNICIAN-C Work Phone: [facility] 03-14-2025 22:25-0400 Body temperature 98.1 [degF] Lesa Trill [employer]UFACTURING TECHNICIAN-C Work Phone: [facility] 03-14-2025 22:25-0400 Diastolic blood pressure 91 mm[Hg] Lesa Trill [employer] BI[employer]UFACTURING TECHNICIAN-C Work Phone: [facility] 03-14-2025 22:25-0400 Heart rate 59 /min Lesa Trill [employer]URING TECHNICIAN-C Work Phone: [facility] 03-14-2025 22:25-0400 Respiratory rate 16 /min Lesa Trill [employer] BI[employer]UFACTURING TECHNICIAN-C Work Phone: [facility] 03-14-2025 22:25-0400 SaO2% (BldA) [Mass fraction] 97 % Lesa Trill [employer]UFACTURING TECHNICIAN-C Work Phone: [facility] 03-14-2025 22:25-0400 Systolic blood pressure 125 mm[Hg] Lesa Trill [employer] BI[employer]UFACTURING TECHNICIAN-C Work Phone: [facility] 03-14-2025 19:38-0400 Body height 167.64 cm Lesa Trill [employer] BIOM[employer]UFACTURING TECHNICIAN-C Work Phone: [facility] 03-14-2025 19:38-0400 Body mass index (BMI) [Ratio] 28.7 kg/m2 Lesa Trill [employer]UFACTURING TECHNICIAN-C Work Phone: [facility] 03-14-2025 19:38-0400 Body weight 80.73 kg Lesa Trill [employer]FACTURING TECHNICIAN-C Work Phone: [facility] 02-06-2025 15:24-0400 Body temperature 98.2 [degF] Lesa Trill [employer]UFACTURING TECHNICIAN-C Work Phone: [facility] 02-06-2025 15:24-0400 Diastolic blood pressure 62 mm[Hg] Lesa Trill [employer] BI[employer]UFACTURING TECHNICIAN-C Work Phone: [facility] 02-06-2025 15:24-0400 Heart rate 85 /min Lesa Trill [employer]UFACTURING TECHNICIAN-C Work Phone: [facility] 02-06-2025 15:24-0400 Respiratory rate 16 /min Lesa Trill [employer] BI[employer]UFACTURING TECHNICIAN-C Work Phone: [facility] 02-06-2025 15:24-0400 SaO2% (BldA) [Mass fraction] 97 % Lesa Trill [employer] BIOM[employer]UFACTURING TECHNICIAN-C Work Phone: [facility] 02-06-2025 15:24-0400 Systolic blood pressure 127 mm[Hg] Lesa Trill [employer] BI[employer]FACTURING TECHNICIAN-C Work Phone: [facility] 02-06-2025 09:37-0400 Body height 167.64 cm Lesa Trill [employer]UFACTURING TECHNICIAN-C Work Phone: [facility] 02-06-2025 09:37-0400 Body mass index (BMI) [Ratio] 29.4 kg/m2 Lesa Trill [employer]UFACTURING TECHNICIAN-C Work Phone: [facility] 02-06-2025 09:37-0400 Body weight 82.7 kg Lesa Trill [employer]URING TECHNICIAN-C Work Phone: [facility] 11-08-2024 13:29-0500 Body height 167.6 cm Lesa Trill 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 Work Phone: [facility] 11-08-2024 13:29-0500 Body mass index (BMI) [Ratio] 31.31 kg/m2 Lesa Trill 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 Work Phone: [facility] 11-08-2024 13:29-0500 Body temperature 98.1 [degF] Lesa Trill 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 Work Phone: [facility] 11-08-2024 13:29-0500 Body weight 88 kg Lesa Trill 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 Work Phone: [facility] 11-08-2024 13:29-0500 Diastolic blood pressure 70 mm[Hg] Lesa Trill 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 Work Phone: [facility] 11-08-2024 13:29-0500 Heart rate 69 /min Lesa Soler 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 Work Phone: [facility] 11-08-2024 13:29-0500 SaO2% (BldA) [Mass fraction] 98 % Lesa Soler 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 Work Phone: [facility] 11-08-2024 13:29-0500 Systolic blood pressure 112 mm[Hg] Lesa Soler 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 Work Phone: [facility] 11-03-2024 10:57-0500 Body mass index (BMI) [Ratio] 32.27 kg/m2 Keely Reddy 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 Work Phone: [facility] 11-03-2024 10:57-0500 Body temperature 99.61 [degF] Keely Reddy [employer].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 Work Phone: [facility] 11-03-2024 10:57-0500 Body weight 90.7 kg Keely Reddy [employer].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 Work Phone: [facility] 11-03-2024 10:57-0500 Diastolic blood pressure 71 mm[Hg] Keely Reddy [employer].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 Work Phone: [facility] 11-03-2024 10:57-0500 Heart rate 77 /min Keely Reddy [employer].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 Work Phone: [facility] 11-03-2024 10:57-0500 Respiratory rate 18 /min Keely Reddy [employer].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 Work Phone: [facility] 11-03-2024 10:57-0500 SaO2% (BldA) [Mass fraction] 98 % Keely Reddy [employer].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 Work Phone: [facility] 11-03-2024 10:57-0500 Systolic blood pressure 105 mm[Hg] Keely Reddy [employer].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 Work Phone: [facility] 10-30-2024 08:01-0500 Body height 167.[address] [facility] 10-30-2024 08:01-0500 Body mass index (BMI) [Ratio] 31.47 kg/m2 Staci Givens RD [facility] 10-30-2024 08:01-0500 Body weight 88.[address] [facility] Comment on above: 1 mo ago [address] last [address] dias 09-11-2024 13:44-0500 Body height 167.[address] [facility] 09-11-2024 13:44-0500 Body mass index (BMI) [Ratio] 32.77 kg/m2 Staci Givens RD [facility] 09-11-2024 13:44-0500 Body weight 92.[address] [facility] 09-03-2024 13:25-0500 Body height 167.6 cm Lesa Soler APRN.CNP Work Phone: [facility] 09-03-2024 13:25-0500 Body mass index (BMI) [Ratio] 32.77 kg/m2 Lesa Soler APRN.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 Work Phone: [facility] 09-03-2024 13:25-0500 Body temperature 98.1 [degF] Lesa Soler APRN.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 Work Phone: [facility] 09-03-2024 13:25-0500 Body weight 92.08 kg Lesa Soler APRN.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 Work Phone: [facility] 09-03-2024 13:25-0500 Diastolic blood pressure 62 mm[Hg] Lesa Soler APRN.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 Work Phone: [facility] 09-03-2024 13:25-0500 Heart rate 78 /min Lesa Soler APRN.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 Work Phone: [facility] 09-03-2024 13:25-0500 SaO2% (BldA) [Mass fraction] 97 % Lesa Soler APRN.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 Work Phone: [facility] 09-03-2024 13:25-0500 Systolic blood pressure 108 mm[Hg] Lesa Soler APRN.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 Work Phone: [facility] 08-28-2024 09:55-0500 Body height 167.6 cm Mario Monique MD Work Phone: [facility] 08-28-2024 09:55-0500 Body mass index (BMI) [Ratio] 33.57 kg/m2 Mario Monique MD Work Phone: [facility] 08-28-2024 09:55-0500 Body weight 94.35 kg Mario Monique MD Work Phone: [facility] 08-28-2024 09:55-0500 Diastolic blood pressure 71 mm[Hg] Mario Monique MD Work Phone: [facility] 08-28-2024 09:55-0500 Heart rate 72 /min Mario Monique MD Work Phone: [facility] 08-28-2024 09:55-0500 Systolic blood pressure 108 mm[Hg] Mario Monique MD Work Phone: [facility] 03-30-2023 09:14-0400 Respiratory rate 14 /min [facility] 03-30-2023 07:47-0400 Diastolic blood pressure 79 mm[Hg] [facility] 03-30-2023 07:47-0400 Heart rate 81 /min [facility] 03-30-2023 07:47-0400 SaO2% (BldA) [Mass fraction] 96 % [facility] 03-30-2023 07:47-0400 Systolic blood pressure 141 mm[Hg] [facility] 03-29-2023 21:44-0400 Body temperature 97.2 [degF] [facility] 03-28-2023 09:05-0400 Body height 167.64 cm [facility] 03-28-2023 09:05-0400 Body mass index (BMI) [Ratio] 32.3 kg/m2 [facility] 03-28-2023 09:05-0400 Body weight 90.71 kg [facility] 02-28-2017 14:13-0400 BMI (Body Mass Index) 31.79 kg/m2 Joshua Marshall RN RN [facility] Work Phone: 02-28-2017 14:13-0400 Body Temperature 98.1 [degF] Joshua Marshall RN RN [facility] Work Phone: 02-28-2017 14:13-0400 Body weight 89.36 kg Collette Curiel MD [facility] Work Phone: 02-28-2017 14:13-0400 BP Diastolic 88 mm[Hg] Joshua Marshall RN RN [facility] Work Phone: 02-28-2017 14:13-0400 BP Systolic 120 mm[Hg] Johsua Marshall RN RN [facility] Work Phone: 02-28-2017 14:13-0400 BSA (Body Surface Area) 1.99 m2 Joshua Marshall RN RN [facility] Work Phone: 02-28-2017 14:13-0400 Height 167.64 cm Joshua Marshall RN RN [facility] Work Phone: 02-28-2017 14:13-0400 Pulse (Heart Rate) 58 /min Joshua Marshall RN RN [facility] Work Phone: 02-28-2017 14:13-0400 Pulse Oximetry 98 % Joshua Marshall RN RN [facility] Work Phone: 02-28-2017 14:13-0400 Respiratory Rate 16 /min Joshua Marshall RN RN [facility] Work Phone: 02-28-2017 14:13-0400 Weight 89.36 kg Joshua Marshall RN RN [facility] Work Phone: Encounters Encounter Date Encounter Type Care Provider Facility Start: 03-30-2025 End: 03-30-2025 Emergency department patient visit Lesa DANIEL Work Phone: -Emergency Department Work Phone: Start: 03-21-2025 End: 03-21-2025 Telephone encounter Lesa Soler APRN.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 Work Phone: [facility] Comment on above: Lab Orders Start: 03-18-2025 End: 03-18-2025 ambulatory Lesa Soler APRN.CNP Work Phone: [facility] Start: 03-18-2025 End: 03-18-2025 Follow-up encounter Lesa Soler APRN.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 Work Phone: [facility] Comment on above: ED Follow-up ([facility] ED 03/14/2025) Start: 03-14-2025 End: 03-14-2025 Emergency department patient visit Lesa DANIEL Work Phone: -Emergency Department Work Phone: Start: 02-14-2025 End: 02-14-2025 ambulatory Lesa Soler APRN.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 Work Phone: [facility] Start: 02-14-2025 End: 02-14-2025 Follow-up encounter Lesa Soler APRN.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 Work Phone: [facility] Comment on above: ED Follow-up ([facility] ED 02[facility]06/[facility] 02/08/2025) Start: 02-08-2025 End: 02-08-2025 Emergency department patient visit [facility] Start: 02-06-2025 End: 02-06-2025 Emergency department patient visit Lesa DANIEL Work Phone: -Emergency Department Work Phone: Start: 11-18-2024 End: 11-18-2024 ambulatory GEMA SMALL Facility:[facility] Comment on above: Procreative manageme nt (Primary [...] Follow-up encounter Lesa Soler APRN.CNP Work Phone: [facility] Start: 11-08-2024 End: 11-08-2024 Telephone encounter Lesa Soler APRN.CNP Work Phone: [facility] Start: 11-08-2024 End: 11-08-2024 Patient encounter procedure Lesa Soler APRN.PAOLA Work Phone: [facility] Comment on above: Type 2 diabetes kamlesh itus without complication, without long- term current use of insulin (HCC) (Primary Dx); Dyslipidemia; Hirsutism Start: 11-08-2024 End: 11-08-2024 ambulatory LESA SOLER Facility:[facility] Start: 11-03-2024 End: 11-03-2024 ambulatory LESA SOLER Facility:[facility] Start: 11-03-2024 End: 11-03-2024 Patient encounter procedure Keely Pereiraki MARINO Work Phone: [facility] Comment on above: URI, acute (Primary [...] Emergency department patient visit Lesa Soler NP Facility:[facility] Start: 09-19-2024 End: 09-20-2024 Telephone encounter Lesa Soler APRN.CNP Work Phone: [facility] Comment on above: Results (labs) Start: 09-11-2024 End: 09-11-2024 ambulatory STACI GIVENS Facility:[facility] Start: 09-11-2024 End: 09-11-2024 Nutrition therapy [address]aci Givens RD [facility] Comment on above: Dietary counseling ( Primary Dx); Type 2 diabetes mellitus without complication, without long-term current use of insulin (HCC); PCOS (polycystic ovarian syndrome) Start: 09-11-2024 End: 09-11-2024 Telemedicine consultation with patient Staci Givens RD [facility] Start: 09-11-2024 End: 09-11-2024 ambulatory LESA SOLER Facility:[facility] Start: 09-03-2024 End: 09-03-2024 ambulatory LESA SOLER Facility:[facility] Start: 09-03-2024 End: 09-03-2024 Patient encounter procedure Lesa Soler APRN.CNP Work Phone: [facility] Comment on above: Type 2 diabetes kamlesh itus without complication, without long- term current use of insulin (HCC) (Primary Dx); Chronic diarrhea; Early satiety; Chronic nausea Start: 08-28-2024 End: 08-28-2024 ambulatory MARIO MONIQUE Facility:[facility] Start: 08-28-2024 End: 08-28-2024 Patient encounter procedure Mario Monique MD Work Phone: OB/Gynecology Comment on above: Encounter for gyneco logical examination (general) (routine) without abnormal findings (Primary Dx); Screening for malignant neoplasm of cervix; PCOS (polycystic ovarian syndrome); Primary female infertility Start: 08-28-2024 End: 08-28-2024 Patient encounter status Mario Monique MD Work Phone: [facility] Work Phone: Start: 07-15-2024 End: 07-15-2024 Emergency department patient visit Maius Marley Facility:[facility] Start: 03-28-2023 End: 03-30-2023 Emergency department patient visit [facility]-Emergency Department Work Phone: Start: 10-04-2017 End: 10-04-2017 Ambulatory [facility] Procedures Date Procedure Procedure Detail Performing Clinician Start: 03-30-2025 Estimated creatinine clearance Lesa Trill [employer]UR[employer] TECHNICIAN-C Work Phone: Start: 03-30-2025 Urnls dip stick/tabl et reagent auto microscopy Lesa Trill [employer] BIOMANUFACTURING TECHNICIAN-C Work Phone: Start: 03-14-2025 Estimated creatinine clearance Lesa Trill [employer]STREAM BIOMANUFACTURING TECHNICIAN-C Work Phone: Start: 02-06-2025 Methadone measuremen t, urine Lesa Trill [employer] BIOMANUFACTURING TECHNICIAN-C Work Phone: Start: 02-06-2025 Estimated creatinine clearance Lesa Trill UPSTREAM BIOMANUFACTURING TECHNICIAN-C Work Phone: Start: 11-08-2024 Urine albumin quantitative Lesa Potts Trill [employer].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 Work Phone: Start: 11-03-2024 STREP A MOLECULAR (POC) Keely Reddy [employer].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 Work Phone: Start: 03-29-2023 CT of abdomen and pe lvis without contrast Start: 03-28-2023 SARS-CoV-2 & FLU Ant igen (Rapid) Start: 02-28-2017 End: 02-28-2017 Dietary management education, guidance, and counseling Collette Curiel MD Start: 02-28-2017 End: 02-28-2017 Documentation of current medications Collette Curiel MD Plan of Treatment Date Care Activity Detail Author Start: 08-28-2029 Screening for malignant neoplasm of cervix Cervical Cancer Screening [facility] Start: 11-08-2025 Annual PCP Team Chronic Disease Visit Annual PCP Team Chronic Disease Visit [facility] Start: 11-08-2025 Hepatitis B screening Urine Albumin:Creatinine Ratio [facility] Start: 11-08-2025 Pneumococcal vaccination Pneumococcal Vaccine (1 of 2 - PCV) [facility] Comment on above: Postponed from 02/06/2012 (Declined at t his time) Start: 09-11-2025 Hepatitis B surface antibody level LDL Cholesterol [facility] Start: 09-03-2025 Annual PCP Team Chronic Disease Visit Annual PCP Team Chronic Disease Visit [facility] Start: 09-03-2025 Anxiety Screening Anxiety Screening [facility] Comment on above: Postponed from 2011 (Declined at t his time) Start: 09-03-2025 Covid-19 Vaccine ( season) Covid-19 Vaccine ( season) [facility] Comment on above: Postponed from 06/02/2024 (Declined at t his time) Start: 09-03-2025 Urine microalbumin profile DTaP,Tdap,Td Vaccine (1 - Tdap) [facility] Comment on above: Postponed from 02/06/2012 (Declined at t his time) Start: 08-29-2025 End: 08-29-2025 Patient encounter procedure 08/29/2025 8:45 AM EST Office Visit OB/Gynecology [address] [place], [place] [id number] [place] [address] [facility] [address] [place] [address] annual OB/Gynecology Comment on above: annual Start: 06-02-2025 Influenza vaccination Influenza Vaccine (Season Ended) [facility] Start: 03-31-2025 Influenza [facility] Comment on above: Postponed from 06/02/2024 (Declined at t his time) Start: 03-30-2025 [facility] Start: 03-21-2025 End: 10-17-2025 CBC panel - Blood by Automated count COMPLETE BLOOD COUNT Lab Routine Dyslipidemia Expected: 03/21/2025, Expires: 10/17/2025 [facility] Work Phone: Comment on above: Expected: 03/21/2025, Expires: Start: 03-21-2025 End: 10-17-2025 Comprehensive metabolic 2000 panel - Serum or Plasma COMPREHENSIVE METABOLIC PANEL Lab Routine Dyslipidemia Expected: 03/21/2025, Expires: 10/17/2025 [facility] Comment on above: Expected: 03/21/2025, Expires: Start: 03-21-2025 End: 06-20-2025 Lipid 1996 panel - Serum or Plasma LIPID PANEL, FASTING Lab Routine Dyslipidemia Expected: 03/21/2025, Expires: 06/20/2025 [facility] Comment on above: Expected: 03/21/2025, Expires: Start: 03-14-2025 [facility] Start: 03-12-2025 Hemoglobin A1c measurement HbA1C [facility] Start: 02-06-2025 [facility] Start: 11-18-2024 End: 02-17-2025 25-hydroxyvitamin D3 [Mass/volume] in Serum or Plasma VITAMIN D 25 HYDROXY Lab Routine Procreative management Expected: 11/18/2024, Expires: 02/17/2025 [facility] Comment on above: Expected: 11/18/2024, Expires: Start: 11-18-2024 End: 02-17-2025 ANTI MULLERIAN HORMONE ANTI MULLERIAN HORMONE Lab Routine Encounter for fertility testing Expected: 11/18/2024, Expires: 02/17/2025 [facility] Comment on above: Expected: 11/18/2024, Expires: Start: 11-18-2024 End: 02-17-2025 CBC panel - Blood by Automated count COMPLETE BLOOD COUNT Lab Routine PCOS (polycystic ovarian syndrome) Irregular bleeding Expected: 11/18/2024, Expires: 02/17/2025 [facility] Comment on above: Expected: 11/18/2024, Expires: Start: 11-18-2024 End: 02-17-2025 Chlamydia trachomatis+Neisseria gonorrhoeae DNA [Presence] in Unspecified specimen by MURALI with probe detection GONORRHEA/CHLAMYDIA NAAT Lab Routine Screen for STD (sexually transmitted disease) Expected: 11/18/2024, Expires: 02/17/2025 [facility] Comment on above: Expected: 11/18/2024, Expires: Start: 11-18-2024 End: 02-17-2025 Choriogonadotropin.bet a subunit [Units/volume] in Serum or Plasma HCG QUANTITATIVE Lab Routine PCOS (polycystic ovarian syndrome) Expected: 11/18/2024, Expires: 02/17/2025 [facility] Comment on above: Expected: 11/18/2024, Expires: Start: 11-18-2024 End: 02-17-2025 DHEA-S BLD DHEA-S BLD Lab Routine Encounter for fertility testing Expected: 11/18/2024, Expires: 02/17/2025 [facility] Comment on above: Expected: 11/18/2024, Expires: Start: 11-18-2024 End: 02-17-2025 Estradiol (E2) [Mass/volume] in Serum or Plasma ESTRADIOL-17B BLD Lab Routine Encounter for fertility testing Expected: 11/18/2024, Expires: 02/17/2025 [facility] Comment on above: Expected: 11/18/2024, Expires: Start: 11-18-2024 End: 02-17-2025 Hemoglobin A1c in Blood HEMOGLOBIN A1C Lab Routine Procreative management Expected: 11/18/2024, Expires: 02/17/2025 [facility] Comment on above: Expected: 11/18/2024, Expires: Start: 11-18-2024 End: 02-17-2025 Hepatitis B virus core Ab [Presence] in Serum HEPATITIS B CORE ANTIBODY TOTAL Lab Routine Screening for STD (sexually transmitted disease) Expected: 11/18/2024, Expires: 02/17/2025 [facility] Comment on above: Expected: 11/18/2024, Expires: Start: 11-18-2024 End: 02-17-2025 Hepatitis B virus surface Ag [Presence] in Serum HEPATITIS B SURFACE ANTIGEN Lab Routine Screening examination for STD (sexually transmitted disease) Expected: 11/18/2024, Expires: 02/17/2025 [facility] Comment on above: Expected: 11/18/2024, Expires: Start: 11-18-2024 End: 02-17-2025 Hepatitis C virus Ab [Presence] in Serum HEPATITIS C ANTIBODY IA WITH CONFIRMATION Lab Routine Screening examination for STD (sexually transmitted disease) Expected: 11/18/2024, Expires: 02/17/2025 [facility] Comment on above: Expected: 11/18/2024, Expires: Start: 11-18-2024 End: 02-17-2025 HIV 1+2 Ab [Presence] in Serum or Plasma by Immunoassay HIV 1/2 COMBO WITH REFLEX TO DIFFERENTIATION Lab Routine Screening examination for STD (sexually transmitted disease) Expected: 11/18/2024, Expires: 02/17/2025 [facility] Comment on above: Expected: 11/18/2024, Expires: Start: 11-18-2024 End: 02-17-2025 Progesterone [Mass/volume] in Serum or Plasma PROGESTERONE Lab Routine Encounter for fertility testing Expected: 11/18/2024, Expires: 02/17/2025 [facility] Comment on above: Expected: 11/18/2024, Expires: Start: 11-18-2024 End: 02-17-2025 Prolactin [Mass/volume] in Serum or Plasma PROLACTIN Lab Routine Encounter for fertility testing Expected: 11/18/2024, Expires: 02/17/2025 [facility] Comment on above: Expected: 11/18/2024, Expires: Start: 11-18-2024 End: 02-17-2025 RUBELLA IGG ANTIBODY RUBELLA IGG ANTIBODY Lab Routine Procreative management Expected: 11/18/2024, Expires: 02/17/2025 [facility] Comment on above: Expected: 11/18/2024, Expires: Start: 11-18-2024 End: 02-17-2025 SYPHILIS TREPONEMAL W/REFLEX SYPHILIS TREPONEMAL W/REFLEX Lab Routine Screening examination for STD (sexually transmitted disease) Expected: 11/18/2024, Expires: 02/17/2025 [facility] Comment on above: Expected: 11/18/2024, Expires: Start: 11-18-2024 End: 02-17-2025 Testosterone [Mass/volume] in Serum or Plasma TESTOSTERONE, TOTAL BY IMMUNOASSAY (ADULT MALES, OR INDIVIDUALS ON TESTOSTERONE THERAPY) Lab Routine Encounter for fertility testing Expected: 11/18/2024, Expires: 02/17/2025 [facility] Comment on above: Expected: 11/18/2024, Expires: Start: 11-18-2024 End: 02-17-2025 Thyrotropin [Units/volume] in Serum or Plasma THYROID STIMULATING HORMONE Lab Routine Encounter for fertility testing Expected: 11/18/2024, Expires: 02/17/2025 [facility] Comment on above: Expected: 11/18/2024, Expires: 5 Start: 11-18-2024 End: 02-17-2025 TYPE + SCREEN TYPE + SCREEN Blood Bank Routine Procreative management Expected: 11/18/2024, Expires: 02/17/2025 [facility] Work Phone: Comment on above: Expected: 11/18/2024, Expires: 5 Start: 11-18-2024 End: 11-18-2025 US Uterus and Fallopian tubes W saline IU SONOHYSTEROGRAPHY (SIS) US [facility] Anc Imaging Routine PCOS (polycystic ovarian syndrome) Encounter for fertility testing Irregular bleeding Expected: 11/18/2024, Expires: 11/18/2025 [facility] Comment on above: Expected: 11/18/2024, Expires: Start: 11-18-2024 End: 02-17-2025 VARICELLA ZOSTER IGG VARICELLA ZOSTER IGG Lab Routine Procreative management Expected: 11/18/2024, Expires: 02/17/2025 [facility] Comment on above: Expected: 11/18/2024, Expires: Start: 11-18-2024 End: 11-18-2024 Patient encounter procedure 11/18/2024 1:00 PM EST Office Visit [facility]ro[facility]ocrin[facility] [address] [facility] [address] Gema Small PA-C [address] [place], [place] [id number] PCOS (polycystic ovarian syndrome) [E28.2] [facility] Comment on above: PCOS (polycystic ovarian syndrome) [E28. 2] Start: 11-08-2024 Depression Screening Depression Screening [facility] Comment on above: Postponed from 2011 (Declined at t his time) Start: 11-08-2024 End: 11-08-2024 Patient encounter procedure 11/08/2024 1:40 PM EST Office Visit [address] [address] Lesa Soler [employer].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 [address] [place] [address] 6-8 WK F/U DM [facility] Comment on above: 6-8 WK F/U DM Start: 10-30-2024 End: 10-30-2024 Follow-up encounter 10/30/2024 8:00 AM EST Education Nutrition Therapy [address] [address] Staci Givens, RD [address] [place] [address] follow up Nutrition Therapy Comment on above: follow up Start: 10-22-2024 End: 10-22-2024 Patient encounter procedure 10/22/2024 1:00 PM EST Office Visit [facility] [address] [place] [address] Lesa Soler, [employer].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 [address] [place] [address] 6-8 WK F/U DM [facility] Comment on above: 6-8 WK F/U DM Start: 10-22-2024 End: 10-22-2024 Follow-up encounter 10/22/2024 8:00 AM EST Education [facility] [address] [address] Staci Givens, CARLOS [address] [place] [address] follow up Nutrition Therapy Comment on above: follow up Start: 09-03-2024 End: 09-03-2024 Patient encounter procedure 09/03/2024 1:20 PM EST Office Visit [facility] [address] [place] [address] Lesa Soler, [employer].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 [address] [place] [address] WebAppointment Request #[id number] [facility] Comment on above: WebAppointment Request #[id number] Start: 06-02-2024 Covid-19 Vaccine ( season) Covid-19 Vaccine ( season) [facility] Start: 06-02-2024 [facility] Start: 03-28-2023 Referral to service [facility] Start: 03-28-2023 End: 03-28-2023 Suicide precautions [facility] Start: 03-07-2017 End: 03-07-2017 Appointment Appointment [facility] Work Phone: Start: 02-28-2017 End: 02-28-2017 Appointment Appointment [facility] Work Phone: Start: 02-28-2017 End: 03-01-2017 Follow Up Appt Other Follow Up Appt Other [facility] Work Phone: Start: 02-28-2017 End: 02-28-2017 Uppr gi endoscopy, diagnosis Upper gastrointestinal endoscopy [facility] Work Phone: Start: 2014 Screening for malignant neoplasm of cervix Cervical Cancer Screening [facility] Start: 02-06-2012 Hepatitis B Vaccine (1 of 3 - 19+ 3-dose series) Hepatitis B Vaccine (1 of 3 - 19+ 3-dose series) [facility] Start: 02-06-2012 Pneumococcal vaccination Pneumococcal Vaccine (1 of 2 - PCV) [facility] Start: 02-06-2012 Urine microalbumin profile DTaP,Tdap,Td Vaccine (1 - Tdap) [facility] Start: 2011 Anxiety Screening Anxiety Screening [facility] Start: 2011 Depression Screening Depression Screening [facility] Start: 2011 Hepatitis C screening Hepatitis C Screening [facility] Start: 2011 HIV screening HIV Screening [facility] Start: 2003 Diabetic foot examination Diabetic Foot Exam [facility] Start: 2003 Glaucoma screening Dilated Retinal Exam [facility] Start: 2003 Hepatitis B screening Urine Albumin:Creatinine Ratio [facility] Start: 1999 Pneumococcal vaccination Pneumococcal Vaccine (1 of 2 - PCV) [facility] COVID & INFLUENZA A/ B & RSV PCR, ROUTINE COVID & INFLUENZA A/B & RSV PCR, ROUTINE Microbiology Routine URI, acute Ordered: 11/03/2024 [facility] Work Phone: Comment on above: Ordered: 11/03/2024 PAP TEST PAP TEST Lab Rou vi Screening for malignant neoplasm of cervix 08/28/2024 10:22 AM EST [facility] Work Phone: Patient Education [facility] Eddie Faulkner Work Phone: Patient referral [facility] Work Phone: End: 12-16-2025 RF Uterus and Fallopian tubes Views W contrast IU XR HYSTEROSALPINGOGRAM Radiology Routine Encounter for fertility testing H/O unilateral salpingectomy 1 Occurrences starting 11/18/2024 until 12/16/2025 [facility] Comment on above: 1 Occurrences starting 11/18/2024 until 12/16/2025 Payers Date Payer Category Payer Self-pay [id number] [phone] [id number] 2024 Medicaid [employer] Member [place] bscriber Plan / Payer (Effective 2024-Present) Name: Joshua Choudhary Relation to Subscriber: Self Name: Joshua Choudhary Payer ID: [id number] (NAIC) Group ID: Not on file Type: Medicaid Address: [address] [id number] [place] [address] [id number] 2024 Private Health Insurance HUMANA HUMANA MEDICAID [facility] [id number] 2024-Present [address] [address] [place] [address] Medicaid [id number] 2024 Medicaid [id number] 2016 Unknown [id number] 1993 Unknown [id number] Unknown [id number] Unknown [facility] [id number] Unknown [id number] Unknown [id number] Unknown [id number] Unknown [id number] 462 Unknown [id number] 462 Social History Date Type Detail Facility Start: 03-28-2023 Tobacco smoking status NYIS Unknown if ever smoked [facility] Start: 01-09-2019 Alone [facility] Start: 1995 Sex Assigned At Female W [facility] Start: 08-28-2024 End: 02-06-2025 Tobacco smoking status NYIS Never smoked tobacco [facility] Start: 08-28-2024 Tobacco use and exposure Smokeless tobacco non-user [facility] Start: 08-28-2024 End: 11-27-2024 Alcoholic beverage intake Ex-drinker (finding) [facility] Start: 08-28-2024 End: 09-11-2024 History of Social function [facility] Start: 08-28-2024 End: 09-11-2024 Tobacco use panel [facility] National Score (1-100), lower number is lower risk 66 [facility] Start: 1995 Sex assigned at Not on file [facility] Start: 03-14-2025 End: 03-30-2025 Tobacco smoking status NHIS Smokes tobacco daily (finding) [facility] NEGATED: Highlighted row [facility] Functional Status Date Assessment Result Facility 11-08-2014 Are you deaf, or do you have serious difficulty hearing No 11/08/2014 11:42 AM Charlene Rodas MA No [facility] 11-08-2014 Are you blind, or do you have serious difficulty seeing, even when wearing glasses No 11/08/2014 11:42 AM Charlene Rodas MA No [facility] 11-08-2014 Do you have serious difficulty walking or climbing stairs No 11/08/2014 11:42 AM Charlene Rodas MA No [facility] 11-08-2014 Do you have difficul ty dressing or bathing No 11/08/2014 11:42 AM Charlene Rodas MA No [facility] 11-08-2014 Because of a physica l, mental, or emotional condition, do you have difficulty doing errands alone such as visiting a physician's office or shopping No 11/08/2014 11:42 AM Charlene Rodas MA [facility] Mental Status Date Assessment Result Facility 11-08-2014 Because of a physica l, mental, or emotional condition, do you have serious difficulty concentrating, remembering, or making decisions No 11/08/2014 11:42 AM Charlene Rodas MA No [facility] Clinical Notes 03-28-2023 to 03-21-2025 Telephone [...] any questions or concerns. Myra Duran MA [facility] 03-21-2025 Miscellaneous Notes Formattin g of this note might be different from the original. Left message informing patient, phone number to reach the office was left for any questions or concerns. Myra Duran MA Addended by: LESA SOLER on: 03/21/2025 10:13 AM Modules accepted: Orders Thank you. Please see orders. Lesa Soler APRN.CNP Nitza Duran MA documented in this encounter [facility] 03-21-2025 Note Addended by: LESA SOLER on: 03/21/2025 10:13 AM Modules accepted: Orders [facility] 03-21-2025 Telephone encount er Note Thank you. Please see orders. Lesa Soler APRN.CNP [facility] 03-21-2025 Telephone encount er Note Nitza Duran MA [facility] 03-18-2025 Note HNO ID: [id number] Author: NAOMIE MCGUIRE LPN Service: ? Author Type: LICENSED NURSE Type: Progress Notes Filed: 03/18/2025 10:35 Note Text: ED Follow-Up Note Provider Action / FYI: Call completed by: SHAISTA Patient seen in ED: Out of Network ED Contact made with Patient: No, left message. Naomie Mcguire LPN March 18, 2025 10:35 AM [facility] 03-18-2025 History of Presen t illness Narrative ED Follow-Up Note Provider Action / FYI: Call completed by: SHAISTA Patient seen in ED: Out of Network ED Contact made with Patient: No, left message. Naomie Mcguire LPN March 18, 2025 10:35 AM documented in this encounter [facility] 03-18-2025 Note Patient Outreach (AG FAMPLE) JOSHUA CHOUDHARY ([id number]) 1995 F Date Time Provider Department 03/18/25 [...] Date Reviewed: 11/27/2024 Reviewed by: Lesa Soler APRN.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 - Fully Assessed Reason for Visit: ED [...] Encounter Status:Closed by NAOMIE MCGUIRE on 03/18/25 [facility] 02-14-2025 Note HNO ID: [id number] Author: NAOMIE MCGUIRE LPN Service: ? Author Type: LICENSED NURSE Type: Progress Notes Filed: 02/14/2025 11:01 Note Text: ED Follow-Up Note Provider Action / FYI: Call completed by: SHAISTA Patient seen in ED: Out of Network ED Contact made with Patient: No, left message. Naomie Mcguire LPN February 14, 2025 11:00 AM [facility] 02-14-2025 History of Presen t illness Narrative ED Follow-Up Note Provider Action / FYI: Call completed by: SHAISTA Patient seen in ED: Out of Network ED Contact made with Patient: No, left message. Naomie Mcguire LPN February 14, 2025 11:00 AM documented in this encounter [facility] 02-14-2025 Note Patient Outreach (YULY YAÑEZ) JOSHUA CHOUDHARY ([id number]) 1995 F Date Time Provider Department 02/14/25 [...] Date Reviewed: 11/27/2024 Reviewed by: Lesa Soler APRN.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 - Fully Assessed Reason for Visit: ED Follow-up [821] Cmt: [facility]06[facility] 02[facility]25 Prescriptions as of 02/14/2025 [...] Encounter Status:Closed by NAOMIE MCGUIRE on 02/14/25 [facility] 02-06-2025 Discharge summary Note Date/Time February 06, 2025 1:47pm [facility] Medical Records Department [address] [place] [address] Emergency Department Summary 02/06/25 MR#: [id number] Acct: [id number] Name: JOSHUA CHOUDHARY Rep #:[id number] : 1995 30 From: Juan Tapia MD [...] states she wants her panic to stop. [facility] Medical History Anxiety disorder [...] 0 current occupational status: employed current occupation: [employer] Smoking Status: Never smoker Smokeless [...] 82.8 H Lymph % (Auto) 13.9 L Grainger % (Auto) 2.3 Eos % (Auto) 0.0 [...] Lesa Soler NP Referrals: Lesa Soler NP, UPSTREAM BIOMANUFACTURING TECHNICIAN-C [Primary Care Provider] - 3-5 Days if not improving Activity Restrictions/Additional Instructions: Follow-up with your psychiatrist as well. Return to the emergency department with new or worsening symptoms. Print Language: Solomon Islander Disposition Disposition: Home, Self Care What to do if you have Problems For any increased pain, shortness of breath, bleeding, nausea or vomiting, chestpain, or any unexpected problems, contact your Primary Care Provider. Call [facility] ([phone]) or report to the closest Emergency Room. Call 911 if necessary. 02/06/25 1347 <Electronically signed by Juan Tapia MD> Cosigner Signature (if applicable): CC: TAMIE-C Lesa Soler ~ Signed [facility] Work Phone: 1(311) 508-703105-08-2025 Discharge summary [facility] Medical Records Department [address] [place] [address] Emergency Department Summary 02/06/25 MR#: [id number] Acct: [id number] Name: JOSHUA CHOUDHARY Rep #:[id number] : 1995 30 From: Juan Tapia MD [...] states she wants her panic to stop. [facility] Medical History Anxiety disorder [...] 0 current occupational status: employed current occupation: [employer] Smoking Status: Never smoker Smokeless [...] 82.8 H Lymph % (Auto) 13.9 L Grainger % (Auto) 2.3 Eos % (Auto) 0.0 [...] Lesa Soler NP Referrals: Lesa Soler NP, UPSTREAM BIOMANUFACTURING TECHNICIAN-C [Primary Care Provider] - 3-5 Days if not improving Activity Restrictions/Additional Instructions: Follow-up with your psychiatrist as well. Return to the emergency department with new or worsening symptoms. Print Language: [place] Islander Disposition Disposition: Home, Self Care What to do if you have Problems For any increased pain, shortness of breath, bleeding, nausea or vomiting, chestpain, or any unexpected problems, contact your Primary Care Provider. Call [facility] ([phone]) or report tothe closest Emergency Room. Call 911 if necessary. 02/06/25 9750 Cosigner Signature (if applicable): CC: FREDY Soler ~ Signed [facility]02-17-2025 NoteHNO ID: [id number] Author: GEMA SMALL PA-C Service: ? Author Type: Physician Chain Saw Driver Type: Progress Notes Filed: 11/18/2024 14:42 Note [...] visit. Either the patient or their legal charter representative has been informed of the risks [...] requesting physician via US mail. Mario Monique [id number] [facility] [address] CHIEF COMPLAINT: Procreative management and counseling HISTORY OF PRESENT ILLNESS Joshua Choudhary is a 29 year old female for 5-6 years.Together for 10. Little protection for 10 years, actively TTC for 2-3 years. Not sure if she wants a child at this time. Would like to conceive in 2 years. 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 Mainly wishes to investigate the PCOS [...] methods. Would like to have one child. SYSTEMS SPEC HISTORY: Menarche: 12 Cycle Length: 30-60 days [...] 07/03/2018 EGD LAPAROSCOPY SURG (more content not included)...[facility] 11-18-2024 History of Present illness Narrative* [...] requesting physician via US mail. Mario Monique [id number] [facility] [address] CHIEF COMPLAINT: Procreative management and counseling HISTORY OF PRESENT ILLNESS Joshua Choudhary is a 29 year old female for 5-6 years.Together for 10. Little protection for 10 years, actively TTC for 2-3 years. Not sure if she wants a child at this time. Would like to conceive in 2 years. 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 Mainly wishes to investigate the PCOS [...] methods. Would like to have one child. SYSTEMS SPEC HISTORY: Menarche: 12 Cycle Length: 30-60 days [...] coordination (not separately reported). [facility] Telephone encounter Note * Telephone Encounter - Gloria Evans MA - 11/12/2024 10:27 AM EST Lm on pt. Vm with results. Gloria Evans MA [facility]02-11-2025 Telephone encounter Note* Telephone Encounter - Gloria Evasn MA - 11/12/2024 10:27 AM EST ----- Message from Lesa Soler APRN.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 sent at 11/12/2024 8:57 AM EST ----- Please notify patient results are normal. Thank you. Lesa Soler APRN.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 [facility]02-11-2025 Miscellaneous Notes* Telephone Encounter - Gloria Evans MA - 11/12/2024 10:27 AM EST Lm on pt. Vm with results. Gloria Evans MA * Telephone Encounter - Gloria Evans MA - 11/12/2024 10:27 AM EST ----- Message from Lesa Soler APRN.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 sent at 11/12/2024 8:57 AM EST ----- Please notify patient results are normal. Thank you. Lesa Soler APRN.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 [facility] Telephone encounter Note * Telephone Encounter - Gloria Evans MA - 11/08/2024 2:15 PM EST Per pt. She is requesting number to [place] sent to my chart. Gloria Evans MA [facility]02-07-2025 Miscellaneous Notes* Telephone Encounter - Gloria Evans MA - 11/08/2024 2:15 PM EST Per pt. She is requesting number to apex sent to my chart. Gloria Evans MA [facility]-2025 NoteHNO ID: [id number] Author: LESA SOLER APRN.PAOLA Service: ? Author [...] changed her diet a lot Saw the inspector floor sub assembly Made a big difference Was able to develop hunger again and more frequently Still losing weight No more diarrhea Increased movement Going to college - [employer] Walking a lot more Doing EMDR therapy [...] HENT: Head: Normocephalic and atraumatic. Mouth/Throat: Lips: [place]. Eyes: General: Lids are normal. Extraocular Movements: [...] 30.5 - 36.0 g/d (more content not included)...[facility] 11-08-2024 History of Present illness Narrative* Lesa Soler APRN.[facility] - 11/08/2024 1:41 PM EST Subjective Joshua Choudhary is a 29 year old female here today for diabetes follow-up. I reviewed past medical, surgical, social, and family histories today and updated chart. Allergies, chronic medications, and supplements were also reviewed. 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 Mouth/Throat: Lips: [place]. Eyes: General: Lids are normal. Extraocular Movements: [...] Behavior normal. Behavior is cooperative. Latest Ref Rn 09/11/2024 Protein, Total 6.3 - 8.0 g/dL [...] DERMATOLOGY Lesa Soler APRN.CNP [facility] History of Present illness Narrative* Keely Reddy APRN.CNP - 11/03/2024 11:03 AM EST This note was created using [employer]. Subjective Joshua Choudhary is a 29 year [...] history is provided by the patient. No high school foreign language tutor was used. URI She complains of cough. [...] A/B & RSV PCR, ROUTINE Keely Reddy APRN.PAOLA documented in [facility]Hol[facility]02-[facility]-2025 NoteHNO ID: [id number] Author: KEELY REDDY APRN.CNP Service: ? Author Type: Nurse Practitioner Type: [...] history is provided by the patient. No high school foreign language tutor was used. URI She complains of cough. [...] is no distension. Palpatio (more content not included)...[facility]01-29-2025 Instructions* Patient Instructions* Staci Givens RD - 10/30/2024 8:21 AM EST Continuous previous recommendations AND Ensure protein at breakfast Try sliced chicken breast instead of wings, don't eat chicken skin Add in regular exercise, add 30 min 4 days per week documented [facility]Hol[facility]01-29-2025 NoteHNO ID: [id number] Author: STACI GIVENS RD Service: ? Author Type: Registered Dietitian Type: Progress Notes Filed: 10/30/2024 08:26 Note Text: [facility] Nutrition Therapy: Virtual Consult - Re-assessment I have communicated my name and active licensure. The patient?s identity and physical location were verified at the time of this visit. Either the patient or their legal charter representative has been informed of the risks [...] None Likelihood of Adherence: High Referred by: Saturnino FERMIN Billing Type: Re-assess/15 min 2 units SIGNATURE: Staci Givens RD PATIENT NAME: Joshua Choudhary DATE: October 30, 2024 TIME: 8:00 [facility]01-29-2025 History of Present illness Narrative* Staci Givens RD - 10/30/2024 8:01 AM EST [facility] Nutrition Therapy: Virtual Consult - Re-assessment I have communicated my name and active licensure. The patient s identity and physical location wereverified at the time of this visit. Either the patient or their legal charter representative has been informed of the risks [...] None Likelihood of Adherence: High Referred by: Saturnino FERMIN Billing Type: Re-assess/15 min 2 units SIGNATURE: Staci Givens RD PATIENT NAME: Joshua Choudhary DATE: October 30, 2024 TIME: 8:00 AM documented in this encounterHol[facility] Hospital01-29-2025 NoteEducation (NUTRMM) KENRICKJOSHUA Zavala ([id number]) 1995 F Date Time Provider Department 10/30/24 [...] daily. Encounter Status:Closed by STACI GIVENS on 10/30/24[facility]12-[facility] Telephone encounter Note* Telephone Encounter - [...] Patient may choose to take fish oil [id number]. Recheck cholesterol in 6 months. Thank you Lesa Soler APRN.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 [facility]12-19-2024 Miscellaneous Notes* Telephone Encounter - Lesa Soler APRN.PAOLA - 09/19/2024 11:06 PM EST Please notify [...] Patient may choose to take fish oil [id number]. Recheck cholesterol in 6 months. Thank you Lesa Soler APRN.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 documented in this encounterHolzer Hospital12-11-2024 Instructions* Patient Instructions* Staci Givens, CARLOS [...] such as Crystal Light , flavored water, Uyrkb9S , Minute Maid light lemonade, Propel ) 5. Increase exercise to at least 30 min cardio 5 days per week or as tolerated; add in weight resistance exercise, preferably 2-3 days per week Consider a B complex and a vit D supplement documented in this encounterHolzer Hospital12-11-2024 NoteHNO ID: [id number] Author: STACI GIVENS RD Service: ? Author Type: Registered Dietitian Type: Progress Notes Filed: 09/11/2024 14:22 Note Text: [facility] Nutrition Therapy: Virtual Consult - Initial Assessment I have communicated my name and active licensure. The patient?s identity and physical location were verified at the time of this visit. Either the patient or their legal charter representative has been informed of the risks [...] only such as Crystal Light?, flavored water, Saypx3U?, Minute Maid? light lemonade, Propel?) 5. Increase [...] Education Materials Provided: Healthy Lunch/Dinner Plate and 8723-2867 Calorie Partial Liquid Protein Diet READINESS TO LEARN Cognitive ability: Alert and oriented Motivation to learn: Interested Family support: Unable to assess - Family not present Instruction provided to: Patient Patient learns best by: Individual Instruction Factors affecting learning: None Physical limitations affecting learning: None Referred by: Saturnino FERMIN Billing Type: Initial Assess/15 min 2 units SIGNATURE: Staci Givens RD PATIENT NAME: Joshua Choudhary DATE: September 11, 2024 TIME: 1:46 [facility]12-11-2024 History of Present illness Narrative* Staci Givens RD - 09/11/2024 1:43 PM EST [facility] Nutrition Therapy: Virtual Consult - Initial Assessment I have communicated my name and active licensure. The patient s identity and physical location wereverified at the time of this visit. Either the patient or their legal charter representative has been informed of the risks [...] such as Crystal Light , flavored water, Piykl0Q , Minute Maid light lemonade, Propel ) [...] Education Materials Provided: Healthy Lunch/Dinner Plate and 6539-5143 Calorie Partial Liquid Protein Diet READINESS TO LEARN Cognitive ability: Alert and oriented Motivation to learn: Interested Family support: Unable to assess - Family not present Instruction provided to: Patient Patient learns best by: Individual Instruction Factors affecting learning: None Physical limitations affecting learning: None Referred by: Saturnino FERMIN Billing Type: Initial Assess/15 min 2 units SIGNATURE: Staci Givens RD PATIENT NAME: Joshua Choudhary DATE: September 11, 2024 TIME: 1:46 PM documented in this encounterHolzer Hospital12-03-2024 NoteHNO ID: [id number] Author: LESA SOLER APRN.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 Service: ? Author Type: Nurse Practitioner Type: Progress Notes Filed: 09/22/2024 00:58 Note Text: Subjective Joshua Choudhary is a 29 year old female here today for establish care. I reviewed past medical, surgical, social, and family histories today and updated chart. Allergies, chronic medications, and supplements were also reviewed. HPI Moved back to [place] about 1 year ago Needs PCP Diagnosed [...] Insatiable hunger for sugar, craves candy Saw SYSTEMS SPEC last week - Dr Monique Pap test completed Looking in to fertility treatment for 6 years - tried for good 2 years, still not using BC Right fallopian tube removed age 17 Depression - she is seeing counselor and psychiatrist, Dr Marybel Ortiz 419 Counselor Joshua Zazueta at [facility], will be starting EDMR Hx childhood trauma CPSD responses Having official testing for ADHD Panic disorder Has been focusing on mental health this whole past year Hasn't been able to work this past year She was hospitalized - [facility] x 1 week Just started new medication [...] Objective BP 108/62 Pu (more content not included)...[facility] 09-03-2024 History of Present illness Narrative* Lesa Soler, TRINI.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 - 09/03/2024 1:41 PM EST Subjective Joshua Zavala Kenrick is a 29 year old female here today for establish care. I reviewed past medical, surgical, social, and family histories today and updated chart. Allergies, chronic medications, and supplements were also reviewed. HPI Moved back to [place] about 1 year ago Needs PCP Diagnosed [...] Insatiable hunger for sugar, craves candy Saw SYSTEMS SPEC last week - Dr Monique Pap test completed Looking in to fertility treatment for 6 years - tried for good 2 years, still not using BC Right fallopian tube removed age 17 Depression - she is seeing counselor and psychiatrist, Dr Marybel Ortiz 419 Counselor Joshua Zazueta at [facility], will be starting EDMR Hx childhood trauma CPSD responses Having official testing for ADHD Panic disorder Has been focusing on mental health this whole past year Hasn't been able to work this past year She was hospitalized - [facility] x 1 week Just started new medication [...] HENT: Head: Normocephalic and atraumatic. Mouth/Throat: Lips: [place]. Eyes: General: Lids are normal. Extraocular Movements: [...] 787.02, ICD10: R11.0 - LIPASE Lesa Soler APRN.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 documented in this encounterHolzer Hospital11-27-2024 NoteHNO ID: [id number] Author: MARIO MONIQUE MD Service: ? Author [...] skin retraction. Allergies and current medication updated:Yes Public Health Service Officer present EXAM: BP 108/71 Pulse 72 Ht 5' 6 (1.68m) Wt 208 lb (94.3kg) LMP 06/28/2024 BMI 33.59 kg/(m2). GENERAL: In no apparent distress HEENT: Normocephalic, BREAST: soft, non-tender, symmetric, no dominant mass, normal nipple-areolar complex, no lymphadenopathy, and no nipple discharge CHEST: Normal inspiratory effort ABDOMEN: soft, non-tender, and no masses PELVIC: external genitalia normal, normal Bartholin's glands, urethra, Pepeekeo's glands, no vulvar lesions, no cervical lesions, [...] discussed with the Patient or Patient's Authorized Job Honer. As applicable, any other physician, advance practice provider, medical student, or other health professional student that will be observing or involved in the sensitive examination for educational or training purposes was discussed with the Patient or Authorized Job Honer. The Patient or Authorized Job Honer has agreed to proceed with the sensitive examination. (Sensitive examination includes inspection and/or palpation of the breasts, pelvis, prostate and anorectal regions)[facility]11-27-2024 History of Present illness Narrative* Mario [...] skin retraction. Allergies and current medication updated:Yes Public Health Service Officer present EXAM: BP 108/71 Pulse 72 Ht 5' 6 (1.68m) Wt 208 lb (94.3kg) LMP 06/28/2024 BMI 33.59 kg/(m^2). GENERAL: In no apparent distress HEENT: Normocephalic, BREAST: soft, non-tender, symmetric, no dominant mass, normal nipple-areolar complex, no lymphadenopathy, and no nipple discharge CHEST: Normal inspiratory effort ABDOMEN: soft, non-tender, and no masses PELVIC: external genitalia normal, normal Bartholin's glands, urethra, Pepeekeo's glands, no vulvar lesions, no cervical lesions, [...] discussed with the Patient or Patient's Authorized Job Honer. Asapplicable, any other physician, advance practice provider, medical student, or other health professional student that will be observing or involved in the sensitive examination for educational or training purposes was discussed with the Patient or Authorized Job Honer. The Patient or Authorized Job Honer has agreed to proceed with the sensitive examination. (Sensitive examination includes inspection and/or palpation of the breasts, pelvis, prostate and anorectal regions) documented in this encounterHolzer Hospital06-27-2023 Discharge summary Author Andres Loyola [facility] [facility] March 30, 2023 10:03am Note Date/Time March 28, 2023 11:0 1am [facility] Medical Records Department [address] [place] [address] Emergency Department Summary 03/28/23 MR#: [id number] Acct: [id number] Name: JOSHUA CHOUDHARY Rep #:[id number] : 1995 28 From: Ry Hernandez PCP: Care Physician,No Primary Status :REG ER Location: ED ADDENDUM by Dr. Andres Loyola DO on 03/30/23 at 1003 Patient accepted to [facility] under service Dr. Price. Awaiting [...] at 2307 Patient care was transferred to tx at the beginning of my shift, 1400. Patient is awaiting bed assignment at [facility] There was concern because of leukocytosis. The black top roller at [facility] demanded a CAT scan of [...] my shift. [facility] 03/29/23 2307<Electronically signed by Christos Esparza MD> Cosigner Signature (if applicable): cc: No Primary Care Physician ~* Signed ADDENDUM by Dr. Andres Loyola DO on 03/29/23 at 1527 He received callback from psychiatric facility who requested a CT scan abdomen pelvis after discussing with her black top roller due to her leukocytosis. Also requested urinary [...] per nursing. She has been medically cleared. [place] slip was filled out by myself as requested by evaluating facility. Awaiting disposition. 03/29/23 1105<Electronically signed by Andres Pedroza> Cosigner Signature (if applicable): cc: No Primary Care Physician ~* Signed ADDENDUM by Dr. Ry James DO on 03/28/23 at 1640 EKG was ordered to assess for QT prolongation. On my independent interpretation, it shows a normal sinus rhythm with a rate of 63. [place] interval was 162 ms. QRS interval was 90 ms. QTc interval was normal at 425 ms. [place] was normal. There are no acute ST or T wave changes noted. 06/27/23 1640<Electronically signed by Ry James DO> Cosigner [...] nausea and vomiting due to the anxiety. PFSH PFSH Medical History PCOS (polycystic ovarian syndrome) Home [...] 0 current occupational status: employed current occupation: [employer] Smoking Status: Never smoker Smokeless tobacco user: chewing tobacco alcohol intake: current alcohol intake frequency: holidays/special occasions only substance use type: marijuana seatbelt use: always do you feel safe at home: Yes additional social history: [employer] ROS ROS ED Constitutional Constitutional [...] (Auto) 70.3 H Lymph % (Auto) 22.0 Grainger % (Auto) 4.3 Eos % (Auto) 1.8 [...] Color Urine Clarity Urine pH Ur Specific [place] Urine Protein Urine Glucose (UA) Urine Ketones [...] (Auto) Neut % (Auto) Lymph % (Auto) [place] % (Auto) Eos % (Auto) Baso % (Auto) Absolute Neuts (auto) Absolute Lymphs (auto) Nucleated RBC % Sodium Potassium Chloride Carbon Dioxide Anion Gap BUN Creatinine Estim Creat Clear Calc Est GFR (MDRD) Af Amer Est GFR (MDRD) Non-Af BUN/Creatinine Ratio Glucose Calcium Serum , Qual NEGATIVE Urine Color Straw Urine Clarity Clear Urine pH 8.0 Ur Specific [place] 1.015 Urine Protein 30 H Urine Glucose [...] Ethyl Alcohol Management Discussion w/another healthcare provider: well service floor worker/Case management Treatment and Re-Evaluation Narrative: Patient [...] will likely need to be transferred to [facility]. Care of the patient will be turned [...] your Primary Care Provider. Call [facility] ([phone]) or report to the closest Emergency Room. Call 911 if necessary. 03/28/23 1637 <Electronically signed by Ry James DO> Cosigner Signature (if applicable): CC: No Primary Care Physician ~ Signed [facility] Work Phone: Evaluation noteNo assessment information available [facility] Work Phone: Evaluation note* Diagnosis Encounter for gynecological examination (general) (routine) without abnormal findings- Primary Screening for malignant neoplasm of cervix Screening for malignant neoplasm of the cervix PCOS (polycystic ovarian syndrome) Polycystic ovaries Primary female infertility Female infertility of unspecified origin documented [facility]* Diagnosis Dietary counseling- Primary Dietary surveillance and counseling Type 2 diabetes mellitus without complication, without long-term current use of insulin (HCC) PCOS (polycystic ovarian syndrome) Polycystic ovaries documented in this encounter [facility] emergency [facility] note* Diagnosis Type 2 diabetes mellitus without complication, without long-term current use of insulin (HCC)- Primary Chronic diarrhea Diarrhea Early satiety Chronic nausea Nausea alone documented in this encounter [facility] note* Diagnosis Type 2 diabetes mellitus without complication, without long-term current use of insulin (HCC)- Primary Dietary counseling Dietary surveillance and counseling PCOS (polycystic ovarian syndrome) Polycystic ovaries Obesity, Class I, BMI 30-34.9 Obesity, unspecified documented in this encounter [facility] note* Diagnosis URI, acute- Primary Acute upper respiratory infections of unspecified site documented in this encounter [facility] note* Diagnosis Procreative management- Primary Unspecified [...] to other organs [facility] Diagnosis Type 2 diabetes mellitus without complication, without long-term current use of insulin ([facility])- Primary Dyslipidemia Other and unspecified hyperlipidemia Hirsutism documented in this encounter [facility] note* Diagnosis Dyslipidemia- Primary Other and unspecified hyperlipidemia [facility] Additional Instructions Follow-up with your psychiatrist as well. Return to the emergency department with new or worsening symptoms.[facility] Work Phone: Hospital Discharge instructions Additional Instructions test negative. Electrolytes normal. Continue oral fluids for hydration. Take medicines as prescribed. Follow-up with your doctor.[facility] Work Phone: Reason for referral (narrative)No reason for referral [facility] Work Phone: Summary Purpose Family History No Family History Records Found Relationship Condition Age at Onset Recorded Date/T tegan mother Malignant neoplasm Unknown Advance Directives No Advanced Directives Records Found Advance Directive Response Recorded Date/ Time Advance Directives No March 20 11:23am Living Will No March 28, 2023 9:13am Power of Cutter Apprentice Hand No March 28 9:13am Advance Directive Response Recorded Date/ Time Do you have a Healthcare Power of Cutter Apprentice Hand? No February 06, 2025 9:45am Advance Directives No March 20 11:23am Advance Directive Response Recorded Date/ Time Do you have a Healthcare Power of Cutter Apprentice Hand? No February 06, 2025 9:45am Do you have a Healthcare Power of Cutter Apprentice Hand? No March 14, 2025 8:06pm Advance Directives No March 20 11:23am Advance Directive Response Recorded Date/ Time Do you have a Healthcare Power of Cutter Apprentice Hand? No February 06, 2025 9:45am Do you have a Healthcare Power of Cutter Apprentice Hand? No March 30, 2025 10:34am Do you have a Healthcare Power of Cutter Apprentice Hand? No March 14, 2025 8:06pm Advance Directives No March 20 11:23am Chief Complaint and Reason for Visit Chief Complaint PANIC ATTACK Chief Complaint Admit Date panic attack February 06, 2025 9:37am Chief Complaint Admit Date panic attack February 06, 2025 9:37am anxiety March 14, 2025 7:37 pm Chief Complaint Admit Date panic attack February 06, 2025 9:37am anxiety March 14, 2025 7:37 pm anxiety, n/v March 30, 2025 9:50 am Reason for Referral Specialty Diagnoses / Procedures Referred By Contac t Referred To Contact Diagnoses PCOS (polycystic ovarian syndrome) Primary female infertility Procedures CONSULT TO INFERTILITY CLINIC OFFICE/OUTPATIENT [facility] 60 [place] [address] [place] [id number] Referral ID Status Reason Start Date Expiration Date Visits Requested Visits Authorized [id number] Authorized PCP Requested Referral Auto-Generate d Referral 08/28/2025 1 1 Specialty Diagnoses / Procedures Referred By Contact Referred To Contact Gastroenterology / [facility] DEPARTMENT Diagnoses Chronic diarrhea Procedures CONSULT TO GASTROENTEROLOGY OFFICE/OUTPATIENT [facility] 60 MINUTES Lesa Soler APRN.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 [address] [place] [address] [facility] GASTROENTEROLOGY [address] [place] [address] Referral ID Status Reason Start Date Expiration Date Visits Requested Visits Authorized [id number] Authorized PCP Requested Referral 09/03/2024 09/03/2025 1 1 Specialty Diagnoses / Procedures Referred By Contac t Referred To Contact Nutrition / [facility] [place] [facility] Diagnoses Type 2 diabetes mellitus without complication, without long-term current use of insulin (HCC) Procedures CONSULT TO NUTRITION THERAPY MEDICAL NUTRITION ASSMT&IVNTJ INDIV EACH 15 MD Lesa Soler APRN.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 [address] [place] [address] [facility] [address] [place] [address] Referral ID Status Reason Start Date Expiration Date Visits Requested Visits Authorized [id number] Authorized PCP Requested Referral 09/03/2024 09/03/2025 1 4 Additional Source Comments INFORMATION SOURCE (unrecogn ized section and content) DATE CREATED AUTHOR 03/27/2018 [facility] DATE CREATED AUTHOR AUTHOR'S ORGANIZ ATION 11/19/2024 [facility] DATE CREATED AUTHOR AUTHOR'S ORGANIZ ATION 02/15/2025 [facility] DATE CREATED AUTHOR AUTHOR'S ORGANIZ ATION 03/24/2025 [facility] DATE CREATED AUTHOR AUTHOR'S ORGANIZ ATION 03/30/2025 [facility] Care Teams (unrecognized sec tion and content) Team Status: Active Member Role Status Dates Dr. Ry Adler MD Family Provider Active No Primary Care Physician Primary Care Provider Active Team Status: Inactive Member Role Status Dates Dr. Ry James DO Emergency Provider Active No Primary Care Physician Primary Care Provider Active Operations Advisor Relationship Specialty Start Date End Date Ry Adler MD [address] [place] [id number] PCP - General Family Medicine 07/03/18 Operations Advisor Relationship Specialty Start Date End Date Lesa Soler APRN.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 [address] [place] [address] PCP - General Family Medicine 09/03/24 Operations Advisor Relationship Specialty Start Date End Date Lesa Soler APRN.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 [address] [place] [address] PCP - General Family Medicine 09/03/24 Operations Advisor Relationship Specialty Start Date End Date Lesa Soler APRN.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 [address] [place] [address] PCP - General Family Medicine 09/03/24 Operations Advisor Relationship Specialty Start Date End Date Lesa Soler APRN.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 [address] [place] [address] PCP - General Family Medicine 09/03/24 Operations Advisor Relationship Specialty Start Date End Date Lesa Soler APRN.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 [address] [place] [address] PCP - General Family Medicine 09/03/24 Operations Advisor Relationship Specialty Start Date End Date Lesa Soler BAGGAGE PORTER HEAD.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 [address] [place] [address] PCP - General Family Medicine 09/03/24 Operations Advisor Relationship Specialty Start Date End Date Lesa Soler BAGGAGE PORTER HEAD.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 [address] [place] [address] PCP - General Family Medicine 09/03/24 Operations Advisor Relationship Specialty Start Date End Date Lesa Soler, BAGGAGE PORTER HEAD.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 [address], [place] [phone] PCP - [facility] Medicine 09/03/24 Operations Advisor Relationship Specialty Start Date End Date Lesa Soler BAGGAGE PORTER HEAD.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 [address], [place] [id number] PCP - [facility] Family Medicine 09/03/24 Team Status: Active Member Role Status Dates Lesa Soler UPSTREAM BIOMANUFACTURING TECHNICIAN, UPSTREAM BIOMANUFACTURING TECHNICIAN-C Primary Care Provider Active Team Status: Inactive Member Role Status Dates Lesa Soler UPSTREAM BIOMANUFACTURING TECHNICIAN, UPSTREAM BIOMANUFACTURING TECHNICIAN-C Primary Care Provider Active Start: February 06, 2025 End: February 06, 2025 Juan Tapia MD Emergency Provider Active Star t: February 06, 2025 End: February 06, 2025 Operations Advisor Relationship Specialty Start Date End Date Lesa Soler, BAGGAGE PORTER HEAD.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 [address], [place] [id number] PCP - [facility] Medicine 09/03/24 Team Status: Inactive Member Role Status Dates Lesa Soler UPSTREAM BIOMANUFACTURING TECHNICIAN, UPSTREAM BIOMANUFACTURING TECHNICIAN-C Primary Care Provider Active Start: February 06, 2025 End: February 06, 2025 Juan Tapia MD Attending Provider Active Star t: February 06, 2025 End: February 06, 2025 Juna Tapia MD Emergency Provider Active Star t: February 06, 2025 End: February 06, 2025 Team Status: Inactive Member Role Status Dates Lesa Soler UPSTREAM BIOMANUFACTURING TECHNICIAN, UPSTREAM BIOMANUFACTURING TECHNICIAN-C Primary Care Provider Active Start: March 14, 2025 End: March 14, 2025 Dr. Andres Loyola DO Emergency Provider Active Start : March 14, 2025 End: March 14, 2025 Team Status: Active Member Role/Relationship Status Dates Lesa Soler UPSTREAM BIOMANUFACTURING TECHNICIAN, UPSTREAM BIOMANUFACTURING TECHNICIAN-C Primary Care Provider Active Team Status: Inactive Member Role/Relationship Status Dates Lesa Soler UPSTREAM BIOMANUFACTURING TECHNICIAN, UPSTREAM BIOMANUFACTURING TECHNICIAN-C Primary Care Provider Active Start: February 06, 2025 End: February 06, 2025 Juan Tapia MD Attending Provider Active Star t: February 06, 2025 End: February 06, 2025 Juan Tapia MD Emergency Provider Active Star t: February 06, 2025 End: February 06, 2025 Team Status: Inactive Member Role/Relationship Status Dates Lesa Soler NP, UPSTREAM BIOMANUFACTURING TECHNICIAN-C Primary Care Provider Active Start: March 14, 2025 End: March 14, 2025 Dr. Andres Loyola , Attending Provider Active Start : March 14, 2025 End: March 14, 2025 Dr. Andres Loyola , DO Emergency Provider Active Start : March 14, 2025 End: March 14, 2025 Team Status: Inactive Member Role/Relationship Status Dates Lesa Soler NP, UPSTREAM BIOMANUFACTURING TECHNICIAN-C Primary Care Provider Active Start: March 30, 2025 End: March 30, 2025 Dr. Ry James , DO Emergency Provider Active Start: March 30, 2025 End: March 30, 2025 Goals (unrecognized section and content) Goals [...] or prosecute any alcohol or drug abuse patient.[facility] the event this information is protected by the Federal Confidentiality of Alcohol and Drug Abuse Patient Records regulations: The Federal rules restrict any use of the information to criminally investigate or prosecute any alcohol or drug abuse patient.[facility] the event this information is protected by the Federal Confidentiality of Alcohol and Drug Abuse Patient Records regulations: The Federal rules restrict any use of the information to criminally investigate or prosecute any alcohol or drug abuse patient.[facility] the event this information is protected by the Federal Confidentiality of Alcohol and Drug Abuse Patient Records regulations: The Federal rules restrict any use of the information to criminally investigate or prosecute any alcohol or drug abuse patient.[facility] the event this information is protected by the Federal Confidentiality of Alcohol and Drug Abuse Patient Records regulations: The Federal rules restrict any use of the information to criminally investigate or prosecute any alcohol or drug abuse patient.[facility] the event this information is protected by the Federal Confidentiality of Alcohol and Drug Abuse Patient Records regulations: The Federal rules restrict any use of the information to criminally investigate or prosecute any alcohol or drug abuse patient.[facility] the event this information is protected by the Federal Confidentiality of Alcohol and Drug Abuse Patient Records regulations: The Federal rules restrict any use of the information to criminally investigate or prosecute any alcohol or drug abuse patient.[facility] the event this information is protected by the Federal Confidentiality of Alcohol and Drug Abuse Patient Records regulations: The Federal rules restrict any use of the information to criminally investigate or prosecute any alcohol or drug abuse patient.[facility] the event this information is protected by the Federal Confidentiality of Alcohol and Drug Abuse Patient Records regulations: The Federal rules restrict any use of the information to criminally investigate or prosecute any alcohol or drug abuse patient.[facility] the event this information is protected by the Federal Confidentiality of Alcohol and Drug Abuse Patient Records regulations: The Federal rules restrict any use of the information to criminally investigate or prosecute any alcohol or drug abuse patient.[facility] the event this information is protected by the Federal Confidentiality of Alcohol and Drug Abuse Patient Records regulations: The Federal rules restrict any use of the information to criminally investigate or prosecute any alcohol or drug abuse patient.[facility] the event this information is protected by the Federal Confidentiality of Alcohol and Drug Abuse Patient Records regulations: The Federal rules restrict any use of the information to criminally investigate or prosecute any alcohol or drug abuse patient.[facility] the event this information is protected by the Federal Confidentiality of Alcohol and Drug Abuse Patient Records regulations: The Federal rules restrict any use of the information to criminally investigate or prosecute any alcohol or drug abuse patient.[facility] the event this information is protected by the Federal Confidentiality of Alcohol and Drug Abuse Patient Records regulations: The Federal rules restrict any use of the information to criminally investigate or prosecute any alcohol or drug abuse patient.[facility] Reason for Visit (unrecogniz ed section [...] THERAPY MEDICAL NUTRITION ASSMT&IVNTJ INDIV EACH 15 MD Lesa Soler, TRINI.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 [address] [place] [address] [facility] [place] [address] [place] [address] Referral ID Status Reason Start Date Expiration Date Visits Requested Visits Authorized [id number] Authorized PCP Requested Referral 09/03/2024 09/03/2025 1 4 Reason Comments Results labs Reason Comments Establish Care No concerns on depre ssion meds, does not remember the name of medication Sees psychiatrist Dr. Tamia No.for this medication. [facility] Reason Comments Reassessment Patient Education Reason Comments Head Congestion ST, [place], cough, sinus congestion x2 days Reason Onset Date Comments Results 11/12/2024 Reason Comments Infertility Specialty Diagnoses / Procedures Referred By Contac t Referred To Contact Diagnoses PCOS (polycystic ovarian syndrome) Primary female infertility Procedures CONSULT TO INFERTILITY CLINIC OFFICE/OUTPATIENT [facility] [address] [place] [address] [place] [address] Phone: tel: Referral ID Status Reason Start Date Expiration Date V isits Requested Visits Authorized [id number] Closed PCP Requested Referral Auto-Generated Referral 08/28/2024 08/28/2025 1 1 Reason Comments Diabetes Patient is going to make appointment to see eye doctor Reason Onset Date Comments ED Follow-up 02/06/2025 [facility] 02/08/2025 Reason Onset Date Comments ED Follow-up 03/14/2025 [facility] 2024 Reason Comments Lab Orders FOR RECORDS [...] BE BASED ON THE PRIMARY CLINICAL RECORDS. [facility] [employer] [facility]. provides no warranty or guarantee of the accuracy or completeness of information in this document.
[2025-03-30] MEDS: Famotidine 200 MG/20 ML MDV 20 MG in 0.9% Normal Saline (Pres. free 8 ML 300 MG IV (18:58)
[2025-03-30] MEDS: Lorazepam 2 MG/ML WCH Syringe 0.5 MG IV (18:58)
[2025-03-30] MEDS: Ondansetron 4 MG/2 ML Vial IV (18:58)
[2025-03-30] MEDS: Capsaicin 0.025% 1 APPLIC Tube TOPICAL (19:05)
--- NOTE | 2025-03-30 19:59 | CM.ED ---
Social Work Date of referral: 03/30/25 Reason for referral: Support Referred by: Social Work Identification Snowboarder attempted to meet with patient to provide support however upon entry, all lights in the rom were turned off and patient was curled up under the hospital blanket and was sleeping. Due to the amount of distress patient has been in, social security benefits interviewer opted not to wake patient. Leslee Burrell, ENDLESS BELT FINISHER, CANAL BOAT CAPTAIN
[2025-03-30 20:15] VITALS: BP 138/88
[2025-03-30] MEDS: proCHLORPERazine 10 MG/2 ML Vial IV (20:38)
[2025-03-30] MEDS: DiphenhydrAMINE 50 MG/ML Syringe 25 MG IV (20:38)
[2025-03-30 22:03] VITALS: BP 112/62; PULSE 88; RESP 15; TEMP 36.6; O2SAT 99
== END 2025-03-30 22:03 | disposition home or self-care (01) ==
PROVIDERS: Emergency Provider Emergency Medicine; PCP Nurse Practitioner Family; Visit Provider Emergency Medicine
DX: F41.9 Anxiety disorder, unspecified (principal); R11.15 Cyclical vomiting syndrome unrelated to migraine; F17.290 Nicotine dependence, other tobacco product, uncomplicated; F17.220 Nicotine dependence, chewing tobacco, uncomplicated; R06.02 Shortness of breath
CPT/HCPCS: 96374; 96375; 99282; A4216; J2405

== ENCOUNTER 2025-04-04 09:22 | Emergency (ER) | payer SELFPAY ==
[2025-04-04 09:22] VITALS: BP 126/76; PULSE 73; RESP 16; TEMP 37.1; O2SAT 100; BMI 28.7
--- NOTE | 2025-04-04 10:38 | EX.ED.DYSGE1 ---
HPI History of Present Illness Chief Complaint: Anxiety Narrative Narrative: Patient is a 30-year-old female with past medical history of anxiety, cyclical vomiting syndrome, PCOS, cannabis use disorder who presents to the emergency department chief complaint of panic attack. Patient states that this morning she woke up feeling that she had a panic attack and states that she will get in these vicious cycles. She states that she has been on a lot of stress recently and she is going through divorce. States that she does not have insurance and states that she is out of her medications that she uses for anxiety. She states that she was unsure what to do therefore she came here for further evaluation and management. [facility] Medical History Anxiety Anxiety disorder Cannabis use disorder Cyclic vomiting syndrome PCOS (polycystic ovarian syndrome) Home Medications ?Medication ?Instructions ?Recorded ?Last Taken ?Type propranolol 80 mg capsule,24 20 mg PO BID PRN anxiety 02/23/24 Unknown History hr,extended release hydroxyzine pamoate 25 mg capsule 25 mg PO TID PRN PRN Anxiety #10 03/30/25 Unknown Rx CAPSULES ondansetron 4 mg disintegrating 4 mg PO Q8H PRN PRN Nausea #10 tabs 03/30/25 Unknown Rx tablet venlafaxine 150 mg 150 mg PO DAILY 03/30/25 Unknown History capsule,extended release 24 hr (Effexor XR) cariprazine 1.5 mg capsule 1.5 mg PO DAILY 04/04/25 Unknown History (Vraylar) Allergy/AdvReac Type Severity Reaction Status Date / Time No Known Allergies Allergy Verified 04/04/25 09:22 Family History Mother Cancer skin Surgical History right salpingectomy FH: cholecystectomy Social History housing: apartment number of children: 0 current occupational status: employed current occupation: [employer] Smoking Status: Current every day smoker tobacco type: e-cigarettes Smokeless tobacco user: chewing tobacco alcohol intake: current alcohol intake frequency: holidays/special occasions only substance use type: marijuana seatbelt use: always do you feel safe at home: Yes additional social history: [employer] ROS ROS ED ROS Narrative Constitutional: Denies fevers, chills, headaches Cardiovascular: Denies chest pain Respiratory: Denies shortness of breath Abdomen: Complaint of nausea from her panic attack and vomiting she states that this occurs when she gets these events denies diarrhea : Denies urinary symptoms Neurological: Denies numbness, wheeze, tingling Musculoskeletal: Denies back pain Skin: Denies any rashes or lesions EXAM Physical Exam Narrative Exam Narrative: General: Patient lying in bed rest comfortably do not appear to be acute distress Head: Atraumatic, normocephalic Eyes: PERRL bilaterally, EOMI blood, no conjunctival injection noted Neck: Soft, supple, trachea midline Cardiovascular: Regular in rhythm no murmurs gallops rubs noted Respiratory: Clear to auscultation bilaterally Extremities: +5/5 strength noted in the bilateral upper and lower extremities Neurological: Patient following commands and that she was at [facility] year is 2024 Skin: Warm, dry, tact no rashes lesions noted Const Vital Signs: 04/04/25 09:22 Temperature 98.7 F Temperature Source Oral Pulse Rate 73 Respiratory Rate 16 Blood Pressure 126/76 H Blood Pressure Mean 92 Pulse Ox 100 Oxygen Delivery Method Room Air MDM MDM MDM Narrative Medical decision making narrative: Patient is a 30-year-old female who presented to the emergency department the chief complaint of pink tach. On the differential diagnose includes but not limited to anxiety, panic attack, depression. After discussion with the patient we will give her hydroxyzine here and observe her. Social work is not here today on April 04, 2025 secondary to the holiday Patient feels much improved and would like to go home at this point in time. She was advised to follow-up with a doctor which she was referred to. She is encouraged return with worsening symptoms or other concerns. She states that she cannot afford medications at this point in time therefore advised her to follow-up with this clinic for financial assistance with medications. She is agreeable spinal course concerns answered she is discharged home in stable condition. Discharge Plan Triage Chief Complaint: Anxiety ED Provider: Warren Cade Dx/Rx/DC Orders Clinical Impression: Anxiety disorder, Panic attack Prescriptions: No Action venlafaxine [Effexor XR] 150 mg capsule,extended release 24hr 150 mg PO DAILY ondansetron 4 mg tablet,disintegrating 4 mg PO Q8H PRN PRN (Reason: Nausea) Qty: 10 0RF hydroxyzine pamoate 25 mg capsule 25 mg PO TID PRN PRN (Reason: Anxiety) Qty: 10 0RF Vraylar 1.5 mg capsule 1.5 mg PO DAILY propranolol 80 mg capsule,extended release 24 hr 20 mg PO BID PRN (Reason: anxiety) Rx Instructions: half a tablet to 2 tablets up to twice a day Primary Care Provider: Joann Matamoros NP Referrals: Joann Matamoros NP, BUSINESS SERVICES MANAGER-C [Primary Care Provider] - Keely Becker Katlyn BUSINESS SERVICES MANAGER-C [[facility]] - Activity Restrictions/Additional Instructions: Follow-up with the doctor you referred to. Return with worsening symptoms or any other concerns. Print Language: Serbian Disposition Disposition: Home, Self Care
--- OUTSIDE RECORDS SUMMARY | 2025-04-04 10:51 | XMS RPT_ITS | CCD ---
Author Organization [facility] Care Team Providers Care Patent Attorney Name Role Phone ANA Marshall RN, Joshua Jang Unavailable Unavailfranchesca Marshall RN RN, Joshua Jang Unavailable UnavailBASIM Denis Unavailable Unavailable BASIM PRINCE Unavailable Unavailable Veena BATISTA, Collette Hansen Unavailable [phone] Ry Adler MD Primary Care Provider Saturnino POWDER LOADER.Lesa GUEVARA Primary Care Provider Saturnino CARPENTRY TEACHER-C, Lesa Primary Care Provider Juan Tapia MD Emergency Provider NO, PHYSICIAN Primary Care Unavailable [facility] CRISOSTOMO Attending Unavailable Juan Tapia MD Attending Provider [phone] Andres Loyola DO Emergency Provider Dr. Andres Loyola DO Attending Provider [phone] Ry James DO Emergency Provider Lesa Soler Primary Care Unavailable Andres Loyola Attending Unavailable Saturnino, Lesa Primary Care Unavailable Ry James Attending Unavailable Care Physician, No Primary Primary Care Unava ilable Ungur, Remus Attending Unavailable Triisadora, Lesa Primary Care Unavailable Ry James Attending Unavailable Esparza, Christos Attending Unavailable Trill, Lesa Primary Care Unavailable Trill, Lesa Primary Care Unavailable Juan Tapia Attending Unavailable LESA SOLER Attending Unavailable TRILL, LESA C Primary Care Unavailable TRILL LESA C Attending Unavailable TRILL LESA C Referring Unavailable TRILL, LESA C Primary Care Unavailable GEMA SMALL Attending Unavailable MARIO MONIQUE Referring Unavailable LESA SOLER Primary Care Unavailable LESA SOLER Primary Care Unavailable STACI GIVENS Attending Unavailable LESA SOLER Primary Care Unavailable LESA SOLER Referring Unavailable LESA SOLER Primary Care Unavailable MARIO MONIQUE Attending Unavailable ADLERLIONJOANN Jang Primary Care Unavailable STACI GIVENS Attending Unavailable LESA SOLER Referring Unavailable LESA SOLER Primary Care Unavailable LESA SOLER Referring Unavailable LESA SOLER Primary Care Unavailable Medications Current Medications Medication Drug Class(es) Dates Sig (Normalized) Sig (Original) hydrOXYzine pamoate 25 mg oral capsule (4 sources) Antihistamine Start: 03-14-2025 End: 03-30-2025 take 1 capsule by mouth three times daily as needed for anxiety Hydroxyzine Pamoate 25 mg capsule Active 25 mg PO 3 TIMES DAILY NEEDED as needed for Anxiety 10 0 March 30, 2025 9:21pm 24 hr propranolol hydrochloride 80 mg extended release oral capsule (4 sources) beta-Adrenergic Vasiliy Start: 02-23-2024 Propranolol 80 mg capsule,extended release 24 hr Active 20 mg PO TWICE A DAY as needed for anxiety February 23, 2024 12:00am half a tablet to 2 tablets up to twice a day 24 hr venlafaxine 150 mg extended release oral capsule (14 sources) Serotonin and Norepinephrine Reuptake Inhibitor Start: [...] / oxyCODONE hydrochloride 5 mg oral tablet (4 sources) Opioid Agonist Start: 02-23-2024 End: 03-30-2025 [...] tablet by mouth twice daily DOXYCYCLINE HYCLATE [id number] Collette Curiel MD DULoxetine 30 mg delayed release oral capsule (4 sources) Serotonin and Norepinephrine Reuptake Inhibitor Start: 02-23-2024 End: 03-30-2025 Duloxetine (Cymbalta) 30 mg capsule,delayed release(DR/EC) Discontinued 30 mg PO DAILY February 23, 2024 12:00am March 30, 2025 10:36am one capsule for 14 days and then increase to 2capsule Norgestrel-Ethinyl Estradiol (7 sources) Estrogen Start: 09-23-2017 End: 09-26-2019 Norgestrel-Ethiny l Estradiol 1 EACH tablet Discontinued 1 {tbl} PO DAILY September 23, 2017 1:00am September 26, 2019 1:27pm Start: 09-23-2017 End: 09-26-2019 take 1 tablet by mouth once daily Norgestrel-Ethinyl Estradiol Discontinued 1 TABLET PO DAILY September 23, 2017 1:00am September 26, 2019 1:27pm Start: 07-13-2017 End: 09-03-2024 CRYSELLE 0.3-30 mg-mcg per julia ramirez 07/13/2017 09/03/2024 Discontinued Start: 07-13-2017 CRYSELLE 0.3-3 0 mg-mcg per tablet 07/13/2017 Active famotidine 20 mg oral tablet (5 sources) Histamine-2 Receptor Antagonist Start: 02-20-2017 End: [...] lansoprazole 30 mg delayed release oral capsule (4 sources) Proton Pump Inhibitor Start: 07-15-2024 End: 03-30-2025 take 1 capsule by mouth once daily Lansoprazole (Prevacid) 30 mg capsule,delayed release(DR/EC) Discontinued 30 mg PO DAILY July 15, 2024 12:00am March 30, 2025 10:35am metFORMIN hydrochloride 1000 mg oral tablet (5 sources) Biguanide Start: 03-28-2023 End: 03-30-2025 take 1 tablet by mouth twice daily Metformin 1,000 mg Tablet Discontinued 1000 mg PO TWICE A DAY March 28, 2023 12:00am March 30, 2025 10:35am metroNIDAZOLE 500 mg oral tablet (3 sources) Nitroimidazole Antimicrobial take 1 tablet by mouth three times daily FLAGYL 500 MG TABS One tablet by mouth three times daily METRONIDAZOLE [id number] Collette Curiel MD Drug Treatment Unknown - unknown (1 source) No information available. ondansetron 4 mg disintegrating oral tablet (16 sources) Serotonin-3 Receptor Antagonist Start: 07-15-2024 End: 03-30-2025 take 1 tablet by mouth every eight hours as needed for nausea Ondansetron 4 mg tablet,disintegrat ing Discontinued 4 mg PO EVERY 8 HOURS NEEDED as needed for Nausea 10 March 14, 2025 12:00am March 30, 2025 10:35am Start: 02-28-2017 take 1 tablet by jluis th three times daily ZOFRAN 4 MG TABS One tablet by mouth three times daily ONDANSETRON HCL [id number] Collette Curiel MD Start: 02-28-2017 take 1 tablet by jluis th three times daily ZOFRAN 4 MG TABS One tablet by mouth three times daily ONDANSETRON HCL [id number] Collette Curiel MD VIT/IRON FUM/FOLIC AC ( 10/02 ORAL) (2 sources) End: 09-03-2024 VIT/IRON FUM/FOLIC AC ( 10/02 ORAL) Take by mouth. 09/03/2024 Discontinued VIT/IRO N FUM/FOLIC AC ( 10/02 ORAL) Take by mouth. Active progesterone 200 mg oral capsule (4 sources) Progesterone Start: 02-23-2024 End: 03-30-2025 take 1 capsule by mouth at bedtime Progesterone Micronized 200 mg capsule Discontinued 200 mg PO AT BEDTIME February 23, 2024 12:00am March 30, 2025 10:35am promethazine hydrochloride 25 mg oral tablet (4 sources) Phenothiazine Start: 02-23-2024 End: 03-30-2025 take [...] tablet by mouth four times daily SUCRALFATE [id number] Collette Curiel MD take 1 tablet by mouth four time s daily CARAFATE 1 GM TABS One tablet by mouth four times daily SUCRALFATE [id number] Collette Curiel MD Problems Active Problems Problem Classification Problem Date Documented Date Episodic/Chronic Administrative/socia l admission (7 sources) Patient encounter status; Translations: [Dietary counseling and surveillance] 09-11-2024 Episodic Anxiety disorders (20 sources) Anxiety; Translations: [Anxiety disorder, unspecified] Onset: 09-22-2024 03-28-2023 Chronic Diabetes mellitus without complication (20 sources) Type 2 diabetes mellitus without complication; Translations: [Type 2 diabetes mellitus without complications] Onset: 09-03-2024 09-11-2024 Chronic Diseases of white blood cells (4 sources) Leukocytosis; Translations: [Elevated white blood cell count, unspecified] 07-23-2024 Chronic Disorders of lipid metabolism (12 sources) Dyslipidemia; Translations: [Hyperlipidemia, unspecified] Onset: 11-08-2024 11-08-2024 Chronic Esophageal disorders (4 sources) Gastroesophageal reflux disease; Translations: [Gastro-esophageal reflux disease without esophagitis] Onset: 02-28-2017 02-28-2017 Chronic Female infertility (3 sources) Primary female infertility; Translations: [Female infertility, unspecified] Onset: 11-18-2024 08-28-2024 Chronic Fluid and electrolyte disorders (8 sources) Dehydration; Translations: [Dehydration] 10-08-2024 Episodic Menstrual disorders (19 sources) Secondary amenorrhea; Translations: [Secondary amenorrhea] Onset: 09-22-2024 09-26-2019 Chronic Other disorders of stomach and duodenum (4 sources) Cyclical vomiting syndrome; Translations: [Cyclical vomiting [...] injuries and conditions due to external causes (5 sources) Closed injury of head; Translations: [Unspecified injury of head, initial encounter] 01-10-2019 Episodic Other nutritional; endocrine; and metabolic disorders (3 sources) Overweight; Translations: [Overweight] Onset: 02-28-2017 02-28-2017 Chronic Other nutritional; endocrine; and metabolic disorders (1 source) Obese class I; Translations: [Obesity, Class I, BMI 30-34.9] 10-30-2024 Chronic Other nutritional; endocrine; and metabolic disorders (4 sources) Body mass index 30+ - obesity; [...] other genital organ(s)] 11-18-2024 Episodic Substance-related disorders (4 sources) Cannabis use, unspecified, uncomplicated; Translations: [Cannabis use disorder] 09-30-2024 Episodic Past or Other Problems Problem Classification Problem Date Documented Date Episodic/Chronic Abdominal pain (20 sources) Right upper quadrant pain; Translations: [Epigastric pain] Onset: 05-16-2017 05-16-2017 Episodic Biliary tract disease (16 sources) Calculus of gallbladder without cholecystitis without obstruction; Translations: [Gallstone] Onset: 08-28-2017 08-28-2017 Episodic Inflammatory diseases of female pelvic organs (3 sources) Female pelvic inflammatory disease; Translations: [Female pelvic inflammatory disease, unspecified] Onset: 02-28-2017 03-01-2017 Episodic Nausea and vomiting (18 sources) Nausea; Translations: [Nausea] Onset: 09-03-2024 09-03-2024 Episodic Noninfectious gastroenteritis (14 sources) Chronic diarrhea; Translations: [Noninfective gastroenteritis and colitis, unspecified] Onset: 09-03-2024 09-03-2024 Episodic Other skin disorders (7 sources) Hirsutism; Translations: [Hirsutism] Onset: 11-27-2024 11-27-2024 Episodic Other skin disorders (1 source) Hirsutism; Translations: [Hirsutism] Onset: 11-08-2024 Episodic Residual codes; unclassified (2 sources) Early satiety; Translations: [Early satiety] Onset: 09-03-2024 Episodic Suicide and intentional self-inflicted injury (17 sources) Suicidal thoughts; Translations: [Suicidal ideations] Onset: 09-22-2024 03-28-2023 Episodic Unclassified (5 sources) right salpingectomy 04-23-2022 Unclassified (5 sources) Contusion of left shoulder, initial encounter 01-10-2019 Unclassified (2 sources) Patient encounter status 11-18-2024 Results Test Name Value Interpretation Reference Range Facility CBC panel Auto (Bld)on 04-02 Erythrocyte distribution width (RBC) [Ratio] 14.0 % Normal 11.5-15.0 [facility] Comment on above: Order Comment: Speci men Type: BLOOD SPECIMEN Ordering Facility: [facility] Address: [address] [place] [address] Performed By: #### 5 8410-2 #### [facility] CLIA [id number] [address] [place] [address] [place] Hematocrit (Bld) [Volume fraction] 38.4 % Normal 36.0-46.0 [facility] Comment on above: Order Comment: Speci men Type: BLOOD SPECIMEN Ordering Facility: [facility] Address: [address] [place] [address] Performed By: #### 5 8410-2 #### [facility] CLIA [id number] [address] [place] [address] [place] Hemoglobin (Bld) [Mass/Vol] 12.4 g/dL Normal 11.5-15.5 [facility] Comment on above: Order Comment: Speci men Type: BLOOD SPECIMEN Ordering Facility: [facility] Address: [address] [place] [address] Performed By: #### 5 8410-2 #### [facility] CLIA [id number] [address] [place] [address] [place] MCH (RBC) [Entitic mass] 27.9 pg Normal 26.0-34.0 [facility] Comment on above: Order Comment: Speci men Type: BLOOD SPECIMEN Ordering Facility: [facility] Address: [address] [place] [address] Performed By: #### 5 8410-2 #### [facility] CLIA [id number] [address] [place] [address] [place] MCHC (RBC) [Mass/Vol] 32.3 g/dL Normal 30.5-36.0 [facility] Comment on above: Order Comment: Speci men Type: BLOOD SPECIMEN Ordering Facility: [facility] Address: [address] [place] [address] Performed By: #### 5 8410-2 #### [facility] CLIA [id number] [address] [place] [address] [place] MCV (RBC) [Entitic vol] 86.3 fL Normal 80.0-100.0 [facility] Comment on above: Order Comment: Speci men Type: BLOOD SPECIMEN Ordering Facility: [facility] Address: [address] [place] [address] Performed By: #### 5 8410-2 #### [facility] CLIA [id number] [address] [place] [address] [place] Nucleated RBC (Bld) [#/Vol] 10*3/uL Normal <0.01 [facility] Comment on above: Order Comment: Speci men Type: BLOOD SPECIMEN Ordering Facility: [facility] Address: [address] [place] [address] Performed By: #### 5 8410-2 #### [facility] CLIA [id number] [address] [place] [address] [place] Platelet mean volume (Bld) [Entitic vol] 12.2 fL Normal 9.0-12.7 [facility] Comment on above: Order Comment: Speci men Type: BLOOD SPECIMEN Ordering Facility: [facility] Address: [address] [place] [address] Performed By: #### 5 8410-2 #### [facility] CLIA [id number] [address] [place] [address] [place] Platelets (Bld) [#/Vol] 241 10*3/uL Normal 150-400 [facility] Comment on above: Order Comment: Speci men Type: BLOOD SPECIMEN Ordering Facility: [facility] Address: [address] [place] [address] Performed By: #### 5 8410-2 #### [facility] CLIA [id number] [address] [place] [address] [place] RBC (Bld) [#/Vol] 4.45 10*6/uL Normal 3.90-5.20 [facility] Comment on above: Order Comment: Speci men Type: BLOOD SPECIMEN Ordering Facility: [facility] Address: [address] [place] [address] Performed By: #### 5 8410-2 #### [facility] CLIA [id number] [address] [place] [address] [place] WBC (Bld) [#/Vol] 9.88 10*3/uL Normal 3.70-11.00 [facility] Comment on above: Order Comment: Speci men Type: BLOOD SPECIMEN Ordering Facility: [facility] Address: [address] [place] [address] Performed By: #### 5 8410-2 #### [facility] CLIA [id number] [address] [place] [address] [place] Comprehensive metabolic 2000 panelon 04-02-2025 Albumin [Mass/Vol] 4.0 g/dL Normal 3.9-4.9 [facility] Comment on above: Order Comment: Speci men Type: BLOOD SPECIMEN Ordering Facility: [facility] Address: [address] [place] [address] Performed By: #### 5 8410-2 #### [facility] CLIA [id number] [address] [place] [address] [place] ALP [Catalytic activity/Vol] 55 U/L Normal 34-123 [facility] Comment on above: Order Comment: Speci men Type: BLOOD SPECIMEN Ordering Facility: [facility] Address: [address] [id number] Performed By: #### 5 8410-2 #### [facility] CLIA [id number] [address] [place] [address] [place] ALT [Catalytic activity/Vol] 19 U/L Normal 7-38 [facility] Comment on above: Order Comment: Speci men Type: BLOOD SPECIMEN Ordering Facility: [facility] Address: [address] [place] [address] Performed By: #### 5 8410-2 #### [facility] CLIA [id number] [address] [place] [address] [place] Anion gap [Moles/Vol] 11 mmol/L Normal 8-15 [facility] Comment on above: Order Comment: Speci men Type: BLOOD SPECIMEN Ordering Facility: [facility] Address: [address] [place] [address] Performed By: #### 5 8410-2 #### [facility] CLIA [id number] [address] [place] [address] [place] AST [Catalytic activity/Vol] 20 U/L Normal 13-35 [facility] Comment on above: Order Comment: Speci men Type: BLOOD SPECIMEN Ordering Facility: [facility] Address: [address] [id number] Performed By: #### 5 8410-2 #### [facility] CLIA [id number] [address] [place], [place] [address] [place] Bilirubin [Mass/Vol] 0.3 mg/dL Normal 0.2-1.3 [facility] Comment on above: Order Comment: Speci men Type: BLOOD SPECIMEN Ordering Facility: [facility] Address: [address] [id number] Performed By: #### 5 8410-2 #### [facility] CLIA [id number] [address] [place] [address] [place] Calcium [Mass/Vol] 10.2 mg/dL Normal 8.5-10.2 [facility] Comment on above: Order Comment: Speci men Type: BLOOD SPECIMEN Ordering Facility: [facility] Address: [address] [place] [address] Performed By: #### 5 8410-2 #### [facility] CLIA [id number] [address] [place] [address] [place] Chloride [Moles/Vol] 105 mmol/L Normal 98-107 [facility] Comment on above: Order Comment: Speci men Type: BLOOD SPECIMEN Ordering Facility: [facility] Address: [address] [place] [address] Performed By: #### 5 8410-2 #### [facility] CLIA [id number] [address] [place] [address] [place] CO2 [Moles/Vol] 23 mmol/L Normal 22-30 [facility] Comment on above: Order Comment: Speci men Type: BLOOD SPECIMEN Ordering Facility: [facility] Address: [address] [place] [address] Performed By: #### 5 8410-2 #### [facility] CLIA [id number] [address] [place] [address] [place] Creatinine [Mass/Vol] 0.77 mg/dL Normal 0.58-0.96 [facility] Comment on above: Order Comment: Speci men Type: BLOOD SPECIMEN Ordering Facility: [facility] Address: [address] [place] [address] Performed By: #### 5 8410-2 #### [facility] CLIA [id number] [address] [place] [address] [place] Creatinine and Glomerular filtration rate.predicted panel (S/P/Bld) 105 mL/min/1.73m??? Normal >=60 [facility] Comment on above: Order Comment: Speci men Type: BLOOD SPECIMEN Ordering Facility: [facility] Address: [address] [place] [address] Result Comment: Ely mated Glomerular Filtration Rate [...] accurately reflect actual GFR. Performed By: #### 5 8410-2 #### [facility] CLIA [id number] [address] [place] [address] [place] Glucose [Mass/Vol] 94 mg/dL Normal 74-99 [facility] Comment on above: Order Comment: Yelena collins Type: BLOOD SPECIMEN Ordering Facility: [facility] Address: [address] [place] [address] Result Comment: The [place] Diabetes [employer] (ADA) [...] Diabetes Care. 2016.39(Suppl 1). Performed By: #### 5 8410-2 #### [facility] CLIA [id number] [address] [place] [address] [place] Potassium [Moles/Vol] 4.0 mmol/L Normal 3.7-5.1 [facility] Comment on above: Order Comment: Yelena collins Type: BLOOD SPECIMEN Ordering Facility: [facility] Address: [address] [place] [address] Performed By: #### 5 8410-2 #### [facility] CLIA [id number] [address] [place] [address] [place] Protein [Mass/Vol] 6.6 g/dL Normal 6.3-8.0 [facility] Comment on above: Order Comment: Speci men Type: BLOOD SPECIMEN Ordering Facility: [facility] Address: [address] [place] [address] Performed By: #### 5 8410-2 #### [facility] CLIA [id number] [address] [place] [address] [place] Sodium [Moles/Vol] 139 mmol/L Normal 136-144 [facility] Comment on above: Order Comment: Speci men Type: BLOOD SPECIMEN Ordering Facility: [facility] Address: [address] [place] [address] Performed By: #### 5 8410-2 #### [facility] CLIA [id number] [address] [place] [address] [place] Urea nitrogen [Mass/Vol] 10 mg/dL Normal 7-21 [facility] Comment on above: Order Comment: Speci men Type: BLOOD SPECIMEN Ordering Facility: [facility] Address: [address] [place] [address] Performed By: #### 5 8410-2 #### [facility] CLIA [id number] [address] [place] [address] [place] Lipid 1996 panelon 5 Cholesterol [Mass/Vol] 156 mg/dL Normal <200 [facility] Comment on above: Order Comment: Speci men Type: BLOOD SPECIMEN Ordering Facility: [facility] Address: [address] [place] [address] Result Comment: <200 mg/dL, Desirable 200-239 mg/dL, Borderline high >239 mg/dL, High Performed By: #### 5 8410-2 #### [facility] CLIA [id number] [address] [place] [address] [place] Cholesterol in HDL [Mass/Vol] 34 mg/dL Low >39 [facility] Comment on above: Order Comment: Yelena dennis Type: BLOOD SPECIMEN Ordering Facility: [facility] Address: [address] [place] [address] Result Comment: 40-5 9 mg/dL, Acceptable >59 mg/dL, High: Negative risk factor for coronary heart disease <40 mg/dL, Low: Positive risk factor for coronary heart disease Performed By: #### 5 8410-2 #### [facility] CLIA [id number] [address] [place] [address] OF [facility] Cholesterol in LDL [Mass/Vol] 102 mg/dL High <100 [facility] Comment on above: Order Comment: Yelena dennis Type: BLOOD SPECIMEN Ordering Facility: [facility] Address: [address] [place] [address] Result Comment: <100 mg/dL, Optimal 100-129 mg/dL, Near optimal/above optimal 130-159 mg/dL, Borderline high 160-189 mg/dL, High >189 mg/dL, Very high Secondary prevention optimal LDL Cholesterol levels are recommended to be <70 mg/dL LDL cholesterol is calculated using the Carpenter-NIH equation. Performed By: #### 5 8410-2 #### [facility] CLIA [id number] [address] [place] [address] OF [facility] Cholesterol in LDL/Cholesterol in HDL [Mass ratio] 3.00 {ratio} High <2.54 [facility] Comment on above: Order Comment: Yelena collins Type: BLOOD SPECIMEN Ordering Facility: [facility] Address: [address] [place] [address] Result Comment: Refemily paulino: 1. National Cholesterol Education Program ATP III Guideline At-A-Glance Quick Desk Reference: National Heart, Lung, and Blood Johnson. National Institutes of Health. 2001: NIH Publication No. 01-3305. 2. An International Atherosclerosis Society position paper: global recommendations for the management of dyslipidemia: executive summary, Atherosclerosis. 2014: 232(2):410-413. Performed By: #### 5 8410-2 #### [facility] CLIA [id number] [address] [place] [address] [place] Cholesterol in VLDL [Mass/Vol] 18 mg/dL Normal <30 [facility] Comment on above: Order Comment: Speci men Type: BLOOD SPECIMEN Ordering Facility: [facility] Address: [address] [place] [address] Performed By: #### 5 8410-2 #### [facility] CLIA [id number] [address] [place] [address] [place] Cholesterol non HDL [Mass/Vol] 122 mg/dL Normal <130 [facility] Comment on above: Order Comment: Speci men Type: BLOOD SPECIMEN Ordering Facility: [facility] Address: [address] [place] [address] Result Comment: <130 mg/dL, Optimal 130-159 mg/dL, Near optimal/above optimal 160-189 mg/dL, Borderline high 190-219 mg/dL, High >219 mg/dL, Very high Secondary prevention optimal non HDL Cholesterol levels are recommended to be <100 mg/dL Performed By: #### 5 8410-2 #### [facility] CLIA [id number] [address] [place] [address] [place] Cholesterol.total/Cho lesterol in HDL [Mass ratio] 4.59 {ratio} Normal <5.10 [facility] Comment on above: Order Comment: Speci men Type: BLOOD SPECIMEN Ordering Facility: [facility] Address: [address] [place] [address] Performed By: #### 5 8410-2 #### [facility] CLIA [id number] [address] [place] [address] [place] FASTING TIME 12 hrs Normal [facility] Comment on above: Order Comment: Speci men Type: BLOOD SPECIMEN Ordering Facility: [facility] Address: [address] [place] [address] Performed By: #### 5 8410-2 #### [facility] CLIA [id number] [address] [place] [address] [place] [place] Triglyceride [Mass/Vol] 110 mg/dL Normal <150 [facility] Comment on above: Order Comment: Speci men Type: BLOOD SPECIMEN Ordering Facility: [facility] Address: [address] [place] [address] Result Comment: <150 mg/dL, Normal 150-199 mg/dL, Borderline high 200-499 mg/dL, High >499 mg/dL, Very high Performed By: #### 5 8410-2 #### [facility] CLIA [id number] [address] [place] [address] [place] Absolute lymphocyte countOrd ered By: Ry James on 03-30-2025 Lymphocytes Auto (Unsp spec) [#/Vol] 1.38 10*3/uL 0.83-4.51 [facility] Absolute neutrophil countOrd ered By: Ry James on 03-30-2025 Neutrophils (Bld) [#/Vol] 9.0 10*3/uL High 2.0-7.7 [facility] Anion gap in Serum or Plasma Ordered By: Ry James on 03-30-2025 Anion gap [Moles/Vol] 10 mmol/L 5-[address] [facility] Automated lymphocyte count a s percentage of total leukocytesOrdered By: Ry James on 03-30-2025 Lymphocytes/100 WBC Auto (Unsp spec) 12.9 % Low 19-41 [facility] BUN/creatinine ratioOrdered By: Ry James on 03-30-2025 Urea nitrogen/Creatinine [Mass ratio] 9.3 mg/mg Low 10-20 [facility] Basophil percentageOrdered B y: Ry James on 03-30-2025 Basophils/100 WBC (Bld) 0.4 % 0-1 [facility] Bilirubin Test strip Ql (U)O rdered By: Ry James on 03-30-2025 Bilirubin Ql (U) Negative Negative [facility] Bilirubin, totalOrdered By: Ry James on 03-30-2025 Bilirubin [Mass/Vol] 0.44 mg/dL 0.00-1.30 [facility] CBC W/Diff, Automatedon 06-2 Absolute Lymph 1.38 X10 3/uL Normal 0.83-4.51 [facility] Comment on above: Performed By: #### L 501.2450, L700.6800, L100.0100, L500.4050 #### [facility] [address] [place], [address] Absolute Neut 9.0 X10 3/uL High 2.0-7.7 [facility] Comment on above: Performed By: #### L 501.2450, L700.6800, L100.0100, L500.4050 #### [facility] [address] [place], [address] Basophils/100 WBC (Bld) 0.4 % Normal 0-1 [facility] Comment on above: Performed By: #### L 501.2450, L700.6800, L100.0100, L500.4050 #### [facility] [address] [place], [address] Eosinophils/100 WBC (Bld) 0.0 % Normal 0-5 [facility] Comment on above: Performed By: #### L 501.2450, L700.6800, L100.0100, L500.4050 #### [facility] [address] [place], [address] Erythrocyte distribution width (RBC) [Ratio] 13.8 % Normal 11.6-14.6 [facility] Comment on above: Performed By: #### L 501.2450, L700.6800, L100.0100, L500.4050 #### [facility] [address] [place], [address] Hematocrit (Bld) [Volume fraction] 40.3 % Normal 37-47 [facility] Comment on above: Performed By: #### L 501.2450, L700.6800, L100.0100, L500.4050 #### [facility] [address] [place], [address] Hemoglobin (Bld) [Mass/Vol] 13.0 g/dL Normal 12.0-15.0 [facility] Comment on above: Performed By: #### L 501.2450, L700.6800, L100.0100, L500.4050 #### [facility] [address] [place], [address] IG% 0.400 Normal 0.0-0.9 [facility] Comment on above: Result Comment: IG% - Immature Granulocytes (promyelocytes, myelocytes and metamyelocytes) > 1% indicates that a LEFT SHIFT is Present. Performed By: #### L 501.2450, L700.6800, L100.0100, L500.4050 #### [facility] [address] [place], [address] Lymphocytes/100 WBC (Bld) 12.9 % Low 19-41 [facility] Comment on above: Performed By: #### L 501.2450, L700.6800, L100.0100, L500.4050 #### [facility] [address] [place], [address] MCH (RBC) [Entitic mass] 27.4 pg Normal 27.0-32.0 [facility] Comment on above: Performed By: #### L 501.2450, L700.6800, L100.0100, L500.4050 #### [facility] [address] [place], [address] MCHC (RBC) [Mass/Vol] 32.3 g/dL Normal 32-[address] [facility] Comment on above: Performed By: #### L 501.2450, L700.6800, L100.0100, L500.4050 #### [facility] [address] [place], [address] MCV (RBC) [Entitic vol] 85.0 fL Normal 81-99 [facility] Comment on above: Performed By: #### L 501.2450, L700.6800, L100.0100, L500.4050 #### [facility] [address] [place], [address] Monocytes/100 WBC (Bld) 2.3 % Normal 0-10 [facility] Comment on above: Performed By: #### L 501.2450, L700.6800, L100.0100, L500.4050 #### [facility] [address] [place], [address] Neutrophils/100 WBC (Bld) 84.0 % High 47-70 [facility] Comment on above: Performed By: #### L 501.2450, L700.6800, L100.0100, L500.4050 #### [facility] [address] [place], [address] Nucleated RBC (Bld) [#/Vol] 0 10*3/uL Normal 0-5 [facility] Comment on above: Performed By: #### L 501.2450, L700.6800, L100.0100, L500.4050 #### [facility] [address] [place], [address] Platelet mean volume (Bld) [Entitic vol] 10.8 fL Normal 6.2-12.0 [facility] Comment on above: Performed By: #### L 501.2450, L700.6800, L100.0100, L500.4050 #### [facility] [address] [place], [address] Platelets (Bld) [#/Vol] 259 10*3/uL Normal 150-450 [facility] Comment on above: Performed By: #### L 501.2450, L700.6800, L100.0100, L500.4050 #### [facility] [address] [place], [address] RBC (Bld) [#/Vol] 4.74 10*6/uL Normal 4.2-5.4 [facility] Comment on above: Performed By: #### L 501.2450, L700.6800, L100.0100, L500.4050 #### [facility] [address] [place], [address] RDW SD 42.8 fl Normal 35.1-43.9 [facility] Comment on above: Performed By: #### L 501.2450, L700.6800, L100.0100, L500.4050 #### [facility] [address] [place], [address] WBC (Bld) [#/Vol] 10.7 10*3/uL Normal 4.4-11.0 [facility] Comment on above: Performed By: #### L 501.2450, L700.6800, L100.0100, L500.4050 #### [facility] [address] [place], [address] Carbon dioxide, total [Moles /volume] in Central venous bloodOrdered By: Ry James on 03-30-2025 CO2 [Moles/Vol] 25.4 mmol/L 21.0-32.0 [facility] Chloride assayOrdered By: Lion James on 03-30-2025 Chloride [Moles/Vol] 104 mmol/L 98-108 [facility] Comprehensive Metabolic Prof ilon 03-30-2025 Albumin [Mass/Vol] 4.6 g/dL Normal 3.5-5.0 [facility] Comment on above: Performed By: #### L 501.2450, L700.6800, L100.0100, L500.4050 #### [facility] [address] [place], [address] Albumin/Globulin [Mass ratio] 1.5 {ratio} Normal 0.9-2.4 [facility] Comment on above: Performed By: #### L 501.2450, L700.6800, L100.0100, L500.4050 #### [facility] [address] [place], [address] ALK PHOS 63 U/L Normal 35-104 [facility] Comment on above: Performed By: #### L 501.2450, L700.6800, L100.0100, L500.4050 #### [facility] [address] [place], [address] ALT [Catalytic activity/Vol] 29 U/L Normal <=34 [facility] Comment on above: Performed By: #### L 501.2450, L700.6800, L100.0100, L500.4050 #### [facility] [address] [place], [address] AST [Catalytic activity/Vol] 26 U/L Normal <=31 [facility] Comment on above: Performed By: #### L 501.2450, L700.6800, L100.0100, L500.4050 #### [facility] [address] [place], [address] Bilirubin [Mass/Vol] 0.44 mg/dL Normal 0.00-1.30 [facility] Comment on above: Performed By: #### L 501.2450, L700.6800, L100.0100, L500.4050 #### [facility] [address] [place], [address] BUN/CRE 9.3 RATIO Low 10-20 [facility] Comment on above: Performed By: #### L 501.2450, L700.6800, L100.0100, L500.4050 #### [facility] [address] [place], [address] Calcium [Mass/Vol] 10.7 mg/dL Normal 7.6-11.0 [facility] Comment on above: Performed By: #### L 501.2450, L700.6800, L100.0100, L500.4050 #### [facility] [address] [place], [address] Chloride [Moles/Vol] 104 mmol/L Normal 98-108 [facility] Comment on above: Performed By: #### L 501.2450, L700.6800, L100.0100, L500.4050 #### [facility] [address] [place], [address] CO2 [Moles/Vol] 25.4 mmol/L Normal 21.0-32.0 [facility] Comment on above: Performed By: #### L 501.2450, L700.6800, L100.0100, L500.4050 #### [facility] [address] [place], [address] Creatinine [Mass/Vol] 0.80 mg/dL Normal 0.70-1.[address] [facility] Comment on above: Performed By: #### L 501.2450, L700.6800, L100.0100, L500.4050 #### [facility] [address] [place], [address] ECRCL 109.80 ml/min Normal 50-250 [facility] Comment on above: Performed By: #### L 501.2450, L700.6800, L100.0100, L500.4050 #### [facility] [address] [place], [address] GAP 10 Normal 5-15 [facility] Comment on above: Performed By: #### L 501.2450, L700.6800, L100.0100, L500.4050 #### [facility] [address] [place], [address] GFR/1.73 sq M.predicted among non-blacks MDRD (S/P/Bld) [Vol rate/Area] 101 mL/min/{1.73_m2} Normal >60 [facility] Comment on above: Result Comment: mL/m in/1.73m2 CKD-EPI Creatinine Equation (2020) Performed By: #### L 501.2450, L700.6800, L100.0100, L500.4050 #### [facility] [address] [place], [address] Globulin (S) [Mass/Vol] 3.1 g/dL Normal 2.2-4.2 [facility] Comment on above: Performed By: #### L 501.2450, L700.6800, L100.0100, L500.4050 #### [facility] [address] [place], [address] Glucose [Mass/Vol] 129 mg/dL High 70-99 [facility] Comment on above: Performed By: #### L 501.2450, L700.6800, L100.0100, L500.4050 #### [facility] [address] [place], [address] Potassium [Moles/Vol] 4.1 mmol/L Normal 3.3-5.[address] [facility] Comment on above: Performed By: #### L 501.2450, L700.6800, L100.0100, L500.4050 #### [facility] [address] [place], [address] Sodium [Moles/Vol] 139 mmol/L Normal 133-145 [facility] Comment on above: Performed By: #### L 501.2450, L700.6800, L100.0100, L500.4050 #### [facility] [address] [place], [address] T PROT 7.7 g/dL Normal 5.9-8.4 [facility] Comment on above: Performed By: #### L 501.2450, L700.6800, L100.0100, L500.4050 #### [facility] [address] [place], [address] Urea nitrogen [Mass/Vol] 7 mg/dL Normal 4-19 [facility] Comment on above: Performed By: #### L 501.2450, L700.6800, L100.0100, L500.4050 #### [facility] [address] [place], [address] Emergency Department Summary on 03-30-2025 Emergency Department Summary [facility] Medical Records Department [address] [place] [address] Emergency Department Summary 03/30/25 MR#: [id number] Acct: [id number] Name: JOSHUA CHOUDHARY Rep #: [id number] : 1995 30 From: Ry James DO PCP: FREDY Darden Status:DEP ER Location: ED HPI History of Present Illness Chief Complaint: Anxiety Informant: patient Onset/Context/Timing Onset: Today Context: Gradual Onset Timing: Continuous Quality: Anxiety Location: Generalized Worsened by: Nothing Relieved by: Nothing Narrative Narrative: Patient presents with nausea and vomiting, sweats, and shortness of breath that became worse again today. Patient was seen here earlier today. Patient states she was feeling better when she was discharged. Patient states she has a history of panic disorder and states this feels similar to prior panic attacks. Patient states she is unable to keep anything down. Patient admits to some sweats. Patient admits to subjective fevers and chills. Patient denies any chest pain. Patient admits to some shortness of breath. Patient denies any neck or back pain. [facility] Medical History Anxiety Anxiety disorder Cannabis use disorder Cyclic vomiting syndrome PCOS (polycystic ovarian syndrome) Home Medications ???Medication ???Instructions ???Recorded ???Last Taken ???Type propranolol 80 mg capsule,24 20 mg PO BID PRN anxiety 02/23/24 Unknown History hr,extended release hydroxyzine pamoate 25 mg capsule 25 mg PO TID PRN PRN Anxiety #10 03/30/25 Unknown Rx CAPSULES ondansetron 4 mg disintegrating 4 mg PO Q8H PRN PRN Nausea #10 tab s 03/30/25 Unknown Rx tablet venlafaxine 150 mg 150 mg PO DAILY 03/30/25 Unknown H istory capsule,extended release 24 hr (Effexor XR) Allergy/AdvReac Type Severity Reaction Status Date / Time No Known Allergies Allergy Verified 03/30/25 18:16 Family History Mother Cancer skin Surgical History right salpingectomy FH: cholecystectomy Social History housing: apartment number of children: 0 current occupational status: employed current occupation: [employer] Smoking Status: Current every day smoker tobacco type: e-cigarettes Smokeless tobacco user: chewing tobacco alcohol intake: current alcohol intake frequency: holidays/special occasions only substance use type: marijuana seatbelt use: always do you feel safe at home: Yes additional social history: [employer] ROS ROS ED Constitutional Constitutional ED: Reports chills, fever(s), subjective and sweats Eyes Eyes: Denies blurry vision or change in vision ENT ENT ED: Denies rhinorrhea or sore throat Cardiovascular Cardiovascular: Denies chest pain or palpitations Respiratory/Chest Respiratory/Chest: Reports dyspnea; Denies cough Gastrointestinal Gastrointestinal: Reports abdominal pain, nausea and vomiting Genitourinary Genitourinary ED: Denies dysuria or hematuria Musculoskeletal Musculoskeletal: Denies back pain or neck pain Integumentary Denies abscess or rash Neurologic Neurologic: Denies headache(s) or weakness Psychiatric Psychiatric: Reports anxiety Allergic/Immunologic Allergic/Immunologic ED: Denies mouth swelling or urticaria EXAM Physical Exam Const Vital Signs: 03/30/25 18:15 03/30/25 20:15 Temperature 97.8 F Temperature Source Oral Pulse Rate 112 H Respiratory Rate 20 H Blood Pressure 155/67 H 138/88 H Blood Pressure Mean 96 104 Pulse Ox 99 Oxygen Delivery Method Room Air Positive well nourished and well developed Constitutional Narrative: BMI is 29.4. General Appearance ED: well developed and NAD HEENT Reports moist mucous membranes Neck supple and no JVD Resp normal respiratory effort and clear to auscultation bilaterally Cardio regular rhythm Rate: tachycardic GI non-distended Palpation: soft Neuro oriented x3, CN's II-XII intact bilaterally and no sensory deficits noted Sensorium / Orientation: alert Motor Exam: strength 5/5 throughout Psych Mood Affect: anxious MDM MDM MDM Narrative Medical decision making narrative: Differential diagnosis includes gastroenteritis, cannabis hyperemesis syndrome, gastritis, anxiety, and dehydration. Patient will be given IV fluids. Cyclic vomiting orders will be placed. History Record Review Additional record(s) reviewed:: Prior ED visit and Prior labs Treatment and Re-Evaluation :: Patient is an IV fluids, Ativan, Zofran, and Pepcid. Patient was also given capsaicin cream. Patient had minimal relief wit (more content not included)... Normal [facility] Emergency Department Summary [facility] Medical Records Department [address] [place] [address] Emergency Department Summary 03/30/25 MR#: [id number] Acct: [id number] Name: JOSHUA CHOUDHARY Rep #: [id number] : 1995 30 From: Ry James DO PCP: Lesa Soler NP-C Status:DEP ER Location: ED HPI HPI - GI History of Present Illness Chief Complaint: Nausea/Vomiting Informant: patient Abdominal Pain/Flank Pain Onset: Today Context: Sudden Onset Timing: Intermittent Quality: - (Vibrating) Location: Diffuse Worsened by: - (Certain positions) Relieved by: - (Certain positions) Nausea/Vomiting/Emesis GI Symptom: Positive for Nausea and Vomiting Quality: Positive for Nonbilious; Negative for Blood streaks, Coffee ground or Hematemesis Diarrhea/Melena/Hematochezia GI Symptom: Negative for Diarrhea, Melena or Hematochezia Associated Symptoms Associated Symptoms: Negative for Dysuria, Frequency or Hematuria Narrative Narrative: Patient presents with nausea and vomiting that began today. Patient states she woke up and felt like she was having a panic attack. Patient states that her panic attacks usually triggered nausea and vomiting. Patient states she has had multiple episodes of vomiting this morning. Patient states that it is mostly stomach contents. Patient denies any hematemesis or coffee-ground emesis. Patient admits to some diffuse abdominal pain. Patient describes it as vibrating in her abdomen. Patient states that it is worse with certain positions and better with other positions. Patient states it comes and goes. Patient denies any diarrhea, melena, or hematochezia. Patient denies any urinary complaints. Prior similar symptoms: Yes PFSH PFSH Medical History Anxiety Anxiety disorder Cannabis use disorder Cyclic vomiting syndrome PCOS (polycystic ovarian syndrome) Home Medications ???Medication ???Instructions ???Recorded ???Last Taken ???Type propranolol 80 mg capsule,24 20 mg PO BID PRN anxiety 02/23/24 Unknown History hr,extended release hydroxyzine pamoate 25 mg capsule 25 mg PO TID PRN PRN Anxiety #10 03/14/25 Unknown Rx CAPSULES ondansetron 4 mg disintegrating 4 mg PO Q8H PRN PRN Nausea #10 tab s 03/30/25 Unknown Rx tablet venlafaxine 150 mg 150 mg PO DAILY 03/30/25 Unknown H istory capsule,extended release 24 hr (Effexor XR) Allergy/AdvReac Type Severity Reaction Status Date / Time No Known Allergies Allergy Verified 03/30/25 09:53 Family History Mother Cancer skin Surgical History right salpingectomy FH: cholecystectomy Social History housing: apartment number of children: 0 current occupational status: employed current occupation: [employer] Smoking Status: Current every day smoker tobacco type: e-cigarettes Smokeless tobacco user: chewing tobacco alcohol intake: current alcohol intake frequency: holidays/special occasions only substance use type: marijuana seatbelt use: always do you feel safe at home: Yes additional social history: [employer] ROS ROS ED Constitutional Constitutional ED: Reports chills, subjective and sweats; Denies fever(s) Eyes Eyes: Denies blurry vision or change in vision ENT ENT ED: Denies rhinorrhea or sore throat Cardiovascular Cardiovascular: Denies chest pain or palpitations Respiratory/Chest Respiratory/Chest: Denies cough or dyspnea Gastrointestinal Gastrointestinal: Reports abdominal pain, nausea and vomiting; Denies diarrhea or melena Genitourinary Genitourinary ED: Denies dysuria or hematuria Musculoskeletal Musculoskeletal: Denies back pain or neck pain Integumentary Denies abscess or rash Neurologic Neurologic: Denies headache(s) or weakness Psychiatric Psychiatric: Reports anxiety; Denies suicidal thoughts Allergic/Immunologic Allergic/Immunologic ED: Denies mouth swelling or urticaria EXAM Physical Exam Const Vital Signs: 03/30/25 09:52 Temperature 97.8 F Temperature Source Temporal Pulse Rate 70 Respiratory Rate 20 H Blood Pressure 122/73 H Blood Pressure Mean 89 Pulse Ox 100 Oxygen Delivery Method Room Air Positive well nourished and well developed General Appearance ED: well developed and NAD HEENT Reports moist mucous membranes Neck supple and no JVD Resp normal respiratory effort and clear to auscultation bilaterally Cardio regular rate and regular rhythm GI non-distended Palpation: soft and tender epigastric, LLQ, RLQ, LUQ, RUQ, periumbilical and suprapubic; Negative for guarding or rebound tenderness present Neuro CN' (more content not included)... Normal [facility] Eosinophil percentageOrdered By: Ry James on 03-30-2025 Eosinophils/100 WBC (Bld) 0.0 % 0-5 [facility] Erythrocyte distribution wid th ratioOrdered By: Ry James on 03-30-2025 Erythrocyte distribution width (RBC) [Ratio] 13.8 % 11.6-14.6 [facility] Erythrocyte distribution wid th standard deviationOrdered By: Ry James on 03-30-2025 Erythrocyte distribution width (RBC) [Ratio] 42.8 fl 35.1-43.9 [facility] Glomerular filtration rate ( GFR) estimation/1.73 sq m using serum, plasma, or whole bOrdered By: Ry James on 03-30-2025 GFR/1.73 sq M.predicted among non-blacks MDRD (S/P/Bld) [Vol rate/Area] 101 mL/min/{1.73_m2} >60 [facility] Comment on above: mL/min/1.73m2 CKD-EP I Creatinine Equation (2020) Hematocrit Auto (Bld) [Volum e fraction]Ordered By: Ry James on 03-30-2025 Hematocrit (Bld) [Volume fraction] 40.3 % 37-47 [facility] Hemoglobin measurementOrdere d By: Ry James on 03-30-2025 Hemoglobin (Bld) [Mass/Vol] 13.0 g/dL 12.0-15.0 [facility] Immature granulocytes/100 WB C Auto (Bld)Ordered By: Ry James on 03-30-2025 Immature granulocytes/100 WBC (Bld) 0.400 % 0.0-0.9 [facility] Comment on above: IG% - Immature Granu locytes (promyelocytes, myelocytes and metamyelocytes) > 1% indicates that a LEFT SHIFT is Present. Ketones Test strip Ql (U)Ord ered By: Ry James on 03-30-2025 Ketones Ql (U) Negative Negative [facility] - Chemistry and C hemistry - challengeOrdered By: Ry James on 03-30-2025 AST [Catalytic activity/Vol] 26 U/L <32 [facility] Lipaseon 03-30-2025 Lipase [Catalytic activity/Vol] 32 U/L Normal 13-75 [facility] Comment on above: Result Comment: Plechasidy porter note: LIPASE revised reference range effective 23. New Lipase methodology. Expected to produce lower values than the previous assay method. NEW Reference Range: 13 - 75 U/L Performed By: #### L 501.2450, L700.6800, L100.0100, L500.4050 #### [facility] [address] [place], [address] Lipase measurementOrdered By : Ry James on 03-30-2025 Lipase [Catalytic activity/Vol] 32 U/L 13-75 [facility] Comment on above: Please note:LIPASE r evised reference range effective 23. New Lipase methodology. Expected to produce lower values than the previous assay method. NEW Reference Range: 13 - 75 U/L MCV (mean corpuscular volume ) determinationOrdered By: Ry James on 03-30-2025 MCV (RBC) [Entitic vol] 85.0 fL 81-99 [facility] Mean corpuscular hemoglobin (MCH) determinationOrdered By: Ry James on 03-30-2025 MCH (RBC) [Entitic mass] 27.4 pg 27.0-32.0 [facility] Mean corpuscular hemoglobin concentration (MCHC) determinationOrdered By: Ry James on 03-30-2025 MCHC (RBC) [Mass/Vol] 32.3 g/dL 32-[address] [facility] Mean platelet volume determi nationOrdered By: Ry James on 03-30-2025 Platelet mean volume (Bld) [Entitic vol] 10.8 fL 6.2-12.0 [facility] Microscopic analysis of urin e for red blood cells (RBC)Ordered By: Ry James on 03-30-2025 Microscopic analysis of urine for red blood cells (RBC) 0 SEEN /hpf 0-5 [facility] Monocyte percentageOrdered B y: Ry James on 03-30-2025 Monocytes/100 WBC (Bld) 2.3 % 0-10 [facility] Mucus LM Ql (Urine sed)Order ed By: Ry James on 03-30-2025 Mucus Ql (Urine sed) 1+ /hpf [facility] Neutrophil percentageOrdered By: Ry James on 03-30-2025 Neutrophils/100 WBC (Bld) 84.0 % High 47-70 [facility] Nitrite Test strip Ql (U)Ord ered By: Ry James on 03-30-2025 Nitrite Ql (U) Negative Negative [facility] Nucleated red blood cell per centageOrdered By: Ry James on 03-30-2025 Nucleated RBC/100 WBC (Bld) [Ratio] 0 % 0-5 [facility] Platelet countOrdered By: Lion James on 03-30-2025 Platelets (Bld) [#/Vol] 259 10*3/uL 150-450 [facility] Potassium measurement (mass/ volume)Ordered By: Ry James on 03-30-2025 Potassium (Unsp spec) [Mass/Vol] 4.1 mmol/L 3.3-5.1 [facility] ,Serum,hCG Quali.on 03-30-2025 HCG, SERUM QUAL Negative Normal [facility] Comment on above: Performed By: #### L 501.2450, L700.6800, L100.0100, L500.4050 #### [facility] [address] [place], [address] Protein Test strip Ql (U)Ord ered By: Ry James on 03-30-2025 Protein Ql (U) 15 mg/dl High Negative [facility] RBC Auto (Bld) [#/Vol]Ordere d By: Ry James on 03-30-2025 RBC (Bld) [#/Vol] 4.74 10*6/uL 4.2-5.4 [facility] Serum beta-hCG test, qualita tiveOrdered By: Ry James on 03-30-2025 Beta HCG ( test) Ql Negative [facility] Serum creatinine measurement (mass/volume)Ordered By: Ry James on 03-30-2025 Creatinine [Mass/Vol] 0.80 mg/dL 0.70-1.[address] [facility] Serum globulin measurementOr dered By: Ry James on 03-30-2025 Globulin (S) [Mass/Vol] 3.1 g/dL 2.2-4.2 [facility] Serum glucose measurement (m ass/volume)Ordered By: Ry James on 03-30-2025 Glucose [Mass/Vol] 129 mg/dL High 70-99 [facility] Serum or plasma alanine peterson otransferase (ALT) measurementOrdered By: Ry James on 03-30-2025 ALT [Catalytic activity/Vol] 29 U/L <35 [facility] Serum or plasma albumin prakash urement (mass/volume)Ordered By: Ry James on 03-30-2025 Albumin [Mass/Vol] 4.6 g/dL 3.5-5.0 [facility] Serum or plasma albumin/glob ulin mass ratioOrdered By: Ry James on 03-30-2025 Albumin/Globulin [Mass ratio] 1.5 {ratio} 0.9-2.4 [facility] Serum or plasma alkaline frandy sphatase measurementOrdered By: Ry James on 03-30-2025 ALP [Catalytic activity/Vol] 63 U/L 35-104 [facility] Serum or plasma calcium prakash urement (mass/volume)Ordered By: Ry James on 03-30-2025 Calcium [Mass/Vol] 10.7 mg/dL 7.6-11.0 [facility] Serum or plasma urea nitroge n measurement (mass/volume)Ordered By: Ry James on 03-30-2025 Urea nitrogen [Mass/Vol] 7 mg/dL 4-19 [facility] Sodium levelOrdered By: Ry James on 03-30-2025 Sodium [Moles/Vol] 139 mmol/L 133-145 [facility] Squamous epithelial cells de tection in urine sediment by light microscopyOrdered By: Ry James on 03-30-2025 Epithelial cells.squamous LM Ql (Urine sed) 0-5 SEEN /hpf - [facility] Total proteinOrdered By: Marina James on 03-30-2025 Protein [Mass/Vol] 7.7 g/dL 5.9-8.4 [facility] Urinalysis, Completeon 03-30 BACTERIA RARE Normal None Seen [facility] Comment on above: Order Comment: CLEAN CATCH Performed By: #### L 505.5000, L501.9100, L501.2450, L700.6800, L100.0100, L500.4050 #### [facility] [address] [place], [address] EPI,SQUAMOUS 0-5 SEEN Normal 5-10 [facility] Comment on above: Order Comment: CLEAN CATCH Performed By: #### L 505.5000, L501.9100, L501.2450, L700.6800, L100.0100, L500.4050 #### [facility] [address] [place], [place], [id number] Mucus Ql (Urine sed) 1+ /hpf Normal [facility] Comment on above: Order Comment: CLEAN CATCH Performed By: #### L 505.5000, L501.9100, L501.2450, L700.6800, L100.0100, L500.4050 #### [facility] [address] [place], [place], [id number] WBC 0-5 SEEN Normal 0-5 [facility] Comment on above: Order Comment: CLEAN CATCH Performed By: #### L 505.5000, L501.9100, L501.2450, L700.6800, L100.0100, L500.4050 #### [facility] [address] [place], [place], [id number] RBC 0 SEEN Normal 0-5 [facility] Comment on above: Order Comment: CLEAN CATCH Performed By: #### L 505.5000, L501.9100, L501.2450, L700.6800, L100.0100, L500.4050 #### [facility] [address] [place], [place], [id number] Urine clarityOrdered By: Marina James on 03-30-2025 Clarity (U) Clear Clear [facility] Urine color determinationOrd ered By: Ry James on 03-30-2025 Color (U) Yellow Yellow [facility] Urine glucose detectionOrder ed By: Ry James on 03-30-2025 Glucose Ql (U) Normal mg/dl Normal [facility] Urine leukocyte esterase det ection by dipstickOrdered By: Ry James on 03-30-2025 Leukocyte esterase Test strip Ql (U) 25 /ul High Negative [facility] Urine pHOrdered By: Ry giraldo on 03-30-2025 pH (U) 6.5 [pH] 5.0 - 8.0 [facility] Urine sediment bacteria coun t by microscopy (number/high power field)Ordered By: yR James on 03-30-2025 Bacteria LM.HPF (Urine sed) [#/Area] RARE /hpf None Seen [facility] Urine specific gravity measu rementOrdered By: Ry James on 03-30-2025 Specific gravity (U) [Rel density] 1.015 1.002-1.03 0 [facility] Urine urobilinogen measureme ntOrdered By: Ry James on 03-30-2025 Urobilinogen Ql (U) Normal mg/dl Normal [facility] White blood cell (WBC) count Ordered By: Ry James on 03-30-2025 WBC (Bld) [#/Vol] 10.7 10*3/uL 4.4-11.0 [facility] White blood cell countOrdere d By: Ry James on 03-30-2025 White blood cell count 0-5 SEEN /hpf 0-5 [facility] CNPNon 03-21-2025 CNPN Telephone (YULYFAMPMILLA) JOSHUA CHOUDHARY ([id number]) 1995 F Date Time Provider Department 03/21/25 LESA SOLER During your visit today, we recorded the following information about you: Myra Duran MA 03/21/2025 8:32 AM Signed Recheck MARIBELL Bose Kristin C, APRN.CNP 03/21/2025 10:13 AM Signed Thank you. Please see kellee. JAMILA Kwok Kristin C, APRN.CNP 03/21/2025 10:13 AM Signed Addended by: LESA SOLER on: 03/21/2025 10:13 AM Modules accepted: Myra Carr MA 03/21/2025 11:06 AM Signed Left message informing patient, phone number to reach the office was left for any questions or concerns. Myra Duran MA Allergies As of Date: 03/21/2025 (No Known Allergies) Date Reviewed: 11/27/2024 Reviewed by: Lesa Soler APRN.BUTTERMAKER - Fully Assessed Reason for Visit: Lab Orders [1688] Primary Visit Diagnosis:Dyslipidemia [E78.5] Order(s):COMPLETE BLOOD COUNT [SQCBC] Order #: [id number] FUTURE COMPREHENSIVE METABOLIC PANEL [SQCMP] Order #: [id number] FUTURE LIPID PANEL, FASTING [SQLIPB] Order #: [id number] FUTURE Prescriptions as of 03/21/2025 - venlafaxine [...] MYRA DURAN on 03/21/25 Normal [facility] Anion gap in Serum or Plasma Ordered By: Andres Loyola on 03-14-2025 Anion gap [Moles/Vol] 12 mmol/L 02-[address] [facility] BUN/creatinine ratioOrdered By: Andres Loyola on 03-14-2025 Urea nitrogen/Creatinine [Mass ratio] 12.5 mg/mg 07-21 [facility] Basic Metabolic Profile (BMP )on 03-14-2025 BUN/CRE 12.5 RATIO Normal 07-21 [facility] Comment on above: Performed By: #### L 505.5000, L501.9100, L501.2450, L700.6800, L100.0100, L500.4050 #### [facility] [address] [place], [address] Calcium [Mass/Vol] 11.1 mg/dL High 7.6-11.0 [facility] Comment on above: Performed By: #### L 505.5000, L501.9100, L501.2450, L700.6800, L100.0100, L500.4050 #### [facility] [address] [place], [address] Chloride [Moles/Vol] 103 mmol/L Normal 98-108 [facility] Comment on above: Performed By: #### L 505.5000, L501.9100, L501.2450, L700.6800, L100.0100, L500.4050 #### [facility] [address] [place], [address] CO2 [Moles/Vol] 25.3 mmol/L Normal 21.0-32.0 [facility] Comment on above: Performed By: #### L 505.5000, L501.9100, L501.2450, L700.6800, L100.0100, L500.4050 #### [facility] [address] [place], [address] Creatinine [Mass/Vol] 0.77 mg/dL Normal 0.70-1.[address] [facility] Comment on above: Performed By: #### L 505.5000, L501.9100, L501.2450, L700.6800, L100.0100, L500.4050 #### [facility] [address] [place], [address] ECRCL 112.39 ml/min Normal 50-250 [facility] Comment on above: Performed By: #### L 505.5000, L501.9100, L501.2450, L700.6800, L100.0100, L500.4050 #### [facility] [address] [place], [address] GAP 12 Normal 5-15 [facility] Comment on above: Performed By: #### L 505.5000, L501.9100, L501.2450, L700.6800, L100.0100, L500.4050 #### [facility] [address] [place], [address] GFR/1.73 sq M.predicted among non-blacks MDRD (S/P/Bld) [Vol rate/Area] 106 mL/min/{1.73_m2} Normal >60 [facility] Comment on above: Result Comment: mL/m in/1.73m2 CKD-EPI Creatinine Equation (2020) Performed By: #### L 505.5000, L501.9100, L501.2450, L700.6800, L100.0100, L500.4050 #### [facility] [address] [place], [address] Glucose [Mass/Vol] 147 mg/dL High 70-99 [facility] Comment on above: Performed By: #### L 505.5000, L501.9100, L501.2450, L700.6800, L100.0100, L500.4050 #### [facility] [address] [place], [address] Potassium [Moles/Vol] 3.8 mmol/L Normal 3.3-5.[address] [facility] Comment on above: Performed By: #### L 505.5000, L501.9100, L501.2450, L700.6800, L100.0100, L500.4050 #### [facility] [address] [place], [address] Sodium [Moles/Vol] 140 mmol/L Normal 133-145 [facility] Comment on above: Performed By: #### L 505.5000, L501.9100, L501.2450, L700.6800, L100.0100, L500.4050 #### [facility] [address] [place], [address] Urea nitrogen [Mass/Vol] 10 mg/dL Normal 4-19 [facility] Comment on above: Performed By: #### L 505.5000, L501.9100, L501.2450, L700.6800, L100.0100, L500.4050 #### [facility] [address] [place], [address] Carbon dioxide, total [Moles /volume] in Central venous bloodOrdered By: Andres Loyola on 03-14-2025 CO2 [Moles/Vol] 25.3 mmol/L 21.0-32.0 [facility] Chloride assayOrdered By: Jonathon Loyola on 03-14-2025 Chloride [Moles/Vol] 103 mmol/L 98-108 [facility] Emergency Department Summary on 03-14-2025 Emergency Department Summary [facility] Medical Records Department [address] [facility] [place] [address] Emergency Department Summary 03/14/25 MR#: [id number] Acct: [id number] Name: JOSHUA CHOUDHARY Rep #: [id number] : 1995 30 From: Andres Pedroza PCP: [...] 0 current occupational status: employed current occupation: [employer] Smoking Status: Current every day [...] Negative fo (more content not included)... Normal [facility] Glomerular filtration rate ( GFR) estimation/1.73 sq m using serum, plasma, or whole bOrdered By: Andres Loyola on 03-14-2025 GFR/1.73 sq M.predicted among non-blacks MDRD (S/P/Bld) [Vol rate/Area] 106 mL/min/{1.73_m2} >60 [facility] Comment on above: mL/min/1.73m2 CKD-EP I Creatinine Equation (2020) Potassium measurement (mass/ volume)Ordered By: Andres Loyola on 03-14-2025 Potassium (Unsp spec) [Mass/Vol] 3.8 mmol/L 3.3-5.1 [facility] ,Serum,hCG Quali.on 03-14-2025 HCG, SERUM QUAL Negative Normal [facility] Comment on above: Performed By: #### L 505.5000, L501.9100, L501.2450, L700.6800, L100.0100, L500.4050 #### [facility] [address] [place], [address] Serum beta-hCG test, qualita tiveOrdered By: Andres Loyola on 03-14-2025 Beta HCG ( test) Ql Negative [facility] Serum creatinine measurement (mass/volume)Ordered By: Andres Loyola on 03-14-2025 Creatinine [Mass/Vol] 0.77 mg/dL 0.70-1.[address] [facility] Serum glucose measurement (m ass/volume)Ordered By: Andres Loyola on 03-14-2025 Glucose [Mass/Vol] 147 mg/dL High 70-99 [facility] Serum or plasma calcium prakash urement (mass/volume)Ordered By: Andres Loyola on 03-14-2025 Calcium [Mass/Vol] 11.1 mg/dL High 7.6-11.0 [facility] Serum or plasma urea nitroge n measurement (mass/volume)Ordered By: Andres Loyola on 03-14-2025 Urea nitrogen [Mass/Vol] 10 mg/dL 4-19 [facility] Sodium levelOrdered By: Andres Loyola on 03-14-2025 Sodium [Moles/Vol] 140 mmol/L 133-145 [facility] ED Prov Noteon 02-08-2025 ED Prov [...] are negative. PAST HISTORY Past Medical History: @[facility] Past Surgical History: has no past surgical [...] itching . Follow-up: [facility] [address] [facility] [address] [facility] [id number] In 3 days Final Impression: 1. Panic attack (Please note that portions of this note were completed with a voice recognition program. Efforts were made to edit the dictations but occasionally words are mis-transcribed.) Wu Crisostomo MD 02/08/25 0854 AUTHENTICATED BY WU CRISOSTOMO, ON 02/08/2025 08:54:[address] [facility] Absolute lymphocyte countOrd ered By: Juan Tapia on 02-06-2025 Lymphocytes Auto (Unsp spec) [#/Vol] 2.06 10*3/uL 0.83-4.51 [facility] Absolute neutrophil countOrd ered By: Juan Tapia on 02-06-2025 Neutrophils (Bld) [#/Vol] 12.2 10*3/uL High 2.0-7.7 [facility] Alcohol, Blood (Medical)-Ser umon 02-06-2025 SERUM ETOH < 10.1 Normal <=10.0 [facility] Comment on above: Result Comment: Hemo lysis Present, Results may be affected. This test is for medical purposes only. The legal definition of intoxication varies according to local law. Performed By: #### L 505.5000, L501.9100, L501.2450, L700.6800, L100.0100, L500.4050 #### [facility] [address] [facility] [place], [place], [id number] Amphetamine detection with 1 000 ng/mL as cutoffOrdered By: Juan Tapia on 02-06-2025 Amphetamines Screen method >1000 ng/mL Ql (U) Negative < 200 ng/mL [facility] Anion gap in Serum or Plasma Ordered By: Juan Tapia on 02-06-2025 Anion gap [Moles/Vol] 11 mmol/L 5-[address] [facility] Automated lymphocyte count a s percentage of total leukocytesOrdered By: Juan Tapia on 02-06-2025 Lymphocytes/100 WBC Auto (Unsp spec) 13.9 % Low 19-41 [facility] BUN/creatinine ratioOrdered By: Juan Tapia on 02-06-2025 Urea nitrogen/Creatinine [Mass ratio] 9.7 mg/mg Low 10-20 [facility] Basophil percentageOrdered B y: Juan Tapia on 02-06-2025 Basophils/100 WBC (Bld) 0.2 % 0-1 [facility] Bilirubin, totalOrdered By: Juan Tapia on 02-06-2025 Bilirubin [Mass/Vol] 0.41 mg/dL 0.00-1.30 [facility] CBC W/Diff, Automatedon Absolute Lymph 2.06 X10 3/uL Normal 0.83-4.51 [facility] Comment on above: Performed By: #### L 505.5000, L501.9100, L501.2450, L700.6800, L100.0100, L500.4050 #### [facility] [address] [place], [address] Absolute Neut 12.2 X10 3/uL High 2.0-7.7 [facility] Comment on above: Performed By: #### L 505.5000, L501.9100, L501.2450, L700.6800, L100.0100, L500.4050 #### [facility] [address] [place], [address] Basophils/100 WBC (Bld) 0.2 % Normal 0-1 [facility] Comment on above: Performed By: #### L 505.5000, L501.9100, L501.2450, L700.6800, L100.0100, L500.4050 #### [facility] [address] [place], [address] Eosinophils/100 WBC (Bld) 0.0 % Normal 0-5 [facility] Comment on above: Performed By: #### L 505.5000, L501.9100, L501.2450, L700.6800, L100.0100, L500.4050 #### [facility] [address] [place], [address] Erythrocyte distribution width (RBC) [Ratio] 13.2 % Normal 11.6-14.6 [facility] Comment on above: Performed By: #### L 505.5000, L501.9100, L501.2450, L700.6800, L100.0100, L500.4050 #### [facility] [address] [place], [address] Hematocrit (Bld) [Volume fraction] 40.4 % Normal 37-47 [facility] Comment on above: Performed By: #### L 505.5000, L501.9100, L501.2450, L700.6800, L100.0100, L500.4050 #### [facility] [address] [place], [address] Hemoglobin (Bld) [Mass/Vol] 13.5 g/dL Normal 12.0-15.0 [facility] Comment on above: Performed By: #### L 505.5000, L501.9100, L501.2450, L700.6800, L100.0100, L500.4050 #### [facility] [address] [place], [address] IG% 0.800 Normal 0.0-0.9 [facility] Comment on above: Result Comment: IG% - Immature Granulocytes (promyelocytes, myelocytes and metamyelocytes) > 1% indicates that a LEFT SHIFT is Present. Performed By: #### L 505.5000, L501.9100, L501.2450, L700.6800, L100.0100, L500.4050 #### [facility] [address] [place], [address] Lymphocytes/100 WBC (Bld) 13.9 % Low 19-41 [facility] Comment on above: Performed By: #### L 505.5000, L501.9100, L501.2450, L700.6800, L100.0100, L500.4050 #### [facility] [address] [place], [address] MCH (RBC) [Entitic mass] 28.7 pg Normal 27.0-32.0 [facility] Comment on above: Performed By: #### L 505.5000, L501.9100, L501.2450, L700.6800, L100.0100, L500.4050 #### [facility] [address] [place], [address] MCHC (RBC) [Mass/Vol] 33.4 g/dL Normal 32-[address] [facility] Comment on above: Performed By: #### L 505.5000, L501.9100, L501.2450, L700.6800, L100.0100, L500.4050 #### [facility] [address] [place], [address] MCV (RBC) [Entitic vol] 85.8 fL Normal 81-99 [facility] Comment on above: Performed By: #### L 505.5000, L501.9100, L501.2450, L700.6800, L100.0100, L500.4050 #### [facility] [address] [place], [address] Monocytes/100 WBC (Bld) 2.3 % Normal 0-10 [facility] Comment on above: Performed By: #### L 505.5000, L501.9100, L501.2450, L700.6800, L100.0100, L500.4050 #### [facility] [address] [place], [address] Neutrophils/100 WBC (Bld) 82.8 % High 47-70 [facility] Comment on above: Performed By: #### L 505.5000, L501.9100, L501.2450, L700.6800, L100.0100, L500.4050 #### [facility] [address] [place], [address] Nucleated RBC (Bld) [#/Vol] 0 10*3/uL Normal 0-5 [facility] Comment on above: Performed By: #### L 505.5000, L501.9100, L501.2450, L700.6800, L100.0100, L500.4050 #### [facility] [address] [place], [address] Platelet mean volume (Bld) [Entitic vol] 11.3 fL Normal 6.2-12.0 [facility] Comment on above: Performed By: #### L 505.5000, L501.9100, L501.2450, L700.6800, L100.0100, L500.4050 #### [facility] [address] [place], [address] Platelets (Bld) [#/Vol] 324 10*3/uL Normal 150-450 [facility] Comment on above: Performed By: #### L 505.5000, L501.9100, L501.2450, L700.6800, L100.0100, L500.4050 #### [facility] [address] [place], [address] RBC (Bld) [#/Vol] 4.71 10*6/uL Normal 4.2-5.4 [facility] Comment on above: Performed By: #### L 505.5000, L501.9100, L501.2450, L700.6800, L100.0100, L500.4050 #### [facility] [address] [place], [address] RDW SD 41.2 fl Normal 35.1-43.9 [facility] Comment on above: Performed By: #### L 505.5000, L501.9100, L501.2450, L700.6800, L100.0100, L500.4050 #### [facility] [address] [place], [address] WBC (Bld) [#/Vol] 14.8 10*3/uL High 4.4-11.0 [facility] Comment on above: Performed By: #### L 505.5000, L501.9100, L501.2450, L700.6800, L100.0100, L500.4050 #### [facility] [address] [place], [address] Carbon dioxide, total [Moles /volume] in Central venous bloodOrdered By: Juan Tapia on 02-06-2025 CO2 [Moles/Vol] 25.0 mmol/L 21.0-32.0 [facility] Chloride assayOrdered By: Luisito Tapia on 02-06-2025 Chloride [Moles/Vol] 105 mmol/L 98-108 [facility] Comprehensive Metabolic Prof ilon 02-06-2025 Albumin [Mass/Vol] 4.7 g/dL Normal 3.5-5.0 [facility] Comment on above: Performed By: #### L 505.5000, L501.9100, L501.2450, L700.6800, L100.0100, L500.4050 #### [facility] [address] [place], [address] Albumin/Globulin [Mass ratio] 1.5 {ratio} Normal 0.9-2.4 [facility] Comment on above: Performed By: #### L 505.5000, L501.9100, L501.2450, L700.6800, L100.0100, L500.4050 #### [facility] [address] [place], [address] ALK PHOS 65 U/L Normal 35-104 [facility] Comment on above: Performed By: #### L 505.5000, L501.9100, L501.2450, L700.6800, L100.0100, L500.4050 #### [facility] [address] [place], [address] ALT [Catalytic activity/Vol] 23 U/L Normal <=34 [facility] Comment on above: Performed By: #### L 505.5000, L501.9100, L501.2450, L700.6800, L100.0100, L500.4050 #### [facility] [address] [place], [address] AST [Catalytic activity/Vol] 27 U/L Normal <=31 [facility] Comment on above: Performed By: #### L 505.5000, L501.9100, L501.2450, L700.6800, L100.0100, L500.4050 #### [facility] [address] [place], [address] Bilirubin [Mass/Vol] 0.41 mg/dL Normal 0.00-1.30 [facility] Comment on above: Performed By: #### L 505.5000, L501.9100, L501.2450, L700.6800, L100.0100, L500.4050 #### [facility] [address] [place], [address] BUN/CRE 9.7 RATIO Low 10-20 [facility] Comment on above: Performed By: #### L 505.5000, L501.9100, L501.2450, L700.6800, L100.0100, L500.4050 #### [facility] [address] [place], [address] Calcium [Mass/Vol] 11.2 mg/dL High 7.6-11.0 [facility] Comment on above: Performed By: #### L 505.5000, L501.9100, L501.2450, L700.6800, L100.0100, L500.4050 #### [facility] [address] [place], [address] Chloride [Moles/Vol] 105 mmol/L Normal 98-108 [facility] Comment on above: Performed By: #### L 505.5000, L501.9100, L501.2450, L700.6800, L100.0100, L500.4050 #### [facility] [address] [place], [address] CO2 [Moles/Vol] 25.0 mmol/L Normal 21.0-32.0 [facility] Comment on above: Performed By: #### L 505.5000, L501.9100, L501.2450, L700.6800, L100.0100, L500.4050 #### [facility] [address] [place], [address] Creatinine [Mass/Vol] 0.82 mg/dL Normal 0.70-1.[address] [facility] Comment on above: Performed By: #### L 505.5000, L501.9100, L501.2450, L700.6800, L100.0100, L500.4050 #### [facility] [address] [place], [address] ECRCL 106.76 ml/min Normal 50-250 [facility] Comment on above: Performed By: #### L 505.5000, L501.9100, L501.2450, L700.6800, L100.0100, L500.4050 #### [facility] [address] [place], [address] GAP 11 Normal 5-15 [facility] Comment on above: Performed By: #### L 505.5000, L501.9100, L501.2450, L700.6800, L100.0100, L500.4050 #### [facility] [address] [place], [address] GFR/1.73 sq M.predicted among non-blacks MDRD (S/P/Bld) [Vol rate/Area] 97 mL/min/{1.73_m2} Normal >60 [facility] Comment on above: Result Comment: mL/m in/1.73m2 CKD-EPI Creatinine Equation (2020) Performed By: #### L 505.5000, L501.9100, L501.2450, L700.6800, L100.0100, L500.4050 #### [facility] [address] [place], [address] Globulin (S) [Mass/Vol] 3.2 g/dL Normal 2.2-4.2 [facility] Comment on above: Performed By: #### L 505.5000, L501.9100, L501.2450, L700.6800, L100.0100, L500.4050 #### [facility] [address] [place], [address] Glucose [Mass/Vol] 177 mg/dL High 70-99 [facility] Comment on above: Performed By: #### L 505.5000, L501.9100, L501.2450, L700.6800, L100.0100, L500.4050 #### [facility] [address] [place], [address] Potassium [Moles/Vol] 4.7 mmol/L Normal 3.3-5.[address] [facility] Comment on above: Performed By: #### L 505.5000, L501.9100, L501.2450, L700.6800, L100.0100, L500.4050 #### [facility] [address] [place], [address] Sodium [Moles/Vol] 141 mmol/L Normal 133-145 [facility] Comment on above: Performed By: #### L 505.5000, L501.9100, L501.2450, L700.6800, L100.0100, L500.4050 #### [facility] [address] [place], [address] T PROT 7.9 g/dL Normal 5.9-8.4 [facility] Comment on above: Performed By: #### L 505.5000, L501.9100, L501.2450, L700.6800, L100.0100, L500.4050 #### [facility] [address] [place], [address] Urea nitrogen [Mass/Vol] 8 mg/dL Normal 4-19 [facility] Comment on above: Performed By: #### L 505.5000, L501.9100, L501.2450, L700.6800, L100.0100, L500.4050 #### [facility] [address] [place], [address] Emergency Department Summary on 02-06-2025 Emergency Department Summary [facility] Medical Records Department [address] [place] [address] Emergency Department Summary 02/06/25 MR#: [id number] Acct: [id number] Name: JOSHUA CHOUDHARY Rep #: [id number] : 1995 30 From: Juan Tapia MD [...] states she wants her panic to stop. [facility] Medical History Anxiety disorder Cannabis use disorder [...] 0 current occupational status: employed current occupation: [employer] Smoking Status: Never smoker Smokeless [...] Upon repea (more content not included)... Normal [facility] Eosinophil percentageOrdered By: Juan Tapia on 02-06-2025 Eosinophils/100 WBC (Bld) 0.0 % 0-5 [facility] Erythrocyte distribution wid th ratioOrdered By: Juan Tapia on 02-06-2025 Erythrocyte distribution width (RBC) [Ratio] 13.2 % 11.6-14.6 [facility] Erythrocyte distribution wid th standard deviationOrdered By: Juan Tapia on 02-06-2025 Erythrocyte distribution width (RBC) [Ratio] 41.2 fl 35.1-43.9 [facility] Glomerular filtration rate ( GFR) estimation/1.73 sq m using serum, plasma, or whole bOrdered By: Juan Tapia on 02-06-2025 GFR/1.73 sq M.predicted among non-blacks MDRD (S/P/Bld) [Vol rate/Area] 97 mL/min/{1.73_m2} >60 [facility] Comment on above: mL/min/1.73m2 CKD-EP I Creatinine Equation (2020) Hematocrit Auto (Bld) [Volum e fraction]Ordered By: Juan Tapia on 02-06-2025 Hematocrit (Bld) [Volume fraction] 40.4 % 37-47 [facility] Hemoglobin measurementOrdere d By: Juan Tapia on 02-06-2025 Hemoglobin (Bld) [Mass/Vol] 13.5 g/dL 12.0-15.0 [facility] Immature granulocytes/100 WB C Auto (Bld)Ordered By: Juan Tapia on 02-06-2025 Immature granulocytes/100 WBC (Bld) 0.800 % 0.0-0.9 [facility] Comment on above: IG% - Immature Granu locytes (promyelocytes, myelocytes and metamyelocytes) > 1% indicates that a LEFT SHIFT is Present. Laboratory - Chemistry and C hemistry - challengeOrdered By: Juan Tapia on 02-06-2025 AST [Catalytic activity/Vol] 27 U/L <32 [facility] Lipaseon 02-06-2025 Lipase [Catalytic activity/Vol] 20 U/L Normal 13-75 [facility] Comment on above: Result Comment: Jose porter note: LIPASE revised reference range effective 23. New Lipase methodology. Expected to produce lower values than the previous assay method. NEW Reference Range: 13 - 75 U/L Performed By: #### L 505.5000, L501.9100, L501.2450, L700.6800, L100.0100, L500.4050 #### [facility] [address] [facility] [place], [address] Lipase measurementOrdered By : Juan Tapia on 02-06-2025 Lipase [Catalytic activity/Vol] 20 U/L 13-75 [facility] Comment on above: Please note:LIPASE r evised reference range effective 23. New Lipase methodology. Expected to produce lower values than the previous assay method. NEW Reference Range: 13 - 75 U/L MCV (mean corpuscular volume ) determinationOrdered By: Juan Tapia on 02-06-2025 MCV (RBC) [Entitic vol] 85.8 fL 81-99 [facility] Mean corpuscular hemoglobin (MCH) determinationOrdered By: Juan Tapia on 02-06-2025 MCH (RBC) [Entitic mass] 28.7 pg 27.0-32.0 [facility] Mean corpuscular hemoglobin concentration (MCHC) determinationOrdered By: Juan Tapia on 02-06-2025 MCHC (RBC) [Mass/Vol] 33.4 g/dL 32-[address] [facility] Mean platelet volume determi nationOrdered By: Juan Tapia on 02-06-2025 Platelet mean volume (Bld) [Entitic vol] 11.3 fL 6.2-12.0 [facility] Monocyte percentageOrdered B y: Juan Tapia on 02-06-2025 Monocytes/100 WBC (Bld) 2.3 % 0-10 [facility] Neutrophil percentageOrdered By: Juan Tapia on 02-06-2025 Neutrophils/100 WBC (Bld) 82.8 % High 47-70 [facility] No Panel InformationOrdered By: Juan Tapia on 02-06-2025 Urine Buprenorphine Qualitative Negative < 200 ng/mL [facility] Urine Oxycodone Screen Negative < 100 ng/mL [facility] Nucleated red blood cell per centageOrdered By: Juan Tapia on 02-06-2025 Nucleated RBC/100 WBC (Bld) [Ratio] 0 % 0-5 [facility] Platelet countOrdered By: Luisito Tapia on 02-06-2025 Platelets (Bld) [#/Vol] 324 10*3/uL 150-450 [facility] Potassium measurement (mass/ volume)Ordered By: Juan Tapia on 02-06-2025 Potassium (Unsp spec) [Mass/Vol] 4.7 mmol/L 3.3-5.1 [facility] ,Serum,hCG Quali.on 02-06-2025 HCG, SERUM QUAL Negative Normal [facility] Comment on above: Performed By: #### L 505.5000, L501.9100, L501.2450, L700.6800, L100.0100, L500.4050 #### [facility] [place], [address] Quantitative urine opiates m easurementOrdered By: Juan Tapia on 02-06-2025 Opiates Ql (U) Negative < 300 ng/mL [facility] RBC Auto (Bld) [#/Vol]Ordere d By: Juan Tapia on 02-06-2025 RBC (Bld) [#/Vol] 4.71 10*6/uL 4.2-5.4 [facility] Screening urine fentanyl cally surementOrdered By: Juan Tapia on 02-06-2025 fentaNYL Screen Ql (U) Negative [facility] Serum beta-hCG test, qualita tiveOrdered By: Juan Tapia on 02-06-2025 Beta HCG ( test) Ql Negative [facility] Serum creatinine measurement (mass/volume)Ordered By: Juan Tapia on 02-06-2025 Creatinine [Mass/Vol] 0.82 mg/dL 0.70-1.[address] [facility] Serum globulin measurementOr dered By: Juan Tapia on 02-06-2025 Globulin (S) [Mass/Vol] 3.2 g/dL 2.2-4.2 [facility] Serum glucose measurement (m ass/volume)Ordered By: Juan Tapia on 02-06-2025 Glucose [Mass/Vol] 177 mg/dL High 70-99 [facility] Serum or plasma alanine peterson otransferase (ALT) measurementOrdered By: Juan Tapia on 02-06-2025 ALT [Catalytic activity/Vol] 23 U/L <35 [facility] Serum or plasma albumin prakash urement (mass/volume)Ordered By: Juan Tapia on 02-06-2025 Albumin [Mass/Vol] 4.7 g/dL 3.5-5.0 [facility] Serum or plasma albumin/glob ulin mass ratioOrdered By: Juan Tapia on 02-06-2025 Albumin/Globulin [Mass ratio] 1.5 {ratio} 0.9-2.4 [facility] Serum or plasma alkaline frandy sphatase measurementOrdered By: Juan Tapia on 02-06-2025 ALP [Catalytic activity/Vol] 65 U/L 35-104 [facility] Serum or plasma calcium prakash urement (mass/volume)Ordered By: Juan Tapia on 02-06-2025 Calcium [Mass/Vol] 11.2 mg/dL High 7.6-11.0 [facility] Serum or plasma ethanol prakash urement (mass/volume)Ordered By: Juan Tapia on 02-06-2025 Ethanol [Mass/Vol] mg/dL <10.1 [facility] Comment on above: Hemolysis Present, R esults may be affected.This test is for medical purposes only. The legal definition of intoxication varies according to local law. Serum or plasma urea nitroge n measurement (mass/volume)Ordered By: Juan Tapia on 02-06-2025 Urea nitrogen [Mass/Vol] 8 mg/dL 4-19 [facility] Sodium levelOrdered By: Juan Tapia on 02-06-2025 Sodium [Moles/Vol] 141 mmol/L 133-145 [facility] Total proteinOrdered By: Tessy Tapia on 02-06-2025 Protein [Mass/Vol] 7.9 g/dL 5.9-8.4 [facility] Urine Drug Screen (VISTA)on 02-06-2025 AMPHETAMINES Negative Normal <1000 ng/mL [facility] Comment on above: Performed By: #### L 505.5000, L501.9100, L501.2450, L700.6800, L100.0100, L500.4050 #### [facility] [address] [place], [place], [id number] BARBITIURATES Negative Normal < 200 ng/mL [facility] Comment on above: Performed By: #### L 505.5000, L501.9100, L501.2450, L700.6800, L100.0100, L500.4050 #### [facility] [address] [place], [address] (259) BENZODIAZIPINE Negative Normal < 200 ng/mL [facility] Comment on above: Performed By: #### L 505.5000, L501.9100, L501.2450, L700.6800, L100.0100, L500.4050 #### [facility] [address] [place], [facility] BUP Ur Drug Scr Negative Normal < 200 ng/mL [facility] Comment on above: Performed By: #### L 505.5000, L501.9100, L501.2450, L700.6800, L100.0100, L500.4050 #### [facility] [address] [place], [facility] COCAINE Negative Normal < 300 ng/mL [facility] Comment on above: Performed By: #### L 505.5000, L501.9100, L501.2450, L700.6800, L100.0100, L500.4050 #### [facility] [address] [place], [facility] Fentanyl Negative Normal [facility] Comment on above: Performed By: #### L 505.5000, L501.9100, L501.2450, L700.6800, L100.0100, L500.4050 #### [facility] [address] [place], [facility] METHADONE Negative Normal < 300 ng/mL [facility] Comment on above: Performed By: #### L 505.5000, L501.9100, L501.2450, L700.6800, L100.0100, L500.4050 #### [facility] [address] [place], [facility] OPIATES Negative Normal < 300 ng/mL [facility] Comment on above: Performed By: #### L 505.5000, L501.9100, L501.2450, L700.6800, L100.0100, L500.4050 #### [facility] [address] [place] [address] OXYCODONE Negative Normal < 100 ng/mL [facility] Comment on above: Performed By: #### L 505.5000, L501.9100, L501.2450, L700.6800, L100.0100, L500.4050 #### [facility] [address] [place], [place], [id number] PCP Negative Normal < 25 ng/mL [facility] Comment on above: Performed By: #### L 505.5000, L501.9100, L501.2450, L700.6800, L100.0100, L500.4050 #### [facility] [address] [place], [place], [id number] THC Positive Normal < 50 ng/mL [facility] Comment on above: Result Comment: If c onfirmation testing is needed, a separate order will be required to send out testing to the reference laboratory. Performed By: #### L 505.5000, L501.9100, L501.2450, L700.6800, L100.0100, L500.4050 #### [facility] [address] [place], [place], [id number] Urine benzodiazepine levelOr dered By: Juan Tapia on 02-06-2025 Benzodiazepines Ql (U) Negative < 200 ng/mL [facility] Urine cocaine levelOrdered B y: Juan Tapia on 02-06-2025 Cocaine Ql (U) Negative < 300 ng/mL [facility] Urine sicqh-4-ltbnripnivitln abinol (THC) measurementOrdered By: Juan Tpaia on 02-06-2025 Cannabinoids Screen Ql (U) Positive < 50 ng/mL [facility] Comment on above: If confirmation test ing is needed, a separate order will be required to send out testing to the reference laboratory. Urine phencyclidine (PCP) de tectionOrdered By: Juan Tapia on 02-06-2025 Phencyclidine Ql (U) Negative < 25 ng/mL [facility] White blood cell (WBC) count Ordered By: Juan Tapia on 02-06-2025 WBC (Bld) [#/Vol] 14.8 10*3/uL High 4.4-11.0 [facility] ALBUMIN/CREATININE RATIO, UR INEon 11-09-2024 Albumin Unsp time DL <= 20 mg/L (U) [Mass/Time] 16.8 mg/L [facility] Albumin/Creatinine (U) [Mass ratio] 4 mg/g NINF - 30 mg/g [facility] Comment on above: Adult Male and [...] 476.6 mg/dL High 42.2 - 237.9 mg/dL [facility] Interpretation and review of laboratory results Abnormal [facility] ALBUMIN/CREATININE RATIO, UR INEon 11-08-2024 Albumin Unsp time DL <= 20 mg/L (U) [Mass/Time] 16.8 mg/L Normal [facility] Comment on above: Order Comment: Speci men Type: URINE SPECIMEN Ordering Facility: [facility] Address: [address] [place] [address] Performed By: #### U ACR #### [facility] CLIA [id number] [address] [facility] Albumin/Creatinine (U) [Mass ratio] 4 mg/g Normal <30 [facility] Comment on above: Order Comment: Speci men Type: URINE SPECIMEN Ordering Facility: [facility] Address: [address] [place] [address] Result Comment: Adul t Male and Female Nephrotic Criteria: <30 mg/g is considered normal to mildly increased 30-300 mg/g is considered moderately increased >300 mg/g is considered severely increased KDIGO. (2013). KDIGO 2012 Clinical Practice Guideline for the Evaluation and Management of Chronic Kidney Disease. Official Journal of the International Society of Nephrology, 3(1), 1-150. Performed By: #### U ACR #### [facility] CLIA [id number] [address] [place] [address] [place] Creatinine (U) [Mass/Vol] 476.6 mg/dL High 42.2-237.9 [facility] Comment on above: Order Comment: Speci men Type: URINE SPECIMEN Ordering Facility: [facility] Address: [facility] [place] [address] Performed By: #### U ACR #### [facility] [place] [facility] CLIA [id number] [address] [place] CNOVon 11-08-2024 CNOV Office Visit (AGFAMP LE) JOSHUA CHOUDHARY ([id number]) 1995 F Date Time Provider Department 11/08/24 1:40 PM LESA SOLER During your visit today, we recorded the following information about you: Temperature Pulse Blood pressure Weight 98.1 degrees 69/minute 112/70 88 kg Height 1.676 m Lesa Soler APRN.BUTTERMAKER 11/27/2024 1:47 PM Signed Subjective Joshua Choudhary is a 29 year old female here today for diabetes follow-up. I reviewed past medical, surgical, social, and family histories today and updated chart. Allergies, chronic medications, and supplements were also reviewed. HPI Patient has type 2 diabetes, well controlled with diet She has changed her diet a lot Saw the instructional services specialist Made a big difference Was able to develop hunger again and more frequently Still losing weight No more diarrhea Increased movement Going to college - [employer] Walking a lot more Doing EMDR therapy [...] HENT: Head: Normocephalic and atraumatic. Mouth/Throat: Lips: [place]. Eyes: General: Lids are normal. Extraocular Movements: [...] (more content not included)... Normal [facility] C[facility]ane [facility] JOSHUA CHOUDHARY ([id number]) 1995 F Date Time Provider Department 11/08/24 LESA SOLER During your visit today, we recorded the following information about you: Gloria Evans MA 11/08/2024 2:16 PM Signed Per pt. She is requesting number to apex sent to my chart. Gloria vEans MA Allergies As of Date: 11/08/2024 (No [...] by GLORIA EVANS on 11/08/24 [facility] CNOVon 11-03-2024 CNOV Office Visit (UCWSTR ) JOSHUA CHOUDHARY ([id number]) 1995 F Date Time Provider Department 11/03/24 11:00 AM KEELY REDDY [facility] During your visit today, we recorded the following information about you: Temperature Pulse Respiration Blood pressure 99.6 degrees 77/minute 18/minute 105/71 Weight 90.7 kg Keely Reddy APRN.CNP 11/03/2024 11:56 AM Signed This note was created using NoteWriter. Subjective Joshuatd Choudhary is a 29 year old female. [...] history is provided by the patient. No foreign language stenographer was used. URI She complains of cough. [...] murmur he (more content not included)... Normal [facility] COVID AND INFLUENZA A/B AND RSV PCR, ROUTINEon 11-03-2024 SARS-CoV-2 (COVID-19) RNA MURALI+probe Ql (Unsp spec) SARS-COV-2 (AGENT OF COVID-19) RNA: Not detected INFLUENZA A RNA: Detected INFLUENZA B RNA: Not detected RESPIRATORY SYNCYTIAL VIRUS (RSV) RNA: Not detected Abnormal [facility] Comment on above: Performed By: #### 5 8410-2 #### [facility] CLIA [id number] [address] [place] [address] [place] STREP A MOLECULAR (POC)on Procedural Control Valid [facility] Strep A (POCT) Negative Negative [facility] Basic Metabolic Profile (BMP )on 09-30-2024 BUN/CRE 8.9 RATIO Low 10-20 [facility] Comment on above: Performed By: #### L 505.5000, L501.9100, L501.2450, L700.6800, L100.0100, L500.4050 #### [facility] [address] [place], [address] CA,Total 11.1 mg/dL High 8.5-10.1 [facility] Comment on above: Performed By: #### L 505.5000, L501.9100, L501.2450, L700.6800, L100.0100, L500.4050 #### [facility] [address] [place], [address] Chloride [Moles/Vol] 109 mmol/L High 98-107 [facility] Comment on above: Performed By: #### L 505.5000, L501.9100, L501.2450, L700.6800, L100.0100, L500.4050 #### [facility] [address] [place], [address] CO2 [Moles/Vol] 22.0 mmol/L Normal 21.0-32.0 [facility] Comment on above: Performed By: #### L 505.5000, L501.9100, L501.2450, L700.6800, L100.0100, L500.4050 #### [facility] [address] [place], [address] Creatinine [Mass/Vol] 1.01 mg/dL Normal 0.55-1.[address] [facility] Comment on above: Result Comment: The validity of the calculated GFR GFRAA in patients over 70 years has not been determined. Clinical correlation is essential. Performed By: #### L 505.5000, L501.9100, L501.2450, L700.6800, L100.0100, L500.4050 #### [facility] [address] [place], [address] ECRCL 91.22 ml/min Normal [facility] Comment on above: Performed By: #### L 505.5000, L501.9100, L501.2450, L700.6800, L100.0100, L500.4050 #### [facility] [address] [place], [address] EST GFR - AA 82 mL/min Normal >60 [facility] Comment on above: Result Comment: Afri can Bruneian GFR Calc Performed By: #### L 505.5000, L501.9100, L501.2450, L700.6800, L100.0100, L500.4050 #### [facility] [address] [place], [address] GAP 10 Normal 5-15 [facility] Comment on above: Performed By: #### L 505.5000, L501.9100, L501.2450, L700.6800, L100.0100, L500.4050 #### [facility] [address] [place], [address] GFR/1.73 sq M.predicted among non-blacks MDRD (S/P/Bld) [Vol rate/Area] 68 mL/min/{1.73_m2} Normal >60 [facility] Comment on above: Result Comment: Non- GFR Calc Performed By: #### L 505.5000, L501.9100, L501.2450, L700.6800, L100.0100, L500.4050 #### [facility] [address] [place], [address] Glucose [Mass/Vol] 167 mg/dL High 74-106 [facility] Comment on above: Result Comment: Fast ing Glucose result greater than or equal to 126 mg/dL suggests DIABETES MELLITUS per A.D.A. criteria. Performed By: #### L 505.5000, L501.9100, L501.2450, L700.6800, L100.0100, L500.4050 #### [facility] [address] [place], [address] Potassium [Moles/Vol] 3.7 mmol/L Normal 3.5-5.[address] [facility] Comment on above: Result Comment: Slig ht Hemolysis, Result may be falsely increased. Performed By: #### L 505.5000, L501.9100, L501.2450, L700.6800, L100.0100, L500.4050 #### [facility] [address] [place], [address] Sodium [Moles/Vol] 140 mmol/L Normal 136-145 [facility] Comment on above: Performed By: #### L 505.5000, L501.9100, L501.2450, L700.6800, L100.0100, L500.4050 #### [facility] [address] [place], [address] Urea nitrogen [Mass/Vol] 9 mg/dL Normal 7-18 [facility] Comment on above: Performed By: #### L 505.5000, L501.9100, L501.2450, L700.6800, L100.0100, L500.4050 #### [facility] [address] [place], [address] Emergency Department Summary on 09-30-2024 Emergency Department Summary [facility] Medical Records Department [address] [place] [address] Emergency Department Summary 09/30/24 MR#: [id number] Acct: [id number] Name: JOSHUA CHOUDHARY Rep #: [id number] : 1995 29 From: Christos Esparza MD PCP: Lesa Soler [employer]Katlyn Status:REG ER Location: ED HPI History of [...] Dr. Mendez. January 2024 for dehydration ) [facility] Medical History Anxiety disorder Cannabis use disorder [...] 0 current occupational status: employed current occupation: [employer] Smoking Status: Never smoker Smokeless [...] Oxygen Del[employer] (more content not included)... Normal [facility] hCG Titer Quant., Serumon HCG QUANT. < 1 Normal 1-3 [facility] Comment on above: Result Comment: hCG levels with Gestational Age Gestational Age hCG mIU/mL (IU/L) 0.2 - 1 week 5 - 50 1-2 weeks 50 - 500 2-3 weeks 100 - 5000 3-4 weeks 500 - 00025 4-5 weeks 1000 - 55950 5-6 weeks 63310 - 100,000 6-8 weeks 71291 - 200,000 2-3 months 37923 - 100,000 Performed By: #### L 505.5000, L501.9100, L501.2450, L700.6800, L100.0100, L500.4050 #### [facility] [address] [place], [address] [facility] 09-19-2024 [place] Telephone (GIULIANA) JOSHUA CHOUDHARY ([id number]) 1995 F Date Time Provider Department 09/19/24 [...] Patient may choose to take fish oil [id number]. Recheck cholesterol in 6 months. Thank you Lesa Soler APRN.BUTTERMAKER Allergies As of Date: 09/19/2024 (No Known Allergies) Date Reviewed: 09/11/2024 Reviewed by: Staci Givens RD - Fully Assessed Reason for Visit: Results [95] Cmt: labs Problem List As Of Date 09/19/2024 Noted Resolved Abdominal pain, epigastric [R10.13] 05/16/2017 Gallstones [K80.20] 08/28/2017 RUQ pain [R10.11] 09/28/2017 Type 2 diabetes mellitus without complication, *09/03/2024 Encounter Status:Closed by MADELYN DENT on 09/20/24 Normal [facility] CBC panel Auto (Bld)on 09-11 Erythrocyte distribution width (RBC) [Ratio] 13.8 % 11.5 - 15.0 % [facility] Hematocrit (Bld) [Volume fraction] 44.9 % 36.0 - 46.0 % [facility] Hemoglobin (Bld) [Mass/Vol] 14.8 g/dL 11.5 - 15.5 g/dL [facility] Interpretation and review of laboratory results Abnormal [facility] MCH (RBC) [Entitic mass] 29.4 pg 26.0 - 34.[address] [facility] MCHC (RBC) [Mass/Vol] 33.0 g/dL 30.5 - 36.0 g/dL [facility] MCV (RBC) [Entitic vol] 89.1 fL 80.0 - 100.[address] [facility] Nucleated RBC (Bld) [#/Vol] NINF [facility] Platelet mean volume (Bld) [Entitic vol] 11.8 fL 9.0 - 12.[address] [facility] Platelets (Bld) [#/Vol] 243 10*3/uL [facility] RBC (Bld) [#/Vol] 5.04 10*6/uL 3.90 - 5.20 m/uL [facility] WBC (Bld) [#/Vol] 11.48 10*3/uL High [facility] Erythrocyte distribution width (RBC) [Ratio] 13.8 % Normal 11.5-15.0 [facility] Comment on above: Order Comment: Speci men Type: BLOOD SPECIMEN Ordering Facility: [facility] Address: [address] [place] [address] Performed By: #### 5 8410-2 #### [facility] CLIA [id number] [address] [place] [address] [place] Hematocrit (Bld) [Volume fraction] 44.9 % Normal 36.0-46.0 [facility] Comment on above: Order Comment: Speci men Type: BLOOD SPECIMEN Ordering Facility: [facility] Address: [address] [place] [address] Performed By: #### 5 8410-2 #### [facility] CLIA [id number] [address] [place] [address] [place] Hemoglobin (Bld) [Mass/Vol] 14.8 g/dL Normal 11.5-15.5 [facility] Comment on above: Order Comment: Speci men Type: BLOOD SPECIMEN Ordering Facility: [facility] Address: [address] [place] [address] Performed By: #### 5 8410-2 #### [facility] CLIA [id number] [address] [place] [address] [place] MCH (RBC) [Entitic mass] 29.4 pg Normal 26.0-34.0 [facility] Comment on above: Order Comment: Speci men Type: BLOOD SPECIMEN Ordering Facility: [facility] Address: [address] [place] [address] Performed By: #### 5 8410-2 #### [facility] CLIA [id number] [address] [place] [address] [place] MCHC (RBC) [Mass/Vol] 33.0 g/dL Normal 30.5-36.0 [facility] Comment on above: Order Comment: Speci men Type: BLOOD SPECIMEN Ordering Facility: [facility] Address: [address] [place] [address] Performed By: #### 5 8410-2 #### [facility] CLIA [id number] [address] [place] [address] [place] MCV (RBC) [Entitic vol] 89.1 fL Normal 80.0-100.0 [facility] Comment on above: Order Comment: Speci men Type: BLOOD SPECIMEN Ordering Facility: [facility] Address: [address] [place] [address] Performed By: #### 5 8410-2 #### [facility] CLIA [id number] [address] [place] [address] [place] Nucleated RBC (Bld) [#/Vol] 10*3/uL Normal <0.01 [facility] Comment on above: Order Comment: Speci men Type: BLOOD SPECIMEN Ordering Facility: [facility] Address: [address] [place] [address] Performed By: #### 5 8410-2 #### [facility] CLIA [id number] [address] [place] [address] [place] Platelet mean volume (Bld) [Entitic vol] 11.8 fL Normal 9.0-12.7 [facility] Comment on above: Order Comment: Speci men Type: BLOOD SPECIMEN Ordering Facility: [facility] Address: [address] [place] [address] Performed By: #### 5 8410-2 #### [facility] CLIA [id number] [address] [place] [address] [place] Platelets (Bld) [#/Vol] 243 10*3/uL Normal 150-400 [facility] Comment on above: Order Comment: Speci men Type: BLOOD SPECIMEN Ordering Facility: [facility] Address: [address] [place] [address] Performed By: #### 5 8410-2 #### [facility] CLIA [id number] [address] [place] [address] [place] RBC (Bld) [#/Vol] 5.04 10*6/uL Normal 3.90-5.20 [facility] Comment on above: Order Comment: Speci men Type: BLOOD SPECIMEN Ordering Facility: [facility] Address: [address] [place] [address] Performed By: #### 5 8410-2 #### [facility] CLIA [id number] [address] [place] [address] [place] WBC (Bld) [#/Vol] 11.48 10*3/uL High 3.70-11.00 [facility] Comment on above: Order Comment: Speci men Type: BLOOD SPECIMEN Ordering Facility: [facility] Address: [address] [place] [address] Performed By: #### 5 8410-2 #### [facility] CLIA [id number] [address] [place] [address] [place] Comprehensive metabolic 2000 panelon 09-11-2024 Albumin [Mass/Vol] 4.5 g/dL 3.9 - 4.9 g/dL [facility] ALP [Catalytic activity/Vol] 62 U/L 34 - 123 U/L [facility] ALT [Catalytic activity/Vol] 26 U/L 7 - 38 U/L [facility] Anion gap [Moles/Vol] 11 mmol/L 8 - 15 mmol/L [facility] AST [Catalytic activity/Vol] 24 U/L 13 - 35 U/L [facility] Bilirubin [Mass/Vol] 0.3 mg/dL 0.2 - 1 .3 mg/dL [facility] Calcium [Mass/Vol] 10.5 mg/dL High 8.5 - 10. 2 mg/dL [facility] Chloride [Moles/Vol] 105 mmol/L 98 - 10 7 mmol/L [facility] CO2 [Moles/Vol] 26 mmol/L 22 - 30 mmol/L [facility] Creatinine [Mass/Vol] 0.88 mg/dL 0.58 - 0.96 mg/dL [facility] GFR/1.73 sq M.predicted among non-blacks MDRD (S/P/Bld) [Vol rate/Area] 90 mL/min/{1.73_m2} - PINF [facility] Comment on above: Estimated Glomerular Filtration [...] [Mass/Vol] 86 mg/dL 74 - 99 mg/dL [facility] Comment on above: The [place] Diabete [...] [Moles/Vol] 4.2 mmol/L 3.7 - 5.1 mmol/L [facility] Protein [Mass/Vol] 7.2 g/dL 6.3 - 8.0 g/dL [facility] Sodium [Moles/Vol] 142 mmol/L 136 - 144 mmol/L [facility] Urea nitrogen [Mass/Vol] 5 mg/dL Low 7 - 21 mg/dL [facility] Albumin [Mass/Vol] 4.5 g/dL Normal 3.9-4.9 [facility] Comment on above: Order Comment: Speci men Type: BLOOD SPECIMEN Ordering Facility: [facility] Address: [address] [place] [address] Performed By: #### 3 016-3, 81343-0, 3040-3, 95132-2 #### [facility] CLIA [id number] [address] [place] [address] [place] ALP [Catalytic activity/Vol] 62 U/L Normal 34-123 [facility] Comment on above: Order Comment: Speci men Type: BLOOD SPECIMEN Ordering Facility: [facility] Address: [address] [place] [address] Performed By: #### 3 016-3, 22118-9, 3040-3, 38372-6 #### [facility] CLIA [id number] [address] [place] [address] [place] ALT [Catalytic activity/Vol] 26 U/L Normal 7-38 [facility] Comment on above: Order Comment: Speci men Type: BLOOD SPECIMEN Ordering Facility: [facility] Address: [address] [place] [address] Performed By: #### 3 016-3, 00623-6, 3040-3, 35389-0 #### [facility] CLIA [id number] [address] [place] [address] [place] Anion gap [Moles/Vol] 11 mmol/L Normal 8-15 [facility] Comment on above: Order Comment: Speci men Type: BLOOD SPECIMEN Ordering Facility: [facility] Address: [address] [place] [address] Performed By: #### 3 016-3, 56100-4, 3040-3, 67504-7 #### [facility] CLIA [id number] [address] [place] [address] [place] AST [Catalytic activity/Vol] 24 U/L Normal 13-35 [facility] Comment on above: Order Comment: Speci men Type: BLOOD SPECIMEN Ordering Facility: [facility] Address: [address] [place], [place] [address] Performed By: #### 3 016-3, 92137-7, 3040-3, 49339-5 #### [facility] CLIA [id number] [address] [place] [address] [place] Bilirubin [Mass/Vol] 0.3 mg/dL Normal 0.2-1.3 [facility] Comment on above: Order Comment: Speci men Type: BLOOD SPECIMEN Ordering Facility: [facility] Address: [address] [place] [address] Performed By: #### 3 016-3, 51745-6, 3040-3, 95951-6 #### [facility] CLIA [id number] [address] [place] [address] [place] Calcium [Mass/Vol] 10.5 mg/dL High 8.5-10.2 [facility] Comment on above: Order Comment: Speci men Type: BLOOD SPECIMEN Ordering Facility: [facility] Address: [address] [place] [address] Performed By: #### 3 016-3, 26067-3, 3040-3, 05098-4 #### [facility] CLIA [id number] [address] [place] [address] [place] Chloride [Moles/Vol] 105 mmol/L Normal 98-107 [facility] Comment on above: Order Comment: Speci men Type: BLOOD SPECIMEN Ordering Facility: [facility] Address: [address] [place] [address] Performed By: #### 3 016-3, 72487-4, 3040-3, 80838-3 #### [facility] CLIA [id number] [address] [place] [address] [place] CO2 [Moles/Vol] 26 mmol/L Normal 22-30 [facility] Comment on above: Order Comment: Speci men Type: BLOOD SPECIMEN Ordering Facility: [facility] Address: [address] [place] [address] Performed By: #### 3 016-3, 38138-7, 3040-3, 44687-7 #### [facility] CLIA [id number] [address] [place] [address] [place] Creatinine [Mass/Vol] 0.88 mg/dL Normal 0.58-0.96 [facility] Comment on above: Order Comment: Speci men Type: BLOOD SPECIMEN Ordering Facility: [facility] Address: [address] [place] [address] Performed By: #### 3 016-3, 65944-4, 3040-3, 86180-3 #### [facility] CLIA [id number] [address] [place] [address] [place] Creatinine and Glomerular filtration rate.predicted panel (S/P/Bld) 90 mL/min/1.73m??? Normal >=60 [facility] Comment on above: Order Comment: Yelena collins Type: BLOOD SPECIMEN Ordering Facility: [facility] Address: [address] [place] [address] Result Comment: Ely mated Glomerular Filtration Rate [...] accurately reflect actual GFR. Performed By: #### 3 016-3, 10512-7, 0-3, 52017-8 #### [facility] CLIA [id number] [address] [place] [address] [place] Glucose [Mass/Vol] 86 mg/dL Normal 74-99 [facility] Comment on above: Order Comment: Jarethi men Type: BLOOD SPECIMEN Ordering Facility: [facility] Address: [address] [place] [address] Result Comment: The [place] Diabetes Association (ADA) [...] Diabetes Care. 2016.39(Suppl 1). Performed By: #### 3 016-3, 01963-3, 3040-3, 16310-8 #### [facility] CLIA [id number] [address] [place] [address] [place] Potassium [Moles/Vol] 4.2 mmol/L Normal 3.7-5.1 [facility] Comment on above: Order Comment: Speci men Type: BLOOD SPECIMEN Ordering Facility: [facility] Address: [address] [place] [address] Performed By: #### 3 016-3, 28497-7, 3, #### [facility] CLIA [id number] [address] [place] [address] [place] Protein [Mass/Vol] 7.2 g/dL Normal 6.3-8.0 [facility] Comment on above: Order Comment: Speci men Type: BLOOD SPECIMEN Ordering Facility: [facility] Address: [address] [place] [address] Performed By: #### 3 016-3, 67335-7, 3040-3, 89836-8 #### [facility] CLIA [id number] [address] [place] [address] [place] Sodium [Moles/Vol] 142 mmol/L Normal 136-144 [facility] Comment on above: Order Comment: Speci men Type: BLOOD SPECIMEN Ordering Facility: [facility] Address: [address] [place] [address] Performed By: #### 3 016-3, 07531-3, 3040-3, 84774-5 #### [facility] CLIA [id number] [address] [place] [address] [place] Urea nitrogen [Mass/Vol] 5 mg/dL Low 7-21 [facility] Comment on above: Order Comment: Yelena collins Type: BLOOD SPECIMEN Ordering Facility: [facility] Address: [address] [place] [address] Performed By: #### 3 016-3, 65697-0, 3040-3, 83325-0 #### [facility] CLIA [id number] [address] [place] [address] [place] HbA1c (Bld)on 09-11-2024 Average glucose Estimated from glycated hemoglobin (Bld) [Mass/Vol] 111 mg/dL [facility] Comment on above: eAG: (Estimated aver age glucose) is a calculated value from HgbA1c and is wireless sales representative of the average blood glucose level in the last 2-3 month period. HbA1c (Bld) [Mass fraction] 5.5 % 4.3 - 5.6 % [facility] Comment on above: [place] Diabetes As sociation guidelines indicate that patients with HgbA1c in the range 5.7-6.4% are at increased risk for development of diabetes, and intervention by lifestyle modification may be beneficial. HgbA1c greater or equal to 6.5% is considered diagnostic of diabetes. [facility] Average glucose Estimated from glycated hemoglobin (Bld) [Mass/Vol] 111 mg/dL Normal [facility] Comment on above: Order Comment: Yelena collins Type: BLOOD SPECIMEN Ordering Facility: [facility] Address: [address] [place] [address] Result Comment: eAG: (Estimated average glucose) is a calculated value from HgbA1c and is wireless sales representative of the average blood glucose level in the last 2-3 month period. Performed By: #### 5 5454-3 #### [facility] CLIA [id number] [address] [place] [address] [place] HbA1c (Bld) [Mass fraction] 5.5 % Normal 4.3-5.6 [facility] Comment on above: Order Comment: Yelena collins Type: BLOOD SPECIMEN Ordering Facility: [facility] Address: [address] [place] [address] Result Comment: [place] Diabetes Association guidelines indicate that patients with HgbA1c in the range 5.7-6.4% are at increased risk for development of diabetes, and intervention by lifestyle modification may be beneficial. HgbA1c greater or equal to 6.5% is considered diagnostic of diabetes. Performed By: #### 5 5454-3 #### [facility] CLIA [id number] [address] [place] [address] [place] LIPASEon 09-11-2024 Lipase [Catalytic activity/Vol] 33 U/L 16 - 61 U/L [facility] Lipase SerPl-cCncon 09-11-20 24 Lipase [Catalytic activity/Vol] 33 U/L Normal 16- [facility] Comment on above: Order Comment: Yelena dennis Type: BLOOD SPECIMEN Ordering Facility: [facility] Address: [address] [place] [address] Performed By: #### 3 016-3, 07587-4, 3040-3, 39165-2 #### [facility] CLIA [id number] [address] [place] [address] [place] Lipase [Catalytic activity/V ol]on 09-11-2024 Interpretation and review of laboratory results Normal [facility] Lipid 1996 panelon 4 Cholesterol [Mass/Vol] 208 mg/dL High NINF - 200 mg/dL [facility] Comment on above: <200 mg/dL, Desirabl e 200-239 mg/dL, Borderline high >239 mg/dL, High Cholesterol in HDL [Mass/Vol] 27 mg/dL Low 39 - PINF mg/dL [facility] Comment on above: 40-59 mg/dL, Accepta ble >59 mg/dL, High: Negative risk factor for coronary heart disease <40 mg/dL, Low: Positive risk factor for coronary heart disease Cholesterol in LDL [Mass/Vol] 120 mg/dL High NINF - 100 mg/dL [facility] Comment on above: <100 mg/dL, Optimal 100-129 mg/dL, Near optimal/above optimal 130-159 mg/dL, Borderline high 160-189 mg/dL, High >189 mg/dL, Very high Secondary prevention optimal LDL Cholesterol levels are recommended to be < 70 mg/dL Cholesterol in LDL/Cholesterol in HDL [Mass ratio] 4.44 {ratio} High NINF - 2.54 [facility] Comment on above: Reference: 1. National Cholesterol Education Program ATP III Guideline At-A-Glance Quick Desk Reference: National Heart, Lung, and Blood Johnson. National Institutes of Health. 2001: NIH Publication No. 01-3305. 2. An International Atherosclerosis Society position paper: global recommendations for the management of dyslipidemia: executive summary, Atherosclerosis. 2014: 232(2):410-413. Cholesterol in VLDL [Mass/Vol] 61 mg/dL High NINF - 30 mg/dL [facility] Cholesterol non HDL [Mass/Vol] 181 mg/dL High NINF - 130 mg/dL [facility] Comment on above: <130 mg/dL, Optimal 130-159 mg/dL, Near optimal/above optimal 160-189 mg/dL, Borderline high 190-219 mg/dL, High >219 mg/dL, Very high Secondary prevention optimal non HDL Cholesterol levels are recommended to be <100 mg/dL Cholesterol.total/Cho lesterol in HDL [Mass ratio] 7.70 {ratio} High NINF - 5.10 [facility] Fasting Time [address] [facility] Triglyceride [Mass/Vol] 307 mg/dL High NINF - 150 mg/dL [facility] Comment on above: <150 mg/dL, Normal 150-199 mg/dL, Borderline high 200-499 mg/dL, High >499 mg/dL, Very high Cholesterol [Mass/Vol] 208 mg/dL High <200 [facility] Comment on above: Order Comment: Speci men Type: BLOOD SPECIMEN Ordering Facility: [facility] Address: [address] [place] [address] Result Comment: <200 mg/dL, Desirable 200-239 mg/dL, Borderline high >239 mg/dL, High Performed By: #### 3 016-3, 24702-3, 3040-3, 41847-5 #### [facility] CLIA [id number] [address] [place] Cholesterol in HDL [Mass/Vol] 27 mg/dL Low >39 [facility] Comment on above: Order Comment: Yelena collins Type: BLOOD SPECIMEN Ordering Facility: [facility] Address: [address] [place] [address] Result Comment: 40-5 9 mg/dL, Acceptable >59 mg/dL, High: Negative risk factor for coronary heart disease <40 mg/dL, Low: Positive risk factor for coronary heart disease Performed By: #### 3 016-3, 75284-8, 3040-3, 28202-6 #### [facility] CLIA [id number] [address] [place] [address] [place] Cholesterol in LDL [Mass/Vol] 120 mg/dL High <100 [facility] Comment on above: Order Comment: Yelena collins Type: BLOOD SPECIMEN Ordering Facility: [facility] Address: [address] [place] [address] Result Comment: <100 mg/dL, Optimal 100-129 mg/dL, Near optimal/above optimal 130-159 mg/dL, Borderline high 160-189 mg/dL, High >189 mg/dL, Very high Secondary prevention optimal LDL Cholesterol levels are recommended to be < 70 mg/dL Performed By: #### 3 016-3, 34715-1, 3040-3, 18747-9 #### [facility] CLIA [id number] [address] [place] [address] [place] Cholesterol in LDL/Cholesterol in HDL [Mass ratio] 4.44 {ratio} High <2.54 [facility] Comment on above: Order Comment: Yelena dennis Type: BLOOD SPECIMEN Ordering Facility: [facility] Address: [address] [place] [address] Result Comment: Chanel paulino: 1. National Cholesterol Education Program ATP III Guideline At-A-Glance Quick Desk Reference: National Heart, Lung, and Blood Johnson. National Institutes of Health. 2001: NIH Publication No. 01-3305. 2. An International Atherosclerosis Society position paper: global recommendations for the management of dyslipidemia: executive summary, Atherosclerosis. 2014: 232(2):410-413. Performed By: #### 3 016-3, 29449-6, 3040-3, 79544-2 #### [facility] CLIA [id number] [address] [place] [address] [place] Cholesterol in VLDL [Mass/Vol] 61 mg/dL High <30 [facility] Comment on above: Order Comment: Speci men Type: BLOOD SPECIMEN Ordering Facility: [facility] Address: [address] [place] [address] Performed By: #### 3 016-3, 22656-2, 3040-3, 18150-9 #### [facility] CLIA [id number] [address] [place] [address] [place] Cholesterol non HDL [Mass/Vol] 181 mg/dL High <130 [facility] Comment on above: Order Comment: Speci men Type: BLOOD SPECIMEN Ordering Facility: [facility] Address: [address] [place] [address] Result Comment: <130 mg/dL, Optimal 130-159 mg/dL, Near optimal/above optimal 160-189 mg/dL, Borderline high 190-219 mg/dL, High >219 mg/dL, Very high Secondary prevention optimal non HDL Cholesterol levels are recommended to be <100 mg/dL Performed By: #### 3 016-3, 36229-0, 3040-3, 81421-2 #### [facility] CLIA [id number] [address] [place] [address] [place] Cholesterol.total/Cho lesterol in HDL [Mass ratio] 7.70 {ratio} High <5.10 [facility] Comment on above: Order Comment: Jarethi men Type: BLOOD SPECIMEN Ordering Facility: [facility] Address: [address] [place] [address] Performed By: #### 3 016-3, 78522-3, 3040-3, 96540-1 #### [facility] CLIA [id number] [place] FASTING TIME 12 hrs Normal [facility] Comment on above: Order Comment: Speci men Type: BLOOD SPECIMEN Ordering Facility: [facility] Address: [address] [place] [address] Performed By: #### 3 016-3, 48469-4, 3040-3, 45362-7 #### [facility] CLIA [id number] [address] [place] [address] [place] Triglyceride [Mass/Vol] 307 mg/dL High <150 [facility] Comment on above: Order Comment: Speci men Type: BLOOD SPECIMEN Ordering Facility: [facility] Address: [address] [place] [address] Result Comment: <150 mg/dL, Normal 150-199 mg/dL, Borderline high 200-499 mg/dL, High >499 mg/dL, Very high Performed By: #### 3 016-3, 36866-9, 3040-3, 52547-1 #### [facility] CLIA [id number] [address] [place] [address] [place] No Panel Informationon 09-11 Interpretation and review of laboratory results Abnormal [facility] THYROID STIMULATING HORMONEo n 09-11-2024 TSH Qn 0.917 m[IU]/L [facility] Comment on above: If the patient [...] Interpretation and review of laboratory results Normal [facility] TSH SerPl-aCncon 09-11-2024 TSH Qn 0.917 m[IU]/L Normal 0.270-4.20 0 [facility] Comment on above: Order Comment: Speci men Type: BLOOD SPECIMEN Ordering Facility: [facility] Address: [address] [place] [address] Result Comment: If t he patient is [...] the . Thyroid, 2017:27:3:315-389. Performed By: #### 3 016-3, 31873-3, 3040-3, 40327-7 #### [facility] CLIA [id number] [address] [place] [address] [place] CNOVon 09-03-2024 CNOV Office Visit (TJ LOYOLA) MAHENDRAJOSHUA ALBERT ([id number]) 1995 F Date Time Provider Department 09/03/24 1:20 PM LESA SOLER During your visit today, we recorded the following information about you: Temperature Pulse Blood pressure Weight 98.1 degrees 78/minute 108/62 92.1 kg Height 1.676 m Lesa Soler, POWDER LOADER.BUTTERMAKER 09/22/2024 12:58 AM Signed Subjective Joshua Choudhary is a 29 year old female here today for establish care. I reviewed past medical, surgical, social, and family histories today and updated chart. Allergies, chronic medications, and supplements were also reviewed. HPI Moved back to [place] about 1 year ago Needs PCP Diagnosed [...] Insatiable hunger for sugar, craves candy Saw DROP FORGER last week - Dr Monique Pap test completed Looking in to fertility treatment for 6 years - tried for good 2 years, still not using BC Right fallopian tube removed age 17 Depression - she is seeing counselor and psychiatrist, Dr Marybel Ortiz [address] Counselor Joshua Zazueta at [facility], will be starting EDMR Hx childhood trauma CPSD responses Having official testing for ADHD Panic disorder Has been focusing on mental health this whole past year Hasn't been able to work this past year She was hospitalized - [facility] x 1 week Just started new [...] (more content not included)... Normal [facility] CNOVon 08-28-2024 CNOV Office Visit (OBGYST ) JOSHUA CHOUDHARY ([id number]) 1995 F Date Time Provider Department 08/28/24 [...] skin retraction. Allergies and current medication updated:Yes Pan Reclaim Processor present EXAM: BP 108/71 Pulse 72 Ht 5' 6 (1.68m) Wt 208 lb (94.3kg) LMP 06/28/2024 BMI 33.59 kg/(m2). GENERAL: In no apparent distress HEENT: Normocephalic, BREAST: soft, non-tender, symmetric, no dominant mass, normal nipple-areolar complex, no lymphadenopathy, and no nipple discharge CHEST: Normal inspiratory effort ABDOMEN: soft, non-tender, and no masses PELVIC: external genitalia normal, normal Bartholin's glands, urethra, [place]'s glands, no vulvar lesions, no cervical lesions, [...] discussed with the Patient or Patient's Authorized Automotive Dismantler. As applicable, any other physician, advance practice provider, medical student, or other health professional student that will be observing or involved in the sensitive examination for educational or training purposes was discussed with the Patient or Authorized Automotive Dismantler. The Patient or Authorized Automotive Dismantler has agreed to proceed with the sensitive [...] [E28.2] Primary female infertility [N97.9] Order(s):PAP TEST [[id number]] Order #: [id number]. #:[id number] CONSULT TO INFERTILITY CLINIC [[id number]] Order #: [id number]: 1 FUTURE Prescriptions as of 08/28/2024 - [...] for Encounter Date Provider Department Center 08/28/2024 [id number] MONIQUE [facility] (more content not included)... Normal [facility] HIGH RISK HUMAN PAPILLOMA WEN (HPV), PCR FOR DETECTION AND GENOTYPINGon 08-28-2024 HPV 16 Ag Ql (Unsp spec) Not detected Normal Not detected [facility] Comment on above: Order Comment: Speci men Type: BLOOD SPECIMEN Ordering Facility: [facility] Address: [address] [place] [address] Performed By: #### 5 8410-2 #### [facility] CLIA [id number] [address] [place] [address] [place] HPV 18 Ag Ql (Unsp spec) Not detected Normal Not detected [facility] Comment on above: Order Comment: Speci men Type: BLOOD SPECIMEN Ordering Facility: [facility] Address: [address] [place] [address] Performed By: #### 5 8410-2 #### [facility] CLIA [id number] [address] [place] [address] [place] HPV 31+33+35+39+45+51+52+ 56+58+59+66+68 DNA MURALI+probe Ql (Cvx) Not detected Normal Not detected [facility] Comment on above: Order Comment: Speci men Type: BLOOD SPECIMEN Ordering Facility: [facility] Address: [address] [place] [address] Result Comment: High Risk HPV Other Type includes HPV types 31, 33, 35, 39, 45, 51, 52, 56, 58, 59, 66 and 68. Performed By: #### 5 8410-2 #### [facility] CLIA [id number] [address] [place] [address] [place] PAP TESTon 08-28-2024 ADEQUACY Satisfactory for interpretation. Normal [facility] Comment on above: Order Comment: Speci men Type: FLUID SPECIMEN Ordering Facility: [facility] Address: [address] [place] [address] Performed By: #### L [id number] #### [facility] CLIA [id number] [address] [place] [address] STATES OF [facility] CLIA [id number] [address] [place] [address] [place] CASE REPORT Normal [facility] Comment on above: Order Comment: Speci men Type: FLUID SPECIMEN Ordering Facility: [facility] Address: [address] [place] [address] Result Comment: Gyne cologic Cytology Report Case: [id number] Authorizing Provider: Mario Monique MD Collected: 08/28/2024 10:22 AM Ordering Location: OB/Gynecology Received: 08/28/2024 12:10 PM First Screen: Keisha, Keely, CT, ASCP Specimen: Pap Test, ThinPrep, Cervix Performed By: #### L [id number] #### [facility] CLIA [id number] [address] [place] [address] [place] [facility] CLIA [id number] [address] [place] [address] [place] CLINICAL HISTORY, CYTOLOGY, DROP FORGER Routine Exam Normal [facility] Comment on above: Order Comment: Speci men Type: FLUID SPECIMEN Ordering Facility: [facility] Address: [address] [place] [address] Performed By: #### L [id number] #### [facility] CLIA [id number] [address] [place] [address] [place] [facility] CLIA [id number] [facility] [place] [address] [place] FINAL PERFORMING LAB Normal [facility] Comment on above: Order Comment: Speci men Type: FLUID SPECIMEN Ordering Facility: [facility] Address: [address] [place] [address] Result Comment: Tech nical component, inspector advanced composite screening performed at [facility], [address] [place] [id number] CLIA# [id number] Diagnostic interpretation performed at [facility], [address] [place], [place] [id number] CLIA# [id number] Rental Coordinator: Wu Scott M.D. Performed By: #### L [id number] #### [facility] CLIA [id number] [address] [place] [address] [place] [facility] CLIA [id number] [address] [place] [address] [place] INTERPRETATION, CYTOLOGY, DROP FORGER Normal [facility] Comment on above: Order Comment: Speci men Type: FLUID SPECIMEN Ordering Facility: [facility] Address: [address] [place] [address] Result Comment: Nega tive for intraepithelial lesion or malignancy. Performed By: #### L [id number] #### [facility] CLIA [id number] [address] [place] [address] [place] [facility] CLIA [id number] [address] [place] [address] [place] LMP 06/28/2024 Normal [facility] Comment on above: Order Comment: Speci men Type: FLUID SPECIMEN Ordering Facility: [facility] Address: [address] [place] [address] Performed By: #### L [id number] #### [facility] CLIA [id number] [address] [place] [address] LAB CLIA [id number] [address] [place] [address] [place] PAP DISCLAIMER COMMENT The Pap Smear is a screening test for cervical cancer. False negative results occur with all screening tests, emphasizing the need for rescreening at recommended intervals, and clinical correlation. Normal [facility] Comment on above: Order Comment: Speci men Type: FLUID SPECIMEN Ordering Facility: [facility] Address: [address] [place] [address] Performed By: #### L [id number] #### [facility] CLIA [id number] [address] [place] [address] LAB CLIA [id number] [address] [place] [address] [place] PAP FRONT DESK AUXILIARY COMMENT This specimen has be en analyzed by the ThinPrep Imaging System, an automated imaging and review system, which assists the laboratory in evaluating cells on ThinPrep Pap tests. Following automated imaging, selected zelaya from every slide are reviewed by a inspector advanced composite. Normal [facility] Comment on above: Order Comment: Speci men Type: FLUID SPECIMEN Ordering Facility: [facility] Address: [address] [place] [address] Performed By: #### L [id number] #### [facility] CLIA [id number] [address] [place] [address] LAB CLIA [id number] [address] [place] [address] [place] Abdomen/Pelvis W IV Cont ONL Yon 07-15-2024 Abdomen/Pelvis W IV Cont ONLY [facility] [address] [place] [address] Abdomen/Pelvis W IV Cont ONLY MR#: [id number] Acct: [id number] Name: JOSHUA CHOUDHARY Rep #: [id number] : 1995 F 29 From: Braden Golden MD PCP: Care Physician,No Primary Status: REG ER Study: Abdomen/Pelvis W IV Cont ONLY Date of Exam: Exam# [id number] Ordering Dr: Oliver Marley DO :[id number] STUDY: CT ABDOMEN AND PELVIS WITH CONTRAST [...] Oliver Marley DO; No Primary Care Physician [employer] Professional: Signed Normal [facility] CBC W/Diff, Automatedon 07-02 Absolute Lymph 4.18 X10 3/uL Normal 0.83-4.51 [facility] Comment on above: Performed By: #### L 505.5000, L501.9100, L501.2450, L700.6800, L100.0100, L500.4050 #### [facility] [address] [place], [address] Absolute Neut 17.5 X10 3/uL High 2.0-7.7 [facility] Comment on above: Performed By: #### L 505.5000, L501.9100, L501.2450, L700.6800, L100.0100, L500.4050 #### [facility] [address] [place], [address] Basophils/100 WBC (Bld) 0.4 % Normal 0-1 [facility] Comment on above: Performed By: #### L 505.5000, L501.9100, L501.2450, L700.6800, L100.0100, L500.4050 #### [facility] [address] [place], [address] Eosinophils/100 WBC (Bld) 0.2 % Normal 0-5 [facility] Comment on above: Performed By: #### L 505.5000, L501.9100, L501.2450, L700.6800, L100.0100, L500.4050 #### [facility] [address] [place], [address] Erythrocyte distribution width (RBC) [Ratio] 13.2 % Normal 11.6-14.6 [facility] Comment on above: Performed By: #### L 505.5000, L501.9100, L501.2450, L700.6800, L100.0100, L500.4050 #### [facility] [address] [place], [address] Hematocrit (Bld) [Volume fraction] 44.1 % Normal 37-47 [facility] Comment on above: Performed By: #### L 505.5000, L501.9100, L501.2450, L700.6800, L100.0100, L500.4050 #### [facility] [address] [place], [address] Hemoglobin (Bld) [Mass/Vol] 15.4 g/dL High 12.0-15.0 [facility] Comment on above: Performed By: #### L 505.5000, L501.9100, L501.2450, L700.6800, L100.0100, L500.4050 #### [facility] [address] [place], [address] IG% 0.700 Normal 0.0-0.9 [facility] Comment on above: Result Comment: IG% - Immature Granulocytes (promyelocytes, myelocytes and metamyelocytes) > 1% indicates that a LEFT SHIFT is Present. Performed By: #### L 505.5000, L501.9100, L501.2450, L700.6800, L100.0100, L500.4050 #### [facility] [address] [place], [address] Lymphocytes/100 WBC (Bld) 17.8 % Low 19-41 [facility] Comment on above: Performed By: #### L 505.5000, L501.9100, L501.2450, L700.6800, L100.0100, L500.4050 #### [facility] [address] [place], [address] MCH (RBC) [Entitic mass] 29.7 pg Normal 27.0-32.0 [facility] Comment on above: Performed By: #### L 505.5000, L501.9100, L501.2450, L700.6800, L100.0100, L500.4050 #### [facility] [address] [place], [address] MCHC (RBC) [Mass/Vol] 34.9 g/dL Normal 32-[address] [facility] Comment on above: Performed By: #### L 505.5000, L501.9100, L501.2450, L700.6800, L100.0100, L500.4050 #### [facility] [address] [place], [address] MCV (RBC) [Entitic vol] 85.0 fL Normal 81-99 [facility] Comment on above: Performed By: #### L 505.5000, L501.9100, L501.2450, L700.6800, L100.0100, L500.4050 #### [facility] [address] [place], [address] Monocytes/100 WBC (Bld) 6.3 % Normal 0-10 [facility] Comment on above: Performed By: #### L 505.5000, L501.9100, L501.2450, L700.6800, L100.0100, L500.4050 #### [facility] [address] [place], [address] Neutrophils/100 WBC (Bld) 74.6 % High 47-70 [facility] Comment on above: Performed By: #### L 505.5000, L501.9100, L501.2450, L700.6800, L100.0100, L500.4050 #### [facility] [address] [place], [address] Nucleated RBC (Bld) [#/Vol] 0 10*3/uL Normal 0-5 [facility] Comment on above: Performed By: #### L 505.5000, L501.9100, L501.2450, L700.6800, L100.0100, L500.4050 #### [facility] [address] [place], [address] Platelet mean volume (Bld) [Entitic vol] 11.9 fL Normal 6.2-12.0 [facility] Comment on above: Performed By: #### L 505.5000, L501.9100, L501.2450, L700.6800, L100.0100, L500.4050 #### [facility] [address] [place], [address] Platelets (Bld) [#/Vol] 279 10*3/uL Normal 150-450 [facility] Comment on above: Performed By: #### L 505.5000, L501.9100, L501.2450, L700.6800, L100.0100, L500.4050 #### [facility] [address] [place], [address] RBC (Bld) [#/Vol] 5.19 10*6/uL Normal 4.2-5.4 [facility] Comment on above: Performed By: #### L 505.5000, L501.9100, L501.2450, L700.6800, L100.0100, L500.4050 #### [facility] [address] [place], [address] RDW SD 40.6 fl Normal 35.1-43.9 [facility] Comment on above: Performed By: #### L 505.5000, L501.9100, L501.2450, L700.6800, L100.0100, L500.4050 #### [facility] [address] [place], [address] WBC (Bld) [#/Vol] 23.5 10*3/uL High 4.4-11.0 [facility] Comment on above: Performed By: #### L 505.5000, L501.9100, L501.2450, L700.6800, L100.0100, L500.4050 #### [facility] [address] [place], [address] Comprehensive Metabolic Prof ilon 07-15-2024 Albumin [Mass/Vol] 4.4 g/dL Normal 3.2-5.0 [facility] Comment on above: Performed By: #### L 505.5000, L501.9100, L501.2450, L700.6800, L100.0100, L500.4050 #### [facility] [address] [place], [address] Albumin/Globulin [Mass ratio] 1.2 {ratio} Normal 0.9-2.4 [facility] Comment on above: Performed By: #### L 505.5000, L501.9100, L501.2450, L700.6800, L100.0100, L500.4050 #### [facility] [address] [place], [address] ALK P 56 U/L Normal 45-117 [facility] Comment on above: Performed By: #### L 505.5000, L501.9100, L501.2450, L700.6800, L100.0100, L500.4050 #### [facility] [address] [place], [address] ALT [Catalytic activity/Vol] 47 U/L Normal 13-56 [facility] Comment on above: Performed By: #### L 505.5000, L501.9100, L501.2450, L700.6800, L100.0100, L500.4050 #### [facility] [address] [place], [address] AST [Catalytic activity/Vol] 31 U/L Normal 15-37 [facility] Comment on above: Performed By: #### L 505.5000, L501.9100, L501.2450, L700.6800, L100.0100, L500.4050 #### [facility] [address] [place], [address] Bilirubin [Mass/Vol] 2.20 mg/dL High 0.20-1.00 [facility] Comment on above: Result Comment: For patients on eltrombopag therapy, use of Dimension Floral TBIL is not recommended. Performed By: #### L 505.5000, L501.9100, L501.2450, L700.6800, L100.0100, L500.4050 #### [facility] [address] [place], [address] BUN/CRE 19.3 RATIO Normal 10-20 [facility] Comment on above: Performed By: #### L 505.5000, L501.9100, L501.2450, L700.6800, L100.0100, L500.4050 #### [facility] [address] [place], [address] CA,Total 10.9 mg/dL High 8.5-10.1 [facility] Comment on above: Performed By: #### L 505.5000, L501.9100, L501.2450, L700.6800, L100.0100, L500.4050 #### [facility] [address] [place], [address] Chloride [Moles/Vol] 101 mmol/L Normal 98-107 [facility] Comment on above: Performed By: #### L 505.5000, L501.9100, L501.2450, L700.6800, L100.0100, L500.4050 #### [facility] [address] [place], [address] CO2 [Moles/Vol] 29.0 mmol/L Normal 21.0-32.0 [facility] Comment on above: Performed By: #### L 505.5000, L501.9100, L501.2450, L700.6800, L100.0100, L500.4050 #### [facility] [address] [place], [address] Creatinine [Mass/Vol] 0.99 mg/dL Normal 0.55-1.[address] [facility] Comment on above: Result Comment: The validity of the calculated GFR GFRAA in patients over 70 years has not been determined. Clinical correlation is essential. Performed By: #### L 505.5000, L501.9100, L501.2450, L700.6800, L100.0100, L500.4050 #### [facility] [address] [place], [place], [id number] (381 ECRCL 94.64 ml/min Normal [facility] Comment on above: Performed By: #### L 505.5000, L501.9100, L501.2450, L700.6800, L100.0100, L500.4050 #### [facility] [address] [place], [address] EST GFR - AA 84 mL/min Normal >60 [facility] Comment on above: Result Comment: Afri can Br[place]ian GFR Calc Performed By: #### L 505.5000, L501.9100, L501.2450, L700.6800, L100.0100, L500.4050 #### [facility] [address] [place], [address] GAP 6 Normal 5-15 [facility] Comment on above: Performed By: #### L 505.5000, L501.9100, L501.2450, L700.6800, L100.0100, L500.4050 #### [facility] [address] [place], [address] GFR/1.73 sq M.predicted among non-blacks MDRD (S/P/Bld) [Vol rate/Area] 70 mL/min/{1.73_m2} Normal >60 [facility] Comment on above: Result Comment: Non- GFR Calc Performed By: #### L 505.5000, L501.9100, L501.2450, L700.6800, L100.0100, L500.4050 #### [facility] [address] [place], [address] Globulin (S) [Mass/Vol] 3.8 g/dL Normal 2.2-4.2 [facility] Comment on above: Performed By: #### L 505.5000, L501.9100, L501.2450, L700.6800, L100.0100, L500.4050 #### [facility] [address] [place], [address] Glucose [Mass/Vol] 119 mg/dL High 74-106 [facility] Comment on above: Result Comment: Fast ing Glucose result from 100 to 125 mg/dL suggests IMPAIRED HOMEOSTASIS per A.D.A. criteria. Performed By: #### L 505.5000, L501.9100, L501.2450, L700.6800, L100.0100, L500.4050 #### [facility] [address] [place], [address] Potassium [Moles/Vol] 3.0 mmol/L Low 3.5-5.[address] [facility] Comment on above: Performed By: #### L 505.5000, L501.9100, L501.2450, L700.6800, L100.0100, L500.4050 #### [facility] [address] [place], [address] Sodium [Moles/Vol] 136 mmol/L Normal 136-145 [facility] Comment on above: Performed By: #### L 505.5000, L501.9100, L501.2450, L700.6800, L100.0100, L500.4050 #### [facility] [address] [place], [address] T PROT 8.2 g/dL Normal 6.4-8.2 [facility] Comment on above: Performed By: #### L 505.5000, L501.9100, L501.2450, L700.6800, L100.0100, L500.4050 #### [facility] [address] [place], [address] Urea nitrogen [Mass/Vol] 19 mg/dL High 7-18 [facility] Comment on above: Performed By: #### L 505.5000, L501.9100, L501.2450, L700.6800, L100.0100, L500.4050 #### [facility] [address] [place], [address] Emergency Department Summary on 07-15-2024 Emergency Department Summary [facility] Medical Records Department [address] [place] [address] Emergency Department Summary 07/15/24 MR#: [id number] Acct: [id number] Name: JOSHUA CHOUDHARY Rep #: [id number] : 1995 29 From: Oliver Marley DO PCP: Care Physician,No Primary Status:DEP ER Location: ED HPI History of Present Illness Chief Complaint: Nausea/Vomiting Detail of Chief Complaint: Nausea and vomiting Informant: patient Narrative Narrative: Patient presents to the emergency department with complaint of nausea and vomiting. Patient states that she traveled to [facility] 3 days ago and drank [...] that she is a daily marijuana smoker. [facility] Medical History PCOS (polycystic ovarian syndrome) [...] 0 current occupational status: employed current occupation: [employer] Smoking Status: Never smoker Smokeless [...] well d (more content not included)... Normal [facility] Lactic Acidon 07-15-2024 Lactate [Moles/Vol] 1.2 mmol/L Normal 0.4-1.9 [facility] Comment on above: Order Comment: Y Performed By: #### L 505.5000, L501.9100, L501.2450, L700.6800, L100.0100, L500.4050 #### [facility] [address] [place], [address] Lipaseon 07-15-2024 Lipase [Catalytic activity/Vol] 43 U/L Normal 13-75 [facility] Comment on above: Result Comment: Jose porter note: LIPASE revised reference range effective 23. New Lipase methodology. Expected to produce lower values than the previous assay method. NEW Reference Range: 13 - 75 U/L Performed By: #### L 505.5000, L501.9100, L501.2450, L700.6800, L100.0100, L500.4050 #### [facility] [address] [place], [address] ,Serum,hCG Quali.on 07-15-2024 HCG, SERUM QUAL Negative Normal [facility] Comment on above: Performed By: #### L 505.5000, L501.9100, L501.2450, L700.6800, L100.0100, L500.4050 #### [facility] [address] [place], [address] Urinalysis, Completeon 07-15 AMORPHOUS 1+ URATE Normal [facility] Comment on above: Order Comment: COLLE CTOR TO SPECIFY Performed By: #### L 505.5000, L501.9100, L501.2450, L700.6800, L100.0100, L500.4050 #### [facility] [address] [place], [address] EPI,SQUAMOUS 0-5 SEEN Normal 5-10 [facility] Comment on above: Order Comment: COLLE CTOR TO SPECIFY Performed By: #### L 505.5000, L501.9100, L501.2450, L700.6800, L100.0100, L500.4050 #### [facility] [address] [place], [address] RBC 5-10 SEEN Normal 0-5 [facility] Comment on above: Order Comment: COLLE CTOR TO SPECIFY Performed By: #### L 505.5000, L501.9100, L501.2450, L700.6800, L100.0100, L500.4050 #### [facility] [address] [place], [address] WBC 0-5 SEEN Normal 0-5 [facility] Comment on above: Order Comment: COLLE CTOR TO SPECIFY Performed By: #### L 505.5000, L501.9100, L501.2450, L700.6800, L100.0100, L500.4050 #### [facility] [address] [place], [address] BACTERIA 0 SEEN Normal None Seen [facility] Comment on above: Order Comment: COLLE CTOR TO SPECIFY Performed By: #### L 505.5000, L501.9100, L501.2450, L700.6800, L100.0100, L500.4050 #### [facility] [address] [place], [address] Mucus Ql (Urine sed) 0 SEEN Normal [facility] Comment on above: Order Comment: XI CTOR TO SPECIFY Performed By: #### L 505.5000, L501.9100, L501.2450, L700.6800, L100.0100, L500.4050 #### [facility] [address] [place], [address] Glucose Glucometer (BldC) [M ass/Vol]Ordered By: Ry James on 03-30-2023 Glucose [Mass/Vol] 121 mg/dL 74-106 [facility] Comment on above: MANAGEMENT OF PATIEN T CARE PER NURSING PROTOCOL Absolute lymphocyte countOrd ered By: Andres Loyola on 03-29-2023 Lymphocytes Auto (Unsp spec) [#/Vol] 4.08 10*3/uL 0.83-4.51 [facility] Amorphous sediment detection in urine sediment by light microscopyOrdered By: Andres Loyola on 03-29-2023 Amorphous sediment LM Ql (Urine sed) 3+ [facility] Basophil percentageOrdered B y: Andres Loyola on 03-29-2023 Basophil percentage 0 SEEN /hpf 0-5 [facility] Basophils/100 WBC (Bld) 0.4 % 0-1 [facility] Eosinophils/100 WBC (Bld) 0.4 % 0-5 [facility] Neutrophils (Bld) [#/Vol] 11.2 10*3/uL 2.0-7.7 [facility] Neutrophils/100 WBC (Bld) 67.3 % 47-70 [facility] WBC (Bld) [#/Vol] 16.6 10*3/uL 4.4-11.0 [facility] Bilirubin Test strip Ql (U)O rdered By: Andres Loyola on 03-29-2023 Bilirubin Ql (U) Negative Negative [facility] Blood erythrocytes count (nu mber/volume)Ordered By: Andres Loyola on 03-29-2023 RBC (Bld) [#/Vol] 4.76 10*6/uL 4.2-5.4 [facility] Blood hemoglobin measurement (mass/volume)Ordered By: Andres Loyola on 03-29-2023 Hemoglobin (Bld) [Mass/Vol] 13.7 g/dL 12.0-15.0 [facility] Blood lymphocytes/100 leukoc ytesOrdered By: Andres Loyola on 03-29-2023 Lymphocytes/100 WBC (Bld) 24.7 % 19-41 [facility] Blood monocytes/100 leukocyt esOrdered By: Andres Loyola on 03-29-2023 Monocytes/100 WBC (Bld) 6.5 % 0-10 [facility] Blood platelet mean volumeOr dered By: Andres Loyola on 03-29-2023 Platelet mean volume (Bld) [Entitic vol] 11.4 fL 6.2-12.0 [facility] Determination of erythrocyte mean corpuscular volume (MCV)Ordered By: Andres Loyola on 03-29-2023 MCV (RBC) [Entitic vol] 83.8 fL 81-99 [facility] Hematocrit Auto (Bld) [Volum e fraction]Ordered By: Andres Loyola on 03-29-2023 Hematocrit (Bld) [Volume fraction] 39.9 % 37-47 [facility] Ketones Test strip Ql (U)Ord ered By: Andres Loyola on 03-29-2023 Ketones Ql (U) 15 mg/dl Negative [facility] Laboratory - Hematology and Cell countsOrdered By: Andres Loyola on 03-29-2023 Erythrocyte distribution width (RBC) [Entitic vol] 41.5 fL 35.1-43.9 [facility] Erythrocyte distribution width (RBC) [Ratio] 13.7 % 11.6-14.6 [facility] Immature granulocytes/100 WBC (Bld) 0.700 % 0.0-0.9 [facility] Comment on above: IG% - Immature Granu locytes (promyelocytes, myelocytes and metamyelocytes) > 1% indicates that a LEFT SHIFT is Present. MCH (RBC) [Entitic mass] 28.8 pg 27.0-32.0 [facility] Nucleated RBC/100 WBC (Bld) [Ratio] 0 % 0-5 [facility] MCHC Auto (RBC) [Mass/Vol]Or dered By: Andres Loyola on 03-29-2023 MCHC (RBC) [Mass/Vol] 34.3 g/dL 32-[address] [facility] Mucus LM Ql (Urine sed)Order ed By: Andres Loyola on 03-29-2023 Mucus Ql (Urine sed) 0 SEEN /hpf [facility] Nitrite Test strip Ql (U)Ord ered By: Andres Loyola on 03-29-2023 Nitrite Ql (U) Negative Negative [facility] Platelets bldOrdered By: Rufino Loyola on 03-29-2023 Platelets (Bld) [#/Vol] 308 10*3/uL 150-450 [facility] Protein Test strip Ql (U)Ord ered By: Andres Loyola on 03-29-2023 Protein Ql (U) 30 mg/dl Negative [facility] Squamous epithelial cells de tection in urine sediment by light microscopyOrdered By: Andres Loyola on 03-29-2023 Epithelial cells.squamous LM Ql (Urine sed) 0 SEEN /hpf 5-10 [facility] Urine blood detectionOrdered By: Andres Loyola on 03-29-2023 RBC Ql (U) 25 /ul Negative [facility] RBC Ql (U) 0 SEEN /hpf 0-5 [facility] Urine clarityOrdered By: Rufino Loyola on 03-29-2023 Clarity (U) Sl. Cloudy Clear [facility] Urine color determinationOrd ered By: Andres Loyola on 03-29-2023 Color (U) Yellow Yellow [facility] Urine glucose detectionOrder ed By: Andres Loyola on 03-29-2023 Glucose Ql (U) Normal mg/dl Normal [facility] Urine leukocyte esterase det ection by dipstickOrdered By: Andres Loyola on 03-29-2023 Leukocyte esterase Test strip Ql (U) 25 /ul Negative [facility] Urine pHOrdered By: Andres Loyola on 03-29-2023 pH (U) 5.0 [pH] 5.0 - 8.0 [facility] Urine sediment bacteria coun t by microscopy (number/high power field)Ordered By: Andres Loyola on 03-29-2023 Bacteria LM.HPF (Urine sed) [#/Area] 0 /[HPF] None Seen [facility] Urine specific gravity measu rementOrdered By: Andres Loyola on 03-29-2023 Specific gravity (U) [Rel density] 1.025 1.002-1.03 0 [facility] Urobilinogen Auto test strip Ql (U)Ordered By: Andres Loyola on 03-29-2023 Urobilinogen Ql (U) 1 mg/dl Normal [facility] Basophil percentageOrdered B y: Ry James on 03-28-2023 Chloride [Moles/Vol] 106 mmol/L 98-107 [facility] Glucose [Mass/Vol] 160 mg/dL 74-106 [facility] Comment on above: Fasting Glucose resu lt greater than or equal to 126 mg/dL suggests DIABETES MELLITUS per A.D.A. criteria. Potassium [Moles/Vol] 3.4 mmol/L 3.5-5.[address] [facility] Sodium [Moles/Vol] 138 mmol/L 136-145 [facility] Beta hCG serum qualOrdered B y: Ry James on 03-28-2023 Beta HCG ( test) Ql Negative [facility] Influenza virus A and B and SARS-CoV-2 (COVID-19) Ag panel - Upper respiratory specimOrdered By: Ry James on 03-28-2023 SARS-CoV-2 (COVID-19) RNA MURALI+probe Ql (Resp) [facility] Laboratory - Chemistry and C hemistry - challengeOrdered By: Ry James on 03-28-2023 CO2 [Moles/Vol] 20.0 mmol/L 21.0-32.0 [facility] Urea nitrogen/Creatinine [Mass ratio] 10.2 mg/mg 10-20 [facility] Laboratory - Drug toxicology Ordered By: Ry James on 03-28-2023 Amphetamines Ql (U) Negative <1000 ng/mL [facility] Benzodiazepines Ql (U) Negative < 200 ng/mL [facility] Cannabinoids Screen Ql (U) Positive < 50 ng/mL [facility] Cocaine Ql (U) Negative < 300 ng/mL [facility] Opiates Ql (U) Positive < 300 ng/mL [facility] No Panel InformationOrdered By: Ry James on 03-28-2023 MDMA (Ecstasy) Screen Negative < 500 ng/mL [facility] Urine Barbiturates Screen Negative < 200 ng/mL [facility] Urine Drug Screen Comment [facility] Comment on above: CONFIRMATORY TESTING FOR ALL [...] Urine Methadone Screen Negative < 300 ng/mL [facility] Estimated Creatinine Clearance Calc 71.30 ml/min [facility] Estimated GFR (MDRD) Amer 77 mL/min >60 [facility] Comment on above: GFR Calc Estimated GFR (MDRD) Non-Af Amer 63 mL/min >60 [facility] Comment on above: Non- GFR Calc Ethyl Alcohol Level < 3.0 mg/dL [facility] Comment on above: The serum:whole bloo d ethanol ratio is approximately 1.14and varies slightly with hematocrit. Medical Alcohol reference interval and critical value innon-tolerant individuals; 50 - 100 Impairment 100 Intoxication 100 - 250 Severe Poisoning 250 - 400 Deep/possible fatal coma Serum or plasma calcium prakash urement (mass/volume)Ordered By: Ry James on 03-28-2023 Calcium [Mass/Vol] 11.1 mg/dL 8.5-10.1 [facility] Serum or plasma creatinine m easurement (mass/volume)Ordered By: Ry James on 03-28-2023 Creatinine [Mass/Vol] 1.08 mg/dL 0.55-1.[address] [facility] Comment on above: The validity of the calculated GFR & GFRAA in patients over 70 years has not been determined. Clinical correlation is essential. Serum or plasma urea nitroge n measurement (mass/volume)Ordered By: Ry James on 03-28-2023 Urea nitrogen [Mass/Vol] 11 mg/dL 7-18 [facility] Thin prep Papanicolaou smear with manual screeningOrdered By: Ry James on 03-28-2023 Thin prep Papanicolaou smear with manual screening 12 5-15 [facility] Urine phencyclidine (PCP) de tectionOrdered By: Ry James on 03-28-2023 Phencyclidine Ql (U) Negative < 25 ng/mL [facility] ANES Sehy 10-04-2017 ANES POST HNO ID: [id number] thor: Miugel Andradeervice: AnesthesiologyAuthor Type: AnesthesiologistType: Anesthesia PostOpFiled: 10/04/2017 [...] 2017 : 4:42 PM PAGER/CONTACT #: anesthesia [facility] ANE PREOPon 10-04-2017 ANES PREOP HNO ID: [id number] thor: Miguel Andradeervice: AnesthesiologyAuthor Type: AnesthesiologistType: Anesthesia PreOpFiled: 10/04/2017 12:21 PMNote Text: ANESTHESIOLOGY DAY OF SURGERY NOTESERVICE DATE: 10/04/2017SERVICE TIME:09.21DOB: 1995Procedure(s) (LRB):LAPAROSCOPIC CHOLECYSTECTOMY (N/A)Surgeon(s):Basim SloananEstimated body mass [...] ringers infusion 30 mL/hr INTRAVENOUS CONTINUOUS Basim TGuttmdavid Last Rate: 30 mL/hr at 10/04/17 1023 30 mL/hr at 10/04/17 1023ceFAZolin 2 g in dextrose (iso-osmotic) 100 mL (ANCEF, KEFZOL) 2 gINTRAVENOUS Pre-Op Once Basim Dumont GuttmanAllergies: ALLERGIESNo Known AllergiesDOS EXAM: Adequate NPO status: [...] October 04, 2017 : 12:21 PM CSN: [id number] [facility] BRIEF OP NOTon 10-04-2017 BRIEF OP NOT HNO ID: [id number] thor: Basim Sheridanervice: General SurgeryAuthor Type: PhysicianType: Brief Op NoteFiled: 10/04/2017 2:09 PMNote Text:BRIEF OPERATIVE NOTATION FOR SURGICAL PROCEDURE.Joshua Moscoso 1995 [id number] femaleLOG ID: [id number]/Procedure Date: 10/04/2017Incision/Procedure Start Time: 1:06 PMIncision Close/Procedure End Time: 2:02 PMSurgeon(s)/Proceduralist(s ) and Welt Cutter(s):Surgeon(s) and Role: * Basim Prince - PrimaryPhysician Welt Cutter: Pamela Wall PHYSICIAN:OutpatientDEPT: JUDITH PROVIDER: James POS:[id number] : GeneralASA CLASS: 2 - mildDIAGNOSIS: biliary colic, cholelithiasisPROCEDURE: LAPAROSCOPIC CHOLECYSTECTOMY WITH INTRAOPERATIVE CHOLEANGIOGRAM- 02853-931QVB: 1000EBL: 10Specimens: gtallbladderADDITIONAL DIAGNOSES:FINDINGS: normal IOCCOMPLICATIONS: NonePMHx -PAST MEDICAL HISTORYDiagnosis Date- CholelithiasesCOMORBIDITIES - ObesityPost Op Occurrences - NoneWound Classification - Clean ContaminatedOperative note dictated in the dictation system. - [id number] Prince MD [facility] HISTORY PHYSICALon 201 8 HISTORY PHYSICAL HNO ID: [id number] thor: Basim Vargheseice: General SurgeryAuthor Type: PhysicianType: [...] the nurse and reviewed by me?Nursing Notes:Teresa SortoMARIBELL 09/28/2017 3:21 PM SignedREVIEW OF SYSTEMS: General: [...] pulse 76, height 167.6 cm (5' 6), .4 kg (206 lb). Body mass index is [...] procedure.?Planned Procedure: LAPAROSCOPIC CHOLECYSTECTOMY WITH INTRAOPERATIVECHOLEANGIOGRAM - 05362-467?Planned antibiotic: Ancef 2gm IVPB admissions consultant to OR?SCDs needed - Yes?Welt Cutter Needed - No?Diagnoses: (R10.11) RUQ pain (primary encounter diagnosis)? Basim Prince MD [facility] NURSING PROGon 10-04-2017 NURSING PROG HNO ID: [id number] thor: [place]ie [place]) Suzan Wilson: (none)Author Type: Registered NurseType: Nursing Progress NoteFiled: 10/04/2017 6:57 PMNote Text: Nursing Progress NotePatient Name: Joshua DiazRN: [id number] Location: [place] Surgery/[place] Surgery Daily Note:Pt. States her nausea is gone and feels much better. Pain tolerable menezes/c home and wants to be d/c home.This note was completed by: Jennie Wilson RN [facility] NURSING PROG HNO ID: [id number] thor: [place]ie [place]) Suzan Wilson: (none)Author Type: Registered NurseType: Nursing Progress NoteFiled: 10/04/2017 5:00 PMNote Text: Nursing Progress NotePatient Name: Joshua DiazRN: [id number] Location: [place] Surgery/[place] Surgery Daily Note:Pt up to BR with assist. Pt. Able to urinate without difficulty. Smallemesis prior to getting up. States nausea feels better.This note was completed by: Jennie Wilson RN [facility] NURSING PROG HNO ID: [id number] thor: Suzan Morales Rn: (none)Author Type: Registered NurseType: Nursing Progress NoteFiled: 10/04/2017 2:05 PMNote Text: Nursing Progress NotePatient Name: Joshua DiazRN: [id number] Location: [place] Surgery/ME Surgery Report off to ANA Egan for lunch coverage. IV site withoutcomplications. Pt smiling, pleasant and in NAD. Care relinquished.This note was completed by: Yamilet Horta RN [facility] NURSING PROG HNO ID: [id number] thor: Yamilet (Rn) Dina Hortaice: (none)Author Type: Registered NurseType: Nursing Progress NoteFiled: 10/04/2017 11:08 AMNote Text: Nursing Progress NotePatient Name: Joshua DiazRN: [id number] Location: [place] Surgery/ME Surgery OR notified RN of possible 30-40 minute delay. Pt/family aware. Ptcontinues to laugh and denies pain or concerns. IV site withoutcomplications, NPO maintained. Warm blanket applied.This note was completed by: Yamilet Horta RN [facility] NURSING PROG HNO ID: [id number] thor: Yamilet (Rn) Dina Hortaice: (none)Author Type: Registered NurseType: Nursing Progress NoteFiled: 10/04/2017 10:36 AMNote Text: Nursing Progress NotePatient Name: Joshua RodriguezN: [id number] Location: [place] Surgery/[place] Surgery Family at bedside. IV infusing and site without complications. Ptlaughing and refuses warm blanket. Ready for OR.This note was completed by: Yamilet Horta RN [facility] OPERATIVE NOon 10-04-2017 OPERATIVE NO HNO ID: [id number] thor: Basim Sheridanervice: General SurgeryAuthor Type: PhysicianType: Operative ReportFiled: 10/05/2017 8:02 AMNote Text:[facility]- Operative ReportBESSJOSHUA MDOB: 1995 AGE: 22 SEX: FMRN: [id number] ACCTNUM: [id number] SVC: GENS LOCATION: [id number] PHYSICIAN: BASIM BHANDARITE OF PROCEDURE: 10/04/2017SURGEON: Basim Prince M.D.OUTDOOR ADVENTURE GUIDES: NONEANESTHESIA: General endotracheal.PREOPERATIVE DIAGNOSIS(ES): Symptomatic cholelithiasis, biliary colic.POSTOPERATIVE DIAGNOSIS(ES): Symptomatic cholelithiasis, biliary colic,normal cholangiogram.NAME OF OPERATION: Laparoscopic cholecystectomy with cholangiogram.INDICATIONS:ES TIMATED BLOOD LOSS: 10 mL.COMPLICATIONS: None.SPECIMENS: Gallbladder.DRAINS: None.URINE OUTPUT: No catheter.LOG ID: [id number].START TIME: 1:06 p.m.END TIME: 2:02 p.m.ASA: 2.IV [...] removedthrough the umbilical port site. 0 Maxon xxysxb-tc-uyles suture wasplaced into the defect. The gallbladder [...] present for the entire case. Pamela Welsh, physician'sassistant, provided skin closure.Basim Prince M.D.General SurgeryRG:[id number]: 10/04/2017 14:09:38T: 10/04/2017 22:16:14Job #: [id number] [facility] PLAN OF CAREon 10-04-2017 PLAN OF CARE HNO ID: [id number] thor: Kathrine Alarcon (Runner Worker)Service: (none)Author Type: TechnicianType: Plan of CareFiled: 10/04/2017 3:36 PMNote Text:CHIEF RECORDIST BEDSIDE DELIVERY SURVEY1. Patient to use [facility] Bedside Delivery - YES2. If fax, patient would like us to fax prescriptions to [facility]. Pharmacy: b. Location: c. Phone:3. Insurance card on file - YES4. Credit card for payment - YESPHARMFORMERLY [facility] BEDSIDE DELIVERY SERVICEPatient Name: Joshua TrotterRN: [id number] marked outpatient medications were Filled at: [place] and delivered tothe patient's bedside to pharm [...] ODT 10/02 ORAL PROBIOTIC 4X ORALDiana Dorian (Runner Worker)PAGER: [phone] 2017 3:36 PM [facility] PT EDon 10-04-2017 PT ED HNO ID: [id number] thor: Yamilet (Rn) DAYANA Hortaervice: (none)Author Type: Registered NurseType: Patient EducationFiled: 10/04/2017 10:35 AMNote Text:PRE OP LEARNING ASSESSMENTPROCEDURE/SURGERY: Lap cholecystectomyREADINESS TO LEARN eagerCOGNITIVE ABILITY: Alert and orientedMOTIVATION TO LEARN: EagerFAMILY SUPPORT: High - Very involved in pt carePATIENT LEARNS BEST BY: Individual InstructionFACTORS AFFECTING LEARNING: NonePHYSICAL LIMITATIONS AFFECTING LEARNING: NoneElectronically Signed By: Yamilet Horta RN [facility] SURGICAL PATHOLOGYon 018 SURGICAL PATHOLOGY [facility]: [id number] Physician: BASIM PRINCE MD FINAL DIAGNOSISGallbladder, cholecystectomy [...] surface is henry-pink and displays normal mucosal ridges.Automotive Dismantler sections are submitted in formalin in one cassette.KVB/dss 10/05/2017Gross examination performed at [facility], [address] [place] [address] of Report: 10/06/2017Date of Procedure: 10/04/2017Date of Receipt: 10/04/2017Submitted by: BASIM PRINCE MDLocation: MEORDiagnostic interpretation performed at [facility], [address] [place], [place] [id number]. [facility] Comment on above: Performed By: #### P ATHS ####[facility] [id number] [place], [place] [phone] XR CHOLANGIOGRAM INTRAOPon 0 10-04-2017 Cholesterol * * *Final Report* * *DATE OF EXAM: Oct 04 2017 1:35PM MDX 5421 - XR CHOLANGIOGRAM INTRAOP / REASON: EPIGASTRIC PAIN, CHOLELITHIASIS * * * * Physician Interpretation * * * * HISTORY: Cholelithiasis, epigastric painTECHNIQUE: Fluoroscopic intraoperative intensifier screen images were done.Fluoroscopic Radiation Summary:Plane A, Air Kerma: 2.5 mGyDose Area Product (DAP): 780.9 mGy*dsG0Jwviqc time: 0:12 min:secRESULT: Contrast is shown in the biliary tree and flowing into the duodenum. No dilatation or obvious filling defect is seen.IMPRESSION: As in results.[employer] Professional: PSCB Transcribe Date/Time: Oct 04 2017 2:19PDictated by : CLOVER SHARMA MDThicynthia examination was interpreted and the report reviewed and electronically signed by: CLOVER SHARMA MD on Oct 04 2017 2:19PM [id number] [facility] NURSING PROGon 10-03-2017 NURSING PROG HNO ID: [id number] thor: Gloria Amado (Rn) Enedelia, RNService: (none)Author Type: Registered NurseType: Nursing Progress NoteFiled: 10/03/2017 3:45 PMNote Text:PACC Nurse Progress NoteHistory AND Physical:PACC Visit Date: 10/03/2017Labs Within Last 6 Months:N/AImaging Within Last 12 Months:See chartCardiac Testing:N/ALast Menstrual Period:LMP Date: 09/12/2017Risk Assessment:N/AAnesthesia Review:DOSNarrative:No new consults or testing ordered.Pre-op Considerations:N/AChart Check:Maurisio Mcdaniels RNJanuary 2017 3:44 PM [facility] HOSPon 09-28-2017 HOSP Patient:Joshua Moscoso MRN: [...] days for the following basenames: K,HCTProgress Notes ([facility]):Teresa Sorto MA 09/28/2017 3:21 PM SignedREVIEW [...] patient's last Mammogram screening? N/A Last Colonoscopy: n/Addie Mareclo MD 09/28/2017 3:39 PM SignedHISTORY AND PHYSICALEmily [facility]1995REFERRING PHYSICIAN: Yousif Houser, [facility] COMPLAINT: New PatientHPI: Joshua is a 22 [...] procedure.Planned Procedure: LAPAROSCOPIC CHOLECYSTECTOMY WITH INTRAOPERATIVECHOLEANGIOGRAM - 56645-979Lfwsgqv antibiotic: Ancef 2gm IVPB admissions consultant to ORSCDs needed - YesAssistant Needed - NoDiagnoses: (R10.11) RUQ pain (primary encounter diagnosis) Basim Prince MD [facility] Lab Report: ,Urineo n 03-07-2017 Beta HCG ( test) Ql (U) Negative [facility] Work Phone: Office Visit: GERDon Dietary management education, guidance, and counseling (procedure) yes Invalid Interpretation Code [facility] [facility] [facility] Work Phone: Documentation of current medications (procedure) Done Invalid Interpretation Code [facility] [facility] [facility] [facility] Work Phone: Fall risk assessment No [facility] [facility] [facility] Work Phone: Tobacco smoking status NHIS Never [facility] [facility] [facility] Work Phone: Tobacco smoking status NHIS Former smoker [facility] Work Phone: Tobacco use [facility] Former smoker Invalid Interpretation Code [facility] Work Phone: Office Visit: GERDon 017 General categories [interpretation] of Cervical or vaginal smear or scraping by Cyto stain Unknown [facility] Work Phone: Vital Signs Date Time Vital Sign Value Performing Clinician Facility 03-30-2025 22:03-0400 Body temperature 97.9 [degF] Lesa Trill CARPENTRY TEACHER-C Work Phone: [facility] 03-30-2025 22:03-0400 Diastolic blood pressure 62 mm[Hg] Lesa Trill CARPENTRY TEACHER-C Work Phone: [facility] 03-30-2025 22:03-0400 Heart rate 88 /min Lesa Trill CARPENTRY TEACHER-C Work Phone: [facility] 03-30-2025 22:03-0400 Respiratory rate 15 /min Lesa Trill CARPENTRY TEACHER-C Work Phone: [facility] 03-30-2025 22:03-0400 SaO2% (BldA) [Mass fraction] 99 % Lesa Trill CARPENTRY TEACHER-C Work Phone: [facility] 03-30-2025 22:03-0400 Systolic blood pressure 112 mm[Hg] Lesa Trill CARPENTRY TEACHER-C Work Phone: [facility] 03-30-2025 18:15-0400 Body height 167.64 cm Lesa Trill CARPENTRY TEACHER-C Work Phone: [facility] 03-30-2025 18:15-0400 Body mass index (BMI) [Ratio] 29.4 kg/m2 Lesa Trill CARPENTRY TEACHER-C Work Phone: [facility] 03-30-2025 18:15-0400 Body weight 82.68 kg Lesa Trill CARPENTRY TEACHER-C Work Phone: [facility] 03-30-2025 11:56-0400 Body temperature 97.9 [degF] Lesa Trill CARPENTRY TEACHER-C Work Phone: [facility] 03-30-2025 11:56-0400 Diastolic blood pressure 74 mm[Hg] Lesa Trill CARPENTRY TEACHER-C Work Phone: [facility] 03-30-2025 11:56-0400 Heart rate 70 /min Lesa Trill CARPENTRY TEACHER-C Work Phone: [facility] 03-30-2025 11:56-0400 Respiratory rate 14 /min Lesa Trill CARPENTRY TEACHER-C Work Phone: [facility] 03-30-2025 11:56-0400 SaO2% (BldA) [Mass fraction] 100 % Lesa Trill CARPENTRY TEACHER-C Work Phone: [facility] 03-30-2025 11:56-0400 Systolic blood pressure 120 mm[Hg] Lesa Trill CARPENTRY TEACHER-C Work Phone: [facility] 03-30-2025 09:52-0400 Body height 167.64 cm Lesa Trill CARPENTRY TEACHER-C Work Phone: [facility] 03-30-2025 09:52-0400 Body mass index (BMI) [Ratio] 29.6 kg/m2 Lesa Trill CARPENTRY TEACHER-C Work Phone: [facility] 03-30-2025 09:52-0400 Body weight 83.27 kg Lesa Trill CARPENTRY TEACHER-C Work Phone: [facility] 03-14-2025 22:25-0400 Body temperature 98.1 [degF] Lesa Trill CARPENTRY TEACHER-C Work Phone: [facility] 03-14-2025 22:25-0400 Diastolic blood pressure 91 mm[Hg] Lesa Trill CARPENTRY TEACHER-C Work Phone: [facility] 03-14-2025 22:25-0400 Heart rate 59 /min Lesa Trill CARPENTRY TEACHER-C Work Phone: [facility] 03-14-2025 22:25-0400 Respiratory rate 16 /min Lesa Trill CARPENTRY TEACHER-C Work Phone: [facility] 03-14-2025 22:25-0400 SaO2% (BldA) [Mass fraction] 97 % Lesa Trill CARPENTRY TEACHER-C Work Phone: [facility] 03-14-2025 22:25-0400 Systolic blood pressure 125 mm[Hg] Lesa Trill CARPENTRY TEACHER-C Work Phone: [facility] 03-14-2025 19:38-0400 Body height 167.64 cm Lesa Trill CARPENTRY TEACHER-C Work Phone: [facility] 03-14-2025 19:38-0400 Body mass index (BMI) [Ratio] 28.7 kg/m2 Lesa Trill CARPENTRY TEACHER-C Work Phone: [facility] 03-14-2025 19:38-0400 Body weight 80.73 kg Lesa Trill CARPENTRY TEACHER-C Work Phone: [facility] 02-06-2025 15:24-0400 Body temperature 98.2 [degF] Lesa Trill CARPENTRY TEACHER-C Work Phone: [facility] 02-06-2025 15:24-0400 Diastolic blood pressure 62 mm[Hg] Lesa Trill CARPENTRY TEACHER-C Work Phone: [facility] 02-06-2025 15:24-0400 Heart rate 85 /min Lesa Trill CARPENTRY TEACHER-C Work Phone: [facility] 02-06-2025 15:24-0400 Respiratory rate 16 /min Lesa Trill CARPENTRY TEACHER-C Work Phone: [facility] 02-06-2025 15:24-0400 SaO2% (BldA) [Mass fraction] 97 % Lesa Trill CARPENTRY TEACHER-C Work Phone: [facility] 02-06-2025 15:24-0400 Systolic blood pressure 127 mm[Hg] Lesa Trill CARPENTRY TEACHER-C Work Phone: [facility] 02-06-2025 09:37-0400 Body height 167.64 cm Lesa Triisadora CARPENTRY TEACHER-C Work Phone: [facility] 02-06-2025 09:37-0400 Body mass index (BMI) [Ratio] 29.4 kg/m2 Lsea Trill CARPENTRY TEACHER-C Work Phone: [facility] 02-06-2025 09:37-0400 Body weight 82.7 kg Lesa Trill CARPENTRY TEACHER-C Work Phone: [facility] 11-08-2024 13:29-0500 Body height 167.6 cm Lesa Soler POWDER LOADER.BUTTERMAKER Work Phone: [facility] 11-08-2024 13:29-0500 Body mass index (BMI) [Ratio] 31.31 kg/m2 Lesa Soler APRN.BUTTERMAKER Work Phone: [facility] 11-08-2024 13:29-0500 Body temperature 98.1 [degF] Lesa Soler POWDER LOADER.BUTTERMAKER Work Phone: [facility] 11-08-2024 13:29-0500 Body weight 88 kg Lesa Soler POWDER LOADER.BUTTERMAKER Work Phone: [facility] 11-08-2024 13:29-0500 Diastolic blood pressure 70 mm[Hg] Lesa Soler APRN.BUTTERMAKER Work Phone: [facility] 11-08-2024 13:29-0500 Heart rate 69 /min Lesa Soler POWDER LOADER.BUTTERMAKER Work Phone: [facility] 11-08-2024 13:29-0500 SaO2% (BldA) [Mass fraction] 98 % Lesa Soler POWDER LOADER.BUTTERMAKER Work Phone: [facility] 11-08-2024 13:29-0500 Systolic blood pressure 112 mm[Hg] Lesa Soler POWDER LOADER.BUTTERMAKER Work Phone: [facility] 11-03-2024 10:57-0500 Body mass index (BMI) [Ratio] 32.27 kg/m2 Keely Redyd POWDER LOADER.BUTTERMAKER Work Phone: [facility] 11-03-2024 10:57-0500 Body temperature 99.61 [degF] Keely Reddy POWDER LOADER.BUTTERMAKER Work Phone: [facility] 11-03-2024 10:57-0500 Body weight 90.7 kg Keely Reddy POWDER LOADER.BUTTERMAKER Work Phone: [facility] 11-03-2024 10:57-0500 Diastolic blood pressure 71 mm[Hg] Keely Reddy POWDER LOADER.BUTTERMAKER Work Phone: [facility] 11-03-2024 10:57-0500 Heart rate 77 /min Keely Reddy POWDER LOADER.BUTTERMAKER Work Phone: [facility] 11-03-2024 10:57-0500 Respiratory rate 18 /min Keely Reddy POWDER LOADER.BUTTERMAKER Work Phone: [facility] 11-03-2024 10:57-0500 SaO2% (BldA) [Mass fraction] 98 % Keely Reddy POWDER LOADER.BUTTERMAKER Work Phone: [facility] 11-03-2024 10:57-0500 Systolic blood pressure 105 mm[Hg] Keely Reddy POWDER LOADER.BUTTERMAKER Work Phone: [facility] 10-30-2024 08:01-0500 Body height 167.[address] [facility] 10-30-2024 08:01-0500 Body mass index (BMI) [Ratio] 31.47 kg/m2 Staci Givens RD [facility] 10-30-2024 08:01-0500 Body weight 88.[address] [facility] Comment on above: 1 mo ago at last Dr dias 09-11-2024 13:44-0500 Body height 167.[address] [facility] 09-11-2024 13:44-0500 Body mass index (BMI) [Ratio] 32.77 kg/m2 Staci Givens RD [facility] 09-11-2024 13:44-0500 Body weight 92.[address] [facility] 09-03-2024 13:25-0500 Body height 167.6 cm Lesa Soler APRN.BUTTERMAKER Work Phone: [facility] 09-03-2024 13:25-0500 Body mass index (BMI) [Ratio] 32.77 kg/m2 Lesa Soler POWDER LOADER.BUTTERMAKER Work Phone: [facility] 09-03-2024 13:25-0500 Body temperature 98.1 [degF] Lesa Soler POWDER LOADER.BUTTERMAKER Work Phone: [facility] 09-03-2024 13:25-0500 Body weight 92.08 kg Lsea Soler POWDER LOADER.BUTTERMAKER Work Phone: [facility] 09-03-2024 13:25-0500 Diastolic blood pressure 62 mm[Hg] Lesa Soler APRN.BUTTERMAKER Work Phone: [facility] 09-03-2024 13:25-0500 Heart rate 78 /min Lesa Soler APRN.BUTTERMAKER Work Phone: [facility] 09-03-2024 13:25-0500 SaO2% (BldA) [Mass fraction] 97 % Lesa Soler POWDER LOADER.BUTTERMAKER Work Phone: [facility] 09-03-2024 13:25-0500 Systolic blood pressure 108 mm[Hg] Lesa Soler POWDER LOADER.BUTTERMAKER Work Phone: [facility] 08-28-2024 09:55-0500 Body height 167.6 cm Mario Monique MD Work Phone: [facility] 08-28-2024 09:55-0500 Body mass index (BMI) [Ratio] 33.57 kg/m2 Mario Monique MD Work Phone: [facility] 08-28-2024 09:55-0500 Body weight 94.35 kg Mario Monique MD Work Phone: [facility] 08-28-2024 09:55-0500 Diastolic blood pressure 71 mm[Hg] Mario Monique MD Work Phone: [facility] 08-28-2024 09:55-0500 Heart rate 72 /min Mario Monique MD Work Phone: [facility] 08-28-2024 09:55-0500 Systolic blood pressure 108 mm[Hg] Mario Monique MD Work Phone: [facility] 03-30-2023 09:14-0400 Respiratory rate 14 /min [facility] 03-30-2023 07:47-0400 Diastolic blood pressure 79 mm[Hg] [facility] 03-30-2023 07:47-0400 Heart rate 81 /min [facility] 03-30-2023 07:47-0400 SaO2% (BldA) [Mass fraction] 96 % [facility] 03-30-2023 07:47-0400 Systolic blood pressure 141 mm[Hg] [facility] 03-29-2023 21:44-0400 Body temperature 97.2 [degF] [facility] 03-28-2023 09:05-0400 Body height 167.64 cm [facility] 03-28-2023 09:05-0400 Body mass index (BMI) [Ratio] 32.3 kg/m2 [facility] 03-28-2023 09:05-0400 Body weight 90.71 kg [facility] 02-28-2017 14:13-0400 BMI (Body Mass Index) 31.79 kg/m2 Joshua Marshall RN RN [facility] Work Phone: 02-28-2017 14:13-0400 Body Temperature 98.1 [degF] Johsua Marshall RN RN [facility] Work Phone: 02-28-2017 14:13-0400 Body weight 89.36 kg Collette Curiel MD [facility] Work Phone: 02-28-2017 14:13-0400 BP Diastolic 88 mm[Hg] Joshua Marshall RN RN [facility] Work Phone: 02-28-2017 14:13-0400 BP Systolic 120 mm[Hg] Joshua Marshall RN RN [facility] Work Phone: 02-28-2017 14:130400 BSA (Body Surface Area) 1.99 m2 Joshua Marshall RN RN [facility] Work Phone: 02-28-2017 14:13-0400 Height 167.64 cm Joshua Marshall RN RN [facility] Work Phone: 02-28-2017 14:13-0400 Pulse (Heart Rate) 58 /min Joshua Marshall RN RN [facility] Surg al [facility] Work Phone: 02-28-2017 14:130400 Pulse Oximetry 98 % Joshua Marshall RN RN [facility] Work Phone: 02-28-2017 14:13-0400 Respiratory Rate 16 /min Joshua Marshall RN RN [facility] Work Phone: 02-28-2017 14:130400 Weight 89.36 kg Joshua Marshall RN RN [facility] Work Phone: Encounters Encounter Date Encounter Type Care Provider Facility Start: 04-02-2025 End: 04-02-2025 ambulatory LESA SOLER Facility:[facility] Start: 04-01-2025 End: 04-01-2025 ambulatory Lesa Soler POWDER LOADER.BUTTERMAKER Work Phone: [facility] Comment on above: ER F/U ([facility] ) Start: 03-30-2025 End: 03-30-2025 Emergency department patient visit Lesa DANIEL Work Phone: -Emergency Department Work Phone: Start: 03-30-2025 End: 03-30-2025 Emergency department patient visit Lesa DANIEL Work Phone: -Emergency Department Work Phone: Start: 03-21-2025 End: 03-21-2025 Telephone encounter Lesa Soler APRN.CNP Work Phone: [facility] Comment on above: Lab Orders Start: 03-18-2025 End: 03-18-2025 ambulatory Lesa Soler APRN.CNP Work Phone: [facility] Start: 03-18-2025 End: 03-18-2025 Follow-up encounter Lesa Soler APRN.BUTTERMAKER Work Phone: [facility] Comment on above: ED Follow-up ([facility] ED 03/14/2025) Start: 03-14-2025 End: 03-14-2025 Emergency department patient visit Lesa DANIEL Work Phone: -Emergency Department Work Phone: Start: 02-14-2025 End: 02-14-2025 ambulatory Lesa Soler APRN.BUTTERMAKER Work Phone: [facility] Start: 02-14-2025 End: 02-14-2025 Follow-up encounter Lesa Soler APRN.BUTTERMAKER Work Phone: [facility] Comment on above: ED Follow-up ([facility] ED 02/06/2025 and [facility] ED 02/08/2025) Start: 02-08-2025 End: 02-08-2025 Emergency department patient visit [facility] Start: 02-06-2025 End: 02-06-2025 Emergency department patient visit Lesa DANIEL Work Phone: -Emergency Department Work Phone: Start: 11-18-2024 End: 11-18-2024 ambulatory Gema Small PA-C Work Phone: Rep[facility]ductive [facility]ocrinology [facility] Comment on above: Procreative manageme nt (Primary [...] 11-12-2024 End: 11-12-2024 Follow-up encounter Lesa Soler APRN.BUTTERMAKER Work Phone: [facility] Start: 11-08-2024 End: 11-08-2024 Telephone encounter Lesa Soler APRN.BUTTERMAKER Work Phone: [facility] Start: 11-08-2024 End: 11-08-2024 Patient encounter procedure Lesa Soler APRN.BUTTERMAKER Work Phone: [facility] Comment on above: Type 2 diabetes kamlesh itus without complication, without long- term current use of insulin (HCC) (Primary Dx); Dyslipidemia; Hirsutism Start: 11-08-2024 End: 11-08-2024 ambulatory LESA SOLER Facility:[facility] Start: 11-03-2024 End: 11-03-2024 ambulatory LESA SOLER Facility:[facility] Start: 11-03-2024 End: 11-03-2024 Patient encounter procedure Keely Sima FELIZ.BUTTERMAKER Work Phone: [facility] Comment on above: URI, acute (Primary Dx) Start: 10-30-2024 End: 10-30-[address] [facility] Start: 10-30-2024 End: 10-30-20[address] Nutrition therapy Staci Givens RD [facility] Comment on above: Reassessment; Patien t Education Start: 10-13-2024 End: 10-17-2024 ambulatory Mario Monique MD Work Phone: OB/Gynecology Comment on above: Menstruation questio n Start: 09-30-2024 End: 09-30-2024 Emergency department patient visit Christos Esparza Facility:[facility] Start: 09-19-2024 End: 09-20-2024 Telephone encounter Lesa Soler APRN.BUTTERMAKER Work Phone: [facility] Comment on above: Results (labs) Start: 09-11-2024 End: 09-11-2024 ambulatory STACI GIVENS Facility:[facility] Start: 09-11-2024 End: 09-11-2024 Nutrition therapy Staci Givens RD [facility] Comment on above: Dietary counseling ( Primary Dx); Type 2 diabetes mellitus without complication, without long-term current use of insulin (HCC); PCOS (polycystic ovarian syndrome) Start: 09-11-2024 End: 09-11-2024 Telemedicine consultation with patient Staci Givens [facility] Start: 09-11-2024 End: 09-11-2024 ambulatory LESA SOLER Facility:[facility] Start: 09-03-2024 End: 09-03-2024 ambulatory LESA SOLER Facility:[facility] Start: 09-03-2024 End: 09-03-2024 Patient encounter procedure Lesa Soler APRN.BUTTERMAKER Work Phone: [facility] Comment on above: Type 2 diabetes kamlesh itus without complication, without long- term current use of insulin (HCC) (Primary Dx); Chronic diarrhea; Early satiety; Chronic nausea Start: 08-28-2024 End: 08-28-2024 ambulatory MARIO MONIQUE Facility:[facility] Start: 08-28-2024 End: 08-28-2024 Patient encounter procedure Mario Monique MD Work Phone: OB/Gynecology Comment on above: Encounter for gyneco logical examination (general) (routine) without abnormal findings (Primary Dx); Screening for malignant neoplasm of cervix; PCOS (polycystic ovarian syndrome); Primary female infertility Start: 08-28-2024 End: 08-28-2024 Patient encounter status Mario Monique MD Work Phone: [facility] Work Phone: Start: 07-15-2024 End: 07-15-2024 Emergency department patient visit No Primary Care Physician Facility:[facility] Start: 03-28-2023 End: 03-30-2023 Emergency department patient visit [facility]gency Department Work Phone: Start: 10-04-2017 End: 10-04-2017 Ambulatory [facility] Procedures Date Procedure Procedure Detail Performing Clinician Start: 03-30-2025 Estimated creatinine clearance Lesa Trill CARPENTRY TEACHER-C Work Phone: Start: 03-30-2025 Urnls dip stick/tabl et reagent auto microscopy Lesa Trill CARPENTRY TEACHER-C Work Phone: Start: 03-14-2025 Estimated creatinine clearance Lesa Trill CARPENTRY TEACHER-C Work Phone: Start: 02-06-2025 Methadone measuremen t, urine Lesa Trill CARPENTRY TEACHER-C Work Phone: Start: 02-06-2025 Estimated creatinine clearance Lesa Trill CARPENTRY TEACHER-C Work Phone: Start: 11-08-2024 Urine albumin quantitative Lesa Soler POWDER LOADER.BUTTERMAKER Work Phone: Start: 11-03-2024 STREP A MOLECULAR (POC) Keely Reddy POWDER LOADER.BUTTERMAKER Work Phone: Start: 03-29-2023 CT of abdomen and pe lvis without contrast Start: 03-28-2023 SARS-CoV-2 & FLU Ant igen (Rapid) Start: 02-28-2017 End: 02-28-2017 Dietary management education, guidance, and counseling Collette Curiel MD Start: 02-28-2017 End: 02-28-2017 Documentation of current medications Collette Curiel MD Plan of Treatment Date Care Activity Detail Author Start: 08-28-2029 Screening for malignant neoplasm of cervix Cervical Cancer Screening [facility] Start: 11-08-2025 Annual PCP Team Chronic Disease Visit Annual PCP Team Chronic Disease Visit [facility] Start: 11-08-2025 Hepatitis B screening Urine Albumin:Creatinine Ratio [facility] Start: 11-08-2025 Pneumococcal vaccination Pneumococcal Vaccine (1 of 2 - PCV) [facility] Comment on above: Postponed from 02/06/2012 (Declined at t his time) Start: 09-11-2025 Hepatitis B surface antibody level LDL Cholesterol [facility] Start: 09-03-2025 Annual PCP Team Chronic Disease Visit Annual PCP Team Chronic Disease Visit [facility] Start: 09-03-2025 Anxiety Screening Anxiety Screening [facility] Comment on above: Postponed from 2011 (Declined at t his time) Start: 09-03-2025 Covid-19 Vaccine ( season) Covid-19 Vaccine ( season) [facility] Comment on above: Postponed from 06/02/2024 (Declined at t his time) Start: 09-03-2025 Urine microalbumin profile DTaP,Tdap,Td Vaccine (1 - Tdap) [facility] Comment on above: Postponed from 02/06/2012 (Declined at t his time) Start: 08-29-2025 End: 08-29-2025 Patient encounter procedure 08/29/2025 8:45 AM EST Office Visit OB/Gynecology [address] [place] [address] [place] [id number] [place], [place] [address] annual OB/Gynecology Comment on above: annual Start: 06-02-[address] [facility] Start: 04-02-2025 End: 04-02-2025 ambulatory 04/02/2025 9:00 AM EDT Results Only [facility] [address] [place] [address] [facility] Start: 03-31-2025 Influenza vaccination Influenza Vaccine (#1) [facility] Comment on above: Postponed from 06/02/2024 (Declined at t his time) Start: 03-30-2025 [facility] Start: 03-30-2025 [facility] Start: 03-21-2025 End: 10-17-2025 CBC panel - Blood by Automated count COMPLETE BLOOD COUNT Lab Routine Dyslipidemia Expected: 03/21/2025, Expires: 10/17/2025 [facility] Work Phone: Comment on above: Expected: 03/21/2025, Expires: Start: 03-21-2025 End: 10-17-2025 Comprehensive metabolic 2000 panel - Serum or Plasma COMPREHENSIVE METABOLIC PANEL Lab Routine Dyslipidemia Expected: 03/21/2025, Expires: 10/17/2025 [facility] Comment on above: Expected: 03/21/2025, Expires: Start: 03-21-2025 End: 06-20-2025 Lipid 1996 panel - Serum or Plasma LIPID PANEL, FASTING Lab Routine Dyslipidemia Expected: 03/21/2025, Expires: 06/20/2025 [facility] Comment on above: Expected: 03/21/2025, Expires: Start: 03-14-2025 [facility] Start: 03-12-2025 Hemoglobin A1c measurement HbA1C [facility] Start: 02-06-2025 [facility] Start: 11-18-2024 End: 02-17-2025 25-hydroxyvitamin D3 [Mass/volume] in Serum or Plasma VITAMIN D 25 HYDROXY Lab Routine Procreative management Expected: 11/18/2024, Expires: 02/17/2025 [facility] Comment on above: Expected: 11/18/2024, Expires: Start: 11-18-2024 End: 02-17-2025 ANTI MULLERIAN HORMONE ANTI MULLERIAN HORMONE Lab Routine Encounter for fertility testing Expected: 11/18/2024, Expires: 02/17/2025 [facility] Comment on above: Expected: 11/18/2024, Expires: Start: 11-18-2024 End: 02-17-2025 CBC panel - Blood by Automated count COMPLETE BLOOD COUNT Lab Routine PCOS (polycystic ovarian syndrome) Irregular bleeding Expected: 11/18/2024, Expires: 02/17/2025 [facility] Comment on above: Expected: 11/18/2024, Expires: Start: 11-18-2024 End: 02-17-2025 Chlamydia trachomatis+Neisseria gonorrhoeae DNA [Presence] in Unspecified specimen by MURALI with probe detection GONORRHEA/CHLAMYDIA NAAT Lab Routine Screen for STD (sexually transmitted disease) Expected: 11/18/2024, Expires: 02/17/2025 [facility] Comment on above: Expected: 11/18/2024, Expires: Start: 11-18-2024 End: 02-17-2025 Choriogonadotropin.bet a subunit [Units/volume] in Serum or Plasma HCG QUANTITATIVE Lab Routine PCOS (polycystic ovarian syndrome) Expected: 11/18/2024, Expires: 02/17/2025 [facility] Comment on above: Expected: 11/18/2024, Expires: Start: 11-18-2024 End: 02-17-2025 DHEA-S BLD DHEA-S BLD Lab Routine Encounter for fertility testing Expected: 11/18/2024, Expires: 02/17/2025 [facility] Comment on above: Expected: 11/18/2024, Expires: Start: 11-18-2024 End: 02-17-2025 Estradiol (E2) [Mass/volume] in Serum or Plasma ESTRADIOL-17B BLD Lab Routine Encounter for fertility testing Expected: 11/18/2024, Expires: 02/17/2025 [facility] Comment on above: Expected: 11/18/2024, Expires: Start: 11-18-2024 End: 02-17-2025 Hemoglobin A1c in Blood HEMOGLOBIN A1C Lab Routine Procreative management Expected: 11/18/2024, Expires: 02/17/2025 [facility] Comment on above: Expected: 11/18/2024, Expires: Start: 11-18-2024 End: 02-17-2025 Hepatitis B virus core Ab [Presence] in Serum HEPATITIS B CORE ANTIBODY TOTAL Lab Routine Screening for STD (sexually transmitted disease) Expected: 11/18/2024, Expires: 02/17/2025 [facility] Comment on above: Expected: 11/18/2024, Expires: Start: 11-18-2024 End: 02-17-2025 Hepatitis B virus surface Ag [Presence] in Serum HEPATITIS B SURFACE ANTIGEN Lab Routine Screening examination for STD (sexually transmitted disease) Expected: 11/18/2024, Expires: 02/17/2025 [facility] Comment on above: Expected: 11/18/2024, Expires: Start: 11-18-2024 End: 02-17-2025 Hepatitis C virus Ab [Presence] in Serum HEPATITIS C ANTIBODY IA WITH CONFIRMATION Lab Routine Screening examination for STD (sexually transmitted disease) Expected: 11/18/2024, Expires: 02/17/2025 [facility] Comment on above: Expected: 11/18/2024, Expires: Start: 11-18-2024 End: 02-17-2025 HIV 1+2 Ab [Presence] in Serum or Plasma by Immunoassay HIV 1/2 COMBO WITH REFLEX TO DIFFERENTIATION Lab Routine Screening examination for STD (sexually transmitted disease) Expected: 11/18/2024, Expires: 02/17/2025 [facility] Comment on above: Expected: 11/18/2024, Expires: Start: 11-18-2024 End: 02-17-2025 Progesterone [Mass/volume] in Serum or Plasma PROGESTERONE Lab Routine Encounter for fertility testing Expected: 11/18/2024, Expires: 02/17/2025 [facility] Comment on above: Expected: 11/18/2024, Expires: Start: 11-18-2024 End: 02-17-2025 Prolactin [Mass/volume] in Serum or Plasma PROLACTIN Lab Routine Encounter for fertility testing Expected: 11/18/2024, Expires: 02/17/2025 [facility] Comment on above: Expected: 11/18/2024, Expires: Start: 11-18-2024 End: 02-17-2025 RUBELLA IGG ANTIBODY RUBELLA IGG ANTIBODY Lab Routine Procreative management Expected: 11/18/2024, Expires: 02/17/2025 [facility] Comment on above: Expected: 11/18/2024, Expires: Start: 11-18-2024 End: 02-17-2025 SYPHILIS TREPONEMAL W/REFLEX SYPHILIS TREPONEMAL W/REFLEX Lab Routine Screening examination for STD (sexually transmitted disease) Expected: 11/18/2024, Expires: 02/17/2025 [facility] Comment on above: Expected: 11/18/2024, Expires: Start: 11-18-2024 End: 02-17-2025 Testosterone [Mass/volume] in Serum or Plasma TESTOSTERONE, TOTAL BY IMMUNOASSAY (ADULT MALES, OR INDIVIDUALS ON TESTOSTERONE THERAPY) Lab Routine Encounter for fertility testing Expected: 11/18/2024, Expires: 02/17/2025 [facility] Comment on above: Expected: 11/18/2024, Expires: Start: 11-18-2024 End: 02-17-2025 Thyrotropin [Units/volume] in Serum or Plasma THYROID STIMULATING HORMONE Lab Routine Encounter for fertility testing Expected: 11/18/2024, Expires: 02/17/2025 [facility] Comment on above: Expected: 11/18/2024, Expires: Start: 11-18-2024 End: 02-17-2025 TYPE + SCREEN TYPE + SCREEN Blood Bank Routine Procreative management Expected: 11/18/2024, Expires: 02/17/2025 [facility] Work Phone: Comment on above: Expected: 11/18/2024, Expires: Start: 11-18-2024 End: 11-18-2025 US Uterus and Fallopian tubes W saline IU SONOHYSTEROGRAPHY (SIS) US [facility] Anc Imaging Routine PCOS (polycystic ovarian syndrome) Encounter for fertility testing Irregular bleeding Expected: 11/18/2024, Expires: 11/18/2025 [facility] Comment on above: Expected: 11/18/2024, Expires: Start: 11-18-2024 End: 02-17-2025 VARICELLA ZOSTER IGG VARICELLA ZOSTER IGG Lab Routine Procreative management Expected: 11/18/2024, Expires: 02/17/2025 [facility] Comment on above: Expected: 11/18/2024, Expires: Start: 11-18-2024 End: 11-18-2024 Patient encounter procedure 11/18/2024 1:00 PM EST Office Visit [facility] [address] [place], [place] [id number] Gema Small PA-C [address] [place] [address] PCOS (polycystic ovarian syndrome) [E28.2] [facility] Comment on above: PCOS (polycystic ovarian syndrome) [E28. 2] Start: 11-08-2024 Depression Screening Depression Screening [facility] Comment on above: Postponed from 2011 (Declined at t his time) Start: 11-08-2024 End: 11-08-2024 Patient encounter procedure 11/08/2024 1:40 PM EST Office Visit [facility] [address] [place] [address] Lesa Soler, POWDER LOADER.BUTTERMAKER [address] [place] [address] 6-8 WK F/U DM [facility] Comment on above: 6-8 WK F/U DM Start: 10-30-2024 End: 10-30-2024 Follow-up encounter 10/30/2024 8:00 AM EST Education [facility] [address] [address] Staci Givens, RD [address] [place] [address] follow up Nutrition Therapy Comment on above: follow up Start: 10-22-2024 End: 10-22-2024 Patient encounter procedure 10/22/2024 1:00 PM EST Office Visit [address] [address] Lesa Soler, POWDER LOADER.BUTTERMAKER [address] [place] [address] 6-8 WK F/U DM [facility] Comment on above: 6-8 WK F/U DM Start: 10-22-2024 End: 10-22-2024 Follow-up encounter 10/22/2024 8:00 AM EST Education [facility] [address] [id number] Staci Givens, RD [address] [place] [address] follow up Nutrition Therapy Comment on above: follow up Start: 09-03-2024 End: 09-03-2024 Patient encounter procedure 09/03/2024 1:20 PM EST Office Visit [address] [place] [address] Lesa Soler APRN.BUTTERMAKER [address] [place] [address] WebAppointment Request #[id number] [facility] Comment on above: WebAppointment Request #[id number] Start: 06-02-2024 Covid-19 Vaccine ( season) Covid-19 Vaccine ( season) [facility] Start: 06-02-2024 Influenza vaccination Influenza Vaccine (#1) [facility] Start: 03-28-2023 Referral to service [facility] Start: 03-28-2023 End: 03-28-2023 Suicide precautions [facility] Start: 03-07-2017 End: 03-07-[address] [facility] Work Phone: Start: 02-28-2017 End: 02-28-[address] [facility] Work Phone: Start: 02-28-2017 End: 03-01-2017 Follow Up Appt Other Follow Up Appt Other [facility] Work Phone: Start: 02-28-2017 End: 02-28-2017 Uppr gi endoscopy, diagnosis Upper gastrointestinal endoscopy [facility] Work Phone: Start: 2014 Screening for malignant neoplasm of cervix Cervical Cancer Screening [facility] Start: 02-06-2012 Hepatitis B Vaccine (1 of 3 - 19+ 3-dose series) Hepatitis B Vaccine (1 of 3 - 19+ 3-dose series) [facility] Start: 02-06-2012 Pneumococcal vaccination Pneumococcal Vaccine (1 of 2 - PCV) [facility] Start: 02-06-2012 Urine microalbumin profile DTaP,Tdap,Td Vaccine (1 - Tdap) [facility] Start: 2011 Anxiety Screening Anxiety Screening [facility] Start: 2011 Depression Screening Depression Screening [facility] Start: 2011 Hepatitis C screening Hepatitis C Screening [facility] Start: 2011 HIV screening HIV Screening [facility] Start: 2003 Diabetic foot examination Diabetic Foot Exam [facility] Start: 2003 Glaucoma screening Dilated Retinal Exam [facility] Start: 2003 Hepatitis B screening Urine Albumin:Creatinine Ratio [facility] Start: 1999 Pneumococcal vaccination Pneumococcal Vaccine (1 of 2 - PCV) [facility] COVID & INFLUENZA A/ B & RSV PCR, ROUTINE COVID & INFLUENZA A/B & RSV PCR, ROUTINE Microbiology Routine URI, acute Ordered: 11/03/2024 [facility] Work Phone: Comment on above: Ordered: 11/03/2024 PAP TEST PAP TEST Lab Rou vi Screening for malignant neoplasm of cervix 08/28/2024 10:22 AM EST [facility] Work Phone: Patient Education [facility] Work Phone: Patient referral [facility] Work Phone: End: 12-16-2025 RF Uterus and Fallopian tubes Views W contrast IU XR HYSTEROSALPINGOGRAM Radiology Routine Encounter for fertility testing H/O unilateral salpingectomy 1 Occurrences starting 11/18/2024 until 12/16/2025 [facility] Comment on above: 1 Occurrences starting 11/18/2024 until 12/16/2025 Payers Date Payer Category Payer Self-pay [id number] 2024 Medicaid [id number] 2024 Private Health Insurance HUMANA HUMANA MEDICAID [facility] [id number] 2024-Present [address] [address] [place] [address] Medicaid [id number] 2024 Private Health Insurance [id number] 2016 Unknown [id number] 1993 Unknown [id number] Unknown [id number] Unknown [facility] [id number] Unknown [id number] Unknown [id number] 462 Unknown [id number] 462 Unknown [id number] Unknown [id number] 462 Unknown [id number] 462 Social History Date Type Detail Facility Start: 03-28-2023 Tobacco smoking status [facility] Unknown if ever smoked [facility] Start: 01-09-2019 [facility] Start: 1995 Sex Assigned At Female W [facility] Start: 08-28-2024 End: 02-06-2025 Tobacco smoking status NVIS Never smoked tobacco [facility] Start: 08-28-2024 Tobacco use and exposure Smokeless tobacco non-user [facility] Start: 08-28-2024 End: 11-27-2024 Alcoholic beverage intake Ex-drinker (finding) [facility] Start: 08-28-2024 End: 09-11-2024 History of [address] function [facility] Start: 08-28-2024 End: 09-11-[address] [facility] National Score (1-100), lower number is lower risk 66 [facility] Start: 1995 Sex assigned at Not on file [facility] Start: 03-14-2025 End: 03-30-2025 Tobacco smoking status NHIS Smokes tobacco daily (finding) [facility] NEGATED: Highlighted row [facility] Functional Status Date Assessment Result Facility 11-08-2014 Are you deaf, or do you have serious difficulty hearing No 11/08/2014 11:42 AM Charlene Rodas MA No [facility] 11-08-2014 Are you blind, or do you have serious difficulty seeing, even when wearing glasses No 11/08/2014 11:42 AM Charlene Rodas MA No [facility] 11-08-2014 Do you have serious difficulty walking or climbing stairs No 11/08/2014 11:42 AM Charlene Rodas MA No [facility] 11-08-2014 Do you have difficul ty dressing or bathing No 11/08/2014 11:42 AM Charlene Rodas MA [facility] 11-08-2014 Because of a physica l, mental, or emotional condition, do you have difficulty doing errands alone such as visiting a physician's office or shopping No 11/08/2014 11:42 AM Charlene Rodas MA [facility] Mental Status Date Assessment Result Facility 11-08-2014 Because of a physica l, mental, or emotional condition, do you have serious difficulty concentrating, remembering, or making decisions No 11/08/2014 11:42 AM Charlene Rodas MA [facility] Clinical Notes 03-28-2023 to 04-01-2025 Naomie Mcguire LPN - 04/01/2025 3:05 PM EDTTelephone Encounter - Myra Duran MA - 03/21/2025 11:06 AM EDTTelephone Encounter - Myra Duran MA - 03/21/2025 11:06 AM EDT Note Date & Type Note Facility 04-01-2025 Note HNO ID: [id number] Author: NAOMIE MCGUIRE LPN Service: ? Author Type: LICENSED NURSE Type: Progress Notes Filed: 04/01/2025 15:10 Note Text: ED Follow-Up Note Provider Action / FYI: Call completed by: SHAISTA Patient seen in ED: Out of Network ED Contact made with Patient: No, left message. Naomie Mcguire LPN April 01, 2025 3:10 PM [facility] 04-01-2025 History of Presen t illness Narrative ED Follow-Up Note Provider Action / FYI: Call completed by: SHAISTA Patient seen in ED: Out of Network ED Contact made with Patient: No, left message. Naomie Mcguire LPN April 01, 2025 3:10 PM documented in this encounter [facility] 04-01-2025 Note Patient Outreach (AG FAMPLE) JOSHUA CHOUDHARY ([id number]) 1995 F Date Time Provider Department 04/01/25 LESA SOLER During your visit today, we recorded the following information about you: Naomie Mcguire LPN 04/01/2025 3:10 PM Signed ED Follow-Up Note Provider Action / FYI: Call completed by: SHAISTA Patient seen in ED: Out of Network ED Contact made with Patient: No, left message. Naomie Mcguire LPN April 01, 2025 3:10 PM Allergies As of Date: 04/01/2025 (No Known Allergies) Date Reviewed: 11/27/2024 Reviewed by: Lesa Soler APRN.BUTTERMAKER - Fully Assessed Reason for Visit: ER F/U [41] Cmt: [facility] 03/30/2025 Prescriptions as of 04/01/2025 - venlafaxine (EFFEXOR) 75 mg tablet Take 75 mg by mouth once daily. Taking 112 mg a day Problem List As Of Date 04/01/2025 Noted Resolved Abdominal pain, epigastric [R10.13] 05/16/2017 Gallstones [K80.20] 08/28/2017 RUQ pain [R10.11] 09/28/2017 Type 2 diabetes mellitus without complication, *09/03/2024 Anxiety [F41.9] 09/22/2024 Polycystic ovarian syndrome [E28.2] 02/28/2017 Secondary amenorrhea [N91.1] 09/22/2024 Suicidal ideation [R45.851] 09/22/2024 Chronic diarrhea [K52.9] 09/22/2024 Dyslipidemia [E78.5] 11/08/2024 Hirsutism [L68.0] 11/27/2024 Encounter Status:Closed by NAOMIE MCGUIRE on 04/01/25 [facility] 03-21-2025 Telephone encount er Note Left message informing patient, phone number to reach the office was left for any questions or concerns. Myra Duran MA [facility] 03-21-2025 Miscellaneous Notes Formattin g of this note might be different from the original. Left message informing patient, phone number to reach the office was left for any questions or concerns. Myra Duran MA Addended by: LESA SOLER on: 03/21/2025 10:13 AM Modules accepted: Orders Thank you. Please see kellee. Lesa Soler APRN.CNP Recheck sravanthi Duran MA documented in this encounter [facility] 03-21-2025 Note Addended by: LESA SOLER on: 03/21/2025 10:13 AM Modules accepted: Orders [facility] 03-21-2025 Telephone encount er Note Thank you. Please see orders. Lesa Soler APRN.BUTTERMAKER [facility] 03-21-2025 Telephone encount er Note Nitza Duran MA [facility] 03-18-2025 Note HNO ID: [id number] Author: NAOMIE MCGUIRE LPN Service: ? Author Type: LICENSED NURSE Type: Progress Notes Filed: 03/18/2025 10:35 Note Text: ED Follow-Up Note Provider Action / FYI: Call completed by: SHAISTA Patient seen in ED: Out of Network ED Contact made with Patient: No, left message. Naomie Mcguire LPN March 18, 2025 10:35 AM [facility] 03-18-2025 History of Presen t illness Narrative ED Follow-Up Note Provider Action / FYI: Call completed by: SHAISTA Patient seen in ED: Out of Network ED Contact made with Patient: No, left message. Naomie Mcguire LPN March 18, 2025 10:35 AM documented in this encounter [facility] 03-18-2025 Note Patient Outreach (YULY YAÑEZ) JOSHUA CHOUDHARY ([id number]) 1995 F Date Time Provider Department 03/18/25 [...] Date Reviewed: 11/27/2024 Reviewed by: Lesa Soler APRN.BUTTERMAKER - Fully Assessed Reason for Visit: ED [...] by NAOMIE MCGUIRE on 03/18/25 [facility] 02-14-2025 Note HNO ID: [id number] Author: NAOMIE MCGUIRE LPN Service: ? Author Type: LICENSED NURSE Type: Progress Notes Filed: 02/14/2025 11:01 Note Text: ED Follow-Up Note Provider Action / FYI: Call completed by: SHAISTA Patient seen in ED: Out of Network ED Contact made with Patient: No, left message. Naomie Mcguire LPN February 14, 2025 11:00 AM [facility] 02-14-2025 History of Presen t illness Narrative ED Follow-Up Note Provider Action / FYI: Call completed by: SHAISTA Patient seen in ED: Out of Network ED Contact made with Patient: No, left message. Naomie Mcguire LPN February 14, 2025 11:00 AM documented in this encounter [facility] 02-14-2025 Note Patient Outreach (AG FAMPLE) JOSHUA CHOUDHARY ([id number]) 1995 F Date Time Provider Department 02/14/25 [...] Date Reviewed: 11/27/2024 Reviewed by: Lesa Soler APRN.BUTTERMAKER - Fully Assessed Reason for Visit: ED Follow-up [821] Cmt: [facility] 02/06/2025 and [facility] ED 02/08/2025 Prescriptions as of 02/14/2025 [...] by NAOMIE MCGUIRE on 02/14/25 [facility] 02-06-2025 Discharge summary Note Date/Time February 06, 2025 1:47pm [facility] Medical Records Department [address] [place] [address] Emergency Department Summary 02/06/25 MR#: [id number] Acct: [id number] Name: JOSHUA CHOUDHARY Rep #:[id number] : 1995 30 From: Juan Tapia MD [...] states she wants her panic to stop. [facility] Medical History Anxiety disorder Cannabis use disorder [...] 0 current occupational status: employed current occupation: [employer] Smoking Status: Never smoker Smokeless [...] 82.8 H Lymph % (Auto) 13.9 L [place] % (Auto) 2.3 Eos % (Auto) 0.0 [...] Lesa Soler NP Referrals: Lesa Soler NP, TAMIE-C [Primary Care Provider] - 3-5 Days if not improving Activity Restrictions/Additional Instructions: Follow-up with your psychiatrist as well. Return to the emergency department with new or worsening symptoms. Print Language: Kittitian Disposition Disposition: Home, Self Care What to do if you have Problems For any increased pain, shortness of breath, bleeding, nausea or vomiting, chestpain, or any unexpected problems, contact your Primary Care Provider. Call [facility] ([phone]) or report to the closest Emergency Room. Call 911 if necessary. 02/06/25 1347 <Electronically signed by Juan Tapia MD> Cosigner Signature (if applicable): CC: FREDY Soler ~ Signed [facility] Work Phone: 1(527) 576-619005-08-2025 Discharge summary [facility] Medical Records Department [address] [place] [address] Emergency Department Summary 02/06/25 MR#: [id number] Acct: [id number] Name: JOSHUA CHOUDHARY Rep #:[id number] : 1995 30 From: Juan Tapia MD [...] states she wants her panic to stop. [facility] Medical History Anxiety disorder Cannabis use disorder [...] 0 current occupational status: employed current occupation: [employer] Smoking Status: Never smoker Smokeless [...] 82.8 H Lymph % (Auto) 13.9 L [place] % (Auto) 2.3 Eos % (Auto) 0.0 [...] Lesa Soler NP Referrals: Lesa Soler NP, CARPENTRY TEACHER-C [Primary Care Provider] - 3-5 Days if not improving Activity Restrictions/Additional Instructions: Follow-up with your psychiatrist as well. Return to the emergency department with new or worsening symptoms. Print Language: Kittitian Disposition Disposition: Home, Self Care What to do if you have Problems For any increased pain, shortness of breath, bleeding, nausea or vomiting, chestpain, or any unexpected problems, contact your Primary Care Provider. Call [facility] ([phone]) or report tothe closest Emergency Room. Call 911 if necessary. 02/06/25 1347 Cosigner Signature (if applicable): CC: FREDY Soler ~ Signed [facility]02-17-2025 NoteHNO ID: [id number] Author: GEMA SMALL PA-C Service: ? Author Type: Physician Welt Cutter Type: Progress Notes Filed: 11/18/2024 14:42 Note [...] visit. Either the patient or their legal wireless sales representative has been informed of the risks [...] requesting physician via [place] mail. Mario Monique [id number] [facility] [address] CHIEF COMPLAINT: Procreative management and counseling HISTORY OF PRESENT ILLNESS Joshua Choudhary is a 29 year old female for 5-6 years.Together for 10. Little protection for 10 years, actively TTC for 2-3 years. Not sure if she wants a child at this time. Would like to conceive in 2 years. 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 Mainly wishes to investigate the PCOS [...] methods. Would like to have one child. DROP FORGER HISTORY: Menarche: 12 Cycle Length: 30-60 days [...] 07/03/2018 EGD LAPAROSCOPY SURG (more content not included)...[facility] 11-18-2024 History of Present illness Narrative* [...] requesting physician via [place] mail. Mario Monique [id number] [facility] [address] CHIEF COMPLAINT: Procreative management and counseling HISTORY OF PRESENT ILLNESS Joshua Choudhary is a 29 year old female for 5-6 years.Together for 10. Little protection for 10 years, actively TTC for 2-3 years. Not sure if she wants a child at this time. Would like to conceive in 2 years. 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 Mainly wishes to investigate the PCOS [...] methods. Would like to have one child. DROP FORGER HISTORY: Menarche: 12 Cycle Length: 30-60 days [...] coordination (not separately reported). documented [facility] Telephone encounter Note * Telephone Encounter - Gloria Evans MA - 11/12/2024 10:27 AM EST Lm on pt. Vm with results. Gloria Evans MA [facility]02-11-2025 Telephone encounter Note* Telephone Encounter - Gloria Evans MA - 11/12/2024 10:27 AM EST ----- Message from Lesa Soler APRN.BUTTERMAKER sent at 11/12/2024 8:57 AM EST ----- Please notify patient results are normal. Thank you. Lesa Soler APRN.BUTTERMAKER [facility]02-11-2025 Miscellaneous Notes* Telephone Encounter - Gloria Evans MA - 11/12/2024 10:27 AM EST Lm on pt. Vm with results. Gloria Evans MA * Telephone Encounter - Gloria Evans MA - 11/12/2024 10:27 AM EST ----- Message from Lesa Soler APRN.BUTTERMAKER sent at 11/12/2024 8:57 AM EST ----- Please notify patient results are normal. Thank you. Lesa Soler APRN.BUTTERMAKER documented in this encounterSt. [facility]-07-2025 Telephone encounter Note * Telephone Encounter - Gloria Evans MA - 11/08/2024 2:15 PM EST Per pt. She is requesting number to apex sent to my chart. Gloria Evans MA [facility]02-07-2025 Miscellaneous Notes* Telephone Encounter - Gloria Evans MA - 11/08/2024 2:15 PM EST Per pt. She is requesting number to [place] sent to my chart. Gloria Evans MA documented in this encounterSt. [facility]02-07-2025 NoteHNO ID: [id number] Author: LESA SOLER APRN.BUTTERMAKER Service: ? Author Type: Nurse Practitioner Type: [...] changed her diet a lot Saw the instructional services specialist Made a big difference Was able to develop hunger again and more frequently Still losing weight No more diarrhea Increased movement Going to college - [employer] Walking a lot more Doing EMDR therapy [...] HENT: Head: Normocephalic and atraumatic. Mouth/Throat: Lips: [place]. Eyes: General: Lids are normal. Extraocular Movements: [...] 36.0 g/d (more content not included)...[facility] 11-08-2024 History of Present illness Narrative* Lesa Soler APRN.BUTTERMAKER - 11/08/2024 1:41 PM EST Subjective Joshua Choudhary is a 29 year old female here today for diabetes follow-up. I reviewed past medical, surgical, social, and family histories today and updated chart. Allergies, chronic medications, and supplements were also reviewed. HPI Patient has type 2 diabetes, well controlled with diet She has changed her diet a lot Saw the instructional services specialist Made a big difference Was able to develop hunger again and more frequently Still losing weight No more diarrhea Increased movement Going to college - [employer] Walking a lot more Doing EMDR therapy [...] HENT: Head: Normocephalic and atraumatic. Mouth/Throat: Lips: [place]. Eyes: General: Lids are normal. Extraocular Movements: [...] dermatology - CONSULT TO DERMATOLOGY Lesa Soler APRN.BUTTERMAKER documented in this encounterSt. [facility]02-[facility] History of Present illness Narrative* Keely [...] history is provided by the patient. No foreign language stenographer was used. URI She complains of cough. [...] A/B & RSV PCR, ROUTINE Keely Reddy APRN.BUTTERMAKER documented in this encounterSt. [facility]02-02-2025 NoteHNO ID: [id number] Author: KEELY REDDY APRN.BUTTERMAKER Service: ? Author Type: Nurse Practitioner Type: [...] history is provided by the patient. No foreign language stenographer was used. URI She complains of cough. [...] is no distension. Palpatio (more content not included)...[facility]01-29-2025 Instructions* Patient Instructions* Staci Givens RD - 10/30/2024 8:21 AM EST Continuous previous recommendations AND Ensure protein at breakfast Try sliced chicken breast instead of wings, don't eat chicken skin Add in regular exercise, add 30 min 4 days per week documented in this encounterSt. [facility]01-29-2025 NoteHNO ID: [id number] Author: STACI GIVENS RD Service: ? Author Type: Registered Dietitian Type: Progress Notes Filed: 10/30/2024 08:26 Note Text: [facility] Nutrition Therapy: Virtual Consult - Re-assessment I have communicated my name and active licensure. The patient?s identity and physical location were verified at the time of this visit. Either the patient or their legal wireless sales representative has been informed of the risks [...] Choudhary DATE: October 30, 2024 TIME: 8:00 [facility]01-29-2025 History of Present illness Narrative* Staci Givens RD - 10/30/2024 8:[address] [facility] Nutrition Therapy: Virtual Consult - Re-assessment I have communicated my name and active licensure. The patient s identity and physical location wereverified at the time of this visit. Either the patient or their legal wireless sales representative has been informed of the risks [...] SIGNATURE: Staci Givens RD PATIENT NAME: Joshua Zavala Tarun DATE: October 30, 2024 TIME: 8:00 AM documented in this encounterSt. [facility]01-29-2025 NoteEducation (NUTRTOREY) JOSÉ MIGUEL CHOUDHARYILY Lucas ([id number]) 1995 F Date Time Provider Department 10/30/24 8:00 AM STACI GIVENS NUTRTOREY Reason for Visit: Reassessment [674] Patient Education [...] daily. Encounter Status:Closed by STACI GIVENS on 10/30/24[facility]12-[facility] Telephone encounter Note* Telephone Encounter - [...] Patient may choose to take fish oil [id number]. Recheck cholesterol in 6 months. Thank you Lesa Soelr APRN.BUTTERMAKER [facility]12-19-2024 Miscellaneous Notes* Telephone Encounter - Lesa [...] Patient may choose to take fish oil [id number]. Recheck cholesterol in 6 months. Thank you Lesa Soler APRN.BUTTERMAKER documented in this encounterSt. [facility] Hospital12-11-2024 Instructions* Patient Instructions* Staci Givens RD [...] such as Crystal Light , flavored water, Drwuw4W , Minute Maid light lemonade, Propel ) 5. Increase exercise to at least 30 min cardio 5 days per week or as tolerated; add in weight resistance exercise, preferably 2-3 days per week Consider a B complex and a vit D supplement documented in this encounterSt. [facility]'S Hospital12-11-2024 NoteHNO ID: [id number] Author: STACI GIVENS RD Service: ? Author Type: Registered Dietitian Type: Progress Notes Filed: 09/11/2024 14:22 Note Text: [facility] Nutrition Therapy: Virtual Consult - Initial Assessment I have communicated my name and active licensure. The patient?s identity and physical location were verified at the time of this visit. Either the patient or their legal wireless sales representative has been informed of the risks [...] only such as Crystal Light?, flavored water, Htoff2S?, Minute Maid? light lemonade, Propel?) 5. Increase [...] Education Materials Provided: Healthy Lunch/Dinner Plate and 1124-6586 Calorie Partial Liquid Protein Diet READINESS TO [...] DATE: September 11, 2024 TIME: 1:46 [facility]12-11-2024 History of Present illness Narrative* Staci Givens RD - 09/11/2024 1:[address] [facility] Nutrition Therapy: Virtual Consult - Initial Assessment I have communicated my name and active licensure. The patient s identity and physical location wereverified at the time of this visit. Either the patient or their legal wireless sales representative has been informed of the risks [...] such as Crystal Light , flavored water, Cvtke7W , Minute [place]id light lemonade, Propel ) [...] Education Materials Provided: Healthy Lunch/Dinner Plate and 7054-4829 Calorie Partial Liquid Protein Diet READINESS TO [...] 2024 TIME: 1:46 PM documented in this encounterSt. [facility]'S Hospital12-03-2024 NoteHNO ID: [id number] Author: LESA SOLER APRN.BUTTERMAKER Service: ? Author Type: Nurse Practitioner Type: Progress Notes Filed: 09/22/2024 00:58 Note Text: Subjective Joshua Choudhary is a 29 year old female here today for establish care. I reviewed past medical, surgical, social, and family histories today and updated chart. Allergies, chronic medications, and supplements were also reviewed. HPI Moved back to [place] about 1 year ago Needs PCP Diagnosed [...] Insatiable hunger for sugar, craves candy Saw DROP FORGER last week - Dr Monique Pap test completed Looking in to fertility treatment for 6 years - tried for good 2 years, still not using BC Right fallopian tube removed age 17 Depression - she is seeing counselor and psychiatrist, Dr [place] [phone] Counselor Joshua Zazueta at [facility], will be starting EDMR Hx childhood trauma CPSD responses Having official testing for ADHD Panic disorder Has been focusing on mental health this whole past year Hasn't been able to work this past year She was hospitalized - [facility] x 1 week Just started new [...] 108/62 Pu (more content not included)...[facility] 09-03-2024 History of Present illness Narrative* Lesa Soler, TRINI.BUTTERMAKER - 09/03/2024 1:41 PM EST Subjective Joshua Choudhary is a 29 year old female here today for establish care. I reviewed past medical, surgical, social, and family histories today and updated chart. Allergies, chronic medications, and supplements were also reviewed. HPI Moved back to [place] about 1 year ago Needs PCP Diagnosed [...] Insatiable hunger for sugar, craves candy Saw DROP FORGER last week - Dr Monique Pap test completed Looking in to fertility treatment for 6 years - tried for good 2 years, still not using BC Right fallopian tube removed age 17 Depression - she is seeing counselor and psychiatrist, Dr Marybel Ortiz [phone] Counselor Joshua Zazueta at [facility], will be starting EDMR Hx childhood trauma CPSD responses Having official testing for ADHD Panic disorder Has been focusing on mental health this whole past year Hasn't been able to work this past year She was hospitalized - [facility] x 1 week Just started [...] HENT: Head: Normocephalic and atraumatic. Mouth/Throat: Lips: [place]. Eyes: General: Lids are normal. Extraocular Movements: [...] 787.02, ICD10: R11.0 - LIPASE Lesa Soler APRN.BUTTERMAKER documented in this encounterSt. [facility]11-27-2024 NoteHNO ID: [id number] Author: MARIO MONIQUE MD Service: ? Author [...] skin retraction. Allergies and current medication updated:Yes Pan Reclaim Processor present EXAM: BP 108/71 Pulse 72 Ht 5' 6 (1.68m) Wt 208 lb (94.3kg) LMP 06/28/2024 BMI 33.59 kg/(m2). GENERAL: In no apparent distress HEENT: Normocephalic, BREAST: soft, non-tender, symmetric, no dominant mass, normal nipple-areolar complex, no lymphadenopathy, and no nipple discharge CHEST: Normal inspiratory effort ABDOMEN: soft, non-tender, and no masses PELVIC: external genitalia normal, normal Bartholin's glands, urethra, [place]'s glands, no vulvar lesions, no cervical lesions, [...] discussed with the Patient or Patient's Authorized Automotive Dismantler. As applicable, any other physician, advance practice provider, medical student, or other health professional student that will be observing or involved in the sensitive examination for educational or training purposes was discussed with the Patient or Authorized Automotive Dismantler. The Patient or Authorized Automotive Dismantler has agreed to proceed with the sensitive examination. (Sensitive examination includes inspection and/or palpation of the breasts, pelvis, prostate and anorectal regions)[facility]11-27[facility] History of Present illness Narrative* Mario [...] skin retraction. Allergies and current medication updated:Yes Pan [employer]or present EXAM: BP 108/71 Pulse 72 Ht 5' 6 (1.68m) Wt 208 lb (94.3kg) LMP 06/28/2024 BMI 33.59 kg/(m^2). GENERAL: In no apparent distress HEENT: Normocephalic, BREAST: soft, non-tender, symmetric, no dominant mass, normal nipple-areolar complex, no lymphadenopathy, and no nipple discharge CHEST: Normal inspiratory effort ABDOMEN: soft, non-tender, and no masses PELVIC: external genitalia normal, normal Bartholin's glands, urethra, [place]'s glands, no vulvar lesions, no cervical lesions, [...] discussed with the Patient or Patient's Authorized Automotive Dismantler. Asapplicable, any other physician, advance practice provider, medical student, or other health professional student that will be observing or involved in the sensitive examination for educational or training purposes was discussed with the Patient or Authorized Automotive Dismantler. The Patient or Authorized Automotive Dismantler has agreed to proceed with the sensitive examination. (Sensitive examination includes inspection and/or palpation of the breasts, pelvis, prostate and anorectal regions) documented in [facility] encounter[facility] Discharge summary Author Andres Loyola [facility] March 30, 2023 10:03am Note Date/Time March 28, 2023 11:0 1am [facility] Medical Records Department [address] [place] [address] Emergency Department Summary 03/28/23 MR#: [id number] Acct: [id number] Name: RESHMAROOSEVELTJOSHUA HERNANDEZ Rep #:[id number] : 1995 28 From: Ry Hernandez PCP: Care Physician,No Primary Status :REG ER Location: ED ADDENDUM by Dr. Andres Loyola DO on 03/30/23 at 1003 Patient accepted to [facility] under service Dr. Price. Awaiting transfer. [...] Sitting upright in bed resting comfortably. 03/30/23 06<Electronically signed by Corky Bowman MD> Cosigner Signature (if applicable): cc: No Primary Care Physician ~* Signed ADDENDUM by Dr. Christos Esparza MD on 03/29/23 at 2307 Patient care was transferred to [place] at the beginning of my shift, 1400. Patient is awaiting bed assignment at [facility]. There was concern because of leukocytosis. The drafter chief design at [facility] demanded a CAT scan of the [...] my shift. We will transfer care to [facility]. 03/29/23 230<Electronically signed by Christos Esparza MD> Cosigner Signature (if applicable): cc: No Primary Care Physician ~* Signed ADDENDUM by Dr. Andres Loyola DO on 03/29/23 at 1527 He received callback from psychiatric facility who requested a CT scan abdomen pelvis after discussing with her drafter chief design due to her leukocytosis. Also requested urinary [...] per nursing. She has been medically cleared. [place] slip was filled out by myself as requested by evaluating facility. Awaiting disposition. 03/29/23 1105<Electronically signed by Andres Pedroza> Cosigner Signature (if applicable): cc: No Primary Care Physician ~* Signed ADDENDUM by Dr. Ry James DO on 03/28/23 at 1640 EKG was ordered to assess for QT prolongation. On my independent interpretation, it shows a normal sinus rhythm with a rate of 63. ME interval was 162 ms. QRS interval was 90 ms. QTc interval was normal at 425 ms. Nixon was normal. There are no acute ST [...] and vomiting due to the anxiety. PFSH [facility] Medical History PCOS (polycystic ovarian syndrome) [...] 0 current occupational status: employed current occupation: [employer] Smoking Status: Never smoker Smokeless tobacco user: chewing tobacco alcohol intake: current alcohol intake frequency: holidays/special occasions only substance use type: marijuana seatbelt use: always do you feel safe at home: Yes additional social history: [employer] [facility] ED Constitutional Constitutional ED: Reports chills and [...] (Auto) 70.3 H Lymph % (Auto) 22.0 [place] % (Auto) 4.3 Eos % (Auto) 1.8 [...] Color Urine Clarity Urine pH Ur Specific [place] Urine Protein Urine Glucose (UA) Urine Ketones [...] (Auto) Neut % (Auto) Lymph % (Auto) [place] % (Auto) Eos % (Auto) Baso % (Auto) Absolute Neuts (auto) Absolute Lymphs (auto) Nucleated RBC % Sodium Potassium Chloride Carbon Dioxide Anion Gap BUN Creatinine Estim Creat Clear Calc Est GFR (MDRD) Af Amer Est GFR (MDRD) Non-Af BUN/Creatinine Ratio Glucose Calcium Serum , Qual NEGATIVE Urine Color Straw Urine Clarity Clear Urine pH 8.0 Ur Specific E[place] 1.015 Urine Protein 30 H Urine Glucose [...] Ethyl Alcohol Management Discussion w/another healthcare provider: ventilation worker/Case management Treatment and Re-Evaluation Narrative: Patient [...] will likely need to be transferred to [facility]. Care of the patient will be turned [...] your Primary Care Provider. Call [facility] ([phone]) or report to the closest Emergency Room. Call 911 if necessary. 03/28/23 2973 <Electronically signed by Ry James DO> Cosigner Signature (if applicable): CC: No Primary Care Physician ~ Signed [facility] Work Phone: Evaluation noteNo assessment information available [facility] Work Phone: Evaluation note* Diagnosis Encounter for gynecological examination (general) (routine) without abnormal findings- Primary Screening for malignant neoplasm of cervix Screening for malignant neoplasm of the cervix PCOS (polycystic ovarian syndrome) Polycystic ovaries Primary female infertility Female infertility of unspecified origin [facility] Diagnosis Dietary counseling- Primary Dietary surveillance and counseling Type 2 diabetes mellitus without complication, without long-term current use of insulin (HCC) PCOS (polycystic ovarian syndrome) Polycystic ovaries [facility] this [facility]* Diagnosis Type 2 diabetes mellitus without complication, without long-term current use of insulin (HCC)- Primary Chronic diarrhea Diarrhea Early satiety Chronic nausea Nausea alone [facility]* Diagnosis Type 2 diabetes mellitus without complication, without long-term current use of insulin (HCC)- Primary Dietary counseling Dietary surveillance and counseling PCOS (polycystic ovarian syndrome) Polycystic ovaries Obesity, Class I, BMI 30-34.9 Obesity, unspecified [facility] this [facility]* Diagnosis URI, acute- Primary Acute upper respiratory infections of unspecified site documented in this encounter [facility] note* Diagnosis Procreative management- Primary Unspecified procreative [...] to other organs documented in this encounter [facility] note* Diagnosis Type 2 diabetes mellitus without complication, without long-term current use of insulin (HCC)- Primary Dyslipidemia Other and unspecified hyperlipidemia Hirsutism documented in this encounter [facility] note* Diagnosis Dyslipidemia- Primary Other and unspecified hyperlipidemia [facility] Additional Instructions Follow-up with your psychiatrist as well. Return to the emergency department with new or worsening symptoms.[facility] Work Phone: Hospital Discharge instructions Additional Instructions test negative. Electrolytes normal. Continue oral fluids for hydration. Take medicines as prescribed. Follow-up with your doctor.[facility] Work Phone: Reason for referral (narrative)No reason for referral information availableWTriHealth [facility] Work Phone: Summary Purpose Family History No Family History Records Found Relationship Condition Age at Onset Recorded Date/T tegan mother Malignant neoplasm Unknown Advance Directives No Advanced Directives Records Found Advance Directive Response Recorded Date/ Time Advance Directives No March 20 14 11:23am Living Will No March 28, 2023 9:13am Power of Torch Cutter No March 28 9:13am Advance Directive Response Recorded Date/ Time Do you have a Healthcare Power of Torch Cutter? No February 06, 2025 9:45am Advance Directives No March 20 14 11:23am Advance Directive Response Recorded Date/ Time Do you have a Healthcare Power of Torch Cutter? No February 06, 2025 9:45am Do you have a Healthcare Power of Torch Cutter? No March 14, 2025 8:06pm Advance Directives No March 20 14 11:23am Advance Directive Response Recorded Date/ Time Do you have a Healthcare Power of Torch Cutter? No February 06, 2025 9:45am Do you have a Healthcare Power of Torch Cutter? No March 30, 2025 10:34am Do you have a Healthcare Power of Torch Cutter? No March 14, 2025 8:06pm Advance Directives No March 20 11:23am Advance Directive Response Recorded Date/ Time Do you have a Healthcare Power of Torch Cutter? No February 06, 2025 9:45am Do you have a Healthcare Power of Torch Cutter? No March 30, 2025 10:34am Do you have a Healthcare Power of Torch Cutter? No March 30, 2025 6:39pm Do you have a Healthcare Power of Torch Cutter? No March 14, 2025 8:06pm Advance Directives [...] anxiety, n/v March 30, 2025 9:50 am Chief Complaint Admit Date panic attack February 06, 2025 9:37am anxiety March 14, 2025 7:37 pm anxiety, n/v March 30, 2025 9:50 am PANIC ATTACK March 30, 2025 6:15 pm Reason for Referral Specialty Diagnoses / Procedures Referred By Contac t Referred To Contact Diagnoses PCOS (polycystic ovarian syndrome) Primary female infertility Procedures CONSULT TO INFERTILITY CLINIC OFFICE/OUTPATIENT [facility] [address] [place] [address] [place] [address] Referral ID Status Reason Start Date Expiration Date Visits Requested Visits Authorized [id number] Authorized PCP Requested Referral Auto-Generate d Referral 4 08/28/2025 1 1 Specialty Diagnoses / Procedures Referred By Contact Referred To Contact Gastroenterology / [facility] DEPARTMENT Diagnoses Chronic diarrhea Procedures CONSULT TO GASTROENTEROLOGY OFFICE/OUTPATIENT [facility] 60 MINUTES Lesa Soler, TRINI.BUTTERMAKER [address] [place] [address] [facility] GA[facility] [address] [facility] [place] [address] Referral ID Status Reason Start Date Expiration Date Visits Requested Visits Authorized [id number] Authorized PCP Requested Referral 09/03/2024 09/03/2025 1 1 Specialty Diagnoses / Procedures Referred By Contac t Referred To Contact Nutrition / [facility] [place] [facility] Diagnoses Type 2 diabetes mellitus without complication, without long-term current use of insulin (HCC) Procedures CONSULT TO NUTRITION THERAPY MEDICAL NUTRITION ASSMT&IVNTJ INDIV EACH 15 LA Lesa Soler APRN.BUTTERMAKER [address] [place] [address] [facility] [address] [place] [address] Referral ID Status Reason Start Date Expiration Date Visits Requested Visits Authorized [id number] Authorized PCP Requested Referral 09/03/2024 09/03/2025 1 4 Additional Source Comments INFORMATION SOURCE (unrecogn ized section and content) DATE CREATED AUTHOR 03/27/2018 [facility] DATE CREATED AUTHOR AUTHOR'S ORGANIZ ATION 02/15/2025 [facility] DATE CREATED AUTHOR AUTHOR'S ORGANIZ ATION 03/30/2025 [facility] DATE CREATED AUTHOR AUTHOR'S ORGANIZ ATION 04/03/2025 [facility] DATE CREATED AUTHOR AUTHOR'S ORGANIZ ATION 04/04/2025 [facility] Care Teams (unrecognized sec tion and content) Team Status: Active Member Role Status Dates Dr. Ry Adler MD Family Provider Active No Primary Care Physician Primary Care Provider Active Team Status: Inactive Member Role Status Dates Dr. Ry James DO Emergency Provider Active No Primary Care Physician Primary Care Provider Active Patent Attorney Relationship Specialty Start Date End Date Ry Adler MD [address] [place] [id number] PCP - General Family Medicine 07/03/18 Patent Attorney Relationship Specialty Start Date End Date Lesa Soler APRN.BUTTERMAKER [address] [place] [address] PCP - General Family Medicine 09/03/24 Patent Attorney Relationship Specialty Start Date End Date Lesa Soler POWDER LOADER.BUTTERMAKER [address] [place] [address] PCP - General Family Medicine 09/03/24 Patent Attorney Relationship Specialty Start Date End Date Lesa Soler POWDER LOADER.BUTTERMAKER [address] [place] [address] PCP - General Family Medicine 09/03/24 Patent Attorney Relationship Specialty Start Date End Date Lesa Soler, POWDER LOADER.BUTTERMAKER [address] [place] [address] PCP - General Family Medicine 09/03/24 Patent Attorney Relationship Specialty Start Date End Date Lesa Soler POWDER LOADER.BUTTERMAKER [address] [place] [address] PCP - General Family Medicine 09/03/24 Patent Attorney Relationship Specialty Start Date End Date Lesa Soler POWDER LOADER.BUTTERMAKER [address] [place] [address] PCP - General Family Medicine 09/03/24 Patent Attorney Relationship Specialty Start Date End Date Lesa Soler POWDER LOADER.BUTTERMAKER [address] [place] [address] PCP - General Family Medicine 09/03/24 Patent Attorney Relationship Specialty Start Date End Date Lesa Soler, POWDER LOADER.BUTTERMAKER [address] [place] [address] PCP - General Family Medicine 09/03/24 Patent Attorney Relationship Specialty Start Date End Date Lesa Soler POWDER LOADER.BUTTERMAKER [address] [place] [address] PCP - General Family Medicine 09/03/24 Team Status: Active Member Role Status Dates Lesa Soler CARPENTRY TEACHER, CARPENTRY TEACHER-C Primary Care Provider Active Team Status: Inactive Member Role Status Dates Lesa Soler CARPENTRY TEACHER, CARPENTRY TEACHER-C Primary Care Provider Active Start: February 06, 2025 End: February 06, 2025 Juan Tapia MD Emergency Provider Active Star t: February 06, 2025 End: February 06, 2025 Patent Attorney Relationship Specialty Start Date End Date Lesa Soler POWDER LOADER.BUTTERMAKER [address] [place] [address] PCP - [facility] Medicine 09/03/24 Team Status: Inactive Member Role Status Dates Lesa Soler NP, CARPENTRY TEACHER-C Primary Care Provider Active Start: February 06, 2025 End: February 06, 2025 Juan Tapia MD Attending Provider Active Star t: February 06, 2025 End: February 06, 2025 Juan Tapia MD Emergency Provider Active Star t: February 06, 2025 End: February 06, 2025 Team Status: Inactive Member Role Status Dates Lesa Soler NP, CARPENTRY TEACHER-C Primary Care Provider Active Start: March 14, 2025 End: March 14, 2025 Dr. Andres Loyola DO Emergency Provider Active Start : March 14, 2025 End: March 14, 2025 Team Status: Active Member Role/Relationship Status Dates Lesa Soler NP, CARPENTRY TEACHER-C Primary Care Provider Active Team Status: Inactive Member Role/Relationship Status Dates Lesa Soler NP, CARPENTRY TEACHER-C Primary Care Provider Active Start: February 06, 2025 End: February 06, 2025 Juan Tapia MD Attending Provider Active Star t: February 06, 2025 End: February 06, 2025 Juan Tapia MD Emergency Provider Active Star t: February 06, 2025 End: February 06, 2025 Team Status: Inactive Member Role/Relationship Status Dates Lesa Soler NP, CARPENTRY TEACHER-C Primary Care Provider Active Start: March 14, 2025 End: March 14, 2025 Dr. Andres Loyola , DO Attending Provider Active Start : March 14, 2025 End: March 14, 2025 Dr. Andres Loyola , DO Emergency Provider Active Start : March 14, 2025 End: March 14, 2025 Team Status: Inactive Member Role/Relationship Status Dates Lesa Soler NP, CARPENTRY TEACHER-C Primary Care Provider Active Start: March 30, 2025 End: March 30, 2025 Dr. Ry James , DO Emergency Provider Active Start: March 30, 2025 End: March 30, 2025 Team Status: Inactive Member Role/Relationship Status Dates Lesa Soler NP, CARPENTRY TEACHER-C Primary Care Provider Active Start: March 30, 2025 End: March 30, 2025 Dr. Ry James , Emergency Provider Active Start: March 30, 2025 [...] or prosecute any alcohol or drug abuse patient.[facility] the event this information is protected by the Federal Confidentiality of Alcohol and Drug Abuse Patient Records regulations: The Federal rules restrict any use of the information to criminally investigate or prosecute any alcohol or drug abuse patient.[facility] the event this information is protected by the Federal Confidentiality of Alcohol and Drug Abuse Patient Records regulations: The Federal rules restrict any use of the information to criminally investigate or prosecute any alcohol or drug abuse patient.[facility] Hospital[facility] the event this information is protected by the Federal Confidentiality of Alcohol and Drug Abuse Patient Records regulations: The Federal rules restrict any use of the information to criminally investigate or prosecute any alcohol or drug abuse patient.[facility] HospitalIn the event this information is protected by the Federal Confidentiality of Alcohol and Drug Abuse Patient Records regulations: The Federal rules restrict any use of the information to criminally investigate or prosecute any alcohol or drug abuse patient.[facility] Hospital[facility] the event this information is protected by the Federal Confidentiality of Alcohol and Drug Abuse Patient Records regulations: The Federal rules restrict any use of the information to criminally investigate or prosecute any alcohol or drug abuse patient.[facility] Hospital[facility] the event this information is protected by the Federal Confidentiality of Alcohol and Drug Abuse Patient Records regulations: The Federal rules restrict any use of the information to criminally investigate or prosecute any alcohol or drug abuse patient.[facility] Hospital[facility] the event this information is protected by the Federal Confidentiality of Alcohol and Drug Abuse Patient Records regulations: The Federal rules restrict any use of the information to criminally investigate or prosecute any alcohol or drug abuse patient.[facility] Hospital[facility] the event this information is protected by the Federal Confidentiality of Alcohol and Drug Abuse Patient Records regulations: The Federal rules restrict any use of the information to criminally investigate or prosecute any alcohol or drug abuse patient.[facility] Hospital[facility] the event this information is protected by the Federal Confidentiality of Alcohol and Drug Abuse Patient Records regulations: The Federal rules restrict any use of the information to criminally investigate or prosecute any alcohol or drug abuse patient.[facility] the event this information is protected by the Federal Confidentiality of Alcohol and Drug Abuse Patient Records regulations: The Federal rules restrict any use of the information to criminally investigate or prosecute any alcohol or drug abuse patient.[facility] Hospital[facility] the event this information is protected by the Federal Confidentiality of Alcohol and Drug Abuse Patient Records regulations: The Federal rules restrict any use of the information to criminally investigate or prosecute any alcohol or drug abuse patient.[facility] Hospital[facility] the event this information is protected by the Federal Confidentiality of Alcohol and Drug Abuse Patient Records regulations: The Federal rules restrict any use of the information to criminally investigate or prosecute any alcohol or drug abuse patient.[facility] Hospital[facility] the event this information is protected by the Federal Confidentiality of Alcohol and Drug Abuse Patient Records regulations: The Federal rules restrict any use of the information to criminally investigate or prosecute any alcohol or drug abuse patient.[facility] HospitalIn the event this information is protected by the Federal Confidentiality of Alcohol and Drug Abuse Patient Records regulations: The Federal rules restrict any use of the information to criminally investigate or prosecute any alcohol or drug abuse patient.[facility] Reason for Visit (unrecogniz ed section [...] THERAPY MEDICAL NUTRITION ASSMT&IVNTJ INDIV EACH 15 LA Lesa Soler, POWDER LOADER.BUTTERMAKER [address] [place] [address] [facility] [address] [place] [address] Referral ID Status Reason Start Date Expiration Date Visits Requested Visits Authorized [id number] Authorized PCP Requested Referral 09/03/2024 09/03/2025 1 4 Reason Comments Results labs Reason Comments Establish Care No concerns on depre ssion meds, does not remember the name of medication Sees psychiatrist Dr. Tamia No.for this medication. Moved her from [place] Reason Comments Reassessment Patient Education Reason Comments Head Congestion ST, [place], cough, sinus congestion x2 days Reason Onset Date Comments Results 11/12/2024 Reason Comments Infertility Specialty Diagnoses / Procedures Referred By Megan t Referred To Contact Diagnoses PCOS (polycystic ovarian syndrome) Primary female infertility Procedures CONSULT TO INFERTILITY CLINIC OFFICE/OUTPATIENT [facility] [address] [place] [address] [place] [address] Phone: tel: Referral ID Status Reason Start Date Expiration Date V isits Requested Visits Authorized [id number] Closed PCP Requested Referral Auto-Generated Referral 08/28/2024 08/28/2025 1 1 Reason Comments Diabetes Patient is going to make appointment to see eye doctor Reason Onset Date Comments ED Follow-up 02/06/2025 [facility] 025 and [facility] ED 02/08/2025 Reason Onset Date Comments ED Follow-up 03/14/2025 [facility] 2024 Reason Comments Lab Orders Reason Onset Date Comments ER F/U 03/30/2025 [facility] 2024 FOR RECORDS PERTAINING TO PATIENTS WHO ARE [...] BE BASED ON THE PRIMARY CLINICAL RECORDS. [facility]. provides no warranty or guarantee of the accuracy or completeness of information in this document.
--- OUTSIDE RECORDS SUMMARY | 2025-04-04 10:51 | XMS RPT_ITS | CCD ---
Author Organization [facility] Care Team Providers Care [place] Attendant Name Role Phone ANA Marshall RN, Joshua Jang Unavailable Unavailfranchesca Marshall RN RN, Joshua Jang Unavailable UnavailBASIM Denis Unavailable Unavailable BASIM PRINCE Unavailable Unavailable Veena BATISTA, Collette Hansen Unavailable Ry Adler MD Primary Care Provider Saturnino DIRECTOR OF EMERGENCY NURSING.Lesa GUEVARA Primary Care Provider Saturnino TRANSPORTATION ESCORT-C, Lesa Primary Care Provider Juan Tapia MD Emergency Provider NO, PHYSICIAN Primary Care Unavailable [facility] CRISOSTOMO Attending Unavailable Juan Tapia MD Attending Provider Dr. Andres Loyola DO Emergency Provider Dr. Andres Loyola DO Attending Provider [phone] Ry James DO Emergency Provider [...] tablet by mouth twice daily DOXYCYCLINE HYCLATE [id number] Collette Curiel MD DULoxetine 30 mg delayed [...] tablet by mouth three times daily METRONIDAZOLE [id number] Collette Curiel MD Drug Treatment Unknown - [...] by mouth three times daily ONDANSETRON HCL [id number] Collette Curiel MD Start: 02-28-2017 take 1 tablet by jluis th three times daily ZOFRAN 4 MG TABS One tablet by mouth three times daily ONDANSETRON HCL [id number] Collette Curiel MD VIT/IRON FUM/FOLIC AC ( [...] tablet by mouth four times daily SUCRALFATE [id number] Collette Curiel MD take 1 tablet by mouth four time s daily CARAFATE 1 GM TABS One tablet by mouth four times daily SUCRALFATE [id number] Collette Curiel MD Problems Active Problems Problem [...] width (RBC) [Ratio] 14.0 % Normal 11.5-15.0 [facility] Comment on above: Order Comment: Speci men Type: BLOOD SPECIMEN Ordering Facility: [facility] Address: [address] [place] [address] Performed By: #### 5 8410-2 #### [facility] CLIA [id number] [address] [place] [address] [place] Hematocrit (Bld) [Volume fraction] 38.4 % Normal 36.0-46.0 [facility] Comment on above: Order Comment: Speci men Type: BLOOD SPECIMEN Ordering Facility: [facility] Address: [address] [place] [address] Performed By: #### 5 8410-2 #### [facility] CLIA [id number] [address] [place] [address] [place] Hemoglobin (Bld) [Mass/Vol] 12.4 g/dL Normal 11.5-15.5 [facility] Comment on above: Order Comment: Speci men Type: BLOOD SPECIMEN Ordering Facility: [facility] Address: [address] [place] [address] Performed By: #### 5 8410-2 #### [facility] CLIA [id number] [address] [place] [address] [place] MCH (RBC) [Entitic mass] 27.9 pg Normal 26.0-34.0 [facility] Comment on above: Order Comment: Speci men Type: BLOOD SPECIMEN Ordering Facility: [facility] Address: [address] [place] [address] Performed By: #### 5 8410-2 #### [facility] CLIA [id number] [address] [place] [address] [place] MCHC (RBC) [Mass/Vol] 32.3 g/dL Normal 30.5-36.0 [facility] Comment on above: Order Comment: Speci men Type: BLOOD SPECIMEN Ordering Facility: [facility] Address: [address] [place] [address] Performed By: #### 5 8410-2 #### [facility] CLIA [id number] [address] [place] [address] [place] MCV (RBC) [Entitic vol] 86.3 fL Normal 80.0-100.0 [facility] Comment on above: Order Comment: Speci men Type: BLOOD SPECIMEN Ordering Facility: [facility] Address: [address] [place] [address] Performed By: #### 5 8410-2 #### [facility] CLIA [id number] [address] [place] [address] [place] Nucleated RBC (Bld) [#/Vol] 10*3/uL Normal <0.01 [facility] Comment on above: Order Comment: Speci men Type: BLOOD SPECIMEN Ordering Facility: [facility] Address: [address] [place] [address] Performed By: #### 5 8410-2 #### [facility] CLIA [id number] [address] [place] [address] [place] Platelet mean volume (Bld) [Entitic vol] 12.2 fL Normal 9.0-12.7 [facility] Comment on above: Order Comment: Speci men Type: BLOOD SPECIMEN Ordering Facility: [facility] Address: [address] [place] [address] Performed By: #### 5 8410-2 #### [facility] CLIA [id number] [address] [place] [address] [place] Platelets (Bld) [#/Vol] 241 10*3/uL Normal 150-400 [facility] Comment on above: Order Comment: Speci men Type: BLOOD SPECIMEN Ordering Facility: [facility] Address: [address] [place] [address] Performed By: #### 5 8410-2 #### [facility] CLIA [id number] [address] [place] [address] [place] RBC (Bld) [#/Vol] 4.45 10*6/uL Normal 3.90-5.20 [facility] Comment on above: Order Comment: Speci men Type: BLOOD SPECIMEN Ordering Facility: [facility] Address: [address] [place] [address] Performed By: #### 5 8410-2 #### [facility] CLIA [id number] [address] [place] [address] [place] WBC (Bld) [#/Vol] 9.88 10*3/uL Normal 3.70-11.00 [facility] Comment on above: Order Comment: Speci men Type: BLOOD SPECIMEN Ordering Facility: [facility] Address: [address] [place] [address] Performed By: #### 5 8410-2 #### [facility] CLIA [id number] [address] [place] [address] [place] Comprehensive metabolic 2000 panelon 04-02-2025 Albumin [Mass/Vol] 4.0 g/dL Normal 3.9-4.9 [facility] Comment on above: Order Comment: Speci men Type: BLOOD SPECIMEN Ordering Facility: [facility] Address: [address] [place] [address] Performed By: #### 5 8410-2 #### [facility] CLIA [id number] [address] [place] [address] [place] ALP [Catalytic activity/Vol] 55 U/L Normal 34-123 [facility] Comment on above: Order Comment: Speci men Type: BLOOD SPECIMEN Ordering Facility: [facility] Address: [address] [id number] Performed By: #### 5 8410-2 #### [facility] CLIA [id number] [address] [place] [address] [place] ALT [Catalytic activity/Vol] 19 U/L Normal 7-38 [facility] Comment on above: Order Comment: Speci men Type: BLOOD SPECIMEN Ordering Facility: [facility] Address: [address] [place] [address] Performed By: #### 5 8410-2 #### [facility] CLIA [id number] [address] [place] [address] [place] Anion gap [Moles/Vol] 11 mmol/L Normal 8-15 [facility] Comment on above: Order Comment: Speci men Type: BLOOD SPECIMEN Ordering Facility: [facility] Address: [address] [place] [address] Performed By: #### 5 8410-2 #### [facility] CLIA [id number] [address] [place] [address] [place] AST [Catalytic activity/Vol] 20 U/L Normal 13-35 [facility] Comment on above: Order Comment: Speci men Type: BLOOD SPECIMEN Ordering Facility: [facility] Address: [address] [id number] Performed By: #### 5 8410-2 #### [facility] CLIA [id number] [address] [place], [place] [address] [place] Bilirubin [Mass/Vol] 0.3 mg/dL Normal 0.2-1.3 [facility] Comment on above: Order Comment: Speci men Type: BLOOD SPECIMEN Ordering Facility: [facility] Address: [address] [id number] Performed By: #### 5 8410-2 #### [facility] CLIA [id number] [address] [place] [address] [place] Calcium [Mass/Vol] 10.2 mg/dL Normal 8.5-10.2 [facility] Comment on above: Order Comment: Speci men Type: BLOOD SPECIMEN Ordering Facility: [facility] Address: [address] [place] [address] Performed By: #### 5 8410-2 #### [facility] CLIA [id number] [address] [place] [address] [place] Chloride [Moles/Vol] 105 mmol/L Normal 98-107 [facility] Comment on above: Order Comment: Speci men Type: BLOOD SPECIMEN Ordering Facility: [facility] Address: [address] [place] [address] Performed By: #### 5 8410-2 #### [facility] CLIA [id number] [address] [place] [address] [place] CO2 [Moles/Vol] 23 mmol/L Normal 22-30 [facility] Comment on above: Order Comment: Speci men Type: BLOOD SPECIMEN Ordering Facility: [facility] Address: [address] [place] [address] Performed By: #### 5 8410-2 #### [facility] CLIA [id number] [address] [place] [address] [place] Creatinine [Mass/Vol] 0.77 mg/dL Normal 0.58-0.96 [facility] Comment on above: Order Comment: Speci men Type: BLOOD SPECIMEN Ordering Facility: [facility] Address: [address] [place] [address] Performed By: #### 5 8410-2 #### [facility] CLIA [id number] [address] [place] [address] [place] Creatinine and Glomerular filtration rate.predicted panel (S/P/Bld) 105 mL/min/1.73m??? Normal >=60 [facility] Comment on above: Order Comment: Speci men Type: BLOOD SPECIMEN Ordering Facility: [facility] Address: [address] [place] [address] Result Comment: Ely mated Glomerular Filtration Rate [...] GFR. Performed By: #### 5 8410-2 #### [facility] CLIA [id number] [address] [place] [address] [place] Glucose [Mass/Vol] 94 mg/dL Normal 74-99 [facility] Comment on above: Order Comment: Yelena collins Type: BLOOD SPECIMEN Ordering Facility: [facility] Address: [address] [place] [address] Result Comment: The [place] [employer] (ADA) provides guidance for cutoff [...] Standards of Medical Care in Diabetes 2016, [place] [employer]. Diabetes Care. 2016.39(Suppl 1). Performed By: #### 5 8410-2 #### [facility] CLIA [id number] [address] [place] [address] [place] Potassium [Moles/Vol] 4.0 mmol/L Normal 3.7-5.1 [facility] Comment on above: Order Comment: Yelena collins Type: BLOOD SPECIMEN Ordering Facility: [facility] Address: [address] [place] [address] Performed By: #### 5 8410-2 #### [facility] CLIA [id number] [address] [place] [address] [place] Protein [Mass/Vol] 6.6 g/dL Normal 6.3-8.0 [facility] Comment on above: Order Comment: Speci men Type: BLOOD SPECIMEN Ordering Facility: [facility] Address: [address] [place] [address] Performed By: #### 5 8410-2 #### [facility] CLIA [id number] [address] [place] [address] [place] Sodium [Moles/Vol] 139 mmol/L Normal 136-144 [facility] Comment on above: Order Comment: Speci men Type: BLOOD SPECIMEN Ordering Facility: [facility] Address: [address] [place] [address] Performed By: #### 5 8410-2 #### [facility] CLIA [id number] [address] [place] [address] [place] Urea nitrogen [Mass/Vol] 10 mg/dL Normal 7-21 [facility] Comment on above: Order Comment: Speci men Type: BLOOD SPECIMEN Ordering Facility: [facility] Address: [address] [place] [address] Performed By: #### 5 8410-2 #### [facility] CLIA [id number] [address] [place] [address] [place] Lipid 1996 panelon 5 Cholesterol [Mass/Vol] 156 mg/dL Normal <200 [facility] Comment on above: Order Comment: Speci men Type: BLOOD SPECIMEN Ordering Facility: [facility] Address: [address] [place] [address] Result Comment: <200 mg/dL, Desirable 200-239 mg/dL, Borderline high >239 mg/dL, High Performed By: #### 5 8410-2 #### [facility] CLIA [id number] [address] [place] [address] [place] Cholesterol in HDL [Mass/Vol] 34 mg/dL Low >39 [facility] Comment on above: Order Comment: Yelena dennis Type: BLOOD SPECIMEN Ordering Facility: [facility] Address: [address] [place] [address] Result Comment: 40-5 9 mg/dL, Acceptable >59 mg/dL, High: Negative risk factor for coronary heart disease <40 mg/dL, Low: Positive risk factor for coronary heart disease Performed By: #### 5 8410-2 #### [facility] CLIA [id number] [address] [place] [address] OF [facility] Cholesterol in LDL [Mass/Vol] 102 mg/dL High <100 [facility] Comment on above: Order Comment: Yelena dennis Type: BLOOD SPECIMEN Ordering Facility: [facility] Address: [address] [place] [address] Result Comment: <100 mg/dL, Optimal 100-129 mg/dL, Near optimal/above optimal 130-159 mg/dL, Borderline high 160-189 mg/dL, High >189 mg/dL, Very high Secondary prevention optimal LDL Cholesterol levels are recommended to be <70 mg/dL LDL cholesterol is calculated using the Carpenter-NIH equation. Performed By: #### 5 8410-2 #### [facility] CLIA [id number] [address] [place] [address] OF [facility] Cholesterol in LDL/Cholesterol in HDL [Mass ratio] 3.00 {ratio} High <2.54 [facility] Comment on above: Order Comment: Yelena collins Type: BLOOD SPECIMEN Ordering Facility: [facility] Address: [address] [place] [address] Result Comment: Refemily paulino: 1. National Cholesterol Education Program ATP III Guideline At-A-Glance Quick Desk Reference: National Heart, Lung, and Blood [place]. National Institutes of Health. 2001: NIH Publication No. 01-3305. 2. An International Atherosclerosis Society position paper: global recommendations for the management of dyslipidemia: executive summary, Atherosclerosis. 2014: 232(2):410-413. Performed By: #### 5 8410-2 #### [facility] CLIA [id number] [address] [place] [address] [place] Cholesterol in VLDL [Mass/Vol] 18 mg/dL Normal <30 [facility] Comment on above: Order Comment: Speci men Type: BLOOD SPECIMEN Ordering Facility: [facility] Address: [address] [place] [address] Performed By: #### 5 8410-2 #### [facility] CLIA [id number] [address] [place] [address] [place] Cholesterol non HDL [Mass/Vol] 122 mg/dL Normal <130 [facility] Comment on above: Order Comment: Speci men Type: BLOOD SPECIMEN Ordering Facility: [facility] Address: [address] [place] [address] Result Comment: <130 mg/dL, Optimal 130-159 mg/dL, Near optimal/above optimal 160-189 mg/dL, Borderline high 190-219 mg/dL, High >219 mg/dL, Very high Secondary prevention optimal non HDL Cholesterol levels are recommended to be <100 mg/dL Performed By: #### 5 8410-2 #### [facility] CLIA [id number] [address] [place] [address] [place] Cholesterol.total/Cho lesterol in HDL [Mass ratio] 4.59 {ratio} Normal <5.10 [facility] Comment on above: Order Comment: Speci men Type: BLOOD SPECIMEN Ordering Facility: [facility] Address: [address] [place] [address] Performed By: #### 5 8410-2 #### [facility] CLIA [id number] [address] [place] [address] [place] FASTING TIME 12 hrs Normal [facility] Comment on above: Order Comment: Speci men Type: BLOOD SPECIMEN Ordering Facility: [facility] Address: [address] [place] [address] Performed By: #### 5 8410-2 #### [facility] CLIA [id number] [address] [place] [address] [place] Triglyceride [Mass/Vol] 110 mg/dL Normal <150 [facility] Comment on above: Order Comment: Speci men Type: BLOOD SPECIMEN Ordering Facility: [facility] Address: [address] [place] [address] Result Comment: <150 mg/dL, Normal 150-199 mg/dL, Borderline high 200-499 mg/dL, High >499 mg/dL, Very high Performed By: #### 5 8410-2 #### [facility] CLIA [id number] [address] [place] [address] [place] Absolute lymphocyte countOrd ered By: Ry James on 03-30-2025 Lymphocytes Auto (Unsp spec) [#/Vol] 1.38 10*3/uL 0.83-4.51 [facility] Absolute neutrophil countOrd ered By: Ry James on 03-30-2025 Neutrophils (Bld) [#/Vol] 9.0 10*3/uL High 2.0-7.7 [facility] Anion gap in Serum or Plasma Ordered By: Ry James on 03-30-2025 Anion gap [Moles/Vol] 10 mmol/L 5-15 [facility] Automated lymphocyte count a s percentage of total leukocytesOrdered By: Ry James on 03-30-2025 Lymphocytes/100 WBC Auto (Unsp spec) 12.9 % Low 19-41 [facility] BUN/creatinine ratioOrdered By: Ry James on 03-30-2025 Urea nitrogen/Creatinine [Mass ratio] 9.3 mg/mg Low 10-20 [facility] Basophil percentageOrdered B y: Ry James on 03-30-2025 Basophils/100 WBC (Bld) 0.4 % 0-1 [facility] Bilirubin Test strip Ql (U)O rdered By: Ry James on 03-30-2025 Bilirubin Ql (U) Negative Negative [facility] Bilirubin, totalOrdered By: Ry James on 03-30-2025 Bilirubin [Mass/Vol] 0.44 mg/dL 0.00-1.30 [facility] CBC W/Diff, Automatedon 06-2 Absolute Lymph 1.38 X10 3/uL Normal 0.83-4.51 [facility] Comment on above: Performed By: #### L 501.2450, L700.6800, L100.0100, L500.4050 #### [facility] [address] [place], [address] Absolute Neut 9.0 X10 3/uL High 2.0-7.7 [facility] Comment on above: Performed By: #### L 501.2450, L700.6800, L100.0100, L500.4050 #### [facility] [address] [place], [address] Basophils/100 WBC (Bld) 0.4 % Normal 0-1 [facility] Comment on above: Performed By: #### L 501.2450, L700.6800, L100.0100, L500.4050 #### [facility] [address] [place], [address] Eosinophils/100 WBC (Bld) 0.0 % Normal 0-5 [facility] Comment on above: Performed By: #### L 501.2450, L700.6800, L100.0100, L500.4050 #### [facility] [address] [place], [address] Erythrocyte distribution width (RBC) [Ratio] 13.8 % Normal 11.6-14.6 [facility] Comment on above: Performed By: #### L 501.2450, L700.6800, L100.0100, L500.4050 #### [facility] [address] [place], [address] Hematocrit (Bld) [Volume fraction] 40.3 % Normal 37-47 [facility] Comment on above: Performed By: #### L 501.2450, L700.6800, L100.0100, L500.4050 #### [facility] [address] [place], [address] Hemoglobin (Bld) [Mass/Vol] 13.0 g/dL Normal 12.0-15.0 [facility] Comment on above: Performed By: #### L 501.2450, L700.6800, L100.0100, L500.4050 #### [facility] [address] [place], [address] IG% 0.400 Normal 0.0-0.9 [facility] Comment on above: Result Comment: IG% - Immature Granulocytes (promyelocytes, myelocytes and metamyelocytes) > 1% indicates that a LEFT SHIFT is Present. Performed By: #### L 501.2450, L700.6800, L100.0100, L500.4050 #### [facility] [address] [place], [address] Lymphocytes/100 WBC (Bld) 12.9 % Low 19-41 [facility] Comment on above: Performed By: #### L 501.2450, L700.6800, L100.0100, L500.4050 #### [facility] [address] [place], [address] MCH (RBC) [Entitic mass] 27.4 pg Normal 27.0-32.0 [facility] Comment on above: Performed By: #### L 501.2450, L700.6800, L100.0100, L500.4050 #### [facility] [address] [place], [address] MCHC (RBC) [Mass/Vol] 32.3 g/dL Normal 32-36 [facility] Comment on above: Performed By: #### L 501.2450, L700.6800, L100.0100, L500.4050 #### [facility] [address] [place], [address] MCV (RBC) [Entitic vol] 85.0 fL Normal 81-99 [facility] Comment on above: Performed By: #### L 501.2450, L700.6800, L100.0100, L500.4050 #### [facility] [address] [place], [address] Monocytes/100 WBC (Bld) 2.3 % Normal 0-10 [facility] Comment on above: Performed By: #### L 501.2450, L700.6800, L100.0100, L500.4050 #### [facility] [address] [place], [address] Neutrophils/100 WBC (Bld) 84.0 % High 47-70 [facility] Comment on above: Performed By: #### L 501.2450, L700.6800, L100.0100, L500.4050 #### [facility] [address] [place], [address] Nucleated RBC (Bld) [#/Vol] 0 10*3/uL Normal 0-5 [facility] Comment on above: Performed By: #### L 501.2450, L700.6800, L100.0100, L500.4050 #### [facility] [address] [place], [address] Platelet mean volume (Bld) [Entitic vol] 10.8 fL Normal 6.2-12.0 [facility] Comment on above: Performed By: #### L 501.2450, L700.6800, L100.0100, L500.4050 #### [facility] [address] [place], [address] Platelets (Bld) [#/Vol] 259 10*3/uL Normal 150-450 [facility] Comment on above: Performed By: #### L 501.2450, L700.6800, L100.0100, L500.4050 #### [facility] [address] [place], [address] RBC (Bld) [#/Vol] 4.74 10*6/uL Normal 4.2-5.4 [facility] Comment on above: Performed By: #### L 501.2450, L700.6800, L100.0100, L500.4050 #### [facility] [address] [place], [address] RDW SD 42.8 fl Normal 35.1-43.9 [facility] Comment on above: Performed By: #### L 501.2450, L700.6800, L100.0100, L500.4050 #### [facility] [address] [place], [address] WBC (Bld) [#/Vol] 10.7 10*3/uL Normal 4.4-11.0 [facility] Comment on above: Performed By: #### L 501.2450, L700.6800, L100.0100, L500.4050 #### [facility] [address] [place], [address] Carbon dioxide, total [Moles /volume] in Central venous bloodOrdered By: Ry James on 03-30-2025 CO2 [Moles/Vol] 25.4 mmol/L 21.0-32.0 [facility] Chloride assayOrdered By: Lion James on 03-30-2025 Chloride [Moles/Vol] 104 mmol/L 98-108 [facility] Comprehensive Metabolic Prof ilon 03-30-2025 Albumin [Mass/Vol] 4.6 g/dL Normal 3.5-5.0 [facility] Comment on above: Performed By: #### L 501.2450, L700.6800, L100.0100, L500.4050 #### [facility] [address] [place], [address] Albumin/Globulin [Mass ratio] 1.5 {ratio} Normal 0.9-2.4 [facility] Comment on above: Performed By: #### L 501.2450, L700.6800, L100.0100, L500.4050 #### [facility] [address] [place], [address] ALK PHOS 63 U/L Normal 35-104 [facility] Comment on above: Performed By: #### L 501.2450, L700.6800, L100.0100, L500.4050 #### [facility] [address] [place], [address] ALT [Catalytic activity/Vol] 29 U/L Normal <=34 [facility] Comment on above: Performed By: #### L 501.2450, L700.6800, L100.0100, L500.4050 #### [facility] [address] [place], [address] AST [Catalytic activity/Vol] 26 U/L Normal <=31 [facility] Comment on above: Performed By: #### L 501.2450, L700.6800, L100.0100, L500.4050 #### [facility] [address] [place], [address] Bilirubin [Mass/Vol] 0.44 mg/dL Normal 0.00-1.30 [facility] Comment on above: Performed By: #### L 501.2450, L700.6800, L100.0100, L500.4050 #### [facility] [address] [place], [address] BUN/CRE 9.3 RATIO Low 10-20 [facility] Comment on above: Performed By: #### L 501.2450, L700.6800, L100.0100, L500.4050 #### [facility] [address] [place], [address] Calcium [Mass/Vol] 10.7 mg/dL Normal 7.6-11.0 [facility] Comment on above: Performed By: #### L 501.2450, L700.6800, L100.0100, L500.4050 #### [facility] [address] [place], [address] Chloride [Moles/Vol] 104 mmol/L Normal 98-108 [facility] Comment on above: Performed By: #### L 501.2450, L700.6800, L100.0100, L500.4050 #### [facility] [address] [place], [address] CO2 [Moles/Vol] 25.4 mmol/L Normal 21.0-32.0 [facility] Comment on above: Performed By: #### L 501.2450, L700.6800, L100.0100, L500.4050 #### [facility] [address] [place], [address] Creatinine [Mass/Vol] 0.80 mg/dL Normal 0.70-1.20 [facility] Comment on above: Performed By: #### L 501.2450, L700.6800, L100.0100, L500.4050 #### [facility] [address] [place], [address] ECRCL 109.80 ml/min Normal 50-250 [facility] Comment on above: Performed By: #### L 501.2450, L700.6800, L100.0100, L500.4050 #### [facility] [address] [place], [address] GAP 10 Normal 5-15 [facility] Comment on above: Performed By: #### L 501.2450, L700.6800, L100.0100, L500.4050 #### [facility] [address] [place], [address] GFR/1.73 sq M.predicted among non-blacks MDRD (S/P/Bld) [Vol rate/Area] 101 mL/min/{1.73_m2} Normal >60 [facility] Comment on above: Result Comment: mL/m in/1.73m2 CKD-EPI Creatinine Equation (2020) Performed By: #### L 501.2450, L700.6800, L100.0100, L500.4050 #### [facility] [address] [place], [address] Globulin (S) [Mass/Vol] 3.1 g/dL Normal 2.2-4.2 [facility] Comment on above: Performed By: #### L 501.2450, L700.6800, L100.0100, L500.4050 #### [facility] [address] [place], [address] Glucose [Mass/Vol] 129 mg/dL High 70-99 [facility] Comment on above: Performed By: #### L 501.2450, L700.6800, L100.0100, L500.4050 #### [facility] [address] [place], [address] Potassium [Moles/Vol] 4.1 mmol/L Normal 3.3-5.1 [facility] Comment on above: Performed By: #### L 501.2450, L700.6800, L100.0100, L500.4050 #### [facility] [address] [place], [address] Sodium [Moles/Vol] 139 mmol/L Normal 133-145 [facility] Comment on above: Performed By: #### L 501.2450, L700.6800, L100.0100, L500.4050 #### [facility] [address] [place], [address] T PROT 7.7 g/dL Normal 5.9-8.4 [facility] Comment on above: Performed By: #### L 501.2450, L700.6800, L100.0100, L500.4050 #### [facility] [address] [place], [address] Urea nitrogen [Mass/Vol] 7 mg/dL Normal 4-19 [facility] Comment on above: Performed By: #### L 501.2450, L700.6800, L100.0100, L500.4050 #### [facility] [address] [place], [address] Emergency Department Summary on 03-30-2025 Emergency Department Summary [facility] Medical Records Department [address] [place] [address] Emergency Department Summary 03/30/25 MR#: [id number] Acct: [id number] Name: JOSHUA CHOUDHARY Rep #: [id number] : 1995 30 From: Ry James DO [...] Patient denies any neck or back pain. [facility] Medical History Anxiety Anxiety disorder Cannabis use [...] 0 current occupational status: employed current occupation: [employer] Smoking Status: Current every day [...] (more content not included)... Normal [facility] Emergency Department Summary [facility] Medical Records Department [address] [place] [address] Emergency Department Summary 03/30/25 MR#: [id number] Acct: [id number] Name: JOSHUA CHOUDHARY Rep #: [id number] : 1995 30 From: Ry James DO [...] 0 current occupational status: employed current occupation: [employer] Smoking Status: Current every day [...] (more content not included)... Normal [facility] Eosinophil percentageOrdered By: Ry James on 03-30-2025 Eosinophils/100 WBC (Bld) 0.0 % 0-5 [facility] Erythrocyte distribution wid th ratioOrdered By: Ry James on 03-30-2025 Erythrocyte distribution width (RBC) [Ratio] 13.8 % 11.6-14.6 [facility] Erythrocyte distribution wid th standard deviationOrdered By: Ry James on 03-30-2025 Erythrocyte distribution width (RBC) [Ratio] 42.8 fl 35.1-43.9 [facility] Glomerular filtration rate ( GFR) estimation/1.73 sq m using serum, plasma, or whole bOrdered By: Ry James on 03-30-2025 GFR/1.73 sq M.predicted among non-blacks MDRD (S/P/Bld) [Vol rate/Area] 101 mL/min/{1.73_m2} >60 [facility] Comment on above: mL/min/1.73m2 CKD-EP I Creatinine Equation (2020) Hematocrit Auto (Bld) [Volum e fraction]Ordered By: Ry James on 03-30-2025 Hematocrit (Bld) [Volume fraction] 40.3 % 37-47 [facility] Hemoglobin measurementOrdere d By: Ry James on 03-30-2025 Hemoglobin (Bld) [Mass/Vol] 13.0 g/dL 12.0-15.0 [facility] Immature granulocytes/100 WB C Auto (Bld)Ordered By: Ry James on 03-30-2025 Immature granulocytes/100 WBC (Bld) 0.400 % 0.0-0.9 [facility] Comment on above: IG% - Immature Granu locytes (promyelocytes, myelocytes and metamyelocytes) > 1% indicates that a LEFT SHIFT is Present. Ketones Test strip Ql (U)Ord ered By: Ry James on 03-30-2025 Ketones Ql (U) Negative Negative [facility] - Chemistry and C hemistry - challengeOrdered By: Ry James on 03-30-2025 AST [Catalytic activity/Vol] 26 U/L <32 [facility] Lipaseon 03-30-2025 Lipase [Catalytic activity/Vol] 32 U/L Normal 13-75 [facility] Comment on above: Result Comment: Plechasidy porter note: LIPASE revised reference range effective 23. New Lipase methodology. Expected to produce lower values than the previous assay method. NEW Reference Range: 13 - 75 U/L Performed By: #### L 501.2450, L700.6800, L100.0100, L500.4050 #### [facility] [address] [place], [address] Lipase measurementOrdered By : Ry James on 03-30-2025 Lipase [Catalytic activity/Vol] 32 U/L 13-75 [facility] Comment on above: Please note:LIPASE r evised reference range effective 23. New Lipase methodology. Expected to produce lower values than the previous assay method. NEW Reference Range: 13 - 75 U/L MCV (mean corpuscular volume ) determinationOrdered By: Ry James on 03-30-2025 MCV (RBC) [Entitic vol] 85.0 fL 81-99 [facility] Mean corpuscular hemoglobin (MCH) determinationOrdered By: Ry James on 03-30-2025 MCH (RBC) [Entitic mass] 27.4 pg 27.0-32.0 [facility] Mean corpuscular hemoglobin concentration (MCHC) determinationOrdered By: Ry James on 03-30-2025 MCHC (RBC) [Mass/Vol] 32.3 g/dL 32-36 [facility] Mean platelet volume determi nationOrdered By: Ry James on 03-30-2025 Platelet mean volume (Bld) [Entitic vol] 10.8 fL 6.2-12.0 [facility] Microscopic analysis of urin e for red blood cells (RBC)Ordered By: Ry James on 03-30-2025 Microscopic analysis of urine for red blood cells (RBC) 0 SEEN /hpf 0-5 [facility] Monocyte percentageOrdered B y: Ry James on 03-30-2025 Monocytes/100 WBC (Bld) 2.3 % 0-10 [facility] Mucus LM Ql (Urine sed)Order ed By: Ry James on 03-30-2025 Mucus Ql (Urine sed) 1+ /hpf [facility] Neutrophil percentageOrdered By: Ry James on 03-30-2025 Neutrophils/100 WBC (Bld) 84.0 % High 47-70 [facility] Nitrite Test strip Ql (U)Ord ered By: Ry James on 03-30-2025 Nitrite Ql (U) Negative Negative [facility] Nucleated red blood cell per centageOrdered By: Ry James on 03-30-2025 Nucleated RBC/100 WBC (Bld) [Ratio] 0 % 0-5 [facility] Platelet countOrdered By: Lion James on 03-30-2025 Platelets (Bld) [#/Vol] 259 10*3/uL 150-450 [facility] Potassium measurement (mass/ volume)Ordered By: Ry James on 03-30-2025 Potassium (Unsp spec) [Mass/Vol] 4.1 mmol/L 3.3-5.1 [facility] ,Serum,hCG Quali.on 03-30-2025 HCG, SERUM QUAL Negative Normal [facility] Comment on above: Performed By: #### L 501.2450, L700.6800, L100.0100, L500.4050 #### [facility] [address] [place], [address] Protein Test strip Ql (U)Ord ered By: Ry James on 03-30-2025 Protein Ql (U) 15 mg/dl High Negative [facility] RBC Auto (Bld) [#/Vol]Ordere d By: Ry James on 03-30-2025 RBC (Bld) [#/Vol] 4.74 10*6/uL 4.2-5.4 [facility] Serum beta-hCG test, qualita tiveOrdered By: Ry James on 03-30-2025 Beta HCG ( test) Ql Negative [facility] Serum creatinine measurement (mass/volume)Ordered By: Ry James on 03-30-2025 Creatinine [Mass/Vol] 0.80 mg/dL 0.70-1.20 [facility] Serum globulin measurementOr dered By: Ry Jamse on 03-30-2025 Globulin (S) [Mass/Vol] 3.1 g/dL 2.2-4.2 [facility] Serum glucose measurement (m ass/volume)Ordered By: Ry James on 03-30-2025 Glucose [Mass/Vol] 129 mg/dL High 70-99 [facility] Serum or plasma alanine peterson otransferase (ALT) measurementOrdered By: Ry James on 03-30-2025 ALT [Catalytic activity/Vol] 29 U/L <35 [facility] Serum or plasma albumin prakash urement (mass/volume)Ordered By: Ry James on 03-30-2025 Albumin [Mass/Vol] 4.6 g/dL 3.5-5.0 [facility] Serum or plasma albumin/glob ulin mass ratioOrdered By: Ry James on 03-30-2025 Albumin/Globulin [Mass ratio] 1.5 {ratio} 0.9-2.4 [facility] Serum or plasma alkaline frandy sphatase measurementOrdered By: Ry James on 03-30-2025 ALP [Catalytic activity/Vol] 63 U/L 35-104 [facility] Serum or plasma calcium prakash urement (mass/volume)Ordered By: Ry James on 03-30-2025 Calcium [Mass/Vol] 10.7 mg/dL 7.6-11.0 [facility] Serum or plasma urea nitroge n measurement (mass/volume)Ordered By: Ry James on 03-30-2025 Urea nitrogen [Mass/Vol] 7 mg/dL 4-19 [facility] Sodium levelOrdered By: Ry James on 03-30-2025 Sodium [Moles/Vol] 139 mmol/L 133-145 [facility] Squamous epithelial cells de tection in urine sediment by light microscopyOrdered By: Ry James on 03-30-2025 Epithelial cells.squamous LM Ql (Urine sed) 0-5 SEEN /hpf - [facility] Total proteinOrdered By: Marian James on 03-30-2025 Protein [Mass/Vol] 7.7 g/dL 5.9-8.4 [facility] Urinalysis, Completeon 03-30 BACTERIA RARE Normal None Seen [facility] Comment on above: Order Comment: CLEAN CATCH Performed By: #### L 505.5000, L501.9100, L501.2450, L700.6800, L100.0100, L500.4050 #### [facility] [address] [place], [address] EPI,SQUAMOUS 0-5 SEEN Normal 5-10 [facility] Comment on above: Order Comment: CLEAN CATCH Performed By: #### L 505.5000, L501.9100, L501.2450, L700.6800, L100.0100, L500.4050 #### [facility] [address] [place], [place], [address] Mucus Ql (Urine sed) 1+ /hpf Normal [facility] Comment on above: Order Comment: CLEAN CATCH Performed By: #### L 505.5000, L501.9100, L501.2450, L700.6800, L100.0100, L500.4050 #### [facility] [address] [place], [place], [address] WBC 0-5 SEEN Normal 0-5 [facility] Comment on above: Order Comment: CLEAN CATCH Performed By: #### L 505.5000, L501.9100, L501.2450, L700.6800, L100.0100, L500.4050 #### [facility] [address] [place], [place], [address] RBC 0 SEEN Normal 0-5 [facility] Comment on above: Order Comment: CLEAN CATCH Performed By: #### L 505.5000, L501.9100, L501.2450, L700.6800, L100.0100, L500.4050 #### [facility] [address] [place], [place], [address] Urine clarityOrdered By: Marina James on 03-30-2025 Clarity (U) Clear Clear [facility] Urine color determinationOrd ered By: Ry James on 03-30-2025 Color (U) Yellow Yellow [facility] Urine glucose detectionOrder ed By: Ry James on 03-30-2025 Glucose Ql (U) Normal mg/dl Normal [facility] Urine leukocyte esterase det ection by dipstickOrdered By: Ry James on 03-30-2025 Leukocyte esterase Test strip Ql (U) 25 /ul High Negative [facility] Urine pHOrdered By: Ry giraldo on 03-30-2025 pH (U) 6.5 [pH] 5.0 - 8.0 [facility] Urine sediment bacteria coun t by microscopy (number/high power field)Ordered By: Ry James on 03-30-2025 Bacteria LM.HPF (Urine sed) [#/Area] RARE /hpf None Seen [facility] Urine specific gravity measu rementOrdered By: Ry James on 03-30-2025 Specific gravity (U) [Rel density] 1.015 1.002-1.03 0 [facility] Urine urobilinogen measureme ntOrdered By: Ry James on 03-30-2025 Urobilinogen Ql (U) Normal mg/dl Normal [facility] White blood cell (WBC) count Ordered By: Ry James on 03-30-2025 WBC (Bld) [#/Vol] 10.7 10*3/uL 4.4-11.0 [facility] White blood cell countOrdere d By: Ry James on 03-30-2025 White blood cell count 0-5 SEEN /hpf 0-5 [facility] CNPNon 03-21-2025 CNPN Telephone (YULYFAMPMILLA) JOSHUA CHOUDHARY ([id number]) 1995 F Date Time Provider Department 03/21/25 [...] Date Reviewed: 11/27/2024 Reviewed by: Lesa Soler APRN.WATER ATTENDANT - Fully Assessed Reason for Visit: Lab Orders [1688] Primary Visit Diagnosis:Dyslipidemia [E78.5] Order(s):COMPLETE BLOOD COUNT [SQCBC] Order #: [id number] FUTURE COMPREHENSIVE METABOLIC PANEL [SQCMP] Order #: [id number] FUTURE LIPID PANEL, FASTING [SQLIPB] Order #: [id number] FUTURE Prescriptions as of 03/21/2025 - venlafaxine [...] Status:Closed by MYRA DURAN on 03/21/25 Normal [facility] Anion gap in Serum or Plasma Ordered By: Andres Loyola on 03-14-2025 Anion gap [Moles/Vol] 12 mmol/L 02-13 [facility] BUN/creatinine ratioOrdered By: Andres Loyola on 03-14-2025 Urea nitrogen/Creatinine [Mass ratio] 12.5 mg/mg 07-21 [facility] Basic Metabolic Profile (BMP )on 03-14-2025 BUN/CRE 12.5 RATIO Normal 07-21 [facility] Comment on above: Performed By: #### L 505.5000, L501.9100, L501.2450, L700.6800, L100.0100, L500.4050 #### [facility] [address] [place], [address] Calcium [Mass/Vol] 11.1 mg/dL High 7.6-11.0 [facility] Comment on above: Performed By: #### L 505.5000, L501.9100, L501.2450, L700.6800, L100.0100, L500.4050 #### [facility] [address] [place], [address] Chloride [Moles/Vol] 103 mmol/L Normal 98-108 [facility] Comment on above: Performed By: #### L 505.5000, L501.9100, L501.2450, L700.6800, L100.0100, L500.4050 #### [facility] [address] [place], [address] CO2 [Moles/Vol] 25.3 mmol/L Normal 21.0-32.0 [facility] Comment on above: Performed By: #### L 505.5000, L501.9100, L501.2450, L700.6800, L100.0100, L500.4050 #### [facility] [address] [place], [address] Creatinine [Mass/Vol] 0.77 mg/dL Normal 0.70-1.20 [facility] Comment on above: Performed By: #### L 505.5000, L501.9100, L501.2450, L700.6800, L100.0100, L500.4050 #### [facility] [address] [place], [address] ECRCL 112.39 ml/min Normal 50-250 [facility] Comment on above: Performed By: #### L 505.5000, L501.9100, L501.2450, L700.6800, L100.0100, L500.4050 #### [facility] [address] [place], [address] GAP 12 Normal 5-15 [facility] Comment on above: Performed By: #### L 505.5000, L501.9100, L501.2450, L700.6800, L100.0100, L500.4050 #### [facility] [address] [place], [address] GFR/1.73 sq M.predicted among non-blacks MDRD (S/P/Bld) [Vol rate/Area] 106 mL/min/{1.73_m2} Normal >60 [facility] Comment on above: Result Comment: mL/m in/1.73m2 CKD-EPI Creatinine Equation (2020) Performed By: #### L 505.5000, L501.9100, L501.2450, L700.6800, L100.0100, L500.4050 #### [facility] [address] [place], [address] Glucose [Mass/Vol] 147 mg/dL High 70-99 [facility] Comment on above: Performed By: #### L 505.5000, L501.9100, L501.2450, L700.6800, L100.0100, L500.4050 #### [facility] [address] [place], [address] Potassium [Moles/Vol] 3.8 mmol/L Normal 3.3-5.1 [facility] Comment on above: Performed By: #### L 505.5000, L501.9100, L501.2450, L700.6800, L100.0100, L500.4050 #### [facility] [address] [place], [address] Sodium [Moles/Vol] 140 mmol/L Normal 133-145 [facility] Comment on above: Performed By: #### L 505.5000, L501.9100, L501.2450, L700.6800, L100.0100, L500.4050 #### [facility] [address] [place], [address] Urea nitrogen [Mass/Vol] 10 mg/dL Normal 4-19 [facility] Comment on above: Performed By: #### L 505.5000, L501.9100, L501.2450, L700.6800, L100.0100, L500.4050 #### [facility] [address] [place], [address] Carbon dioxide, total [Moles /volume] in Central venous bloodOrdered By: Andres Loyola on 03-14-2025 CO2 [Moles/Vol] 25.3 mmol/L 21.0-32.0 [facility] Chloride assayOrdered By: Jonathon Loyola on 03-14-2025 Chloride [Moles/Vol] 103 mmol/L 98-108 [facility] Emergency Department Summary on 03-14-2025 Emergency Department Summary [facility] Medical Records Department [address] [place] [address] Emergency Department Summary 03/14/25 MR#: [id number] Acct: [id number] Name: JOSHUA CHOUDHARY Rep #: [id number] : 1995 30 From: Andres Pedroza PCP: [...] 0 current occupational status: employed current occupation: [employer] Smoking Status: Current every day [...] (more content not included)... Normal [facility] Glomerular filtration rate ( GFR) estimation/1.73 sq m using serum, plasma, or whole bOrdered By: Andres Loyola on 03-14-2025 GFR/1.73 sq M.predicted among non-blacks MDRD (S/P/Bld) [Vol rate/Area] 106 mL/min/{1.73_m2} >60 [facility] Comment on above: mL/min/1.73m2 CKD-EP I Creatinine Equation (2020) Potassium measurement (mass/ volume)Ordered By: Andres Loyola on 03-14-2025 Potassium (Unsp spec) [Mass/Vol] 3.8 mmol/L 3.3-5.1 [facility] ,Serum,hCG Quali.on 03-14-2025 HCG, SERUM QUAL Negative Normal [facility] Comment on above: Performed By: #### L 505.5000, L501.9100, L501.2450, L700.6800, L100.0100, L500.4050 #### [facility] [address] [place], [address] Serum beta-hCG test, qualita tiveOrdered By: Andres Loyola on 03-14-2025 Beta HCG ( test) Ql Negative [facility] Serum creatinine measurement (mass/volume)Ordered By: Andres Loyola on 03-14-2025 Creatinine [Mass/Vol] 0.77 mg/dL 0.70-1.20 [facility] Serum glucose measurement (m ass/volume)Ordered By: Andres Loyola on 03-14-2025 Glucose [Mass/Vol] 147 mg/dL High 70-99 [facility] Serum or plasma calcium prakash urement (mass/volume)Ordered By: Andres Loyola on 03-14-2025 Calcium [Mass/Vol] 11.1 mg/dL High 7.6-11.0 [facility] Serum or plasma urea nitroge n measurement (mass/volume)Ordered By: Andres Loyola on 03-14-2025 Urea nitrogen [Mass/Vol] 10 mg/dL 4-19 [facility] Sodium levelOrdered By: Andres Loyola on 03-14-2025 Sodium [Moles/Vol] 140 mmol/L 133-145 [facility] ED Prov Noteon 02-08-2025 ED Prov Note [...] are negative. PAST HISTORY Past Medical History: @[facility]@ Past Surgical History: has no [...] needed for itching . Follow-up: [facility] [address] [facility] [address] [facility] [id number] In 3 days Final Impression: 1. Panic attack (Please note that portions of this note were completed with a voice recognition program. Efforts were made to edit the dictations but occasionally words are mis-transcribed.) Wu Crisostomo MD 02/08/25 0854 AUTHENTICATED BY WU CRISOSTOMO, ON 02/08/2025 08:54:48 Normal [facility] Absolute lymphocyte countOrd ered By: Juan Tapia on 02-06-2025 Lymphocytes Auto (Unsp spec) [#/Vol] 2.06 10*3/uL 0.83-4.51 [facility] Absolute neutrophil countOrd ered By: Juan Tapia on 02-06-2025 Neutrophils (Bld) [#/Vol] 12.2 10*3/uL High 2.0-7.7 [facility] Alcohol, Blood (Medical)-Ser umon 02-06-2025 SERUM ETOH < 10.1 Normal <=10.0 [facility] Comment on above: Result Comment: Hemo lysis Present, Results may be affected. This test is for medical purposes only. The legal definition of intoxication varies according to local law. Performed By: #### L 505.5000, L501.9100, L501.2450, L700.6800, L100.0100, L500.4050 #### [facility] [address] [facility] [place], [place], [id number] Amphetamine detection with 1 000 ng/mL as cutoffOrdered By: Juan Tapia on 02-06-2025 Amphetamines Screen method >1000 ng/mL Ql (U) Negative < 200 ng/mL [facility] Anion gap in Serum or Plasma Ordered By: Juan Tapia on 02-06-2025 Anion gap [Moles/Vol] 11 mmol/L 5-15 [facility] Automated lymphocyte count a s percentage of total leukocytesOrdered By: Juan Tapia on 02-06-2025 Lymphocytes/100 WBC Auto (Unsp spec) 13.9 % Low 19-41 [facility] BUN/creatinine ratioOrdered By: Juan Tapia on 02-06-2025 Urea nitrogen/Creatinine [Mass ratio] 9.7 mg/mg Low 10-20 [facility] Basophil percentageOrdered B y: Juan Tapia on 02-06-2025 Basophils/100 WBC (Bld) 0.2 % 0-1 [facility] Bilirubin, totalOrdered By: Juan Tapia on 02-06-2025 Bilirubin [Mass/Vol] 0.41 mg/dL 0.00-1.30 [facility] CBC W/Diff, Automatedon Absolute Lymph 2.06 X10 3/uL Normal 0.83-4.51 [facility] Comment on above: Performed By: #### L 505.5000, L501.9100, L501.2450, L700.6800, L100.0100, L500.4050 #### [facility] [address] [place], [address] Absolute Neut 12.2 X10 3/uL High 2.0-7.7 [facility] Comment on above: Performed By: #### L 505.5000, L501.9100, L501.2450, L700.6800, L100.0100, L500.4050 #### [facility] [address] [place], [address] Basophils/100 WBC (Bld) 0.2 % Normal 0-1 [facility] Comment on above: Performed By: #### L 505.5000, L501.9100, L501.2450, L700.6800, L100.0100, L500.4050 #### [facility] [address] [place], [address] Eosinophils/100 WBC (Bld) 0.0 % Normal 0-5 [facility] Comment on above: Performed By: #### L 505.5000, L501.9100, L501.2450, L700.6800, L100.0100, L500.4050 #### [facility] [address] [place], [address] Erythrocyte distribution width (RBC) [Ratio] 13.2 % Normal 11.6-14.6 [facility] Comment on above: Performed By: #### L 505.5000, L501.9100, L501.2450, L700.6800, L100.0100, L500.4050 #### [facility] [address] [facility] [place], [address] Hematocrit (Bld) [Volume fraction] 40.4 % Normal 37-47 [facility] Comment on above: Performed By: #### L 505.5000, L501.9100, L501.2450, L700.6800, L100.0100, L500.4050 #### [facility] [address] [place], [address] Hemoglobin (Bld) [Mass/Vol] 13.5 g/dL Normal 12.0-15.0 [facility] Comment on above: Performed By: #### L 505.5000, L501.9100, L501.2450, L700.6800, L100.0100, L500.4050 #### [facility] [address] [place], [address] IG% 0.800 Normal 0.0-0.9 [facility] Comment on above: Result Comment: IG% - Immature Granulocytes (promyelocytes, myelocytes and metamyelocytes) > 1% indicates that a LEFT SHIFT is Present. Performed By: #### L 505.5000, L501.9100, L501.2450, L700.6800, L100.0100, L500.4050 #### [facility] [address] [facility] [place], [address] Lymphocytes/100 WBC (Bld) 13.9 % Low 19-41 [facility] Comment on above: Performed By: #### L 505.5000, L501.9100, L501.2450, L700.6800, L100.0100, L500.4050 #### [facility] [address] [place], [address] MCH (RBC) [Entitic mass] 28.7 pg Normal 27.0-32.0 [facility] Comment on above: Performed By: #### L 505.5000, L501.9100, L501.2450, L700.6800, L100.0100, L500.4050 #### [facility] [address] [place], [address] MCHC (RBC) [Mass/Vol] 33.4 g/dL Normal 32-36 [facility] Comment on above: Performed By: #### L 505.5000, L501.9100, L501.2450, L700.6800, L100.0100, L500.4050 #### [facility] [address] [place], [address] MCV (RBC) [Entitic vol] 85.8 fL Normal 81-99 [facility] Comment on above: Performed By: #### L 505.5000, L501.9100, L501.2450, L700.6800, L100.0100, L500.4050 #### [facility] [address] [place], [address] Monocytes/100 WBC (Bld) 2.3 % Normal 0-10 [facility] Comment on above: Performed By: #### L 505.5000, L501.9100, L501.2450, L700.6800, L100.0100, L500.4050 #### [facility] [address] [place], [address] Neutrophils/100 WBC (Bld) 82.8 % High 47-70 [facility] Comment on above: Performed By: #### L 505.5000, L501.9100, L501.2450, L700.6800, L100.0100, L500.4050 #### [facility] [address] [place], [address] Nucleated RBC (Bld) [#/Vol] 0 10*3/uL Normal 0-5 [facility] Comment on above: Performed By: #### L 505.5000, L501.9100, L501.2450, L700.6800, L100.0100, L500.4050 #### [facility] [address] [place], [address] Platelet mean volume (Bld) [Entitic vol] 11.3 fL Normal 6.2-12.0 [facility] Comment on above: Performed By: #### L 505.5000, L501.9100, L501.2450, L700.6800, L100.0100, L500.4050 #### [facility] [address] [place], [address] Platelets (Bld) [#/Vol] 324 10*3/uL Normal 150-450 [facility] Comment on above: Performed By: #### L 505.5000, L501.9100, L501.2450, L700.6800, L100.0100, L500.4050 #### [facility] [address] [place], [address] RBC (Bld) [#/Vol] 4.71 10*6/uL Normal 4.2-5.4 [facility] Comment on above: Performed By: #### L 505.5000, L501.9100, L501.2450, L700.6800, L100.0100, L500.4050 #### [facility] [address] [place], [address] RDW SD 41.2 fl Normal 35.1-43.9 [facility] Comment on above: Performed By: #### L 505.5000, L501.9100, L501.2450, L700.6800, L100.0100, L500.4050 #### [facility] [address] [place], [address] WBC (Bld) [#/Vol] 14.8 10*3/uL High 4.4-11.0 [facility] Comment on above: Performed By: #### L 505.5000, L501.9100, L501.2450, L700.6800, L100.0100, L500.4050 #### [facility] [address] [place], [address] Carbon dioxide, total [Moles /volume] in Central venous bloodOrdered By: Juan Tapia on 02-06-2025 CO2 [Moles/Vol] 25.0 mmol/L 21.0-32.0 [facility] Chloride assayOrdered By: Luisito Tapia on 02-06-2025 Chloride [Moles/Vol] 105 mmol/L 98-108 [facility] Comprehensive Metabolic Prof ilon 02-06-2025 Albumin [Mass/Vol] 4.7 g/dL Normal 3.5-5.0 [facility] Comment on above: Performed By: #### L 505.5000, L501.9100, L501.2450, L700.6800, L100.0100, L500.4050 #### [facility] [address] [place], [address] Albumin/Globulin [Mass ratio] 1.5 {ratio} Normal 0.9-2.4 [facility] Comment on above: Performed By: #### L 505.5000, L501.9100, L501.2450, L700.6800, L100.0100, L500.4050 #### [facility] [address] [place], [address] ALK PHOS 65 U/L Normal 35-104 [facility] Comment on above: Performed By: #### L 505.5000, L501.9100, L501.2450, L700.6800, L100.0100, L500.4050 #### [facility] [address] [place], [address] ALT [Catalytic activity/Vol] 23 U/L Normal <=34 [facility] Comment on above: Performed By: #### L 505.5000, L501.9100, L501.2450, L700.6800, L100.0100, L500.4050 #### [facility] [address] [place], [address] AST [Catalytic activity/Vol] 27 U/L Normal <=31 [facility] Comment on above: Performed By: #### L 505.5000, L501.9100, L501.2450, L700.6800, L100.0100, L500.4050 #### [facility] [address] [place], [address] Bilirubin [Mass/Vol] 0.41 mg/dL Normal 0.00-1.30 [facility] Comment on above: Performed By: #### L 505.5000, L501.9100, L501.2450, L700.6800, L100.0100, L500.4050 #### [facility] [address] [place], [address] BUN/CRE 9.7 RATIO Low 10-20 [facility] Comment on above: Performed By: #### L 505.5000, L501.9100, L501.2450, L700.6800, L100.0100, L500.4050 #### [facility] [address] [place], [address] Calcium [Mass/Vol] 11.2 mg/dL High 7.6-11.0 [facility] Comment on above: Performed By: #### L 505.5000, L501.9100, L501.2450, L700.6800, L100.0100, L500.4050 #### [facility] [address] [place], [address] Chloride [Moles/Vol] 105 mmol/L Normal 98-108 [facility] Comment on above: Performed By: #### L 505.5000, L501.9100, L501.2450, L700.6800, L100.0100, L500.4050 #### [facility] [address] [place], [address] CO2 [Moles/Vol] 25.0 mmol/L Normal 21.0-32.0 [facility] Comment on above: Performed By: #### L 505.5000, L501.9100, L501.2450, L700.6800, L100.0100, L500.4050 #### [facility] [address] [place], [address] Creatinine [Mass/Vol] 0.82 mg/dL Normal 0.70-1.20 [facility] Comment on above: Performed By: #### L 505.5000, L501.9100, L501.2450, L700.6800, L100.0100, L500.4050 #### [facility] [address] [place], [address] ECRCL 106.76 ml/min Normal 50-250 [facility] Comment on above: Performed By: #### L 505.5000, L501.9100, L501.2450, L700.6800, L100.0100, L500.4050 #### [facility] [address] [place], [address] GAP 11 Normal 5-15 [facility] Comment on above: Performed By: #### L 505.5000, L501.9100, L501.2450, L700.6800, L100.0100, L500.4050 #### [facility] [address] [place], [address] GFR/1.73 sq M.predicted among non-blacks MDRD (S/P/Bld) [Vol rate/Area] 97 mL/min/{1.73_m2} Normal >60 [facility] Comment on above: Result Comment: mL/m in/1.73m2 CKD-EPI Creatinine Equation (2020) Performed By: #### L 505.5000, L501.9100, L501.2450, L700.6800, L100.0100, L500.4050 #### [facility] [address] [place], [address] Globulin (S) [Mass/Vol] 3.2 g/dL Normal 2.2-4.2 [facility] Comment on above: Performed By: #### L 505.5000, L501.9100, L501.2450, L700.6800, L100.0100, L500.4050 #### [facility] [address] [place], [address] Glucose [Mass/Vol] 177 mg/dL High 70-99 [facility] Comment on above: Performed By: #### L 505.5000, L501.9100, L501.2450, L700.6800, L100.0100, L500.4050 #### [facility] [address] [place], [address] Potassium [Moles/Vol] 4.7 mmol/L Normal 3.3-5.1 [facility] Comment on above: Performed By: #### L 505.5000, L501.9100, L501.2450, L700.6800, L100.0100, L500.4050 #### [facility] [address] [place], [address] Sodium [Moles/Vol] 141 mmol/L Normal 133-145 [facility] Comment on above: Performed By: #### L 505.5000, L501.9100, L501.2450, L700.6800, L100.0100, L500.4050 #### [facility] [address] [place], [address] T PROT 7.9 g/dL Normal 5.9-8.4 [facility] Comment on above: Performed By: #### L 505.5000, L501.9100, L501.2450, L700.6800, L100.0100, L500.4050 #### [facility] [address] [place], [address] Urea nitrogen [Mass/Vol] 8 mg/dL Normal 4-19 [facility] Comment on above: Performed By: #### L 505.5000, L501.9100, L501.2450, L700.6800, L100.0100, L500.4050 #### [facility] [address] [place], [address] Emergency Department Summary on 02-06-2025 Emergency Department Summary [facility] Medical Records Department [address] [place] [address] Emergency Department Summary 02/06/25 MR#: [id number] Acct: [id number] Name: JOSHUA CHOUDHARY Rep #: [id number] : 1995 30 From: Juan Tapia MD [...] states she wants her panic to stop. [facility] Medical History Anxiety disorder Cannabis use [...] 0 current occupational status: employed current occupation: [employer] Smoking Status: Never smoker Smokeless [...] (more content not included)... Normal [facility] Eosinophil percentageOrdered By: Juan Tapia on 02-06-2025 Eosinophils/100 WBC (Bld) 0.0 % 0-5 [facility] Erythrocyte distribution wid th ratioOrdered By: Juan Tapia on 02-06-2025 Erythrocyte distribution width (RBC) [Ratio] 13.2 % 11.6-14.6 [facility] Erythrocyte distribution wid th standard deviationOrdered By: Juan Tapia on 02-06-2025 Erythrocyte distribution width (RBC) [Ratio] 41.2 fl 35.1-43.9 [facility] Glomerular filtration rate ( GFR) estimation/1.73 sq m using serum, plasma, or whole bOrdered By: Juan Tapia on 02-06-2025 GFR/1.73 sq M.predicted among non-blacks MDRD (S/P/Bld) [Vol rate/Area] 97 mL/min/{1.73_m2} >60 [facility] Comment on above: mL/min/1.73m2 CKD-EP I Creatinine Equation (2020) Hematocrit Auto (Bld) [Volum e fraction]Ordered By: Juan Tapia on 02-06-2025 Hematocrit (Bld) [Volume fraction] 40.4 % 37-47 [facility] Hemoglobin measurementOrdere d By: Juan Tapia on 02-06-2025 Hemoglobin (Bld) [Mass/Vol] 13.5 g/dL 12.0-15.0 [facility] Immature granulocytes/100 WB C Auto (Bld)Ordered By: Juan Tapia on 02-06-2025 Immature granulocytes/100 WBC (Bld) 0.800 % 0.0-0.9 [facility] Comment on above: IG% - Immature Granu locytes (promyelocytes, myelocytes and metamyelocytes) > 1% indicates that a LEFT SHIFT is Present. Laboratory - Chemistry and C hemistry - challengeOrdered By: Juan Tapia on 02-06-2025 AST [Catalytic activity/Vol] 27 U/L <32 [facility] Lipaseon 02-06-2025 Lipase [Catalytic activity/Vol] 20 U/L Normal 13-75 [facility] Comment on above: Result Comment: Jose porter note: LIPASE revised reference range effective 23. New Lipase methodology. Expected to produce lower values than the previous assay method. NEW Reference Range: 13 - 75 U/L Performed By: #### L 505.5000, L501.9100, L501.2450, L700.6800, L100.0100, L500.4050 #### [facility] [address] [facility] [place], [address] Lipase measurementOrdered By : Juan Tapia on 02-06-2025 Lipase [Catalytic activity/Vol] 20 U/L 13-75 [facility] Comment on above: Please note:LIPASE r evised reference range effective 23. New Lipase methodology. Expected to produce lower values than the previous assay method. NEW Reference Range: 13 - 75 U/L MCV (mean corpuscular volume ) determinationOrdered By: Juan Tapia on 02-06-2025 MCV (RBC) [Entitic vol] 85.8 fL 81-99 [facility] Mean corpuscular hemoglobin (MCH) determinationOrdered By: Juan Tapia on 02-06-2025 MCH (RBC) [Entitic mass] 28.7 pg 27.0-32.0 [facility] Mean corpuscular hemoglobin concentration (MCHC) determinationOrdered By: Juan Tapia on 02-06-2025 MCHC (RBC) [Mass/Vol] 33.4 g/dL 32-36 [facility] Mean platelet volume determi nationOrdered By: Juan Tapia on 02-06-2025 Platelet mean volume (Bld) [Entitic vol] 11.3 fL 6.2-12.0 [facility] Monocyte percentageOrdered B y: Juan Tapia on 02-06-2025 Monocytes/100 WBC (Bld) 2.3 % 0-10 [facility] Neutrophil percentageOrdered By: Juan Tapia on 02-06-2025 Neutrophils/100 WBC (Bld) 82.8 % High 47-70 [facility] No Panel InformationOrdered By: Juan Tapia on 02-06-2025 Urine Buprenorphine Qualitative Negative < 200 ng/mL [facility] Urine Oxycodone Screen Negative < 100 ng/mL [facility] Nucleated red blood cell per centageOrdered By: Juan Tapia on 02-06-2025 Nucleated RBC/100 WBC (Bld) [Ratio] 0 % 0-5 [facility] Platelet countOrdered By: Luisito Tapia on 02-06-2025 Platelets (Bld) [#/Vol] 324 10*3/uL 150-450 [facility] Potassium measurement (mass/ volume)Ordered By: Juan Tapia on 02-06-2025 Potassium (Unsp spec) [Mass/Vol] 4.7 mmol/L 3.3-5.1 [facility] ,Serum,hCG Quali.on 02-06-2025 HCG, SERUM QUAL Negative Normal [facility] Comment on above: Performed By: #### L 505.5000, L501.9100, L501.2450, L700.6800, L100.0100, L500.4050 #### [facility] [place], [address] Quantitative urine opiates m easurementOrdered By: Juan Tapia on 02-06-2025 Opiates Ql (U) Negative < 300 ng/mL [facility] RBC Auto (Bld) [#/Vol]Ordere d By: Juan Tapia on 02-06-2025 RBC (Bld) [#/Vol] 4.71 10*6/uL 4.2-5.4 [facility] Screening urine fentanyl cally surementOrdered By: Juan Tapia on 02-06-2025 fentaNYL Screen Ql (U) Negative [facility] Serum beta-hCG test, qualita tiveOrdered By: Juan Tapia on 02-06-2025 Beta HCG ( test) Ql Negative [facility] Serum creatinine measurement (mass/volume)Ordered By: Juan Tapia on 02-06-2025 Creatinine [Mass/Vol] 0.82 mg/dL 0.70-1.20 [facility] Serum globulin measurementOr dered By: Juan Tapia on 02-06-2025 Globulin (S) [Mass/Vol] 3.2 g/dL 2.2-4.2 [facility] Serum glucose measurement (m ass/volume)Ordered By: Juan Tapia on 02-06-2025 Glucose [Mass/Vol] 177 mg/dL High 70-99 [facility] Serum or plasma alanine peterson otransferase (ALT) measurementOrdered By: Juan Tapia on 02-06-2025 ALT [Catalytic activity/Vol] 23 U/L <35 [facility] Serum or plasma albumin prakash urement (mass/volume)Ordered By: Juan Tapia on 02-06-2025 Albumin [Mass/Vol] 4.7 g/dL 3.5-5.0 [facility] Serum or plasma albumin/glob ulin mass ratioOrdered By: Juan Tapia on 02-06-2025 Albumin/Globulin [Mass ratio] 1.5 {ratio} 0.9-2.4 [facility] Serum or plasma alkaline frandy sphatase measurementOrdered By: Juan Tapia on 02-06-2025 ALP [Catalytic activity/Vol] 65 U/L 35-104 [facility] Serum or plasma calcium prakash urement (mass/volume)Ordered By: Juan Tapia on 02-06-2025 Calcium [Mass/Vol] 11.2 mg/dL High 7.6-11.0 [facility] Serum or plasma ethanol prakash urement (mass/volume)Ordered By: Juan Tapia on 02-06-2025 Ethanol [Mass/Vol] mg/dL <10.1 [facility] Comment on above: Hemolysis Present, R esults may be affected.This test is for medical purposes only. The legal definition of intoxication varies according to local law. Serum or plasma urea nitroge n measurement (mass/volume)Ordered By: Juan Tapia on 02-06-2025 Urea nitrogen [Mass/Vol] 8 mg/dL 4-19 [facility] Sodium levelOrdered By: Juan Tapia on 02-06-2025 Sodium [Moles/Vol] 141 mmol/L 133-145 [facility] Total proteinOrdered By: Tessy Tapia on 02-06-2025 Protein [Mass/Vol] 7.9 g/dL 5.9-8.4 [facility] Urine Drug Screen (VISTA)on 02-06-2025 AMPHETAMINES Negative Normal <1000 ng/mL [facility] Comment on above: Performed By: #### L 505.5000, L501.9100, L501.2450, L700.6800, L100.0100, L500.4050 #### [facility] [address] [place], [place], [id number] BARBITIURATES Negative Normal < 200 ng/mL [facility] Comment on above: Performed By: #### L 505.5000, L501.9100, L501.2450, L700.6800, L100.0100, L500.4050 #### [facility] [address] [place], [address] (282) BENZODIAZIPINE Negative Normal < 200 ng/mL [facility] Comment on above: Performed By: #### L 505.5000, L501.9100, L501.2450, L700.6800, L100.0100, L500.4050 #### [facility] [address] [place], [facility] BUP Ur Drug Scr Negative Normal < 200 ng/mL [facility] Comment on above: Performed By: #### L 505.5000, L501.9100, L501.2450, L700.6800, L100.0100, L500.4050 #### [facility] [address] [place], [facility] COCAINE Negative Normal < 300 ng/mL [facility] Comment on above: Performed By: #### L 505.5000, L501.9100, L501.2450, L700.6800, L100.0100, L500.4050 #### [facility] [address] [place], [facility] Fentanyl Negative Normal [facility] Comment on above: Performed By: #### L 505.5000, L501.9100, L501.2450, L700.6800, L100.0100, L500.4050 #### [facility] [address] [place], [facility] METHADONE Negative Normal < 300 ng/mL [facility] Comment on above: Performed By: #### L 505.5000, L501.9100, L501.2450, L700.6800, L100.0100, L500.4050 #### [facility] [address] [place], [facility] OPIATES Negative Normal < 300 ng/mL [facility] Comment on above: Performed By: #### L 505.5000, L501.9100, L501.2450, L700.6800, L100.0100, L500.4050 #### [facility] [address] [place] [address] OXYCODONE Negative Normal < 100 ng/mL [facility] Comment on above: Performed By: #### L 505.5000, L501.9100, L501.2450, L700.6800, L100.0100, L500.4050 #### [facility] [address] [place], [place], [id number] PCP Negative Normal < 25 ng/mL [facility] Comment on above: Performed By: #### L 505.5000, L501.9100, L501.2450, L700.6800, L100.0100, L500.4050 #### [facility] [address] [place], [place], [id number] THC Positive Normal < 50 ng/mL [facility] Comment on above: Result Comment: If c onfirmation testing is needed, a separate order will be required to send out testing to the reference laboratory. Performed By: #### L 505.5000, L501.9100, L501.2450, L700.6800, L100.0100, L500.4050 #### [facility] [address] [place], [place], [id number] Urine benzodiazepine levelOr dered By: Juan Tapia on 02-06-2025 Benzodiazepines Ql (U) Negative < 200 ng/mL [facility] Urine cocaine levelOrdered B y: Juan Tapia on 02-06-2025 Cocaine Ql (U) Negative < 300 ng/mL [facility] Urine hpini-6-[id number] abinol (THC) measurementOrdered By: Juan Tapia on 02-06-2025 Cannabinoids Screen Ql (U) Positive < 50 ng/mL [facility] Comment on above: If confirmation test ing is needed, a separate order will be required to send out testing to the reference laboratory. Urine phencyclidine (PCP) de tectionOrdered By: Juan Tapia on 02-06-2025 Phencyclidine Ql (U) Negative < 25 ng/mL [facility] White blood cell (WBC) count Ordered By: Juan Tapia on 02-06-2025 WBC (Bld) [#/Vol] 14.8 10*3/uL High 4.4-11.0 [facility] ALBUMIN/CREATININE RATIO, UR INEon 11-09-2024 Albumin Unsp time DL <= 20 mg/L (U) [Mass/Time] 16.8 mg/L [facility] Albumin/Creatinine (U) [Mass ratio] 4 mg/g NINF - 30 mg/g [facility] Comment on above: Adult Male and Femal [...] 476.6 mg/dL High 42.2 - 237.9 mg/dL [facility] Interpretation and review of laboratory results Abnormal [facility] ALBUMIN/CREATININE RATIO, UR INEon 11-08-2024 Albumin Unsp time DL <= 20 mg/L (U) [Mass/Time] 16.8 mg/L Normal [facility] Comment on above: Order Comment: Speci men Type: URINE SPECIMEN Ordering Facility: [facility] Address: [address] [place] [address] Performed By: #### U ACR #### [facility] CLIA [id number] [address] [facility] Albumin/Creatinine (U) [Mass ratio] 4 mg/g Normal <30 [facility] Comment on above: Order Comment: Speci men Type: URINE SPECIMEN Ordering Facility: [facility] Address: [address] [place] [address] Result Comment: Adul t Male and Female [...] U ACR #### [facility] CLIA [id number] [address] [place] [address] [place] Creatinine (U) [Mass/Vol] 476.6 mg/dL High 42.2-237.9 [facility] Comment on above: Order Comment: Speci men Type: URINE SPECIMEN Ordering Facility: [facility] Address: [facility] [place] [address] Performed By: #### U ACR #### [facility] CLIA [id number] [address] [place] CNOVon 11-08-2024 CNOV Office Visit (AGFAMP LE) JOSHUA CHOUDHARY ([id number]) 1995 F Date Time Provider Department 11/08/24 1:40 PM LESA SOLER During your visit today, we recorded the following information about you: Temperature Pulse Blood pressure Weight 98.1 degrees 69/minute 112/70 88 kg Height 1.676 m Lesa Soler APRN.WATER ATTENDANT 11/27/2024 1:47 PM Signed Subjective Joshua Choudhary is a 29 year old female here today for diabetes follow-up. I reviewed past medical, surgical, social, and family histories today and updated chart. Allergies, chronic medications, and supplements were also reviewed. HPI Patient has type 2 diabetes, well controlled with diet She has changed her diet a lot Saw the patch washer Made a big difference Was able to develop hunger again and more frequently Still losing weight No more diarrhea Increased movement Going to college - [employer] Walking a lot more Doing EMDR therapy [...] HENT: Head: Normocephalic and atraumatic. Mouth/Throat: Lips: [place]. Eyes: General: Lids are normal. Extraocular Movements: [...] 107 mmo (more content not included)... Normal [facility] C[facility] JOSHUA CHOUDHARY ([id number]) 1995 F Date Time Provider Department 11/08/24 [...] by GLORIA EVANS on 11/08/24 [facility] CNOVon 11-03-2024 CNOV Office Visit (UCWSTR ) JOSHUA CHOUDHARY ([id number]) 1995 F Date Time Provider Department 11/03/24 11:00 AM KEELY REDDY [facility] During your visit today, we recorded the [...] history is provided by the patient. No english language arts teacher was used. URI She complains of cough. [...] murmur he (more content not included)... Normal [facility] COVID AND INFLUENZA A/B AND RSV PCR, ROUTINEon 11-03-2024 SARS-CoV-2 (COVID-19) RNA MURALI+probe Ql (Unsp spec) SARS-COV-2 (AGENT OF COVID-19) RNA: Not detected INFLUENZA A RNA: Detected INFLUENZA B RNA: Not detected RESPIRATORY SYNCYTIAL VIRUS (RSV) RNA: Not detected Abnormal [facility] Comment on above: Performed By: #### 5 8410-2 #### [facility] CLIA [id number] [address] [place] [address] [place] STREP A MOLECULAR (POC)on Procedural Control Valid [facility] Strep A (POCT) Negative Negative [facility] Basic Metabolic Profile (BMP )on 09-30-2024 BUN/CRE 8.9 RATIO Low 10-20 [facility] Comment on above: Performed By: #### L 505.5000, L501.9100, L501.2450, L700.6800, L100.0100, L500.4050 #### [facility] [address] [place], [address] CA,Total 11.1 mg/dL High 8.5-10.1 [facility] Comment on above: Performed By: #### L 505.5000, L501.9100, L501.2450, L700.6800, L100.0100, L500.4050 #### [facility] [address] [place], [address] Chloride [Moles/Vol] 109 mmol/L High 98-107 [facility] Comment on above: Performed By: #### L 505.5000, L501.9100, L501.2450, L700.6800, L100.0100, L500.4050 #### [facility] [address] [place], [address] CO2 [Moles/Vol] 22.0 mmol/L Normal 21.0-32.0 [facility] Comment on above: Performed By: #### L 505.5000, L501.9100, L501.2450, L700.6800, L100.0100, L500.4050 #### [facility] [address] [place], [address] Creatinine [Mass/Vol] 1.01 mg/dL Normal 0.55-1.02 [facility] Comment on above: Result Comment: The validity of the calculated GFR GFRAA in patients over 70 years has not been determined. Clinical correlation is essential. Performed By: #### L 505.5000, L501.9100, L501.2450, L700.6800, L100.0100, L500.4050 #### [facility] [address] [place], [address] ECRCL 91.22 ml/min Normal [facility] Comment on above: Performed By: #### L 505.5000, L501.9100, L501.2450, L700.6800, L100.0100, L500.4050 #### [facility] [address] [place], [address] EST GFR - AA 82 mL/min Normal >60 [facility] Comment on above: Result Comment: Afri can [place] GFR Calc Performed By: #### L 505.5000, L501.9100, L501.2450, L700.6800, L100.0100, L500.4050 #### [facility] [address] [place], [address] GAP 10 Normal 5-15 [facility] Comment on above: Performed By: #### L 505.5000, L501.9100, L501.2450, L700.6800, L100.0100, L500.4050 #### [facility] [address] [place], [address] GFR/1.73 sq M.predicted among non-blacks MDRD (S/P/Bld) [Vol rate/Area] 68 mL/min/{1.73_m2} Normal >60 [facility] Comment on above: Result Comment: Non- GFR Calc Performed By: #### L 505.5000, L501.9100, L501.2450, L700.6800, L100.0100, L500.4050 #### [facility] [address] [place], [address] Glucose [Mass/Vol] 167 mg/dL High 74-106 [facility] Comment on above: Result Comment: Fast ing Glucose result greater than or equal to 126 mg/dL suggests DIABETES MELLITUS per A.D.A. criteria. Performed By: #### L 505.5000, L501.9100, L501.2450, L700.6800, L100.0100, L500.4050 #### [facility] [address] [place], [address] Potassium [Moles/Vol] 3.7 mmol/L Normal 3.5-5.1 [facility] Comment on above: Result Comment: Slig ht Hemolysis, Result may be falsely increased. Performed By: #### L 505.5000, L501.9100, L501.2450, L700.6800, L100.0100, L500.4050 #### [facility] [address] [place], [address] Sodium [Moles/Vol] 140 mmol/L Normal 136-145 [facility] Comment on above: Performed By: #### L 505.5000, L501.9100, L501.2450, L700.6800, L100.0100, L500.4050 #### [facility] [address] [place], [address] Urea nitrogen [Mass/Vol] 9 mg/dL Normal 7-18 [facility] Comment on above: Performed By: #### L 505.5000, L501.9100, L501.2450, L700.6800, L100.0100, L500.4050 #### [facility] [address] [place], [address] Emergency Department Summary on 09-30-2024 Emergency Department Summary [facility] Medical Records Department [address] [place] [address] Emergency Department Summary 09/30/24 MR#: [id number] Acct: [id number] Name: JOSHUA CHOUDHARY Rep #: [id number] : 1995 29 From: Christos Esparza MD PCP: Lesa Soler TRANSPORTATION ESCORT-Katlyn Status:REG ER Location: ED HPI History of [...] Dr. Mendez. January 2024 for dehydration ) [facility] Medical History Anxiety disorder Cannabis use [...] 0 current occupational status: employed current occupation: [employer] Smoking Status: Never smoker Smokeless [...] (more content not included)... Normal [facility] hCG Titer Quant., Serumon HCG QUANT. < 1 Normal 1-3 [facility] Comment on above: Result Comment: hCG levels with Gestational Age Gestational Age hCG mIU/mL (IU/L) 0.2 - 1 week 5 - 50 1-2 weeks 50 - 500 2-3 weeks 100 - 5000 3-4 weeks 500 - 50319 4-5 weeks 1000 - 75305 5-6 weeks 56107 - 100,000 6-8 weeks 02431 - 200,000 2-3 months 75774 - 100,000 Performed By: #### L 505.5000, L501.9100, L501.2450, L700.6800, L100.0100, L500.4050 #### [facility] [address] [place], [address] [facility] 09-19-2024 [place] Telephone (GIULIANA) JOSHUA CHOUDHARY ([id number]) 1995 F Date Time Provider Department 09/19/24 [...] Patient may choose to take fish oil [id number]-umigzck. Recheck cholesterol in 6 months. Thank you Lesa Soler APRN.WATER ATTENDANT Allergies As of Date: 09/19/2024 (No Known Allergies) Date Reviewed: 09/11/2024 Reviewed by: Staci Givens RD - Fully Assessed Reason for Visit: Results [95] Cmt: labs Problem List As Of Date 09/19/2024 Noted Resolved Abdominal pain, epigastric [R10.13] 05/16/2017 Gallstones [K80.20] 08/28/2017 RUQ pain [R10.11] 09/28/2017 Type 2 diabetes mellitus without complication, *09/03/2024 Encounter Status:Closed by MADELYN DENT on 09/20/24 Normal [facility] CBC panel Auto (Bld)on 09-11 Erythrocyte distribution width (RBC) [Ratio] 13.8 % 11.5 - 15.0 % [facility] Hematocrit (Bld) [Volume fraction] 44.9 % 36.0 - 46.0 % [facility] Hemoglobin (Bld) [Mass/Vol] 14.8 g/dL 11.5 - 15.5 g/dL [facility] Interpretation and review of laboratory results Abnormal [facility] MCH (RBC) [Entitic mass] 29.4 pg 26.0 - 34.0 pg [facility] MCHC (RBC) [Mass/Vol] 33.0 g/dL 30.5 - 36.0 g/dL [facility] MCV (RBC) [Entitic vol] 89.1 fL 80.0 - 100.0 fL [facility] Nucleated RBC (Bld) [#/Vol] NINF [facility] Platelet mean volume (Bld) [Entitic vol] 11.8 fL 9.0 - 12.7 fL [facility] Platelets (Bld) [#/Vol] 243 10*3/uL [facility] RBC (Bld) [#/Vol] 5.04 10*6/uL 3.90 - 5.20 m/uL [facility] WBC (Bld) [#/Vol] 11.48 10*3/uL High [facility] Erythrocyte distribution width (RBC) [Ratio] 13.8 % Normal 11.5-15.0 [facility] Comment on above: Order Comment: Speci men Type: BLOOD SPECIMEN Ordering Facility: [facility] Address: [address] [place] [address] Performed By: #### 5 8410-2 #### [facility] CLIA [id number] [address] [place] [address] [place] Hematocrit (Bld) [Volume fraction] 44.9 % Normal 36.0-46.0 [facility] Comment on above: Order Comment: Speci men Type: BLOOD SPECIMEN Ordering Facility: [facility] Address: [address] [place] [address] Performed By: #### 5 8410-2 #### [facility] CLIA [id number] [address] [place] [address] [place] Hemoglobin (Bld) [Mass/Vol] 14.8 g/dL Normal 11.5-15.5 [facility] Comment on above: Order Comment: Speci men Type: BLOOD SPECIMEN Ordering Facility: [facility] Address: [address] [place] [address] Performed By: #### 5 8410-2 #### [facility] CLIA [id number] [address] [place] [address] [place] MCH (RBC) [Entitic mass] 29.4 pg Normal 26.0-34.0 [facility] Comment on above: Order Comment: Speci men Type: BLOOD SPECIMEN Ordering Facility: [facility] Address: [address] [place] [address] Performed By: #### 5 8410-2 #### [facility] CLIA [id number] [address] [place] [address] [place] MCHC (RBC) [Mass/Vol] 33.0 g/dL Normal 30.5-36.0 [facility] Comment on above: Order Comment: Speci men Type: BLOOD SPECIMEN Ordering Facility: [facility] Address: [address] [place] [address] Performed By: #### 5 8410-2 #### [facility] CLIA [id number] [address] [place] [address] [place] MCV (RBC) [Entitic vol] 89.1 fL Normal 80.0-100.0 [facility] Comment on above: Order Comment: Speci men Type: BLOOD SPECIMEN Ordering Facility: [facility] Address: [address] [place] [address] Performed By: #### 5 8410-2 #### [facility] CLIA [id number] [address] [place] [address] [place] Nucleated RBC (Bld) [#/Vol] 10*3/uL Normal <0.01 [facility] Comment on above: Order Comment: Speci men Type: BLOOD SPECIMEN Ordering Facility: [facility] Address: [address] [place] [address] Performed By: #### 5 8410-2 #### [facility] CLIA [id number] [address] [place] [address] [place] Platelet mean volume (Bld) [Entitic vol] 11.8 fL Normal 9.0-12.7 [facility] Comment on above: Order Comment: Speci men Type: BLOOD SPECIMEN Ordering Facility: [facility] Address: [address] [place] [address] Performed By: #### 5 8410-2 #### [facility] CLIA [id number] [address] [place] [address] [place] Platelets (Bld) [#/Vol] 243 10*3/uL Normal 150-400 [facility] Comment on above: Order Comment: Speci men Type: BLOOD SPECIMEN Ordering Facility: [facility] Address: [address] [place] [address] Performed By: #### 5 8410-2 #### [facility] CLIA [id number] [address] [place] [address] [place] RBC (Bld) [#/Vol] 5.04 10*6/uL Normal 3.90-5.20 [facility] Comment on above: Order Comment: Speci men Type: BLOOD SPECIMEN Ordering Facility: [facility] Address: [address] [place] [address] Performed By: #### 5 8410-2 #### [facility] CLIA [id number] [address] [place] [address] [place] WBC (Bld) [#/Vol] 11.48 10*3/uL High 3.70-11.00 [facility] Comment on above: Order Comment: Speci men Type: BLOOD SPECIMEN Ordering Facility: [facility] Address: [address] [place] [address] Performed By: #### 5 8410-2 #### [facility] CLIA [id number] [address] [place] [address] [place] Comprehensive metabolic 2000 panelon 09-11-2024 Albumin [Mass/Vol] 4.5 g/dL 3.9 - 4.9 g/dL [facility] ALP [Catalytic activity/Vol] 62 U/L 34 - 123 U/L [facility] ALT [Catalytic activity/Vol] 26 U/L 7 - 38 U/L [facility] Anion gap [Moles/Vol] 11 mmol/L 8 - 15 mmol/L [facility] AST [Catalytic activity/Vol] 24 U/L 13 - 35 U/L [facility] Bilirubin [Mass/Vol] 0.3 mg/dL 0.2 - 1 .3 mg/dL [facility] Calcium [Mass/Vol] 10.5 mg/dL High 8.5 - 10. 2 mg/dL [facility] Chloride [Moles/Vol] 105 mmol/L 98 - 10 7 mmol/L [facility] CO2 [Moles/Vol] 26 mmol/L 22 - 30 mmol/L [facility] Creatinine [Mass/Vol] 0.88 mg/dL 0.58 - 0.96 mg/dL [facility] GFR/1.73 sq M.predicted among non-blacks MDRD (S/P/Bld) [Vol rate/Area] 90 mL/min/{1.73_m2} - PINF [facility] Comment on above: Estimated Glomerular Filtration Rate [...] [Mass/Vol] 86 mg/dL 74 - 99 mg/dL [facility] Comment on above: The [place] Diabete s Association (ADA) provides guidance for [...] Standards of Medical Care in Diabetes 2016, [place] Diabetes Association. Diabetes Care. 2016.39(Suppl 1). Potassium [Moles/Vol] 4.2 mmol/L 3.7 - 5.1 mmol/L [facility] Protein [Mass/Vol] 7.2 g/dL 6.3 - 8.0 g/dL [facility] Sodium [Moles/Vol] 142 mmol/L 136 - 144 mmol/L [facility] Urea nitrogen [Mass/Vol] 5 mg/dL Low 7 - 21 mg/dL [facility] Albumin [Mass/Vol] 4.5 g/dL Normal 3.9-4.9 [facility] Comment on above: Order Comment: Speci men Type: BLOOD SPECIMEN Ordering Facility: [facility] Address: [address] [place] [address] Performed By: #### 3 016-3, 56110-5, 3040-3, 85895-0 #### [facility] CLIA [id number] [address] [place] [address] [place] ALP [Catalytic activity/Vol] 62 U/L Normal 34-123 [facility] Comment on above: Order Comment: Speci men Type: BLOOD SPECIMEN Ordering Facility: [facility] Address: [address] [place] [address] Performed By: #### 3 016-3, 18880-4, 3040-3, 64644-1 #### [facility] CLIA [id number] [address] [place] [address] [place] ALT [Catalytic activity/Vol] 26 U/L Normal 7-38 [facility] Comment on above: Order Comment: Speci men Type: BLOOD SPECIMEN Ordering Facility: [facility] Address: [address] [place] [address] Performed By: #### 3 016-3, 70076-7, 3040-3, 70332-7 #### [facility] CLIA [id number] [address] [place] [address] [place] Anion gap [Moles/Vol] 11 mmol/L Normal 8-15 [facility] Comment on above: Order Comment: Speci men Type: BLOOD SPECIMEN Ordering Facility: [facility] Address: [address] [place] [address] Performed By: #### 3 016-3, 56602-9, 3040-3, 55834-1 #### [facility] CLIA [id number] [address] [place] [address] [place] AST [Catalytic activity/Vol] 24 U/L Normal 13-35 [facility] Comment on above: Order Comment: Speci men Type: BLOOD SPECIMEN Ordering Facility: [facility] Address: [address] [place], [place] [address] Performed By: #### 3 016-3, 07313-8, 3040-3, 06256-9 #### [facility] CLIA [id number] [address] [place] [address] [place] Bilirubin [Mass/Vol] 0.3 mg/dL Normal 0.2-1.3 [facility] Comment on above: Order Comment: Speci men Type: BLOOD SPECIMEN Ordering Facility: [facility] Address: [address] [place] [address] Performed By: #### 3 016-3, 63291-6, 3040-3, 71479-7 #### [facility] CLIA [id number] [address] [place] [address] [place] Calcium [Mass/Vol] 10.5 mg/dL High 8.5-10.2 [facility] Comment on above: Order Comment: Speci men Type: BLOOD SPECIMEN Ordering Facility: [facility] Address: [address] [place] [address] Performed By: #### 3 016-3, 63772-0, 3040-3, 83080-9 #### [facility] CLIA [id number] [address] [place] [address] [place] Chloride [Moles/Vol] 105 mmol/L Normal 98-107 [facility] Comment on above: Order Comment: Speci men Type: BLOOD SPECIMEN Ordering Facility: [facility] Address: [address] [place] [address] Performed By: #### 3 016-3, 98138-3, 3040-3, 73176-7 #### [facility] CLIA [id number] [address] [place] [address] [place] CO2 [Moles/Vol] 26 mmol/L Normal 22-30 [facility] Comment on above: Order Comment: Speci men Type: BLOOD SPECIMEN Ordering Facility: [facility] Address: [address] [place] [address] Performed By: #### 3 016-3, 60041-2, 3040-3, 37795-7 #### [facility] CLIA [id number] [address] [place] [address] [place] Creatinine [Mass/Vol] 0.88 mg/dL Normal 0.58-0.96 [facility] Comment on above: Order Comment: Speci men Type: BLOOD SPECIMEN Ordering Facility: [facility] Address: [address] [place] [address] Performed By: #### 3 016-3, 28558-0, 3040-3, 93927-4 #### [facility] CLIA [id number] [address] [place] [address] [place] Creatinine and Glomerular filtration rate.predicted panel (S/P/Bld) 90 mL/min/1.73m??? Normal >=60 [facility] Comment on above: Order Comment: Yelena collins Type: BLOOD SPECIMEN Ordering Facility: [facility] Address: [address] [place] [address] Result Comment: Ely mated Glomerular Filtration Rate [...] actual GFR. Performed By: #### 3 016-3, 96287-8, 0-3, 18115-8 #### [facility] CLIA [id number] [address] [place] [address] [place] Glucose [Mass/Vol] 86 mg/dL Normal 74-99 [facility] Comment on above: Order Comment: Jarethi men Type: BLOOD SPECIMEN Ordering Facility: [facility] Address: [address] [place] [address] Result Comment: The [place] Diabetes Association (ADA) provides guidance for cutoff [...] Standards of Medical Care in Diabetes 2016, [place] Diabetes Association. Diabetes Care. 2016.39(Suppl 1). Performed By: #### 3 016-3, 26521-6, 3040-3, 02533-0 #### [facility] CLIA [id number] [address] [place] [address] [place] Potassium [Moles/Vol] 4.2 mmol/L Normal 3.7-5.1 [facility] Comment on above: Order Comment: Speci men Type: BLOOD SPECIMEN Ordering Facility: [facility] Address: [address] [place] [address] Performed By: #### 3 016-3, 85533-9, 3, #### [facility] CLIA [id number] [address] [place] [address] [place] Protein [Mass/Vol] 7.2 g/dL Normal 6.3-8.0 [facility] Comment on above: Order Comment: Speci men Type: BLOOD SPECIMEN Ordering Facility: [facility] Address: [address] [place] [address] Performed By: #### 3 016-3, 37888-5, 3040-3, 53270-2 #### [facility] CLIA [id number] [address] [place] [address] [place] Sodium [Moles/Vol] 142 mmol/L Normal 136-144 [facility] Comment on above: Order Comment: Speci men Type: BLOOD SPECIMEN Ordering Facility: [facility] Address: [address] [place] [address] Performed By: #### 3 016-3, 37995-4, 3040-3, 36099-0 #### [facility] CLIA [id number] [address] [place] [address] [place] Urea nitrogen [Mass/Vol] 5 mg/dL Low 7-21 [facility] Comment on above: Order Comment: Yelena collins Type: BLOOD SPECIMEN Ordering Facility: [facility] Address: [address] [place] [address] Performed By: #### 3 016-3, 99322-8, 3040-3, 58885-6 #### [facility] CLIA [id number] [address] [place] [address] [place] HbA1c (Bld)on 09-11-2024 Average glucose Estimated from glycated hemoglobin (Bld) [Mass/Vol] 111 mg/dL [facility] Comment on above: eAG: (Estimated aver age glucose) is a calculated value from HgbA1c and is medical collections representative of the average blood glucose level in the last 2-3 month period. HbA1c (Bld) [Mass fraction] 5.5 % 4.3 - 5.6 % [facility] Comment on above: [place] Diabetes As sociation guidelines indicate that patients with HgbA1c in the range 5.7-6.4% are at increased risk for development of diabetes, and intervention by lifestyle modification may be beneficial. HgbA1c greater or equal to 6.5% is considered diagnostic of diabetes. [facility] Average glucose Estimated from glycated hemoglobin (Bld) [Mass/Vol] 111 mg/dL Normal [facility] Comment on above: Order Comment: Yelena collins Type: BLOOD SPECIMEN Ordering Facility: [facility] Address: [address] [place] [address] Result Comment: eAG: (Estimated average glucose) is a calculated value from HgbA1c and is medical collections representative of the average blood glucose level in the last 2-3 month period. Performed By: #### 5 5454-3 #### [facility] CLIA [id number] [address] [place] [address] [place] HbA1c (Bld) [Mass fraction] 5.5 % Normal 4.3-5.6 [facility] Comment on above: Order Comment: Yelena collins Type: BLOOD SPECIMEN Ordering Facility: [facility] Address: [address] [place] [address] Result Comment: [place] Diabetes Association guidelines indicate that patients with HgbA1c in the range 5.7-6.4% are at increased risk for development of diabetes, and intervention by lifestyle modification may be beneficial. HgbA1c greater or equal to 6.5% is considered diagnostic of diabetes. Performed By: #### 5 5454-3 #### [facility] CLIA [id number] [address] [place] [address] [place] LIPASEon 09-11-2024 Lipase [Catalytic activity/Vol] 33 U/L 16 - 61 U/L [facility] Lipase SerPl-cCncon 09-11-20 24 Lipase [Catalytic activity/Vol] 33 U/L Normal 16- [facility] Comment on above: Order Comment: Yelena dennis Type: BLOOD SPECIMEN Ordering Facility: [facility] Address: [address] [place] [address] Performed By: #### 3 016-3, 51961-2, 3040-3, 76709-0 #### [facility] CLIA [id number] [address] [place] [address] [place] Lipase [Catalytic activity/V ol]on 09-11-2024 Interpretation and review of laboratory results Normal [facility] Lipid 1996 panelon 4 Cholesterol [Mass/Vol] 208 mg/dL High NINF - 200 mg/dL [facility] Comment on above: <200 mg/dL, Desirabl e 200-239 mg/dL, Borderline high >239 mg/dL, High Cholesterol in HDL [Mass/Vol] 27 mg/dL Low 39 - PINF mg/dL [facility] Comment on above: 40-59 mg/dL, Accepta ble >59 mg/dL, High: Negative risk factor for coronary heart disease <40 mg/dL, Low: Positive risk factor for coronary heart disease Cholesterol in LDL [Mass/Vol] 120 mg/dL High NINF - 100 mg/dL [facility] Comment on above: <100 mg/dL, Optimal 100-129 mg/dL, Near optimal/above optimal 130-159 mg/dL, Borderline high 160-189 mg/dL, High >189 mg/dL, Very high Secondary prevention optimal LDL Cholesterol levels are recommended to be < 70 mg/dL Cholesterol in LDL/Cholesterol in HDL [Mass ratio] 4.44 {ratio} High NINF - 2.54 [facility] Comment on above: Reference: 1. National Cholesterol Education Program ATP III Guideline At-A-Glance Quick Desk Reference: National Heart, Lung, and Blood [place]. National Institutes of Health. 2001: NIH Publication No. 01-3305. 2. An International Atherosclerosis Society position paper: global recommendations for the management of dyslipidemia: executive summary, Atherosclerosis. 2014: 232(2):410-413. Cholesterol in VLDL [Mass/Vol] 61 mg/dL High NINF - 30 mg/dL [facility] Cholesterol non HDL [Mass/Vol] 181 mg/dL High NINF - 130 mg/dL [facility] Comment on above: <130 mg/dL, Optimal 130-159 mg/dL, Near optimal/above optimal 160-189 mg/dL, Borderline high 190-219 mg/dL, High >219 mg/dL, Very high Secondary prevention optimal non HDL Cholesterol levels are recommended to be <100 mg/dL Cholesterol.total/Cho lesterol in HDL [Mass ratio] 7.70 {ratio} High NINF - 5.10 [facility] Fasting Time 12 hrs [facility] Triglyceride [Mass/Vol] 307 mg/dL High NINF - 150 mg/dL [facility] Comment on above: <150 mg/dL, Normal 150-199 mg/dL, Borderline high 200-499 mg/dL, High >499 mg/dL, Very high Cholesterol [Mass/Vol] 208 mg/dL High <200 [facility] Comment on above: Order Comment: Speci men Type: BLOOD SPECIMEN Ordering Facility: [facility] Address: [address] [place] [address] Result Comment: <200 mg/dL, Desirable 200-239 mg/dL, Borderline high >239 mg/dL, High Performed By: #### 3 016-3, 54781-4, 3040-3, 55060-9 #### [facility] CLIA [id number] [address] [place] Cholesterol in HDL [Mass/Vol] 27 mg/dL Low >39 [facility] Comment on above: Order Comment: Yelena collins Type: BLOOD SPECIMEN Ordering Facility: [facility] Address: [address] [place] [address] Result Comment: 40-5 9 mg/dL, Acceptable >59 mg/dL, High: Negative risk factor for coronary heart disease <40 mg/dL, Low: Positive risk factor for coronary heart disease Performed By: #### 3 016-3, 91882-0, 3040-3, 55563-0 #### [facility] CLIA [id number] [address] [place] [address] [place] Cholesterol in LDL [Mass/Vol] 120 mg/dL High <100 [facility] Comment on above: Order Comment: Yelena collins Type: BLOOD SPECIMEN Ordering Facility: [facility] Address: [address] [place] [address] Result Comment: <100 mg/dL, Optimal 100-129 mg/dL, Near optimal/above optimal 130-159 mg/dL, Borderline high 160-189 mg/dL, High >189 mg/dL, Very high Secondary prevention optimal LDL Cholesterol levels are recommended to be < 70 mg/dL Performed By: #### 3 016-3, 57895-1, 3040-3, 74660-7 #### [facility] CLIA [id number] [address] [place] [address] [place] Cholesterol in LDL/Cholesterol in HDL [Mass ratio] 4.44 {ratio} High <2.54 [facility] Comment on above: Order Comment: Yelena dennis Type: BLOOD SPECIMEN Ordering Facility: [facility] Address: [address] [place] [address] Result Comment: Chanel paulino: 1. National Cholesterol Education Program ATP III Guideline At-A-Glance Quick Desk Reference: National Heart, Lung, and Blood [place]. National Institutes of Health. 2001: NIH Publication No. 01-3305. 2. An International Atherosclerosis Society position paper: global recommendations for the management of dyslipidemia: executive summary, Atherosclerosis. 2014: 232(2):410-413. Performed By: #### 3 016-3, 89624-4, 3040-3, 29712-8 #### [facility] CLIA [id number] [address] [place] [address] [place] Cholesterol in VLDL [Mass/Vol] 61 mg/dL High <30 [facility] Comment on above: Order Comment: Speci men Type: BLOOD SPECIMEN Ordering Facility: [facility] Address: [address] [place] [address] Performed By: #### 3 016-3, 07290-3, 3040-3, 22616-3 #### [facility] CLIA [id number] [address] [place] [address] [place] Cholesterol non HDL [Mass/Vol] 181 mg/dL High <130 [facility] Comment on above: Order Comment: Speci men Type: BLOOD SPECIMEN Ordering Facility: [facility] Address: [address] [place] [address] Result Comment: <130 mg/dL, Optimal 130-159 mg/dL, Near optimal/above optimal 160-189 mg/dL, Borderline high 190-219 mg/dL, High >219 mg/dL, Very high Secondary prevention optimal non HDL Cholesterol levels are recommended to be <100 mg/dL Performed By: #### 3 016-3, 79055-0, 3040-3, 87127-5 #### [facility] CLIA [id number] [address] [place] [address] [place] Cholesterol.total/Cho lesterol in HDL [Mass ratio] 7.70 {ratio} High <5.10 [facility] Comment on above: Order Comment: Jarethi men Type: BLOOD SPECIMEN Ordering Facility: [facility] Address: [address] [place] [address] Performed By: #### 3 016-3, 63105-3, 3040-3, 08941-9 #### [facility] CLIA [id number] [id number] [place] FASTING TIME 12 hrs Normal [facility] Comment on above: Order Comment: Speci men Type: BLOOD SPECIMEN Ordering Facility: [facility] Address: [address] [place] [address] Performed By: #### 3 016-3, 59402-4, 3040-3, 94011-4 #### [facility] CLIA [id number] [address] [place] [address] [place] Triglyceride [Mass/Vol] 307 mg/dL High <150 [facility] Comment on above: Order Comment: Speci men Type: BLOOD SPECIMEN Ordering Facility: [facility] Address: [address] [place] [address] Result Comment: <150 mg/dL, Normal 150-199 mg/dL, Borderline high 200-499 mg/dL, High >499 mg/dL, Very high Performed By: #### 3 016-3, 32731-1, 3040-3, 60866-4 #### [facility] CLIA [id number] [address] [place] [address] [place] No Panel Informationon 09-11 Interpretation and review of laboratory results Abnormal [facility] THYROID STIMULATING HORMONEo n 09-11-2024 TSH Qn 0.917 m[IU]/L [facility] Comment on above: If the patient is [...] Molina, et al. 2017 Guidelines of the [place] Thyroid Association for the Diagnosis and Management of Thyroid Disease during and the . Thyroid, 2017:27:3:315-389. TSH Qnon 09-11-2024 Interpretation and review of laboratory results Normal [facility] TSH SerPl-aCncon 09-11-2024 TSH Qn 0.917 m[IU]/L Normal 0.270-4.20 0 [facility] Comment on above: Order Comment: Speci men Type: BLOOD SPECIMEN Ordering Facility: [facility] Address: [address] [place] [address] Result Comment: If t he patient is [...] Molina et al. 2017 Guidelines of the [place] Thyroid Association for the Diagnosis and Management of Thyroid Disease during and the . Thyroid, 2017:27:3:315-389. Performed By: #### 3 016-3, 40772-5, 3040-3, 77500-0 #### [facility] CLIA [id number] [address] [place] [address] [place] CNOVon 09-03-2024 CNOV Office Visit (TJ LOYOLA) MAHENDRAJOSHUA ALBERT ([id number]) 1995 F Date Time Provider Department 09/03/24 1:20 PM LESA SOLER During your visit today, we recorded the following information about you: Temperature Pulse Blood pressure Weight 98.1 degrees 78/minute 108/62 92.1 kg Height 1.676 m Lsea Soler, DIRECTOR OF EMERGENCY NURSING.WATER ATTENDANT 09/22/2024 12:58 AM Signed Subjective Joshua Choudhary is a 29 year old female here today for establish care. I reviewed past medical, surgical, social, and family histories today and updated chart. Allergies, chronic medications, and supplements were also reviewed. HPI Moved back to [place] about 1 year ago Needs PCP Diagnosed [...] Insatiable hunger for sugar, craves candy Saw RECORDS MANAGER last week - Dr Monique Pap test completed Looking in to fertility treatment for 6 years - tried for good 2 years, still not using BC Right fallopian tube removed age 17 Depression - she is seeing counselor and psychiatrist, Dr Marybel Ortiz 419 Counselor Joshua Zazueta at [facility], will be starting EDMR Hx childhood trauma CPSD responses Having official testing for ADHD Panic disorder Has been focusing on mental health this whole past year Hasn't been able to work this past year She was hospitalized - [facility] x 1 week Just started new [...] Skin: Negative (more content not included)... Normal [facility] CNOVon 08-28-2024 CNOV Office Visit (OBGYST ) JOSHUA CHOUDHARY ([id number]) 1995 F Date Time Provider Department 08/28/24 [...] skin retraction. Allergies and current medication updated:Yes Senior Statistician present EXAM: BP 108/71 Pulse 72 Ht 5' 6 (1.68m) Wt 208 lb (94.3kg) LMP 06/28/2024 BMI 33.59 kg/(m2). GENERAL: In no apparent distress HEENT: Normocephalic, BREAST: soft, non-tender, symmetric, no dominant mass, normal nipple-areolar complex, no lymphadenopathy, and no nipple discharge CHEST: Normal inspiratory effort ABDOMEN: soft, non-tender, and no masses PELVIC: external genitalia normal, normal Bartholin's glands, urethra, Chambers's glands, no vulvar lesions, no cervical lesions, [...] discussed with the Patient or Patient's Authorized Medical Screener. As applicable, any other physician, advance practice provider, medical student, or other health professional student that will be observing or involved in the sensitive examination for educational or training purposes was discussed with the Patient or Authorized Medical Screener. The Patient or Authorized Medical Screener has agreed to proceed with the sensitive [...] [E28.2] Primary female infertility [N97.9] Order(s):PAP TEST [[id number]] Order #: [id number]. #:[id number] CONSULT TO INFERTILITY CLINIC [[id number]] Order #: [id number]: 1 FUTURE Prescriptions as of 08/28/2024 - [...] for Encounter Date Provider Department Center 08/28/2024 [id number] MONIQUE [facility] Sh[place]gy [place] (more content not included)... Normal [facility] HIGH RISK HUMAN PAPILLOMA WEN (HPV), PCR FOR DETECTION AND GENOTYPINGon 08-28-2024 HPV 16 Ag Ql (Unsp spec) Not detected Normal Not detected [facility] Comment on above: Order Comment: Speci men Type: BLOOD SPECIMEN Ordering Facility: [facility] Address: [address] [place] [address] Performed By: #### 5 8410-2 #### [facility] CLIA [id number] [address] [place] [address] [place] HPV 18 Ag Ql (Unsp spec) Not detected Normal Not detected [facility] Comment on above: Order Comment: Speci men Type: BLOOD SPECIMEN Ordering Facility: [facility] Address: [address] [place] [address] Performed By: #### 5 8410-2 #### [facility] CLIA [id number] [address] [place] [address] [place] HPV 31+33+35+39+45+51+52+ 56+58+59+66+68 DNA MURALI+probe Ql (Cvx) Not detected Normal Not detected [facility] Comment on above: Order Comment: Speci men Type: BLOOD SPECIMEN Ordering Facility: [facility] Address: [address] [place] [address] Result Comment: High Risk HPV Other Type includes HPV types 31, 33, 35, 39, 45, 51, 52, 56, 58, 59, 66 and 68. Performed By: #### 5 8410-2 #### [facility] CLIA [id number] [address] [place] [address] [place] PAP TESTon 08-28-2024 ADEQUACY Satisfactory for interpretation. Normal [facility] Comment on above: Order Comment: Speci men Type: FLUID SPECIMEN Ordering Facility: [facility] Address: [address] [place] [address] Performed By: #### L [id number] #### [facility] CLIA [id number] [address] [place] [address] [place] [facility] CLIA [id number] [address] [place] [address] [place] CASE REPORT Normal [facility] Comment on above: Order Comment: Speci men Type: FLUID SPECIMEN Ordering Facility: [facility] Address: [address] [place] [address] Result Comment: Gyne cologic Cytology Report Case: [id number] Authorizing Provider: Mario Monique MD Collected: 08/28/2024 10:22 AM Ordering Location: OB/Gynecology Received: 08/28/2024 12:10 PM First Screen: Keisha, [place], [place], ASCP Specimen: Pap Test, ThinPrep, Cervix Performed By: #### L [id number] #### [facility] CLIA [id number] [address] [place] [address] [place] [facility] CLIA [id number] [address] [place] [address] [place] CLINICAL HISTORY, CYTOLOGY, RECORDS MANAGER Routine Exam Normal [facility] Comment on above: Order Comment: Speci men Type: FLUID SPECIMEN Ordering Facility: [facility] Address: [address] [place] [address] Performed By: #### L [id number] #### [facility] CLIA [id number] [address] [place] [address] [place] [facility] CLIA [id number] [facility] [place] [address] [place] FINAL PERFORMING LAB Normal [facility] Comment on above: Order Comment: Speci men Type: FLUID SPECIMEN Ordering Facility: [facility] Address: [address] [place] [address] Result Comment: Tech nical component, bobbin coil winder screening performed at [facility], [address] [place] [address] CLIA# [id number] Diagnostic interpretation performed at [facility], [address] [place], [place] [address] CLIA# [id number] Manager Valuation: Wu Scott M.D. Performed By: #### L [id number] #### [facility] CLIA [id number] [address] [place] [address] [place] [facility] CLIA [id number] [address] [place] [address] [place] INTERPRETATION, CYTOLOGY, RECORDS MANAGER Normal [facility] Comment on above: Order Comment: Speci men Type: FLUID SPECIMEN Ordering Facility: [facility] Address: [address] [place] [address] Result Comment: Nega tive for intraepithelial lesion or malignancy. Performed By: #### L [id number] #### [facility] CLIA [id number] [address] [place] [address] [place] [facility] CLIA [id number] [address] [place] [address] [place] LMP 06/28/2024 Normal [facility] Comment on above: Order Comment: Speci men Type: FLUID SPECIMEN Ordering Facility: [facility] Address: [address] [place] [address] Performed By: #### L [id number] #### [facility] CLIA [id number] [address] [place] [address] LAB CLIA [id number] [address] [place] [address] [place] PAP DISCLAIMER COMMENT The Pap Smear is a screening test for cervical cancer. False negative results occur with all screening tests, emphasizing the need for rescreening at recommended intervals, and clinical correlation. Normal [facility] Comment on above: Order Comment: Speci men Type: FLUID SPECIMEN Ordering Facility: [facility] Address: [address] [place] [address] Performed By: #### L [id number] #### [facility] CLIA [id number] [address] [place] [address] LAB CLIA [id number] [address] [place] [address] [place] PAP GRADE AND CENTER MARKER COMMENT This specimen has be en analyzed by the ThinPrep Imaging System, an automated imaging and review system, which assists the laboratory in evaluating cells on ThinPrep Pap tests. Following automated imaging, selected zelaya from every slide are reviewed by a bobbin coil winder. Normal [facility] Comment on above: Order Comment: Speci men Type: FLUID SPECIMEN Ordering Facility: [facility] Address: [address] [place] [address] Performed By: #### L [id number] #### [facility] CLIA [id number] [address] [place] [address] LAB CLIA [id number] [address] [place] [address] [place] Abdomen/Pelvis W IV Cont ONL Yon 07-15-2024 Abdomen/Pelvis W IV Cont ONLY [facility] Imaging Services [address] [place] [address] Abdomen/Pelvis W IV Cont ONLY MR#: [id number] Acct: [id number] Name: JOSHUA CHOUDHARY Rep #: [id number] : 1995 F 29 From: Braden Golden MD PCP: Care Physician,No Primary Status: REG ER Study: Abdomen/Pelvis W IV Cont ONLY Date of Exam: Exam# [id number] Ordering Dr: Oliver Marley DO :[id number] STUDY: CT ABDOMEN AND PELVIS WITH CONTRAST [...] Oliver Marley DO; No Primary Care Physician Recreational Therapist: Signed Normal [facility] CBC W/Diff, Automatedon 07-02 Absolute Lymph 4.18 X10 3/uL Normal 0.83-4.51 [facility] Comment on above: Performed By: #### L 505.5000, L501.9100, L501.2450, L700.6800, L100.0100, L500.4050 #### [facility] [address] [place], [address] Absolute Neut 17.5 X10 3/uL High 2.0-7.7 [facility] Comment on above: Performed By: #### L 505.5000, L501.9100, L501.2450, L700.6800, L100.0100, L500.4050 #### [facility] [address] [place], [address] Basophils/100 WBC (Bld) 0.4 % Normal 0-1 [facility] Comment on above: Performed By: #### L 505.5000, L501.9100, L501.2450, L700.6800, L100.0100, L500.4050 #### [facility] [address] [place], [address] Eosinophils/100 WBC (Bld) 0.2 % Normal 0-5 [facility] Comment on above: Performed By: #### L 505.5000, L501.9100, L501.2450, L700.6800, L100.0100, L500.4050 #### [facility] [address] [place], [address] Erythrocyte distribution width (RBC) [Ratio] 13.2 % Normal 11.6-14.6 [facility] Comment on above: Performed By: #### L 505.5000, L501.9100, L501.2450, L700.6800, L100.0100, L500.4050 #### [facility] [address] [place], [address] Hematocrit (Bld) [Volume fraction] 44.1 % Normal 37-47 [facility] Comment on above: Performed By: #### L 505.5000, L501.9100, L501.2450, L700.6800, L100.0100, L500.4050 #### [facility] [address] [place], [address] Hemoglobin (Bld) [Mass/Vol] 15.4 g/dL High 12.0-15.0 [facility] Comment on above: Performed By: #### L 505.5000, L501.9100, L501.2450, L700.6800, L100.0100, L500.4050 #### [facility] [address] [place], [address] IG% 0.700 Normal 0.0-0.9 [facility] Comment on above: Result Comment: IG% - Immature Granulocytes (promyelocytes, myelocytes and metamyelocytes) > 1% indicates that a LEFT SHIFT is Present. Performed By: #### L 505.5000, L501.9100, L501.2450, L700.6800, L100.0100, L500.4050 #### [facility] [address] [place], [address] Lymphocytes/100 WBC (Bld) 17.8 % Low 19-41 [facility] Comment on above: Performed By: #### L 505.5000, L501.9100, L501.2450, L700.6800, L100.0100, L500.4050 #### [facility] [address] [place], [address] MCH (RBC) [Entitic mass] 29.7 pg Normal 27.0-32.0 [facility] Comment on above: Performed By: #### L 505.5000, L501.9100, L501.2450, L700.6800, L100.0100, L500.4050 #### [facility] [address] [place], [address] MCHC (RBC) [Mass/Vol] 34.9 g/dL Normal 32-36 [facility] Comment on above: Performed By: #### L 505.5000, L501.9100, L501.2450, L700.6800, L100.0100, L500.4050 #### [facility] [address] [place], [address] MCV (RBC) [Entitic vol] 85.0 fL Normal 81-99 [facility] Comment on above: Performed By: #### L 505.5000, L501.9100, L501.2450, L700.6800, L100.0100, L500.4050 #### [facility] [address] [place], [address] Monocytes/100 WBC (Bld) 6.3 % Normal 0-10 [facility] Comment on above: Performed By: #### L 505.5000, L501.9100, L501.2450, L700.6800, L100.0100, L500.4050 #### [facility] [address] [place], [address] Neutrophils/100 WBC (Bld) 74.6 % High 47-70 [facility] Comment on above: Performed By: #### L 505.5000, L501.9100, L501.2450, L700.6800, L100.0100, L500.4050 #### [facility] [address] [place], [address] Nucleated RBC (Bld) [#/Vol] 0 10*3/uL Normal 0-5 [facility] Comment on above: Performed By: #### L 505.5000, L501.9100, L501.2450, L700.6800, L100.0100, L500.4050 #### [facility] [address] [place], [address] Platelet mean volume (Bld) [Entitic vol] 11.9 fL Normal 6.2-12.0 [facility] Comment on above: Performed By: #### L 505.5000, L501.9100, L501.2450, L700.6800, L100.0100, L500.4050 #### [facility] [address] [place], [address] Platelets (Bld) [#/Vol] 279 10*3/uL Normal 150-450 [facility] Comment on above: Performed By: #### L 505.5000, L501.9100, L501.2450, L700.6800, L100.0100, L500.4050 #### [facility] [address] [place] [place], [address] RBC (Bld) [#/Vol] 5.19 10*6/uL Normal 4.2-5.4 [facility] Comment on above: Performed By: #### L 505.5000, L501.9100, L501.2450, L700.6800, L100.0100, L500.4050 #### [facility] [address] [place], [address] RDW SD 40.6 fl Normal 35.1-43.9 [facility] Comment on above: Performed By: #### L 505.5000, L501.9100, L501.2450, L700.6800, L100.0100, L500.4050 #### [facility] [address] [place], [address] WBC (Bld) [#/Vol] 23.5 10*3/uL High 4.4-11.0 [facility] Comment on above: Performed By: #### L 505.5000, L501.9100, L501.2450, L700.6800, L100.0100, L500.4050 #### [facility] [address] [place], [address] Comprehensive Metabolic Prof ilon 07-15-2024 Albumin [Mass/Vol] 4.4 g/dL Normal 3.2-5.0 [facility] Comment on above: Performed By: #### L 505.5000, L501.9100, L501.2450, L700.6800, L100.0100, L500.4050 #### [facility] [address] [place], [address] Albumin/Globulin [Mass ratio] 1.2 {ratio} Normal 0.9-2.4 [facility] Comment on above: Performed By: #### L 505.5000, L501.9100, L501.2450, L700.6800, L100.0100, L500.4050 #### [facility] [address] [place], [address] ALK P 56 U/L Normal 45-117 [facility] Comment on above: Performed By: #### L 505.5000, L501.9100, L501.2450, L700.6800, L100.0100, L500.4050 #### [facility] [address] [place], [address] ALT [Catalytic activity/Vol] 47 U/L Normal 13-56 [facility] Comment on above: Performed By: #### L 505.5000, L501.9100, L501.2450, L700.6800, L100.0100, L500.4050 #### [facility] [address] [place], [address] AST [Catalytic activity/Vol] 31 U/L Normal 15-37 [facility] Comment on above: Performed By: #### L 505.5000, L501.9100, L501.2450, L700.6800, L100.0100, L500.4050 #### [facility] [address] [place], [address] Bilirubin [Mass/Vol] 2.20 mg/dL High 0.20-1.00 [facility] Comment on above: Result Comment: For patients on eltrombopag therapy, use of Dimension [place] TBIL is not recommended. Performed By: #### L 505.5000, L501.9100, L501.2450, L700.6800, L100.0100, L500.4050 #### [facility] [address] [place], [address] BUN/CRE 19.3 RATIO Normal 10-20 [facility] Comment on above: Performed By: #### L 505.5000, L501.9100, L501.2450, L700.6800, L100.0100, L500.4050 #### [facility] [address] [place], [address] CA,Total 10.9 mg/dL High 8.5-10.1 [facility] Comment on above: Performed By: #### L 505.5000, L501.9100, L501.2450, L700.6800, L100.0100, L500.4050 #### [facility] [address] [place], [address] Chloride [Moles/Vol] 101 mmol/L Normal 98-107 [facility] Comment on above: Performed By: #### L 505.5000, L501.9100, L501.2450, L700.6800, L100.0100, L500.4050 #### [facility] [address] [place], [address] CO2 [Moles/Vol] 29.0 mmol/L Normal 21.0-32.0 [facility] Comment on above: Performed By: #### L 505.5000, L501.9100, L501.2450, L700.6800, L100.0100, L500.4050 #### [facility] [address] [place], [address] Creatinine [Mass/Vol] 0.99 mg/dL Normal 0.55-1.02 [facility] Comment on above: Result Comment: The validity of the calculated GFR GFRAA in patients over 70 years has not been determined. Clinical correlation is essential. Performed By: #### L 505.5000, L501.9100, L501.2450, L700.6800, L100.0100, L500.4050 #### [facility] [address] [place], [place], [id number] ([address] ECRCL 94.64 ml/min Normal [facility] Comment on above: Performed By: #### L 505.5000, L501.9100, L501.2450, L700.6800, L100.0100, L500.4050 #### [facility] [address] [place], [address] EST GFR - AA 84 mL/min Normal >60 [facility] Comment on above: Result Comment: Afri can [place] GFR Calc Performed By: #### L 505.5000, L501.9100, L501.2450, L700.6800, L100.0100, L500.4050 #### [facility] [address] [place], [address] GAP 6 Normal 5-15 [facility] Comment on above: Performed By: #### L 505.5000, L501.9100, L501.2450, L700.6800, L100.0100, L500.4050 #### [facility] [address] [place], [address] GFR/1.73 sq M.predicted among non-blacks MDRD (S/P/Bld) [Vol rate/Area] 70 mL/min/{1.73_m2} Normal >60 [facility] Comment on above: Result Comment: Non- GFR Calc Performed By: #### L 505.5000, L501.9100, L501.2450, L700.6800, L100.0100, L500.4050 #### [facility] [address] [place], [address] Globulin (S) [Mass/Vol] 3.8 g/dL Normal 2.2-4.2 [facility] Comment on above: Performed By: #### L 505.5000, L501.9100, L501.2450, L700.6800, L100.0100, L500.4050 #### [facility] [address] [place], [address] Glucose [Mass/Vol] 119 mg/dL High 74-106 [facility] Comment on above: Result Comment: Fast ing Glucose result from 100 to 125 mg/dL suggests IMPAIRED HOMEOSTASIS per A.D.A. criteria. Performed By: #### L 505.5000, L501.9100, L501.2450, L700.6800, L100.0100, L500.4050 #### [facility] [address] [place], [address] Potassium [Moles/Vol] 3.0 mmol/L Low 3.5-5.1 [facility] Comment on above: Performed By: #### L 505.5000, L501.9100, L501.2450, L700.6800, L100.0100, L500.4050 #### [facility] [address] [place], [address] Sodium [Moles/Vol] 136 mmol/L Normal 136-145 [facility] Comment on above: Performed By: #### L 505.5000, L501.9100, L501.2450, L700.6800, L100.0100, L500.4050 #### [facility] [address] [place], [address] T PROT 8.2 g/dL Normal 6.4-8.2 [facility] Comment on above: Performed By: #### L 505.5000, L501.9100, L501.2450, L700.6800, L100.0100, L500.4050 #### [facility] [address] [place], [address] Urea nitrogen [Mass/Vol] 19 mg/dL High 7-18 [facility] Comment on above: Performed By: #### L 505.5000, L501.9100, L501.2450, L700.6800, L100.0100, L500.4050 #### [facility] [address] [place], [address] Emergency Department Summary on 07-15-2024 Emergency Department Summary [facility] Medical Records Department [address] [place] [address] Emergency Department Summary 07/15/24 MR#: [id number] Acct: [id number] Name: JOSHUA CHOUDHARY Rep #: [id number] : 1995 29 From: Oliver Marley DO [...] that she is a daily marijuana smoker. [facility] Medical History PCOS (polycystic [...] 0 current occupational status: employed current occupation: [employer] Smoking Status: Never smoker Smokeless [...] (more content not included)... Normal [facility] Lactic Acidon 07-15-2024 Lactate [Moles/Vol] 1.2 mmol/L Normal 0.4-1.9 [facility] Comment on above: Order Comment: Y Performed By: #### L 505.5000, L501.9100, L501.2450, L700.6800, L100.0100, L500.4050 #### [facility] [address] [place], [address] Lipaseon 07-15-2024 Lipase [Catalytic activity/Vol] 43 U/L Normal 13-75 [facility] Comment on above: Result Comment: Jose porter note: LIPASE revised reference range effective 23. New Lipase methodology. Expected to produce lower values than the previous assay method. NEW Reference Range: 13 - 75 U/L Performed By: #### L 505.5000, L501.9100, L501.2450, L700.6800, L100.0100, L500.4050 #### [facility] [address] [place], [address] ,Serum,hCG Quali.on 07-15-2024 HCG, SERUM QUAL Negative Normal [facility] Comment on above: Performed By: #### L 505.5000, L501.9100, L501.2450, L700.6800, L100.0100, L500.4050 #### [facility] [address] [place], [address] Urinalysis, Completeon 07-15 AMORPHOUS 1+ URATE Normal [facility] Comment on above: Order Comment: COLLE CTOR TO SPECIFY Performed By: #### L 505.5000, L501.9100, L501.2450, L700.6800, L100.0100, L500.4050 #### [facility] [address] [place], [address] EPI,SQUAMOUS 0-5 SEEN Normal 5-10 [facility] Comment on above: Order Comment: COLLE CTOR TO SPECIFY Performed By: #### L 505.5000, L501.9100, L501.2450, L700.6800, L100.0100, L500.4050 #### [facility] [address] [place], [address] RBC 5-10 SEEN Normal 0-5 [facility] Comment on above: Order Comment: COLLE CTOR TO SPECIFY Performed By: #### L 505.5000, L501.9100, L501.2450, L700.6800, L100.0100, L500.4050 #### [facility] [address] [place], [address] WBC 0-5 SEEN Normal 0-5 [facility] Comment on above: Order Comment: COLLE CTOR TO SPECIFY Performed By: #### L 505.5000, L501.9100, L501.2450, L700.6800, L100.0100, L500.4050 #### [facility] [address] [place], [address] BACTERIA 0 SEEN Normal None Seen [facility] Comment on above: Order Comment: COLLE CTOR TO SPECIFY Performed By: #### L 505.5000, L501.9100, L501.2450, L700.6800, L100.0100, L500.4050 #### [facility] [address] [place], [address] Mucus Ql (Urine sed) 0 SEEN Normal [facility] Comment on above: Order Comment: XI CTOR TO SPECIFY Performed By: #### L 505.5000, L501.9100, L501.2450, L700.6800, L100.0100, L500.4050 #### [facility] [address] [place], [address] Glucose Glucometer (BldC) [M ass/Vol]Ordered By: Ry James on 03-30-2023 Glucose [Mass/Vol] 121 mg/dL 74-106 [facility] Comment on above: MANAGEMENT OF PATIEN T CARE PER NURSING PROTOCOL Absolute lymphocyte countOrd ered By: Andres Loyola on 03-29-2023 Lymphocytes Auto (Unsp spec) [#/Vol] 4.08 10*3/uL 0.83-4.51 [facility] Amorphous sediment detection in urine sediment by light microscopyOrdered By: Andres Loyola on 03-29-2023 Amorphous sediment LM Ql (Urine sed) 3+ [facility] Basophil percentageOrdered B y: Andres Loyola on 03-29-2023 Basophil percentage 0 SEEN /hpf 0-5 [facility] Basophils/100 WBC (Bld) 0.4 % 0-1 [facility] Eosinophils/100 WBC (Bld) 0.4 % 0-5 [facility] Neutrophils (Bld) [#/Vol] 11.2 10*3/uL 2.0-7.7 [facility] Neutrophils/100 WBC (Bld) 67.3 % 47-70 [facility] WBC (Bld) [#/Vol] 16.6 10*3/uL 4.4-11.0 [facility] Bilirubin Test strip Ql (U)O rdered By: Andres Loyola on 03-29-2023 Bilirubin Ql (U) Negative Negative [facility] Blood erythrocytes count (nu mber/volume)Ordered By: Andres Loyola on 03-29-2023 RBC (Bld) [#/Vol] 4.76 10*6/uL 4.2-5.4 [facility] Blood hemoglobin measurement (mass/volume)Ordered By: Andres Loyola on 03-29-2023 Hemoglobin (Bld) [Mass/Vol] 13.7 g/dL 12.0-15.0 [facility] Blood lymphocytes/100 leukoc ytesOrdered By: Andres Loyola on 03-29-2023 Lymphocytes/100 WBC (Bld) 24.7 % 19-41 [facility] Blood monocytes/100 leukocyt esOrdered By: Andres Loyola on 03-29-2023 Monocytes/100 WBC (Bld) 6.5 % 0-10 [facility] Blood platelet mean volumeOr dered By: Andres Loyola on 03-29-2023 Platelet mean volume (Bld) [Entitic vol] 11.4 fL 6.2-12.0 [facility] Determination of erythrocyte mean corpuscular volume (MCV)Ordered By: Andres Loyola on 03-29-2023 MCV (RBC) [Entitic vol] 83.8 fL 81-99 [facility] Hematocrit Auto (Bld) [Volum e fraction]Ordered By: Andres Loyola on 03-29-2023 Hematocrit (Bld) [Volume fraction] 39.9 % 37-47 [facility] Ketones Test strip Ql (U)Ord ered By: Andres Loyola on 03-29-2023 Ketones Ql (U) 15 mg/dl Negative [facility] - Hematology and Cell countsOrdered By: Andres Loyola on 03-29-2023 Erythrocyte distribution width (RBC) [Entitic vol] 41.5 fL 35.1-43.9 [facility] Erythrocyte distribution width (RBC) [Ratio] 13.7 % 11.6-14.6 [facility] Immature granulocytes/100 WBC (Bld) 0.700 % 0.0-0.9 [facility] Comment on above: IG% - Immature Granu locytes (promyelocytes, myelocytes and metamyelocytes) > 1% indicates that a LEFT SHIFT is Present. MCH (RBC) [Entitic mass] 28.8 pg 27.0-32.0 [facility] Nucleated RBC/100 WBC (Bld) [Ratio] 0 % 0-5 [facility] MCHC Auto (RBC) [Mass/Vol]Or dered By: Andres Loyola on 03-29-2023 MCHC (RBC) [Mass/Vol] 34.3 g/dL 32-36 [facility] Mucus LM Ql (Urine sed)Order ed By: Andres Loyola on 03-29-2023 Mucus Ql (Urine sed) 0 SEEN /hpf [facility] Nitrite Test strip Ql (U)Ord ered By: Andres Loyola on 03-29-2023 Nitrite Ql (U) Negative Negative [facility] Platelets bldOrdered By: Rufino Loyola on 03-29-2023 Platelets (Bld) [#/Vol] 308 10*3/uL 150-450 [facility] Protein Test strip Ql (U)Ord ered By: Andres Loyola on 03-29-2023 Protein Ql (U) 30 mg/dl Negative [facility] Squamous epithelial cells de tection in urine sediment by light microscopyOrdered By: Andres Loyola on 03-29-2023 Epithelial cells.squamous LM Ql (Urine sed) 0 SEEN /hpf 5-10 [facility] Urine blood detectionOrdered By: Andres Loyola on 03-29-2023 RBC Ql (U) 25 /ul Negative [facility] RBC Ql (U) 0 SEEN /hpf 0-5 [facility] Urine clarityOrdered By: Rufino Loyola on 03-29-2023 Clarity (U) Sl. Cloudy Clear [facility] Urine color determinationOrd ered By: Andres Loyola on 03-29-2023 Color (U) Yellow Yellow [facility] Urine glucose detectionOrder ed By: Andres Loyola on 03-29-2023 Glucose Ql (U) Normal mg/dl Normal [facility] Urine leukocyte esterase det ection by dipstickOrdered By: Andres Loyola on 03-29-2023 Leukocyte esterase Test strip Ql (U) 25 /ul Negative [facility] Urine pHOrdered By: Andres Loyola on 03-29-2023 pH (U) 5.0 [pH] 5.0 - 8.0 [facility] Urine sediment bacteria coun t by microscopy (number/high power field)Ordered By: Andres Loyola on 03-29-2023 Bacteria LM.HPF (Urine sed) [#/Area] 0 /[HPF] None Seen [facility] Urine specific gravity measu rementOrdered By: Andres Loyola on 03-29-2023 Specific gravity (U) [Rel density] 1.025 1.002-1.03 0 [facility] Urobilinogen Auto test strip Ql (U)Ordered By: Andres Loyola on 03-29-2023 Urobilinogen Ql (U) 1 mg/dl Normal [facility] Basophil percentageOrdered B y: Ry James on 03-28-2023 Chloride [Moles/Vol] 106 mmol/L 98-107 [facility] Glucose [Mass/Vol] 160 mg/dL 74-106 [facility] Comment on above: Fasting Glucose resu lt greater than or equal to 126 mg/dL suggests DIABETES MELLITUS per A.D.A. criteria. Potassium [Moles/Vol] 3.4 mmol/L 3.5-5.1 [facility] Sodium [Moles/Vol] 138 mmol/L 136-145 [facility] Beta hCG serum qualOrdered B y: Ry James on 03-28-2023 Beta HCG ( test) Ql Negative [facility] Influenza virus A and B and SARS-CoV-2 (COVID-19) Ag panel - Upper respiratory specimOrdered By: Ry James on 03-28-2023 SARS-CoV-2 (COVID-19) RNA MURALI+probe Ql (Resp) [facility] - Chemistry and C hemistry - challengeOrdered By: Ry James on 03-28-2023 CO2 [Moles/Vol] 20.0 mmol/L 21.0-32.0 [facility] Urea nitrogen/Creatinine [Mass ratio] 10.2 mg/mg 10-20 [facility] - Drug toxicology Ordered By: Ry James on 03-28-2023 Amphetamines Ql (U) Negative <1000 ng/mL [facility] Benzodiazepines Ql (U) Negative < 200 ng/mL [facility] Cannabinoids Screen Ql (U) Positive < 50 ng/mL [facility] Cocaine Ql (U) Negative < 300 ng/mL [facility] Opiates Ql (U) Positive < 300 ng/mL [facility] No Panel InformationOrdered By: Ry James on 03-28-2023 MDMA (Ecstasy) Screen Negative < 500 ng/mL [facility] Urine Barbiturates Screen Negative < 200 ng/mL [facility] Urine Drug Screen Comment [facility] Comment on above: CONFIRMATORY TESTING FOR ALL [...] Screen Negative < 300 ng/mL [facility] Estimated Creatinine Clearance Calc 71.30 ml/min [facility] Estimated GFR (MDRD) Amer 77 mL/min >60 [facility] Comment on above: GFR Calc Estimated GFR (MDRD) Non-Af Amer 63 mL/min >60 [facility] Comment on above: Non- GFR Calc Ethyl Alcohol Level < 3.0 mg/dL [facility] Comment on above: The serum:whole bloo d ethanol ratio is approximately 1.14and varies slightly with hematocrit. Medical Alcohol reference interval and critical value innon-tolerant individuals; 50 - 100 Impairment 100 Intoxication 100 - 250 Severe Poisoning 250 - 400 Deep/possible fatal coma Serum or plasma calcium prakash urement (mass/volume)Ordered By: Ry James on 03-28-2023 Calcium [Mass/Vol] 11.1 mg/dL 8.5-10.1 [facility] Serum or plasma creatinine m easurement (mass/volume)Ordered By: Ry James on 03-28-2023 Creatinine [Mass/Vol] 1.08 mg/dL 0.55-1.02 [facility] Comment on above: The validity of the calculated GFR & GFRAA in patients over 70 years has not been determined. Clinical correlation is essential. Serum or plasma urea nitroge n measurement (mass/volume)Ordered By: Ry James on 03-28-2023 Urea nitrogen [Mass/Vol] 11 mg/dL 7-18 [facility] Thin prep Papanicolaou smear with manual screeningOrdered By: Ry James on 03-28-2023 Thin prep Papanicolaou smear with manual screening 12 5-15 [facility] Urine phencyclidine (PCP) de tectionOrdered By: Ry James on 03-28-2023 Phencyclidine Ql (U) Negative < 25 ng/mL [facility] ANES Shey 10-04-2017 ANES POST HNO ID: [id number] thor: Miguel Andradeervice: AnesthesiologyAuthor Type: AnesthesiologistType: Anesthesia [...] 2017 : 4:42 PM PAGER/CONTACT #: anesthesia [facility] ANE PREOPon 10-04-2017 ANES PREOP HNO ID: [id number] thor: Miguel Andradeervice: AnesthesiologyAuthor Type: AnesthesiologistType: Anesthesia [...] October 04, 2017 : 12:21 PM CSN: [id number] [facility] BRIEF OP NOTon 10-04-2017 BRIEF OP NOT HNO ID: [id number] thor: Basim Sheridanervice: General SurgeryAuthor Type: PhysicianType: Brief Op NoteFiled: 10/04/2017 2:09 PMNote Text:BRIEF OPERATIVE NOTATION FOR SURGICAL PROCEDURE.Joshua Moscoso 1995 [id number] femaleLOG ID: [id number]/Procedure Date: 10/04/2017Incision/Procedure Start Time: 1:06 PMIncision Close/Procedure End Time: 2:02 PMSurgeon(s)/Proceduralist(s ) and Forester Aide(s):Surgeon(s) and Role: * Basim Prince - PrimaryPhysician Forester Aide: Pamela Wall PHYSICIAN:OutpatientDEPT: JUDITH PROVIDER: James POS:[id number] : GeneralASA CLASS: 2 - mildDIAGNOSIS: biliary colic, cholelithiasisPROCEDURE: LAPAROSCOPIC CHOLECYSTECTOMY WITH INTRAOPERATIVE CHOLEANGIOGRAM- 92266-804UQI: 1000EBL: 10Specimens: gtallbladderADDITIONAL DIAGNOSES:FINDINGS: normal IOCCOMPLICATIONS: NonePMHx -PAST MEDICAL HISTORYDiagnosis Date- CholelithiasesCOMORBIDITIES - ObesityPost Op Occurrences - NoneWound Classification - Clean ContaminatedOperative note dictated in the dictation system. - [id number] Prince MD [facility] HISTORY PHYSICALon 201 8 HISTORY PHYSICAL HNO ID: [id number] thor: Basim Vargheseice: General SurgeryAuthor Type: PhysicianType: [...] pulse 76, height 167.6 cm (5' 6), anwutf85.4 kg (206 lb). Body mass index is [...] procedure.?Planned Procedure: LAPAROSCOPIC CHOLECYSTECTOMY WITH INTRAOPERATIVECHOLEANGIOGRAM - 91634-703?Planned antibiotic: Ancef 2gm IVPB medical front desk specialist to OR?SCDs needed - Yes?Forester Aide Needed - No?Diagnoses: (R10.11) RUQ pain (primary encounter diagnosis)? Bsaim Prince MD [facility] NURSING PROGon 10-04-2017 NURSING PROG HNO ID: [id number] thor: [place]) Suzan Wilson: (none)Author Type: Registered NurseType: Nursing Progress NoteFiled: 10/04/2017 6:57 PMNote Text: Nursing Progress NotePatient Name: Joshua DiazRN: [id number] Location: [place] Surgery/[place] Surgery Daily Note:Pt. States her nausea is gone and feels much better. Pain tolerable menezes/c home and wants to be d/c home.This note was completed by: Jennie Wilson RN [facility] NURSING PROG HNO ID: [id number] thor: [place]) Suzan Wilson: (none)Author Type: Registered NurseType: Nursing Progress NoteFiled: 10/04/2017 5:00 PMNote Text: Nursing Progress NotePatient Name: Joshua DiazRN: [id number] Location: [place] Surgery/[place] Surgery Daily Note:Pt up to BR with assist. Pt. Able to urinate without difficulty. Smallemesis prior to getting up. States nausea feels better.This note was completed by: Jennie Wilson RN [facility] NURSING PROG HNO ID: [id number] thor: Suzan Morales Rn: (none)Author Type: Registered NurseType: Nursing Progress NoteFiled: 10/04/2017 2:05 PMNote Text: Nursing Progress NotePatient Name: Joshua DiazRN: [id number] Location: [place] Surgery/[place] Surgery Report off to ANA Egan for lunch coverage. IV site withoutcomplications. Pt smiling, pleasant and in NAD. Care relinquished.This note was completed by: Yamilet Horta RN [facility] NURSING PROG HNO ID: [id number] thor: Yamilet (Rn) Dina Hortaice: (none)Author Type: Registered NurseType: Nursing Progress NoteFiled: 10/04/2017 11:08 AMNote Text: Nursing Progress NotePatient Name: Joshua DiazRN: [id number] Location: [place] Surgery/[place] Surgery OR notified RN of possible 30-40 minute delay. Pt/family aware. Ptcontinues to laugh and denies pain or concerns. IV site withoutcomplications, NPO maintained. Warm blanket applied.This note was completed by: Yamilet Horta RN [facility] NURSING PROG HNO ID: [id number] thor: Yamilet (Rn) Dina Hortaice: (none)Author Type: Registered NurseType: Nursing Progress NoteFiled: 10/04/2017 10:36 AMNote Text: Nursing Progress NotePatient Name: Joshua RodriguezN: [id number] Location: [place] Surgery/[place] Surgery Family at bedside. IV infusing and site without complications. Ptlaughing and refuses warm blanket. Ready for OR.This note was completed by: Yamilet Horta RN [facility] OPERATIVE NOon 10-04-2017 OPERATIVE NO HNO ID: [id number] thor: Basim Sheridanervice: General SurgeryAuthor Type: PhysicianType: Operative ReportFiled: 10/05/2017 8:02 AMNote Text:[facility]- Operative ReportBESSJOSHUA MDOB: 1995 AGE: 22 SEX: FMRN: [id number] ACCTNUM: [id number] SVC: GENS LOCATION: [id number] PHYSICIAN: BASIM BHANDARITE OF PROCEDURE: 10/04/2017SURGEON: Basim Prince M.D.BIOPHARMACEUTICAL REP: NONEANESTHESIA: General endotracheal.PREOPERATIVE DIAGNOSIS(ES): Symptomatic cholelithiasis, biliary colic.POSTOPERATIVE DIAGNOSIS(ES): Symptomatic cholelithiasis, biliary colic,normal cholangiogram.NAME OF OPERATION: Laparoscopic cholecystectomy with cholangiogram.INDICATIONS:ES TIMATED BLOOD LOSS: 10 mL.COMPLICATIONS: None.SPECIMENS: Gallbladder.DRAINS: None.URINE OUTPUT: No catheter.LOG ID: [id number].START TIME: 1:06 p.m.END TIME: 2:02 p.m.ASA: 2.IV [...] removedthrough the umbilical port site. 0 Maxon qbcims-[id number]-[id number] suture wasplaced into the defect. The gallbladder [...] Welsh, physician'sassistant, provided skin closure.Basim Prince M.D.General SurgeryRG:[id number]: 10/04/2017 14:09:38T: 10/04/2017 22:16:14Job #: [id number] 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 Patient to use [facility] Bedside Delivery - YES2. If fax, patient would like us to fax prescriptions to [facility] a. Pharmacy: b. Location: c. Phone:3. Insurance card on file - YES4. [facility] card for [facility] B[facility] DELIV[facility] SERVICEPatient Name: Joshua TrotterRN: [id number] marked outpatient medications were Filled at: [place] and delivered tothe patient's bedside to pharm [...] ODT 10/02 ORAL PROBIOTIC 4X ORALDiana Dorian (Building Mechanic)PAGER: [phone] 2017 3:[address] [facility] PT EDon 10-04-2017 PT ED HNO ID: [id number] thor: Yamilet (Rn) DAYANA Hortaervice: (none)Author Type: Registered NurseType: Patient EducationFiled: 10/04/2017 10:35 AMNote Text:PRE OP LEARNING ASSESSMENTPROCEDURE/SURGERY: Lap cholecystectomyREADINESS TO LEARN eagerCOGNITIVE ABILITY: Alert and orientedMOTIVATION TO LEARN: EagerFAMILY SUPPORT: High - Very involved in pt carePATIENT LEARNS BEST BY: Individual InstructionFACTORS AFFECTING LEARNING: NonePHYSICAL LIMITATIONS AFFECTING LEARNING: NoneElectronically Signed By: Yamilet Horta RN In [facility] SURGICAL PATHOLOGYon 018 SURGICAL PATHOLOGY [facility]: [id number] Physician: BASIM PRINCE MD FINAL DIAGNOSISGallbladder, cholecystectomy [...] surface is henry-pink and displays normal mucosal ridges.Medical Screener sections are submitted in formalin in one cassette.KVB/dss 10/05/2017Gross examination performed at [facility], [address] [place] [address] of Report: 10/06/2017Date of Procedure: 10/04/2017Date of Receipt: 10/04/2017Submitted by: BASIM PRINCE MDLocation: MEORDiagnostic interpretation performed at [facility], [address] [place], [place] [id number]. [facility] Comment on above: Performed By: #### P ATHS ####[facility] [id number] [place], [place] [id number] XR CHOLANGIOGRAM INTRAOPon 0 10-04-2017 Cholesterol * * *Final Report* * *DATE OF EXAM: Oct 04 2017 1:35PM MDX 5421 - XR CHOLANGIOGRAM INTRAOP / REASON: EPIGASTRIC PAIN, CHOLELITHIASIS * * * * Physician Interpretation * * * * HISTORY: Cholelithiasis, epigastric painTECHNIQUE: Fluoroscopic intraoperative intensifier screen images were done.Fluoroscopic Radiation Summary:Plane A, Air Kerma: 2.5 mGyDose Area Product (DAP): 780.9 mGy*faQ5Zrxctn time: 0:12 min:secRESULT: Contrast is shown in the biliary tree and flowing into the duodenum. No dilatation or obvious filling defect is seen.IMPRESSION: As in results.Recreational Therapist: PSCB Transcribe Date/Time: Oct 04 2017 2:19PDictated by : CLOVER SHARMA MDThicynthia examination was interpreted and the report reviewed and electronically signed by: CLOVER SHARMA MD on Oct 04 2017 2:19PM [id number] [facility] NURSING PROGon 10-03-2017 NURSING PROG HNO ID: [id number] thor: Gloria Amado (Rn) Enedelia, RNService: (none)Author Type: Registered NurseType: Nursing Progress NoteFiled: 10/03/2017 3:45 PMNote Text:PACC Nurse Progress NoteHistory AND Physical:PACC Visit Date: 10/03/2017Labs Within Last 6 Months:N/AImaging Within Last 12 Months:See chartCardiac Testing:N/ALast Menstrual Period:LMP Date: 09/12/2017Risk Assessment:N/AAnesthesia Review:DOSNarrative:No new consults or testing ordered.Pre-op Considerations:N/AChart Check:Maurisio Mcdaniels RNJanuary 2017 3:[address] [facility] HOSPon 09-28-2017 HOSP Patient:Joshua Moscoso MRN: Height:5' [...] days for the following basenames: K,HCTProgress Notes ([facility]):Teresa Sorto MA 09/28/2017 3:21 PM [...] last Mammogram screening? N/A Last Colonoscopy: n/Addie Marcelo MD 09/28/2017 3:39 PM SignedHISTORY AND PHYSICALEmily Lucas [facility]1993REFERRING PHYSICIAN: Yousif Houser, [facility] COMPLAINT: New PatientHPI: Joshua is a [...] procedure.Planned Procedure: LAPAROSCOPIC CHOLECYSTECTOMY WITH INTRAOPERATIVECHOLEANGIOGRAM - [id number] antibiotic: Ancef 2gm IVPB medical front desk specialist to ORSCDs needed - YesAssistant Needed - NoDiagnoses: (R10.11) RUQ pain (primary encounter diagnosis) Basim Prince MD [facility] Lab Report: ,Urineo n 03-07-2017 Beta HCG ( test) Ql (U) Negative [facility] [employer] Work Phone: Office Visit: GERDon Dietary management education, guidance, and counseling (procedure) yes Invalid Interpretation Code [facility] [employer] Work Phone: Documentation of current medications (procedure) Done Invalid Interpretation Code [facility] Work Phone: Fall risk assessment No [facility] Work Phone: Tobacco smoking status NHIS Never [facility] [employer] Work Phone: Tobacco smoking status NHIS Former smoker [facility] Work Phone: Tobacco use CPHS Former smoker Invalid Interpretation Code [facility] Work Phone: Office Visit: GERDon 017 General categories [interpretation] of Cervical or vaginal smear or scraping by Cyto stain Unknown [facility] Work Phone: Vital Signs Date Time Vital Sign Value Performing Clinician Facility 03-30-2025 22:03-0400 Body temperature 97.9 [degF] Lesa Trill [employer] Work Phone: [facility] 03-30-2025 22:03-0400 Diastolic blood pressure 62 mm[Hg] Lesa Trill [employer] Work Phone: [facility] 03-30-2025 22:03-0400 Heart rate 88 /min Lesa Trill [employer] Work Phone: [facility] 03-30-2025 22:03-0400 Respiratory rate 15 /min Lesa Trill [employer] Work Phone: [facility] 03-30-2025 22:03-0400 SaO2% (BldA) [Mass fraction] 99 % Lesa Trill [employer] Work Phone: [facility] 03-30-2025 22:03-0400 Systolic blood pressure 112 mm[Hg] Lesa Trill [employer] Work Phone: [facility] 03-30-2025 18:15-0400 Body height 167.64 cm Lesa Trill [employer] Work Phone: [facility] 03-30-2025 18:15-0400 Body mass index (BMI) [Ratio] 29.4 kg/m2 Lesa Trill [employer] Work Phone: [facility] 03-30-2025 18:15-0400 Body weight 82.68 kg Lesa Trill [employer] Work Phone: [facility] 03-30-2025 11:56-0400 Body temperature 97.9 [degF] Lesa Trill [employer] Work Phone: [facility] 03-30-2025 11:56-0400 Diastolic blood pressure 74 mm[Hg] Lesa Trill [employer] Work Phone: [facility] 03-30-2025 11:56-0400 Heart rate 70 /min Lesa Trill [employer] Work Phone: [facility] 03-30-2025 11:56-0400 Respiratory rate 14 /min Lesa Trill [employer] Work Phone: [facility] 03-30-2025 11:56-0400 SaO2% (BldA) [Mass fraction] 100 % Lesa Trill [employer] Work Phone: [facility] 03-30-2025 11:56-0400 Systolic blood pressure 120 mm[Hg] Lesa Trill [employer] Work Phone: [facility] 03-30-2025 09:52-0400 Body height 167.64 cm Lesa Trill [employer] Work Phone: [facility] 03-30-2025 09:52-0400 Body mass index (BMI) [Ratio] 29.6 kg/m2 Lesa Trill [employer] Work Phone: [facility] 03-30-2025 09:52-0400 Body weight 83.27 kg Lesa Trill [employer] Work Phone: [facility] 03-14-2025 22:25-0400 Body temperature 98.1 [degF] Lesa Trill [employer] Work Phone: [facility] 03-14-2025 22:25-0400 Diastolic blood pressure 91 mm[Hg] Lesa Trill [employer] Work Phone: [facility] 03-14-2025 22:25-0400 Heart rate 59 /min Lesa Trill [employer] Work Phone: [facility] 03-14-2025 22:25-0400 Respiratory rate 16 /min Lesa Trill [employer] Work Phone: [facility] 03-14-2025 22:25-0400 SaO2% (BldA) [Mass fraction] 97 % Lesa Trill [employer] Work Phone: [facility] 03-14-2025 22:25-0400 Systolic blood pressure 125 mm[Hg] Lesa Trill [employer] Work Phone: [facility] 03-14-2025 19:38-0400 Body height 167.64 cm Lesa Trill [employer] Work Phone: [facility] 03-14-2025 19:38-0400 Body mass index (BMI) [Ratio] 28.7 kg/m2 Lesa Trill [employer] Work Phone: [facility] 03-14-2025 19:38-0400 Body weight 80.73 kg Lesa Trill [employer] Work Phone: [facility] 02-06-2025 15:24-0400 Body temperature 98.2 [degF] Lesa Trill [employer] Work Phone: [facility] 02-06-2025 15:24-0400 Diastolic blood pressure 62 mm[Hg] Lesa Trill [employer] Work Phone: [facility] 02-06-2025 15:24-0400 Heart rate 85 /min Lesa Trill [employer] Work Phone: [facility] 02-06-2025 15:24-0400 Respiratory rate 16 /min Lesa Trill [employer] Work Phone: [facility] 02-06-2025 15:24-0400 SaO2% (BldA) [Mass fraction] 97 % Lesa Trill [employer] Work Phone: [facility] 02-06-2025 15:24-0400 Systolic blood pressure 127 mm[Hg] Lesa Trill [employer] Work Phone: [facility] 02-06-2025 09:37-0400 Body height 167.64 cm Lesa Triisadora [employer] Work Phone: [facility] 02-06-2025 09:37-0400 Body mass index (BMI) [Ratio] 29.4 kg/m2 Lesa Trill [employer] Work Phone: [facility] 02-06-2025 09:37-0400 Body weight 82.7 kg Lesa Trill [employer] Work Phone: [facility] 11-08-2024 13:29-0500 Body height 167.6 cm Lesa Soler DIRECTOR OF EMERGENCY NURSING.WATER ATTENDANT Work Phone: [facility] 11-08-2024 13:29-0500 Body mass index (BMI) [Ratio] 31.31 kg/m2 Lesa Soler APRN.WATER ATTENDANT Work Phone: [facility] 11-08-2024 13:29-0500 Body temperature 98.1 [degF] Lesa Soler DIRECTOR OF EMERGENCY NURSING.WATER ATTENDANT Work Phone: [facility] 11-08-2024 13:29-0500 Body weight 88 kg Lesa Soler DIRECTOR OF EMERGENCY NURSING.WATER ATTENDANT Work Phone: [facility] 11-08-2024 13:29-0500 Diastolic blood pressure 70 mm[Hg] Lesa Soler APRN.WATER ATTENDANT Work Phone: [facility] 11-08-2024 13:29-0500 Heart rate 69 /min Lesa Soler DIRECTOR OF EMERGENCY NURSING.WATER ATTENDANT Work Phone: [facility] 11-08-2024 13:29-0500 SaO2% (BldA) [Mass fraction] 98 % Lesa Soler DIRECTOR OF EMERGENCY NURSING.WATER ATTENDANT Work Phone: [facility] 11-08-2024 13:29-0500 Systolic blood pressure 112 mm[Hg] Lesa Soler DIRECTOR OF EMERGENCY NURSING.WATER ATTENDANT Work Phone: [facility] 11-03-2024 10:57-0500 Body mass index (BMI) [Ratio] 32.27 kg/m2 Keely Reddy DIRECTOR OF EMERGENCY NURSING.WATER ATTENDANT Work Phone: [facility] 11-03-2024 10:57-0500 Body temperature 99.61 [degF] Keely Reddy DIRECTOR OF EMERGENCY NURSING.WATER ATTENDANT Work Phone: [facility] 11-03-2024 10:57-0500 Body weight 90.7 kg Keely Reddy DIRECTOR OF EMERGENCY NURSING.WATER ATTENDANT Work Phone: [facility] 11-03-2024 10:57-0500 Diastolic blood pressure 71 mm[Hg] Keely Reddy DIRECTOR OF EMERGENCY NURSING.WATER ATTENDANT Work Phone: [facility] 11-03-2024 10:57-0500 Heart rate 77 /min Keely Reddy DIRECTOR OF EMERGENCY NURSING.WATER ATTENDANT Work Phone: [facility] 11-03-2024 10:57-0500 Respiratory rate 18 /min Keely Reddy DIRECTOR OF EMERGENCY NURSING.WATER ATTENDANT Work Phone: [facility] 11-03-2024 10:57-0500 SaO2% (BldA) [Mass fraction] 98 % Keely Reddy DIRECTOR OF EMERGENCY NURSING.WATER ATTENDANT Work Phone: [facility] 11-03-2024 10:57-0500 Systolic blood pressure 105 mm[Hg] Keely Redyd DIRECTOR OF EMERGENCY NURSING.WATER ATTENDANT Work Phone: [facility] 10-30-2024 08:01-0500 Body height 167.[address] [facility] 10-30-2024 08:01-0500 Body mass index (BMI) [Ratio] 31.47 kg/m2 Staci Givens RD [facility] 10-30-2024 08:01-0500 Body weight 88.[address] [facility] Comment on above: 1 mo ago at last Dr dias 09-11-2024 13:44-0500 Body height 167.[address] [facility] 09-11-2024 13:44-0500 Body mass index (BMI) [Ratio] 32.77 kg/m2 Staci Givens RD [facility] 09-11-2024 13:44-0500 Body weight 92.[address] [facility] 09-03-2024 13:25-0500 Body height 167.6 cm Lesa Soler APRN.WATER ATTENDANT Work Phone: [facility] 09-03-2024 13:25-0500 Body mass index (BMI) [Ratio] 32.77 kg/m2 Lesa Soler DIRECTOR OF EMERGENCY NURSING.WATER ATTENDANT Work Phone: [facility] 09-03-2024 13:25-0500 Body temperature 98.1 [degF] Lesa Soler DIRECTOR OF EMERGENCY NURSING.WATER ATTENDANT Work Phone: [facility] 09-03-2024 13:25-0500 Body weight 92.08 kg Lesa Soler DIRECTOR OF EMERGENCY NURSING.WATER ATTENDANT Work Phone: [facility] 09-03-2024 13:25-0500 Diastolic blood pressure 62 mm[Hg] Lesa Soler APRN.WATER ATTENDANT Work Phone: [facility] 09-03-2024 13:25-0500 Heart rate 78 /min Lesa Soler APRN.WATER ATTENDANT Work Phone: [facility] 09-03-2024 13:25-0500 SaO2% (BldA) [Mass fraction] 97 % Lesa Soler DIRECTOR OF EMERGENCY NURSING.WATER ATTENDANT Work Phone: [facility] 09-03-2024 13:25-0500 Systolic blood pressure 108 mm[Hg] Lesa Soler DIRECTOR OF EMERGENCY NURSING.WATER ATTENDANT Work Phone: [facility] 08-28-2024 09:55-0500 Body height 167.6 cm Mario Monique MD Work Phone: [facility] 08-28-2024 09:55-0500 Body mass index (BMI) [Ratio] 33.57 kg/m2 Mario Monique MD Work Phone: [facility] 08-28-2024 09:55-0500 Body weight 94.35 kg Mario Monique MD Work Phone: [facility] 08-28-2024 09:55-0500 Diastolic blood pressure 71 mm[Hg] Mario Monique MD Work Phone: [facility] 08-28-2024 09:55-0500 Heart rate 72 /min Mario Monique MD Work Phone: [facility] 08-28-2024 09:55-0500 Systolic blood pressure 108 mm[Hg] Mario Monique MD Work Phone: [facility] 03-30-2023 09:14-0400 Respiratory rate 14 /min [facility] 03-30-2023 07:47-0400 Diastolic blood pressure 79 mm[Hg] [facility] 03-30-2023 07:47-0400 Heart rate 81 /min [facility] 03-30-2023 07:47-0400 SaO2% (BldA) [Mass fraction] 96 % [facility] 03-30-2023 07:47-0400 Systolic blood pressure 141 mm[Hg] [facility] 03-29-2023 21:44-0400 Body temperature 97.2 [degF] [facility] 03-28-2023 09:05-0400 Body height 167.64 cm [facility] 03-28-2023 09:05-0400 Body mass index (BMI) [Ratio] 32.3 kg/m2 [facility] 03-28-2023 09:05-0400 Body weight 90.71 kg [facility] 02-28-2017 14:13-0400 BMI (Body Mass Index) 31.79 kg/m2 Joshua Marshall RN RN [facility] Work Phone: 02-28-2017 14:13-0400 Body Temperature 98.1 [degF] Joshua Marshall RN RN [facility] Work Phone: 02-28-2017 14:13-0400 Body weight 89.36 kg Collette Curiel MD [facility] Work Phone: 02-28-2017 14:13-0400 BP Diastolic 88 mm[Hg] Joshua Marshall RN RN [facility] Work Phone: 02-28-2017 14:13-0400 BP Systolic 120 mm[Hg] Joshua Marshall RN RN [facility] Work Phone: 02-28-2017 14:130400 BSA (Body Surface Area) 1.99 m2 Joshua Marshall RN RN [facility] Work Phone: 02-28-2017 14:13-0400 Height 167.64 cm Joshua Marshall RN RN [facility] Work Phone: 02-28-2017 14:13-0400 Pulse (Heart Rate) 58 /min Joshua Marshall RN RN [facility] Work Phone: 02-28-2017 14:130400 Pulse Oximetry 98 % Joshua Marshall RN RN [facility] Work Phone: 02-28-2017 14:13-0400 Respiratory Rate 16 /min Joshua Marshall RN RN [facility] [employer] Work Phone: 02-28-2017 14:130400 Weight 89.36 kg Joshua Marshall RN RN [facility] Work Phone: Encounters Encounter Date Encounter Type Care Provider Facility Start: 04-02-2025 End: 04-02-2025 ambulatory LESA SOLER Facility:[facility] Start: 04-01-2025 End: 04-01-2025 ambulatory Lesa Soler DIRECTOR OF EMERGENCY NURSING.WATER ATTENDANT [facility] Phone[facility] Comment on above: ER F/U ([facility] ) Start: 03-30-2025 End: 03-30-2025 Emergency department patient visit Lesa DANIEL Work Phone: -Emergency Department Work Phone: Start: 03-30-2025 End: 03-30-2025 Emergency department patient visit Lesa DANIEL Work Phone: -Emergency Department Work Phone: Start: 03-21-2025 End: 03-21-2025 Telephone encounter Lesa Soler APRN.CNP Work Phone: [facility] Comment on above: Lab Orders Start: 03-18-2025 End: 03-18-2025 ambulatory Lesa Soler APRN.CNP Work Phone: [facility] Start: 03-18-2025 End: 03-18-2025 Follow-up encounter Lesa Soler APRN.WATER ATTENDANT Work Phone: [facility] Comment on above: ED Follow-up ([facility] ED 03/14/2025) Start: 03-14-2025 End: 03-14-2025 Emergency department patient visit Lesa DANIEL Work Phone: -Emergency Department Work Phone: Start: 02-14-2025 End: 02-14-2025 ambulatory Lesa Soler APRN.WATER ATTENDANT Work Phone: [facility] Start: 02-14-2025 End: 02-14-2025 Follow-up encounter Lesa Soler APRN.WATER ATTENDANT Work Phone: [facility] Comment on above: ED Follow-up ([facility] ED 02/06/2025 and [facility] ED 02/08/2025) Start: 02-08-2025 End: 02-08-2025 Emergency department patient visit [facility] Start: 02-06-2025 End: 02-06-2025 Emergency department patient [...] 11-12-2024 End: 11-12-2024 Follow-up encounter Lesa Soler APRN.WATER ATTENDANT Work Phone: [facility] Start: 11-08-2024 End: 11-08-2024 Telephone encounter Lesa Soler APRN.WATER ATTENDANT Work Phone: [facility] Start: 11-08-2024 End: 11-08-2024 Patient encounter procedure Lesa Soler APRN.WATER ATTENDANT Work Phone: [facility] Comment on above: Type 2 diabetes kamlesh itus without complication, without long- term current use of insulin (HCC) (Primary Dx); Dyslipidemia; Hirsutism Start: 11-08-2024 End: 11-08-2024 ambulatory LESA SOLER Facility:[facility] Start: 11-03-2024 End: 11-03-2024 ambulatory LESA SOLER Facility:[facility] Start: 11-03-2024 End: 11-03-2024 Patient encounter procedure Keely Sima FELIZ.WATER ATTENDANT Work Phone: [facility] Comment on above: URI, acute (Primary [...] department patient visit Christos Esparza Facility:[facility] Start: 09-19-2024 End: 09-20-2024 Telephone encounter Lesa Soler APRN.WATER ATTENDANT Work Phone: [facility] Comment on above: Results (labs) Start: 09-11-2024 End: 09-11-2024 ambulatory STACI GIVENS Facility:[facility] Start: 09-11-2024 End: 09-11-[address]aci Givens RD Nutrition [facility] Comment on above: Dietary counseling ( Primary Dx); Type 2 diabetes mellitus without complication, without long-term current use of insulin (HCC); PCOS (polycystic ovarian syndrome) Start: 09-11-2024 End: 09-11-2024 Telemedicine consultation with patient Staci Givens CAR[facility] Start: 09-11-2024 End: 09-11-2024 ambulatory LESA SOLER Facility:[facility] Start: 09-03-2024 End: 09-03-2024 ambulatory LESA SOLER Facility:[facility] Start: 09-03-2024 End: 09-03-2024 Patient encounter procedure Lesa Soler APRN.WATER ATTENDANT Work Phone: [facility] Comment on above: Type 2 diabetes kamlesh itus without complication, without long- term current use of insulin (HCC) (Primary Dx); Chronic diarrhea; Early satiety; Chronic nausea Start: 08-28-2024 End: 08-28-2024 ambulatory MARIO MONIQUE Facility:[facility] Start: 08-28-2024 End: 08-28-2024 Patient encounter procedure Mario Monique MD Work Phone: OB/Gynecology Comment on above: Encounter for gyneco logical examination (general) (routine) without abnormal findings (Primary Dx); Screening for malignant neoplasm of cervix; PCOS (polycystic ovarian syndrome); Primary female infertility Start: 08-28-2024 End: 08-28-2024 Patient encounter status Mario Monique MD Work Phone: [facility] Work Phone: Start: 07-15-2024 End: 07-15-2024 Emergency department patient visit No Primary Care Physician Facility:[facility] Start: 03-28-2023 End: 03-30-2023 Emergency department patient visit [facility] Work Phone: Start: 10-04-2017 End: 10-04-2017 Ambulatory [facility] Procedures Date Procedure Procedure Detail Performing Clinician Start: 03-30-2025 Estimated creatinine clearance Lesa Trill [employer] Work Phone: Start: 03-30-2025 Urnls dip stick/tabl et reagent auto microscopy Lesa Trill [employer] Work Phone: Start: 03-14-2025 Estimated creatinine clearance Lesa Trill [employer] Work Phone: Start: 02-06-2025 Methadone measuremen t, urine Lesa Trill [employer] Work Phone: Start: 02-06-2025 Estimated creatinine clearance Lesa Trill [employer] Work Phone: Start: 11-08-2024 Urine albumin quantitative Lesa Soler DIRECTOR OF EMERGENCY NURSING.WATER ATTENDANT Work Phone: Start: 11-03-2024 STREP A MOLECULAR (POC) Keely Reddy DIRECTOR OF EMERGENCY NURSING.WATER ATTENDANT Work Phone: Start: 03-29-2023 CT of abdomen and pe lvis without contrast Start: 03-28-2023 SARS-CoV-2 & FLU Ant igen (Rapid) Start: 02-28-2017 End: 02-28-2017 Dietary management education, guidance, and counseling Collette Curiel MD Start: 02-28-2017 End: 02-28-2017 Documentation of current medications Collette Curiel MD Plan of Treatment Date Care Activity Detail Author Start: 08-28-2029 Screening for malignant neoplasm of cervix Cervical Cancer Screening [facility] Start: 11-08-2025 Annual PCP Team Chronic Disease Visit Annual PCP Team Chronic Disease Visit [facility] Start: 11-08-2025 Hepatitis B screening Urine Albumin:Creatinine Ratio [facility] Start: 11-08-2025 Pneumococcal vaccination Pneumococcal Vaccine (1 of 2 - PCV) [facility] Comment on above: Postponed from 02/06/2012 (Declined at t his time) Start: 09-11-2025 Hepatitis B surface antibody level LDL Cholesterol [facility] Start: 09-03-2025 Annual PCP Team Chronic Disease Visit Annual PCP Team Chronic Disease Visit [facility] Start: 09-03-2025 Anxiety Screening Anxiety Screening [facility] Comment on above: Postponed from 2011 (Declined at t his time) Start: 09-03-2025 Covid-19 Vaccine ( season) Covid-19 Vaccine ( season) [facility] Comment on above: Postponed from 06/02/2024 (Declined at t his time) Start: 09-03-2025 Urine microalbumin profile DTaP,Tdap,Td Vaccine (1 - Tdap) [facility] Comment on above: Postponed from 02/06/2012 (Declined at t his time) Start: 08-29-2025 End: 08-29-2025 Patient encounter procedure 08/29/2025 8:45 AM EST Office Visit OB/Gynecology [address] [place] [address] [place] [address] [place], [place] [id number] annual OB/Gynecology Comment on above: annual Start: 06-02-2025 Influenza vaccination [facility] Start: 04-02-2025 End: 04-02-2025 ambulatory 04/02/2025 9:00 AM EDT Results Only [facility] [address] [place] [address] [facility] Start: 03-31-2025 Influenza vaccination Influenza Vaccine (#1) [facility] Comment on above: Postponed from 06/02/2024 (Declined at t his time) Start: 03-30-2025 [facility] Start: 03-30-2025 [facility] Start: 03-21-2025 End: 10-17-2025 CBC panel - Blood by Automated count COMPLETE BLOOD COUNT Lab Routine Dyslipidemia Expected: 03/21/2025, Expires: 10/17/2025 [facility] Work Phone: Comment on above: Expected: 03/21/2025, Expires: Start: 03-21-2025 End: 10-17-2025 Comprehensive metabolic 2000 panel - Serum or Plasma COMPREHENSIVE METABOLIC PANEL Lab Routine Dyslipidemia Expected: 03/21/2025, Expires: 10/17/2025 [facility] Comment on above: Expected: 03/21/2025, Expires: Start: 03-21-2025 End: 06-20-2025 Lipid 1996 panel - Serum or Plasma LIPID PANEL, FASTING Lab Routine Dyslipidemia Expected: 03/21/2025, Expires: 06/20/2025 [facility] Comment on above: Expected: 03/21/2025, Expires: Start: 03-14-2025 [facility] Start: 03-12-2025 Hemoglobin A1c measurement HbA1C [facility] Start: 02-06-2025 [facility] Start: 11-18-2024 End: 02-17-2025 25-hydroxyvitamin D3 [Mass/volume] in Serum or Plasma VITAMIN D 25 HYDROXY Lab Routine Procreative management Expected: 11/18/2024, Expires: 02/17/2025 [facility] Comment on above: Expected: 11/18/2024, Expires: Start: 11-18-2024 End: 02-17-2025 ANTI MULLERIAN HORMONE ANTI MULLERIAN HORMONE Lab Routine Encounter for fertility testing Expected: 11/18/2024, Expires: 02/17/2025 [facility] Comment on above: Expected: 11/18/2024, Expires: Start: 11-18-2024 End: 02-17-2025 CBC panel - Blood by Automated count COMPLETE BLOOD COUNT Lab Routine PCOS (polycystic ovarian syndrome) Irregular bleeding Expected: 11/18/2024, Expires: 02/17/2025 [facility] Comment on above: Expected: 11/18/2024, Expires: Start: 11-18-2024 End: 02-17-2025 Chlamydia trachomatis+Neisseria gonorrhoeae DNA [Presence] in Unspecified specimen by MURALI with probe detection GONORRHEA/CHLAMYDIA NAAT Lab Routine Screen for STD (sexually transmitted disease) Expected: 11/18/2024, Expires: 02/17/2025 [facility] Comment on above: Expected: 11/18/2024, Expires: Start: 11-18-2024 End: 02-17-2025 Choriogonadotropin.bet a subunit [Units/volume] in Serum or Plasma HCG QUANTITATIVE Lab Routine PCOS (polycystic ovarian syndrome) Expected: 11/18/2024, Expires: 02/17/2025 [facility] Comment on above: Expected: 11/18/2024, Expires: Start: 11-18-2024 End: 02-17-2025 DHEA-S BLD DHEA-S BLD Lab Routine Encounter for fertility testing Expected: 11/18/2024, Expires: 02/17/2025 [facility] Comment on above: Expected: 11/18/2024, Expires: Start: 11-18-2024 End: 02-17-2025 Estradiol (E2) [Mass/volume] in Serum or Plasma ESTRADIOL-17B BLD Lab Routine Encounter for fertility testing Expected: 11/18/2024, Expires: 02/17/2025 [facility] Comment on above: Expected: 11/18/2024, Expires: Start: 11-18-2024 End: 02-17-2025 Hemoglobin A1c in Blood HEMOGLOBIN A1C Lab Routine Procreative management Expected: 11/18/2024, Expires: 02/17/2025 [facility] Comment on above: Expected: 11/18/2024, Expires: Start: 11-18-2024 End: 02-17-2025 Hepatitis B virus core Ab [Presence] in Serum HEPATITIS B CORE ANTIBODY TOTAL Lab Routine Screening for STD (sexually transmitted disease) Expected: 11/18/2024, Expires: 02/17/2025 [facility] Comment on above: Expected: 11/18/2024, Expires: Start: 11-18-2024 End: 02-17-2025 Hepatitis B virus surface Ag [Presence] in Serum HEPATITIS B SURFACE ANTIGEN Lab Routine Screening examination for STD (sexually transmitted disease) Expected: 11/18/2024, Expires: 02/17/2025 [facility] Comment on above: Expected: 11/18/2024, Expires: Start: 11-18-2024 End: 02-17-2025 Hepatitis C virus Ab [Presence] in Serum HEPATITIS C ANTIBODY IA WITH CONFIRMATION Lab Routine Screening examination for STD (sexually transmitted disease) Expected: 11/18/2024, Expires: 02/17/2025 [facility] Comment on above: Expected: 11/18/2024, Expires: Start: 11-18-2024 End: 02-17-2025 HIV 1+2 Ab [Presence] in Serum or Plasma by Immunoassay HIV 1/2 COMBO WITH REFLEX TO DIFFERENTIATION Lab Routine Screening examination for STD (sexually transmitted disease) Expected: 11/18/2024, Expires: 02/17/2025 [facility] Comment on above: Expected: 11/18/2024, Expires: Start: 11-18-2024 End: 02-17-2025 Progesterone [Mass/volume] in Serum or Plasma PROGESTERONE Lab Routine Encounter for fertility testing Expected: 11/18/2024, Expires: 02/17/2025 [facility] Comment on above: Expected: 11/18/2024, Expires: Start: 11-18-2024 End: 02-17-2025 Prolactin [Mass/volume] in Serum or Plasma PROLACTIN Lab Routine Encounter for fertility testing Expected: 11/18/2024, Expires: 02/17/2025 [facility] Comment on above: Expected: 11/18/2024, Expires: Start: 11-18-2024 End: 02-17-2025 RUBELLA IGG ANTIBODY RUBELLA IGG ANTIBODY Lab Routine Procreative management Expected: 11/18/2024, Expires: 02/17/2025 [facility] Comment on above: Expected: 11/18/2024, Expires: Start: 11-18-2024 End: 02-17-2025 SYPHILIS TREPONEMAL W/REFLEX SYPHILIS TREPONEMAL W/REFLEX Lab Routine Screening examination for STD (sexually transmitted disease) Expected: 11/18/2024, Expires: 02/17/2025 [facility] Comment on above: Expected: 11/18/2024, Expires: Start: 11-18-2024 End: 02-17-2025 Testosterone [Mass/volume] in Serum or Plasma TESTOSTERONE, TOTAL BY IMMUNOASSAY (ADULT MALES, OR INDIVIDUALS ON TESTOSTERONE THERAPY) Lab Routine Encounter for fertility testing Expected: 11/18/2024, Expires: 02/17/2025 [facility] Comment on above: Expected: 11/18/2024, Expires: Start: 11-18-2024 End: 02-17-2025 Thyrotropin [Units/volume] in Serum or Plasma THYROID STIMULATING HORMONE Lab Routine Encounter for fertility testing Expected: 11/18/2024, Expires: 02/17/2025 [facility] Comment on above: Expected: 11/18/2024, Expires: Start: 11-18-2024 End: 02-17-2025 TYPE + SCREEN TYPE + SCREEN Blood Bank Routine Procreative management Expected: 11/18/2024, Expires: 02/17/2025 [facility] Work Phone: Comment on above: Expected: 11/18/2024, Expires: Start: 11-18-2024 End: 11-18-2025 US Uterus and Fallopian tubes W saline IU SONOHYSTEROGRAPHY (SIS) US [facility] Anc Imaging Routine PCOS (polycystic ovarian syndrome) Encounter for fertility testing Irregular bleeding Expected: 11/18/2024, Expires: 11/18/2025 [facility] Comment on above: Expected: 11/18/2024, Expires: Start: 11-18-2024 End: 02-17-2025 VARICELLA ZOSTER IGG VARICELLA ZOSTER IGG Lab Routine Procreative management Expected: 11/18/2024, Expires: 02/17/2025 [facility] Comment on above: Expected: 11/18/2024, Expires: Start: 11-18-2024 End: 11-18-2024 Patient encounter procedure 11/18/2024 1:00 PM EST Office Visit [facility] [address] [place], [place] [id number] Gema Small PA-C [address] [place] [address] PCOS (polycystic ovarian syndrome) [E28.2] [facility] Comment on above: PCOS (polycystic ovarian syndrome) [E28. 2] Start: 11-08-2024 Depression Screening Depression Screening [facility] Comment on above: Postponed from 2011 (Declined at t his time) Start: 11-08-2024 End: 11-08-2024 Patient encounter procedure 11/08/2024 1:40 PM EST Office Visit [facility] [address] [place] [address] Lesa Soler, DIRECTOR OF EMERGENCY NURSING.WATER ATTENDANT [address] [place] [address] 6-8 WK F/U DM [facility] Comment on above: 6-8 WK F/U DM Start: 10-30-2024 End: 10-30-2024 Follow-up encounter 10/30/2024 8:00 AM EST Education Nutrition Therapy [address] [address] [address], [address] [place] [address] follow up Nutrition Therapy Comment on above: follow up Start: 10-22-2024 End: 10-22-2024 Patient encounter procedure 10/22/2024 1:00 PM EST Office Visit [address] [address] Lesa Soler, DIRECTOR OF EMERGENCY NURSING.WATER ATTENDANT [address] [place] [address] 6-8 WK F/U DM [facility] Comment on above: 6-8 WK F/U DM Start: 10-22-2024 End: 10-22-2024 Follow-up encounter 10/22/2024 8:00 AM EST [facility] [address] [id number] Staci Givens, RD [address] [place] [address] follow up Nutrition Therapy Comment on above: follow up Start: 09-03-2024 End: 09-03-2024 Patient encounter procedure 09/03/2024 1:20 PM EST Office Visit [address] [place] [address] Lesa Soler APRN.WATER ATTENDANT [address] [place] [address] WebAppointment Request #[id number] [facility] Comment on above: WebAppointment Request #[id number] Start: 06-02-2024 Covid-19 Vaccine ( season) Covid-19 Vaccine ( season) [facility] Start: 06-02-2024 Influenza vaccination Influenza Vaccine (#1) [facility] Start: 03-28-2023 Referral to service [facility] Start: 03-28-2023 End: 03-28-2023 Suicide precautions [facility] Start: 03-07-2017 End: 03-07-2017 Appointment Appointment [facility] [employer] Work Phone: Start: 02-28-2017 End: 02-28-2017 Appointment Appointment [facility] [employer] Work Phone: Start: 02-28-2017 End: 03-01-2017 Follow Up Appt Other Follow Up Appt Other [facility] [employer] Work Phone: Start: 02-28-2017 End: 02-28-2017 Uppr gi endoscopy, diagnosis Upper gastrointestinal endoscopy [facility] [employer] Work Phone: Start: 2014 Screening for malignant neoplasm of cervix Cervical Cancer Screening [facility] Start: 02-06-2012 Hepatitis B Vaccine (1 of 3 - 19+ 3-dose series) Hepatitis B Vaccine (1 of 3 - 19+ 3-dose series) [facility] Start: 02-06-2012 Pneumococcal vaccination Pneumococcal Vaccine (1 of 2 - PCV) [facility] Start: 02-06-2012 Urine microalbumin profile DTaP,Tdap,Td Vaccine (1 - Tdap) [facility] Start: 2011 Anxiety Screening Anxiety Screening [facility] Start: 2011 Depression Screening Depression Screening [facility] Start: 2011 Hepatitis C screening Hepatitis C Screening [facility] Start: 2011 HIV screening HIV Screening [facility] Start: 2003 Diabetic foot examination Diabetic Foot Exam [facility] Start: 2003 Glaucoma screening Dilated Retinal Exam [facility] Start: 2003 Hepatitis B screening Urine Albumin:Creatinine Ratio [facility] Start: 1999 Pneumococcal vaccination Pneumococcal Vaccine (1 of 2 - PCV) [facility] COVID & INFLUENZA A/ B & RSV PCR, ROUTINE COVID & INFLUENZA A/B & RSV PCR, ROUTINE Microbiology Routine URI, acute Ordered: 11/03/2024 [facility] Work Phone: Comment on above: Ordered: 11/03/2024 PAP TEST PAP TEST Lab Rou vi Screening for malignant neoplasm of cervix 08/28/2024 10:22 AM EST [facility] Work Phone: Patient Education [facility] Work Phone: Patient referral [facility] Work Phone: End: 12-16-2025 RF Uterus and Fallopian tubes Views W contrast IU XR HYSTEROSALPINGOGRAM Radiology Routine Encounter for fertility testing H/O unilateral salpingectomy 1 Occurrences starting 11/18/2024 until 12/16/2025 [facility] Comment on above: 1 Occurrences starting 11/18/2024 until 12/16/2025 Payers Date Payer Category Payer Self-pay [id number] 2024 Medicaid [id number] 2024 Private Health Insurance HUMANA HU[employer]NA MEDICAID [facility] [id number] 2024-Present [address] [address] [place] [address] Medicaid [id number] 2024 Private Health Insurance [id number] 2016 Unknown [id number] 1993 Unknown [id number] Unknown [id number] Unknown [facility] [id number] Unknown [id number] Unknown [id number] Unknown [id number] Unknown [id number] Unknown [id number] Unknown [id number] Social History Date Type Detail Facility Start: 03-28-2023 Tobacco smoking status [facility] Unknown if ever smoked [facility] Start: 01-09-2019 [facility] Start: 1995 Sex Assigned At Female [facility] Start: 08-28-2024 End: 02-06-2025 Tobacco smoking status [facility] Never smoked tobacco [facility] Start: 08-28-2024 Tobacco use and exposure Smokeless tobacco non-user [facility] Start: 08-28-2024 End: 11-27-2024 Alcoholic beverage intake Ex-drinker (finding) [facility] Start: 08-28-2024 End: 09-11-2024 History of Social function [facility] Start: 08-28-2024 End: 09-11-2024 Tobacco use panel [facility] National Score (1-100), lower number is lower risk 66 [facility] Start: 1995 Sex assigned at Not on file C [facility] Start: 03-14-2025 End: 03-30-2025 Tobacco smoking status NHIS Smokes tobacco daily (finding) [facility] NEGATED: Highlighted row [facility] Functional Status Date Assessment Result Facility 11-08-2014 Are you deaf, or do you have serious difficulty hearing No 11/08/2014 11:42 AM Charlene Rodas MA No [facility] 11-08-2014 Are you blind, or do you have serious difficulty seeing, even when wearing glasses No 11/08/2014 11:42 AM Charlene Rodas MA No [facility] 11-08-2014 Do you have serious difficulty walking or climbing stairs No 11/08/2014 11:42 AM Charlene Rodas MA No [facility] 11-08-2014 Do you have difficul ty dressing or bathing No 11/08/2014 11:42 AM Charlene Rodas MA [facility] 11-08-2014 Because of a physica l, mental, or emotional condition, do you have difficulty doing errands alone such as visiting a physician's office or shopping No 11/08/2014 11:42 AM Charlene Rodas MA [facility] Mental Status Date Assessment Result Facility 11-08-2014 Because of a physica l, mental, or emotional condition, do you have serious difficulty concentrating, remembering, or making decisions No 11/08/2014 11:42 AM Charlene Rodas MA [facility] Clinical Notes 03-28-2023 to 04-01-2025 Naomie Mcguire LPN - 04/01/2025 3:05 PM EDTTelephone Encounter - Myra Duran MA - 03/21/2025 11:06 AM EDTTelephone Encounter - Myra Duran MA - 03/21/2025 11:06 AM EDT Note Date & Type Note Facility 04-01-2025 Note HNO ID: [id number] Author: NAOMIE MCGUIRE LPN Service: ? Author Type: LICENSED NURSE Type: Progress Notes Filed: 04/01/2025 15:10 Note Text: ED Follow-Up Note Provider Action / FYI: Call completed by: SHAISTA Patient seen in ED: Out of Network ED Contact made with Patient: No, left message. Naomie Mcguire LPN April 01, 2025 3:10 PM [facility] 04-01-2025 History of Presen t illness Narrative ED Follow-Up Note Provider Action / FYI: Call completed by: SHAISTA Patient seen in ED: Out of Network ED Contact made with Patient: No, left message. Naomie Mcguire LPN April 01, 2025 3:10 PM documented in this encounter [facility] 04-01-2025 Note Patient Outreach (AG FAMPLE) JOSHUA CHOUDHARY ([id number]) 1995 F Date Time Provider Department 04/01/25 [...] Date Reviewed: 11/27/2024 Reviewed by: Lesa Soler APRN.WATER ATTENDANT - Fully Assessed Reason for Visit: ER [...] Encounter Status:Closed by NAOMIE MCGUIRE on 04/01/25 [facility] 03-21-2025 Telephone encount er Note Left message informing patient, phone number to reach the office was left for any questions or concerns. Myra Duran MA [facility] 03-21-2025 Miscellaneous Notes Formattin g of this note might be different from the original. Left message informing patient, phone number to reach the office was left for any questions or concerns. Myra Duran MA Addended by: LESA SOLER on: 03/21/2025 10:13 AM Modules accepted: Orders Thank you. Please see kellee. Lesa Soler APRN.CNP Recheck sravanthi Duran MA documented in this encounter [facility] 03-21-2025 Note Addended by: LESA SOLER on: 03/21/2025 10:13 AM Modules accepted: Orders [facility] 03-21-2025 Telephone encount er Note Thank you. Please see orders. Lesa Soler APRN.WATER ATTENDANT [facility] 03-21-2025 Telephone encount er Note Nitza Duran MA [facility] 03-18-2025 Note HNO ID: [id number] Author: NAOMIE MCGUIRE LPN Service: ? Author Type: LICENSED NURSE Type: Progress Notes Filed: 03/18/2025 10:35 Note Text: ED Follow-Up Note Provider Action / FYI: Call completed by: SHAISTA Patient seen in ED: Out of Network ED Contact made with Patient: No, left message. Naomie Mcguire LPN March 18, 2025 10:35 AM [facility] 03-18-2025 History of Presen t illness Narrative ED Follow-Up Note Provider Action / FYI: Call completed by: SHAISTA Patient seen in ED: Out of Network ED Contact made with Patient: No, left message. Naomie Mcguire LPN March 18, 2025 10:35 AM documented in this encounter [facility] 03-18-2025 Note Patient Outreach (YULY YAÑEZ) JOSHUA CHOUDHARY ([id number]) 1995 F Date Time Provider Department 03/18/25 [...] Date Reviewed: 11/27/2024 Reviewed by: Lesa Soler APRN.WATER ATTENDANT - Fully Assessed Reason for Visit: ED [...] Encounter Status:Closed by NAOMIE MCGUIRE on 03/18/25 [facility] 02-14-2025 Note HNO ID: [id number] Author: NAOMIE MCGUIRE LPN Service: ? Author Type: LICENSED NURSE Type: Progress Notes Filed: 02/14/2025 11:01 Note Text: ED Follow-Up Note Provider Action / FYI: Call completed by: SHAISTA Patient seen in ED: Out of Network ED Contact made with Patient: No, left message. Naomie Mcguire LPN February 14, 2025 11:00 AM [facility] 02-14-2025 History of Presen t illness Narrative ED Follow-Up Note Provider Action / FYI: Call completed by: SHAISTA Patient seen in ED: Out of Network ED Contact made with Patient: No, left message. Naomie Mcguire LPN February 14, 2025 11:00 AM documented in this encounter [facility] 02-14-2025 Note Patient Outreach (AG FAMPLE) JOSHUA CHOUDHARY ([id number]) 1995 F Date Time Provider Department 02/14/25 [...] Date Reviewed: 11/27/2024 Reviewed by: Lesa Soler APRN.WATER ATTENDANT - Fully Assessed Reason for Visit: ED Follow-up [821] Cmt: [facility] 02/06/2025 and [facility] ED 02/08/2025 Prescriptions as of 02/14/2025 [...] Encounter Status:Closed by NAOMIE MCGUIRE on 02/14/25 [facility] 02-06-2025 Discharge summary Note Date/Time February 06, 2025 1:47pm [facility] Medical Records Department [address] [facility] [place] [address] Emergency Department Summary 02/06/25 MR#: [id number] Acct: [id number] Name: JOSHUA CHOUDHARY Rep #:[id number] : 1995 30 From: Juan Tapia MD [...] states she wants her panic to stop. [facility] Medical History Anxiety disorder Cannabis use [...] 0 current occupational status: employed current occupation: [employer] Smoking Status: Never smoker Smokeless [...] 82.8 H Lymph % (Auto) 13.9 L Calvert % (Auto) 2.3 Eos % (Auto) 0.0 [...] with new or worsening symptoms. Print Language: Kuwaiti Disposition Disposition: Home, Self Care What to do if you have Problems For any increased pain, shortness of breath, bleeding, nausea or vomiting, chestpain, or any unexpected problems, contact your Primary Care Provider. Call [facility] ([phone]) or report to the closest Emergency Room. Call 911 if necessary. 02/06/25 1347 <Electronically signed by Juan Tapia MD> Cosigner Signature (if applicable): CC: FREDY Soler ~ Signed [facility] Work Phone: 1(720) 275-248405-08-2025 Discharge summary [facility] Medical Records Department [address] [place] [address] Emergency Department Summary 02/06/25 MR#: [id number] Acct: [id number] Name: JOSHUA CHOUDHARY Rep #:[id number] : 1995 30 From: Juan Tapia MD [...] states she wants her panic to stop. [facility] Medical History Anxiety disorder Cannabis use [...] 0 current occupational status: employed current occupation: [employer] Smoking Status: Never smoker Smokeless [...] 82.8 H Lymph % (Auto) 13.9 L [place] % (Auto) 2.3 Eos % (Auto) 0.0 [...] Lesa Soler NP Referrals: Lesa Soler NP, TRANSPORTATION ESCORT-C [Primary Care Provider] - 3-5 Days if not improving Activity Restrictions/Additional Instructions: Follow-up with your psychiatrist as well. Return to the emergency department with new or worsening symptoms. Print Language: Kuwaiti Disposition Disposition: Home, Self Care What to do if you have Problems For any increased pain, shortness of breath, bleeding, nausea or vomiting, chestpain, or any unexpected problems, contact your Primary Care Provider. Call [facility] ([phone]) or report tothe closest Emergency Room. Call 911 if necessary. 02/06/25 1347 Cosigner Signature (if applicable): CC: FREDY Soler ~ Signed [facility]02-17-2025 NoteHNO ID: [id number] Author: GEMA SMALL PA-C Service: ? Author Type: Physician Forester Aide Type: Progress Notes Filed: 11/18/2024 14:42 Note [...] visit. Either the patient or their legal medical collections representative has been informed of the risks [...] requesting physician via US mail. Mario Monique [id number] [facility][1] [id number] CHIEF COMPLAINT: Procreative management and counseling HISTORY OF PRESENT ILLNESS Joshua Choudhary is a 29 year old female for 5-6 years.Together for 10. Little protection for 10 years, actively TTC for 2-3 years. Not sure if she wants a child at this time. Would like to conceive in 2 years. 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 Mainly wishes to investigate the PCOS [...] methods. Would like to have one child. RECORDS MANAGER HISTORY: Menarche: 12 Cycle Length: 30-60 days [...] 07/03/2018 EGD LAPAROSCOPY SURG (more content not included)...[facility] 11-18-2024 History of Present illness Narrative* Gema [...] requesting physician via US mail. Mario Monique [id number] [facility][1] [id number] CHIEF COMPLAINT: Procreative management and counseling HISTORY OF PRESENT ILLNESS Joshua Choudhary is a 29 year old female for 5-6 years.Together for 10. Little protection for 10 years, actively TTC for 2-3 years. Not sure if she wants a child at this time. Would like to conceive in 2 years. 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 Mainly wishes to investigate the PCOS [...] methods. Would like to have one child. RECORDS MANAGER HISTORY: Menarche: 12 Cycle Length: 30-60 days [...] coordination (not separately reported). [facility] Telephone encounter Note * Telephone Encounter - Gloria Evans MA - 11/12/2024 10:27 AM EST Lm on pt. Vm with results. Gloria Evans MA [facility]02-11-2025 Telephone encounter Note* Telephone Encounter - Gloria Evans MA - 11/12/2024 10:27 AM EST ----- Message from Lesa Soler APRN.WATER ATTENDANT sent at 11/12/2024 8:57 AM EST ----- Please notify patient results are normal. Thank you. Lesa Soler APRN.WATER ATTENDANT [facility]02-11-2025 Miscellaneous Notes* Telephone Encounter - Gloria Evans MA - 11/12/2024 10:27 AM EST Lm on pt. Vm with results. Gloria Evans MA * Telephone Encounter - Gloria Evans MA - 11/12/2024 10:27 AM EST ----- Message from Lesa Soler APRN.WATER ATTENDANT sent at 11/12/2024 8:57 AM EST ----- Please notify patient results are normal. Thank you. Lesa Soler APRN.WATER ATTENDANT documented in this encounter[facility]25 Telephone encounter Note * Telephone Encounter - Gloria Evans MA - 11/08/2024 2:15 PM EST Per pt. She is requesting number to apex sent to my chart. Gloria Evans MA [facility]02-07-2025 Miscellaneous Notes* Telephone Encounter - Gloria Evans MA - 11/08/2024 2:15 PM EST Per pt. She is requesting number to [place] sent to my chart. Gloria Evans MA documented in this encounterSelect [facility]-2025 NoteHNO ID: [id number] Author: LESA SOLER APRN.WATER ATTENDANT Service: ? Author Type: Nurse Practitioner Type: [...] changed her diet a lot Saw the patch washer Made a big difference Was able to develop hunger again and more frequently Still losing weight No more diarrhea Increased movement Going to college - [employer] Walking a lot more Doing EMDR therapy [...] HENT: Head: Normocephalic and atraumatic. Mouth/Throat: Lips: [place]. Eyes: General: Lids are normal. Extraocular Movements: [...] 30.5 - 36.0 g/d (more content not included)...[facility] 11-08-2024 History of Present illness Narrative* Lesa Soler APRN.WATER ATTENDANT - 11/08/2024 1:41 PM EST Subjective Joshua Choudhary is a 29 year old female here today for diabetes follow-up. I reviewed past medical, surgical, social, and family histories today and updated chart. Allergies, chronic medications, and supplements were also reviewed. HPI Patient has type 2 diabetes, well controlled with diet She has changed her diet a lot Saw the patch washer Made a big difference Was able to develop hunger again and more frequently Still losing weight No more diarrhea Increased movement Going to college - [employer] Walking a lot more Doing EMDR therapy [...] HENT: Head: Normocephalic and atraumatic. Mouth/Throat: Lips: [place]. Eyes: General: Lids are normal. Extraocular Movements: [...] dermatology - CONSULT TO DERMATOLOGY Lesa Soler APRN.WATER ATTENDANT documented in this encounter[facility] History of Present illness Narrative* Keely Reddy [...] history is provided by the patient. No english language arts teacher was used. URI She complains of cough. [...] A/B & RSV PCR, ROUTINE Keely Reddy APRN.WATER ATTENDANT documented in this encounterSelect [facility]-02-2025 NoteHNO ID: [id number] Author: KEELY REDDY APRN.WATER ATTENDANT Service: ? Author Type: Nurse Practitioner Type: [...] history is provided by the patient. No english language arts teacher was used. URI She complains of cough. [...] is no distension. Palpatio (more content not included)...[facility]01-29-2025 Instructions* Patient Instructions* Staci Givens RD - 10/30/2024 8:21 AM EST Continuous previous recommendations AND Ensure protein at breakfast Try sliced chicken breast instead of wings, don't eat chicken skin Add in regular exercise, add 30 min 4 days per week documented in this encounterSelect [facility]01-29-2025 NoteHNO ID: [id number] Author: STACI GIVENS RD Service: ? Author Type: Registered Dietitian Type: Progress Notes Filed: 10/30/2024 08:26 Note Text: [facility] Nutrition Therapy: Virtual Consult - Re-assessment I have communicated my name and active licensure. The patient?s identity and physical location were verified at the time of this visit. Either the patient or their legal medical collections representative has been informed of the risks [...] Choudhary DATE: October 30, 2024 TIME: 8:00 [facility]01-29-2025 History of Present illness Narrative* Staci Givens RD - 10/30/2024 8:01 AM EST The [facility] Nutrition Therapy: Virtual Consult - Re-assessment I have communicated my name and active licensure. The patient s identity and physical location wereverified at the time of this visit. Either the patient or their legal medical collections representative has been informed of the risks [...] 2024 TIME: 8:00 AM documented in this encounterSelect [facility]01-29-2025 NoteEducation (NUTRTOREY) JOSÉ MIGUEL CHOUDHARYILY Lucas ([id number]) 1995 F Date Time Provider Department 10/30/24 [...] daily. Encounter Status:Closed by STACI GIVENS on 10/30/24[facility]12-19-2024 Telephone encounter Note* Telephone Encounter - Lesa [...] Patient may choose to take fish oil [id number]. Recheck cholesterol in 6 months. Thank you Lesa Soler APRN.WATER ATTENDANT [facility]12-19-2024 Miscellaneous Notes* Telephone Encounter - Lesa Soler [...] Patient may choose to take fish oil [id number]. Recheck cholesterol in 6 months. Thank you Lesa Soler APRN.WATER ATTENDANT documented in this encounterSelect [facility]12-11-2024 Instructions* Patient Instructions* Staci Givens RD - [...] such as Crystal Light , flavored water, Silri7C , Minute Maid light lemonade, Propel ) 5. Increase exercise to at least 30 min cardio 5 days per week or as tolerated; add in weight resistance exercise, preferably 2-3 days per week Consider a B complex and a vit D supplement documented in this encounterSelect [facility]12-11-2024 NoteHNO ID: [id number] Author: STACI GIVENS RD Service: ? Author Type: Registered Dietitian Type: Progress Notes Filed: 09/11/2024 14:22 Note Text: [facility] Nutrition Therapy: Virtual Consult - Initial Assessment I have communicated my name and active licensure. The patient?s identity and physical location were verified at the time of this visit. Either the patient or their legal medical collections representative has been informed of the risks [...] only such as Crystal Light?, flavored water, Bwyaq0T?, Minute Maid? light lemonade, Propel?) 5. Increase [...] Education Materials Provided: Healthy Lunch/Dinner Plate and 3825-7289 Calorie Partial Liquid Protein Diet READINESS TO [...] Choudhary DATE: September 11, 2024 TIME: 1:46 [facility]12-11-2024 History of Present illness Narrative* Staci Givens RD - 09/11/2024 1:43 PM EST The [facility] Nutrition Therapy: Virtual Consult - Initial Assessment I have communicated my name and active licensure. The patient s identity and physical location wereverified at the time of this visit. Either the patient or their legal medical collections representative has been informed of the risks [...] such as Crystal Light , flavored water, Jxxmv6B , Min[place]id light lemonade, Propel ) [...] Education Materials Provided: Healthy Lunch/Dinner Plate and 5201-0069 Calorie Partial Liquid Protein Diet READINESS TO [...] 2024 TIME: 1:46 PM documented in this encounterSelect [facility]12-03-2024 NoteHNO ID: [id number] Author: LESA SOLER APRN.WATER ATTENDANT Service: ? Author Type: Nurse Practitioner Type: Progress Notes Filed: 09/22/2024 00:58 Note Text: Subjective Joshua Choudhary is a 29 year old female here today for establish care. I reviewed past medical, surgical, social, and family histories today and updated chart. Allergies, chronic medications, and supplements were also reviewed. HPI Moved back to [place] about 1 year ago Needs PCP Diagnosed [...] Insatiable hunger for sugar, craves candy Saw RECORDS MANAGER last week - Dr Monique Pap test completed Looking in to fertility treatment for 6 years - tried for good 2 years, still not using BC Right fallopian tube removed age 17 Depression - she is seeing counselor and psychiatrist, Dr [place] [id number] Counselor Joshua Zazueta at [facility], will be starting EDMR Hx childhood trauma CPSD responses Having official testing for ADHD Panic disorder Has been focusing on mental health this whole past year Hasn't been able to work this past year She was hospitalized - [facility] x 1 week Just started new [...] Objective BP 108/62 Pu (more content not included)...[facility] 09-03-2024 History of Present illness Narrative* Lesa Soler, TRINI.WATER ATTENDANT - 09/03/2024 1:41 PM EST Subjective Joshua Choudhary is a 29 year old female here today for establish care. I reviewed past medical, surgical, social, and family histories today and updated chart. Allergies, chronic medications, and supplements were also reviewed. HPI Moved back to [place] about 1 year ago Needs PCP Diagnosed [...] Insatiable hunger for sugar, craves candy Saw RECORDS MANAGER last week - Dr Monique Pap test completed Looking in to fertility treatment for 6 years - tried for good 2 years, still not using BC Right fallopian tube removed age 17 Depression - she is seeing counselor and psychiatrist, Dr Marybel Ortiz [address] Counselor Joshua Zazueta at [facility], will be starting EDMR Hx childhood trauma CPSD responses Having official testing for ADHD Panic disorder Has been focusing on mental health this whole past year Hasn't been able to work this past year She was hospitalized - [facility] x 1 week Just started new [...] HENT: Head: Normocephalic and atraumatic. Mouth/Throat: Lips: [place]. Eyes: General: Lids are normal. Extraocular Movements: [...] 787.02, ICD10: R11.0 - LIPASE Lesa Soler APRN.WATER ATTENDANT documented in this encounterSelect [facility]11-27-2024 NoteHNO ID: [id number] Author: MARIO MONIQUE MD Service: ? Author [...] skin retraction. Allergies and current medication updated:Yes Senior Statistician present EXAM: BP 108/71 Pulse 72 Ht 5' 6 (1.68m) Wt 208 lb (94.3kg) LMP 06/28/2024 BMI 33.59 kg/(m2). GENERAL: In no apparent distress HEENT: Normocephalic, BREAST: soft, non-tender, symmetric, no dominant mass, normal nipple-areolar complex, no lymphadenopathy, and no nipple discharge CHEST: Normal inspiratory effort ABDOMEN: soft, non-tender, and no masses PELVIC: external genitalia normal, normal Bartholin's glands, urethra, Chambers's glands, no vulvar lesions, no cervical lesions, [...] discussed with the Patient or Patient's Authorized Medical Screener. As applicable, any other physician, advance practice provider, medical student, or other health professional student that will be observing or involved in the sensitive examination for educational or training purposes was discussed with the Patient or Authorized Medical Screener. The Patient or Authorized Medical Screener has agreed to proceed with the sensitive examination. (Sensitive examination includes inspection and/or palpation of the breasts, pelvis, prostate and anorectal regions)[facility]11-[facility] History of Present illness Narrative* Mario Monique [...] skin retraction. Allergies and current medication updated:Yes Senior Statistician present EXAM: BP 108/71 Pulse 72 Ht 5' 6 (1.68m) Wt 208 lb (94.3kg) LMP 06/28/2024 BMI 33.59 kg/(m^2). GENERAL: In no apparent distress HEENT: Normocephalic, BREAST: soft, non-tender, symmetric, no dominant mass, normal nipple-areolar complex, no lymphadenopathy, and no nipple discharge CHEST: Normal inspiratory effort ABDOMEN: soft, non-tender, and no masses PELVIC: external genitalia normal, normal Bartholin's glands, urethra, Chambers's glands, no vulvar lesions, no cervical lesions, [...] discussed with the Patient or Patient's Authorized Medical Screener. Asapplicable, any other physician, advance practice provider, medical student, or other health professional student that will be observing or involved in the sensitive examination for educational or training purposes was discussed with the Patient or Authorized Medical Screener. The Patient or Authorized Medical Screener has agreed to proceed with the sensitive examination. (Sensitive examination includes inspection and/or palpation of the breasts, pelvis, prostate and anorectal regions) documented in this encounterSelect [facility]06-27-2023 Discharge summary Author Andres Loyola [facility] March 30, 2023 10:03am Note Date/Time March 28, 2023 11:0 1am [facility] Medical Records Department [address] [place] [address] Emergency Department Summary 03/28/23 MR#: [id number] Acct: [id number] Name: RESHMAROOSEVELTJOSHUA HERNANDEZ Rep #:[id number] : 1995 28 From: Ry Hernandez PCP: Care Physician,No Primary Status :REG ER Location: ED ADDENDUM by Dr. Andres Loyola DO on 03/30/23 at 1003 Patient accepted to [facility] under service Dr. Price. Awaiting [...] at 2307 [facility] shift, 1400. Patient is awaiting bed assignment at [facility]. There was concern because of leukocytosis. The tube builder at [facility] demanded a CAT scan of [...] my shift. [facility]. 03/29/23 230<Electronically signed by Christos Esparza MD> Cosigner Signature (if applicable): cc: No Primary Care Physician ~* Signed ADDENDUM by Dr. Andres Loyola DO on 03/29/23 at 1527 He received callback from psychiatric facility who requested a CT scan abdomen pelvis after discussing with her tube builder due to her leukocytosis. Also requested urinary [...] per nursing. She has been medically cleared. [place] slip was filled out by myself as requested by evaluating facility. Awaiting disposition. 03/29/23 1105<Electronically signed by Andres Pedroza> Cosigner Signature (if applicable): cc: No Primary Care Physician ~* Signed ADDENDUM by Dr. Ry James DO on 03/28/23 at 1640 EKG was ordered to assess for QT prolongation. On my independent interpretation, it shows a normal sinus rhythm with a rate of 63. AR interval was 162 ms. QRS interval was 90 ms. QTc interval was normal at 425 ms. [place] was normal. There are no acute ST [...] and vomiting due to the anxiety. PFSH [facility] Medical History PCOS (polycystic [...] 0 current occupational status: employed current occupation: [employer] Smoking Status: Never smoker Smokeless tobacco user: chewing tobacco alcohol intake: current alcohol intake frequency: holidays/special occasions only substance use type: marijuana seatbelt use: always do you feel safe at home: Yes additional social history: [employer] [facility] ED Constitutional Constitutional ED: Reports chills and [...] (Auto) 70.3 H Lymph % (Auto) 22.0 Calvert % (Auto) 4.3 Eos % (Auto) 1.8 [...] Color Urine Clarity Urine pH Ur Specific [place] Urine Protein Urine Glucose (UA) Urine Ketones [...] (Auto) Neut % (Auto) Lymph % (Auto) Calvert % (Auto) Eos % (Auto) Baso % (Auto) Absolute Neuts (auto) Absolute Lymphs (auto) Nucleated RBC % Sodium Potassium Chloride Carbon Dioxide Anion Gap BUN Creatinine Estim Creat Clear Calc Est GFR (MDRD) Af Amer Est GFR (MDRD) Non-Af BUN/Creatinine Ratio Glucose Calcium Serum , Qual NEGATIVE Urine Color Straw Urine Clarity Clear Urine pH 8.0 Ur Specific [place] 1.015 Urine Protein 30 H Urine Glucose [...] Ethyl Alcohol Management Discussion w/another healthcare provider: area field worker/Case management Treatment and Re-Evaluation Narrative: Patient [...] will likely need to be transferred to [facility]. Care of the patient will be [...] your Primary Care Provider. Call [facility] ([phone]) or report to the closest Emergency Room. Call 911 if necessary. 03/28/23 4833 <Electronically signed by Ry James DO> Cosigner Signature (if applicable): CC: No Primary Care Physician ~ Signed [facility] Work Phone: Evaluation noteNo assessment information available [facility] Work Phone: Evaluation note* Diagnosis Encounter for gynecological examination (general) (routine) without abnormal findings- Primary Screening for malignant neoplasm of cervix Screening for malignant neoplasm of the cervix PCOS (polycystic ovarian syndrome) Polycystic ovaries Primary female infertility Female infertility of unspecified origin documented [facility] this encounter [facility]* Diagnosis Dietary counseling- Primary Dietary surveillance and counseling Type 2 diabetes mellitus without complication, without long-term current use of insulin (HCC) PCOS (polycystic ovarian syndrome) Polycystic ovaries documented in this encounter [facility]* Diagnosis Type 2 diabetes mellitus without complication, without long-term current use of insulin (HCC)- Primary Chronic diarrhea Diarrhea Early satiety Chronic nausea Nausea alone [facility]* Diagnosis Type 2 diabetes mellitus without complication, without long-term current use of insulin (HCC)- Primary Dietary counseling Dietary surveillance and counseling PCOS (polycystic ovarian syndrome) Polycystic ovaries Obesity, Class I, BMI 30-34.9 Obesity, unspecified documented in this encounter [facility]* Diagnosis URI, acute- Primary Acute upper respiratory infections of unspecified site documented in this encounter [facility] note* Diagnosis Procreative management- Primary Unspecified procreative [...] to other organs documented in this encounter [facility] note* Diagnosis Type 2 diabetes mellitus without complication, without long-term current use of insulin (HCC)- Primary Dyslipidemia Other and unspecified hyperlipidemia Hirsutism documented in this encounter [facility] note* Diagnosis Dyslipidemia- Primary Other and unspecified hyperlipidemia [facility] Additional Instructions Follow-up with your psychiatrist as well. Return to the emergency department with new or worsening symptoms.[facility] Work Phone: Hospital Discharge instructions Additional Instructions test negative. Electrolytes normal. Continue oral fluids for hydration. Take medicines as prescribed. Follow-up with your doctor.[facility] Work Phone: Reason for referral (narrative)No reason for referral information availableWAccess Hospital [facility] Work Phone: Summary Purpose Family History No Family History Records Found Relationship Condition Age at Onset Recorded Date/T tegan mother Malignant neoplasm Unknown Advance Directives No Advanced Directives Records Found Advance Directive Response Recorded Date/ Time Advance Directives No March 20 14 11:23am Living Will No March 28, 2023 9:13am Power of Mine Production Engineer No March 28 9:13am Advance Directive Response Recorded Date/ Time Do you have a Healthcare Power of Mine Production Engineer? No February 06, 2025 9:45am Advance Directives No March 20 14 11:23am Advance Directive Response Recorded Date/ Time Do you have a Healthcare Power of Mine Production Engineer? No February 06, 2025 9:45am Do you have a Healthcare Power of Mine Production Engineer? No March 14, 2025 8:06pm Advance Directives No March 20 14 11:23am Advance Directive Response Recorded Date/ Time Do you have a Healthcare Power of Mine Production Engineer? No February 06, 2025 9:45am Do you have a Healthcare Power of Mine Production Engineer? No March 30, 2025 10:34am Do you have a Healthcare Power of Mine Production Engineer? No March 14, 2025 8:06pm Advance Directives No March 20 11:23am Advance Directive Response Recorded Date/ Time Do you have a Healthcare Power of Mine Production Engineer? No February 06, 2025 9:45am Do you have a Healthcare Power of Mine Production Engineer? No March 30, 2025 10:34am Do you have a Healthcare Power of Mine Production Engineer? No March 30, 2025 6:39pm Do you have a Healthcare Power of Mine Production Engineer? No March 14, 2025 8:06pm Advance Directives [...] infertility Procedures CONSULT TO INFERTILITY CLINIC OFFICE/OUTPATIENT [facility] 60 [place] [address] [place] [address] Referral ID Status Reason Start Date Expiration Date Visits Requested Visits Authorized [id number] Authorized PCP Requested Referral Auto-Generate d Referral 4 08/28/2025 1 1 Specialty Diagnoses / Procedures Referred By Contact Referred To Contact Gastroenterology / [facility] DEPARTMENT Diagnoses Chronic diarrhea Procedures CONSULT TO GASTROENTEROLOGY OFFICE/OUTPATIENT [facility] 60 MINUTES Lesa Soler, TRINI.WATER ATTENDANT [address] [place] [address] [facility] GASTROENTER[facility]Y [address] [place] [address] Referral ID Status Reason Start Date Expiration Date Visits Requested Visits Authorized [id number] Authorized PCP Requested Referral 09/03/2024 09/03/2025 1 1 Specialty Diagnoses / Procedures Referred By Contac t Referred To Contact Nutrition / [facility] [place] [facility] Diagnoses Type 2 diabetes mellitus without complication, without long-term current use of insulin (HCC) Procedures CONSULT TO NUTRITION THERAPY MEDICAL NUTRITION ASSMT&IVNTJ INDIV EACH 15 SD Lesa Soler APRN.WATER ATTENDANT [address] [place] [address] [facility] [address] [place] [address] Referral ID Status Reason Start Date Expiration Date Visits Requested Visits Authorized [id number] Authorized PCP Requested Referral 09/03/2024 09/03/2025 1 4 Additional Source Comments INFORMATION SOURCE (unrecogn ized section and content) DATE CREATED AUTHOR 03/27/2018 [facility] DATE CREATED AUTHOR AUTHOR'S ORGANIZ ATION 02/15/2025 [facility] nt DATE CREATED AUTHOR AUTHOR'S ORGANIZ ATION 03/30/2025 [facility] DATE CREATED AUTHOR AUTHOR'S ORGANIZ ATION 04/03/2025 [facility] DATE CREATED AUTHOR AUTHOR'S ORGANIZ ATION 04/04/2025 [facility] Care Teams (unrecognized sec tion and content) Team Status: Active Member Role Status Dates Dr. Ry Adler MD Family Provider Active No Primary Care Physician Primary Care Provider Active Team Status: Inactive Member Role Status Dates Dr. Ry James DO Emergency Provider Active No Primary Care Physician Primary Care Provider Active [place] Attendant Relationship Specialty Start Date End Date Ry Adler MD [address] [place] [id number] PCP - General Family Medicine 07/03/18 [place] Att[employer] Relationship Specialty Start Date End Date Lesa Soler APRN.WATER ATTENDANT [address] [place] [address] PCP - General Family Medicine 09/03/24 [place] Att[employer] Relationship Specialty Start Date End Date Lesa Soler DIRECTOR OF EMERGENCY NURSING.WATER ATTENDANT [address] [place] [address] PCP - General Family Medicine 09/03/24 [place] Att[employer] Relationship Specialty Start Date End Date Lesa Soler DIRECTOR OF EMERGENCY NURSING.WATER ATTENDANT [address] [place] [address] PCP - General Family Medicine 09/03/24 [place] Att[employer] Relationship Specialty Start Date End Date Lesa Soler, DIRECTOR OF EMERGENCY NURSING.WATER ATTENDANT [address] [place] [address] PCP - General Family Medicine 09/03/24 [place] Attendant Relationship Specialty Start Date End Date Lesa Soler DIRECTOR OF EMERGENCY NURSING.WATER ATTENDANT [address] [place] [address] PCP - General Family Medicine 09/03/24 [place] Att[employer] Relationship Specialty Start Date End Date Lesa Soler DIRECTOR OF EMERGENCY NURSING.WATER ATTENDANT [address] [place] [address] PCP - General Family Medicine 09/03/24 [place] Att[employer] Relationship Specialty Start Date End Date Lesa Soler DIRECTOR OF EMERGENCY NURSING.WATER ATTENDANT [address] [place] [address] PCP - General Family Medicine 09/03/24 [place] Attendant Relationship Specialty Start Date End Date Lesa Soler, DIRECTOR OF EMERGENCY NURSING.WATER ATTENDANT [address] [place] [address] PCP - General Family Medicine 09/03/24 [place] Att[employer] Relationship Specialty Start Date End Date Lesa Soler DIRECTOR OF EMERGENCY NURSING.WATER ATTENDANT [address] [place] [address] PCP - General Family Medicine 09/03/24 Team Status: Active Member Role Status Dates Lesa Soler TRANSPORTATION ESCORT, TRANSPORTATION ESCORT-C Primary Care Provider Active Team Status: Inactive Member Role Status Dates Lesa Soler TRANSPORTATION ESCORT, TRANSPORTATION ESCORT-C Primary Care Provider Active Start: February 06, 2025 End: February 06, 2025 Juan Tapia MD Emergency Provider Active Star t: February 06, 2025 End: February 06, 2025 [place] Attendant Relationship Specialty Start Date End Date Lesa Soler DIRECTOR OF EMERGENCY NURSING.WATER ATTENDANT [address] [place] [address] PCP - [facility] Medicine 09/03/24 Team Status: Inactive Member Role Status Dates Lesa Soler NP, TRANSPORTATION ESCORT-C Primary Care Provider Active Start: February 06, 2025 End: February 06, 2025 Juan Tapia MD Attending Provider Active Star t: February 06, 2025 End: February 06, 2025 Juan Tapia MD Emergency Provider Active Star t: February 06, 2025 End: February 06, 2025 Team Status: Inactive Member Role Status Dates Lesa Soler NP, TRANSPORTATION ESCORT-C Primary Care Provider Active Start: March 14, 2025 End: March 14, 2025 Dr. Andres Loyola DO Emergency Provider Active Start : March 14, 2025 End: March 14, 2025 Team Status: Active Member Role/Relationship Status Dates Lesa Soler NP, TRANSPORTATION ESCORT-C Primary Care Provider Active Team Status: Inactive Member Role/Relationship Status Dates Lesa Soler NP, TRANSPORTATION ESCORT-C Primary Care Provider Active Start: February 06, 2025 End: February 06, 2025 Juan Tapia MD Attending Provider Active Star t: February 06, 2025 End: February 06, 2025 Juan Tapia MD Emergency Provider Active Star t: February 06, 2025 End: February 06, 2025 Team Status: Inactive Member Role/Relationship Status Dates Lesa Soler NP, TRANSPORTATION ESCORT-C Primary Care Provider Active Start: March 14, 2025 End: March 14, 2025 Dr. Andres Loyola , DO Attending Provider Active Start : March 14, 2025 End: March 14, 2025 Dr. Andres Loyola , DO Emergency Provider Active Start : March 14, 2025 End: March 14, 2025 Team Status: Inactive Member Role/Relationship Status Dates Lesa Soler NP, TRANSPORTATION ESCORT-C Primary Care Provider Active Start: March 30, 2025 End: March 30, 2025 Dr. Ry James , DO Emergency Provider Active Start: March 30, 2025 End: March 30, 2025 Team Status: Inactive Member Role/Relationship Status Dates Lesa Soler NP, TRANSPORTATION ESCORT-C Primary Care Provider Active Start: March 30, [...] or prosecute any alcohol or drug abuse patient.[facility] the event this information is protected by the Federal Confidentiality of Alcohol and Drug Abuse Patient Records regulations: The Federal rules restrict any use of the information to criminally investigate or prosecute any alcohol or drug abuse patient.[facility] the event this information is protected by the Federal Confidentiality of Alcohol and Drug Abuse Patient Records regulations: The Federal rules restrict any use of the information to criminally investigate or prosecute any alcohol or drug abuse patient.[facility] the event this information is protected by the Federal Confidentiality of Alcohol and Drug Abuse Patient Records regulations: The Federal rules restrict any use of the information to criminally investigate or prosecute any alcohol or drug abuse patient.[facility] the event this information is protected by the Federal Confidentiality of Alcohol and Drug Abuse Patient Records regulations: The Federal rules restrict any use of the information to criminally investigate or prosecute any alcohol or drug abuse patient.[facility] the event this information is protected by the Federal Confidentiality of Alcohol and Drug Abuse Patient Records regulations: The Federal rules restrict any use of the information to criminally investigate or prosecute any alcohol or drug abuse patient.[facility] the event this information is protected by the Federal Confidentiality of Alcohol and Drug Abuse Patient Records regulations: The Federal rules restrict any use of the information to criminally investigate or prosecute any alcohol or drug abuse patient.[facility] the event this information is protected by the Federal Confidentiality of Alcohol and Drug Abuse Patient Records regulations: The Federal rules restrict any use of the information to criminally investigate or prosecute any alcohol or drug abuse patient.[facility] the event this information is protected by the Federal Confidentiality of Alcohol and Drug Abuse Patient Records regulations: The Federal rules restrict any use of the information to criminally investigate or prosecute any alcohol or drug abuse patient.[facility] the event this information is protected by the Federal Confidentiality of Alcohol and Drug Abuse Patient Records regulations: The Federal rules restrict any use of the information to criminally investigate or prosecute any alcohol or drug abuse patient.[facility] the event this information is protected by the Federal Confidentiality of Alcohol and Drug Abuse Patient Records regulations: The Federal rules restrict any use of the information to criminally investigate or prosecute any alcohol or drug abuse patient.[facility] the event this information is protected by the Federal Confidentiality of Alcohol and Drug Abuse Patient Records regulations: The Federal rules restrict any use of the information to criminally investigate or prosecute any alcohol or drug abuse patient.[facility] the event this information is protected by the Federal Confidentiality of Alcohol and Drug Abuse Patient Records regulations: The Federal rules restrict any use of the information to criminally investigate or prosecute any alcohol or drug abuse patient.[facility] the event this information is protected by the Federal Confidentiality of Alcohol and Drug Abuse Patient Records regulations: The Federal rules restrict any use of the information to criminally investigate or prosecute any alcohol or drug abuse patient.[facility] the event this information is protected by the Federal Confidentiality of Alcohol and Drug Abuse Patient Records regulations: The Federal rules restrict any use of the information to criminally investigate or prosecute any alcohol or drug abuse patient.[facility] Reason for Visit (unrecogniz ed section and [...] THERAPY MEDICAL NUTRITION ASSMT&IVNTJ INDIV EACH 15 SD Lesa Soler, DIRECTOR OF EMERGENCY NURSING.WATER ATTENDANT [address] [place] [address] [facility] [address] [place] [address] Referral ID Status Reason Start Date Expiration Date Visits Requested Visits Authorized [id number] Authorized PCP Requested Referral 09/03/2024 09/03/2025 1 [...] infertility Procedures CONSULT TO INFERTILITY CLINIC OFFICE/OUTPATIENT [facility] 60 [place] [address] [place] [address] Phone: tel: Referral ID Status Reason Start Date Expiration Date V isits Requested Visits Authorized [id number] Closed PCP Requested Referral Auto-Generated Referral 08/28/2024 08/28/2025 1 1 Reason Comments Diabetes Patient is going to make appointment to see eye doctor Reason Onset Date Comments ED Follow-up 02/06/2025 [facility]25 and [facility] ED 02/08/2025 Reason Onset Date Comments ED Follow-up 03/14/2025 [facility] 2024 Reason Comments Lab Orders Reason [...] BE BASED ON THE PRIMARY CLINICAL RECORDS. [facility]. provides no warranty or guarantee of the accuracy or completeness of information in this document.
[2025-04-04] MEDS: hydrOXYzine PAM 25 MG Capsule PO (10:56)
[2025-04-04 12:16] VITALS: BP 126/76; PULSE 73; RESP 16; TEMP 37.1; O2SAT 100
== END 2025-04-04 12:17 | disposition home or self-care (01) ==
PROVIDERS: Emergency Provider Emergency Medicine; PCP Nurse Practitioner Family; Visit Provider Emergency Medicine
DX: F41.0 Panic disorder [episodic paroxysmal anxiety] (principal); R11.15 Cyclical vomiting syndrome unrelated to migraine; F17.290 Nicotine dependence, other tobacco product, uncomplicated; Z79.899 Other long term (current) drug therapy
CPT/HCPCS: 99282

== ENCOUNTER 2025-04-16 09:39 | Emergency (ER) | payer MEDICAID, SELFPAY ==
[2025-04-16 09:41] VITALS: BP 123/51; PULSE 82; RESP 22; TEMP 36.3; O2SAT 100; BMI 30.1
--- NOTE | 2025-04-16 09:59 | EDS_ITS ---
HPI History of Present Illness Chief Complaint: Anxiety Informant: patient Narrative Narrative: Presents with increasing anxiety starting this morning at 5 AM. She had nausea and vomiting with no hematemesis. States she is going through a divorce living her friend's basement. She denies suicidal or homicidal ideations. She has had diagnosed anxiety and depression states previously lost her insurance therefore was off her Effexor and her Vraylar. She saw her psychiatrist yesterday restarted on her Vraylar and given hydroxyzine. She has been having increasing anxiety symptoms secondary to her situation. She has been breathing through it. She does admit to marijuana use last time was 10 days ago. Denies diarrhea. She denies any allergies. She denies auditory or visual hallucinations. Prior similar symptoms: Yes PFSH PFSH Medical History Anxiety Anxiety disorder Cannabis use disorder Cyclic vomiting syndrome PCOS (polycystic ovarian syndrome) Home Medications ?Medication ?Instructions ?Recorded ?Last Taken ?Type propranolol 80 mg capsule,24 20 mg PO BID PRN anxiety 02/23/24 Unknown History hr,extended release hydroxyzine pamoate 25 mg capsule 25 mg PO TID PRN PRN Anxiety #10 03/30/25 Unknown Rx CAPSULES ondansetron 4 mg disintegrating 4 mg PO Q8H PRN PRN Na usea #10 tabs 03/30/25 Unknown Rx tablet venlafaxine 150 mg 150 mg PO DAILY 03/30/25 Unk nown History capsule,extended release 24 hr (Effexor XR) cariprazine 1.5 mg capsule 1.5 mg PO DAILY 04/04/25 Un known History (Vraylar) promethazine 25 mg tablet 25 mg PO TID PRN nausea and 04/16/25 Unknown Rx vomiting #12 tabs Allergy/AdvReac Type Severity Reaction Status Date / Time No Known Allergies Allergy Verified 04/04/25 09:22 Family History Mother Cancer skin Surgical History right salpingectomy FH: cholecystectomy Social History housing: apartment number of children: 0 current occupational status: employed current occupation: [employer] Smoking Status: Former smoker Smokeless tobacco user: chewing tobacco alcohol intake: current alcohol intake frequency: holidays/special occasions only substance use type: marijuana seatbelt use: always do you feel safe at home: Yes additional social history: [employer] ROS ROS ED Constitutional Constitutional ED: Denies chills, fever(s) or sweats ENT ENT ED: Denies sore throat Cardiovascular Cardiovascular: Denies chest pain, leg edema, palpitations or racing heartbeat Respiratory/Chest Respiratory/Chest: Denies cough, dyspnea or dyspnea on exertion Gastrointestinal Gastrointestinal: Reports nausea and vomiting; Denies abdominal pain or diarrhea Genitourinary Genitourinary ED: Denies dysuria, hematuria or urinary frequency Musculoskeletal Musculoskeletal: Denies back pain, extremity pain or neck pain Integumentary Denies rash or wounds Neurologic Neurologic: Denies headache(s), paresthesias or weakness Psychiatric Psychiatric: Reports anxiety; Denies suicidal ideation or suicidal thoughts EXAM Physical Exam Const Vital Signs: 04/16/25 09:41 04/16/25 12:23 04/16/25 14:00 Temperature 97.4 F L Temperature Source Temporal Pulse Rate 82 79 78 Respiratory Rate 22 H 16 12 Blood Pressure 123/51 H 144/85 H 112/78 Blood Pressure Mean 75 104 89 Pulse Ox 100 100 98 Oxygen Delivery Method Room Air Room Air Room Air 04/16/25 14:52 Temperature 97.4 F L Temperature Source Pulse Rate 89 Respiratory Rate 14 Blood Pressure 125/56 H Blood Pressure Mean 79 Pulse Ox 100 Oxygen Delivery Method Positive well nourished and well developed General Appearance ED: well developed and NAD HEENT Reports moist mucous membranes normocephalic and atraumatic Eyes General Eye ED: Yes normal appearance of both eyes Neck full ROM Chest Wall Chest: Negative for tenderness Resp normal respiratory effort and normal air movement Effort and Inspection: symmetric chest movement; Negative for respiratory distress Cardio regular rate, regular rhythm and no murmurs Peripheral Pulses: pulses 2+ throughout GI normal to inspection, nondistended, normoactive bowel sounds and non-tender Palpation: Negative for guarding or rebound tenderness present Extremity normal to inspection General Extremety ED: Negative for edema or tenderness General Extremity: Negative for edema Neuro oriented x3 and no sensory deficits noted Sensorium / Orientation: awake and alert Psych Psych Narrative: Denies any suicidal or homicidal ideations. Skin no rashes or lesions noted and no wounds MDM MDM MDM Narrative Medical decision making narrative: Interventions / MDM: Differential diagnosis: Cyclic vomiting syndrome, history of anxiety Diagnosis considered but do not suspect: No clinical colitis or obstruction. Electrolyte abnormalities however labs were normal. Pancreatitis however lipase normal. My EKG interpretation: N/A Imaging independently reviewed and interpreted by myself: N/A External documents reviewed: N/A Test considered but not ordered:N/A ED course: Vital signs stable nonsurgical abdomen. Increased anxiety with cyclic vomiting history. IV established. Cyclic vomiting orts that use for medications. Fluids Pepcid Zofran and Ativan ordered. Will reevaluate. 1130: Reported by nursing patient was sleeping comfortably awake and vomited twice no hematemesis. Will order Thorazine and Benadryl. 1305: Reevaluation she states she is still nauseated. She is unclear if she threw up after the second round of medications. Offer topical capsaicin however she states she has been given that in the past and did not like the burning. I will order for IV Haldol I will send labs for evaluation. Will reevaluate. Symptoms improved with Haldol. Was tolerating oral fluids and reevaluation. Patient states Zofran does not help her. Therefore prescription for Phenergan sent to her pharmacy. Encouraged continued cessation from her marijuana use. All questions were answered. Re-evaluation: stable Disposition discussed with patient/family/significant other: Patient Case discussed with consulting clinician: N/A This note was generated with [employer] dictation software. It may contain incorrect words, spelling, and punctuation that were not noted in checking the note before signing. Lab Data Attestation: I reviewed the patient's lab results. Labs: Laboratory Results - last 24 hr 04/16/25 13:12 WBC 12.8 H RBC 4.60 Hgb 12.6 Hct 37.7 MCV 82.0 MCH 27.4 MCHC 33.4 RDW Std Deviation 41.6 RDW Coeff of Jennifer 14.2 Plt Count 250 MPV 11.3 Immature Gran % (Auto) 0.800 Neut % (Auto) 87.6 H Lymph % (Auto) 9.7 L [place] % (Auto) 1.6 Eos % (Auto) 0.0 Baso % (Auto) 0.3 Absolute Neuts (auto) 11.2 H Absolute Lymphs (auto) 1.24 Nucleated RBC % 0 Sodium 136 Potassium 3.7 Chloride 104 Carbon Dioxide 20.9 L Anion Gap 12 BUN 7 Creatinine 0.68 L Estim Creat Clear Calc 130.19 Est GFR (MDRD) Non-Af 119 BUN/Creatinine Ratio 9.7 L Glucose 157 H Calcium 10.1 Total Bilirubin 0.47 AST 21 ALT 21 Alkaline Phosphatase 57 Total Protein 7.3 Albumin 4.4 Globulin 2.9 Albumin/Globulin Ratio 1.5 Lipase 31 Discharge Plan Triage Chief Complaint: Anxiety ED Provider: Andres Quiroga Dx/Rx/DC Orders Clinical Impression: Cyclic vomiting syndrome, Cannabis use disorder, Anxiety disorder Instructions: Anxiety Disorders Tx, ED Cyclic Vomiting Syndrome Prescriptions: New promethazine 25 mg tablet 25 mg PO TID PRN (Reason: nausea and vomiting) Qty: 12 0RF No Action venlafaxine [Effexor XR] 150 mg capsule,extended release 24hr 150 mg PO DAILY ondansetron 4 mg tablet,disintegrating 4 mg PO Q8H PRN PRN (Reason: Nausea) Qty: 10 0RF hydroxyzine pamoate 25 mg capsule 25 mg PO TID PRN PRN (Reason: Anxiety) Qty: 10 0RF Vraylar 1.5 mg capsule 1.5 mg PO DAILY propranolol 80 mg capsule,extended release 24 hr 20 mg PO BID PRN (Reason: anxiety) Rx Instructions: half a tablet to 2 tablets up to twice a day Primary Care Provider: Joann Matamoros NP Referrals: Joann Matamoros NP, MANAGER PROCESS IMPROVEMENT-C [Primary Care Provider] - 1 Week Activity Restrictions/Additional Instructions: Your labs are stable. Continue to avoid marijuana use. Take medication as prescribed. Continue oral fluids for hydration. Print Language: German Disposition Disposition: Home, Self Care Discharge Date/Time: 04/16/25 14:53
[2025-04-16] MEDS: Lorazepam 2 MG/ML WCH Syringe 0.5 MG IV (10:09)
[2025-04-16] MEDS: 0.9% Normal Saline (1000mL) 1,000 ML 999 ML IV (10:38)
[2025-04-16] MEDS: Famotidine 200 MG/20 ML MDV 20 MG in 0.9% Normal Saline (Pres. free 8 ML 300 MG IV (10:38)
[2025-04-16 12:23] VITALS: BP 144/85; PULSE 79; RESP 16; O2SAT 100
[2025-04-16] MEDS: DiphenhydrAMINE 25 MG, ChlorproMAZINE 25 MG in 0.9% Normal Saline (100mL Bag) 100 ML 203 MG IV (12:26)
[2025-04-16 13:31] LABS: Hematocrit 37.7 % (37-47); Hemoglobin 12.6 g/dL (12.0-15.0); Immature Granulocytes Count 0.100 X10^3/uL (0.0-0.0); Mean Corp Hgb Conc 33.4 g/dL (32-36); Mean Corpuscular Volume 82.0 fL (81-99); Mean Platelet Vol. 11.3 fl (6.2-12.0); NRBC Flagged by Analyzer 0 % (0-5); Platelet Count 250 K/mm3 (150-450); RBC Distribution Width CV 14.2 % (11.6-14.6); RBC Distribution Width SD 41.6 fl (35.1-43.9); Red Blood Count 4.60 M/mm3 (4.2-5.4); White Blood Count 12.8 K/mm3 (4.4-11.0)
[2025-04-16 14:00] VITALS: BP 112/78; PULSE 78; RESP 12; O2SAT 98
[2025-04-16 14:10] LABS: AST(SGOT) 21 U/L (<=31); Alanine Aminotransfer ALT/SGPT 21 U/L (<=34); Albumin, Serum 4.4 g/dL (3.5-5.0); Alkaline Phosphatase 57 U/L (35-104); Anion Gap 12 (5-15); BUN 7 mg/dL (4-19); BUN/Creat Ratio 9.7 RATIO (10-20); Calcium,Total 10.1 mg/dL (7.6-11.0); Carbon Dioxide 20.9 mmol/L (21.0-32.0); Chloride 104 mmol/L (98-108); Estimated Creatinine Clearance 130.19 ml/min (50-250); Globulin 2.9 g/dL (2.2-4.2); Glucose 157 mg/dL (70-99); Lipase 31 U/L (13-75); Potassium 3.7 mmol/L (3.3-5.1)
[2025-04-16 14:52] VITALS: BP 125/56; PULSE 89; RESP 14; TEMP 36.3; O2SAT 100
== END 2025-04-16 14:53 | disposition home or self-care (01) ==
PROVIDERS: Emergency Provider Emergency Medicine; PCP Nurse Practitioner Family; Visit Provider Emergency Medicine
DX: R11.15 Cyclical vomiting syndrome unrelated to migraine (principal); F41.9 Anxiety disorder, unspecified; F12.90 Cannabis use, unspecified, uncomplicated; R11.2 Nausea with vomiting, unspecified; F32.A Depression, unspecified; T43.296A Underdosing of other antidepressants, initial encounter; T43.216A Underdosing of selective serotonin and norepinephrine reuptake inhibitors, initial encounter; Z91.120 Patient's intentional underdosing of medication regimen due to financial hardship; Z87.891 Personal history of nicotine dependence
CPT/HCPCS: 80053; 83690; 85025; 96361; 96365; 96375; 99283; A4216; J2405